=== PATIENT | female | born 1955 | race Two or more races ===

== ENCOUNTER → 2016-09-08 | Emergency (ER) | payer OTHER ==
[2016-09-08 22:47] VITALS: BP 139/89; PULSE 88; TEMP 98; BMI 24.7
--- NOTE | 2016-09-08 23:30 | PDOC ---
History of Present Illness - General History Source: Patient Exam Limitations: No Limitations - History of Present Illness Initial Comments: 09/08/16 23:39 The patient is a 60 year old female with significant past medical history of CVA , hypertension, and diabetes who presents to the ED after an acute episode of dizziness. Patient describes her dizziness as the room spinning with associated nausea and nonbloody vomiting around 9pm. Her symptoms resolved at time of arrival. She also has complaints of headache everyday for the past week, mostly in the morning. Patient denies diaphoresis, vision changes, slurred speech, bladder/bowel incontinence, focal weakness/paresthesias, SOB, chest pain, or palpitations. She denies h/o of vertigo. The patient denies fever, chills, cough, abdominal pain, and diarrhea. Allergies: NKDA Social History: No alcohol, tobacco, or drug use reported. Past Surgical History: None reported PCP: Dr. Darion Morales <Velma Monreal - Last Filed: 09/09/16 01:28> - General History Source: Patient, Family <Panchito Moreno - Last Filed: 09/09/16 01:58> - General Chief Complaint: Nausea/Vomiting Stated Complaint: BLOOD PRESSURE PROBLEM Time Seen by Provider: 09/08/16 23:20 Past History <Velma Monreal - Last Filed: 09/09/16 01:28> - Past Medical History CVA: Yes Diabetes: Yes HTN: Yes Psychiatric Problems: Yes (Depression) - Immunization History Immunization Up to Date: No - Psycho/Social/Smoking Cessation Hx Anxiety: No Suicidal Ideation: No Smoking History: Unknown if ever smoked Have you smoked in the past 12 months: No Hx Alcohol Use: No Drug/Substance Use Hx: No Substance Use Type: None Hx Substance Use Treatment: No <Panchito Moreno - Last Filed: 09/09/16 01:58> - Past Medical History Allergies/Adverse Reactions: Allergies Allergy/AdvReac Type Severity Reaction Status Date / Time No Known Allergies Allergy Verified 09/08/16 22:44 Home Medications: Ambulatory Orders Aspirin Coated [Ecotrin -] 81 mg PO DAILY #30 tablet.ec 10/27/14 Risperidone [Risperdal] 1 mg PO TID 12/18/15 Sertraline HCl [Zoloft] 100 mg PO DAILY 12/18/15 Clonazepam [Klonopin -] 0.5 mg PO Q12H PRN #0 tablet MDD 2 12/21/15 Insulin (LOG) Aspart [NovoLOG -] 15 units SQ TIDAC vial 12/21/15 Acetaminophen [Tylenol .Regular Strength -] 650 mg PO Q4H PRN #0 tablet Insulin Aspart [Novolog] 15 unit SQ AC #1 box 06/13/16 Insulin Detemir [Levemir Flextouch] 18 unit SQ HS #1 box 06/13/16 Miscellaneous Medical Supply [Outpatient Order] 1 unit SCJ QID #120 syringe Review of Systems - Review of Systems Able to Perform ROS?: Yes Comments:: 09/08/16 23:40 +dizziness, nausea, vomiting, headache Absent: fever, chills, cough, diaphoresis, vision changes, slurred speech, bladder/bowel incontinence, focal weakness/paresthesias, SOB, chest pain, palpitations, abdominal pain, and diarrhea <Velma Monreal - Last Filed: 09/09/16 01:28> *Physical Exam - Vital Signs Last Vital Signs Temp Pulse Resp BP Pulse Ox 98 F 88 18 139/89 99 09/08/16 22:45 09/08/16 22:45 09/08/16 22:45 09/08/16 22:45 09/08/16 22:45 <Velma Monreal - Last Filed: 09/09/16 01:28> - Vital Signs Last Vital Signs Temp Pulse Resp BP Pulse Ox 98 F 88 18 139/89 99 09/08/16 22:45 09/08/16 22:45 09/08/16 22:45 09/08/16 22:45 09/08/16 22:45 - Physical Exam General Appearance: Yes: Nourished, Appropriately Dressed. No: Apparent Distress HEENT: positive: EOMI, MANDI, Normal ENT Inspection Neck: positive: Supple. negative: Tender, Carotid bruit Respiratory/Chest: positive: Lungs Clear, Normal Breath Sounds. negative: Chest Tender, Respiratory Distress Cardiovascular: positive: Regular Rhythm, Regular Rate Gastrointestinal/Abdominal: positive: Normal Bowel Sounds, Soft Musculoskeletal: positive: Normal Inspection. negative: CVA Tenderness Extremity: positive: Normal Capillary Refill, Normal Range of Motion Neurologic: positive: furnace brazer II-XII NML intact, Fully Oriented, Alert, Normal Mood/ Affect, Normal Response, Motor Strength 5/5 <Panchito Moreno - Last Filed: 09/09/16 01:58> ED Treatment Course - RADIOLOGY Radiograph Interpretation: 09/09/16 01:28 EXAM: CT brain without contrast Reviewed by Imaging weight and balance control agent: FINDINGS: Normal brain. No hemorrhage. No visible infarct. No hydrocephalus shift or herniation. <Velma Monreal - Last Filed: 09/09/16 01:28> Medical Decision Making - Medical Decision Making 09/09/16 01:57 LIEKLY DEHYDRATION / VERTIGO NEURO INTACT CT OK ASYMPTOMATIC <Panchito Moreno - Last Filed: 09/09/16 01:58> *DC/Admit/Observation/Transfer - Attestations Scribe Attestion: 09/08/16 23:40 Documentation prepared by Velma Monreal, acting as medical secretary for Panchito Moreno MD <Velma Monreal - Last Filed: 09/09/16 01:28> <Panchito Moreno - Last Filed: 09/09/16 01:58> Diagnosis at time of Disposition: Vertigo - Discharge Dispostion Disposition: HOME Condition at time of disposition: Improved - Referrals Referrals: Darion Morales [Primary Care Provider] - Call tomorrow - Patient Instructions Additional Instructions: PLENTY OF FLUIDS (WATER) REST SEE YOUR DOCTOR TOMORROW DISCUSSED RETURN IF RECURRENCE OR NEW SYMPTOMS
== END | disposition home or self-care (01) ==
LOC: JER 22:37
DX: R12 Heartburn (principal); I10 Essential (primary) hypertension; E11.9 Type 2 diabetes mellitus without complications; Z79.4 Long term (current) use of insulin; F32.9 Major depressive disorder, single episode, unspecified; Z86.73 Personal history of transient ischemic attack (TIA), and cerebral infarction without residual deficits
CPT/HCPCS: 70450-TC; 99281-25

== ENCOUNTER → 2017-01-10 | Emergency (ER) | payer OTHER ==
[~2017-01-10] MED LIST: SODIUM CHLORIDE 1,000 ML IV STA
[2017-01-10 15:18] VITALS: PULSE 102; TEMP 97.9; BMI 23.9
--- NOTE | 2017-01-10 15:47 | PDOC ---
History of Present Illness - History of Present Illness Initial Comments: 01/10/17 16:02 Ms. Patel is a 61 year old female, with a significant past medical history of DMII, who presents to the emergency department on advice of PCP after experiencing blood sugars in the 500's for the past week. She further reports that she has also had 4 months of urgenc, requency and burning with urination. The patient denies chest pain, shortness of breath, headache and dizziness. Endorses some nausea for the past few days but denies fever, chills, vomit, diarrhea and constipation. Denies hematuria. Allergies: NKDA Past surgical history: tobal ligation, hysterectomy for fibroids, lipomas Social history: Denies smoking and EtOH PMD - Darion Morales 01/10/17 16:10 <Taz Howell - Last Filed: 01/10/17 17:55> <Rodriguez Mcmahon - Last Filed: 01/10/17 18:34> - General Chief Complaint: Blood Sugar Problem Stated Complaint: DEHYDRATED Time Seen by Provider: 01/10/17 15:32 Past History - Past Medical History CVA: Yes Diabetes: Yes HTN: Yes Psychiatric Problems: Yes (Depression) - Immunization History Immunization Up to Date: No - Psycho/Social/Smoking Cessation Hx Anxiety: No Suicidal Ideation: No Smoking History: Never smoked Have you smoked in the past 12 months: No Information on smoking cessation initiated: No Hx Alcohol Use: No Drug/Substance Use Hx: No Substance Use Type: None Hx Substance Use Treatment: No <Taz Howell - Last Filed: 01/10/17 17:55> <Rodriguez Mcmahon - Last Filed: 01/10/17 18:34> - Past Medical History Allergies/Adverse Reactions: Allergies Allergy/AdvReac Type Severity Reaction Status Date / Time No Known Allergies Allergy Verified 01/10/17 15:18 Home Medications: Ambulatory Orders Insulin (LOG) Aspart [NovoLOG -] 15 units SQ TIDAC vial 12/21/15 Insulin Aspart [Novolog] 15 unit SQ AC #1 box 06/13/16 Insulin Detemir [Levemir Flextouch] 18 unit SQ HS #1 box 06/13/16 Review of Systems - Review of Systems Comments:: 01/10/17 16:02 GENERAL/CONSTITUTIONAL: No fever or chills. No weakness. HEAD, EYES, EARS, NOSE AND THROAT: No change in vision. No ear pain or discharge. No sore throat. CARDIOVASCULAR: No chest pain or shortness of breath RESPIRATORY: No cough, wheezing, or hemoptysis. GASTROINTESTINAL: +Some nausea, no vomiting, diarrhea or constipation. GENITOURINARY: +Endorses dysuria and frequency MUSCULOSKELETAL: No joint or muscle swelling or pain. No neck or back pain. SKIN: No rash NEUROLOGIC: No headache, vertigo, loss of consciousness, or change in strength/ sensation. ENDOCRINE: No increased thirst. No abnormal weight change HEMATOLOGIC/LYMPHATIC: No anemia, easy bleeding, or history of blood clots. ALLERGIC/IMMUNOLOGIC: No hives or skin allergy. 01/10/17 16:17 <Taz Howell - Last Filed: 01/10/17 17:55> *Physical Exam - Vital Signs Last Vital Signs Temp Pulse Resp BP Pulse Ox 97.9 F 102 H 18 114/80 98 01/10/17 15:15 01/10/17 15:15 01/10/17 15:15 01/10/17 15:15 01/10/17 15:15 - Physical Exam Comments: 01/10/17 16:02 GENERAL: Awake, alert, and fully oriented, in no acute distress HEAD: No signs of trauma, normocephalic, atraumatic EYES: PERRLA, EOMI, sclera anicteric, conjunctiva clear ENT: Auricles normal inspection, hearing grossly normal, nares patent, oropharynx clear without exudates. Moist mucosa NECK: Normal ROM, supple, no lymphadenopathy, JVD, or masses LUNGS: No distress, speaks full sentences, clear to auscultation bilaterally HEART: Regular rate and rhythm, normal S1 and S2, no murmurs, rubs or gallops, peripheral pulses normal and equal bilaterally. ABDOMEN: Soft, nontender, normoactive bowel sounds. No guarding, no rebound. No masses EXTREMITIES: Skin of legs appears taught, Normal range of motion, no edema. No clubbing or cyanosis. NEUROLOGICAL: Cranial nerves II through XII grossly intact. Normal speech, normal gait, no focal sensorimotor deficits SKIN: Warm, Dry, no rashes or lesions noted. 01/10/17 16:17 01/10/17 17:55 <Taz Howell - Last Filed: 01/10/17 17:55> - Vital Signs Last Vital Signs Temp Pulse Resp BP Pulse Ox 97.9 F 102 H 18 114/80 98 01/10/17 15:15 01/10/17 15:15 01/10/17 15:15 01/10/17 15:15 01/10/17 15:15 <Rodriguez Mcmahon - Last Filed: 01/10/17 18:34> ED Treatment Course - LABORATORY CBC & Chemistry Diagram: 01/10/17 16:05 01/10/17 16:05 <Taz Howell - Last Filed: 01/10/17 17:55> - LABORATORY CBC & Chemistry Diagram: 01/10/17 16:05 01/10/17 16:05 - ADDITIONAL ORDERS Additional order review: Laboratory Results 01/10/17 01/10/17 01/10/17 16:20 16:15 16:05 INR PTT (Actin FS) VBG pH 7.32 POC VBG pCO2 58.7 H POC VBG pO2 21.2 L D Mixed VBG HCO3 29.2 H Sodium 141 Potassium 4.5 D Chloride 106 Carbon Dioxide 28 Anion Gap 7 L BUN 18 Creatinine 1.0 Creat Clearance w eGFR 56.00 Random Glucose 111 H D Calcium 10.2 H Total Bilirubin 0.3 D AST 19 ALT 27 D Alkaline Phosphatase 97 D Creatine Kinase CK-MB (CK-2) Troponin I Total Protein 8.4 H D Albumin 3.7 D Urine Color Straw Urine Appearance Clear Urine pH 5.0 Urine Protein Negative Urine Glucose (UA) 3+ H Urine Ketones Negative Urine Blood Negative Urine Nitrite Negative Urine Bilirubin Negative Urine Urobilinogen Negative Ur Leukocyte Esterase Negative Acetone, Qual 01/10/17 01/10/17 01/10/17 16:03 16:03 16:03 INR 0.95 PTT (Actin FS) 29.1 VBG pH POC VBG pCO2 POC VBG pO2 Mixed VBG HCO3 Sodium Potassium Chloride Carbon Dioxide Anion Gap BUN Creatinine Creat Clearance w eGFR Random Glucose Calcium Total Bilirubin AST ALT Alkaline Phosphatase Creatine Kinase 171 D CK-MB (CK-2) < 1.000 Troponin I < 0.02 Total Protein Albumin Urine Color Urine Appearance Urine pH Urine Protein Urine Glucose (UA) Urine Ketones Urine Blood Urine Nitrite Urine Bilirubin Urine Urobilinogen Ur Leukocyte Esterase Acetone, Qual Negative L 01/10/17 16:05 RBC 4.28 MCV 89.5 MCHC 33.0 RDW 14.2 MPV 10.3 - Medications Given in the ED: ED Medications Discontinued Medications Generic Name Dose Route Start Last Admin Trade Name Jessy PRN Reason Stop Dose Admin Sodium Chloride 1,000 mls @ 1,000 mls/hr 01/10/17 15:50 01/10/17 16:24 Normal Saline - IV 01/10/17 16:49 1,000 mls/hr .Q1H STA Administration <Rodriguez Mcmahon - Last Filed: 01/10/17 18:34> Medical Decision Making - Medical Decision Making 01/10/17 16:19 Patient presents on advice of PCP after week long of 500's sugars and 4 months of frequency, urgency, and dysuria. R/O DKA; look for source of increased blood sugars. Patient blood sugar 111. 01/10/17 17:55 All lab values returned unconcerning. Discharging with follow-up with PCP as needed. Patient in no acute distress. 01/10/17 17:56 <Taz Howell - Last Filed: 01/10/17 17:55> *DC/Admit/Observation/Transfer - Attestations Physician Attestion: 01/10/17 17:58 I, Dr. Taz Howell, attest that this document has been prepared under my direction and personally reviewed by me in its entirety. I further attest, that it accurately reflects all work, treatment, procedures and medical decision -making performed by me. <Taz Howell - Last Filed: 01/10/17 17:55> - Discharge Dispostion Admit: No <Rodriguez Mcmahon - Last Filed: 01/10/17 18:34> Diagnosis at time of Disposition: Hyperglycemia - Discharge Dispostion Disposition: HOME Condition at time of disposition: Improved - Referrals Referrals: Darion Morales [Primary Care Provider] - - Patient Instructions Printed Discharge Instructions: DI for Hyperglycemia -- Adult Additional Instructions: Vuelva al departamento de emergencia inmediatamente con CUALQUIER nuevo, persistente o empeorando los sntomas. Contine monitoreando blair nivel de azcar en la lito y tome blair insulina segn lo prescrito. Debe llamar y seguir con blair mdico maana para jyoti evaluacin ms detallada de rain sntomas. Los resultados fueron discutidos con usted. Por favor, asegrese de que blair mdico revise los resultados de blair evaluacin de emergencia. Return to the emergency department immediately with ANY new, persistent or worsening symptoms. Continue monitoring your blood sugar and take your insulin as prescribed. You MUST call and follow up with your doctor tomorrow for further evaluation of your symptoms. Results were discussed with you. Please make sure your doctor reviews the results of your emergency evaluation. Print Language: ROMANSH
--- NOTE | 2017-01-10 16:16 | PDOC ---
Attending Attestation - Resident Resident Name: Taz Howell - ED Attending Attestation I have performed the following: I have examined & evaluated the patient, The case was reviewed & discussed with the resident, I agree w/resident's findings & plan, Exceptions are as noted - HPI HPI: 01/10/17 18:19 61y hx of insulin dependent diabetes sent to the ED by PMD for hypergylcemia. Pt endorses having bGMs in the 3-500s at home,she states she has pati urinating frequently and drinking milk and water. Pt denies any recent illnesses, fever/ chills, cp, abd pain, diarrhea. No recent change in meds. pts exam unremrakble pts labs reviewed no signs of DKA PMD - Darion Moarles 01/10/17 18:38 will dc the pt with pmd fu return precautions were discussed I discussed the physical exam findings, ancillary test results and final diagnoses with the patient. I answered all of the patient's questions. The patient was satisfied with the care received and felt comfortable with the discharge plan and treatment plan. The patient will call their primary care physician within 24 hours to arrange follow-up and will return to the Emergency Department with any new, persistent or worsening symptoms. - Physicial Exam PE: 01/10/17 18:38 see above - Medical Decision Making 01/10/17 18:40 see above
[2017-01-10 16:26] LABS: MCH 29.6 pg (25.7-33.7); MEAN CELL VOLUME 89.5 fl (80-96); MEAN PLT VOLUME 10.3 fl (7.5-11.1); PLATELET COUNT 192 K/MM3 (134-434); RDW 14.2 % (11.6-15.6); WHITE BLOOD COUNT 5.6 K/mm3 (4.0-10.0)
[2017-01-10 16:32] LABS: VENOUS PH 7.32 (7.32-7.42)
[2017-01-10 16:33] LABS: VENOUS BLOOD GAS HCO3 29.2 meq/L (19-25)
[2017-01-10 16:33] LABS: URINE APPEARANCE CLEAR; URINE BILIRUBIN NEGATIVE (NEGATIVE); URINE BLOOD NEGATIVE (NEGATIVE); URINE COLOR STRAW; URINE GLUCOSE (UA) 3+ (NEGATIVE); URINE KETONE NEGATIVE (NEGATIVE); URINE LEUK ESTERASE NEGATIVE (NEGATIVE); URINE NITRITE NEGATIVE (NEGATIVE); URINE PROTEIN NEGATIVE (NEGATIVE); URINE UROBILINOGEN NEGATIVE mg/dL (0.2-1.0)
[2017-01-10 16:41] LABS: INR 0.95 (0.82-1.09); PROTHROMBIN TIME (PATIENT) 10.4 SEC (9.98-11.88)
[2017-01-10 16:44] LABS: ACTIVATED PTT 29.1 SECONDS (26.9-34.4)
[2017-01-10 16:54] LABS: ALBUMIN 3.7 g/dl (3.4-5.0); ANION GAP 7 (8-16); BILIRUBIN,TOTAL 0.3 mg/dL (0.2-1.0); CALCIUM 10.2 mg/dL (8.5-10.1); CO2 28 mmol/L (21-32); GLUCOSE,RANDOM 111 mg/dL (74-106); SGOT/AST 19 U/L (15-37); SGPT/ALT 27 U/L (12-78); TOT PROT 8.4 g/dl (6.4-8.2)
[2017-01-10 16:55] LABS: ALK PHOS 97 U/L (45-117)
[2017-01-10 16:57] LABS: TROPONIN I < 0.02 ng/ml (0.00-0.05)
[2017-01-10 18:42] VITALS: BP 138/67
== END | disposition home or self-care (01) ==
LOC: JER 15:12
PROC: 3E0337Z Introduction of Electrolytic and Water Balance Substance into Peripheral Vein, Percutaneous Approach (ICD-10-PCS; principal; 2017-01-10)
DX: E11.65 Type 2 diabetes mellitus with hyperglycemia (principal); Z79.4 Long term (current) use of insulin; I10 Essential (primary) hypertension; F32.9 Major depressive disorder, single episode, unspecified; Z86.73 Personal history of transient ischemic attack (TIA), and cerebral infarction without residual deficits
CPT/HCPCS: 36415; 80053; 81003; 82009; 82550; 82553; 82803; 84484; 85027; 85610; 85730; 87086; 96360; 99284-25

== ENCOUNTER 2017-06-25 12:14 | Inpatient (IN) | payer OTHER ==
[2017-06-25 12:29] VITALS: BMI 24.7
[2017-06-25 13:08] LABS: BASO % 0.4 % (0-2.0); EOS % 0.2 % (0-4.5); HEMATOCRIT 43.6 % (32.4-45.2); HEMOGLOBIN 14.1 GM/dL (10.7-15.3); LYMPH % 9.3 % (8-40); MCH 28.9 pg (25.7-33.7); MCHC 32.4 g/dl (32.0-36.0); MEAN CELL VOLUME 89.3 fl (80-96); MONO % 5.9 % (3.8-10.2); NEUT % 84.2 % (42.8-82.8); PLATELET COUNT 187 K/MM3 (134-434); RBC 4.88 M/mm3 (3.60-5.2); WHITE BLOOD COUNT 10.3 K/mm3 (4.0-10.0)
--- NOTE | 2017-06-25 13:10 | PDOC ---
History of Present Illness - General Chief Complaint: Blood Sugar Problem Stated Complaint: HYPERGLYCEMIA Time Seen by Provider: 06/25/17 12:24 History Source: Patient, Family - History of Present Illness Initial Comments: 06/25/17 13:06 This is a 61 y/o female with h/o DM2 for around 5 to 6 years, on Insulin for 5 years, CVA, HTN and anxiety/depression presenting for hyperglycemia. Last seen her PCP Dr. Betancourt 2 weeks ago. Complains with polyuria and polydipsia. Checks her blood sugar twice a day. In the morning its often between 60-120 and up to 500 States that she eats a lot of plantain-like foods, wasn't aware they were carb- heavy foods . Past History - Past Medical History Allergies/Adverse Reactions: Allergies Allergy/AdvReac Type Severity Reaction Status Date / Time No Known Allergies Allergy Verified 06/25/17 12:28 Home Medications: Ambulatory Orders Insulin (LOG) Aspart [NovoLOG -] 15 units SQ TIDAC vial 12/21/15 Insulin Aspart [Novolog] 15 unit SQ AC #1 box 06/13/16 Insulin Detemir [Levemir Flextouch] 18 unit SQ HS #1 box 06/13/16 CVA: Yes COPD: No Diabetes: Yes HTN: Yes Psychiatric Problems: Yes (Depression) - Immunization History Immunization Up to Date: No - Suicide/Smoking/Psychosocial Hx Smoking History: Unknown if ever smoked Have you smoked in the past 12 months: No Information on smoking cessation initiated: No Hx Alcohol Use: No Drug/Substance Use Hx: No Substance Use Type: None Hx Substance Use Treatment: No Review of Systems - Review of Systems Able to Perform ROS?: Yes Constitutional: No: Symptoms Reported HEENTM: No: Symptoms Reported Respiratory: No: Symptoms reported Cardiac (ROS): No: Symptoms Reported ABD/GI: No: Symptoms Reported : Yes: Burning, Frequency, Flank Pain. No: Symptoms Reported Musculoskeletal: No: Symptoms Reported Integumentary: No: Symptoms Reported Neurological: No: Symptoms reported Endocrine: Yes: Increased Thirst, Increased Urine. No: Symptoms Reported All Other Systems: Reviewed and Negative *Physical Exam - Vital Signs Last Vital Signs Temp Pulse Resp BP Pulse Ox 98.3 F 103 H 18 129/82 100 06/25/17 12:19 06/25/17 12:19 06/25/17 12:19 06/25/17 12:19 06/25/17 12:19 - Physical Exam General Appearance: Yes: Nourished, Appropriately Dressed. No: Apparent Distress HEENT: positive: EOMI, MANDI, Normal ENT Inspection, Other (dry mucus membranes) Neck: negative: Tender Respiratory/Chest: positive: Lungs Clear, Normal Breath Sounds. negative: Chest Tender, Respiratory Distress Cardiovascular: positive: Regular Rhythm, Regular Rate, S1, S2 Gastrointestinal/Abdominal: positive: Normal Bowel Sounds, Flat, Soft. negative : Tender Extremity: positive: Other (ambutation of distal phalanges of 2-5 toes) Integumentary: positive: Normal Color, Dry ED Treatment Course - LABORATORY CBC & Chemistry Diagram: 06/25/17 12:41 06/25/17 15:30 Medical Decision Making - Medical Decision Making 06/25/17 15:38 61F presents with hyperglycemia (546)and polyuria. Spoke to daughter who states that patient is not compliant with meds when alone. Spoke to Dr. Nath who agreed with the plan to replenish fluids + insulin and repeat cmp Hyperglycemia correction revealed hypernatremia (154) for which patient will be admitted under Dr. Lemons 06/25/17 21:36 *DC/Admit/Observation/Transfer Diagnosis at time of Disposition: Dehydration with hypernatremia - Discharge Dispostion Condition at time of disposition: Stable Admit: Yes - Referrals - Patient Instructions - Post Discharge Activity
[2017-06-25 13:17] LABS: URINE APPEARANCE CLEAR; URINE BILIRUBIN NEGATIVE (NEGATIVE); URINE BLOOD NEGATIVE (NEGATIVE); URINE COLOR LTYELLOW; URINE GLUCOSE (UA) 3+ (NEGATIVE); URINE KETONE TRACE (NEGATIVE); URINE LEUK ESTERASE NEGATIVE (NEGATIVE); URINE NITRITE NEGATIVE (NEGATIVE); URINE UROBILINOGEN NEGATIVE mg/dL (0.2-1.0)
[2017-06-25 13:18] LABS: URINE PROTEIN 1+ (NEGATIVE)
[2017-06-25 13:19] LABS: EPI CELLS RARE /HPF (FEW)
--- NOTE | 2017-06-25 13:26 | PDOC ---
Attending Attestation - Resident Resident Name: CollinsAbdoulaye - ED Attending Attestation I have performed the following: I have examined & evaluated the patient, The case was reviewed & discussed with the resident, I agree w/resident's findings & plan, Exceptions are as noted - HPI HPI: 06/25/17 13:25 61 year old female with past medical history of hypertension, insulin-dependent diabetes, hyperlipidemia presentsto the emergency department for hyperglycemia. The patient reports that for several months she's been having difficulty controlling her sugars and has been enduring significant amount of polyuria and polydipsia. She had recently started to feel some dysuria but denies any abdominal pain or fevers. Her sugars have been close to 500s at home. She reports that she is adherent with her long-acting short acting insulin. Denies any chest pain or short of breath. Came into the ED for further evaluation. - Physicial Exam PE: 06/25/17 13:25 GENERAL: Awake, alert, and fully oriented, in no acute distress. +Dry Mucous Membranes HEAD: No signs of trauma EYES: PERRLA, EOMI, sclera anicteric, conjunctiva clear ENT: Auricles normal inspection, hearing grossly normal, nares patent NECK: Normal ROM, supple LUNGS: Breath sounds equal, clear to auscultation bilaterally. No wheezes, and no crackles HEART: Regular rate and rhythm, normal S1 and S2, no murmurs, rubs or gallops ABDOMEN: Soft, nontender, normoactive bowel sounds. No guarding, no rebound. No masses EXTREMITIES: Normal range of motion, no edema. No clubbing or cyanosis. No cords, erythema, or tenderness NEUROLOGICAL: Cranial nerves II through XII grossly intact. Normal speech, normal gait SKIN: Warm, Dry, normal turgor, no rashes or lesions noted. - Medical Decision Making 06/25/17 13:25 Vital Signs Temp Pulse Resp BP Pulse Ox 98.3 F 103 H 18 129/82 100 06/25/17 12:19 06/25/17 12:19 06/25/17 12:19 06/25/17 12:19 06/25/17 12:19 Patient with uncontrolled diabetes presents with hyperglycemia. Patient is to be dry mucous membranes which is consistent with her hyperglycemia. We'll rule out DKA and check for urinary tract infection. Labs, UA, give IV fluids. We'll likely need IV insulin and reassess. 06/25/17 14:33 CBC, BMP 06/25/17 12:41 06/25/17 12:41 CMP Sodium 145 mmol/L (136-145) 06/25/17 12:41 Potassium 4.2 mmol/L (3.5-5.1) 06/25/17 12:41 Chloride 108 mmol/L (98-107) H 06/25/17 12:41 Carbon Dioxide 25 mmol/L (21-32) 06/25/17 12:41 Anion Gap 12 (8-16) 06/25/17 12:41 BUN 28 mg/dL (7-18) H D 06/25/17 12:41 Creatinine 1.6 mg/dL (0.55-1.02) H D 06/25/17 12:41 Creat Clearance w eGFR 32.55 (>60) 06/25/17 12:41 Random Glucose 545 mg/dL (74-106) H* D 06/25/17 12:41 Calcium 10.7 mg/dL (8.5-10.1) H D 06/25/17 12:41 Magnesium 2.1 mg/dL (1.8-2.4) 06/25/17 12:41 Total Bilirubin 0.2 mg/dL (0.2-1.0) D 06/25/17 12:41 AST 15 U/L (15-37) 06/25/17 12:41 ALT 27 U/L (12-78) 06/25/17 12:41 Alkaline Phosphatase 122 U/L (45-117) H D 06/25/17 12:41 Creatine Kinase 78 IU/L (26-192) 06/25/17 12:41 Troponin I < 0.02 ng/ml (0.00-0.05) 06/25/17 12:41 Total Protein 8.4 g/dl (6.4-8.2) H 06/25/17 12:41 Albumin 3.7 g/dl (3.4-5.0) 06/25/17 12:41 Urine Test Results Urine Color Ltyellow 06/25/17 12:41 Urine Appearance Clear 06/25/17 12:41 Urine pH 5.0 (5.0-8.0) 06/25/17 12:41 Ur Specific Humphreys 1.022 (1.001-1.035) 06/25/17 12:41 Urine Protein 1+ (NEGATIVE) H 06/25/17 12:41 Urine Glucose (UA) 3+ (NEGATIVE) H 06/25/17 12:41 Urine Ketones Trace (NEGATIVE) H 06/25/17 12:41 Urine Blood Negative (NEGATIVE) 06/25/17 12:41 Urine Nitrite Negative (NEGATIVE) 06/25/17 12:41 Urine Bilirubin Negative (NEGATIVE) 06/25/17 12:41 Ur Epithelial Cells Rare /HPF (FEW) 06/25/17 12:41 Patient has hyperglycemia but no increased anion gap. Patient does have a degree of acute kidney insufficiency which is suspect is likely prerenal. We'll give us a dose of IV insulin and some IV fluids and repeat the CMP. Intracranial remains elevated, the patient will need to be admitted to the hospital. If the creatinine and glucose is improved, patient be discharged with outpatient follow-up. This plan was discussed with the patient's check airman Dr. Stern who agrees with the plan. 06/25/17 16:16 CMP Sodium 151 mmol/L (136-145) H 06/25/17 15:30 Potassium 3.8 mmol/L (3.5-5.1) 06/25/17 15:30 Chloride 114 mmol/L (98-107) H 06/25/17 15:30 Carbon Dioxide 27 mmol/L (21-32) 06/25/17 15:30 Anion Gap 10 (8-16) 06/25/17 15:30 BUN 24 mg/dL (7-18) H 06/25/17 15:30 Creatinine 1.2 mg/dL (0.55-1.02) H D 06/25/17 15:30 Creat Clearance w eGFR 45.37 (>60) 06/25/17 15:30 Random Glucose 238 mg/dL (74-106) H D 06/25/17 15:30 Calcium 9.7 mg/dL (8.5-10.1) 06/25/17 15:30 Magnesium 2.1 mg/dL (1.8-2.4) 06/25/17 12:41 Total Bilirubin 0.2 mg/dL (0.2-1.0) 12/31/17 15:30 AST 11 U/L (15-37) L D 06/25/17 15:30 ALT 24 U/L (12-78) 06/25/17 15:30 Alkaline Phosphatase 105 U/L (45-117) 06/25/17 15:30 Creatine Kinase 78 IU/L (26-192) 06/25/17 12:41 Troponin I < 0.02 ng/ml (0.00-0.05) 06/25/17 12:41 Total Protein 7.1 g/dl (6.4-8.2) 06/25/17 15:30 Albumin 3.1 g/dl (3.4-5.0) L 06/25/17 15:30 Repeat Cr is 2.1, though Na is 151. Corrected Na is 154. Will need to admit the patient to the hospital for hyperglycemia, dehydration and hypernatremia. Pt's MD is Dr. Darion Morales Heart Score/ECG Review #1 ECG reviewed & interpreted by me at: 12:35 06/25/17 13:26 NSR 105, no std/arya, Q wave III, normal axis, normal intervals, QTC 399 msec
[2017-06-25 13:33] LABS: ALBUMIN 3.7 g/dl (3.4-5.0); ANION GAP 12 (8-16); BLOOD UREA NITROGEN 28 mg/dL (7-18); CALCIUM 10.7 mg/dL (8.5-10.1); CHLORIDE 108 mmol/L (98-107); CO2 25 mmol/L (21-32); MAGNESIUM 2.1 mg/dL (1.8-2.4); POTASSIUM 4.2 mmol/L (3.5-5.1); SODIUM 145 mmol/L (136-145)
[2017-06-25 13:39] LABS: ALK PHOS 122 U/L (45-117); BILIRUBIN,TOTAL 0.2 mg/dL (0.2-1.0); CREATININE 1.6 mg/dL (0.55-1.02); SGOT/AST 15 U/L (15-37); SGPT/ALT 27 U/L (12-78); TOT PROT 8.4 g/dl (6.4-8.2)
[2017-06-25 13:47] LABS: GLUCOSE,RANDOM 545 mg/dL (74-106)
[2017-06-25] MEDS ORDERED: SODIUM CHLORIDE 1,000 ML IV STA (13:51)
[2017-06-25] MEDS ORDERED: INSULIN REGULAR HUMAN 100 UNITS/ML *VIAL IVPUSH ONE (13:51)
[2017-06-25] MEDS ORDERED: INSULIN REGULAR HUMAN 100 UNITS/ML *VIAL ONE (13:55)
--- NOTE | 2017-06-25 14:49 | EKG ---
Test Reason : Blood Pressure : / mmHG Vent. Rate : 105 BPM Atrial Rate : 105 BPM P-R Int : 162 ms QRS Dur : 080 ms QT Int : 302 ms P-R-T Axes : 057 003 034 degrees QTc Int : 399 ms SINUS TACHYCARDIA POSSIBLE LEFT ATRIAL ENLARGEMENT ABNORMAL ECG WHEN COMPARED WITH ECG OF 08-JUN-2016 16:24, NO SIGNIFICANT CHANGE WAS FOUND BASELINE ARTIFACT Confirmed by ASH CASTANO MD ([id number]) on 06/25/2017 2:48:38 PM Referred By: Confirmed By:ASH CASTANO MD
[2017-06-25 16:08] LABS: ALBUMIN 3.1 g/dl (3.4-5.0); ALK PHOS 105 U/L (45-117); ANION GAP 10 (8-16); BILIRUBIN,TOTAL 0.2 mg/dL (0.2-1.0); BLOOD UREA NITROGEN 24 mg/dL (7-18); CALCIUM 9.7 mg/dL (8.5-10.1); CHLORIDE 114 mmol/L (98-107); CO2 27 mmol/L (21-32); CREATININE 1.2 mg/dL (0.55-1.02); GLUCOSE,RANDOM 238 mg/dL (74-106); POTASSIUM 3.8 mmol/L (3.5-5.1); SGOT/AST 11 U/L (15-37); SGPT/ALT 24 U/L (12-78); SODIUM 151 mmol/L (136-145); TOT PROT 7.1 g/dl (6.4-8.2)
--- NOTE | 2017-06-25 17:34 | HP ---
CHIEF COMPLAINT: polyuria/polydipsia PCP: Dr. Darion Morales HISTORY OF PRESENT ILLNESS: hyperglycemia Patient is a 61 year old female with a significant past medical history of hypertension (on no home meds), insulin-dependent diabetes (non compliance reported), hyperlipidemia and CVA (left sided residual - walks with a cane). She presents to the ED for hyperglycemia of 545. As per ED records, patient reports that she has had difficulty controlling her blood sugars at home and has had significant polyuria and polydipsia. She reports her blood sugars to be in the 500s at home despite injecting herself with Novolog Flex pen 70/20 12 units before meals and Tresiba 20 units in the morning. She states she has been compliant with the home medications but does not count carbs or follow a diabetic diet. [place] pashto speak [place]. In her grindstone language she stated to me that she once once in a diabetic coma in the [place]. She also reports that she had a gangrenous right foot 3rd toe tip and the tip of the toe fell off on its own without surgical interventions. She came into the ED for further evaluation of her hyperglycemia. She states she is compliant with her home medications. ER course was notable for: (1) hyperglycemia 545, given 5 units of short acting insulin in ED > glucose 200s (2) hypernatremia 145, then 151 after 1 liter fluid bolus (3) EKG ST at 105, possible left atrial infarctions, no significant changes compared to EKG of 06/08/16 (4) Acetone negative, anion gap 10 (5) Bun 24/1.6 (6) UA noted Recent Travel: none recently PAST MEDICAL HISTORY: hypertension (on no home meds), insulin-dependent diabetes (non compliance reported) and hyperlipidemia. PAST SURGICAL HISTORY: none Social History: Smoking: denies Alcohol: denies Drugs: denies Family History: Allergies No Known Allergies Allergy (Verified 06/25/17 12:28) HOME MEDICATIONS: Home Medications Medication Instructions Recorded Insulin (LOG) Aspart [NovoLOG -] 15 units SQ TIDAC vial 12/21/15 Insulin Aspart [Novolog] 15 unit SQ AC #1 box 06/13/16 Insulin Detemir [Levemir Flextouch] 18 unit SQ HS #1 box 06/13/16 REVIEW OF SYSTEMS CONSTITUTIONAL: Absent: fever, chills, diaphoresis, generalized weakness, malaise, loss of appetite, weight change HEENT: Absent: rhinorrhea, nasal congestion, throat pain, throat swelling, difficulty swallowing, mouth swelling, ear pain, eye pain, visual changes CARDIOVASCULAR: Absent: chest pain, syncope, palpitations, irregular heart rate, lightheadedness , peripheral edema RESPIRATORY: Absent: cough, shortness of breath, dyspnea with exertion, orthopnea, wheezing, stridor, hemoptysis GASTROINTESTINAL: Absent: abdominal pain, abdominal distension, nausea, vomiting, diarrhea, constipation, melena, hematochezia GENITOURINARY: Absent:flank pain, genital pain MUSCULOSKELETAL: Absent: myalgia, arthralgia, joint swelling, back pain, neck pain SKIN: Absent: rash, itching, pallor HEMATOLOGIC/IMMUNOLOGIC: Absent: easy bleeding, easy bruising, lymphadenopathy, frequent infections ENDOCRINE: Absent: unexplained weight gain, unexplained weight loss, heat intolerance, cold intolerance NEUROLOGIC: Absent: headache, focal weakness or paresthesias, dizziness, unsteady gait, seizure, mental status changes, bladder or bowel incontinence PSYCHIATRIC: Absent: anxiety, depression, suicidal or homicidal ideation, hallucinations. PHYSICAL EXAMINATION Vital Signs - 24 hr 06/25/17 06/25/17 12:19 16:47 Temperature 98.3 F Pulse Rate 103 H Pulse Rate [ 68 Left Apical] Respiratory 18 16 Rate Blood Pressure 129/82 Blood Pressure 137/81 [Left Arm] O2 Sat by Pulse 100 98 Oximetry (%) GENERAL: Awake, alert, and fully oriented, in no acute distress. HEAD: Normal with no signs of trauma. EYES: Pupils equal, round and reactive to light, extraocular movements intact, sclera anicteric, conjunctiva clear. No lid lag. EARS, NOSE, THROAT: Ears normal, nares patent, oropharynx clear without exudates. Moist mucous membranes. NECK: Normal range of motion, supple without lymphadenopathy, JVD, or masses. LUNGS: Breath sounds equal, clear to auscultation bilaterally. No wheezes, and no crackles. No accessory muscle use. HEART: Regular rate and rhythm, normal S1 and S2 without murmur, rub or gallop. ABDOMEN: Soft, nontender, not distended, normoactive bowel sounds, no guarding, no rebound, no masses. No hepatomegaly or splenomegaly. MUSCULOSKELETAL: Normal range of motion at all joints. No bony deformities or tenderness. No CVA tenderness. UPPER EXTREMITIES: 2+ pulses, warm, well-perfused. No cyanosis. No clubbing. No peripheral edema. LOWER EXTREMITIES: 2+ pulses, warm, well-perfused. No calf tenderness. No peripheral edema. NEUROLOGICAL: Cranial nerves II-XII intact. Normal speech. Normal gait. PSYCHIATRIC: Cooperative. Good eye contact. Appropriate mood and affect. SKIN: Warm, dry, normal turgor, no rashes or lesions noted, normal capillary refill. Laboratory Results - last 24 hr 06/25/17 06/25/17 06/25/17 12:41 12:41 12:41 WBC 10.3 H D RBC 4.88 Hgb 14.1 D Hct 43.6 D MCV 89.3 MCH 28.9 MCHC 32.4 RDW 14.0 Plt Count 187 MPV 11.0 D Neutrophils % 84.2 H D Lymphocytes % 9.3 D Monocytes % 5.9 Eosinophils % 0.2 D Basophils % 0.4 Sodium 145 Potassium 4.2 Chloride 108 H Carbon Dioxide 25 Anion Gap 12 BUN 28 H D Creatinine 1.6 H D Creat Clearance w eGFR 32.55 Random Glucose 545 H* D Calcium 10.7 H D Magnesium 2.1 Total Bilirubin 0.2 D AST 15 ALT 27 Alkaline Phosphatase 122 H D Creatine Kinase 78 Troponin I < 0.02 Total Protein 8.4 H Albumin 3.7 Urine Color Ltyellow Urine Appearance Clear Urine pH 5.0 Ur Specific [place] 1.022 Urine Protein 1+ H Urine Glucose (UA) 3+ H Urine Ketones Trace H Urine Blood Negative Urine Nitrite Negative Urine Bilirubin Negative Urine Urobilinogen Negative Urine WBC (Auto) 1 Urine RBC (Auto) 1 Ur Epithelial Cells Rare Acetone, Qual 06/25/17 06/25/17 13:00 15:30 WBC RBC Hgb Hct MCV MCH MCHC RDW Plt Count MPV Neutrophils % Lymphocytes % Monocytes % Eosinophils % Basophils % Sodium 151 H Potassium 3.8 Chloride 114 H Carbon Dioxide 27 Anion Gap 10 BUN 24 H Creatinine 1.2 H D Creat Clearance w eGFR 45.37 Random Glucose 238 H D Calcium 9.7 Magnesium Total Bilirubin 0.2 AST 11 L D ALT 24 Alkaline Phosphatase 105 Creatine Kinase Troponin I Total Protein 7.1 Albumin 3.1 L Urine Color Urine Appearance Urine pH Ur Specific [place] Urine Protein Urine Glucose (UA) Urine Ketones Urine Blood Urine Nitrite Urine Bilirubin Urine Urobilinogen Urine WBC (Auto) Urine RBC (Auto) Ur Epithelial Cells Acetone, Qual Negative L ASSESSMENT/PLAN: Patient is a 61 year old female with a significant past medical history of hypertension (on no home meds), insulin-dependent diabetes (non compliance reported), hyperlipidemia and CVA (left sided residual - walks with a cane). She presents to the ED for hyperglycemia of 545. As per ED records, patient reports that she has had difficulty controlling her blood sugars at home and has had significant polyuria and polydipsia. She reports her blood sugars to be in the 500s at home despite injecting herself with Novolog Flex pen 70/20 12 units before meals and Tresiba 20 units in the morning. She states she has been compliant with the home medications but does not count carbs or follow a diabetic diet. [place] pashto speak only. In her grindstone language she stated to me that she once once in a diabetic coma in the [place]. She also reports that she had a gangrenous right foot 3rd toe tip and the tip of the toe fell off on its own without surgical interventions. She came into the ED for further evaluation of her hyperglycemia. She states she is compliant with her home medications. Endocrine: Hyperglycemia/Diabetes mellitus No anion gap, + acetone BGMs 500 to 230 after insulin given in ED Start on Novolog SS, Levemir at bedtime Uptitrate Document Restorer consulted by ED [id number] in a.m. Renal Acute Kidney Injury Likely Pre renal 1/2 NS @ 50cc/hr Repeat CMP. a.m. Renal ultrasound if bun/creat remain elevated : Polyuria, UA reviewed Protein +1, Ketones Urine culture pendind Urinary Frequency, UC sent Monitor No signs of infection Hyperkalemia Given fluid bolus, NA now 154 corrected 1/2 NS, repeat labs at 9p today Cardiology: Hypertension, controlled Not on home medications As per pt, her MD took her off cardiac meds 2 years ago Monitor BP Hyperlipidemia Lipid panel in a.m Neuro: CVA, left sided weakness Walks with cane Reports she is not on Asa Will start here F.E.N. Fluids: 1/2 ns at 50cc/hr Electrolytes: hyperna: corrected 154 Nutrition: diabetic diet Prophylaxis: DVT: deferred, LOS <48 hours GI: deferreed Disposition . full code, OBS
[2017-06-25] MEDS ORDERED: INSULIN SLIDING SCALE (NOVOLOG) 1 VIAL SQ SCH (17:45)
[2017-06-25] MEDS: SODIUM CHLORIDE 0.45% 1,000 ML IV SCH ×2 (18:30→21:09)
[2017-06-25] MEDS ORDERED: INSULIN DETEMIR 100 UNITS/ML MDV SQ SCH (22:00)
[2017-06-25 22:10] LABS: ALBUMIN 2.8 g/dl (3.4-5.0); ANION GAP 5 (8-16); BILIRUBIN,TOTAL 0.2 mg/dL (0.2-1.0); BLOOD UREA NITROGEN 21 mg/dL (7-18); CALCIUM 8.5 mg/dL (8.5-10.1); CHLORIDE 111 mmol/L (98-107); CO2 29 mmol/L (21-32); CREATININE 1.2 mg/dL (0.55-1.02); SGOT/AST 10 U/L (15-37); SGPT/ALT 20 U/L (12-78); SODIUM 145 mmol/L (136-145); TOT PROT 6.5 g/dl (6.4-8.2)
[2017-06-25 22:11] LABS: ALK PHOS 94 U/L (45-117)
[2017-06-25 22:22] LABS: GLUCOSE,RANDOM 338 mg/dL (74-106)
[2017-06-25] MEDS: HEPARIN NA (PORCINE) 5,000 UNITS/ML 1ML VIAL SQ SCH (22:23)
[2017-06-25] MEDS: INSULIN SLIDING SCALE (NOVOLOG) 1 VIAL SQ SCH (22:24)
[2017-06-26] MEDS: INSULIN SLIDING SCALE (NOVOLOG) 1 VIAL SQ SCH ×4 (06:26→22:23)
[2017-06-26 07:49] LABS: HEMATOCRIT 36.4 % (32.4-45.2); HEMOGLOBIN 11.8 GM/dL (10.7-15.3); MCH 29.1 pg (25.7-33.7); MCHC 32.5 g/dl (32.0-36.0); MEAN CELL VOLUME 89.4 fl (80-96); MEAN PLT VOLUME 10.4 fl (7.5-11.1); PLATELET COUNT 148 K/MM3 (134-434); RBC 4.08 M/mm3 (3.60-5.2); RDW 13.7 % (11.6-15.6); WHITE BLOOD COUNT 7.2 K/mm3 (4.0-10.0)
[2017-06-26 08:06] LABS: CHLORIDE 109 mmol/L (98-107); POTASSIUM 3.4 mmol/L (3.5-5.1); SODIUM 143 mmol/L (136-145)
[2017-06-26 08:18] LABS: ALBUMIN 2.7 g/dl (3.4-5.0); ALK PHOS 83 U/L (45-117); ANION GAP 9 (8-16); BILIRUBIN,TOTAL 0.3 mg/dL (0.2-1.0); BLOOD UREA NITROGEN 16 mg/dL (7-18); CALCIUM 8.7 mg/dL (8.5-10.1); CO2 25 mmol/L (21-32); CREATININE 0.8 mg/dL (0.55-1.02); GLUCOSE,RANDOM 265 mg/dL (74-106); MAGNESIUM 1.6 mg/dL (1.8-2.4); SGOT/AST 13 U/L (15-37); SGPT/ALT 17 U/L (12-78)
[2017-06-26] MEDS: HEPARIN NA (PORCINE) 5,000 UNITS/ML 1ML VIAL SQ SCH ×2 (09:13→22:23)
[2017-06-26] MEDS: ASPIRIN COATED 81 MG TABLET.EC PO SCH (09:13)
[2017-06-26 10:54] LABS: CHOLESTEROL 158 mg/dL (50-200); LDL CHOLESTEROL (ONLY SJRH) 76 mg/dL (5-100); TRIGLYCERIDES 85 mg/dL (35-160)
[2017-06-26 10:55] LABS: HDL CHOLESTEROL 67 mg/dL (40-60)
--- NOTE | 2017-06-26 12:50 | PN ---
Progress Note, Physician - Current Medication List Current Medications: Active Medications Aspirin (Ecotrin -) 81 mg PO DAILY [facility] Last Admin: 06/26/17 09:13 Dose: 81 mg Heparin Sodium (Porcine) (Heparin -) 5,000 unit SQ BID [facility] Last Admin: 06/26/17 09:13 Dose: 5,000 unit Sodium Chloride (1/2 Normal Saline) 1,000 mls @ 50 mls/hr IV ASDIR [facility] Stop: 06/26/17 17:41 Last Admin: 06/25/17 21:09 Dose: 50 mls/hr Insulin Aspart (Novolog Vial Sliding Scale -) 1 vial SQ ACHS [facility] PRN Reason: Protocol Last Admin: 06/26/17 11:53 Dose: 10 units Insulin Detemir (Levemir Vial) 5 units SQ HS [facility] Last Admin: 06/25/17 22:24 Dose: 5 units - Objective Vital Signs: Vital Signs Temperature 98.7 F 06/26/17 10:00 Pulse Rate 89 06/26/17 10:00 Respiratory Rate 18 06/26/17 10:00 Blood Pressure 132/67 06/26/17 10:00 O2 Sat by Pulse Oximetry (%) 98 06/25/17 22:00 Labs: CBC, BMP 06/26/17 06:00 06/26/17 06:00 Problem List - Problems (1) Insulin dependent diabetes mellitus Assessment/Plan: No anion gap, + acetone BGMs 500 to 230 after insulin given in ED Start on Novolog SS, Levemir at bedtime Uptitrate Front Counter Attendant consulted by ED Hmga1c Code(s): E11.9 - TYPE 2 DIABETES MELLITUS WITHOUT COMPLICATIONS; Z79.4 - USP (CURRENT) USE OF INSULIN (2) Dehydration with hypernatremia Assessment/Plan: IVF MONITOR LABS Code(s): E87.0 - HYPEROSMOLALITY AND HYPERNATREMIA (3) Acute renal failure Assessment/Plan: IMPROVED MONITOR Code(s): N17.9 - ACUTE KIDNEY FAILURE, UNSPECIFIED Qualifiers: Acute renal failure type: unspecified Qualified Code(s): N17.9 - Acute kidney failure, unspecified (4) History of CVA (cerebrovascular accident) Assessment/Plan: OLD CAV Code(s): Z86.73 - PRSNL HX OF TIA (TIA), AND CEREB INFRC W/O RESID DEFICITS
--- NOTE | 2017-06-26 15:10 | CONSULT ---
Consult Consult Specialty:: Endocrinology coverage for Dr Nath Reason for Consultation:: HYperglycemia - History of Present Illness Chief Complaint: HIgh blood sugar History of Present Illness: This is a 61 year old F with history of HTN on no home meds, T2 DM on Insulin for about 3 years, hyperlipidemia and CVA (left sided residual - walks with a cane) who presented to the ED for hyperglycemia of 545. Has fluctuating blood sugars at home ranging from 60s to 300s. C/O polyuria and polydipsia and Nocturia up to 10 times per night. She reported her blood sugars to be in the 500s at home despite injecting herself with Novolog Flex pen 70/20 12 units before meals and Tresiba 20 units in the morning. She stated that she has been compliant with the home medications but does not count carbs or follow a diabetic diet. Denies any visual symptoms. No paresthesia of feet. Pt found to have blood sugar of 545, and hypernatremia with sodium of 145, then 151 after 1 liter fluid bolus. Acetone negative, anion gap 10, Bun/Cr 24/ 1.6 Pt currently feels better. Hypernatremia resolved and creatinine has normalized. - History Source History Provided By: Patient, Medical Record - Past Medical History RN UROLOGY: Yes: CVA Cardio/Vascular: Yes: HTN Renal/: Yes: Renal Inusuff Psych: Yes: Depression Endocrine: Yes: Diabetes Mellitus - Past Surgical History Past Surgical History: Yes: None - Alcohol/Substance Use Hx Alcohol Use: No History of Substance Use: reports: None - Smoking History Smoking history: Unknown if ever smoked Have you smoked in the past 12 months: No - Social History ADL: Independent Occupation: retired History of Recent Travel: No Home Medications - Allergies Allergies/Adverse Reactions: Allergies Allergy/AdvReac Type Severity Reaction Status Date / Time No Known Allergies Allergy Verified 06/25/17 12:28 - Home Medications Home Medications: Ambulatory Orders Insulin (LOG) Aspart [NovoLOG -] 15 units SQ TIDAC vial 12/21/15 Insulin Aspart [Novolog] 15 unit SQ AC #1 box 06/13/16 Insulin Detemir [Levemir Flextouch] 18 unit SQ HS #1 box 06/13/16 Family Disease History - Family Disease History Family Disease History: Diabetes: Mother (HTN) Review of Systems - Review of Systems Constitutional: reports: No Symptoms Eyes: reports: No Symptoms HENT: reports: No Symptoms Neck: reports: No Symptoms Cardiovascular: reports: No Symptoms Respiratory: reports: No Symptoms Gastrointestinal: reports: No Symptoms Genitourinary: reports: Other (Polyduria, Nocturia up to 10 times at night) Breasts: reports: No Symptoms Reported Musculoskeletal: reports: No Symptoms Neurological: reports: No Symptoms Endocrine: reports: No Symptoms Physical Exam Vital Signs: Vital Signs Temperature 98.7 F 06/26/17 10:00 Pulse Rate 89 06/26/17 10:00 Respiratory Rate 18 06/26/17 10:00 Blood Pressure 132/67 06/26/17 10:00 O2 Sat by Pulse Oximetry (%) 98 06/26/17 09:00 Constitutional: Yes: No Distress, Calm Eyes: Yes: Conjunctiva Clear, EOM Intact HENT: Yes: Atraumatic, Normocephalic Neck: Yes: Supple, Trachea Midline Cardiovascular: Yes: Regular Rate and Rhythm Respiratory: Yes: Regular, CTA Bilaterally Gastrointestinal: Yes: Normal Bowel Sounds, Soft Musculoskeletal: Yes: WNL Extremities: Yes: Other (amputation fo distal phalynx of Rt 2nd to 4th toes.) Edema: No Integumentary: Yes: WNL Neurological: Yes: Alert, Oriented Labs: CBC, BMP 06/26/17 06:00 06/26/17 06:00 Problem List - Problems (1) Dehydration with hypernatremia Code(s): E87.0 - HYPEROSMOLALITY AND HYPERNATREMIA (2) T2DM (type 2 diabetes mellitus) Code(s): E11.9 - TYPE 2 DIABETES MELLITUS WITHOUT COMPLICATIONS Assessment/Plan AP: T2DM with hyperglycemia HYpernatriemia sec Dehydration Increase Levemir to 10 units BID Novolog SS coverage Nutrition Consult CMP in am. Will f/u
[2017-06-26] MEDS ORDERED: POTASSIUM CHLORIDE TABS 20 MEQ TABLET.ER (FP) PO ONE (15:15)
[2017-06-26] MEDS: INSULIN DETEMIR 100 UNITS/ML MDV SQ SCH (22:24)
[2017-06-27] MEDS: INSULIN SLIDING SCALE (NOVOLOG) 1 VIAL SQ SCH ×4 (06:23→21:37)
[2017-06-27] MEDS: INSULIN DETEMIR 100 UNITS/ML MDV SQ SCH ×2 (06:24→21:33)
[2017-06-27 09:00] LABS: ALBUMIN 2.7 g/dl (3.4-5.0); ANION GAP 7 (8-16); BILIRUBIN,TOTAL 0.3 mg/dL (0.2-1.0); BLOOD UREA NITROGEN 13 mg/dL (7-18); CALCIUM 8.5 mg/dL (8.5-10.1); CHLORIDE 110 mmol/L (98-107); CO2 28 mmol/L (21-32); CREATININE 0.8 mg/dL (0.55-1.02); GLUCOSE,RANDOM 235 mg/dL (74-106); POTASSIUM 3.8 mmol/L (3.5-5.1); SGOT/AST 10 U/L (15-37); SGPT/ALT 20 U/L (12-78); SODIUM 145 mmol/L (136-145); TOT PROT 6.5 g/dl (6.4-8.2)
[2017-06-27 09:01] LABS: ALK PHOS 85 U/L (45-117)
[2017-06-27] MEDS: HEPARIN NA (PORCINE) 5,000 UNITS/ML 1ML VIAL SQ SCH ×2 (09:36→21:33)
[2017-06-27] MEDS: ASPIRIN COATED 81 MG TABLET.EC PO SCH (09:36)
[2017-06-27] MEDS ORDERED: INSULIN (NOVOLOG) ASPART 100 UNITS/ML 10ML VIAL ONE (11:29)
--- NOTE | 2017-06-27 13:22 | PN ---
Progress Note, Physician Chief Complaint: CHART AND NOTES REVIEWED C/O BLADDER/PELVIC PAIN - Current Medication List Current Medications: Active Medications Aspirin (Ecotrin -) 81 mg PO DAILY [facility] Last Admin: 06/27/17 09:36 Dose: 81 mg Heparin Sodium (Porcine) (Heparin -) 5,000 unit SQ BID [facility] Last Admin: 06/27/17 09:36 Dose: 5,000 unit Insulin Aspart (Novolog Vial Sliding Scale -) 1 vial SQ TIDAC [facility] PRN Reason: Protocol Last Admin: 06/27/17 11:37 Dose: 10 units Insulin Aspart (Novolog Vial Sliding Scale -) 1 vial SQ HS [facility] PRN Reason: Protocol Last Admin: 06/26/17 22:23 Dose: 10 unit Insulin Detemir (Levemir Vial) 10 units SQ BID@0700,2200 [facility] Last Admin: 06/27/17 06:24 Dose: 10 units Tolterodine Tartrate (Detrol -) 1 mg PO DAILY [facility] - Objective Vital Signs: Vital Signs Temperature 98.5 F 06/27/17 05:00 Pulse Rate 93 H 06/27/17 10:00 Respiratory Rate 06/27/17 10:00 Blood Pressure 135/76 06/27/17 10:00 O2 Sat by Pulse Oximetry (%) 98 06/26/17 21:00 Constitutional: Yes: Mild Distress Eyes: Yes: WNL HENT: Yes: WNL Neck: Yes: WNL Cardiovascular: Yes: WNL Respiratory: Yes: WNL Gastrointestinal: Yes: WNL Genitourinary: Yes: Other Musculoskeletal: Yes: WNL Extremities: Yes: WNL Edema: No Peripheral Pulses WNL: Yes Integumentary: Yes: WNL Wound/Incision: Yes: Clean/Dry Neurological: Yes: WNL ...Motor Strength: WNL Psychiatric: Yes: WNL Labs: CBC, BMP 06/26/17 06:00 06/27/17 06:30 Problem List - Problems (1) Urinary bladder incontinence Code(s): R32 - UNSPECIFIED URINARY INCONTINENCE (2) Dehydration with hypernatremia Code(s): E87.0 - HYPEROSMOLALITY AND HYPERNATREMIA (3) Acute renal failure Code(s): N17.9 - ACUTE KIDNEY FAILURE, UNSPECIFIED Qualifiers: Acute renal failure type: unspecified Qualified Code(s): N17.9 - Acute kidney failure, unspecified (4) Diabetic ketoacidosis Code(s): E13.10 - OTH DIABETES MELLITUS WITH KETOACIDOSIS WITHOUT COMA Qualifiers: Diabetes mellitus type: type 1 Diabetes mellitus complication detail: without coma Qualified Code(s): E10.10 - Type 1 diabetes mellitus with ketoacidosis without coma (5) HTN (hypertension) Code(s): I10 - ESSENTIAL (PRIMARY) HYPERTENSION (6) History of CVA (cerebrovascular accident) Code(s): Z86.73 - PRSNL HX OF TIA (TIA), AND CEREB INFRC W/O RESID DEFICITS Assessment/Plan BGM CONTROL DIETARY AND ENDOCRINE CONSULT BLADDER AND PELVIC SONO AND LEGAL INVESTIGATOR CONSULT
[2017-06-27] MEDS: TOLTERODINE TARTRATE 2 MG TABLET PO SCH (17:22)
--- NOTE | 2017-06-27 21:11 | CON.OBG ---
Consult Consult Specialty:: PARKING ASSISTANT Referred by:: Meghann Limon Reason for Consultation:: Lower abdominal pain - History of Present Illness Chief Complaint: 61yo P2 with lower abdominal pain episodes with urination x 2 months, also noted occasional light spotting when wipes after urination x 2 months. History of Present Illness: Admitted for poorly controlled IDDM with acute renal insufficiency. She reports episodes of urinary frequency and urgency, with dysuria x 2 months. No gross hematuria but noted some spotting when wipes after urination x 2 months. He urine culture and UA on admission were NOT c/w UTI, and no hematuria noted. Pt denies fever, chills, GI issues - History Source History Provided By: Patient, Medical Record Limitations to Obtaining History: Language Barrier (wrapper leaf inspector in Greenlandic was used) - Past Medical History PUBLIC RELATIONS STUDIES DIRECTOR: Yes: CVA Cardio/Vascular: Yes: HTN Pulmonary: No: Asthma, Bronchitis, Cancer, COPD, O2 Dependent, Pneumonia, Previously Intubated, Pulmonary Embolus, Pulmonary Fibrosis, Sleep Apnea, Other Gastrointestinal: No: Ascites, Cancer, Constipation, Crohn's Disease, Diverticulitis, Diverticulosis, Esophageal Varices, Gastritis, GERD, GI Bleed, Hemorrhoids, Hiatal Hernia, Inflamatory Bowel Disease, Irritable Bowel Disease, Pancreatitis, Peptic Ulcer Disease, Ulcerative Colitis, Other Hepatobiliary: No: Cirrhosis, Cholelithiasis, Cholecystitis, Choledocholithiasis , Hepatitis A, Hepatitis B, Hepatitis C, Other Renal/: Yes: Renal Inusuff ...LMP Comment: >20 yrs ago (hysterectomy) ...Para: 2 ( x 2) Heme/Onc: No: Anemia, B12 Deficiency, Bleeding Disorder, Cancer, Current Chemotherapy, Current Radiation Therapy, Hemochromatosis, Hypercoaguable State, Myeloproliferative Synd, Sickle Cell Disease, Sickle Cell Trait, Thrombocytopenia, Other Infectious Disease: No: AIDS, C-Diff, Herpes Zoster, HIV, MRSA, STD's, Tuberculosis, VREF, Other Psych: Yes: Depression Musculoskeletal: Yes: 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) Rheumatology: No: Fibromyalgia, Gout, Lupus, Rheumatoid Arthritis, Sarcoidosis, Vasculitis, Other ENT: No: Allergic Rhinitis, Sinusitis, Other Endocrine: Yes: Diabetes Mellitus Dermatology: No: Basal Cell, Cellulitis, Eczema, Melanoma, Psoriasis, Squamous Cell, Other - Past Surgical History Past Surgical History: Yes: Hysterectomy (and BSO-- for fibroids), Tubal Ligation Additional Surgical History: Lipoma removed form back - Alcohol/Substance Use Hx Alcohol Use: No History of Substance Use: reports: None - Smoking History Smoking history: Unknown if ever smoked Have you smoked in the past 12 months: No - Social History ADL: Independent Occupation: retired History of Recent Travel: No Home Medications - Allergies Allergies/Adverse Reactions: Allergies Allergy/AdvReac Type Severity Reaction Status Date / Time No Known Allergies Allergy Verified 06/25/17 12:28 - Home Medications Home Medications: Ambulatory Orders Insulin (LOG) Aspart [NovoLOG -] 15 units SQ TIDAC vial 12/21/15 Insulin Aspart [Novolog] 15 unit SQ AC #1 box 06/13/16 Insulin Detemir [Levemir Flextouch] 18 unit SQ HS #1 box 06/13/16 Family Disease History - Family Disease History Family Disease History: Diabetes: Mother (HTN) Review of Systems Findings/Remarks: Well appearing, comfortable, communicates easily, poor historian - Review of Systems Constitutional: reports: No Symptoms Eyes: reports: No Symptoms HENT: reports: No Symptoms Neck: reports: No Symptoms Cardiovascular: reports: No Symptoms Respiratory: reports: No Symptoms, SOB (improved) Gastrointestinal: reports: No Symptoms Genitourinary: reports: Burning, Frequency, Incontinence Breasts: reports: No Symptoms Reported Musculoskeletal: reports: No Symptoms Integumentary: reports: No Symptoms Neurological: reports: No Symptoms Endocrine: reports: No Symptoms Hematology/Lymphatic: reports: No Symptoms Psychiatric: reports: No Symptoms Pain Intensity: 0 Physical Exam-PARKING ASSISTANT Vital Signs: Vital Signs Temperature 98.5 F 06/27/17 14:21 Pulse Rate 113 H 06/27/17 14:21 Respiratory Rate 18 06/27/17 14:21 Blood Pressure 119/72 06/27/17 14:21 O2 Sat by Pulse Oximetry (%) 98 06/27/17 09:00 Constitutional: Yes: Well Nourished, No Distress, Calm Eyes: Yes: WNL, Conjunctiva Clear HENT: Yes: WNL Neck: Yes: WNL, Supple Cardiovascular: Yes: Regular Rate and Rhythm, Tachycardia Respiratory: Yes: WNL, Regular, CTA Bilaterally Gastrointestinal: Yes: WNL, Normal Bowel Sounds, Soft, Other (old midline vertical scar from pubis to umbilicus) ...Rectal Exam: Yes: Deferred Renal/: Yes: Other (mild bladder tend) Pelvis: Yes: Bladder Palpable External Genitalia: Yes: Normal (atrophy, no lesions) Internal Exam Deferred: No Vaginal Exam: Yes: Normal (atrophy, no discharge, no lesions; normal cuff, no bleeding) Cervix: Yes: Other (absent) Uterus: Yes: Other (absent) Adnexa: Normal: Left, Right (h/o bilateral oophorectomy, per pt) Musculoskeletal: Yes: WNL Extremities: Yes: WNL Edema: No Integumentary: Yes: WNL, Incision (old, ehaled) Neurological: Yes: WNL, Alert, Oriented Psychiatric: Yes: WNL, Alert, Oriented Labs: CBC, BMP 06/26/17 06:00 06/27/17 06:30 Assessment/Plan 61yo with lower abdominal pain, urinary frequency, dysuria, incontinence. Patient is s/p LISA/BSO and has an otherwise normal PARKING ASSISTANT exam. The pelvic US did not reveal pathology. UA and urine cx were negative for UTI or heme. I suggest evaluation. The pt was also advised to see me in the office after discharge.
[2017-06-28] MEDS: INSULIN DETEMIR 100 UNITS/ML MDV SQ SCH (06:53)
[2017-06-28] MEDS: INSULIN SLIDING SCALE (NOVOLOG) 1 VIAL SQ SCH ×2 (06:53→12:23)
[2017-06-28] MEDS ORDERED: INSULIN (NOVOLOG) ASPART 100 UNITS/ML 10ML VIAL ONE ×2 (07:03→12:14)
--- NOTE | 2017-06-28 08:15 | CON.GU ---
Consult Consult Specialty:: urology Referred by:: Braxton Reason for Consultation:: dysuria - History of Present Illness Chief Complaint: urinary frequency and dysuria History of Present Illness: Patient is a 61 year old female with history of urinary frequency and urgency with severe dysuria. Patient is a poorly controlled diabetic. Patient states that she does not have recurrent uti's or gross hematuria. Patient has had a LISA/BSO. 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 CRUSHER: Yes: CVA Cardio/Vascular: Yes: HTN Pulmonary: No: Asthma, Bronchitis, Cancer, COPD, O2 Dependent, Pneumonia, Previously Intubated, Pulmonary Embolus, Pulmonary Fibrosis, Sleep Apnea, Other Gastrointestinal: No: Ascites, Cancer, Constipation, Crohn's Disease, Diverticulitis, Diverticulosis, Esophageal Varices, Gastritis, GERD, GI Bleed, Hemorrhoids, Hiatal Hernia, Inflamatory Bowel Disease, Irritable Bowel Disease, Pancreatitis, Peptic Ulcer Disease, Ulcerative Colitis, Other Hepatobiliary: No: Cirrhosis, Cholelithiasis, Cholecystitis, Choledocholithiasis , Hepatitis A, Hepatitis B, Hepatitis C, Other Renal/: Yes: Renal Inusuff ...LMP Comment: >20 yrs ago (hysterectomy) Infectious Disease: No: AIDS, C-Diff, Herpes Zoster, HIV, MRSA, STD's, Tuberculosis, VREF, Other Psych: Yes: Depression Musculoskeletal: Yes: 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) Rheumatology: No: Fibromyalgia, Gout, Lupus, Rheumatoid Arthritis, Sarcoidosis, Vasculitis, Other ENT: No: Allergic Rhinitis, Sinusitis, Other Endocrine: Yes: Diabetes Mellitus Dermatology: No: Basal Cell, Cellulitis, Eczema, Melanoma, Psoriasis, Squamous Cell, Other - Past Surgical History Past Surgical History: Yes: Hysterectomy (and BSO-- for fibroids), Tubal Ligation Additional Surgical History: Lipoma removed form back - Alcohol/Substance Use Hx Alcohol Use: No History of Substance Use: reports: None - Smoking History Smoking history: Unknown if ever smoked Have you smoked in the past 12 months: No - Social History ADL: Independent Occupation: retired History of Recent Travel: No Home Medications - Allergies Allergies/Adverse Reactions: Allergies Allergy/AdvReac Type Severity Reaction Status Date / Time No Known Allergies Allergy Verified 06/25/17 12:28 - Home Medications Home Medications: Ambulatory Orders Insulin (LOG) Aspart [NovoLOG -] 15 units SQ TIDAC vial 12/21/15 Insulin Aspart [Novolog] 15 unit SQ AC #1 box 06/13/16 Insulin Detemir [Levemir Flextouch] 18 unit SQ HS #1 box 06/13/16 Family Disease History - Family Disease History Family Disease History: Diabetes: Mother (HTN) Physical Exam- Vital Signs: Vital Signs Temperature 98.3 F 06/28/17 06:00 Pulse Rate 82 06/28/17 06:00 Respiratory Rate 18 06/28/17 06:00 Blood Pressure 148/88 06/28/17 06:00 O2 Sat by Pulse Oximetry (%) 97 06/27/17 21:00 Constitutional: Yes: Well Nourished, No Distress, Calm Eyes: Yes: WNL, Conjunctiva Clear, EOM Intact HENT: Yes: WNL, Atraumatic, Normocephalic Neck: Yes: WNL, Supple, Trachea Midline Cardiovascular: Yes: Regular Rate and Rhythm Respiratory: Yes: WNL, Regular Gastrointestinal: Yes: WNL, Normal Bowel Sounds, Soft Renal/: Yes: WNL Kidneys: Yes: WNL Pelvis: Yes: Bladder Non Palpable External Genitalia: Yes: WNL Labs: CBC, BMP 06/26/17 06:00 06/27/17 06:30 Imaging - Results Ultrasound: Report Reviewed Assessment/Plan Impression microscopic hematuria neurogenic bladder plan will schedule cystoscopy as outpatient
[2017-06-28] MEDS: ASPIRIN COATED 81 MG TABLET.EC PO SCH (10:13)
[2017-06-28] MEDS: TOLTERODINE TARTRATE 2 MG TABLET PO SCH (10:13)
[2017-06-28] MEDS: HEPARIN NA (PORCINE) 5,000 UNITS/ML 1ML VIAL SQ SCH (10:13)
--- NOTE | 2017-06-28 11:10 | DS ---
Physical Examination Vital Signs: Vital Signs Temperature 98.3 F 06/28/17 06:00 Pulse Rate 82 06/28/17 06:00 Respiratory Rate 18 06/28/17 06:00 Blood Pressure 148/88 06/28/17 06:00 O2 Sat by Pulse Oximetry (%) 97 06/27/17 21:00 Constitutional: Yes: No Distress Eyes: Yes: WNL HENT: Yes: WNL Neck: Yes: WNL Cardiovascular: Yes: WNL Respiratory: Yes: WNL Gastrointestinal: Yes: WNL Musculoskeletal: Yes: WNL Edema: No Peripheral Pulses WNL: Yes Integumentary: Yes: WNL Wound/Incision: Yes: Clean/Dry Neurological: Yes: WNL ...Motor Strength: WNL Psychiatric: Yes: WNL Labs: CBC, BMP 06/26/17 06:00 06/27/17 06:30 Discharge Summary Reason For Visit: HYPEROSMLALITY WITH HYPONATREMIA Current Active Problems Dehydration with hypernatremia (Acute) Urinary bladder incontinence (Acute) Procedures: Principal: [facility] Hospital Course: TREATED IV ABX, AND SAP BASIS CONSULTANT EVALS, IVF, HYPERGLYCEMIA CONTROLLED Condition: Stable - Instructions Diet, Activity, Other Instructions: LOW SODIUM AND ADA Referrals: Darion Morales [Primary Care Provider] - Disposition: VNS/HOME HEALTH CARE - Home Medications Comprehensive Discharge Medication List: Ambulatory Orders Insulin (LOG) Aspart [NovoLOG -] 15 units SQ TIDAC vial 12/21/15 Insulin Aspart [Novolog Flexpen] 15 unit SQ AC #1 box 06/13/16 Insulin Detemir [Levemir Flextouch] 18 unit SQ HS #1 box 06/13/16 Aspirin Coated [Ecotrin -] 81 mg PO DAILY tablet.ec 06/28/17 Tolterodine Tartrate [Detrol -] 1 mg PO DAILY #60 tablet 06/28/17
[2017-06-28 15:46] VITALS: BP 140/79; PULSE 93; TEMP 98.5
== END 2017-06-28 16:37 | disposition home or self-care (01) | DRG 460 ==
LOC: JER 12:14 → JERBED 17:46 → J5S 20:46
PROVIDERS: ADMIT Internal Medicine; ATTEND Family Medicine
DX: N17.9 Acute kidney failure, unspecified (principal); E87.0 Hyperosmolality and hypernatremia; E86.0 Dehydration; E13.10 Other specified diabetes mellitus with ketoacidosis without coma; E11.65 Type 2 diabetes mellitus with hyperglycemia; I10 Essential (primary) hypertension; E78.5 Hyperlipidemia, unspecified; E87.5 Hyperkalemia; R35.0 Frequency of micturition; R63.1 Polydipsia; R35.8 Other polyuria; N31.9 Neuromuscular dysfunction of bladder, unspecified; I69.354 Hemiplegia and hemiparesis following cerebral infarction affecting left non-dominant side; F41.8 Other specified anxiety disorders; R31.9 Hematuria, unspecified; R32 Unspecified urinary incontinence; R00.0 Tachycardia, unspecified; Z91.14 Patient's other noncompliance with medication regimen; Z79.4 Long term (current) use of insulin; Z89.421 Acquired absence of other right toe(s)
CPT/HCPCS: 36415; 76856-TC; 80053; 80061; 81003; 81015; 82009; 82550; 83036; 83721; 83735; 84484; 85025; 85027; 87086; 93005; 93010; 93970-TC; 99284-25; J1644

== ENCOUNTER 2017-07-31 19:27 | Emergency (ER) | payer OTHER ==
[2017-07-31 20:03] VITALS: BP 120/68; PULSE 92; TEMP 99.2; BMI 24.9
[2017-07-31] MEDS ORDERED: SODIUM CHLORIDE 1,000 ML IV STA (20:06)
--- NOTE | 2017-07-31 20:07 | PDOC ---
Rapid Medical Evaluation Time Seen by Provider: 07/31/17 20:02 Medical Evaluation: Allergies Allergy/AdvReac Type Severity Reaction Status Date / Time No Known Allergies Allergy Verified 06/25/17 12:28 07/31/17 20:02 The patient presents with a chief complaint of: Fatigue. Daughters are reporting "High" readings on her BGM's for the past 4 days. Also admits to sore throat. Denies fevers, chills, abdominal pain I have performed a brief in-person evaluation of this patient; Pertinent physical exam findings: ambulatory, in no respiratory distress. CTAB, VSS, Afebrile I have ordered the following: CBC, CMP, Acetone, UA, Lipase, EKG, throat swab The patient will proceed to the ED for further evaluation.
[2017-07-31 20:30] LABS: BASO % 0.8 % (0-2.0); EOS % 0.7 % (0-4.5); HEMATOCRIT 37.2 % (32.4-45.2); HEMOGLOBIN 12.3 GM/dL (10.7-15.3); LYMPH % 26.7 % (8-40); MCH 29.3 pg (25.7-33.7); MEAN PLT VOLUME 11.3 fl (7.5-11.1); MONO % 7.1 % (3.8-10.2); NEUT % 64.7 % (42.8-82.8); PLATELET COUNT 144 K/MM3 (134-434); RBC 4.18 M/mm3 (3.60-5.2); RDW 14.7 % (11.6-15.6); WHITE BLOOD COUNT 5.7 K/mm3 (4.0-10.0)
[2017-07-31 20:34] LABS: URINE APPEARANCE CLEAR; URINE BILIRUBIN NEGATIVE (NEGATIVE); URINE BLOOD NEGATIVE (NEGATIVE); URINE COLOR COLORLESS; URINE GLUCOSE (UA) 3+ (NEGATIVE); URINE KETONE NEGATIVE (NEGATIVE); URINE LEUK ESTERASE NEGATIVE (NEGATIVE); URINE NITRITE NEGATIVE (NEGATIVE); URINE PROTEIN NEGATIVE (NEGATIVE); URINE UROBILINOGEN NEGATIVE mg/dL (0.2-1.0)
[2017-07-31 20:56] LABS: INR 0.88 (0.82-1.09); PROTHROMBIN TIME (PATIENT) 9.9 SEC (9.98-11.88)
[2017-07-31 21:06] LABS: ALBUMIN 3.2 g/dl (3.4-5.0); ALK PHOS 102 U/L (45-117); ANION GAP 6 (8-16); BILIRUBIN,TOTAL 0.4 mg/dL (0.2-1.0); BLOOD UREA NITROGEN 23 mg/dL (7-18); CALCIUM 8.6 mg/dL (8.5-10.1); CHLORIDE 104 mmol/L (98-107); CO2 28 mmol/L (21-32); CREATININE 1.2 mg/dL (0.55-1.02); POTASSIUM 4.5 mmol/L (3.5-5.1); SGOT/AST 16 U/L (15-37); SGPT/ALT 32 U/L (12-78); SODIUM 138 mmol/L (136-145); TOT PROT 7.3 g/dl (6.4-8.2)
[2017-07-31 21:10] LABS: GLUCOSE,RANDOM 488 mg/dL (74-106)
--- NOTE | 2017-07-31 21:10 | PDOC ---
History of Present Illness - General Chief Complaint: Blood Sugar Problem Stated Complaint: FATIGUE Time Seen by Provider: 07/31/17 20:02 - History of Present Illness Initial Comments: 07/31/17 21:18 21-year-old female with history of insulin-dependent diabetes complaining of fatigue, high blood sugar, polydipsia and polyuria for 5 days. Patient is complaining of weakness. Denies fever chills, nausea vomiting diarrhea, abdominal pain. Past History - Past Medical History Allergies/Adverse Reactions: Allergies Allergy/AdvReac Type Severity Reaction Status Date / Time No Known Allergies Allergy Verified 07/31/17 20:03 Home Medications: Ambulatory Orders Insulin (LOG) Aspart [NovoLOG -] 15 units SQ TIDAC vial 12/21/15 Insulin Aspart [Novolog Flexpen] 15 unit SQ AC #1 box 06/13/16 Insulin Detemir [Levemir Flextouch] 18 unit SQ HS #1 box 06/13/16 Aspirin Coated [Ecotrin -] 81 mg PO DAILY tablet.ec 06/28/17 Tolterodine Tartrate [Detrol -] 1 mg PO DAILY #60 tablet 06/28/17 Asthma: No CVA: Yes COPD: No Diabetes: Yes HTN: Yes Psychiatric Problems: Yes (Depression) Thyroid Disease: No - Immunization History Immunization Up to Date: No - Suicide/Smoking/Psychosocial Hx Smoking History: Never smoked Have you smoked in the past 12 months: No Hx Alcohol Use: No Drug/Substance Use Hx: No Substance Use Type: None Hx Substance Use Treatment: No Review of Systems - Review of Systems Able to Perform ROS?: Yes Is the patient limited Korean proficient: No Constitutional: Yes: Weakness, Other (fatigue) HEENTM: No: Symptoms Reported, See HPI, Eye Pain, Blurred Vision, Tearing, Recent change in vision, Double Vision, Cataracts, Ear Pain, Ocular Prothesis, Ear Discharge, Nose Pain, Nose Congestion, Tinnitus, Nose Bleeding, Hearing Loss , Throat Pain, Throat Swelling, Mouth Pain, Dental Problems, Difficulty Swallowing, Mouth Swelling, Other ABD/GI: No: Symptoms Reported, See HPI, Abdominal Distended, Abd. Pain w/ defecation, Blood Streaked Bowels, Constipated, Diarrhea, Difficulty Swallowing , Nausea, Poor Appetite, Poor Fluid Intake, Rectal Bleeding, Vomiting, Indigestion, Abdominal cramping, Tarry Stools, Other : Yes: Frequency *Physical Exam - Vital Signs Last Vital Signs Temp Pulse Resp BP Pulse Ox 99.2 F 92 H 20 120/68 99 07/31/17 19:50 07/31/17 19:50 07/31/17 19:50 07/31/17 19:50 07/31/17 19:50 - Physical Exam General Appearance: Yes: Appropriately Dressed Respiratory/Chest: positive: Lungs Clear, Normal Breath Sounds Cardiovascular: positive: Regular Rhythm, Regular Rate Gastrointestinal/Abdominal: positive: Normal Bowel Sounds, Soft Extremity: positive: Normal Capillary Refill, Normal Inspection, Normal Range of Motion Integumentary: positive: Normal Color, Dry, Warm Neurologic: positive: Fully Oriented, Alert, Normal Mood/Affect ED Treatment Course - LABORATORY CBC & Chemistry Diagram: 07/31/17 20:18 07/31/17 20:18 - ADDITIONAL ORDERS Additional order review: Laboratory Results 07/31/17 07/31/17 07/31/17 20:28 20:18 20:18 PT with INR 9.90 L INR 0.88 Lipase 282 Urine Color Colorless Urine Appearance Clear Urine pH 6.0 Ur Specific [place] 1.021 Urine Protein Negative Urine Glucose (UA) 3+ H Urine Ketones Negative Urine Blood Negative Urine Nitrite Negative Urine Bilirubin Negative Urine Urobilinogen Negative Ur Leukocyte Esterase Negative 07/31/17 20:18 RBC 4.18 MCV 89.0 MCHC 33.0 RDW 14.7 MPV 11.3 H Neutrophils % 64.7 D Lymphocytes % 26.7 D Monocytes % 7.1 Eosinophils % 0.7 D Basophils % 0.8 Medical Decision Making - Medical Decision Making 08/01/17 00:09 repeat BGM 310. patient is eating turkey sandwich., will cover for meal with regular insulin. 08/01/17 00:09 *DC/Admit/Observation/Transfer Diagnosis at time of Disposition: Hyperglycemia - Discharge Dispostion Disposition: HOME - Referrals Referrals: Darion Morales [Primary Care Provider] - - Patient Instructions Printed Discharge Instructions: DI for Hyperglycemia -- Adult Additional Instructions: continue insulin as prescribed by your doctor. follow up with your doctor as soon as possible. check your sugar before meals and after meals. return to the ED if symptoms worsen. - Post Discharge Activity
[2017-07-31 22:13] LABS: VENOUS PC02 55.6 mmHg (38-52); VENOUS PH 7.36 (7.32-7.42)
[2017-07-31] MEDS ORDERED: SODIUM CHLORIDE 500 ML IV STA (22:58)
[2017-08-01] MEDS ORDERED: INSULIN REGULAR HUMAN 100 UNITS/ML *VIAL IVPUSH ONE (00:04)
[2017-08-01] MEDS ORDERED: INSULIN REGULAR HUMAN 100 UNITS/ML *VIAL SQ ONE (01:07)
[2017-08-01] MEDS ORDERED: INSULIN REGULAR HUMAN 100 UNITS/ML *VIAL ONE (01:09)
--- NOTE | 2017-08-02 10:27 | EKG ---
Test Reason : Blood Pressure : / mmHG Vent. Rate : 089 BPM Atrial Rate : 089 BPM P-R Int : 158 ms QRS Dur : 078 ms QT Int : 346 ms P-R-T Axes : 058 027 045 degrees QTc Int : 420 ms NORMAL SINUS RHYTHM POSSIBLE LEFT ATRIAL ENLARGEMENT POSSIBLE ANTERIOR INFARCT , AGE UNDETERMINED ABNORMAL ECG WHEN COMPARED WITH ECG OF 25-JUN-2017 12:31, CRITERIA FOR INFERIOR INFARCT ARE NO LONGER PRESENT T WAVE INVERSION NO LONGER EVIDENT IN LATERAL LEADS Confirmed by MITCHELL FOSTER MD ([id number]) on 08/02/2017 10:26:31 AM Referred By: Confirmed By:MITCHELL FOSTER MD
== END 2017-08-01 03:11 | disposition home or self-care (01) ==
LOC: JER 19:27
PROC: 3E0337Z Introduction of Electrolytic and Water Balance Substance into Peripheral Vein, Percutaneous Approach (ICD-10-PCS; principal; 2017-07-31)
PROC: 3E033VG Introduction of Insulin into Peripheral Vein, Percutaneous Approach (ICD-10-PCS; 2017-07-31)
DX: E11.65 Type 2 diabetes mellitus with hyperglycemia (principal); Z79.4 Long term (current) use of insulin; I10 Essential (primary) hypertension; F32.9 Major depressive disorder, single episode, unspecified; Z86.73 Personal history of transient ischemic attack (TIA), and cerebral infarction without residual deficits
CPT/HCPCS: 36415; 80053; 81003; 82803; 82962; 83605; 83690; 85025; 85610; 93005; 93010; 96361; 96374; 99284-25

== ENCOUNTER 2017-11-01 16:01 | Emergency (ER) | payer OTHER ==
--- NOTE | 2017-11-01 16:18 | PDOC ---
Rapid Medical Evaluation Time Seen by Provider: 11/01/17 16:17 Medical Evaluation: Allergies Allergy/AdvReac Type Severity Reaction Status Date / Time No Known Allergies Allergy Verified 11/01/17 16:17 11/01/17 16:17 I have performed a brief in-person evaluation of this patient. The patient presents with a chief complaint of: Hyperglycemia x 3 days (machine reads "HI"). C/o dizziness w/ weakness and polyuria. H/o IDDM, HTN, HLD and CVA. Pertinent physical exam findings:Stable w/ unremarkable exam I have ordered the following:labs The patient will proceed to the ED for further evaluation. 11/01/17 16:18 Discharge Disposition - Diagnosis Hyperglycemia - Referrals - Patient Instructions - Post Discharge Activity
[2017-11-01 16:22] VITALS: BP 119/74; PULSE 86; TEMP 98.2; BMI 21.6
[2017-11-01 17:18] LABS: BASO % 0.3 % (0-2.0); EOS % 0.5 % (0-4.5); HEMATOCRIT 39.9 % (32.4-45.2); HEMOGLOBIN 12.8 GM/dL (10.7-15.3); LYMPH % 16.5 % (8-40); MCH 30.4 pg (25.7-33.7); MCHC 32.1 g/dl (32.0-36.0); MEAN CELL VOLUME 94.9 fl (80-96); MEAN PLT VOLUME 11.5 fl (7.5-11.1); MONO % 5.1 % (3.8-10.2); NEUT % 77.6 % (42.8-82.8); PLATELET COUNT 154 K/MM3 (134-434); RBC 4.21 M/mm3 (3.60-5.2); RDW 14.8 % (11.6-15.6); WHITE BLOOD COUNT 6.2 K/mm3 (4.0-10.0)
[2017-11-01 17:19] LABS: ALBUMIN 3.4 g/dl (3.4-5.0); ANION GAP 10 (8-16); BILIRUBIN,TOTAL 0.2 mg/dL (0.2-1.0); BLOOD UREA NITROGEN 23 mg/dL (7-18); CALCIUM 9.6 mg/dL (8.5-10.1); CHLORIDE 100 mmol/L (98-107); CO2 27 mmol/L (21-32); CREATININE 1.5 mg/dL (0.55-1.02); POTASSIUM 5.1 mmol/L (3.5-5.1); SGOT/AST 19 U/L (15-37); SGPT/ALT 25 U/L (12-78); SODIUM 137 mmol/L (136-145); TOT PROT 7.9 g/dl (6.4-8.2)
[2017-11-01 17:28] LABS: ALK PHOS 98 U/L (45-117)
--- NOTE | 2017-11-01 17:48 | PDOC ---
History of Present Illness - General Chief Complaint: Blood Sugar Problem Stated Complaint: BLOOD SUGAR PROBLEM Time Seen by Provider: 11/01/17 16:17 - History of Present Illness Initial Comments: Patient is a 61 year old female, with a significant past medical history hypertension (on no home meds), insulin-dependent diabetes (non compliance reported), hyperlipidemia and CVA (left sided residual - walks with a cane), who presents to the emergency department complaining of elevated blood sugars at home and polyuria, polydypsia for last 2 weeks. Pt states that she has noted elevated BGMs 300-400s over the last three days. States she is normally very compliant with insulin and checks her sugars regularly. Pt denies any recent diet changes. Endorses increased urination and PO hydration for last two weeks. She also endorses 2-3 days of intermittent dizziness while ambulating. Denies chest pain, shortness of breath, headache. Denies fever, chills, nausea, vomiting, diarrhea, melena and constipation. Denies dysuria, urgency and hematuria. Allergies: None Past surgical history: none Social History: No smoking, alcohol, drug use PMD: Dr. Morales 11/01/17 17:42 Past History - Past Medical History Allergies/Adverse Reactions: Allergies Allergy/AdvReac Type Severity Reaction Status Date / Time No Known Allergies Allergy Verified 11/01/17 16:17 Home Medications: Ambulatory Orders Aspirin Coated [Ecotrin -] 81 mg PO DAILY tablet.ec 06/28/17 Tolterodine Tartrate [Detrol -] 1 mg PO DAILY #60 tablet 06/28/17 Insulin Aspart [Novolog Flexpen] 20 unit SQ AC 11/01/17 Insulin Detemir [Levemir Flextouch] 30 unit SQ AM 11/01/17 Asthma: No CVA: Yes COPD: No Diabetes: Yes HTN: Yes Psychiatric Problems: Yes (Depression) Thyroid Disease: No - Immunization History Immunization Up to Date: No - Suicide/Smoking/Psychosocial Hx Smoking History: Never smoked Have you smoked in the past 12 months: No Hx Alcohol Use: No Drug/Substance Use Hx: No Substance Use Type: None Hx Substance Use Treatment: No Review of Systems - Review of Systems Comments:: GENERAL/CONSTITUTIONAL: + dizziness. No fever or chills. No weakness. HEAD, EYES, EARS, NOSE AND THROAT: No change in vision. No ear pain or discharge. No sore throat. CARDIOVASCULAR: No chest pain or shortness of breath RESPIRATORY: No cough, wheezing, or hemoptysis. GASTROINTESTINAL: No nausea, vomiting, diarrhea or constipation. GENITOURINARY: Polyuria, No dysuria, or change in urination. MUSCULOSKELETAL: No joint or muscle swelling or pain. No neck or back pain. SKIN: No rash NEUROLOGIC: No headache, vertigo, loss of consciousness, or change in strength/ sensation. ENDOCRINE: +Polydipsia. No abnormal weight change HEMATOLOGIC/LYMPHATIC: No anemia, easy bleeding, or history of blood clots. ALLERGIC/IMMUNOLOGIC: No hives or skin allergy. 11/01/17 17:43 *Physical Exam - Vital Signs Last Vital Signs Temp Pulse Resp BP Pulse Ox 98.2 F 86 19 119/74 100 11/01/17 16:17 11/01/17 16:17 11/01/17 16:17 11/01/17 16:17 11/01/17 16:17 - Physical Exam Comments: GENERAL: Elderly woman, A&Ox3, in no acute distress HEAD: No signs of trauma, normocephalic, atraumatic EYES: PERRLA, EOMI, sclera anicteric, conjunctiva clear ENT: Oropharynx dry. Auricles normal inspection, hearing grossly normal, nares patent, oropharynx clear without exudates. NECK: Normal ROM, supple, no lymphadenopathy, JVD, or masses LUNGS: No distress, speaks full sentences, clear to auscultation bilaterally HEART: Regular rate and rhythm, normal S1 and S2, no murmurs, rubs or gallops, peripheral pulses normal and equal bilaterally. ABDOMEN: Soft, nontender, normoactive bowel sounds. No guarding, no rebound. No masses EXTREMITIES : Normal inspection, Normal range of motion, no edema. No clubbing or cyanosis. NEUROLOGICAL: Cranial nerves II through XII grossly intact. Normal speech, normal gait, no focal sensorimotor deficits SKIN: Warm, Dry, normal turgor, no rashes or lesions noted 11/01/17 17:43 Heart Score/ECG Review - Electrocardiogram EKG: Normal - Age Age: 45-65 - Risk Factors Risk Factors Heart Score: Yes Hx Hypertension - ECG Intrepretation Rhythm: Regular Rhythm - [place]: Normal - P and ID Delta Wave(s) Present: No - QRS Poor R Wave Progression: No - ST and T Early Repolarization: No Non Specific ST-T Wave changes: No Flattened T Waves: No - ECG Impressions Normal ECG: Yes Non-specific ST Elevation: No Ischemic Changes: No ED Treatment Course - LABORATORY CBC & Chemistry Diagram: 11/01/17 16:41 11/01/17 20:34 - ADDITIONAL ORDERS Additional order review: 11/01/17 16:41 RBC 4.21 MCV 94.9 MCHC 32.1 RDW 14.8 MPV 11.5 H Neutrophils % 77.6 Lymphocytes % 16.5 D Monocytes % 5.1 Eosinophils % 0.5 Basophils % 0.3 Medical Decision Making - Medical Decision Making 61 year old female, with a significant past medical history hypertension (on no home meds), insulin-dependent diabetes (non compliance reported), hyperlipidemia and CVA (left sided residual - walks with a cane), who presents to the emergency department complaining of elevated blood sugars at home and polyuria, polydypsia for last 2 weeks. Labs notable for BGM in 900s, Na 150 corrected. Pt received 1L NS bolus on admission, ordered for another 1L after evaluation. UA ordered. Pt refused to stay overnight, states she has workers coming to her house tomorrow and needs to leave. Will likely AMA after receiving IV fluids. 11/01/17 18:21 Pt repeat BGM in 280~ after receiving 2L NS. Na 147 on repeat BMP. Pt with decision to leave AMA, as she has contractors coming to work on her house in AM. Pt counseled on need for frequent BGM checks at home, insulin compliance and diet restrictions. Verbalized understanding of risks of leave AMA. VSS, no pain, BG, Na and Cr improved on repeat BMP. 11/01/17 22:41 *DC/Admit/Observation/Transfer Diagnosis at time of Disposition: Hyperglycemia, Hyperglycemia due to type 2 diabetes mellitus - Discharge Dispostion Disposition: AGAINST MEDICAL ADVICE Condition at time of disposition: Unchanged/Unknown - Referrals Referrals: Jose Nath MD [Staff Physician] - Makeda Stephens MD [Primary Care Provider] - 1 week - Patient Instructions Printed Discharge Instructions: DI for Hyperglycemia -- Adult Additional Instructions: Please call your doctor tomorrow to arrange for follow up. Please make an appointment to see the stretching machine tender frame. Please return to the ED immediately if your symptoms worsen. Please drink plenty of water and check your glucose before meals. - Post Discharge Activity
[2017-11-01 17:52] LABS: GLUCOSE,RANDOM 961 mg/dL (74-106)
[2017-11-01] MEDS ORDERED: SODIUM CHLORIDE 0.9% 1000 ML INFUS.BAG IV ONE (17:52)
[2017-11-01] MEDS ORDERED: SODIUM CHLORIDE 1,000 ML IV STA (18:00)
--- NOTE | 2017-11-01 18:16 | PDOC ---
Attending Attestation - HPI HPI: 11/01/17 18:37 The patient is a 61 year old female with past medical history of hypertension, IDDM, hyperlipidemia, and CVA who presents to the ED with elevated blood sugar levels for the past two weeks. She reports her sugars have been running in the 300-400s. The patient reports associated increased urination as well. She denies any changes in her medications and no recent infections. Denies any other cough, SOB, chest pain, nausea, vomiting, diarrhea, or other urinary symptoms. - Physicial Exam PE: 11/01/17 18:37 GENERAL: Awake, alert, and fully oriented, in no acute distress HEAD: No signs of trauma EYES: PERRLA, EOMI, sclera anicteric, conjunctiva clear ENT: Auricles normal inspection, hearing grossly normal, nares patent, oropharynx clear without exudates. Dry mucous membranes, dry tongue. NECK: Normal ROM, supple, no lymphadenopathy, JVD, or masses LUNGS: Breath sounds equal, clear to auscultation bilaterally. No wheezes, and no crackles HEART: Regular rate and rhythm, normal S1 and S2, no murmurs, rubs or gallops ABDOMEN: Soft, nontender, normoactive bowel sounds. No guarding, no rebound. No masses EXTREMITIES: Normal range of motion, no edema. No clubbing or cyanosis. No cords, erythema, or tenderness NEUROLOGICAL: Cranial nerves II through XII grossly intact. Normal speech, normal gait SKIN: Warm, Dry, normal turgor, no rashes or lesions noted. - Medical Decision Making 11/01/17 18:37 Documentation prepared by Adriana Beckman, acting as emergency medical service manager for Dafne Moeller DO. <Adriana Beckman - Last Filed: 11/01/17 18:37> - Resident Resident Name: Cody Escobar - ED Attending Attestation I have performed the following: I have examined & evaluated the patient, The case was reviewed & discussed with the resident, I agree w/resident's findings & plan, Exceptions are as noted - Medical Decision Making 11/01/17 18:16 I, Dr. Dafne Moeller DO, attest that this document has been prepared under my direction and personally reviewed by me in its entirety. I further attest, that it accurately reflects all work, treatment, procedures and medical decision -making performed by me. 11/01/17 22:27 61yo female with elevated bg at home -states she checks her glucose daily and it was low a few days ago and then running >400 today -c/0 urinating freq, but denies dysuria -no f/c -no cp/sob/abd pain/n/v/d no recent infections -will check labs, vbg, acetone will give ivf hydration 11/01/17 22:31 glucose >900 pt gave herself novolog 11/01/17 22:31 repeat glucose improved on finger stick will send BMP 11/01/17 22:32 pt states she needs to go home she has a workman coming to replace windows tomorrow given 2L IVF hydration in the ED denies all complaints at this time states she wants to sign out AMA 11/01/17 22:33 Note: The patient insists on leaving the emergency dept and is signing out against medical advice. The patient understands the risks and complications that may result from the refusal of medical care and admission which includes and permanent disability. The patient has the mental capacity of understanding the risks of refusing care and is capable of making an informed decision. The patient was instructed to return to the emergency department should she change her mind regarding medical care or should her condition worsen. The patient signed the Against Medical Advice form. <Dafne Moeller - Last Filed: 11/01/17 22:35> Discharge Disposition - Discharge Dispostion Last Admission D/C Date: 06/28/17 Decision to Admit order: No <Dafne Moeller - Last Filed: 11/01/17 22:35> - Diagnosis Hyperglycemia - Discharge Dispostion Disposition: AGAINST MEDICAL ADVICE Condition at time of disposition: Unchanged/Unknown - Referrals Referrals: Makeda Stephens MD [Primary Care Provider] - 1 week Jose Nath MD [Staff Physician] - - Patient Instructions Printed Discharge Instructions: DI for Hyperglycemia -- Adult Additional Instructions: Please call your doctor tomorrow to arrange for follow up. Please make an appointment to see the acetylene burner. Please return to the ED immediately if your symptoms worsen. Please drink plenty of water and check your glucose before meals. - Post Discharge Activity
[2017-11-01 18:36] LABS: VENOUS PC02 55.5 mmHg (38-52); VENOUS PH 7.33 (7.32-7.42); VENOUS PO2 35.4 mmHg (28-48)
[2017-11-01 19:11] LABS: URINE APPEARANCE CLEAR; URINE BILIRUBIN NEGATIVE (<2.0 mg/dL); URINE COLOR COLORLESS; URINE GLUCOSE (UA) 3+ (NEGATIVE); URINE KETONE NEGATIVE (NEGATIVE); URINE LEUK ESTERASE NEGATIVE (NEGATIVE); URINE NITRITE NEGATIVE (NEGATIVE); URINE PROTEIN NEGATIVE (NEGATIVE); URINE UROBILINOGEN NEGATIVE mg/dL (0.2-1.0)
[2017-11-01 21:26] LABS: ANION GAP 9 (8-16); BLOOD UREA NITROGEN 20 mg/dL (7-18); CALCIUM 8.8 mg/dL (8.5-10.1); CHLORIDE 113 mmol/L (98-107); CO2 25 mmol/L (21-32); CREATININE 1.1 mg/dL (0.55-1.02); GLUCOSE,RANDOM 283 mg/dL (74-106); SODIUM 147 mmol/L (136-145)
[2017-11-01 21:54] LABS: POTASSIUM 4.1 mmol/L (3.5-5.1)
--- NOTE | 2017-11-02 11:45 | EKG ---
Test Reason : Blood Pressure : / mmHG Vent. Rate : 091 BPM Atrial Rate : 091 BPM P-R Int : 160 ms QRS Dur : 084 ms QT Int : 348 ms P-R-T Axes : 061 023 050 degrees QTc Int : 428 ms NORMAL SINUS RHYTHM POSSIBLE ANTERIOR INFARCT (CITED ON OR BEFORE 31-JUL-2017) ABNORMAL ECG WHEN COMPARED WITH ECG OF 31-JUL-2017 21:39, NO SIGNIFICANT CHANGE WAS FOUND Confirmed by EMANUEL PIERSON, PATRICIO ([id number]) on 11/02/2017 11:44:34 AM Referred By: Confirmed By:PATRICIO CATSELLANOS MD
== END 2017-11-01 22:56 | disposition left against medical advice (07) ==
LOC: JER 16:01
PROC: 3E0337Z Introduction of Electrolytic and Water Balance Substance into Peripheral Vein, Percutaneous Approach (ICD-10-PCS; principal; 2017-11-01)
DX: E11.65 Type 2 diabetes mellitus with hyperglycemia (principal); Z79.4 Long term (current) use of insulin; I10 Essential (primary) hypertension; E78.00 Pure hypercholesterolemia, unspecified; I69.854 Hemiplegia and hemiparesis following other cerebrovascular disease affecting left non-dominant side
CPT/HCPCS: 36415; 80048; 80053; 81003; 82009; 82550; 82803; 82962; 84484; 85025; 93005; 93010; 99284-25; J7030

== ENCOUNTER 2017-11-28 14:32 | Observation (INO) | payer OTHER ==
[2017-11-28 14:51] VITALS: BMI 21.6
--- NOTE | 2017-11-28 14:55 | PDOC ---
Rapid Medical Evaluation Time Seen by Provider: 11/28/17 14:49 Medical Evaluation: Allergies Allergy/AdvReac Type Severity Reaction Status Date / Time No Known Allergies Allergy Verified 11/28/17 14:49 11/28/17 14:49 I have performed a brief in-person evaluation of this patient. The patient presents with a chief complaint of: High Blood Sugar, Dizzy and feeling bad, uses sliding scale Pertinent physical exam findings:mildy weak, dizzy, I have ordered the following: CBC, CMP, UA, Acetone, Lipase, IV, Fingerstick The patient will proceed to the ED for further evaluation. 11/28/17 14:54 Discharge Disposition - Referrals Referrals: Darion Morales [Primary Care Provider] - - Patient Instructions - Post Discharge Activity
[2017-11-28] MEDS ORDERED: SODIUM CHLORIDE 1,000 ML IV STA ×2 (15:37→17:26)
[2017-11-28] MEDS ORDERED: FAMOTIDINE 20 MG/50 ML IVPB 20 MG/50 ML MG IVPB ONE ×2 (15:37→17:00)
--- NOTE | 2017-11-28 15:39 | PDOC ---
History of Present Illness - General Chief Complaint: Blood Sugar Problem Stated Complaint: Blood Sugar Problem Time Seen by Provider: 11/28/17 14:49 - History of Present Illness Initial Comments: 11/28/17 17:32 The patient is a 62 year old female with a history of HTN, DM who presents for evaluation of chest pain and elevated blood sugars. The patient notes a several day history of intermittent burning epigastric abdominal pain with associated chest pain, lightheadedness, increased thirst and urination. She noted her blood sugar to be "above range" today at home prompting her presentation to the ED for further evaluation. She otherwise denies fevers, chills, SOB, nausea, vomiting, or changes with bowel movements. Past History - Past Medical History Allergies/Adverse Reactions: Allergies Allergy/AdvReac Type Severity Reaction Status Date / Time No Known Allergies Allergy Verified 11/28/17 14:49 Home Medications: Ambulatory Orders Aspirin Coated [Ecotrin -] 81 mg PO DAILY tablet.ec 06/28/17 Tolterodine Tartrate [Detrol -] 1 mg PO DAILY #60 tablet 06/28/17 Insulin Aspart [Novolog Flexpen] 20 unit SQ AC 11/01/17 Insulin Detemir [Levemir Flextouch] 30 unit SQ AM 11/01/17 Asthma: No CVA: Yes COPD: No Diabetes: Yes HTN: Yes Psychiatric Problems: Yes (Depression) Thyroid Disease: No - Immunization History Immunization Up to Date: No - Suicide/Smoking/Psychosocial Hx Smoking History: Never smoked Have you smoked in the past 12 months: No Hx Alcohol Use: No Drug/Substance Use Hx: No Substance Use Type: None Hx Substance Use Treatment: No Review of Systems - Review of Systems Comments:: 11/28/17 17:35 Constitutional: No fevers, chills, fatigue, malaise HEENT: No Rhinorrhea, nasal congestion, visual changes Cardiovascular: Chest pain, lightheadedness. No syncope, palpitations, Respiratory: No Cough, SOB, Hemoptysis, Gastrointestinal: Abdominal pain. No Nausea, Vomiting, Constipation, Diarrhea, Melena Genitourinary: Increased Frequency. No Dysuria, Urgency, Hesitancy, Hematuria, Flank pain Musculoskeletal: No Myalgia, arthralgia Skin: No rashes, itching, bruising, pallor Neurologic: No Headache, Dizziness, Numbness, Weakness, or Tingling Psychiatric: No Hallucinations. No SI or HI *Physical Exam - Vital Signs Last Vital Signs Temp Pulse Resp BP Pulse Ox 98.0 F 103 H 18 127/78 98 11/28/17 14:49 11/28/17 14:49 11/28/17 14:49 11/28/17 14:49 11/28/17 14:49 - Physical Exam Comments: 11/28/17 17:36 General Appearance: Nourished. No Apparent Distress HEENT: EOMI, MANDI. No Pharyngeal Erythema, Tonsillar Exudate, Tonsillar Erythema Neck: No Cervical Lymphadenopathy Respiratory/Chest: Lungs Clear, Normal Breath Sounds. No Crackles, Rales, Rhonchi, Wheezing Cardiovascular: Regular Rhythm, Regular Rate. No Murmur, Gallops, Rubs Gastrointestinal/Abdominal: Normal Bowel Sounds, Soft. Mild epigastric tenderness to deep palpation. No Guarding, Rebound, Musculoskeletal: No CVA Tenderness Extremity: Normal Capillary Refill Integumentary: Normal Color, Dry, Warm Neurologic: Fully Oriented, Alert, Normal Mood/Affect, Normal Response, ED Treatment Course - LABORATORY CBC & Chemistry Diagram: 11/28/17 15:30 11/28/17 16:29 Medical Decision Making - Medical Decision Making 11/28/17 17:37 The patient is a 62 year old female with a history of HTN, DM who presents for evaluation of chest pain and elevated blood sugars. Differential includes but is not limited to: ACS, DKA, HHS, Infectious, Metabolic Derangement. Given the patient's history and physical exam, we will obtain a cbc, cmp, ua, acetone, ekg , chest plain film, troponin to evaluate further for possible etiologies. Given the patient's risk factors and presenting chest pain in the setting of hyperglycemia, she will likely require observation admission for further monitoring. *DC/Admit/Observation/Transfer Diagnosis at time of Disposition: Hyperglycemia Chest pain Qualifiers: Chest pain type: unspecified Qualified Code(s): R07.9 - Chest pain, unspecified - Discharge Dispostion Condition at time of disposition: Stable Decision to Admit order: Yes - Referrals Referrals: Darion Morales [Primary Care Provider] - - Patient Instructions - Post Discharge Activity
[2017-11-28 15:50] LABS: BASO % 0.8 % (0-2.0); EOS % 0.5 % (0-4.5); HEMATOCRIT 37.2 % (32.4-45.2); HEMOGLOBIN 12.3 GM/dL (10.7-15.3); LYMPH % 14.5 % (8-40); MCH 30.3 pg (25.7-33.7); MCHC 33.1 g/dl (32.0-36.0); MEAN CELL VOLUME 91.6 fl (80-96); MEAN PLT VOLUME 10.3 fl (7.5-11.1); MONO % 7.2 % (3.8-10.2); PLATELET COUNT 208 K/MM3 (134-434); RBC 4.07 M/mm3 (3.60-5.2); RDW 14.6 % (11.6-15.6); WHITE BLOOD COUNT 6.9 K/mm3 (4.0-10.0)
[2017-11-28 17:12] LABS: ALBUMIN 3.5 g/dl (3.4-5.0); ALK PHOS 89 U/L (45-117); ANION GAP 6 (8-16); BILIRUBIN,TOTAL 0.2 mg/dL (0.2-1.0); BLOOD UREA NITROGEN 21 mg/dL (7-18); CALCIUM 9.6 mg/dL (8.5-10.1); CHLORIDE 110 mmol/L (98-107); CO2 27 mmol/L (21-32); CREATININE 0.9 mg/dL (0.55-1.02); GLUCOSE,RANDOM 234 mg/dL (74-106); SGPT/ALT 25 U/L (12-78); SODIUM 143 mmol/L (136-145)
[2017-11-28 17:14] LABS: POTASSIUM 4.4 mmol/L (3.5-5.1); SGOT/AST 21 U/L (15-37)
--- NOTE | 2017-11-28 17:35 | PDOC ---
Attending Attestation - Resident Resident Name: Leighton Tan - ED Attending Attestation I have performed the following: I have examined & evaluated the patient, The case was reviewed & discussed with the resident, I agree w/resident's findings & plan, Exceptions are as noted - Physicial Exam PE: 11/28/17 17:33 awake alert lungs clear bilaterally heart rrr nomrg. abd soft nt n. ext wwp no edema no calf tenderness. skin warm and dry. - Medical Decision Making 11/28/17 17:34 62 yo F wit h/o DM here with c/o polyuria polydypsia, fatigue and also c/o sob and chest pain. plan r/o dka, hoonk, hyperglycemia, renal failure, anemia, cardiac cause such as ACS. ekg. will likley require admission observation r/o acs, and control sugars. pt pcp is dr. Sparks. <Gracia Hadley - Last Filed: 11/28/17 18:08> - HPI HPI: 11/28/17 17:58 The patient is a 62 year old female, with a significant past medical history of hypertension and diabetes mellitus who presents to the emergency department complaining of 2 days of epigastric abdominal discomfort, lightheadedness, increased urinary frequency and increased thirst. The patient states she checked her blood glucose today and noted her sugar was high which prompted her to come to the ED for evaluation. The patient states she has been complaint with her insulin medication. The patient also endorses chest pain and shortness of breath. The patient denies headache and dizziness. Denies fever, chills, nausea, vomit, diarrhea and constipation. Denies dysuria, urgency and hematuria. Allergies: NKA Documentation prepared by Desean Kiran, acting as medical screener for Gracia Hadley MD. <Desean Kiran - Last Filed: 11/28/17 18:17> Heart Score/ECG Review #1 ECG reviewed & interpreted by me at: 17:35 General ECG Interpretation: Sinus Rhythm, Normal Rate (79), Normal Intervals, No acute ischemic changes <Gracia Hadley - Last Filed: 11/28/17 18:08>
[2017-11-28 21:02] LABS: URINE APPEARANCE CLEAR; URINE BILIRUBIN NEGATIVE (<2.0 mg/dL); URINE BLOOD NEGATIVE (NEGATIVE); URINE COLOR STRAW; URINE GLUCOSE (UA) 3+ (NEGATIVE); URINE KETONE NEGATIVE (NEGATIVE); URINE LEUK ESTERASE NEGATIVE (NEGATIVE); URINE NITRITE NEGATIVE (NEGATIVE); URINE PROTEIN NEGATIVE (NEGATIVE); URINE UROBILINOGEN NEGATIVE mg/dL (0.2-1.0)
[2017-11-28] MEDS ORDERED: INSULIN (NOVOLOG) ASPART 100 UNITS/ML 10ML VIAL SQ ONE (21:22)
--- NOTE | 2017-11-28 21:23 | HP ---
CHIEF COMPLAINT: dizziness, SOB PCP: Andrew HISTORY OF PRESENT ILLNESS: This is a 62 year old female with a past medical history of DM, CVA who presented to the ED with dizziness and shortness of breath today. Pt reports sensation of being unable to catch her breath. She denies any chest pain. She describes the dizziness as a loss of balance and denies room spinning sensation. Sugar reading was "hi" today on her glucometer. 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 PAST SURGICAL HISTORY: hysterectomy Social History: Smoking: pt denies Alcohol: pt denies Drugs: pt denies Family History: mother age 85, DM, HTN father age 77, renal ca 13 siblings, one with DM, others alive and Allergies No Known Allergies Allergy (Verified 11/28/17 14:49) HOME MEDICATIONS: 3 Medication Instructions Recorded Aspirin Coated [Ecotrin -] 81 mg PO DAILY tablet.ec 06/28/17 Insulin Aspart [Novolog Flexpen] 10 unit SQ AC 11/01/17 Insulin Detemir [Levemir Flextouch] 14 unit SQ AM 11/01/17 REVIEW OF SYSTEMS CONSTITUTIONAL: Absent: fever, chills, diaphoresis, generalized weakness, malaise, loss of appetite, weight change HEENT: Absent: rhinorrhea, nasal congestion, throat pain, throat swelling, difficulty swallowing, mouth swelling, ear pain, eye pain, visual changes CARDIOVASCULAR: Absent: chest pain, syncope, palpitations, irregular heart rate, lightheadedness , peripheral edema RESPIRATORY: Present: shortness of breath Absent: cough, dyspnea with exertion, orthopnea, wheezing, stridor, hemoptysis GASTROINTESTINAL: Absent: abdominal pain, abdominal distension, nausea, vomiting, diarrhea, constipation, melena, hematochezia GENITOURINARY: Absent: dysuria, frequency, urgency, hesitancy, hematuria, flank pain, genital pain MUSCULOSKELETAL: Absent: myalgia, arthralgia, joint swelling, back pain, neck pain SKIN: Absent: rash, itching, pallor HEMATOLOGIC/IMMUNOLOGIC: Absent: easy bleeding, easy bruising, lymphadenopathy, frequent infections ENDOCRINE: Absent: unexplained weight gain, unexplained weight loss, heat intolerance, cold intolerance NEUROLOGIC: Present: dizziness Absent: headache, focal weakness or paresthesias, unsteady gait, seizure, mental status changes, bladder or bowel incontinence PSYCHIATRIC: Absent: anxiety, depression, suicidal or homicidal ideation, hallucinations. PHYSICAL EXAMINATION Vital Signs - 24 hr 3 11/28/17 11/28/17 14:49 20:50 Temperature 98.0 F Pulse Rate 103 H Pulse Rate [ 87 Apical] Respiratory 18 18 Rate Blood Pressure 127/78 Blood Pressure 143/77 [Right Arm] O2 Sat by Pulse 98 98 Oximetry (%) GENERAL: Awake, alert, and fully oriented, in no acute distress. HEAD: Normal with no signs of trauma. EYES: Pupils equal, round and reactive to light, extraocular movements intact, sclera anicteric, conjunctiva clear. No lid lag. EARS, NOSE, THROAT: Ears normal, nares patent, oropharynx clear without exudates. Moist mucous membranes. NECK: Normal range of motion, supple without lymphadenopathy, JVD, or masses. LUNGS: Breath sounds equal, clear to auscultation bilaterally. No wheezes, and no crackles. No accessory muscle use. HEART: Regular rate and rhythm, normal S1 and S2 without murmur, rub or gallop. ABDOMEN: Soft, nontender, not distended, normoactive bowel sounds, no guarding, no rebound, no masses. No hepatomegaly or splenomegaly. MUSCULOSKELETAL: Normal range of motion at all joints. No bony deformities or tenderness. No CVA tenderness. UPPER EXTREMITIES: 2+ pulses, warm, well-perfused. No cyanosis. No clubbing. No peripheral edema. LOWER EXTREMITIES: 2+ pulses, warm, well-perfused. No calf tenderness. Tr peripheral edema right lower leg. R 2-5 distal toe autoamputation NEUROLOGICAL: Cranial nerves II-XII intact. Normal speech. Normal gait. PSYCHIATRIC: Cooperative. Good eye contact. Appropriate mood and affect. SKIN: Warm, dry, normal turgor, no rashes or lesions noted, normal capillary refill. Laboratory Results - last 24 hr 3 11/28/17 11/28/17 11/28/17 15:30 15:30 15:30 WBC 6.9 RBC 4.07 Hgb 12.3 Hct 37.2 MCV 91.6 MCH 30.3 MCHC 33.1 RDW 14.6 Plt Count 208 D MPV 10.3 D Absolute Neuts (auto) 5.3 Neutrophils % 77.0 Lymphocytes % 14.5 Monocytes % 7.2 Eosinophils % 0.5 Basophils % 0.8 Nucleated RBC % 0 Sodium Cancelled Potassium Cancelled Chloride Cancelled Carbon Dioxide Cancelled Anion Gap Cancelled BUN Cancelled Creatinine Cancelled Creat Clearance w eGFR Cancelled Random Glucose Cancelled Calcium Cancelled Total Bilirubin Cancelled AST Cancelled ALT Cancelled Alkaline Phosphatase Cancelled Creatine Kinase Troponin I Total Protein Cancelled Albumin Cancelled Lipase Cancelled Urine Color Urine Appearance Urine pH Ur Specific [place] Urine Protein Urine Glucose (UA) Urine Ketones Urine Blood Urine Nitrite Urine Bilirubin Urine Urobilinogen Ur Leukocyte Esterase Acetone, Qual Negative L 3 11/28/17 11/28/17 11/28/17 16:29 17:25 17:25 WBC RBC Hgb Hct MCV MCH MCHC RDW Plt Count MPV Absolute Neuts (auto) Neutrophils % Lymphocytes % Monocytes % Eosinophils % Basophils % Nucleated RBC % Sodium 143 Potassium 4.4 Chloride 110 H Carbon Dioxide 27 Anion Gap 6 L BUN 21 H Creatinine 0.9 Creat Clearance w eGFR > 60 Random Glucose 234 H Calcium 9.6 Total Bilirubin 0.2 AST 21 ALT 25 Alkaline Phosphatase 89 Creatine Kinase 91 Troponin I < 0.02 Total Protein 8.0 Albumin 3.5 Lipase 156 Urine Color Urine Appearance Urine pH Ur Specific [place] Urine Protein Urine Glucose (UA) Urine Ketones Urine Blood Urine Nitrite Urine Bilirubin Urine Urobilinogen Ur Leukocyte Esterase Acetone, Qual 3 Urine Color Straw 11/28/17 20:50 Urine Appearance Clear 11/28/17 20:50 Urine pH 5.0 (5.0-8.0) 11/28/17 20:50 Ur Specific [place] 1.015 (1.001-1.035) 11/28/17 20:50 Urine Protein Negative (NEGATIVE) 11/28/17 20:50 Urine Glucose (UA) 3+ (NEGATIVE) H 11/28/17 20:50 Urine Ketones Negative (NEGATIVE) 11/28/17 20:50 Urine Blood Negative (NEGATIVE) 11/28/17 20:50 Urine Nitrite Negative (NEGATIVE) 11/28/17 20:50 Urine Bilirubin Negative (<2.0 mg/dL) 11/28/17 20:50 Ur Leukocyte Esterase Negative (NEGATIVE) 11/28/17 20:50 ECG Normal sinus rhythm vent rate 79, QTC 392 possible L atrial enlargement No acute St/T wave changes ASSESSMENT/PLAN: 62yF with PMH DM, CVA 2013, depression, 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 dizziness/lightheadedness - CT head ordered - likely due to fluctuations in BP - trend troponin to r/o cardiac event - admit to tele shortness of breath - resolved, oxygen sat WNL DM - BGM elevated now, will give 16u now, repeat BGM in 2 h - Cont home levemir, AC novolog - BGM AC/HS with novolog SS - master control technician consult DVT PPX - Defer heparin, low risk, expected LOS <48h, encourage ambulation FEN - tolerating po - BMP @ 12am and in am - diabetic diet as tolerated Dispo: Pt currently requires further observation for management of her emergent condition. Visit type - Emergency Visit Emergency Visit: Yes ED Registration Date: 11/28/17 Care time: The patient presented to the Emergency Department on the above date and was hospitalized for further evaluation of their emergent condition. - New Patient This patient is new to me today: Yes Date on this admission: 11/28/17 - Critical Care Critical Care patient: No Hospitalist Screening - Colonoscopy Questionnaire Colonoscopy Questionnaire: Colonoscopy Questionnaire - Patient: 50 - 75 years old and never had a screening colonoscopy: Yes History of colon or rectal polyps, or CA: No History of IBD, Crohn's disease or UC: No History of abdominal radiation therapy as a child: No - Relative: 1 with colon or rectal CA, or polyps at age 60 or younger: No Colon or rectal CA diagnosed at age 45 or younger: No Multiple relatives with colon or rectal CA: No - Outcome: Screening Result: Positive Screen
[2017-11-28] MEDS ORDERED: INSULIN SLIDING SCALE (NOVOLOG) 1 VIAL SQ SCH (22:00)
[2017-11-29 00:54] LABS: ANION GAP 5 (8-16); BLOOD UREA NITROGEN 16 mg/dL (7-18); CALCIUM 8.9 mg/dL (8.5-10.1); CHLORIDE 112 mmol/L (98-107); CO2 28 mmol/L (21-32); CREATININE 0.8 mg/dL (0.55-1.02); GLUCOSE,RANDOM 80 mg/dL (74-106); SODIUM 145 mmol/L (136-145)
[2017-11-29 01:00] LABS: POTASSIUM 4.8 mmol/L (3.5-5.1)
[2017-11-29 06:20] VITALS: TEMP 98.2
[2017-11-29] MEDS: INSULIN SLIDING SCALE (NOVOLOG) 1 VIAL SQ SCH ×2 (06:39→11:46)
[2017-11-29 06:48] LABS: ANION GAP 5 (8-16); BLOOD UREA NITROGEN 15 mg/dL (7-18); CALCIUM 8.4 mg/dL (8.5-10.1); CHLORIDE 110 mmol/L (98-107); CO2 24 mmol/L (21-32); GLUCOSE,RANDOM 265 mg/dL (74-106); MAGNESIUM 1.8 mg/dL (1.8-2.4); POTASSIUM 3.9 mmol/L (3.5-5.1); SODIUM 139 mmol/L (136-145)
[2017-11-29 06:50] LABS: BASO % 0.8 % (0-2.0); HEMATOCRIT 30.8 % (32.4-45.2); HEMOGLOBIN 10.2 GM/dL (10.7-15.3); LYMPH % 32.8 % (8-40); MCH 30.5 pg (25.7-33.7); MCHC 33.2 g/dl (32.0-36.0); MEAN CELL VOLUME 92.1 fl (80-96); MEAN PLT VOLUME 10.1 fl (7.5-11.1); MONO % 7.9 % (3.8-10.2); NEUT % 57.5 % (42.8-82.8); PLATELET COUNT 150 K/MM3 (134-434); RBC 3.35 M/mm3 (3.60-5.2); RDW 14.9 % (11.6-15.6); WHITE BLOOD COUNT 5.6 K/mm3 (4.0-10.0)
[2017-11-29 06:56] LABS: CREATININE 0.8 mg/dL (0.55-1.02); PHOSPHOROUS 2.6 mg/dL (2.5-4.9)
--- NOTE | 2017-11-29 10:31 | DS ---
Physical Examination Vital Signs: Vital Signs Temperature 98.2 F 11/29/17 06:00 Pulse Rate 82 11/29/17 06:00 Respiratory Rate 20 11/29/17 06:00 Blood Pressure 138/84 11/29/17 06:00 O2 Sat by Pulse Oximetry (%) 98 11/29/17 06:00 Findings/Remarks: AWAKE ALERT NAD DENIES HEADACHES OR DIZZINESS Constitutional: Yes: No Distress Eyes: Yes: WNL HENT: Yes: WNL Neck: Yes: WNL Cardiovascular: Yes: WNL Respiratory: Yes: WNL Gastrointestinal: Yes: WNL ...Rectal Exam: Yes: WNL Musculoskeletal: Yes: WNL Extremities: Yes: WNL Edema: No Peripheral Pulses WNL: Yes Integumentary: Yes: WNL Wound/Incision: Yes: Clean/Dry Neurological: Yes: WNL ...Motor Strength: WNL Psychiatric: Yes: WNL Labs: CBC, BMP 11/29/17 06:00 11/29/17 06:00 Discharge Summary Reason For Visit: HYPERGLYCEMIA,CHEST PAIN Current Active Problems Chest pain (Acute) Hyperglycemia (Acute) Procedures: Principal: CT HEAD NO ACUTE CHANGES Hospital Course: ADMITTED FOR DIZZINESS AND HYPERGLYCEMIA, FEELS GOOD TODAY, HEAD CT NO ACUTE CHANGES. NEEDS TO F/U WITH ENDOCRINE TODAY OR TOMORROW OUTPATIENT Condition: Stable - Instructions Diet, Activity, Other Instructions: SEE YOUR PMD TODAY OR TOMORROW ADA/LOW NA+ Referrals: Darion Morales [Primary Care Provider] - Disposition: VNS/HOME HEALTH CARE - Home Medications Comprehensive Discharge Medication List: Ambulatory Orders Aspirin Coated [Ecotrin -] 81 mg PO DAILY tablet.ec 06/28/17 Insulin Aspart [Novolog Flexpen] 10 unit SQ AC 11/01/17 Insulin Detemir [Levemir Flextouch] 14 unit SQ AM 11/01/17
[2017-11-29 10:33] VITALS: BP 141/91; PULSE 90
--- NOTE | 2017-11-29 11:45 | EKG ---
Test Reason : Blood Pressure : / mmHG Vent. Rate : 079 BPM Atrial Rate : 079 BPM P-R Int : 172 ms QRS Dur : 086 ms QT Int : 342 ms P-R-T Axes : 060 025 054 degrees QTc Int : 392 ms NORMAL SINUS RHYTHM POSSIBLE LEFT ATRIAL ENLARGEMENT NONSPECIFIC T WAVE ABNORMALITY ABNORMAL ECG WHEN COMPARED WITH ECG OF 01-NOV-2017 18:36, NO SIGNIFICANT CHANGE WAS FOUND Confirmed by KRISTIN PIERSON, MITCHELL ([id number]) on 11/29/2017 11:44:52 AM Referred By: Confirmed By:MITCHELL FOSTER MD
--- NOTE | 2017-11-30 00:39 | CONSULT ---
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 Cardio/Vascular: Yes: HTN Renal/: Yes: Renal Inusuff Psych: Yes: Depression Musculoskeletal: Yes: 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) Endocrine: Yes: Diabetes Mellitus - Past Surgical History Past Surgical History: Yes: Hysterectomy (and BSO-- for fibroids), Tubal Ligation - Alcohol/Substance Use Hx Alcohol Use: No History of Substance Use: reports: None - Smoking History Smoking history: Never smoked Have you smoked in the past 12 months: No - Social History ADL: Independent Occupation: retired History of Recent Travel: No Home Medications - Allergies Allergies/Adverse Reactions: Allergies Allergy/AdvReac Type Severity Reaction Status Date / Time No Known Allergies Allergy Verified 11/28/17 14:49 - Home Medications Home Medications: Ambulatory Orders Aspirin Coated [Ecotrin -] 81 mg PO DAILY tablet.ec 06/28/17 Insulin Aspart [Novolog Flexpen] 10 unit SQ AC 11/01/17 Insulin Detemir [Levemir Flextouch] 14 unit SQ AM 11/01/17 Family Disease History - Family Disease History Family Disease History: Diabetes: Mother (HTN) Review of Systems - Review of Systems Constitutional: reports: Weakness Eyes: reports: Blurred Vision HENT: reports: No Symptoms Neck: reports: No Symptoms Cardiovascular: reports: No Symptoms Respiratory: reports: No Symptoms Gastrointestinal: reports: Bloating Genitourinary: reports: Frequency Breasts: reports: No Symptoms Reported Musculoskeletal: reports: Muscle Weakness Neurological: reports: Weakness Endocrine: reports: Increased Hunger, Increased Thirst Physical Exam Vital Signs: Vital Signs Temperature 98.2 F 11/29/17 10:00 Pulse Rate 90 11/29/17 10:00 Respiratory Rate 16 11/29/17 10:00 Blood Pressure 141/91 11/29/17 10:00 O2 Sat by Pulse Oximetry (%) 98 11/29/17 06:00 Constitutional: Yes: Calm Eyes: Yes: EOM Intact HENT: Yes: Normocephalic Neck: Yes: Trachea Midline Cardiovascular: Yes: Regular Rate and Rhythm Respiratory: Yes: CTA Bilaterally Gastrointestinal: Yes: Normal Bowel Sounds ...Rectal Exam: Yes: Deferred Renal/: Yes: WNL Musculoskeletal: Yes: WNL Labs: CBC, BMP 11/29/17 06:00 11/29/17 06:00 Problem List - Problems (1) Type 2 diabetes mellitus with hyperosmolarity without nonketotic hyperglycemic-hyperosmolar coma ([facility]) Code(s): E11.00 - TYPE 2 DIAB W HYPROSM W/O NONKET HYPRGLY-HYPROS COMA ([facility]) (2) Diabetes mellitus with hyperosmolarity, with long-term current use of insulin Code(s): E11.00 - TYPE 2 DIAB W HYPROSM W/O NONKET HYPRGLY-HYPROS COMA ([facility]); Z79.4 - MOLD SPRAYER (CURRENT) USE OF INSULIN (3) Chest pain Code(s): R07.9 - CHEST PAIN, UNSPECIFIED Qualifiers: Chest pain type: unspecified Qualified Code(s): R07.9 - Chest pain, unspecified (4) Depression Code(s): F32.9 - MAJOR DEPRESSIVE DISORDER, SINGLE EPISODE, UNSPECIFIED (5) HTN (hypertension) Code(s): I10 - ESSENTIAL (PRIMARY) HYPERTENSION Assessment/Plan dm hyperglycemia,non compliance therapy and diet htn hyperlipidemia depression Abnormal Lab Results 11/29/17 11/29/17 11/29/17 00:00 06:00 06:00 RBC 3.35 L Hgb 10.2 L D Hct 30.8 L D Chloride 112 H 110 H Anion Gap 5 L 5 L Random Glucose 265 H Hemoglobin A1c % Calcium 8.4 L 11/29/17 06:00 RBC Hgb Hct Chloride Anion Gap Random Glucose Hemoglobin A1c % 14.7 H Calcium plan: given advice to follow up in as outpatient sliding scale novolog given rx levemir 30 units bid to see equipment planner and repeat bmp in 1 weak as op
== END 2017-11-29 14:32 | disposition home health service (06) ==
LOC: JER 14:32 → JERBED 18:34 → J4W 21:09
PROVIDERS: ADMIT Family Medicine; ATTEND Family Medicine
PROC: 3E033GC Introduction of Other Therapeutic Substance into Peripheral Vein, Percutaneous Approach (ICD-10-PCS; principal; 2017-11-28)
PROC: 3E0337Z Introduction of Electrolytic and Water Balance Substance into Peripheral Vein, Percutaneous Approach (ICD-10-PCS; 2017-11-28)
PROC: 3E013VG Introduction of Insulin into Subcutaneous Tissue, Percutaneous Approach (ICD-10-PCS; 2017-11-28)
DX: R07.9 Chest pain, unspecified (principal); E11.65 Type 2 diabetes mellitus with hyperglycemia; R42 Dizziness and giddiness; R06.02 Shortness of breath; I10 Essential (primary) hypertension; F32.9 Major depressive disorder, single episode, unspecified; Z86.73 Personal history of transient ischemic attack (TIA), and cerebral infarction without residual deficits; Z79.4 Long term (current) use of insulin; Z89.421 Acquired absence of other right toe(s); Z79.82 Long term (current) use of aspirin; Z90.710 Acquired absence of both cervix and uterus
CPT/HCPCS: 36415; 70450-TC; 71045-TC-FY; 80048; 80053; 81003; 82009; 82550; 82962; 83036; 83690; 83735; 84100; 84484; 85025; 93005; 93010; 96361; 96365; 96372; 99283-25; G0378; J7030

== ENCOUNTER 2017-12-30 22:55 | Inpatient (IN) | payer OTHER ==
--- NOTE | 2017-12-30 23:32 | PDOC ---
History of Present Illness - General History Source: Patient Exam Limitations: No Limitations - History of Present Illness Initial Comments: 12/31/17 03:29 The patient is a 62 year old female with a significant past medical history of HTN, CVA, depression, and diabetes who presents to the emergency department for evaluation of high blood sugar. The patient reports high blood glucose level yesterday and today. Pt reports a 3 day history of stomach discomfort and no appetite. She states she has been drinking some juice. The patient reports associated symptoms of chills, dysuria, nausea, and constipation. Of note, the patient notes she lost 75lbs (175lbs to 125lbs) over the last 3 months. The patient denies sick contact, chest pain, shortness of breath, cardiac history, vomiting, fever, and diarrhea. Allergies: NKDA Social History: No reported alcohol, cigarette, and drug use. Surgical History: Uterine fibroid removal PCP: Dr. Morales <Franco Garcia - Last Filed: 12/31/17 03:29> <Almaz Davis - Last Filed: 01/01/18 04:28> - General Chief Complaint: Blood Sugar Problem Stated Complaint: DIABETES Time Seen by Provider: 12/30/17 23:32 Past History <Franco Garcia - Last Filed: 12/31/17 03:29> - Past Medical History Asthma: No CVA: Yes COPD: No Diabetes: Yes HTN: Yes Psychiatric Problems: Yes (Depression) Thyroid Disease: No - Immunization History Immunization Up to Date: No - Suicide/Smoking/Psychosocial Hx Smoking History: Never smoked Have you smoked in the past 12 months: No Information on smoking cessation initiated: No Hx Alcohol Use: No Drug/Substance Use Hx: No Substance Use Type: None Hx Substance Use Treatment: No <Almaz Davis - Last Filed: 01/01/18 04:28> - Past Medical History Allergies/Adverse Reactions: Allergies Allergy/AdvReac Type Severity Reaction Status Date / Time No Known Allergies Allergy Verified 12/30/17 23:23 Home Medications: Ambulatory Orders Aspirin Coated [Ecotrin -] 81 mg PO DAILY tablet.ec 06/28/17 Insulin Aspart [Novolog Flexpen] 10 unit SQ AC 11/01/17 Insulin Detemir [Levemir Flextouch] 14 unit SQ AM 11/01/17 Review of Systems - Review of Systems Able to Perform ROS?: Yes Comments:: GENERAL/CONSTITUTIONAL: (+)Chills. No fever or chills. No weakness. HEAD, EYES, EARS, NOSE AND THROAT: No change in vision. No ear pain or discharge. No sore throat. CARDIOVASCULAR: No chest pain or shortness of breath. RESPIRATORY: No cough, wheezing, or hemoptysis. GASTROINTESTINAL: (+)nausea. (+)constipation. No vomiting or diarrhea. GENITOURINARY: (+)dysuria. No frequency, or change in urination. MUSCULOSKELETAL: (+)epigastric discomfort. No joint or muscle swelling or pain. No neck or back pain. SKIN: No rash NEUROLOGIC: No headache, vertigo, loss of consciousness, or change in strength/ sensation. ENDOCRINE: No increased thirst. No abnormal weight change. HEMATOLOGIC/LYMPHATIC: No anemia, easy bleeding, or history of blood clots. ALLERGIC/IMMUNOLOGIC: No hives or skin allergy. Is the patient limited Greek proficient: No <Franco Garcia - Last Filed: 12/31/17 03:29> *Physical Exam - Vital Signs Last Vital Signs Temp Pulse Resp BP Pulse Ox 97.6 F 89 20 149/83 96 12/30/17 23:00 12/30/17 23:00 12/30/17 23:00 12/30/17 23:00 12/30/17 23:00 - Physical Exam Comments: GENERAL: Awake, alert, and fully oriented, in no acute distress HEAD: No signs of trauma EYES: PERRLA, EOMI, sclera anicteric, conjunctiva clear ENT: Auricles normal inspection, hearing grossly normal, nares patent, oropharynx clear without exudates. Moist mucosa NECK: Normal ROM, supple. LUNGS: Breath sounds equal, clear to auscultation bilaterally. No wheezes, and no crackles HEART: Regular rate and rhythm, normal S1 and S2, no murmurs, rubs or gallops ABDOMEN: (+)Tenderness of lower abdomen. (+)Decreased bowel sounds (+)Rebound tenderness in LLQ (+)Guarding. EXTREMITIES: Normal range of motion, no edema. No clubbing or cyanosis. No cords, erythema, or tenderness NEUROLOGICAL: Cranial nerves II through XII grossly intact. SKIN: Warm, Dry, normal turgor, no rashes or lesions noted. <Franco Garcia - Last Filed: 12/31/17 03:29> - Vital Signs Last Vital Signs Temp Pulse Resp BP Pulse Ox 97.6 F 89 20 149/83 96 12/30/17 23:00 12/30/17 23:00 12/30/17 23:00 12/30/17 23:00 12/30/17 23:00 <Almaz Davis - Last Filed: 01/01/18 04:28> ED Treatment Course - LABORATORY CBC & Chemistry Diagram: 12/31/17 01:15 12/31/17 01:15 - ADDITIONAL ORDERS Additional order review: Laboratory Results 12/31/17 12/30/17 01:15 23:50 Sodium 146 H Potassium 4.9 Chloride 111 H Carbon Dioxide 27 Anion Gap 8 BUN 24 H Creatinine 1.3 H Creat Clearance w eGFR 41.24 Random Glucose 761 H* Calcium 9.7 Total Bilirubin 0.4 AST 16 ALT 28 Alkaline Phosphatase 86 Total Protein 7.8 Albumin 3.4 Urine Color Colorless Urine Appearance Clear Urine pH 6.0 Ur Specific [place] 1.023 Urine Protein Negative Urine Glucose (UA) 3+ H Urine Ketones Trace H Urine Blood Negative Urine Nitrite Negative Urine Bilirubin Negative Urine Urobilinogen Negative Ur Leukocyte Esterase Negative Acetone, Qual Positive moderate 2+ H 12/31/17 01:15 RBC 3.94 MCV 93.5 MCHC 32.8 RDW 14.6 MPV 10.5 Neutrophils % 72.4 D Lymphocytes % 18.3 D Monocytes % 8.2 Eosinophils % 0.5 Basophils % 0.6 - Medications Given in the ED: ED Medications Discontinued Medications Generic Name Dose Route Start Last Admin Trade Name Jessy PRN Reason Stop Dose Admin Sodium Chloride 500 ml 12/30/17 23:33 12/30/17 23:45 Normal Saline - IV 12/30/17 23:34 500 ml ONCE ONE Administration <Franco Garcia - Last Filed: 12/31/17 03:29> - LABORATORY CBC & Chemistry Diagram: 12/31/17 07:45 12/31/17 14:00 <Almaz Davis - Last Filed: 01/01/18 04:28> Medical Decision Making - Medical Decision Making 01/01/18 04:26 Pt comes with complaint that her sugars are out of control. Pt doesnt seem to be in distress and she is not febrile or overweight, or have any other complaints. To our surprise her blood sugar returned at 760, after she received a L of NSS. SHe also has 2+ acetone. She will be started on an insulin drip and admitted to the ICU for further workup and treatment. <Almaz Davis - Last Filed: 01/01/18 04:28> *DC/Admit/Observation/Transfer - Attestations Scribe Attestion: Documentation prepared by Franco Garcia, acting as biomedical equipment support specialist for Almaz Davis MD. <Franco Garcia - Last Filed: 12/31/17 03:29> - Discharge Dispostion Decision to Admit order: Yes <Almaz Davis - Last Filed: 01/01/18 04:28> Diagnosis at time of Disposition: DKA (diabetic ketoacidoses) - Discharge Dispostion Condition at time of disposition: Guarded
[2017-12-30] MEDS ORDERED: SODIUM CHLORIDE 0.9% 500 ML INFUS.BAG IV ONE (23:33)
[2017-12-31 00:28] LABS: URINE APPEARANCE CLEAR; URINE BILIRUBIN NEGATIVE (<2.0 mg/dL); URINE COLOR COLORLESS; URINE GLUCOSE (UA) 3+ (NEGATIVE); URINE KETONE TRACE (NEGATIVE); URINE LEUK ESTERASE NEGATIVE (NEGATIVE); URINE NITRITE NEGATIVE (NEGATIVE); URINE PROTEIN NEGATIVE (NEGATIVE); URINE UROBILINOGEN NEGATIVE mg/dL (0.2-1.0)
[2017-12-31 01:35] LABS: BASO % 0.6 % (0-2.0); EOS % 0.5 % (0-4.5); HEMATOCRIT 36.8 % (32.4-45.2); HEMOGLOBIN 12.1 GM/dL (10.7-15.3); LYMPH % 18.3 % (8-40); MCH 30.7 pg (25.7-33.7); MCHC 32.8 g/dl (32.0-36.0); MEAN CELL VOLUME 93.5 fl (80-96); MEAN PLT VOLUME 10.5 fl (7.5-11.1); MONO % 8.2 % (3.8-10.2); NEUT % 72.4 % (42.8-82.8); PLATELET COUNT 198 K/MM3 (134-434); RBC 3.94 M/mm3 (3.60-5.2); RDW 14.6 % (11.6-15.6); WHITE BLOOD COUNT 4.8 K/mm3 (4.0-10.0)
[2017-12-31 02:02] LABS: ACETONE SERUM POSITIVE MODERATE 2+ (NEGATIVE)
[2017-12-31 02:07] LABS: ALBUMIN 3.4 g/dl (3.4-5.0); ANION GAP 8 (8-16); BLOOD UREA NITROGEN 24 mg/dL (7-18); CALCIUM 9.7 mg/dL (8.5-10.1); CHLORIDE 111 mmol/L (98-107); CO2 27 mmol/L (21-32); POTASSIUM 4.9 mmol/L (3.5-5.1); SGOT/AST 16 U/L (15-37); SGPT/ALT 28 U/L (12-78); SODIUM 146 mmol/L (136-145)
[2017-12-31 02:10] LABS: ALK PHOS 86 U/L (45-117); BILIRUBIN,TOTAL 0.4 mg/dL (0.2-1.0); CREATININE 1.3 mg/dL (0.55-1.02); TOT PROT 7.8 g/dl (6.4-8.2)
[2017-12-31 02:13] LABS: GLUCOSE,RANDOM 761 mg/dL (74-106)
[2017-12-31] MEDS ORDERED: INSULIN REGULAR 100 UNITS in SODIUM CHLORIDE 99 ML IVPB SCH ×2 (02:15→06:14)
[2017-12-31] MEDS ORDERED: INSULIN REGULAR HUMAN 100 UNITS/ML *VIAL ONE (02:19)
[2017-12-31 04:05] LABS: ARTERIAL BLD GAS O2 SATURATION 97.9 % (90-98.9); ARTERIAL BLOOD GAS BASE EXCESS 2.7 meq/l (-2-2); ARTERIAL BLOOD GAS PO2 94.9 mmHg (80-100); ARTERIAL BLOOD GAS pH 7.43 (7.35-7.45)
[2017-12-31 04:06] LABS: ALLENS TEST POSITIVE
--- NOTE | 2017-12-31 05:43 | HP ---
CHIEF COMPLAINT: Elevated BS, Dysuira PCP: Dr. Darion Morales HISTORY OF PRESENT ILLNESS: 62 y/o woman PMH poorly controlled DM. Who presents to the ED with elevated BS and dysuria. 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 Patient reports increased thirst and urination x several days. She reports seeing her PCP recently with no change to her medication regimen. Patient denies fever, chills , cough, SOB, CP, palpitations, AP, N/V/D, constipation. ER course was notable for: (1) Glucose 761 (2) Na 146 (3) Serum Ketones- positive +2 Recent Travel: None PAST MEDICAL HISTORY: See HPI PAST SURGICAL HISTORY: See HPI Social History: Smoking: Never Alcohol: None Drugs: None Family History: Mother: Diabetes, from Diabetes complications Allergies No Known Allergies Allergy (Verified 12/30/17 23:23) HOME MEDICATIONS: Home Medications Medication Instructions Recorded Aspirin Coated [Ecotrin -] 81 mg PO DAILY tablet.ec 06/28/17 Insulin Aspart [Novolog Flexpen] 10 unit SQ AC 11/01/17 Insulin Detemir [Levemir Flextouch] 14 unit SQ AM 11/01/17 REVIEW OF SYSTEMS CONSTITUTIONAL: Absent: fever, chills, diaphoresis, generalized weakness, malaise, loss of appetite, weight change HEENT: Absent: rhinorrhea, nasal congestion, throat pain, throat swelling, difficulty swallowing, mouth swelling, ear pain, eye pain, visual changes CARDIOVASCULAR: Absent: chest pain, syncope, palpitations, irregular heart rate, lightheadedness , peripheral edema RESPIRATORY: Absent: cough, shortness of breath, dyspnea with exertion, orthopnea, wheezing, stridor, hemoptysis GASTROINTESTINAL: Absent: abdominal pain, abdominal distension, nausea, vomiting, diarrhea, constipation, melena, hematochezia GENITOURINARY: dysuria, frequency Absent: urgency, hesitancy, hematuria, flank pain, genital pain MUSCULOSKELETAL: right foot pain Absent: myalgia, arthralgia, joint swelling, back pain, neck pain SKIN: Absent: rash, itching, pallor HEMATOLOGIC/IMMUNOLOGIC: Absent: easy bleeding, easy bruising, lymphadenopathy, frequent infections ENDOCRINE: Absent: unexplained weight gain, unexplained weight loss, heat intolerance, cold intolerance NEUROLOGIC: Absent: headache, focal weakness or paresthesias, dizziness, unsteady gait, seizure, mental status changes, bladder or bowel incontinence PSYCHIATRIC: Absent: anxiety, depression, suicidal or homicidal ideation, hallucinations. PHYSICAL EXAMINATION Vital Signs - 24 hr 12/30/17 12/31/17 23:00 05:30 Temperature 97.6 F 98.3 F Pulse Rate 89 Pulse Rate [ 98 H Left Radial] Respiratory 20 18 Rate Blood Pressure 149/83 Blood Pressure 134/85 [Right Arm] O2 Sat by Pulse 96 99 Oximetry (%) GENERAL: Awake, alert, and fully oriented, in no acute distress. HEAD: Normal with no signs of trauma. EYES: Pupils equal, round and reactive to light, extraocular movements intact, sclera anicteric, conjunctiva clear. No lid lag. EARS, NOSE, THROAT: Ears normal, nares patent, oropharynx clear without exudates. Dry mucous membranes. NECK: Normal range of motion, supple without lymphadenopathy, JVD, or masses. LUNGS: Breath sounds equal, clear to auscultation bilaterally. No wheezes, and no crackles. No accessory muscle use. HEART: Regular rate and rhythm, normal S1 and S2 without murmur, rub or gallop. ABDOMEN: lower abdominal tenderness. soft, not distended, normoactive bowel sounds, no guarding, no rebound, no masses. No hepatomegaly or splenomegaly. MUSCULOSKELETAL: Normal range of motion at all joints. Nobony deformities or tenderness. No CVA tenderness. UPPER EXTREMITIES: 2+ pulses, warm, well-perfused. No cyanosis. No clubbing. No peripheral edema. LOWER EXTREMITIES: Right foot cool to touch, partial amputation of R-toes #2,3. 2+ pulses, warm to left foot well-perfused. No calf tenderness. No peripheral edema. NEUROLOGICAL: Cranial nerves II-XII intact. Normal speech. Gait not observed. PSYCHIATRIC: Cooperative. Good eye contact. Appropriate mood and affect. SKIN: Warm, dry, normal turgor, no rashes or lesions noted, normal capillary refill. Laboratory Results - last 24 hr 12/30/17 12/31/17 12/31/17 23:50 01:15 01:15 WBC 4.8 RBC 3.94 Hgb 12.1 Hct 36.8 D MCV 93.5 MCH 30.7 MCHC 32.8 RDW 14.6 Plt Count 198 D MPV 10.5 Absolute Neuts (auto) 3.5 Neutrophils % 72.4 D Lymphocytes % 18.3 D Monocytes % 8.2 Eosinophils % 0.5 Basophils % 0.6 Nucleated RBC % 0 Puncture Site ABG pH ABG pCO2 at Pt Temp ABG pO2 at Pt Temp ABG HCO3 ABG O2 Sat (Measured) ABG O2 Content ABG Base Excess Jd Test Oxygen Flow Rate Sodium 146 H Potassium 4.9 Chloride 111 H Carbon Dioxide 27 Anion Gap 8 BUN 24 H Creatinine 1.3 H Creat Clearance w eGFR 41.24 Random Glucose 761 H* Calcium 9.7 Total Bilirubin 0.4 AST 16 ALT 28 Alkaline Phosphatase 86 Total Protein 7.8 Albumin 3.4 Urine Color Colorless Urine Appearance Clear Urine pH 6.0 Ur Specific [place] 1.023 Urine Protein Negative Urine Glucose (UA) 3+ H Urine Ketones Trace H Urine Blood Negative Urine Nitrite Negative Urine Bilirubin Negative Urine Urobilinogen Negative Ur Leukocyte Esterase Negative Acetone, Qual Positive moderate 2+ H 12/31/17 02:47 WBC RBC Hgb Hct MCV MCH MCHC RDW Plt Count MPV Absolute Neuts (auto) Neutrophils % Lymphocytes % Monocytes % Eosinophils % Basophils % Nucleated RBC % Puncture Site Right radial ABG pH 7.43 ABG pCO2 at Pt Temp 41.0 ABG pO2 at Pt Temp 94.9 ABG HCO3 26.8 H ABG O2 Sat (Measured) 97.9 ABG O2 Content 17.8 ABG Base Excess 2.7 H Jd Test Positive Oxygen Flow Rate Room air Sodium Potassium Chloride Carbon Dioxide Anion Gap BUN Creatinine Creat Clearance w eGFR Random Glucose Calcium Total Bilirubin AST ALT Alkaline Phosphatase Total Protein Albumin Urine Color Urine Appearance Urine pH Ur Specific [place] Urine Protein Urine Glucose (UA) Urine Ketones Urine Blood Urine Nitrite Urine Bilirubin Urine Urobilinogen Ur Leukocyte Esterase Acetone, Qual ASSESSMENT/PLAN: 62 y/o woman PMH of: poorly controlled DM. Admitted to ICU for Hyperosmolar Hyperglycemic Nonketotic Syndrome, ALEX, for further evaluation of their emergent condition. Problem List - Problem (1) Type 2 diabetes mellitus with hyperosmolarity without nonketotic hyperglycemic-hyperosmolar coma ([facility]) Assessment/Plan: - Likely secondary to poorly controlled DM - Admit to ICU - Cardiac monitoring - Insulin Drip started in ED will continue until glucose < 200, then change to D51/2NS - BMP Q4H - Appreciate Anaesthetic Technician consult - Appreciate Endocrinology consult - HgbA1c in am - RD consult - Neuro checks Code(s): E11.00 - TYPE 2 DIAB W HYPROSM W/O NONKET HYPRGLY-HYPROS COMA ([facility]) (2) Acute renal failure Assessment/Plan: - Likely acute on chronic - Cr 1.3 at baseline - NS bolus given in ED - Repeat BMP in am - Consider Nephrology consult if condition worsens Code(s): N17.9 - ACUTE KIDNEY FAILURE, UNSPECIFIED (3) Right foot pain Assessment/Plan: - Likely secondary to microvascular disease - Appreciate Vascular consult - Neurovascular checks Code(s): M79.671 - PAIN IN RIGHT FOOT (4) DVT prophylaxis Assessment/Plan: - OOB - SCDs - Heparin SQ Code(s): FQH3817 - Visit type - Emergency Visit Emergency Visit: Yes ED Registration Date: 12/30/17 Care time: The patient presented to the Emergency Department on the above date and was hospitalized for further evaluation of their emergent condition. - New Patient This patient is new to me today: Yes Date on this admission: 12/31/17 - Critical Care Critical Care patient: Yes Total Critical Care Time (in minutes): 40 Critical Care Statement: The care of this patient involved high complexity decision making to prevent further life threatening deterioration of the patient 's condition and/or to evaluate & treat vital organ system(s) failure or risk of failure. Hospitalist Screening - Colonoscopy Questionnaire Colonoscopy Questionnaire: Colonoscopy Questionnaire - Patient: 50 - 75 years old and never had a screening colonoscopy: Unknown History of colon or rectal polyps, or CA: Unknown History of IBD, Crohn's disease or UC: Unknown History of abdominal radiation therapy as a child: Unknown - Relative: 1 with colon or rectal CA, or polyps at age 60 or younger: Unknown Colon or rectal CA diagnosed at age 45 or younger: Unknown Multiple relatives with colon or rectal CA: Unknown - Outcome: Screening Result: Negative Screen
--- NOTE | 2017-12-31 06:14 | CONSULT ---
Consultation: REQUESTING PROVIDER: CONSULT REQUEST: We have been asked to medically evaluate this patient for ( specify). HISTORY OF PRESENT ILLNESS: Briefly, this is a 62 yo F with PMH of IDDM2 (multiple prior admissions for DKA ) and HTN, who presents due to 4 days of elevated sugars at home, abd pain and nausea. She complains of associated polyuria and polydipsia, found to have gluc 700 and acetone 2+ but no gap. She also complains of pain and numbness in her R toes/distal foot x 4 days. Her R toes appear partially amputated, however she states it happened over time and she never had surgery. Her sugars have been creeping up to 300-400 from baseline of 110 despite her usual Insulin regimen. She denies changes in diet or recent illness. She last checked in with PCP 2 w ago. Denies f/c, vomiting, diarrhea, CP, cough, SOB, palpitations. She reports occasional blood tinged stools. REVIEW OF SYSTEMS: CONSTITUTIONAL: Absent: fever, chills HEENT: Absent: rhinorrhea, nasal congestion, throat pain CARDIOVASCULAR: Absent: chest pain, syncope, palpitations, peripheral edema RESPIRATORY: Absent: cough, shortness of breath, hemoptysis GASTROINTESTINAL: Absent: abdominal distension, vomiting, diarrhea, constipation, melena, hematochezia GENITOURINARY: Absent: dysuria, flank pain MUSCULOSKELETAL: Absent: back pain, neck pain SKIN: Absent: rash, itching, pallor HEMATOLOGIC/IMMUNOLOGIC: Absent: frequent infections ENDOCRINE: Absent: heat intolerance, cold intolerance NEUROLOGIC: Absent: headache, focal weakness or paresthesias PSYCHIATRIC: Absent: anxiety, depression PHYSICAL EXAMINATION Vital Signs - 24 hr 12/30/17 12/31/17 23:00 05:30 Temperature 97.6 F 98.3 F Pulse Rate 89 Pulse Rate [ 98 H Left Radial] Respiratory 20 18 Rate Blood Pressure 149/83 Blood Pressure 134/85 [Right Arm] O2 Sat by Pulse 96 99 Oximetry (%) GENERAL: Awake, alert, and fully oriented, in no mild distress. HEAD: Normal with no signs of trauma. EYES: Pupils equal, round and reactive to light, extraocular movements intact, sclera anicteric, conjunctiva clear. No lid lag. EARS, Moist mucous membranes. NECK: supple LUNGS: Breath sounds equal, clear to auscultation bilaterally. HEART: Regular rate and rhythm, normal S1 and S2 ABDOMEN: Soft,moderately tender in pelvic region, not distended, normoactive bowel sounds, no guarding, no rebound, no masses. MUSCULOSKELETAL: No CVA tenderness. UPPER EXTREMITIES: 2+ pulses, warm, well-perfused. No peripheral edema. LOWER EXTREMITIES: L foot warm 2+ pulse, and well perfused. R foot 2+ DP but cool, toes deformed and missing nail beds, skin exhibits slight dark discoloration, distal foot is moderately painful. No peripheral edema. NEUROLOGICAL: Cranial nerves II-XII grossly intact. Normal speech. PSYCHIATRIC: Cooperative. Good eye contact. Appropriate mood and affect. SKIN: Warm, dry Laboratory Results - last 24 hr 12/30/17 12/31/17 12/31/17 23:50 01:15 01:15 WBC 4.8 RBC 3.94 Hgb 12.1 Hct 36.8 D MCV 93.5 MCH 30.7 MCHC 32.8 RDW 14.6 Plt Count 198 D MPV 10.5 Absolute Neuts (auto) 3.5 Neutrophils % 72.4 D Lymphocytes % 18.3 D Monocytes % 8.2 Eosinophils % 0.5 Basophils % 0.6 Nucleated RBC % 0 Puncture Site ABG pH ABG pCO2 at Pt Temp ABG pO2 at Pt Temp ABG HCO3 ABG O2 Sat (Measured) ABG O2 Content ABG Base Excess Jd Test Oxygen Flow Rate Sodium 146 H Potassium 4.9 Chloride 111 H Carbon Dioxide 27 Anion Gap 8 BUN 24 H Creatinine 1.3 H Creat Clearance w eGFR 41.24 POC Glucometer Random Glucose 761 H* Calcium 9.7 Total Bilirubin 0.4 AST 16 ALT 28 Alkaline Phosphatase 86 Total Protein 7.8 Albumin 3.4 Urine Color Colorless Urine Appearance Clear Urine pH 6.0 Ur Specific [place] 1.023 Urine Protein Negative Urine Glucose (UA) 3+ H Urine Ketones Trace H Urine Blood Negative Urine Nitrite Negative Urine Bilirubin Negative Urine Urobilinogen Negative Ur Leukocyte Esterase Negative Acetone, Qual Positive moderate 2+ H 12/31/17 12/31/17 02:47 05:25 WBC RBC Hgb Hct MCV MCH MCHC RDW Plt Count MPV Absolute Neuts (auto) Neutrophils % Lymphocytes % Monocytes % Eosinophils % Basophils % Nucleated RBC % Puncture Site Right radial ABG pH 7.43 ABG pCO2 at Pt Temp 41.0 ABG pO2 at Pt Temp 94.9 ABG HCO3 26.8 H ABG O2 Sat (Measured) 97.9 ABG O2 Content 17.8 ABG Base Excess 2.7 H Jd Test Positive Oxygen Flow Rate Room air Sodium Potassium Chloride Carbon Dioxide Anion Gap BUN Creatinine Creat Clearance w eGFR POC Glucometer [id number] Random Glucose Calcium Total Bilirubin AST ALT Alkaline Phosphatase Total Protein Albumin Urine Color Urine Appearance Urine pH Ur Specific [place] Urine Protein Urine Glucose (UA) Urine Ketones Urine Blood Urine Nitrite Urine Bilirubin Urine Urobilinogen Ur Leukocyte Esterase Acetone, Qual Active Medications Generic Name Dose Route Start Last Admin Trade Name Freq PRN Reason Stop Dose Admin Aspirin 81 mg 12/31/17 10:00 Asa - PO DAILY JULIANA Chlorhexidine Gluconate 1 applic 12/31/17 22:00 Hibiclens For Decolonization - TP HS JULIANA Heparin Sodium (Porcine) 5,000 unit 12/31/17 06:00 Heparin - SQ TID JULIANA Insulin Human Regular 100 100 mls @ 10 mls/hr 12/31/17 02:15 12/31/17 02:15 units/ Sodium Chloride IVPB 10 units/hr TITR JULIANA 10 mls/hr Administration Protocol 10 UNITS/HR Mupirocin 1 applic 12/31/17 10:00 Bactroban Ointment (For Decolonization) - NS 01/05/18 09:59 BID [facility] ASSESSMENT/PLAN: Briefly, this is a 62 yo F with PMH of IDDM2 (multiple prior admissions for DKA ) and HTN, who presents due to 4 days of elevated sugars at home, abd pain and nausea. She complains of associated polyuria and polydipsia, found to have gluc 700 and acetone 2+ but no gap. A/P HHS more likely than DKA ALEX pre renal Ischemic r foot HTN-not on meds -admission glucose 761; insulin gtt w/o bolus started in ED. s/p 1 L NS -gap 9wnl, k 4.9 , bicarb 27 stable -By the time patient brought to ICU, fingerstick 199; start d5ns and start Levemir 14 u bridging with insulin gtt at a lower rate, add 1 K rider; f/u labs. Consider changing to d51/2 ns for better renal outcomes. -creat 1.3 from baseline 0.8-pre renal; expect improvement with IVF -Vascular surgery consult for R foot ischemia. this is likely microvascular disease aggravated by hyperglycemia and volume contraction since 2+ DP is present. Expect some improvement with antiplatelet and IV hydration. Vascular consult. Consider hep gtt although patient history is consistent with possible bleeding hemorrhoids. -SCD's, early ambulation -NPO. consider feeling once off the insulin gtt Dispo: We will continue to follow the patient. Thank you for this consultative opportunity. Problem List - Problems (1) Right foot pain Code(s): M79.671 - PAIN IN RIGHT FOOT (2) DVT prophylaxis Code(s): DEH5378 - (3) Dehydration with hypernatremia Code(s): E87.0 - HYPEROSMOLALITY AND HYPERNATREMIA (4) Diabetes mellitus with hyperosmolarity, with long-term current use of insulin Code(s): E11.00 - TYPE 2 DIAB W HYPROSM W/O NONKET HYPRGLY-HYPROS COMA ([facility]); Z79.4 - [facility] (CURRENT) USE OF INSULIN (5) HTN (hypertension) Code(s): I10 - ESSENTIAL (PRIMARY) HYPERTENSION (6) Hyperglycemia due to type 2 diabetes mellitus Code(s): E11.65 - TYPE 2 DIABETES MELLITUS WITH HYPERGLYCEMIA (7) Hypernatremia Code(s): E87.0 - HYPEROSMOLALITY AND HYPERNATREMIA (8) T2DM (type 2 diabetes mellitus) Code(s): E11.9 - TYPE 2 DIABETES MELLITUS WITHOUT COMPLICATIONS (9) Ischemic foot Code(s): I99.8 - OTHER DISORDER OF CIRCULATORY SYSTEM Visit type - Emergency Visit Emergency Visit: No - New Patient This patient is new to me today: Yes Date on this admission: 12/31/17 - Critical Care Critical Care patient: Yes Total Critical Care Time (in minutes): 45 Critical Care Statement: The care of this patient involved high complexity decision making to prevent further life threatening deterioration of the patient 's condition and/or to evaluate & treat vital organ system(s) failure or risk of failure.
[2017-12-31] MEDS ORDERED: SODIUM CHLORIDE 1,000 ML IV SCH (06:45)
[2017-12-31] MEDS ORDERED: DEXTROSE 5%-NORMAL SALINE 1,000 ML IV SCH (06:45)
[2017-12-31] MEDS ORDERED: KCL 10 MEQ IVPB 10 MEQ/100 ML INFUS.BAG IVPB SCH (06:45)
[2017-12-31] MEDS: HEPARIN NA (PORCINE) 5,000 UNITS/ML 1ML VIAL SQ SCH ×3 (06:51→22:03)
[2017-12-31 06:59] VITALS: BMI 33.5
[2017-12-31] MEDS ORDERED: INSULIN (LEVEMIR) 100 UNITS/ML UNITS SQ SCH (07:00)
[2017-12-31 08:32] LABS: BASO % 0.4 % (0-2.0); EOS % 0.6 % (0-4.5); HEMOGLOBIN 12.7 GM/dL (10.7-15.3); LYMPH % 18.4 % (8-40); MCH 30.4 pg (25.7-33.7); MCHC 33.4 g/dl (32.0-36.0); MEAN CELL VOLUME 90.9 fl (80-96); MEAN PLT VOLUME 10.1 fl (7.5-11.1); MONO % 9.4 % (3.8-10.2); NEUT % 71.2 % (42.8-82.8); PLATELET COUNT 224 K/MM3 (134-434); RBC 4.18 M/mm3 (3.60-5.2); RDW 14.4 % (11.6-15.6); WHITE BLOOD COUNT 7.4 K/mm3 (4.0-10.0)
[2017-12-31 08:37] LABS: CHLORIDE 119 mmol/L (98-107); POTASSIUM 3.7 mmol/L (3.5-5.1); SODIUM 157 mmol/L (136-145)
[2017-12-31 08:45] LABS: ANION GAP 5 (8-16); BLOOD UREA NITROGEN 21 mg/dL (7-18); CALCIUM 10.6 mg/dL (8.5-10.1); CO2 33 mmol/L (21-32); CREATININE 1.1 mg/dL (0.55-1.02); GLUCOSE,RANDOM 136 mg/dL (74-106); MAGNESIUM 2.5 mg/dL (1.8-2.4); PHOSPHOROUS 1.5 mg/dL (2.5-4.9)
[2017-12-31] MEDS ORDERED: SODIUM CHLORIDE 0.45% 1,000 ML IV SCH ×2 (09:45→17:45)
[2017-12-31] MEDS ORDERED: MUPIROCIN 2% TOPICAL OINTMENT FOR DECOLONIZATION NS SCH (10:00)
[2017-12-31] MEDS ORDERED: ASPIRIN 81 MG CHEWABLE TABLETS PO SCH (10:00)
--- NOTE | 2017-12-31 10:08 | PN ---
Teaching Attending Note Name of Resident: Josh Woodall ATTENDING PHYSICIAN STATEMENT I saw and evaluated the patient. I reviewed the resident's note and discussed the case with the resident. I agree with the resident's findings and plan as documented. SUBJECTIVE: Patient seen and examined in the ICU. Awake and alert. Remains on IV Insulin @ 1 unit / hour. No CP or SOB. Some discomfort in her right toes/foot. AG remains closed. Intake & Output 12/28/17 12/29/17 12/30/17 12/31/17 23:59 23:59 23:59 23:59 Weight 150 lb 200 lb 11.2 oz Last Vital Signs Temp Pulse Resp BP Pulse Ox 97.8 F 82 16 155/94 99 12/31/17 09:00 12/31/17 09:00 12/31/17 09:00 12/31/17 09:00 12/31/17 09:00 Active Medications Aspirin (Asa -) 81 mg PO DAILY [facility] Last Admin: 12/31/17 09:49 Dose: 81 mg Chlorhexidine Gluconate (Hibiclens For Decolonization -) 1 applic TP HS [facility] Heparin Sodium (Porcine) (Heparin -) 5,000 unit SQ TID [facility] Last Admin: 12/31/17 06:51 Dose: 5,000 unit Insulin Human Regular 100 (units/ Sodium Chloride) 100 mls @ 4 mls/hr IVPB TITR [facility]; Protocol Last Admin: 12/31/17 06:51 Dose: 4 units/hr, 4 mls/hr Sodium Chloride (1/2 Normal Saline) 1,000 mls @ 100 mls/hr IV ASDIR [facility] Last Admin: 12/31/17 09:50 Dose: 100 mls/hr Insulin Detemir (Levemir Vial) 14 units SQ AM [facility] Last Admin: 12/31/17 06:52 Dose: 14 units Mupirocin (Bactroban Ointment (For Decolonization) -) 1 applic NS BID [facility] Stop: 01/05/18 09:59 Last Admin: 12/31/17 09:50 Dose: 1 applic GENERAL: Awake, alert, and fully oriented, NAD HEAD: Normal with no signs of trauma. EYES: Pupils equal, round and reactive to light, extraocular movements intact, sclera anicteric, conjunctiva clear. No lid lag. EARS, Moist mucous membranes. NECK: supple LUNGS: Breath sounds equal, clear to auscultation bilaterally. HEART: Regular rate and rhythm, normal S1 and S2 ABDOMEN: Soft, NT, ND, (+) BS, no guarding, no rebound, no masses. MUSCULOSKELETAL: No CVA tenderness. UPPER EXTREMITIES: 2+ pulses, warm, well-perfused. No peripheral edema. LOWER EXTREMITIES: L foot warm 2+ pulse, and well perfused. R foot 2+ DP but cool, toes deformed and missing nail beds, skin exhibits slight dark discoloration. NEUROLOGICAL: Non-focal. PSYCHIATRIC: Cooperative. Good eye contact. Appropriate mood and affect. SKIN: Warm, dry Laboratory Results - last 24 hr 12/30/17 12/31/17 12/31/17 23:50 01:15 01:15 WBC 4.8 RBC 3.94 Hgb 12.1 Hct 36.8 D MCV 93.5 MCH 30.7 MCHC 32.8 RDW 14.6 Plt Count 198 D MPV 10.5 Absolute Neuts (auto) 3.5 Neutrophils % 72.4 D Lymphocytes % 18.3 D Monocytes % 8.2 Eosinophils % 0.5 Basophils % 0.6 Nucleated RBC % 0 Puncture Site ABG pH ABG pCO2 at Pt Temp ABG pO2 at Pt Temp ABG HCO3 ABG O2 Sat (Measured) ABG O2 Content ABG Base Excess Jd Test Oxygen Flow Rate Sodium 146 H Potassium 4.9 Chloride 111 H Carbon Dioxide 27 Anion Gap 8 BUN 24 H Creatinine 1.3 H Creat Clearance w eGFR 41.24 POC Glucometer Random Glucose 761 H* Hemoglobin A1c % Calcium 9.7 Phosphorus Magnesium Total Bilirubin 0.4 AST 16 ALT 28 Alkaline Phosphatase 86 Total Protein 7.8 Albumin 3.4 Urine Color Colorless Urine Appearance Clear Urine pH 6.0 Ur Specific [place] 1.023 Urine Protein Negative Urine Glucose (UA) 3+ H Urine Ketones Trace H Urine Blood Negative Urine Nitrite Negative Urine Bilirubin Negative Urine Urobilinogen Negative Ur Leukocyte Esterase Negative Acetone, Qual Positive moderate 2+ H 12/31/17 12/31/17 12/31/17 02:47 05:25 07:45 WBC 7.4 RBC 4.18 Hgb 12.7 Hct 38.0 MCV 90.9 MCH 30.4 MCHC 33.4 RDW 14.4 Plt Count 224 MPV 10.1 Absolute Neuts (auto) 5.3 Neutrophils % 71.2 Lymphocytes % 18.4 Monocytes % 9.4 Eosinophils % 0.6 Basophils % 0.4 Nucleated RBC % 0 Puncture Site Right radial ABG pH 7.43 ABG pCO2 at Pt Temp 41.0 ABG pO2 at Pt Temp 94.9 ABG HCO3 26.8 H ABG O2 Sat (Measured) 97.9 ABG O2 Content 17.8 ABG Base Excess 2.7 H Jd Test Positive Oxygen Flow Rate Room air Sodium Potassium Chloride Carbon Dioxide Anion Gap BUN Creatinine Creat Clearance w eGFR POC Glucometer [phone] Random Glucose Hemoglobin A1c % Calcium Phosphorus Magnesium Total Bilirubin AST ALT Alkaline Phosphatase Total Protein Albumin Urine Color Urine Appearance Urine pH Ur Specific [place] Urine Protein Urine Glucose (UA) Urine Ketones Urine Blood Urine Nitrite Urine Bilirubin Urine Urobilinogen Ur Leukocyte Esterase Acetone, Qual 12/31/17 12/31/17 07:45 07:45 WBC RBC Hgb Hct MCV MCH MCHC RDW Plt Count MPV Absolute Neuts (auto) Neutrophils % Lymphocytes % Monocytes % Eosinophils % Basophils % Nucleated RBC % Puncture Site ABG pH ABG pCO2 at Pt Temp ABG pO2 at Pt Temp ABG HCO3 ABG O2 Sat (Measured) ABG O2 Content ABG Base Excess Jd Test Oxygen Flow Rate Sodium 157 H Potassium 3.7 Chloride 119 H Carbon Dioxide 33 H Anion Gap 5 L BUN 21 H Creatinine 1.1 H Creat Clearance w eGFR 50.01 POC Glucometer Random Glucose 136 H Hemoglobin A1c % 13.4 H Calcium 10.6 H Phosphorus 1.5 L Magnesium 2.5 H Total Bilirubin AST ALT Alkaline Phosphatase Total Protein Albumin Urine Color Urine Appearance Urine pH Ur Specific [place] Urine Protein Urine Glucose (UA) Urine Ketones Urine Blood Urine Nitrite Urine Bilirubin Urine Urobilinogen Ur Leukocyte Esterase Acetone, Qual Problem List - Problems (1) Right foot pain Code(s): M79.671 - PAIN IN RIGHT FOOT (2) DVT prophylaxis Code(s): PQV9055 - (3) Dehydration with hypernatremia Code(s): E87.0 - HYPEROSMOLALITY AND HYPERNATREMIA (4) Diabetes mellitus with hyperosmolarity, with long-term current use of insulin Code(s): E11.00 - TYPE 2 DIAB W HYPROSM W/O NONKET HYPRGLY-HYPROS COMA ([facility]); Z79.4 - [employer] (CURRENT) USE OF INSULIN (5) HTN (hypertension) Code(s): I10 - ESSENTIAL (PRIMARY) HYPERTENSION (6) Hyperglycemia due to type 2 diabetes mellitus Code(s): E11.65 - TYPE 2 DIABETES MELLITUS WITH HYPERGLYCEMIA (7) Hypernatremia Code(s): E87.0 - HYPEROSMOLALITY AND HYPERNATREMIA (8) T2DM (type 2 diabetes mellitus) Code(s): E11.9 - TYPE 2 DIABETES MELLITUS WITHOUT COMPLICATIONS (9) Ischemic foot Code(s): I99.8 - OTHER DISORDER OF CIRCULATORY SYSTEM PLAN: D/C IV Insulin drip SQ Insulin coverage Noted vascular consult was called to evaluate right foot O2 as needed VTE prophylaxis Follow BGM PO as tolerated Floor Dr Mccabe Critical care time spent in reviewing chart, evaluating patient and formulating plan - 36 minutes.
--- NOTE | 2017-12-31 10:09 | EKG ---
Test Reason : Blood Pressure : / mmHG Vent. Rate : 102 BPM Atrial Rate : 102 BPM P-R Int : 152 ms QRS Dur : 078 ms QT Int : 286 ms P-R-T Axes : 061 014 056 degrees QTc Int : 372 ms SINUS TACHYCARDIA POSSIBLE LEFT ATRIAL ENLARGEMENT POSSIBLE ANTERIOR INFARCT , AGE UNDETERMINED ABNORMAL ECG WHEN COMPARED WITH ECG OF 28-NOV-2017 17:21, NONSPECIFIC T WAVE ABNORMALITY NOW EVIDENT IN INFERIOR LEADS Confirmed by EMANUEL PIERSON, PATRICIO ([id number]) on 12/31/2017 10:09:34 AM Referred By: Confirmed By:PATRICIO CASTELLANOS MD
--- NOTE | 2017-12-31 10:45 | PN ---
Progress Note (short form) - Note Progress Note: Vascular Surgery Pt seen and examined Came in for hyperglycemia. Complaining of right foot pain for over a year. On exam Pt has bl DP pulses palpable. Pain likely neuropathic pain from diabetes. [facility] medical management and neurology eval for neuropathic pain. Miguel Tellez DO
[2017-12-31] MEDS ORDERED: ACETAMINOPHEN 325 MG TABLET (FP) PO PRN ×2 (11:13→17:06)
--- NOTE | 2017-12-31 11:22 | PN ---
Progress Note, Physician Chief Complaint: Hyperglycemia History of Present Illness: NAD In bed C/o abdominal and BL foot pain Seen by Vascular surgery- pulses +3, tenderness on palpation of BL foot, likely 2/2 to Diabetic Neuropathy Doesn't know her medications, [place] [facility] closed today Spoke to daughter about the patient - Current Medication List Current Medications: Active Medications Acetaminophen (Tylenol -) 650 mg PO Q4H PRN PRN Reason: PAIN OR FEVER Aspirin (Asa -) 81 mg PO DAILY [facility] Last Admin: 12/31/17 09:49 Dose: 81 mg Chlorhexidine Gluconate (Hibiclens For Decolonization -) 1 applic TP [facility] Gabapentin (Neurontin -) 200 mg PO TID [facility] Heparin Sodium (Porcine) (Heparin -) 5,000 unit SQ TID [facility] Last Admin: 12/31/17 06:51 Dose: 5,000 unit Insulin Human Regular 100 (units/ Sodium Chloride) 100 mls @ 4 mls/hr IVPB TITR [facility]; Protocol Last Admin: 12/31/17 06:51 Dose: 4 units/hr, 4 mls/hr Sodium Chloride (1/2 Normal Saline) 1,000 mls @ 100 mls/hr IV ASDIR [facility] Last Admin: 12/31/17 09:50 Dose: 100 mls/hr Insulin Detemir (Levemir Vial) 14 units SQ AM [facility] Last Admin: 12/31/17 06:52 Dose: 14 units Mupirocin (Bactroban Ointment (For Decolonization) -) 1 applic NS BID [facility] Stop: 01/05/18 09:59 Last Admin: 12/31/17 09:50 Dose: 1 applic Rosuvastatin Calcium (Crestor -) 40 mg PO [facility] - Objective Vital Signs: Vital Signs Temperature 97.8 F 12/31/17 09:00 Pulse Rate 82 12/31/17 09:00 Respiratory Rate 16 12/31/17 09:00 Blood Pressure 155/94 12/31/17 09:00 O2 Sat by Pulse Oximetry (%) 99 12/31/17 09:00 Constitutional: Yes: Well Nourished, No Distress, Calm Cardiovascular: Yes: Regular Rate and Rhythm Respiratory: Yes: Regular Gastrointestinal: Yes: Normal Bowel Sounds, Soft Musculoskeletal: Yes: Muscle Pain (BL feet) Extremities: Yes: WNL Edema: No Peripheral Pulses WNL: Yes Peripheral Pulses: Left Doralis Pedis: 3+, Right Dorsalis Pedis: 3+ Neurological: Yes: Alert, Oriented Psychiatric: Yes: Alert, Oriented Labs: CBC, BMP 12/31/17 07:45 12/31/17 07:45 Problem List - Problems (1) Diabetic neuropathy Assessment/Plan: -Start Gabapentin 200 mg po TID -Acetaminophen 650 mg po Q6 H PRN -Neurology consult -EMG outpatient? -B12 levels ordered Code(s): E11.40 - TYPE 2 DIABETES MELLITUS WITH DIABETIC NEUROPATHY, UNSP (2) Hyperglycemia due to type 2 diabetes mellitus Assessment/Plan: -Was on Insulin drip-discontinued -A1c 13.4 -BGM-ACHS -Diabetic low sodium diet -RD consult -On Levemir 50 units at home as per daughter, titrate levemir according to BGM, on 14 units at this time, drip discontinue short while ago -Endocrinology consult -Aspirin 81mg -Lipid profile ordered Code(s): E11.65 - TYPE 2 DIABETES MELLITUS WITH HYPERGLYCEMIA (3) CKD (chronic kidney disease) Assessment/Plan: -Nephrology consult -IVF -JOSSIE or an ARB as per nephrology Code(s): N18.9 - CHRONIC KIDNEY DISEASE, UNSPECIFIED (4) Hypernatremia Assessment/Plan: -likely 2/2 to hyperglycemia and free water loss -continue hypotonic fluid -labs in AM Code(s): E87.0 - HYPEROSMOLALITY AND HYPERNATREMIA Assessment/Plan see problem list DVT prophylaxis
--- NOTE | 2017-12-31 12:50 | CONSULT ---
Consult - text type - Consultation Consultation Note: Neurology CHIEF COMPLAINT: Elevated BS, Dysuira PCP: Dr. Darion Morales HISTORY OF PRESENT ILLNESS: 62 y/o woman PMH poorly controlled DM who presented to the ED with elevated BS and dysuria. Patient reported increased thirst and urination x several days. She reported seeing her PCP recently with no change to her medication regimen. Patient denied fever, chills, cough, SOB, CP, palpitations, AP, N/V/D, constipation. Her Glucose was 761 with Serum Ketones positive +2. She is ICU under critical care for DKA. I was consulted for evaluation diabetic neuropathy. She reports ongoing cold sensation in her distal lower extremities. Has been started on chilo 200 tid but will increase dose given her history of poorly controlled blood sugar. May not see relief right away and can take days to weeks to see benefit but will try. Explained this to patient and she endorsed understanding. Recent Travel: None PAST MEDICAL HISTORY: See HPI PAST SURGICAL HISTORY: See HPI Social History: Smoking: Never Alcohol: None Drugs: None Family History: Mother: Diabetes, from Diabetes complications Allergies No Known Allergies Allergy (Verified 12/30/17 23:23) HOME MEDICATIONS: Home Medications Medication Instructions Recorded Aspirin Coated [Ecotrin -] 81 mg PO DAILY tablet.ec 06/28/17 Insulin Aspart [Novolog Flexpen] 10 unit SQ AC 11/01/17 Insulin Detemir [Levemir Flextouch] 14 unit SQ AM 11/01/17 REVIEW OF SYSTEMS CONSTITUTIONAL: Absent: fever, chills, diaphoresis, generalized weakness, malaise, loss of appetite, weight change HEENT: Absent: rhinorrhea, nasal congestion, throat pain, throat swelling, difficulty swallowing, mouth swelling, ear pain, eye pain, visual changes CARDIOVASCULAR: Absent: chest pain, syncope, palpitations, irregular heart rate, lightheadedness , peripheral edema RESPIRATORY: Absent: cough, shortness of breath, dyspnea with exertion, orthopnea, wheezing, stridor, hemoptysis GASTROINTESTINAL: Absent: abdominal pain, abdominal distension, nausea, vomiting, diarrhea, constipation, melena, hematochezia GENITOURINARY: dysuria, frequency Absent: urgency, hesitancy, hematuria, flank pain, genital pain MUSCULOSKELETAL: right foot pain Absent: myalgia, arthralgia, joint swelling, back pain, neck pain SKIN: Absent: rash, itching, pallor HEMATOLOGIC/IMMUNOLOGIC: Absent: easy bleeding, easy bruising, lymphadenopathy, frequent infections ENDOCRINE: Absent: unexplained weight gain, unexplained weight loss, heat intolerance, cold intolerance NEUROLOGIC: Absent: headache, focal weakness or paresthesias, dizziness, unsteady gait, seizure, mental status changes, bladder or bowel incontinence PSYCHIATRIC: Absent: anxiety, depression, suicidal or homicidal ideation, hallucinations. PHYSICAL EXAMINATION Vital Signs - 24 hr 12/30/17 12/31/17 23:00 05:30 Temperature 97.6 F 98.3 F Pulse Rate 89 Pulse Rate [ 98 H Left Radial] Respiratory 20 18 Rate Blood Pressure 149/83 Blood Pressure 134/85 [Right Arm] O2 Sat by Pulse 96 99 Oximetry (%) GENERAL: Awake, alert, and fully oriented, in no acute distress. HEAD: Normal with no signs of trauma. EYES: Pupils equal, round and reactive to light, extraocular movements intact, sclera anicteric, conjunctiva clear. No lid lag. EARS, NOSE, THROAT: Ears normal, nares patent, oropharynx clear without exudates. Dry mucous membranes. NECK: Normal range of motion, supple without lymphadenopathy, JVD, or masses. LUNGS: Breath sounds equal, clear to auscultation bilaterally. No wheezes, and no crackles. No accessory muscle use. HEART: Regular rate and rhythm, normal S1 and S2 without murmur, rub or gallop. ABDOMEN: lower abdominal tenderness. soft, not distended, normoactive bowel sounds, no guarding, no rebound, no masses. No hepatomegaly or splenomegaly. MUSCULOSKELETAL: Normal range of motion at all joints. [place] deformities or tenderness. No CVA tenderness. UPPER EXTREMITIES: 2+ pulses, warm, well-perfused. No cyanosis. No clubbing. No peripheral edema. LOWER EXTREMITIES: Right foot cool to touch, partial amputation of R-toes #2,3. 2+ pulses, warm to left foot well-perfused. No calf tenderness. No peripheral edema. NEUROLOGICAL: Cranial nerves II-XII intact. Normal speech. Decreased PP in distal lower extremities. Gait deferred. PSYCHIATRIC: Cooperative. Good eye contact. Appropriate mood and affect. SKIN: Warm, dry, normal turgor, no rashes or lesions noted, normal capillary refill. Laboratory Results - last 24 hr 12/30/17 12/31/1718 23:50 01:15 01:15 WBC 4.8 RBC 3.94 Hgb 12.1 Hct 36.8 D MCV 93.5 MCH 30.7 MCHC 32.8 RDW 14.6 Plt Count 198 D MPV 10.5 Absolute Neuts (auto) 3.5 Neutrophils % 72.4 D Lymphocytes % 18.3 D Monocytes % 8.2 Eosinophils % 0.5 Basophils % 0.6 Nucleated RBC % 0 Puncture Site ABG pH ABG pCO2 at Pt Temp ABG pO2 at Pt Temp ABG HCO3 ABG O2 Sat (Measured) ABG O2 Content ABG Base Excess Jd Test Oxygen Flow Rate Sodium 146 H Potassium 4.9 Chloride 111 H Carbon Dioxide 27 Anion Gap 8 BUN 24 H Creatinine 1.3 H Creat Clearance w eGFR 41.24 Random Glucose 761 H* Calcium 9.7 Total Bilirubin 0.4 AST 16 ALT 28 Alkaline Phosphatase 86 Total Protein 7.8 Albumin 3.4 Urine Color Colorless Urine Appearance Clear Urine pH 6.0 Ur Specific [place] 1.023 Urine Protein Negative Urine Glucose (UA) 3+ H Urine Ketones Trace H Urine Blood Negative Urine Nitrite Negative Urine Bilirubin Negative Urine Urobilinogen Negative Ur Leukocyte Esterase Negative Acetone, Qual Positive moderate 2+ H 12/31/17 02:47 WBC RBC Hgb Hct MCV MCH MCHC RDW Plt Count MPV Absolute Neuts (auto) Neutrophils % Lymphocytes % Monocytes % Eosinophils % Basophils % Nucleated RBC % Puncture Site Right radial ABG pH 7.43 ABG pCO2 at Pt Temp 41.0 ABG pO2 at Pt Temp 94.9 ABG HCO3 26.8 H ABG O2 Sat (Measured) 97.9 ABG O2 Content 17.8 ABG Base Excess 2.7 H Jd Test Positive Oxygen Flow Rate Room air Sodium Potassium Chloride Carbon Dioxide Anion Gap BUN Creatinine Creat Clearance w eGFR Random Glucose Calcium Total Bilirubin AST ALT Alkaline Phosphatase Total Protein Albumin Urine Color Urine Appearance Urine pH Ur Specific [place] Urine Protein Urine Glucose (UA) Urine Ketones Urine Blood Urine Nitrite Urine Bilirubin Urine Urobilinogen Ur Leukocyte Esterase Acetone, Qual ASSESSMENT/PLAN: 62 y/o woman PMH poorly controlled DM who presented to the ED with elevated BS and dysuria. Patient reported increased thirst and urination x several days. She reported seeing her PCP recently with no change to her medication regimen. Patient denied fever, chills, cough, SOB, CP, palpitations, AP, N/V/D, constipation. Her Glucose was 761 with Serum Ketones positive +2. She is ICU under critical care for DKA. I was consulted for evaluation diabetic neuropathy. She reports ongoing cold sensation in her distal lower extremities. Has been started on chilo 200 tid but will increase dose given her history of poorly controlled blood sugar. May not see relief right away and can take days to weeks to see benefit but will try. Explained this to patient and she endorsed understanding. Tight glycemic control needed, both inpatient and outpatient. Is on insulin and advised her to maintain euglycemic state. EMG can be done as outpatient though will initiate treatment. Endo follow up. Maintain hydration. Caution with ambulation. Monitor BP, maintain normotensive range.
[2017-12-31 13:24] LABS: CHOLESTEROL 235 mg/dL (50-200); HDL CHOLESTEROL 84 mg/dL (40-60); TRIGLYCERIDES 74 mg/dL (35-160)
[2017-12-31] MEDS ORDERED: GABAPENTIN 100 MG CAPSULE (FP) PO SCH (14:00)
[2017-12-31 15:12] LABS: ANION GAP 9 (8-16); BLOOD UREA NITROGEN 20 mg/dL (7-18); CALCIUM 9.4 mg/dL (8.5-10.1); CHLORIDE 112 mmol/L (98-107); CO2 27 mmol/L (21-32); CREATININE 1.2 mg/dL (0.55-1.02); POTASSIUM 4.4 mmol/L (3.5-5.1); SODIUM 148 mmol/L (136-145)
[2017-12-31 15:37] LABS: GLUCOSE,RANDOM 376 mg/dL (74-106)
--- NOTE | 2017-12-31 16:05 | PN ---
Physical Exam: SUBJECTIVE: Patient seen and examined OBJECTIVE: Vital Signs Period Temp Pulse Resp BP Sys/Haskins Pulse Ox Last 24 Hr 97.6 F-98.8 F 82-98 16-88 126-155/66-94 96-99 GENERAL: aaox3. c/o toe pain, extremities feel cool. HEAD: Normal with no signs of trauma. EYES: PERRL, extraocular movements intact, sclera anicteric, conjunctiva clear. No ptosis. ENT: Ears normal, nares patent, oropharynx clear without exudates, moist mucous membranes. NECK: Trachea midline, full range of motion, supple. LUNGS: Breath sounds equal, clear to auscultation bilaterally, no wheezes, no crackles, no accessory muscle use. HEART: RRR, -m/r/g, +s1,s2. ABDOMEN: BS +, no organomegaly, some abdominal discomfort. EXTREMITIES: 2+ dorsalis pedis b/l. Toes cool to touch b/l. NEUROLOGICAL: Cranial nerves II through XII grossly intact. Decreased sensation lower extremities PSYCH: Normal mood, normal affect. SKIN: Warm, dry, Laboratory Results - last 24 hr 12/30/17 12/31/17 12/31/17 23:50 01:15 01:15 WBC 4.8 RBC 3.94 Hgb 12.1 Hct 36.8 D MCV 93.5 MCH 30.7 MCHC 32.8 RDW 14.6 Plt Count 198 D MPV 10.5 Absolute Neuts (auto) 3.5 Neutrophils % 72.4 D Lymphocytes % 18.3 D Monocytes % 8.2 Eosinophils % 0.5 Basophils % 0.6 Nucleated RBC % 0 Puncture Site ABG pH ABG pCO2 at Pt Temp ABG pO2 at Pt Temp ABG HCO3 ABG O2 Sat (Measured) ABG O2 Content ABG Base Excess Jd Test Oxygen Flow Rate Sodium 146 H Potassium 4.9 Chloride 111 H Carbon Dioxide 27 Anion Gap 8 BUN 24 H Creatinine 1.3 H Creat Clearance w eGFR 41.24 POC Glucometer Random Glucose 761 H* Hemoglobin A1c % Lactic Acid Calcium 9.7 Phosphorus Magnesium Total Bilirubin 0.4 AST 16 ALT 28 Alkaline Phosphatase 86 Total Protein 7.8 Albumin 3.4 Triglycerides Cholesterol Total LDL Cholesterol HDL Cholesterol Vitamin B12 TSH Free T4 Urine Color Colorless Urine Appearance Clear Urine pH 6.0 Ur Specific [place] 1.023 Urine Protein Negative Urine Glucose (UA) 3+ H Urine Ketones Trace H Urine Blood Negative Urine Nitrite Negative Urine Bilirubin Negative Urine Urobilinogen Negative Ur Leukocyte Esterase Negative Acetone, Qual Positive moderate 2+ H 12/31/17 12/31/17 12/31/17 02:47 05:25 06:37 WBC RBC Hgb Hct MCV MCH MCHC RDW Plt Count MPV Absolute Neuts (auto) Neutrophils % Lymphocytes % Monocytes % Eosinophils % Basophils % Nucleated RBC % Puncture Site Right radial ABG pH 7.43 ABG pCO2 at Pt Temp 41.0 ABG pO2 at Pt Temp 94.9 ABG HCO3 26.8 H ABG O2 Sat (Measured) 97.9 ABG O2 Content 17.8 ABG Base Excess 2.7 H Jd Test Positive Oxygen Flow Rate Room air Sodium Potassium Chloride Carbon Dioxide Anion Gap BUN Creatinine Creat Clearance w eGFR POC Glucometer 299.54802 192.77421 Random Glucose Hemoglobin A1c % Lactic Acid Calcium Phosphorus Magnesium Total Bilirubin AST ALT Alkaline Phosphatase Total Protein Albumin Triglycerides Cholesterol Total LDL Cholesterol HDL Cholesterol Vitamin B12 TSH Free T4 Urine Color Urine Appearance Urine pH Ur Specific [place] Urine Protein Urine Glucose (UA) Urine Ketones Urine Blood Urine Nitrite Urine Bilirubin Urine Urobilinogen Ur Leukocyte Esterase Acetone, Qual 12/31/17 12/31/17 12/31/17 07:24 07:45 07:45 WBC 7.4 RBC 4.18 Hgb 12.7 Hct 38.0 MCV 90.9 MCH 30.4 MCHC 33.4 RDW 14.4 Plt Count 224 MPV 10.1 Absolute Neuts (auto) 5.3 Neutrophils % 71.2 Lymphocytes % 18.4 Monocytes % 9.4 Eosinophils % 0.6 Basophils % 0.4 Nucleated RBC % 0 Puncture Site ABG pH ABG pCO2 at Pt Temp ABG pO2 at Pt Temp ABG HCO3 ABG O2 Sat (Measured) ABG O2 Content ABG Base Excess Jd Test Oxygen Flow Rate Sodium 157 H Potassium 3.7 Chloride 119 H Carbon Dioxide 33 H Anion Gap 5 L BUN 21 H Creatinine 1.1 H Creat Clearance w eGFR 50.01 POC Glucometer 152.02375 Random Glucose 136 H Hemoglobin A1c % Lactic Acid Calcium 10.6 H Phosphorus 1.5 L Magnesium 2.5 H Total Bilirubin AST ALT Alkaline Phosphatase Total Protein Albumin Triglycerides 74 Cholesterol 235 H Total LDL Cholesterol 130 H HDL Cholesterol 84 H Vitamin B12 1648 H TSH 0.81 Free T4 1.01 Urine Color Urine Appearance Urine pH Ur Specific [place] Urine Protein Urine Glucose (UA) Urine Ketones Urine Blood Urine Nitrite Urine Bilirubin Urine Urobilinogen Ur Leukocyte Esterase Acetone, Qual 12/31/17 12/31/17 12/31/17 07:45 07:45 14:00 WBC RBC Hgb Hct MCV MCH MCHC RDW Plt Count MPV Absolute Neuts (auto) Neutrophils % Lymphocytes % Monocytes % Eosinophils % Basophils % Nucleated RBC % Puncture Site ABG pH ABG pCO2 at Pt Temp ABG pO2 at Pt Temp ABG HCO3 ABG O2 Sat (Measured) ABG O2 Content ABG Base Excess Jd Test Oxygen Flow Rate Sodium Potassium Chloride Carbon Dioxide Anion Gap BUN Creatinine Creat Clearance w eGFR POC Glucometer Random Glucose Hemoglobin A1c % 13.4 H Lactic Acid 1.4 Calcium Phosphorus Magnesium Total Bilirubin AST ALT Alkaline Phosphatase Total Protein Albumin Triglycerides Cancelled Cholesterol Cancelled Total LDL Cholesterol Cancelled HDL Cholesterol Cancelled Vitamin B12 Cancelled TSH Cancelled Free T4 Cancelled Urine Color Urine Appearance Urine pH Ur Specific [place] Urine Protein Urine Glucose (UA) Urine Ketones Urine Blood Urine Nitrite Urine Bilirubin Urine Urobilinogen Ur Leukocyte Esterase Acetone, Qual Active Medications Generic Name Dose Route Start Last Admin Trade Name Freq PRN Reason Stop Dose Admin Acetaminophen 650 mg 12/31/17 11:13 Tylenol - PO Q4H PRN PAIN OR FEVER Aspirin 81 mg 12/31/17 10:00 12/31/17 09:49 Asa - PO 81 mg DAILY JULIANA Administration Chlorhexidine Gluconate 1 applic 12/31/17 22:00 Hibiclens For Decolonization - TP HS JULIANA Gabapentin 400 mg 12/31/17 14:00 Neurontin - PO TID JULIANA Heparin Sodium (Porcine) 5,000 unit 12/31/17 06:00 12/31/17 06:51 Heparin - SQ 5,000 unit TID JULIANA Administration Insulin Aspart 1 vial 12/31/17 16:30 Novolog Vial Sliding Scale - SQ ACHS [facility] Protocol Insulin Detemir 14 units 12/31/17 07:00 12/31/17 06:52 Levemir Vial SQ 14 units AM JULIANA Administration Mupirocin 1 applic 12/31/17 10:00 12/31/17 09:50 Bactroban Ointment (For Decolonization) - NS 01/05/18 09:59 1 applic BID JULIANA Administration Rosuvastatin Calcium 40 mg 12/31/17 22:00 Crestor - PO HS [facility] ASSESSMENT/PLAN: 62y/o F PMH of DM2, poorly controlled. Pt presented to [facility] ED with elevated BS and dysuria. In ED, pt was found to have a bgm in the 700's and ketones +2. Pt endorses polydipsia and polyuria for the last several days. Endo: Hyperglycemia 2/2 uncontrolled DM2- anion gap 9 today, cl 112, na 148, co2 27, glucose 376 -insulin drip d/c'ed -A1C- 13.4 -Receiving Long acting insulin at home-50 units -Insulin aspart sliding scale -Insulin Detemir 14 U SQ -initially receiving NS which was switched to 1/2 d5w. No longer receiving fluids. Endocrinology consult pending transfer to telemetry Diabetic Neuropathy Dr. Tellez, Vascular Surgeon, seen pt today. -Dorsalis pedis pulses 2+ b/l. Continue Gabapentin 400 mg po tid Crestor 40 mg po Neurology on board. FEN No fluids Monitor Electrolytes Low sodium diabetic diet DVT ppx: Heparin 5,000 U SQ Dispo Transfer to telem. Visit type - Emergency Visit Emergency Visit: Yes ED Registration Date: 12/31/17 Care time: The patient presented to the Emergency Department on the above date and was hospitalized for further evaluation of their emergent condition. - New Patient This patient is new to me today: Yes Date on this admission: 12/31/17 - Critical Care Critical Care patient: Yes Total Critical Care Time (in minutes): 35 Critical Care Statement: The care of this patient involved high complexity decision making to prevent further life threatening deterioration of the patient 's condition and/or to evaluate & treat vital organ system(s) failure or risk of failure.
[2017-12-31] MEDS ORDERED: INSULIN SLIDING SCALE (NOVOLOG) 1 VIAL SQ SCH ×2 (16:30→22:00)
[2017-12-31] MEDS: GABAPENTIN 400 MG CAPSULE (FP) PO SCH ×2 (16:54→22:03)
--- NOTE | 2017-12-31 17:27 | CON.NEP ---
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 Cardio/Vascular: Yes: HTN Renal/: Yes: Renal Inusuff Psych: Yes: Depression Musculoskeletal: Yes: 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) Endocrine: Yes: Diabetes Mellitus - Past Surgical History Past Surgical History: Yes: Hysterectomy (and BSO-- for fibroids), Tubal Ligation - Alcohol/Substance Use Hx Alcohol Use: No History of Substance Use: reports: None - Smoking History Smoking history: Never smoked Have you smoked in the past 12 months: No - Social History ADL: Independent Occupation: retired History of Recent Travel: No Home Medications - Allergies Allergies/Adverse Reactions: Allergies Allergy/AdvReac Type Severity Reaction Status Date / Time No Known Allergies Allergy Verified 12/30/17 23:23 - Home Medications Home Medications: Ambulatory Orders Aspirin Coated [Ecotrin -] 81 mg PO DAILY tablet.ec 06/28/17 Insulin Aspart [Novolog Flexpen] 10 unit SQ AC 11/01/17 Insulin Detemir [Levemir Flextouch] 14 unit SQ AM 11/01/17 Family Disease History - Family Disease History Family Disease History: Diabetes: Mother (HTN) Nephrology Consult - Height Height: 5 ft 4.8 in - Weight Weight: 200 lb 11.2 oz - BMI Body Mass Index (BMI): 33.5 - Lab Results CBC,BMP: CBC, BMP 12/31/17 07:45 12/31/17 14:00 Anion Gap: Anion Gap Anion Gap 9 (8-16) 12/31/17 14:00 - Physical Examination Vital Signs: Vital Signs Temperature 97.8 F 12/31/17 13:00 Pulse Rate 78 12/31/17 17:00 Respiratory Rate 16 12/31/17 17:00 Blood Pressure 154/90 12/31/17 17:00 O2 Sat by Pulse Oximetry (%) 99 12/31/17 09:00 Constitutional: Yes: Well Nourished, No Distress, Calm Eyes: Yes: WNL, Conjunctiva Clear, EOM Intact HENT: Yes: WNL, Atraumatic, Normocephalic Neck: Yes: WNL, Supple, Trachea Midline Cardiovascular: Yes: WNL, Regular Rate and Rhythm Respiratory: Yes: WNL, Regular, CTA Bilaterally Gastrointestinal: Yes: WNL, Normal Bowel Sounds Renal/: Yes: Polyuria Musculoskeletal: Yes: WNL Extremities: Yes: Amputation Edema: Yes Edema: LLE: 1+, RLE: 1+ Peripheral Pulses WNL: Yes Integumentary: Yes: WNL Assessment/Plan desire/dehydration/prerenal uncontrolled dm hypernatremia- corrected serum sodium 155 with last glucose 400+ +ketonemia but anion gap is 9 plan- continue ivf hypotonic solutions strict i and o follow bmp for na, anion gap
[2017-12-31] MEDS ORDERED: ROSUVASTATIN CA 40 MG TABLET PO SCH ×2 (22:00)
[2017-12-31] MEDS ORDERED: CHLORHEXIDINE GLUCONATE 4% CLEANSER FOR DECOLONIZATION TP SCH (22:00)
--- NOTE | 2017-12-31 23:06 | CONSULT ---
Consult Consult Specialty:: endocrine Referred by:: cecilio desir np Reason for Consultation:: diabetes mellitus - History of Present Illness Chief Complaint: high sugars History of Present Illness: 62 y/o woman PMH poorly controlled DM. Who presents to the ED with elevated BS and dysuria. 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 Patient reports increased thirst and urination x several days. She reports seeing her PCP recently with no change to her medication regimen. 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) Endocrine: Yes: Diabetes Mellitus - Past Surgical History Past Surgical History: Yes: Hysterectomy (and BSO-- for fibroids), Tubal Ligation - Alcohol/Substance Use Hx Alcohol Use: No History of Substance Use: reports: None - Smoking History Smoking history: Never smoked Have you smoked in the past 12 months: No - Social History ADL: Independent Occupation: retired History of Recent Travel: No Home Medications - Allergies Allergies/Adverse Reactions: Allergies Allergy/AdvReac Type Severity Reaction Status Date / Time No Known Allergies Allergy Verified 12/30/17 23:23 - Home Medications Home Medications: Ambulatory Orders Aspirin Coated [Ecotrin -] 81 mg PO DAILY tablet.ec 06/28/17 Insulin Aspart [Novolog Flexpen] 10 unit SQ AC 11/01/17 Insulin Detemir [Levemir Flextouch] 14 unit SQ AM 11/01/17 Family Disease History - Family Disease History Family Disease History: Diabetes: Mother (HTN) Review of Systems - Review of Systems Constitutional: reports: Lethargy, Weakness Eyes: reports: Blurred Vision HENT: reports: No Symptoms Neck: reports: No Symptoms Cardiovascular: reports: Shortness of Breath Respiratory: reports: Exercise Intolerance, SOB on Exertion Gastrointestinal: reports: Bloating, Nausea Genitourinary: reports: Frequency Breasts: reports: No Symptoms Reported Musculoskeletal: reports: Muscle Cramps, Muscle Weakness Integumentary: reports: No Symptoms Neurological: reports: Unsteady Gait, Weakness Endocrine: reports: Increased Hunger Physical Exam Vital Signs: Vital Signs Temperature 97.8 F 12/31/17 13:00 Pulse Rate 84 12/31/17 21:00 Respiratory Rate 18 12/31/17 21:00 Blood Pressure 146/87 12/31/17 21:00 O2 Sat by Pulse Oximetry (%) 99 12/31/17 19:48 Constitutional: Yes: Anxious Eyes: Yes: EOM Intact HENT: Yes: Normocephalic Neck: Yes: Trachea Midline Cardiovascular: Yes: Regular Rate and Rhythm Respiratory: Yes: CTA Bilaterally Gastrointestinal: Yes: Normal Bowel Sounds ...Rectal Exam: Yes: Deferred Renal/: Yes: WNL Musculoskeletal: Yes: WNL Extremities: Yes: WNL Neurological: Yes: Alert, Oriented Labs: CBC, BMP 12/31/17 07:45 12/31/17 14:00 Problem List - Problems (1) Type 2 diabetes mellitus with hyperglycemia Code(s): E11.65 - TYPE 2 DIABETES MELLITUS WITH HYPERGLYCEMIA (2) CKD (chronic kidney disease) Code(s): N18.9 - CHRONIC KIDNEY DISEASE, UNSPECIFIED (3) DVT prophylaxis Code(s): OKQ9793 - (4) Diabetic ketoacidosis Code(s): E13.10 - OTH DIABETES MELLITUS WITH KETOACIDOSIS WITHOUT COMA (5) Diabetic neuropathy Code(s): E11.40 - TYPE 2 DIABETES MELLITUS WITH DIABETIC NEUROPATHY, UNSP (6) Ischemic foot Code(s): I99.8 - OTHER DISORDER OF CIRCULATORY SYSTEM (7) Right foot pain Code(s): M79.671 - PAIN IN RIGHT FOOT (8) Acute renal failure Code(s): N17.9 - ACUTE KIDNEY FAILURE, UNSPECIFIED Assessment/Plan Current Active Problems CKD (chronic kidney disease) (Acute) DVT prophylaxis (Acute) Diabetic ketoacidosis (Acute) Diabetic neuropathy (Acute) Ischemic foot (Acute) Right foot pain (Acute) Abnormal Lab Results 12/30/17 12/31/17 12/31/17 23:50 01:15 02:47 ABG HCO3 26.8 H ABG Base Excess 2.7 H Sodium 146 H Chloride 111 H Carbon Dioxide Anion Gap BUN 24 H Creatinine 1.3 H Random Glucose 761 H* Hemoglobin A1c % Calcium Phosphorus Magnesium Cholesterol Total LDL Cholesterol HDL Cholesterol Vitamin B12 Urine Glucose (UA) 3+ H Urine Ketones Trace H Acetone, Qual Positive moderate 2+ H 12/31/17 12/31/17 12/31/17 07:45 07:45 14:00 ABG HCO3 ABG Base Excess Sodium 157 H 148 H Chloride 119 H 112 H Carbon Dioxide 33 H Anion Gap 5 L BUN 21 H 20 H Creatinine 1.1 H 1.2 H Random Glucose 136 H 376 H* Hemoglobin A1c % 13.4 H Calcium 10.6 H Phosphorus 1.5 L Magnesium 2.5 H Cholesterol 235 H Total LDL Cholesterol 130 H HDL Cholesterol 84 H Vitamin B12 1648 H Urine Glucose (UA) Urine Ketones Acetone, Qual Laboratory Tests 12/31/17 12/31/17 12/31/17 07:45 07:45 14:00 Creat Clearance w eGFR 45.23 Random Glucose 136 H Hemoglobin A1c % 13.4 H plan:bgm q id novolog insulin levemir 20 units am levemir 10 units hs diet nutrition consult
[2018-01-01] MEDS: ROSUVASTATIN CA 20 MG TABLET (FP) PO SCH ×2 (05:48→22:00)
[2018-01-01] MEDS: HEPARIN NA (PORCINE) 5,000 UNITS/ML 1ML VIAL SQ SCH ×3 (05:49→22:00)
[2018-01-01] MEDS: GABAPENTIN 400 MG CAPSULE (FP) PO SCH ×3 (05:50→22:00)
[2018-01-01 06:04] LABS: BASO % 0.6 % (0-2.0); HEMOGLOBIN 10.8 GM/dL (10.7-15.3); LYMPH % 31.3 % (8-40); MCH 30.6 pg (25.7-33.7); MCHC 32.9 g/dl (32.0-36.0); MEAN PLT VOLUME 10.3 fl (7.5-11.1); MONO % 6.7 % (3.8-10.2); NEUT % 59.4 % (42.8-82.8); PLATELET COUNT 157 K/MM3 (134-434); RBC 3.55 M/mm3 (3.60-5.2); RDW 14.7 % (11.6-15.6); WHITE BLOOD COUNT 5.5 K/mm3 (4.0-10.0)
[2018-01-01] MEDS: INSULIN SLIDING SCALE (NOVOLOG) 1 VIAL SQ SCH ×4 (06:15→22:02)
[2018-01-01] MEDS: INSULIN (LEVEMIR) 100 UNITS/ML UNITS SQ SCH (06:16)
[2018-01-01 06:25] LABS: ALBUMIN 2.7 g/dl (3.4-5.0); ANION GAP 7 (8-16); BILIRUBIN,TOTAL 0.3 mg/dL (0.2-1.0); BLOOD UREA NITROGEN 17 mg/dL (7-18); CALCIUM 8.5 mg/dL (8.5-10.1); CHLORIDE 113 mmol/L (98-107); CO2 27 mmol/L (21-32); POTASSIUM 3.8 mmol/L (3.5-5.1); SGOT/AST 17 U/L (15-37); SGPT/ALT 21 U/L (12-78); SODIUM 147 mmol/L (136-145); TOT PROT 6.4 g/dl (6.4-8.2)
[2018-01-01 06:26] LABS: ALK PHOS 65 U/L (45-117)
[2018-01-01 06:34] LABS: GLUCOSE,RANDOM 347 mg/dL (74-106)
[2018-01-01] MEDS ORDERED: INSULIN (LEVEMIR) 100 UNITS/ML UNITS SQ SCH ×2 (07:00→22:00)
[2018-01-01] MEDS ORDERED: SODIUM CHLORIDE 0.45% 1,000 ML IV SCH (07:25)
[2018-01-01] MEDS ORDERED: ACETAMINOPHEN 325 MG TABLET (FP) PO PRN (07:25)
--- NOTE | 2018-01-01 08:03 | PN ---
Progress Note, Physician - Current Medication List Current Medications: Active Medications Acetaminophen (Tylenol -) 650 mg PO Q4H PRN PRN Reason: FEVER Aspirin (Asa -) 81 mg PO DAILY [facility] Gabapentin (Neurontin -) 400 mg PO TID [facility] Heparin Sodium (Porcine) (Heparin -) 5,000 unit SQ TID JULIANA Sodium Chloride (1/2 Normal Saline) 1,000 mls @ 100 mls/hr IV ASDIR JULIANA Insulin Aspart (Novolog Vial Sliding Scale -) 1 vial SQ ACHS [facility]; Protocol Last Admin: 01/01/18 06:15 Dose: 10 units Insulin Detemir (Levemir Vial) 25 units SQ AM JULIANA Last Admin: 01/01/18 06:16 Dose: 25 units Insulin Detemir (Levemir Vial) 10 units SQ HS JULIANA Rosuvastatin Calcium (Crestor -) 40 mg PO HS [facility] Last Admin: 01/01/18 05:48 Dose: Not Given - Objective Vital Signs: Vital Signs Temperature 98.4 F 01/01/18 00:00 Pulse Rate 82 01/01/18 07:00 Respiratory Rate 16 01/01/18 07:00 Blood Pressure 144/92 01/01/18 07:00 O2 Sat by Pulse Oximetry (%) 99 12/31/17 19:48 Cardiovascular: Yes: Regular Rate and Rhythm Respiratory: Yes: Regular, CTA Bilaterally Gastrointestinal: Yes: Normal Bowel Sounds, Soft. No: Tenderness Neurological: Yes: Alert, Oriented Labs: CBC, BMP 01/01/18 05:30 01/01/18 05:30 Assessment/Plan - Problems (1) Diabetic neuropathy Assessment/Plan: -Start Gabapentin 200 mg po TID -Acetaminophen 650 mg po Q6 H PRN -Neurology consult -EMG outpatient? -B12 levels ordered Code(s): E11.40 - TYPE 2 DIABETES MELLITUS WITH DIABETIC NEUROPATHY, UNSP (2) Hyperglycemia due to type 2 diabetes mellitus Assessment/Plan: -Was on Insulin drip-discontinued -A1c 13.4 -BGM-ACHS -Diabetic low sodium diet -RD consult -On Levemir 50 units at home as per daughter, titrate levemir according per endo -Endocrinology consult noted -Aspirin 81mg -Lipid profile ordered Code(s): E11.65 - TYPE 2 DIABETES MELLITUS WITH HYPERGLYCEMIA (3) CKD (chronic kidney disease) Assessment/Plan: -Improved -Nephrology consult -IVF -JOSSIE or an ARB as per nephrology Code(s): N18.9 - CHRONIC KIDNEY DISEASE, UNSPECIFIED (4) Hypernatremia Assessment/Plan: -likely 2/2 to hyperglycemia and free water loss -continue hypotonic fluid -labs in AM Code(s): E87.0 - HYPEROSMOLALITY AND HYPERNATREMIA
--- NOTE | 2018-01-01 08:56 | PN ---
Progress Note (short form) - Note Progress Note: Neurology HISTORY OF PRESENT ILLNESS: 62 y/o woman PMH poorly controlled DM who presented to the ED with elevated BS and dysuria. Patient reported increased thirst and urination x several days. She reported seeing her PCP recently with no change to her medication regimen. Patient denied fever, chills, cough, SOB, CP, palpitations, AP, N/V/D, constipation. Her Glucose was 761 with Serum Ketones positive +2. She is ICU under critical care for DKA. I was consulted for evaluation diabetic neuropathy. She reports ongoing cold sensation in her distal lower extremities. Has been started on chilo 200 tid but which I increased to 400mg three times a day dose given her history of poorly controlled blood sugar. Reports no significant improvement thus far. May not see relief right away and can take days to weeks to see benefit but will try. Explained this to patient and she endorsed understanding. Active Medications Acetaminophen (Tylenol -) 650 mg PO Q4H PRN PRN Reason: FEVER Aspirin (Asa -) 81 mg PO DAILY JULIANA Gabapentin (Neurontin -) 400 mg PO TID JULIANA Heparin Sodium (Porcine) (Heparin -) 5,000 unit SQ TID [facility] Insulin Aspart (Novolog Vial Sliding Scale -) 1 vial SQ ACHS [facility]; Protocol Last Admin: 01/01/18 06:15 Dose: 10 units Insulin Detemir (Levemir Vial) 25 units SQ AM JULIANA Last Admin: 01/01/18 06:16 Dose: 25 units Insulin Detemir (Levemir Vial) 10 units SQ HS JULIANA Rosuvastatin Calcium (Crestor -) 40 mg PO HS [facility] Last Admin: 01/01/18 05:48 Dose: Not Given PHYSICAL EXAMINATION Vital Signs Period Temp Pulse Resp BP Sys/Haskins Pulse Ox Last 24 Hr 97.8 F-98.4 F 78-94 16-18 125-155/66-94 99-99 GENERAL: Awake, alert, and fully oriented, in no acute distress. HEAD: Normal with no signs of trauma. EYES: Pupils equal, round and reactive to light, extraocular movements intact, sclera anicteric, conjunctiva clear. No lid lag. EARS, NOSE, THROAT: Ears normal, nares patent, oropharynx clear without exudates. Dry mucous membranes. NECK: Normal range of motion, supple without lymphadenopathy, JVD, or masses. LUNGS: Breath sounds equal, clear to auscultation bilaterally. No wheezes, and no crackles. No accessory muscle use. HEART: Regular rate and rhythm, normal S1 and S2 without murmur, rub or gallop. ABDOMEN: lower abdominal tenderness. soft, not distended, normoactive bowel sounds, no guarding, no rebound, no masses. No hepatomegaly or splenomegaly. MUSCULOSKELETAL: Normal range of motion at all joints. Nobony deformities or tenderness. No CVA tenderness. UPPER EXTREMITIES: 2+ pulses, warm, well-perfused. No cyanosis. No clubbing. No peripheral edema. LOWER EXTREMITIES: Right foot cool to touch, partial amputation of R-toes #2, 3. 2+ pulses, warm to left foot well-perfused. No calf tenderness. No peripheral edema. NEUROLOGICAL: Cranial nerves II-XII intact. Normal speech. Decreased PP in distal lower extremities. Gait deferred. PSYCHIATRIC: Cooperative. Good eye contact. Appropriate mood and affect. SKIN: Warm, dry, normal turgor, no rashes or lesions noted, normal capillary refill. CBCD WBC 5.5 K/mm3 (4.0-10.0) 01/01/18 05:30 RBC 3.55 M/mm3 (3.60-5.2) L 01/01/18 05:30 Hgb 10.8 GM/dL (10.7-15.3) 01/01/18 05:30 Hct 33.0 % (32.4-45.2) 01/01/18 05:30 MCV 93.0 fl (80-96) 01/01/18 05:30 MCHC 32.9 g/dl (32.0-36.0) 01/01/18 05:30 RDW 14.7 % (11.6-15.6) 01/01/18 05:30 Plt Count 157 K/MM3 (134-434) D 01/01/18 05:30 MPV 10.3 fl (7.5-11.1) 01/01/18 05:30 CMP Sodium 147 mmol/L (136-145) H 01/01/18 05:30 Potassium 3.8 mmol/L (3.5-5.1) 01/01/18 05:30 Chloride 113 mmol/L (98-107) H 01/01/18 05:30 Carbon Dioxide 27 mmol/L (21-32) 01/01/18 05:30 Anion Gap 7 (8-16) L 01/01/18 05:30 BUN 17 mg/dL (7-18) 01/01/18 05:30 Creatinine 1.0 mg/dL (0.55-1.02) 01/01/18 05:30 Creat Clearance w eGFR 55.82 (>60) 01/01/18 05:30 Calcium 8.5 mg/dL (8.5-10.1) 01/01/18 05:30 Total Bilirubin 0.3 mg/dL (0.2-1.0) 01/01/18 05:30 AST 17 U/L (15-37) 01/01/18 05:30 ALT 21 U/L (12-78) 01/01/18 05:30 Alkaline Phosphatase 65 U/L (45-117) D 01/01/18 05:30 Total Protein 6.4 g/dl (6.4-8.2) 01/01/18 05:30 Albumin 2.7 g/dl (3.4-5.0) L 01/01/18 05:30 ASSESSMENT/PLAN: 62 y/o woman PMH poorly controlled DM who presented to the ED with elevated BS and dysuria. Patient reported increased thirst and urination x several days. She reported seeing her PCP recently with no change to her medication regimen. Patient denied fever, chills, cough, SOB, CP, palpitations, AP, N/V/D, constipation. Her Glucose was 761 with Serum Ketones positive +2. She is ICU under critical care for DKA. I was consulted for evaluation diabetic neuropathy. She reports ongoing cold sensation in her distal lower extremities. Has been started on chilo 200 tid which I increased to 400mg three times a day. May not see relief right away and can take days to weeks to see benefit but will try. Explained this to patient and she endorsed understanding. Tight glycemic control needed, both inpatient and outpatient. Is on insulin and advised her to maintain euglycemic state. EMG can be done as outpatient though will initiate treatment. Endo follow up. Maintain hydration. Caution with ambulation. Monitor BP, maintain normotensive range.
[2018-01-01] MEDS: ASPIRIN 81 MG CHEWABLE TABLETS PO SCH (09:59)
[2018-01-01] MEDS ORDERED: ASPIRIN 81 MG CHEWABLE TABLETS PO SCH (10:00)
--- NOTE | 2018-01-01 11:02 | PN ---
Teaching Attending Note Name of Resident: Josh Woodall ATTENDING PHYSICIAN STATEMENT I saw and evaluated the patient. I reviewed the resident's note and discussed the case with the resident. I agree with the resident's findings and plan as documented. SUBJECTIVE: Patient seen and examined in the ICU. Awake and alert. Remains off IV Insulin. No CP or SOB. Less discomfort in her right toes/foot. Intake & Output 12/29/17 12/30/17 12/31/17 01/01/18 23:59 23:59 23:59 23:59 Intake Total 2380 820 Output Total 1 Balance 2380 819 Weight 150 lb 200 lb 11.2 oz Last Vital Signs Temp Pulse Resp BP Pulse Ox 99.7 F H 133 H 16 116/71 99 01/01/18 10:07 01/01/18 10:01/01/18 10:01/01/18 10:01/01/18 09:00 Active Medications Acetaminophen (Tylenol -) 650 mg PO Q4H PRN PRN Reason: FEVER Aspirin (Asa -) 81 mg PO DAILY [facility] Last Admin: 01/01/18 09:59 Dose: 81 mg Gabapentin (Neurontin -) 400 mg PO TID [facility] Heparin Sodium (Porcine) (Heparin -) 5,000 unit SQ TID [facility] Insulin Aspart (Novolog Vial Sliding Scale -) 1 vial SQ [facility]; Protocol Last Admin: 01/01/18 06:15 Dose: 10 units Insulin Detemir (Levemir Vial) 25 units SQ AM [facility] Last Admin: 01/01/18 06:16 Dose: 25 units Insulin Detemir (Levemir Vial) 10 units SQ HS [facility] Rosuvastatin Calcium (Crestor -) 40 mg PO [facility] Last Admin: 01/01/18 05:48 Dose: Not Given GENERAL: Awake, alert, and fully oriented, NAD HEAD: Normal with no signs of trauma. EYES: Pupils equal, round and reactive to light, extraocular movements intact, sclera anicteric, conjunctiva clear. No lid lag. EARS, Moist mucous membranes. NECK: supple LUNGS: Breath sounds equal, clear to auscultation bilaterally. HEART: Regular rate and rhythm, normal S1 and S2 ABDOMEN: Soft, NT, ND, (+) BS, no guarding, no rebound, no masses. MUSCULOSKELETAL: No CVA tenderness. UPPER EXTREMITIES: 2+ pulses, warm, well-perfused. No peripheral edema. LOWER EXTREMITIES: L foot warm 2+ pulse, and well perfused. R foot 2+ DP but cool, toes deformed and missing nail beds, skin exhibits slight dark discoloration. NEUROLOGICAL: Non-focal. PSYCHIATRIC: Cooperative. Good eye contact. Appropriate mood and affect. SKIN: Warm, dry Laboratory Results - last 24 hr 12/31/17 12/31/17 12/31/17 03:22 06:37 07:24 WBC RBC Hgb Hct MCV MCH MCHC RDW Plt Count MPV Absolute Neuts (auto) Neutrophils % Lymphocytes % Monocytes % Eosinophils % Basophils % Nucleated RBC % Sodium Potassium Chloride Carbon Dioxide Anion Gap BUN Creatinine Creat Clearance w eGFR POC Glucometer > 400 192.49331 [phone] Random Glucose Lactic Acid Calcium Phosphorus Magnesium Total Bilirubin AST ALT Alkaline Phosphatase Total Protein Albumin Triglycerides Cholesterol Total LDL Cholesterol HDL Cholesterol Vitamin B12 TSH Free T4 12/31/17 12/31/17 12/31/17 07:45 07:45 12:43 WBC RBC Hgb Hct MCV MCH MCHC RDW Plt Count MPV Absolute Neuts (auto) Neutrophils % Lymphocytes % Monocytes % Eosinophils % Basophils % Nucleated RBC % Sodium 157 H Potassium 3.7 Chloride 119 H Carbon Dioxide 33 H Anion Gap 5 L BUN 21 H Creatinine 1.1 H Creat Clearance w eGFR 50.01 POC Glucometer [phone] Random Glucose 136 H Lactic Acid Calcium 10.6 H Phosphorus 1.5 L Magnesium 2.5 H Total Bilirubin AST ALT Alkaline Phosphatase Total Protein Albumin Triglycerides 74 Cancelled Cholesterol 235 H Cancelled Total LDL Cholesterol 130 H Cancelled HDL Cholesterol 84 H Cancelled Vitamin B12 1648 H Cancelled TSH 0.81 Cancelled Free T4 1.01 Cancelled 12/31/17 12/31/17 12/31/17 14:00 14:00 16:47 WBC RBC Hgb Hct MCV MCH MCHC RDW Plt Count MPV Absolute Neuts (auto) Neutrophils % Lymphocytes % Monocytes % Eosinophils % Basophils % Nucleated RBC % Sodium 148 H Potassium 4.4 Chloride 112 H Carbon Dioxide 27 Anion Gap 9 BUN 20 H Creatinine 1.2 H Creat Clearance w eGFR 45.23 POC Glucometer > 400 Random Glucose 376 H* Lactic Acid 1.4 Calcium 9.4 Phosphorus Magnesium Total Bilirubin AST ALT Alkaline Phosphatase Total Protein Albumin Triglycerides Cholesterol Total LDL Cholesterol HDL Cholesterol Vitamin B12 TSH Free T4 12/31/17 01/01/18 01/01/18 21:47 05:30 05:30 WBC 5.5 RBC 3.55 L Hgb 10.8 Hct 33.0 MCV 93.0 MCH 30.6 MCHC 32.9 RDW 14.7 Plt Count 157 D MPV 10.3 Absolute Neuts (auto) 3.3 Neutrophils % 59.4 Lymphocytes % 31.3 D Monocytes % 6.7 Eosinophils % 2.0 D Basophils % 0.6 Nucleated RBC % 0 Sodium 147 H Potassium 3.8 Chloride 113 H Carbon Dioxide 27 Anion Gap 7 L BUN 17 Creatinine 1.0 Creat Clearance w eGFR 55.82 POC Glucometer > 400 Random Glucose 347 H* Lactic Acid Calcium 8.5 Phosphorus Magnesium Total Bilirubin 0.3 AST 17 ALT 21 Alkaline Phosphatase 65 D Total Protein 6.4 Albumin 2.7 L Triglycerides Cholesterol Total LDL Cholesterol HDL Cholesterol Vitamin B12 TSH Free T4 Problem List - Problems (1) Right foot pain Code(s): M79.671 - PAIN IN RIGHT FOOT (2) DVT prophylaxis Code(s): BLR9435 - (3) Dehydration with hypernatremia Code(s): E87.0 - HYPEROSMOLALITY AND HYPERNATREMIA (4) Diabetes mellitus with hyperosmolarity, with long-term current use of insulin Code(s): E11.00 - TYPE 2 DIAB W HYPROSM W/O NONKET HYPRGLY-HYPROS COMA ([facility]); Z79.4 - [employer]PER[employer] HELPER (CURRENT) USE OF 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
--- NOTE | 2018-01-01 12:06 | PN ---
Physical Exam: SUBJECTIVE: Patient seen and examined today in icu. insulin drip stopped. Pt still c/o some pain in her feet b/l. Denies cp, sob, cosby, nausea, or vomiting. Pt being transferred to med-surg floor today. OBJECTIVE: Vital Signs Period Temp Pulse Resp BP Sys/Haskins Pulse Ox Last 24 Hr 97.8 F-99.7 F 78-133 16-18 116-155/71-92 99-99 GENERAL: aaox3, NAD HEAD: Normal with no signs of trauma. EYES: PERRL, extraocular movements intact, sclera anicteric, conjunctiva clear. No ptosis. ENT: Ears normal, nares patent, oropharynx clear without exudates, moist mucous membranes. NECK: Trachea midline, full range of motion, supple. LUNGS: CTA b/l, HEART: RRR, -m/r/g, S1,S2+ ABDOMEN: NT, ND, no organomegaly, bs + EXTREMITIES: 2+ pulses, warm, well-perfused, no edema. NEUROLOGICAL: Cranial nerves II through XII grossly intact. Normal speech, gait not observed. PSYCH: Normal mood, normal affect. SKIN: both feet cool to touch. Auto-amputation of several toes. Laboratory Results - last 24 hr 12/31/17 12/31/17 12/31/17 03:22 07:45 07:45 WBC RBC Hgb Hct MCV MCH MCHC RDW Plt Count MPV Absolute Neuts (auto) Neutrophils % Lymphocytes % Monocytes % Eosinophils % Basophils % Nucleated RBC % Sodium 157 H Potassium 3.7 Chloride 119 H Carbon Dioxide 33 H Anion Gap 5 L BUN 21 H Creatinine 1.1 H Creat Clearance w eGFR 50.01 POC Glucometer > 400 Random Glucose 136 H Lactic Acid Calcium 10.6 H Phosphorus 1.5 L Magnesium 2.5 H Total Bilirubin AST ALT Alkaline Phosphatase Total Protein Albumin Triglycerides 74 Cancelled Cholesterol 235 H Cancelled Total LDL Cholesterol 130 H Cancelled HDL Cholesterol 84 H Cancelled Vitamin B12 1648 H Cancelled TSH 0.81 Cancelled Free T4 1.01 Cancelled 12/31/17 12/31/17 12/31/17 12:43 14:00 14:00 WBC RBC Hgb Hct MCV MCH MCHC RDW Plt Count MPV Absolute Neuts (auto) Neutrophils % Lymphocytes % Monocytes % Eosinophils % Basophils % Nucleated RBC % Sodium 148 H Potassium 4.4 Chloride 112 H Carbon Dioxide 27 Anion Gap 9 BUN 20 H Creatinine 1.2 H Creat Clearance w eGFR 45.23 POC Glucometer [phone] Random Glucose 376 H* Lactic Acid 1.4 Calcium 9.4 Phosphorus Magnesium Total Bilirubin AST ALT Alkaline Phosphatase Total Protein Albumin Triglycerides Cholesterol Total LDL Cholesterol HDL Cholesterol Vitamin B12 TSH Free T4 12/31/17 12/31/17 01/01/18 16:47 21:47 05:30 WBC 5.5 RBC 3.55 L Hgb 10.8 Hct 33.0 MCV 93.0 MCH 30.6 MCHC 32.9 RDW 14.7 Plt Count 157 D MPV 10.3 Absolute Neuts (auto) 3.3 Neutrophils % 59.4 Lymphocytes % 31.3 D Monocytes % 6.7 Eosinophils % 2.0 D Basophils % 0.6 Nucleated RBC % 0 Sodium Potassium Chloride Carbon Dioxide Anion Gap BUN Creatinine Creat Clearance w eGFR POC Glucometer > 400 > 400 Random Glucose Lactic Acid Calcium Phosphorus Magnesium Total Bilirubin AST ALT Alkaline Phosphatase Total Protein Albumin Triglycerides Cholesterol Total LDL Cholesterol HDL Cholesterol Vitamin B12 TSH Free T4 01/01/18 05:30 WBC RBC Hgb Hct MCV MCH MCHC RDW Plt Count MPV Absolute Neuts (auto) Neutrophils % Lymphocytes % Monocytes % Eosinophils % Basophils % Nucleated RBC % Sodium 147 H Potassium 3.8 Chloride 113 H Carbon Dioxide 27 Anion Gap 7 L BUN 17 Creatinine 1.0 Creat Clearance w eGFR 55.82 POC Glucometer Random Glucose 347 H* Lactic Acid Calcium 8.5 Phosphorus Magnesium Total Bilirubin 0.3 AST 17 ALT 21 Alkaline Phosphatase 65 D Total Protein 6.4 Albumin 2.7 L Triglycerides Cholesterol Total LDL Cholesterol HDL Cholesterol Vitamin B12 TSH Free T4 Active Medications Generic Name Dose Route Start Last Admin Trade Name Freq PRN Reason Stop Dose Admin Acetaminophen 650 mg 01/01/18 07:25 Tylenol - PO Q4H PRN FEVER Aspirin 81 mg 01/01/18 10:00 01/01/18 09:59 Asa - PO 81 mg DAILY [facility] Administration Gabapentin 400 mg 01/01/18 14:00 Neurontin - PO TID [facility] Heparin Sodium (Porcine) 5,000 unit 01/01/18 14:00 Heparin - SQ TID [facility] Insulin Aspart 1 vial 12/31/17 23:12 01/01/18 06:15 Novolog Vial Sliding Scale - SQ 10 units ACHS [facility] Administration Protocol Insulin Detemir 25 units 01/01/18 07:00 01/01/18 06:16 Levemir Vial SQ 25 units AM [facility] Administration Insulin Detemir 10 units 01/01/18 22:00 Levemir Vial SQ HS [facility] Rosuvastatin Calcium 40 mg 12/31/17 22:15 01/01/18 05:48 Crestor - PO Not Given HS [facility] ASSESSMENT/PLAN: 62y/o F PMH of DM2, poorly controlled. Pt presented to [facility] ED with elevated BS and dysuria. In ED, pt was found to have a bgm in the 700's and ketones +2. Pt endorses polydipsia and polyuria for the last several days. Endo: Hyperglycemia 2/2 uncontrolled DM2- -insulin drip d/c'ed -A1C- 13.4 -Receiving Long acting insulin at home-50 units -Insulin aspart sliding scale -Insulin Detemir 25 U SQ AM [facility] - Insulin Detemir 10 Units SQ HS -No longer receiving fluids. Drinking water Endocrinology on board (Dr Nath) Nephrology on board (Dr Bah) Diabetic Neuropathy Gabapentin 200 mg po tid increased to 400 mg po tid as per neurology Crestor 40 mg po ASA 81 mg po daily Neurology on board. Renal: Nephrology (Dr Bah seen pt yesterday) desire/prerenal uncontrolled DM hypernatremia- corrected serum sodium 155 with last glucose 400+ follow bmp for na, anion gap Hypotonic fluids ordered but now d/c'ed as pt is drinking water. FEN No fluids Monitor Electrolytes Low sodium diabetic diet DVT ppx: Heparin 5,000 U SQ Dispo Transfer to med-surg Visit type - Emergency Visit Emergency Visit: Yes ED Registration Date: 12/31/17 Care time: The patient presented to the Emergency Department on the above date and was hospitalized for further evaluation of their emergent condition. - New Patient This patient is new to me today: No - Critical Care Critical Care patient: Yes Total Critical Care Time (in minutes): 35 Critical Care Statement: The care of this patient involved high complexity decision making to prevent further life threatening deterioration of the patient 's condition and/or to evaluate & treat vital organ system(s) failure or risk of failure.
--- NOTE | 2018-01-01 15:26 | PN ---
Progress Note, Physician History of Present Illness: Pt seen and examined at bedside. She is awake and alert. She denies shortness of breath. - Current Medication List Current Medications: Active Medications Acetaminophen (Tylenol -) 650 mg PO Q4H PRN PRN Reason: FEVER Aspirin (Asa -) 81 mg PO DAILY [facility] Last Admin: 01/01/18 09:59 Dose: 81 mg Gabapentin (Neurontin -) 400 mg PO TID [facility] Heparin Sodium (Porcine) (Heparin -) 5,000 unit SQ TID [facility] Insulin Aspart (Novolog Vial Sliding Scale -) 1 vial SQ ACHS [facility]; Protocol Last Admin: 01/01/18 12:40 Dose: 12 units Insulin Detemir (Levemir Vial) 25 units SQ AM [facility] Last Admin: 01/01/18 06:16 Dose: 25 units Insulin Detemir (Levemir Vial) 10 units SQ HS [facility] Rosuvastatin Calcium (Crestor -) 40 mg PO HS [facility] Last Admin: 01/01/18 05:48 Dose: Not Given - Objective Vital Signs: Vital Signs Temperature 98 F 01/01/18 14:00 Pulse Rate 80 01/01/18 14:00 Respiratory Rate 16 01/01/18 14:00 Blood Pressure 158/85 01/01/18 12:00 O2 Sat by Pulse Oximetry (%) 99 01/01/18 09:00 Constitutional: Yes: Calm Eyes: Yes: Conjunctiva Clear HENT: Yes: Atraumatic Neck: Yes: Supple Cardiovascular: Yes: S1, S2 Respiratory: Yes: CTA Bilaterally Gastrointestinal: Yes: Soft Genitourinary: Yes: WNL Musculoskeletal: Yes: WNL Edema: Yes Edema: LLE: Trace, RLE: Trace Neurological: Yes: Oriented Psychiatric: Yes: Oriented Labs: CBC, BMP 01/01/18 05:30 01/01/18 05:30 Problem List - Problems (1) Type 2 diabetes mellitus with hyperglycemia Code(s): E11.65 - TYPE 2 DIABETES MELLITUS WITH HYPERGLYCEMIA (2) Hypernatremia Code(s): E87.0 - HYPEROSMOLALITY AND HYPERNATREMIA Assessment/Plan Current Medications Generic Name Dose Route Start Last Admin Trade Name Freq PRN Reason Stop Dose Admin Acetaminophen 650 mg 01/01/18 07:25 Tylenol - PO Q4H PRN FEVER Aspirin 81 mg 01/01/18 10:00 01/01/18 09:59 Asa - PO 81 mg DAILY [facility] Administration Gabapentin 400 mg 01/01/18 14:00 Neurontin - PO TID [facility] Heparin Sodium (Porcine) 5,000 unit 01/01/18 14:00 Heparin - SQ TID [facility] Insulin Aspart 1 vial 12/31/17 23:12 01/01/18 12:40 Novolog Vial Sliding Scale - SQ 12 units ACHS [facility] Administration Protocol Insulin Detemir 25 units 01/01/18 07:00 01/01/18 06:16 Levemir Vial SQ 25 units AM [facility] Administration Insulin Detemir 10 units 01/01/18 22:00 Levemir Vial SQ HS [facility] Rosuvastatin Calcium 40 mg 12/31/17 22:15 01/01/18 05:48 Crestor - PO Not Given HS [facility] Laboratory Tests 12/31/17 12/31/17 12/31/17 01:15 07:45 14:00 Sodium Creatinine 1.3 H 1.1 H 1.2 H Calcium 10.6 H 01/01/18 05:30 Sodium 147 H Creatinine 1.0 Calcium Impression 1. hypernatremia 2. azotemia 3. DM poorly controlled 4. HTN 5. hypercalcemia 6. hx of CVA 7. dehydration Plan - encourage free water intake - hypotonic fluids - monitor blood sugar - hyperglycemia causing dehydration and hypernatremia - will follow
[2018-01-02] MEDS ORDERED: INSULIN (NOVOLOG) ASPART 100 UNITS/ML 10ML VIAL ONE (05:34)
[2018-01-02] MEDS: GABAPENTIN 400 MG CAPSULE (FP) PO SCH ×2 (06:20→13:40)
[2018-01-02] MEDS: HEPARIN NA (PORCINE) 5,000 UNITS/ML 1ML VIAL SQ SCH ×2 (06:20→13:40)
[2018-01-02] MEDS: INSULIN (LEVEMIR) 100 UNITS/ML UNITS SQ SCH (06:21)
[2018-01-02] MEDS: INSULIN SLIDING SCALE (NOVOLOG) 1 VIAL SQ SCH ×3 (06:21→17:17)
[2018-01-02 07:23] LABS: EOS % 2.3 % (0-4.5); HEMOGLOBIN 11.4 GM/dL (10.7-15.3); LYMPH % 35.2 % (8-40); MCH 30.7 pg (25.7-33.7); MCHC 33.6 g/dl (32.0-36.0); MEAN CELL VOLUME 91.6 fl (80-96); MEAN PLT VOLUME 10.3 fl (7.5-11.1); MONO % 9.6 % (3.8-10.2); NEUT % 51.9 % (42.8-82.8); PLATELET COUNT 147 K/MM3 (134-434); RBC 3.71 M/mm3 (3.60-5.2); RDW 14.2 % (11.6-15.6); WHITE BLOOD COUNT 3.9 K/mm3 (4.0-10.0)
[2018-01-02 08:24] LABS: ALBUMIN 2.7 g/dl (3.4-5.0); ANION GAP 9 (8-16); BLOOD UREA NITROGEN 14 mg/dL (7-18); CALCIUM 8.5 mg/dL (8.5-10.1); CHLORIDE 113 mmol/L (98-107); CO2 26 mmol/L (21-32); CREATININE 0.7 mg/dL (0.55-1.02); GLUCOSE,RANDOM 127 mg/dL (74-106); MAGNESIUM 1.8 mg/dL (1.8-2.4); PHOSPHOROUS 3.1 mg/dL (2.5-4.9); POTASSIUM 3.8 mmol/L (3.5-5.1); SGOT/AST 20 U/L (15-37); SGPT/ALT 22 U/L (12-78); SODIUM 148 mmol/L (136-145)
[2018-01-02 08:25] LABS: ALK PHOS 61 U/L (45-117); BILIRUBIN,TOTAL 0.3 mg/dL (0.2-1.0); TOT PROT 6.3 g/dl (6.4-8.2)
[2018-01-02] MEDS: ASPIRIN 81 MG CHEWABLE TABLETS PO SCH (09:51)
[2018-01-02 10:30] VITALS: BP 142/98; PULSE 84; TEMP 98.1
--- NOTE | 2018-01-02 11:10 | PN ---
Progress Note, Physician Chief Complaint: improving glycemia,mostly limited diet History of Present Illness: diabetes mellitus hyperglycemia,diet non compliant - Current Medication List Current Medications: Active Medications Acetaminophen (Tylenol -) 650 mg PO Q4H PRN PRN Reason: FEVER Aspirin (Asa -) 81 mg PO DAILY [facility] Last Admin: 01/02/18 09:51 Dose: 81 mg Gabapentin (Neurontin -) 400 mg PO TID [facility] Last Admin: 01/02/18 06:20 Dose: 400 mg Heparin Sodium (Porcine) (Heparin -) 5,000 unit SQ TID [facility] Last Admin: 01/02/18 06:20 Dose: 5,000 unit Insulin Aspart (Novolog Vial Sliding Scale -) 1 vial SQ [facility]; Protocol Last Admin: 01/02/18 06:21 Dose: Not Given Insulin Detemir (Levemir Vial) 25 units SQ AM [facility] Last Admin: 01/02/18 06:21 Dose: 25 units Insulin Detemir (Levemir Vial) 10 units SQ HS [facility] Last Admin: 01/01/18 22:01 Dose: 10 units Rosuvastatin Calcium (Crestor -) 40 mg PO [facility] Last Admin: 01/01/18 22:00 Dose: 40 mg - Objective Vital Signs: Vital Signs Temperature 98.1 F 01/02/18 10:00 Pulse Rate 84 01/02/18 10:00 Respiratory Rate 20 01/02/18 10:00 Blood Pressure 142/98 01/02/18 10:00 O2 Sat by Pulse Oximetry (%) 99 01/01/18 21:00 Constitutional: Yes: Well Nourished Eyes: Yes: EOM Intact HENT: Yes: Normocephalic Neck: Yes: Trachea Midline Cardiovascular: Yes: Regular Rate and Rhythm Respiratory: Yes: CTA Bilaterally Gastrointestinal: Yes: Normal Bowel Sounds ...Rectal Exam: Yes: Deferred Genitourinary: Yes: WNL Musculoskeletal: Yes: WNL Extremities: Yes: WNL Psychiatric: Yes: Alert, Oriented Labs: CBC, BMP 01/02/18 06:30 01/02/18 06:30 Problem List - Problems (1) Type 2 diabetes mellitus with hyperglycemia Code(s): E11.65 - TYPE 2 DIABETES MELLITUS WITH HYPERGLYCEMIA (2) CKD (chronic kidney disease) Code(s): N18.9 - CHRONIC KIDNEY DISEASE, UNSPECIFIED (3) DVT prophylaxis Code(s): DTH6220 - (4) Diabetic ketoacidosis Code(s): E13.10 - OTH DIABETES MELLITUS WITH KETOACIDOSIS WITHOUT COMA (5) Diabetic neuropathy Code(s): E11.40 - TYPE 2 DIABETES MELLITUS WITH DIABETIC NEUROPATHY, UNSP (6) Ischemic foot Code(s): I99.8 - OTHER DISORDER OF CIRCULATORY SYSTEM (7) Right foot pain Code(s): M79.671 - PAIN IN RIGHT FOOT (8) Acute renal failure Code(s): N17.9 - ACUTE KIDNEY FAILURE, UNSPECIFIED Assessment/Plan Current Active Problems CKD (chronic kidney disease) (Acute) DVT prophylaxis (Acute) Diabetic ketoacidosis (Acute) Diabetic neuropathy (Acute) Ischemic foot (Acute) Right foot pain (Acute) Type 2 diabetes mellitus with hyperglycemia (Acute) Abnormal Lab Results 01/02/18 01/02/18 06:30 06:30 WBC 3.9 L Sodium 148 H Chloride 113 H Random Glucose 127 H Total Protein 6.3 L Albumin 2.7 L Laboratory Results - last 24 hr 01/01/18 01/01/18 01/01/18 12:35 12:39 16:24 WBC RBC Hgb Hct MCV MCH MCHC RDW Plt Count MPV Absolute Neuts (auto) Neutrophils % Lymphocytes % Monocytes % Eosinophils % Basophils % Nucleated RBC % Sodium Potassium Chloride Carbon Dioxide Anion Gap BUN Creatinine Creat Clearance w eGFR POC Glucometer < 50 > [phone] Random Glucose Calcium Phosphorus Magnesium Total Bilirubin AST ALT Alkaline Phosphatase Total Protein Albumin 01/01/18 01/02/18 01/02/18 21:59 06:19 06:30 WBC 3.9 L RBC 3.71 Hgb 11.4 Hct 34.0 MCV 91.6 MCH 30.7 MCHC 33.6 RDW 14.2 Plt Count 147 MPV 10.3 Absolute Neuts (auto) 2.0 Neutrophils % 51.9 Lymphocytes % 35.2 Monocytes % 9.6 Eosinophils % 2.3 Basophils % 1.0 Nucleated RBC % 0 Sodium Potassium Chloride Carbon Dioxide Anion Gap BUN Creatinine Creat Clearance w eGFR POC Glucometer 290 128 Random Glucose Calcium Phosphorus Magnesium Total Bilirubin AST ALT Alkaline Phosphatase Total Protein Albumin 01/02/18 06:30 WBC RBC Hgb Hct MCV MCH MCHC RDW Plt Count MPV Absolute Neuts (auto) Neutrophils % Lymphocytes % Monocytes % Eosinophils % Basophils % Nucleated RBC % Sodium 148 H Potassium 3.8 Chloride 113 H Carbon Dioxide 26 Anion Gap 9 BUN 14 Creatinine 0.7 Creat Clearance w eGFR > 60 POC Glucometer Random Glucose 127 H Calcium 8.5 Phosphorus 3.1 Magnesium 1.8 Total Bilirubin 0.3 AST 20 ALT 22 Alkaline Phosphatase 61 Total Protein 6.3 L Albumin 2.7 L plan: continue bgm scale Current Medications Generic Name Dose Route Start Last Admin Trade Name Saltyq PRN Reason Stop Dose Admin Acetaminophen 650 mg 01/01/18 07:25 Tylenol - PO Q4H PRN FEVER Aspirin 81 mg 01/01/18 10:00 01/02/18 09:51 Asa - PO 81 mg DAILY [facility] Administration Gabapentin 400 mg 01/01/18 14:00 01/02/18 06:20 Neurontin - PO 400 mg TID [facility] Administration Heparin Sodium (Porcine) 5,000 unit 01/01/18 14:00 01/02/18 06:20 Heparin - SQ 5,000 unit TID [facility] Administration Insulin Aspart 1 vial 12/31/17 23:12 01/02/18 06:21 Novolog Vial Sliding Scale - SQ Not Given [facility] Protocol Insulin Detemir 25 units 01/01/18 07:00 01/02/18 06:21 Levemir Vial SQ 25 units AM [facility] Administration Insulin Detemir 10 units 01/01/18 22:00 01/01/18 22:01 Levemir Vial SQ 10 units HS [facility] Administration Rosuvastatin Calcium 40 mg 12/31/17 22:15 01/01/18 22:00 Crestor - PO 40 mg HS [facility] Administration
--- NOTE | 2018-01-02 12:05 | PN ---
Progress Note, Physician Chief Complaint: patient is on med surg floor from icu admitted for hypergylcemia s/p insulin drip and hypernatremia - Current Medication List Current Medications: Active Medications Acetaminophen (Tylenol -) 650 mg PO Q4H PRN PRN Reason: FEVER Aspirin (Asa -) 81 mg PO DAILY [facility] Last Admin: 01/02/18 09:51 Dose: 81 mg Gabapentin (Neurontin -) 400 mg PO TID [facility] Last Admin: 01/02/18 06:20 Dose: 400 mg Heparin Sodium (Porcine) (Heparin -) 5,000 unit SQ TID [facility] Last Admin: 01/02/18 06:20 Dose: 5,000 unit Insulin Aspart (Novolog Vial Sliding Scale -) 1 vial SQ ACHS [facility]; Protocol Last Admin: 01/02/18 11:43 Dose: 10 units Insulin Detemir (Levemir Vial) 25 units SQ AM [facility] Last Admin: 01/02/18 06:21 Dose: 25 units Insulin Detemir (Levemir Vial) 10 units SQ HS [facility] Last Admin: 01/01/18 22:01 Dose: 10 units Rosuvastatin Calcium (Crestor -) 40 mg PO HS [facility] Last Admin: 01/01/18 22:00 Dose: 40 mg - Objective Vital Signs: Vital Signs Temperature 98.1 F 01/02/18 10:00 Pulse Rate 84 01/02/18 10:00 Respiratory Rate 20 01/02/18 10:00 Blood Pressure 142/98 01/02/18 10:00 O2 Sat by Pulse Oximetry (%) 99 01/01/18 21:00 Constitutional: Yes: Calm Neck: Yes: Trachea Midline Cardiovascular: Yes: Regular Rate and Rhythm, S1, S2 Respiratory: Yes: CTA Bilaterally Gastrointestinal: Yes: Normal Bowel Sounds, Soft Edema: Yes Neurological: Yes: Alert, Oriented Labs: CBC, BMP 01/02/18 06:30 01/02/18 06:30 Problem List - Problems (1) Diabetic neuropathy Assessment/Plan: on neurontin 400mg tid neurology on board Code(s): E11.40 - TYPE 2 DIABETES MELLITUS WITH DIABETIC NEUROPATHY, UNSP (2) Type 2 diabetes mellitus with hyperglycemia Assessment/Plan: endocrine on board on insulin bgm noted better control Code(s): E11.65 - TYPE 2 DIABETES MELLITUS WITH HYPERGLYCEMIA (3) Dehydration with hypernatremia Assessment/Plan: improving with free water intake Code(s): E87.0 - HYPEROSMOLALITY AND HYPERNATREMIA (4) Hyperlipidemia Assessment/Plan: on statin Code(s): E78.5 - HYPERLIPIDEMIA, UNSPECIFIED
--- NOTE | 2018-01-02 12:08 | PN ---
Progress Note (short form) - Note Progress Note: Appears stable. No CP or SOB. No acute events overnight. Seen by Endocrine. Intake & Output 12/30/17 12/31/17 01/01/18 01/02/18 23:59 23:59 23:59 23:59 Intake Total 2380 1520 Output Total 1 Balance 2380 1519 Weight 150 lb 200 lb 11.2 oz 200 lb Last Vital Signs Temp Pulse Resp BP Pulse Ox 98.1 F 84 20 142/98 99 01/02/18 10:00 01/02/18 10:00 01/02/18 10:00 01/02/18 10:00 01/01/18 21:00 Active Medications Acetaminophen (Tylenol -) 650 mg PO Q4H PRN PRN Reason: FEVER Aspirin (Asa -) 81 mg PO DAILY [facility] Last Admin: 01/02/18 09:51 Dose: 81 mg Gabapentin (Neurontin -) 400 mg PO TID [facility] Last Admin: 01/02/18 06:20 Dose: 400 mg Heparin Sodium (Porcine) (Heparin -) 5,000 unit SQ TID [facility] Last Admin: 01/02/18 06:20 Dose: 5,000 unit Insulin Aspart (Novolog Vial Sliding Scale -) 1 vial SQ [facility]; Protocol Last Admin: 01/02/18 11:43 Dose: 10 units Insulin Detemir (Levemir Vial) 25 units SQ AM [facility] Last Admin: 01/02/18 06:21 Dose: 25 units Insulin Detemir (Levemir Vial) 10 units SQ HS [facility] Last Admin: 01/01/18 22:01 Dose: 10 units Rosuvastatin Calcium (Crestor -) 40 mg PO HS [facility] Last Admin: 01/01/18 22:00 Dose: 40 mg GENERAL: Awake, alert, and fully oriented, NAD HEAD: Normal with no signs of trauma. EYES: Pupils equal, round and reactive to light, extraocular movements intact, sclera anicteric, conjunctiva clear. No lid lag. EARS, Moist mucous membranes. NECK: supple LUNGS: Breath sounds equal, clear to auscultation bilaterally. HEART: Regular rate and rhythm, normal S1 and S2 ABDOMEN: Soft, NT, ND, (+) BS, no guarding, no rebound, no masses. MUSCULOSKELETAL: No CVA tenderness. UPPER EXTREMITIES: 2+ pulses, warm, well-perfused. No peripheral edema. LOWER EXTREMITIES: L foot warm 2+ pulse, and well perfused. R foot: cool, toes deformed and missing nail beds. NEUROLOGICAL: Non-focal. PSYCHIATRIC: Cooperative. Good eye contact. Appropriate mood and affect. SKIN: Warm, dry Laboratory Results - last 24 hr 01/01/18 01/01/18 01/01/18 12:35 12:39 16:24 WBC RBC Hgb Hct MCV MCH MCHC RDW Plt Count MPV Absolute Neuts (auto) Neutrophils % Lymphocytes % Monocytes % Eosinophils % Basophils % Nucleated RBC % Sodium Potassium Chloride Carbon Dioxide Anion Gap BUN Creatinine Creat Clearance w eGFR POC Glucometer < 50 > [phone] Random Glucose Calcium Phosphorus Magnesium Total Bilirubin AST ALT Alkaline Phosphatase Total Protein Albumin 01/01/18 01/02/18 01/02/18 21:59 06:19 06:30 WBC 3.9 L RBC 3.71 Hgb 11.4 Hct 34.0 MCV 91.6 MCH 30.7 MCHC 33.6 RDW 14.2 Plt Count 147 MPV 10.3 Absolute Neuts (auto) 2.0 Neutrophils % 51.9 Lymphocytes % 35.2 Monocytes % 9.6 Eosinophils % 2.3 Basophils % 1.0 Nucleated RBC % 0 Sodium Potassium Chloride Carbon Dioxide Anion Gap BUN Creatinine Creat Clearance w eGFR POC Glucometer 290 128 Random Glucose Calcium Phosphorus Magnesium Total Bilirubin AST ALT Alkaline Phosphatase Total Protein Albumin 01/02/18 01/02/18 06:30 11:37 WBC RBC Hgb Hct MCV MCH MCHC RDW Plt Count MPV Absolute Neuts (auto) Neutrophils % Lymphocytes % Monocytes % Eosinophils % Basophils % Nucleated RBC % Sodium 148 H Potassium 3.8 Chloride 113 H Carbon Dioxide 26 Anion Gap 9 BUN 14 Creatinine 0.7 Creat Clearance w eGFR > 60 POC Glucometer 363 Random Glucose 127 H Calcium 8.5 Phosphorus 3.1 Magnesium 1.8 Total Bilirubin 0.3 AST 20 ALT 22 Alkaline Phosphatase 61 Total Protein 6.3 L Albumin 2.7 L - Problems (1) Right foot pain Code(s): M79.671 - PAIN IN RIGHT FOOT (2) DVT prophylaxis Code(s): KLY8237 - (3) Dehydration with hypernatremia Code(s): E87.0 - HYPEROSMOLALITY AND HYPERNATREMIA (4) Diabetes mellitus with hyperosmolarity, with long-term current use of insulin Code(s): E11.00 - TYPE 2 DIAB W HYPROSM W/O NONKET HYPRGLY-HYPROS COMA ([facility]); 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
--- NOTE | 2018-01-02 12:50 | DS ---
Physical Examination Vital Signs: Vital Signs Temperature 98.1 F 01/02/18 10:00 Pulse Rate 84 01/02/18 10:00 Respiratory Rate 20 01/02/18 10:00 Blood Pressure 142/98 01/02/18 10:00 O2 Sat by Pulse Oximetry (%) 99 01/01/18 21:00 Constitutional: Yes: Calm, Thin Cardiovascular: Yes: Regular Rate and Rhythm, S1, S2 Respiratory: Yes: CTA Bilaterally Gastrointestinal: Yes: Normal Bowel Sounds, Soft Neurological: Yes: Alert, Oriented Labs: CBC, BMP 01/02/18 06:30 01/02/18 06:30 Discharge Summary Reason For Visit: DIABETIC KETOACIDOSIS Current Active Problems CKD (chronic kidney disease) (Acute) DVT prophylaxis (Acute) Diabetic ketoacidosis (Acute) Diabetic neuropathy (Acute) Ischemic foot (Acute) Right foot pain (Acute) Type 2 diabetes mellitus with hyperglycemia (Acute) Hospital Course: CHIEF COMPLAINT: Elevated BS, Dysuira PCP: Dr. Darion Morales HISTORY OF PRESENT ILLNESS: 62 y/o woman PMH poorly controlled DM. Who presents to the ED with elevated BS and dysuria. Patient is Hungarian speaking, general dentist/owner used. Patient reports increased thirst and urination x several days. She reports seeing her PCP recently with no change to her medication regimen. Patient denies fever, chills , cough, SOB, CP, palpitations, AP, N/V/D, constipation. ER course was notable for: (1) Glucose 761 (2) Na 146 (3) Serum Ketones- positive +2 hospital: patient was in ICU in insulin drip and then bgm improved and then transferred to the floor now bgm better controlled hypernatremia is improving diabetic neuropathy on neurontin HLD on statin now patient lonnie discharge home she is ambulating in her room Condition: Guarded - Instructions Disposition: VNS/HOME HEALTH CARE - Home Medications Comprehensive Discharge Medication List: Ambulatory Orders Aspirin Coated [Ecotrin -] 81 mg PO DAILY tablet.ec 06/28/17 Insulin Aspart [Novolog Flexpen] 10 unit SQ AC 11/01/17 Insulin Detemir [Levemir Flextouch] 14 unit SQ AM 11/01/17
--- NOTE | 2018-01-02 13:57 | PN ---
Progress Note, Physician History of Present Illness: Pt seen and examined at bedside. She is awake and alert. She is eager to go home. - Current Medication List Current Medications: Active Medications Acetaminophen (Tylenol -) 650 mg PO Q4H PRN PRN Reason: FEVER Aspirin (Asa -) 81 mg PO DAILY [facility] Last Admin: 01/02/18 09:51 Dose: 81 mg Gabapentin (Neurontin -) 400 mg PO TID [facility] Last Admin: 01/02/18 13:40 Dose: 400 mg Heparin Sodium (Porcine) (Heparin -) 5,000 unit SQ TID [facility] Last Admin: 01/02/18 13:40 Dose: 5,000 unit Insulin Aspart (Novolog Vial Sliding Scale -) 1 vial SQ [facility]S [facility]; Protocol Last Admin: 01/02/18 11:43 Dose: 10 units Insulin Detemir (Levemir Vial) 25 units SQ AM [facility] Last Admin: 01/02/18 06:21 Dose: 25 units Insulin Detemir (Levemir Vial) 10 units SQ HS [facility] Last Admin: 01/01/18 22:01 Dose: 10 units Rosuvastatin Calcium (Crestor -) 40 mg PO HS [facility] Last Admin: 01/01/18 22:00 Dose: 40 mg - Objective Vital Signs: Vital Signs Temperature 98.1 F 01/02/18 10:00 Pulse Rate 84 01/02/18 10:00 Respiratory Rate 20 01/02/18 10:00 Blood Pressure 142/98 01/02/18 10:00 O2 Sat by Pulse Oximetry (%) 99 01/01/18 21:00 Constitutional: Yes: Calm Eyes: Yes: Conjunctiva Clear HENT: Yes: Atraumatic Neck: Yes: Supple Cardiovascular: Yes: S1, S2 Respiratory: Yes: CTA Bilaterally Gastrointestinal: Yes: Soft Genitourinary: Yes: WNL Musculoskeletal: Yes: WNL Edema: No Neurological: Yes: Oriented Psychiatric: Yes: Oriented Labs: CBC, BMP 01/02/18 06:30 01/02/18 06:30 Problem List - Problems (1) Type 2 diabetes mellitus with hyperglycemia Code(s): E11.65 - TYPE 2 DIABETES MELLITUS WITH HYPERGLYCEMIA (2) Hypernatremia Code(s): E87.0 - HYPEROSMOLALITY AND HYPERNATREMIA Assessment/Plan Current Medications Generic Name Dose Route Start Last Admin Trade Name Freq PRN Reason Stop Dose Admin Acetaminophen 650 mg 01/01/18 07:25 Tylenol - PO Q4H PRN FEVER Aspirin 81 mg 01/01/18 10:00 01/02/18 09:51 Asa - PO 81 mg DAILY JULIANA Administration Gabapentin 400 mg 01/01/18 14:00 01/02/18 13:40 Neurontin - PO 400 mg TID JULIANA Administration Heparin Sodium (Porcine) 5,000 unit 01/01/18 14:00 01/02/18 13:40 Heparin - SQ 5,000 unit TID [facility] Administration Insulin Aspart 1 vial 12/31/17 23:12 01/02/18 11:43 Novolog Vial Sliding Scale - SQ 10 units ACHS JULIANA Administration Protocol Insulin Detemir 25 units 01/01/18 07:00 01/02/18 06:21 Levemir Vial SQ 25 units AM [facility] Administration Insulin Detemir 10 units 01/01/18 22:00 01/01/18 22:01 Levemir Vial SQ 10 units HS [facility] Administration Rosuvastatin Calcium 40 mg 12/31/17 22:15 01/01/18 22:00 Crestor - PO 40 mg HS [facility] Administration Impression 1. hypernatremia 2. azotemia 3. DM poorly controlled 4. HTN 5. hypercalcemia 6. hx of CVA 7. dehydration Plan - renal function stable - will need close outpt follow up - discussed with medical team - monitor blood sugar - hyperglycemia causing dehydration and hypernatremia - will follow
== END 2018-01-02 17:21 | disposition home health service (06) | DRG 460 ==
LOC: JER 22:55 → JERBED 12-31 04:54 → JICU 12-31 06:27 → J6S 01-01 17:13
PROVIDERS: ADMIT Internal Medicine; ATTEND Family Medicine
DX: N17.9 Acute kidney failure, unspecified (principal); E11.10 Type 2 diabetes mellitus with ketoacidosis without coma; M79.671 Pain in right foot; I10 Essential (primary) hypertension; F32.9 Major depressive disorder, single episode, unspecified; E11.65 Type 2 diabetes mellitus with hyperglycemia; E87.0 Hyperosmolality and hypernatremia; I99.8 Other disorder of circulatory system; E11.40 Type 2 diabetes mellitus with diabetic neuropathy, unspecified; I12.9 Hypertensive chronic kidney disease with stage 1 through stage 4 chronic kidney disease, or unspecified chronic kidney disease; E11.22 Type 2 diabetes mellitus with diabetic chronic kidney disease; N18.9 Chronic kidney disease, unspecified; E86.0 Dehydration; Z79.4 Long term (current) use of insulin; Z86.73 Personal history of transient ischemic attack (TIA), and cerebral infarction without residual deficits; Z89.422 Acquired absence of other left toe(s)
CPT/HCPCS: 36415; 36600; 71045-TC-FY; 80048; 80053; 80061; 81003; 82009; 82607; 82803; 82962; 83036; 83605; 83721; 83735; 84100; 84439; 84443; 85025; 93005; 93010; 99283-25; J1644

== ENCOUNTER 2018-03-08 13:34 | Emergency (ER) | payer OTHER ==
[2018-03-08 13:51] VITALS: BP 118/85; PULSE 94; TEMP 98.9; BMI 30.2
--- NOTE | 2018-03-08 14:23 | PDOC ---
History of Present Illness - General Chief Complaint: Abscess Boil Stated Complaint: ABSCESS BOIL Time Seen by Provider: 03/08/18 14:07 History Source: Patient Exam Limitations: No Limitations - History of Present Illness Initial Comments: CHIEF COMPLAINT: 62 y/o female with PMH IDDM, HLD c/o abscess to b/l underarms x 1 week. HISTORY OF PRESENT ILLNESS: The patient denies streaking or warmth to affected areas. She states she felt warm yesterday but did not take a temperature. Vital signs on arrival are within normal limits. REVIEW OF SYSTEMS: GENERAL/CONSTITUTIONAL: ?fever yesterday. MUSCULOSKELETAL: No joint or muscle swelling or pain. No neck or back pain. SKIN: +abscess to b/l axilla NEUROLOGIC: No headache, vertigo, loss of consciousness, or loss of sensation. PHYSICAL EXAM: GENERAL: The patient is awake, alert, and fully oriented, in no acute distress. She is well appearing and ambulatory. EXTREMITIES: Normal range of motion, no edema. NEUROLOGICAL: Normal speech, normal gait. CN II-XII grossly intact. SKIN: 4 hard, non fluctuant abscess to right axilla, two of them are 0.5cm in diameter and the other 2 are smaller. There is one 0.5cm in diameter, hard, non -fluctuant abscess to left axilla that has a central opening with slight purulent discharge. There is also a smaller one that is hard in the left axilla. There is no streaking Past History - Past Medical History Allergies/Adverse Reactions: Allergies Allergy/AdvReac Type Severity Reaction Status Date / Time No Known Allergies Allergy Verified 03/08/18 13:47 Home Medications: Ambulatory Orders Aspirin [ASA -] 81 mg PO DAILY tab.chew 01/02/18 Gabapentin [Neurontin -] 400 mg PO TID #30 capsule MDD 3 01/02/18 Insulin (Levemir) [Levemir Vial] 25 units SQ AM #100 units 01/02/18 Rosuvastatin [Crestor -] 40 mg PO HS #30 tablet MDD 1 01/02/18 Cephalexin Monohydrate [Keflex -] 500 mg PO Q8H #21 capsule 03/08/18 Sulfamethoxazole/Trimethoprim [Bactrim Ds -] 1 tab PO BID #14 tablet 03/08/18 Asthma: No CVA: Yes COPD: No Diabetes: Yes HTN: Yes Psychiatric Problems: Yes (Depression) Thyroid Disease: No - Surgical History Neurologic Surgery: No - Immunization History Immunization Up to Date: No - Suicide/Smoking/Psychosocial Hx Smoking History: Never smoked Have you smoked in the past 12 months: No Hx Alcohol Use: No Drug/Substance Use Hx: No Substance Use Type: None Hx Substance Use Treatment: No *Physical Exam - Vital Signs Last Vital Signs Temp Pulse Resp BP Pulse Ox 98.9 F 94 H 18 118/85 99 03/08/18 13:48 03/08/18 13:48 03/08/18 13:48 03/08/18 13:48 03/08/18 13:48 Medical Decision Making - Medical Decision Making A/P: 62 y/o female, IDDM, with multiple, b/l hard, non-fluctuant abscesses to b /l axillae. Nothing to I&D. The one boil that is draining was sent for culture. Will discharge with rx for bactrim and keflex. INstructed her to apply warm compresses, follow up with PMD within 1 week and return to the ER with any worsening or concerning symptoms. The patient verbalizes understanding of all instructions, has no further questions and is awaiting discharge. *DC/Admit/Observation/Transfer Diagnosis at time of Disposition: Abscesses of both axillae - Discharge Dispostion Disposition: HOME Condition at time of disposition: Good - Prescriptions Prescriptions: Cephalexin Monohydrate [Keflex -] 500 mg PO Q8H #21 capsule Sulfamethoxazole/Trimethoprim [Bactrim Ds -] 1 tab PO BID #14 tablet - Referrals Referrals: Gonsalo Gr MD [Staff Physician] - - Patient Instructions Printed Discharge Instructions: DI for Skin Abscess Additional Instructions: Discharge Instructions: -You have an infection in both underarms -2 prescriptions for antibiotics has been sent to your pharmacy; please start taking today -Apply warm/hot compresses to both underarms every hour until improved -Follow up with your doctor or with Dr. Gr within 1 week -Return to the ER with any worsening or concerning symptoms Instrucciones de descarga: -Tienes jyoti infeccin en ambas axilas -2 recetas para antibiticos feliz sido enviadas a blair farmacia; por favor comienza a ramsey hoy -Aplicar compresas calientes / calientes a ambas axilas cada hora hasta que mejoren -Siga con blair mdico o con el Dr. Gr dentro de 1 semana -Volver a la danielle de urgencias con cualquier empeoramiento o sntomas Print Language: SERBIAN - Post Discharge Activity
== END 2018-03-08 14:45 | disposition home or self-care (01) ==
LOC: JERFT 13:34
DX: L02.412 Cutaneous abscess of left axilla (principal); L02.411 Cutaneous abscess of right axilla; I10 Essential (primary) hypertension; E78.00 Pure hypercholesterolemia, unspecified; E11.9 Type 2 diabetes mellitus without complications; Z79.4 Long term (current) use of insulin; F32.9 Major depressive disorder, single episode, unspecified; Z86.73 Personal history of transient ischemic attack (TIA), and cerebral infarction without residual deficits
CPT/HCPCS: 87070; 87186; 87205; 99281-25

== ENCOUNTER 2018-05-19 13:09 | Inpatient (IN) | payer OTHER ==
--- NOTE | 2018-05-19 13:48 | PDOC ---
History of Present Illness - General Chief Complaint: Weakness Stated Complaint: WEAKNESS Time Seen by Provider: 05/19/18 13:47 - History of Present Illness Initial Comments: Anastasia Patel is a 62yo woman with a PMH of HTN and poorly controlled DM, multiple prior admissions for hyperglycemia and DKA, who presents reporting high blood glucose readings and urinary frequency for several days. She is unable to state how high her sugars have been at home, just that they have been "very high." She additionally complains of lower abdominal pain. She denies any fevers, chills, hematuria, change in bowel habits, nausea, or vomiting. She is unable to report whether she has been taking her medications as prescribed at home. Past History - Past Medical History Allergies/Adverse Reactions: Allergies Allergy/AdvReac Type Severity Reaction Status Date / Time No Known Allergies Allergy Verified 05/19/18 13:34 Home Medications: Ambulatory Orders Aspirin [ASA -] 81 mg PO DAILY tab.chew 01/02/18 Gabapentin [Neurontin -] 400 mg PO TID #30 capsule MDD 3 01/02/18 Insulin (Levemir) [Levemir Vial] 25 units SQ AM #100 units 01/02/18 Rosuvastatin [Crestor -] 40 mg PO HS #30 tablet MDD 1 01/02/18 Cephalexin Monohydrate [Keflex -] 500 mg PO Q8H #21 capsule 03/08/18 Sulfamethoxazole/Trimethoprim [Bactrim Ds -] 1 tab PO BID #14 tablet 03/08/18 Asthma: No CVA: Yes COPD: No Diabetes: Yes HTN: Yes Psychiatric Problems: Yes (Depression) Thyroid Disease: No - Surgical History Neurologic Surgery: No - Immunization History Immunization Up to Date: No - Suicide/Smoking/Psychosocial Hx Smoking History: Never smoked Have you smoked in the past 12 months: No Information on smoking cessation initiated: No Hx Alcohol Use: No Drug/Substance Use Hx: No Substance Use Type: None Hx Substance Use Treatment: No Review of Systems - Review of Systems Comments:: General: No fevers, no chills, no weight or appetite change, no malaise HEENT: No changes in vision, no changes in hearing, no congestion, no sore throat CV: No chest pain, no palpitations, no LE edema Pulm: No SOB, no cough, no wheezing GI: No nausea or vomiting, no change in bowel habits, no melena. +low abdominal pain : +Frequency and nocturia. No urgency, no dysuria Musc: No back pain, no joint swelling, no recent injury Skin: No rash, no lesions, no erythema Endo: +High blood glucose at home. No heat/cold intolerance Heme: No unusual bruising or bleeding, no swollen glands Neuro: No syncope, no numbness/tingling, no focal weakness Vasc: No claudication Psych: No recent change in mood, no SI or HI *Physical Exam - Vital Signs Last Vital Signs Temp Pulse Resp BP Pulse Ox 98.5 F 91 H 16 133/83 100 05/19/18 13:09 05/19/18 13:09 05/19/18 13:09 05/19/18 13:09 05/19/18 13:09 - Physical Exam Comments: General: Comfortable, no acute distress HEENT: PERRL, EOMI, MMM, voice normal, normal neck ROM, no LAD Cards: RRR, no murmur appreciated Pulm: Comfortable on room air, clear to auscultation bilaterally Abd: Soft, nondistended. TTP in lower abdomen, equal tenderness b/l : No CVA tenderness Ext: Atraumatic. No LE edema. ROM intact. Strength 5/5 and equal bilaterally Vasc: Extremities WWP. Neuro: A&Ox3, CN grossly intact, normal speech, motor/sensory grossly intact and symmetric Psych: Mood appropriate to situation ED Treatment Course - LABORATORY CBC & Chemistry Diagram: 05/19/18 14:50 05/19/18 14:50 Medical Decision Making - Medical Decision Making 05/19/18 14:53 Anastasia Patel is a 62yo woman with a PMH of HTN and DM with multiple prior admissions for DKA and hyperglycemia who presents reporting high blood glucose readings, urinary frequency, and lower abdominal pain at home for several days. - Concern for DKA, potentially UTI as a cause of uncontrolled glucose. May also be noncompliance as pt's diabetes appears poorly controlled. - CBC, CMP, VBG, serum b-hydroxybuterate and acetone, UA, UCx ordered to evaluate - If hyperglycemic or in DKA, will need IVF and probably potassium 05/19/18 15:45 - Labs reviewed. Notable for glucose of 489. Potassium 4.8. BUN 22, Cr 1.1. Anion gap slightly low at 7. - No sign of DKA - 2L NS bolus ordered for rehydration - CT abd/pelvis w/ contrast ordered. When examined by Dr Brush, c/o more LLQ pain. CT to r/o diverticulitis, colitis, cystitis. - Given report of urinary frequency, more likely UTI or cystitis, probably the cause of the elevated glucose recently 05/19/18 16:26 - UA negative - CT pending. If no acute pathology, will most likely discharge home with PMD or endocrinology 05/19/18 18:31 - CT completed. Reviewed. Bladder noted to be enlarged, though radiology read pending. - Plan to have pt void and obtain post-void residual 05/19/18 20:05 - Post-void residual 14.4cc on bedside US - CT read reviewed. No acute pathology noted - IVF still running. Once completed, will check BGM. Likely to d/c home if decreased. 05/19/18 21:34 - BGM reading "high" - over 500 - 8u SQ novolog ordered - Repeat BMP ordered for re-evaluation 05/19/18 22:26 - BMP hemolized. However, spoke to lab - glucose was 628 - BMG ordered; still over range (over 500) - Microblog sent to hospitalist team for admission for persistent hyperglycemia Seen and discussed with Dr Moeller and Dr Brush. Shweta Pink PGY1 *DC/Admit/Observation/Transfer Diagnosis at time of Disposition: Hyperglycemia - Discharge Dispostion Decision to Admit order: Yes - Referrals Referrals: Darion Morales [Primary Care Provider] - - Patient Instructions Printed Discharge Instructions: DI for Hyperglycemia -- Adult Additional Instructions: Discharge Instructions: - You were seen in the ED for high blood sugar and abdominal pain. - You had blood tests, a CT scan, and a urine test. There was no sign of infection that could be causing your abdominal pain or high blood sugar. - Please continue to use your medications at home as prescribed. Check your blood sugars regularly. - Call your regular doctor and your x ray developer on Monday to make follow up appointments. - Seek immediate medical care if you have worsening of your abdominal pain, cannot control your blood sugar, or have a medical emergency such as chest pain or shortness of breath. Instrucciones de descarga: - Usted fue visto en el servicio de urgencias por niveles altos de azcar en lito y dolor abdominal - Le hicieron anlisis de lito, jyoti tomografa computarizada y un anlisis de orina. No haba signos de infeccin que pudieran estar causando dolor abdominal o un alto nivel de azcar en la lito. - Por favor contine usando rain medicamentos en casa segn lo prescrito. Revise rain niveles de azcar en la lito con regularidad. - Llame a blair mdico de cabecera y blair endocrinlogo el lunes para hacer citas de seguimiento. - Busque atencin mdica inmediata si empeora blair dolor abdominal, no puede controlar el azcar en la lito o tiene jyoti emergencia mdica mauricio dolor en el pecho o dificultad para respirar. Print Language: PASHTO - Post Discharge Activity
[2018-05-19 14:53] LABS: VENOUS PC02 48.2 mmHg (38-52); VENOUS PH 7.4 (7.32-7.42)
[2018-05-19 15:13] LABS: BASO % 0.3 % (0-2.0); EOS % 0.2 % (0-4.5); HEMATOCRIT 38.3 % (32.4-45.2); LYMPH % 21.1 % (8-40); MCH 30.5 pg (25.7-33.7); MCHC 34.1 g/dl (32.0-36.0); MEAN CELL VOLUME 89.5 fl (80-96); MEAN PLT VOLUME 10.8 fl (7.5-11.1); MONO % 4.9 % (3.8-10.2); NEUT % 73.5 % (42.8-82.8); PLATELET COUNT 196 K/MM3 (134-434); RBC 4.27 M/mm3 (3.60-5.2); RDW 15.4 % (11.6-15.6); WHITE BLOOD COUNT 6.2 K/mm3 (4.0-10.0)
[2018-05-19 15:27] LABS: ALBUMIN 3.4 g/dl (3.4-5.0); ALK PHOS 84 U/L (45-117); ANION GAP 7 MMOL/L (8-16); BILIRUBIN,TOTAL 0.3 mg/dL (0.2-1); BLOOD UREA NITROGEN 22 mg/dL (7-18); CALCIUM 9.6 mg/dL (8.5-10.1); CHLORIDE 102 mmol/L (98-107); CO2 29 mmol/L (21-32); CREATININE 1.1 mg/dL (0.55-1.3); POTASSIUM 4.8 mmol/L (3.5-5.1); SGOT/AST 22 U/L (15-37); SGPT/ALT 27 U/L (13-61); SODIUM 138 mmol/L (136-145); TOT PROT 7.7 g/dl (6.4-8.2)
[2018-05-19 15:41] LABS: GLUCOSE,RANDOM 489 mg/dL (74-106)
[2018-05-19] MEDS ORDERED: SODIUM CHLORIDE 0.9% 500 ML INFUS.BAG IV ONE (15:41)
[2018-05-19 15:43] LABS: URINE APPEARANCE CLEAR; URINE BILIRUBIN NEGATIVE (<2.0 mg/dL); URINE COLOR STRAW; URINE GLUCOSE (UA) 3+ (NEGATIVE); URINE KETONE TRACE (NEGATIVE); URINE LEUK ESTERASE NEGATIVE (NEGATIVE); URINE NITRITE NEGATIVE (NEGATIVE); URINE PROTEIN NEGATIVE (NEGATIVE); URINE UROBILINOGEN NEGATIVE mg/dL (0.2-1.0)
--- NOTE | 2018-05-19 15:48 | PDOC ---
Attending Attestation - Resident Resident Name: Shweta Pink - ED Attending Attestation I have performed the following: I have examined & evaluated the patient, The case was reviewed & discussed with the resident, I agree w/resident's findings & plan, Exceptions are as noted - Medical Decision Making 05/19/18 15:46 A portion of this note was documented by scribe services under my direction. I have reviewed the details of the note, within reason, and agree with the documentation with the following case summary and management plan written by me. Patient treated in the ED. Nursing notes are reviewed and incorporated into the medical decision-making. Vital signs reviewed. Peripheral IV access obtained by the nurse, laboratory studies are drawn and sent, reviewed and interpreted by myself. Vital Signs Temp Pulse Resp BP Pulse Ox 98.5 F 91 H 16 133/83 100 05/19/18 13:09 05/19/18 13:09 05/19/18 13:09 05/19/18 13:09 05/19/18 13:09 62 year old female with past medical history of hypertension, diabetes presents with approximately 2 weeks of polyuria. The patient reports that her glucose is typically in the 140s. However, in the last 2 weeks her sugar has been fluctuating to hyperglycemia to normoglycemia. She reports adherence to her insulin. She noted some mild dysuria. However, lately the patient has noted some left lower quadrant pain associated with this. However, denies any nausea, vomiting, diarrhea. The patient went to an urgent care but sent the patient to the ER for further evaluation. CBC, BMP 05/19/18 14:50 05/19/18 14:50 CMP Sodium 138 mmol/L (136-145) 05/19/18 14:50 Potassium 4.8 mmol/L (3.5-5.1) 05/19/18 14:50 Chloride 102 mmol/L (98-107) 05/19/18 14:50 Carbon Dioxide 29 mmol/L (21-32) 05/19/18 14:50 Anion Gap 7 MMOL/L (8-16) L 05/19/18 14:50 BUN 22 mg/dL (7-18) H 05/19/18 14:50 Creatinine 1.1 mg/dL (0.55-1.3) 05/19/18 14:50 Creat Clearance w eGFR 50.01 (>60) 05/19/18 14:50 Random Glucose 489 mg/dL (74-106) H* 05/19/18 14:50 Calcium 9.6 mg/dL (8.5-10.1) 05/19/18 14:50 Total Bilirubin 0.3 mg/dL (0.2-1) 05/19/18 14:50 AST 22 U/L (15-37) 05/19/18 14:50 ALT 27 U/L (13-61) 05/19/18 14:50 Alkaline Phosphatase 84 U/L (45-117) 05/19/18 14:50 Total Protein 7.7 g/dl (6.4-8.2) 05/19/18 14:50 Albumin 3.4 g/dl (3.4-5.0) 05/19/18 14:50 The patient noted be hyperglycemic here 489 but no anion gap. Unlikely to be diabetes ketoacidosis. However, there is some concerns that the patient may have urinary tract infection leading to hyperglycemia. We'll attempt to control sugars by giving IV fluids. The patient does have left for quadrant tenderness so we will obtain a CAT scan rule out diverticulitis, colitis. The patient overall appears nontoxic appearing. She with the patient has a an uncomplicated pathology such as diverticulitis or cystitis, the patient can go home on antibiotics. However, if the patient has a, care process, the patient should be considered for admission to the hospital. <Ezequiel Brush - Last Filed: 05/19/18 15:48> - HPI HPI: 05/19/18 16:45 The patient is a 62-year-old female, with a past medical history of HTN and IDDM , who presents to the ED with 2 weeks of increased urinary frequency. She reports associated mild dysuria and LLQ pain. The patient has also noted that her BS has been fluctuating between high and normal levels; she has been compliant with her insulin medication. Patient went to an urgent care but was sent to the ED for further evaluation. The patient denies chest pain, shortness of breath, dizziness and headache. Denies fever, chills, nausea, vomiting, diarrhea and constipation. Denies urgency and hematuria. - Physicial Exam PE: 05/19/18 15:58 GENERAL: Awake, alert, and fully oriented, in no acute distress HEAD: No signs of trauma EYES: PERRLA, EOMI, sclera anicteric, conjunctiva clear ENT: (+)Dry mucous membranes. Auricles normal inspection, hearing grossly normal , nares patent. NECK: Normal ROM, supple, JVD, or masses LUNGS: Breath sounds equal, clear to auscultation bilaterally. No wheezes, and no crackles HEART: Regular rate and rhythm, normal S1 and S2, no murmurs, rubs or gallops ABDOMEN: (+)LLQ tenderness to palpation. Soft, normoactive bowel sounds. No guarding, no rebound. No masses EXTREMITIES: Normal range of motion, no edema. No clubbing or cyanosis. No cords, erythema, or tenderness NEUROLOGICAL: Cranial nerves II through XII grossly intact. Normal speech. SKIN: Warm, Dry, normal turgor, no rashes or lesions noted. <Lynda Farmer - Last Filed: 05/19/18 16:46> Heart Score/ECG Review #1 ECG reviewed & interpreted by me at: 13:25 05/19/18 15:48 NSR 89, no std/arya, normal axis, normal intervals, Q wave III, QTC 433 msec <Ezequiel Brush - Last Filed: 05/19/18 15:48> Attestations - Attestations 05/19/18 16:45 Documentation prepared by Lynda Farmer, acting as medical physiologist for Ezequiel Brush MD. <Lynda Farmer - Last Filed: 05/19/18 16:46>
[2018-05-19 19:01] LABS: ARTERIAL BLD GAS O2 SATURATION 97.4 % (90-98.9); ARTERIAL BLOOD GAS BASE EXCESS 0.8 meq/l (-2-2); ARTERIAL BLOOD GAS PCO2 41.1 mmHg (35-45); ARTERIAL BLOOD GAS PO2 97.7 mmHg (80-100)
[2018-05-19 19:02] LABS: ALLENS TEST POSITIVE
[2018-05-19] MEDS ORDERED: INSULIN (NOVOLOG) ASPART 100 UNITS/ML 10ML VIAL SQ ONE ×2 (20:36→23:15)
[2018-05-19] MEDS ORDERED: INSULIN (NOVOLOG) ASPART 100 UNITS/ML 10ML VIAL ONE ×2 (21:10→23:23)
[2018-05-19 23:01] LABS: ANION GAP 8 MMOL/L (8-16); BLOOD UREA NITROGEN 20 mg/dL (7-18); CALCIUM 8.5 mg/dL (8.5-10.1); CHLORIDE 107 mmol/L (98-107); CO2 27 mmol/L (21-32); CREATININE 1.2 mg/dL (0.55-1.3); POTASSIUM 4.5 mmol/L (3.5-5.1); SODIUM 142 mmol/L (136-145)
--- NOTE | 2018-05-19 23:01 | HP ---
Admitting History and Physical - Primary Care Physician PCP: Meghann Limon - Admission Chief Complaint: Abdominal Pain, Hyperglycemia History of Present Illness: This is a 62 y/o woman with a past medical history of Uncontrolled DM, Neuropathy, HLD. Who presents to the ED with abdominal pain and elevated blood sugar. Patient is Indonesian speaking [employer] line used # [id number]. Patient reports having lower abdominal pain, dizziness, polyuria, and dysuria at home. She reports checking her blood glucose and the reading said "High". She was seen at urgent care and was sent in for further evaluation. Patient denies fever, chills, cough , LEE, SOB, CP, Palpitations, N/V/D. 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) Endocrine: Yes: Diabetes Mellitus - Past Surgical History Past Surgical History: Yes: Hysterectomy (and BSO-- for fibroids), Tubal Ligation - Smoking History Smoking history: Never smoked Have you smoked in the past 12 months: No - Alcohol/Substance Use Hx Alcohol Use: No History of Substance Use: reports: None - Social History ADL: Independent Occupation: retired History of Recent Travel: No Home Medications - Allergies Allergies/Adverse Reactions: Allergies Allergy/AdvReac Type Severity Reaction Status Date / Time No Known Allergies Allergy Verified 05/19/18 13:34 - Home Medications Home Medications: Ambulatory Orders Aspirin [ASA -] 81 mg PO DAILY tab.chew 01/02/18 Gabapentin [Neurontin -] 400 mg PO TID #30 capsule MDD 3 01/02/18 Insulin (Levemir) [Levemir Vial] 25 units SQ AM #100 units 01/02/18 Rosuvastatin [Crestor -] 40 mg PO HS #30 tablet MDD 1 01/02/18 Cephalexin Monohydrate [Keflex -] 500 mg PO Q8H #21 capsule 03/08/18 Sulfamethoxazole/Trimethoprim [Bactrim Ds -] 1 tab PO BID #14 tablet 03/08/18 Family Disease History - Family Disease History Family Disease History: Diabetes: Mother (HTN) Review of Systems - Review of Systems Constitutional: reports: No Symptoms Eyes: reports: No Symptoms HENT: reports: No Symptoms Neck: reports: No Symptoms Cardiovascular: reports: No Symptoms Respiratory: reports: No Symptoms Gastrointestinal: reports: Abdominal Pain Genitourinary: reports: Dysuria, Frequency Breasts: reports: No Symptoms Reported Musculoskeletal: reports: No Symptoms Integumentary: reports: No Symptoms Neurological: reports: No Symptoms Endocrine: reports: Increased Thirst Hematology/Lymphatic: reports: No Symptoms Psychiatric: reports: No Symptoms Physical Examination Vital Signs: Vital Signs Temperature 98.5 F 05/19/18 13:09 Pulse Rate 91 H 05/19/18 13:09 Respiratory Rate 16 05/19/18 13:09 Blood Pressure 133/83 05/19/18 13:09 O2 Sat by Pulse Oximetry (%) 100 05/19/18 13:09 Constitutional: Yes: Well Nourished, No Distress, Calm Eyes: Yes: WNL, Conjunctiva Clear, EOM Intact, PERRL HENT: Yes: WNL, Atraumatic, Normocephalic Neck: Yes: WNL, Supple, Trachea Midline Cardiovascular: Yes: WNL, Regular Rate and Rhythm, S1, S2 Respiratory: Yes: WNL, Regular, CTA Bilaterally Gastrointestinal: Yes: Normal Bowel Sounds, Soft, Tenderness (suprapubic region) Breast(s): Yes: WNL Musculoskeletal: Yes: WNL Extremities: Yes: Amputation (right digit #2, #3) Edema: No Peripheral Pulses WNL: Yes Neurological: Yes: WNL, Alert, Oriented, Cran Nerves II-XII Intact ...Motor Strength: WNL Psychiatric: Yes: WNL, Alert, Oriented Labs: CBC, BMP 05/19/18 14:50 Laboratory Results - last 24 hr 05/19/18 05/19/18 05/19/18 14:16 14:40 14:50 WBC 6.2 RBC 4.27 Hgb 13.0 Hct 38.3 MCV 89.5 MCH 30.5 MCHC 34.1 RDW 15.4 Plt Count 196 D MPV 10.8 Absolute Neuts (auto) 4.5 Neutrophils % 73.5 D Lymphocytes % 21.1 D Monocytes % 4.9 Eosinophils % 0.2 D Basophils % 0.3 Nucleated RBC % 0 Puncture Site ABG pH ABG pCO2 at Pt Temp ABG pO2 at Pt Temp ABG HCO3 ABG O2 Sat (Measured) ABG O2 Content ABG Base Excess Jd Test VBG pH 7.40 POC VBG pCO2 48.2 POC VBG pO2 45.0 D Mixed VBG HCO3 29.2 H Oxygen Flow Rate Sodium Potassium Chloride Carbon Dioxide Anion Gap BUN Creatinine Creat Clearance w eGFR POC Glucometer Random Glucose Calcium Total Bilirubin AST ALT Alkaline Phosphatase Total Protein Albumin Urine Color Straw Urine Appearance Clear Urine pH 6.0 Ur Specific [place] 1.021 Urine Protein Negative Urine Glucose (UA) 3+ H Urine Ketones Trace H Urine Blood Negative Urine Nitrite Negative Urine Bilirubin Negative Urine Urobilinogen Negative Ur Leukocyte Esterase Negative Acetone, Qual 05/19/18 05/19/18 05/19/18 14:50 14:50 19:00 WBC RBC Hgb Hct MCV MCH MCHC RDW Plt Count MPV Absolute Neuts (auto) Neutrophils % Lymphocytes % Monocytes % Eosinophils % Basophils % Nucleated RBC % Puncture Site Left radial ABG pH 7.40 ABG pCO2 at Pt Temp 41.1 ABG pO2 at Pt Temp 97.7 ABG HCO3 25.1 ABG O2 Sat (Measured) 97.4 ABG O2 Content No Result Required. ABG Base Excess 0.8 Jd Test Positive VBG pH POC VBG pCO2 POC VBG pO2 Mixed VBG HCO3 Oxygen Flow Rate No Result Required. Sodium 138 Potassium 4.8 Chloride 102 Carbon Dioxide 29 Anion Gap 7 L BUN 22 H Creatinine 1.1 Creat Clearance w eGFR 50.01 POC Glucometer Random Glucose 489 H* Calcium 9.6 Total Bilirubin 0.3 AST 22 ALT 27 Alkaline Phosphatase 84 Total Protein 7.7 Albumin 3.4 Urine Color Urine Appearance Urine pH Ur Specific [place] Urine Protein Urine Glucose (UA) Urine Ketones Urine Blood Urine Nitrite Urine Bilirubin Urine Urobilinogen Ur Leukocyte Esterase Acetone, Qual Negative L 05/19/18 05/19/18 05/20/18 21:30 22:29 02:18 WBC RBC Hgb Hct MCV MCH MCHC RDW Plt Count MPV Absolute Neuts (auto) Neutrophils % Lymphocytes % Monocytes % Eosinophils % Basophils % Nucleated RBC % Puncture Site ABG pH ABG pCO2 at Pt Temp ABG pO2 at Pt Temp ABG HCO3 ABG O2 Sat (Measured) ABG O2 Content ABG Base Excess Jd Test VBG pH POC VBG pCO2 POC VBG pO2 Mixed VBG HCO3 Oxygen Flow Rate Sodium Cancelled 142 Potassium Cancelled 4.5 Chloride Cancelled 107 Carbon Dioxide Cancelled 27 Anion Gap Cancelled 8 BUN Cancelled 20 H Creatinine Cancelled 1.2 Creat Clearance w eGFR Cancelled 45.23 POC Glucometer 97.80087 Random Glucose Cancelled 498 H* Calcium Cancelled 8.5 Total Bilirubin AST ALT Alkaline Phosphatase Total Protein Albumin Urine Color Urine Appearance Urine pH Ur Specific [place] Urine Protein Urine Glucose (UA) Urine Ketones Urine Blood Urine Nitrite Urine Bilirubin Urine Urobilinogen Ur Leukocyte Esterase Acetone, Qual 05/20/18 05/20/18 04:56 06:34 WBC RBC Hgb Hct MCV MCH MCHC RDW Plt Count MPV Absolute Neuts (auto) Neutrophils % Lymphocytes % Monocytes % Eosinophils % Basophils % Nucleated RBC % Puncture Site ABG pH ABG pCO2 at Pt Temp ABG pO2 at Pt Temp ABG HCO3 ABG O2 Sat (Measured) ABG O2 Content ABG Base Excess Jd Test VBG pH POC VBG pCO2 POC VBG pO2 Mixed VBG HCO3 Oxygen Flow Rate Sodium Potassium Chloride Carbon Dioxide Anion Gap BUN Creatinine Creat Clearance w eGFR POC Glucometer 64.17776 208.96479 Random Glucose Calcium Total Bilirubin AST ALT Alkaline Phosphatase Total Protein Albumin Urine Color Urine Appearance Urine pH Ur Specific [place] Urine Protein Urine Glucose (UA) Urine Ketones Urine Blood Urine Nitrite Urine Bilirubin Urine Urobilinogen Ur Leukocyte Esterase Acetone, Qual Intake & Output 05/17/18 05/18/18 05/19/18 05/20/18 23:59 23:59 23:59 23:59 Weight 58.967 kg Current Medications Generic Name Dose Route Start Last Admin Trade Name Freq PRN Reason Stop Dose Admin Aspirin 81 mg 05/20/18 10:00 Asa - PO DAILY JULIANA Gabapentin 400 mg 05/20/18 07:30 Neurontin - PO TID JULIANA Heparin Sodium (Porcine) 5,000 unit 05/20/18 10:00 Heparin - SQ BID JULIANA Insulin Aspart 1 vial 05/20/18 07:30 Novolog Vial Sliding Scale - SQ ACHS [facility] Protocol Rosuvastatin Calcium 40 mg 05/20/18 22:00 Crestor - PO HS JULIANA Imaging - Results Chest X-ray: Report Reviewed, Image Reviewed Cat Scan: Image Reviewed Problem List - Problems (1) Hyperglycemia due to type 2 diabetes mellitus Assessment/Plan: not controlled Likely due to non-compliance NS bolus 2L, Novolog given in ED no improvement Serum glucose now 498 AG-8 Serum Ketones- neg Novolog SQ ordered FS Q2h, until FS < 200 Will start on NS@75ml/hr Appreciate Endocrinology consult 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, unsuccessful, will need day team to confirm in am ISS HgbA1C in am Monitor BMP Monitor renal function Code(s): E11.65 - TYPE 2 DIABETES MELLITUS WITH HYPERGLYCEMIA (2) Dysuria Assessment/Plan: Patient reports having dysuria [id number] UA- +3 glucose, trace ketones, neg lue esterase, neg nitrates, no WBCs Urine Culture-pending Will start on Ceftriaxone Monitor vitals Monitor CBC Code(s): R30.0 - DYSURIA (3) CKD (chronic kidney disease) Assessment/Plan: Likely secodnary to Uncontrolled DM Cr 1.1, at baseline Avoid nephrotoxic drugs BMP in am f/u with Nephrology outpatient upon d/c Code(s): N18.9 - CHRONIC KIDNEY DISEASE, UNSPECIFIED (4) Diabetic neuropathy Assessment/Plan: Continue Gabapentin Code(s): E11.40 - TYPE 2 DIABETES MELLITUS WITH DIABETIC NEUROPATHY, UNSP (5) HTN (hypertension) Assessment/Plan: controlled Monitor BP No current med listed Consider JOSSIE/ARB Code(s): I10 - ESSENTIAL (PRIMARY) HYPERTENSION (6) Hyperlipidemia Assessment/Plan: Continue Crestor Monitor LFTs Code(s): E78.5 - HYPERLIPIDEMIA, UNSPECIFIED (7) DVT prophylaxis Assessment/Plan: OOB SCDs Heparin SQ Code(s): IJI5109 - Assessment/Plan This is a 62 y/o woman with a PMHx of Uncontrolled DM, HTN, HLD, CKD. Admitted for Uncontrolled DM, UTI for further evaluation of their emergent condition. Plan: FEN NS@75ml Replete lytes prn Low Na, Diabetic Diet DVT ppx OOB SCDs Heparin SQ Dispo: Requires Inpatient Care Visit type - Emergency Visit Emergency Visit: Yes ED Registration Date: 05/19/18 Care time: The patient presented to the Emergency Department on the above date and was hospitalized for further evaluation of their emergent condition. - New Patient This patient is new to me today: Yes Date on this admission: 05/19/18 - Critical Care Critical Care patient: No
[2018-05-19 23:03] LABS: GLUCOSE,RANDOM 498 mg/dL (74-106)
[2018-05-19] MEDS ORDERED: SODIUM CHLORIDE 1,000 ML IV SCH (23:15)
[2018-05-20] MEDS ORDERED: GABAPENTIN 100 MG CAPSULE (FP) ONE (07:41)
[2018-05-20] MEDS: GABAPENTIN 400 MG CAPSULE (FP) PO SCH ×3 (07:42→21:41)
[2018-05-20 07:44] LABS: BASO % 0.4 % (0-2.0); EOS % 1.5 % (0-4.5); HEMATOCRIT 31.7 % (32.4-45.2); HEMOGLOBIN 10.9 GM/dL (10.7-15.3); MCH 31.1 pg (25.7-33.7); MCHC 34.3 g/dl (32.0-36.0); MEAN CELL VOLUME 90.9 fl (80-96); MEAN PLT VOLUME 10.6 fl (7.5-11.1); MONO % 9.7 % (3.8-10.2); NEUT % 59.4 % (42.8-82.8); PLATELET COUNT 167 K/MM3 (134-434); RBC 3.49 M/mm3 (3.60-5.2); RDW 15.3 % (11.6-15.6)
[2018-05-20] MEDS ORDERED: INSULIN (NOVOLOG) ASPART 100 UNITS/ML 10ML VIAL ONE ×2 (07:44→12:05)
[2018-05-20] MEDS: INSULIN SLIDING SCALE (NOVOLOG) 1 VIAL SQ SCH ×4 (07:45→21:40)
[2018-05-20 07:49] LABS: ANION GAP 5 MMOL/L (8-16); BLOOD UREA NITROGEN 17 mg/dL (7-18); CALCIUM 8.3 mg/dL (8.5-10.1); CHLORIDE 113 mmol/L (98-107); CO2 28 mmol/L (21-32); CREATININE 0.8 mg/dL (0.55-1.3); GLUCOSE,RANDOM 186 mg/dL (74-106); MAGNESIUM 2.1 mg/dL (1.8-2.4); PHOSPHOROUS 2.9 mg/dL (2.5-4.9); SODIUM 146 mmol/L (136-145)
[2018-05-20] MEDS ORDERED: CEFTRIAXONE 1 GM in DEXTROSE 5%-WATER - 50 ML IVPB ONE (08:30)
[2018-05-20] MEDS ORDERED: ASPIRIN 81 MG CHEWABLE TABLETS ONE (10:09)
[2018-05-20] MEDS: ASPIRIN 81 MG CHEWABLE TABLETS PO SCH (10:10)
[2018-05-20] MEDS: HEPARIN NA (PORCINE) 5,000 UNITS/ML 1ML VIAL SQ SCH ×2 (10:10→21:41)
[2018-05-20] MEDS ORDERED: HEPARIN NA (PORCINE) 5,000 UNITS/ML 1ML VIAL ONE (10:10)
[2018-05-20] MEDS ORDERED: CEFTRIAXONE 1 GM/50 ML BAG ONE (10:10)
[2018-05-20] MEDS ORDERED: BISACODYL 10 MG SUPP.RECT PR ONE (12:32)
--- NOTE | 2018-05-20 12:32 | PN ---
Progress Note, Physician - Current Medication List Current Medications: Active Medications Aspirin (Asa -) 81 mg PO DAILY [facility] Last Admin: 05/20/18 10:10 Dose: 81 mg Gabapentin (Neurontin -) 400 mg PO TID [facility] Last Admin: 05/20/18 07:42 Dose: 400 mg Heparin Sodium (Porcine) (Heparin -) 5,000 unit SQ BID [facility] Last Admin: 05/20/18 10:10 Dose: 5,000 unit Ceftriaxone Sodium 1 gm/ (Dextrose) 50 mls @ 100 mls/hr IVPB DAILY [facility]; Protocol Insulin Aspart (Novolog Vial Sliding Scale -) 1 vial SQ ACHS [facility]; Protocol Last Admin: 05/20/18 12:03 Dose: 6 unit Rosuvastatin Calcium (Crestor -) 40 mg PO HS [facility] - Objective Vital Signs: Vital Signs Temperature 98.2 F 05/20/18 12:02 Pulse Rate 79 05/20/18 12:02 Respiratory Rate 18 05/20/18 12:02 Blood Pressure 136/86 05/20/18 12:02 O2 Sat by Pulse Oximetry (%) 98 05/20/18 12:02 Labs: CBC, BMP 05/20/18 06:17 05/20/18 06:17 Problem List - Problems (1) Abdominal pain Assessment/Plan: Proabaly due to fecal retention Patient reports having dysuria [id number] UA- +3 glucose, trace ketones, neg lue esterase, neg nitrates, no WBCs Urine Culture-pending Will start on Ceftriaxone Monitor vitals Monitor CBC Code(s): R10.9 - UNSPECIFIED ABDOMINAL PAIN (2) HTN (hypertension) Assessment/Plan: controlled Monitor BP No current med listed Consider JOSSIE/ARB Code(s): I10 - ESSENTIAL (PRIMARY) HYPERTENSION (3) Hyperglycemia due to type 2 diabetes mellitus Assessment/Plan: - not controlled Likely due to non-compliance NS bolus 2L, Novolog given in ED no improvement Serum glucose now 498 AG-8 Serum Ketones- neg Novolog SQ ordered FS Q2h, until FS < 200 Will start on NS@75ml/hr Endocrinology consult 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
[2018-05-20] MEDS ORDERED: BISACODYL 10 MG SUPP.RECT RC ONE ×2 (13:51→13:59)
[2018-05-20] MEDS: POLYETHYLENE GLYCOL 3350 119 GM BTL PO SCH ×2 (14:01→21:41)
[2018-05-20 15:33] VITALS: BMI 25.4
[2018-05-20] MEDS ORDERED: ROSUVASTATIN CA 10 MG TABLET (FP) ONE (21:33)
[2018-05-20] MEDS: ROSUVASTATIN CA 20 MG TABLET (FP) PO SCH (22:40)
[2018-05-21] MEDS: GABAPENTIN 400 MG CAPSULE (FP) PO SCH ×3 (06:03→21:02)
[2018-05-21] MEDS: INSULIN SLIDING SCALE (NOVOLOG) 1 VIAL SQ SCH ×4 (06:03→21:03)
[2018-05-21] MEDS ORDERED: cefTRIAXone SODIUM 1 GM VIAL ONE (09:47)
[2018-05-21] MEDS ORDERED: DEXTROSE 5%-WATER - 50 ML IVPB ONE (09:48)
[2018-05-21] MEDS: HEPARIN NA (PORCINE) 5,000 UNITS/ML 1ML VIAL SQ SCH ×2 (09:51→21:02)
[2018-05-21] MEDS: POLYETHYLENE GLYCOL 3350 119 GM BTL PO SCH ×2 (09:52→21:05)
[2018-05-21] MEDS: CEFTRIAXONE 1 GM in DEXTROSE 5%-WATER - 50 ML IVPB SCH (09:52)
[2018-05-21] MEDS: ASPIRIN 81 MG CHEWABLE TABLETS PO SCH (09:52)
--- NOTE | 2018-05-21 10:21 | PN ---
Progress Note, Physician Chief Complaint: Abdominal pain Uncontrolled Diabetes mellitus Gastroperesis UTI History of Present Illness: NAD CT abdomen shows Fatty liver and fecal retention-likely the cause of abdominal pain elevated blood sugars 2/2 to dietary non compliance and acute infection UC pending, started on Ceftriaxone 1 gm daily Hx of MRSA in 03/13 - Current Medication List Current Medications: Active Medications Aspirin (Asa -) 81 mg PO DAILY [facility] Last Admin: 05/21/18 09:52 Dose: 81 mg Gabapentin (Neurontin -) 400 mg PO TID [facility] Last Admin: 05/21/18 06:03 Dose: 400 mg Heparin Sodium (Porcine) (Heparin -) 5,000 unit SQ BID [facility] Last Admin: 05/21/18 09:51 Dose: 5,000 unit Ceftriaxone Sodium 1 gm/ (Dextrose) 50 mls @ 100 mls/hr IVPB DAILY [facility]; Protocol Last Admin: 05/21/18 09:52 Dose: 100 mls/hr Insulin Aspart (Novolog Vial Sliding Scale -) 1 vial SQ ACHS [facility]; Protocol Last Admin: 05/21/18 06:03 Dose: 6 unit Polyethylene Glycol (Miralax (For Daily Use) -) 17 gm PO BID [facility] Last Admin: 05/21/18 09:52 Dose: 17 g Rosuvastatin Calcium (Crestor -) 40 mg PO HS [facility] Last Admin: 05/20/18 22:40 Dose: 40 mg Senna/Docusate Sodium (Pericolace -) 2 tablet PO HS [facility] Stop: 05/22/18 10:14 - Objective Vital Signs: Vital Signs Temperature 98.8 F 05/21/18 10:00 Pulse Rate 90 05/21/18 10:00 Respiratory Rate 20 05/21/18 10:00 Blood Pressure 127/69 05/21/18 10:00 O2 Sat by Pulse Oximetry (%) 96 05/20/18 21:00 Constitutional: Yes: Well Nourished, No Distress, Calm Cardiovascular: Yes: Regular Rate and Rhythm Respiratory: Yes: Regular Gastrointestinal: Yes: Normal Bowel Sounds, Soft Genitourinary: Yes: WNL Musculoskeletal: Yes: WNL Extremities: Yes: WNL Edema: No Peripheral Pulses WNL: Yes Neurological: Yes: Alert, Oriented Psychiatric: Yes: Alert, Oriented Labs: CBC, BMP 05/20/18 06:17 05/20/18 21:47 Problem List - Problems (1) UTI (urinary tract infection) Assessment/Plan: -UC: Microbiology 05/19/18 14:06 Urine - Urine Clean Catch Urine Culture - Preliminary Lactose Fermenting Neg Bacilli -Ceftriaxone 1 gm IVPB daily -Afebrile, no leukocytosis -asymptomatic Code(s): N39.0 - URINARY TRACT INFECTION, SITE NOT SPECIFIED (2) Gastroparesis Assessment/Plan: -2/2 uncontrolled blood sugars -Diabetic, low Na, low fat diet -Endocrinology consult -RD consult Code(s): K31.84 - GASTROPARESIS (3) Fecal retention Assessment/Plan: -Started on Miralax daily -Added Senna 2 tabs HS -GI consult -Last colonoscopy? Code(s): K59.00 - CONSTIPATION, UNSPECIFIED (4) Abdominal pain Assessment/Plan: -CT abd reviewed -pain resolved at this time -Pt states that she had colonoscopy couple of years ago, but daughter states that she doesn't think that pt has had any colonoscopy. Code(s): R10.9 - UNSPECIFIED ABDOMINAL PAIN (5) CKD (chronic kidney disease) Assessment/Plan: -Cr at baseline 0.9-1.1 -Monitor trend Code(s): N18.9 - CHRONIC KIDNEY DISEASE, UNSPECIFIED (6) Hyperlipidemia Assessment/Plan: -On Rosuvastatin 40 mg po HS -Low cholesterol diet -RD consult Code(s): E78.5 - HYPERLIPIDEMIA, UNSPECIFIED (7) T2DM (type 2 diabetes mellitus) Assessment/Plan: -Uncontrolled, spoke to daughter who states, pt is complete non compliant with diet and at times forgets to take her insulin. -A1c at 14.1 -Levemir 25 units daily at home -Increase Levemir to 30 U BID -Endocrinology consult -RD consult -Diabetic, Low Na, Low cholesterol diet -BGM ACHS -Novolog sliding scale Code(s): E11.9 - TYPE 2 DIABETES MELLITUS WITHOUT COMPLICATIONS Assessment/Plan see problem list Physical therapy DVT prophylaxis
[2018-05-21] MEDS ORDERED: INSULIN (NOVOLOG) ASPART 100 UNITS/ML 10ML VIAL ONE ×2 (10:54→18:19)
[2018-05-21] MEDS: INSULIN (LEVEMIR) 100 UNITS/ML UNITS SQ SCH ×2 (10:59→18:15)
[2018-05-21] MEDS ORDERED: ROSUVASTATIN CA 10 MG TABLET (FP) ONE (20:31)
[2018-05-21] MEDS: ROSUVASTATIN CA 20 MG TABLET (FP) PO SCH (21:02)
[2018-05-21] MEDS ORDERED: SENNOSIDES/DOCUSATE COMBO (SENNA PLUS) TABLET (UD) PO SCH (22:00)
--- NOTE | 2018-05-22 01:21 | CONSULT ---
Consult Consult Specialty:: endocrine Referred by:: dr.annabi crespo Reason for Consultation:: diabetes mellitus/uncontrolled - History of Present Illness Chief Complaint: high sugars History of Present Illness: 62 y/o woman with a past medical history of Uncontrolled DM, Neuropathy, HLD. Who presents to the ED with abdominal pain and elevated blood sugar. Patient reports having lower abdominal pain, dizziness, polyuria, and dysuria at home. She reports checking her blood glucose and the reading said "High". She admits not sticking with diet and insulin regimen as outlined for injections of insulin and frequent checking blood sugars. 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) Endocrine: Yes: Diabetes Mellitus - Past Surgical History Past Surgical History: Yes: Hysterectomy (and BSO-- for fibroids), Tubal Ligation - Alcohol/Substance Use Hx Alcohol Use: No History of Substance Use: reports: None - Smoking History Smoking history: Never smoked Have you smoked in the past 12 months: No - Social History ADL: Independent Occupation: retired History of Recent Travel: No Home Medications - Allergies Allergies/Adverse Reactions: Allergies Allergy/AdvReac Type Severity Reaction Status Date / Time No Known Allergies Allergy Verified 05/19/18 13:34 - Home Medications Home Medications: Ambulatory Orders Aspirin [ASA -] 81 mg PO DAILY tab.chew 01/02/18 Gabapentin [Neurontin -] 400 mg PO TID #30 capsule MDD 3 01/02/18 Insulin (Levemir) [Levemir Vial] 25 units SQ AM #100 units 01/02/18 Rosuvastatin [Crestor -] 40 mg PO HS #30 tablet MDD 1 01/02/18 Cephalexin Monohydrate [Keflex -] 500 mg PO Q8H #21 capsule 03/08/18 Sulfamethoxazole/Trimethoprim [Bactrim Ds -] 1 tab PO BID #14 tablet 03/08/18 Family Disease History - Family Disease History Family Disease History: Diabetes: Mother (HTN) Review of Systems - Review of Systems Constitutional: reports: Weakness Eyes: reports: Blurred Vision HENT: reports: No Symptoms Neck: reports: No Symptoms Cardiovascular: reports: Shortness of Breath Respiratory: reports: Exercise Intolerance, SOB on Exertion Gastrointestinal: reports: Bloating, Constipation, Nausea Genitourinary: reports: Urgency Breasts: reports: No Symptoms Reported Musculoskeletal: reports: Joint Swelling, Muscle Pain, Muscle Cramps Neurological: reports: Numbness, Weakness Endocrine: reports: Unexplained Weight Loss Physical Exam Vital Signs: Vital Signs Temperature 98.6 F 05/21/18 22:00 Pulse Rate 92 H 05/21/18 22:00 Respiratory Rate 20 05/21/18 22:00 Blood Pressure 148/85 05/21/18 22:00 O2 Sat by Pulse Oximetry (%) 96 05/20/18 21:00 Constitutional: Yes: Anxious Eyes: Yes: EOM Intact HENT: Yes: Normocephalic Neck: Yes: Trachea Midline Cardiovascular: Yes: Regular Rate and Rhythm Respiratory: Yes: CTA Bilaterally Gastrointestinal: Yes: Normal Bowel Sounds ...Rectal Exam: Yes: Deferred Renal/: Yes: WNL Musculoskeletal: Yes: WNL Edema: No Neurological: Yes: Alert, Oriented Labs: CBC, BMP 05/20/18 06:17 05/20/18 21:47 Problem List - Problems (1) Abdominal pain Code(s): R10.9 - UNSPECIFIED ABDOMINAL PAIN (2) Dysuria Code(s): R30.0 - DYSURIA (3) Fecal retention Code(s): K59.00 - CONSTIPATION, UNSPECIFIED (4) Gastroparesis Code(s): K31.84 - GASTROPARESIS (5) Hyperglycemia Code(s): R73.9 - HYPERGLYCEMIA, UNSPECIFIED (6) UTI (urinary tract infection) Code(s): N39.0 - URINARY TRACT INFECTION, SITE NOT SPECIFIED Assessment/Plan Current Active Problems Abdominal pain (Acute) Dysuria (Acute) Fecal retention (Acute) Gastroparesis (Acute) Hyperglycemia (Acute) UTI (urinary tract infection) (Acute) diabetes mellitus hyperglycemia Laboratory Results - last 24 hr 05/19/18 05/19/18 05/21/18 20:28 22:23 06:02 POC Glucometer > 400 > 400 277 05/21/18 05/21/18 05/21/18 10:58 16:14 20:42 POC Glucometer 359 270 90 Laboratory Tests 05/19/18 05/20/18 05/20/18 22:29 06:17 21:47 Sodium 142 Potassium 4.5 Chloride 107 Carbon Dioxide 27 Anion Gap 8 Creatinine 1.2 Creat Clearance w eGFR 45.23 POC Glucometer Random Glucose 498 H* 375 H* Hemoglobin A1c % 14.1 H 05/20/18 05/21/18 05/21/18 23:29 06:02 10:58 Sodium Potassium Chloride Carbon Dioxide Anion Gap Creatinine Creat Clearance w eGFR POC Glucometer 328 277 359 Random Glucose Hemoglobin A1c % plan: bgm qid novolog insulin sliding scale levemir 30 iu bid doses diet and nutrition counselling family support
[2018-05-22] MEDS: GABAPENTIN 400 MG CAPSULE (FP) PO SCH ×3 (05:40→21:05)
[2018-05-22] MEDS: INSULIN SLIDING SCALE (NOVOLOG) 1 VIAL SQ SCH ×4 (06:11→22:00)
[2018-05-22] MEDS: INSULIN (LEVEMIR) 100 UNITS/ML UNITS SQ SCH ×2 (06:41→17:03)
[2018-05-22] MEDS ORDERED: cefTRIAXone SODIUM 1 GM VIAL ONE (09:55)
[2018-05-22] MEDS ORDERED: DEXTROSE 5%-WATER - 50 ML IVPB ONE (09:56)
[2018-05-22] MEDS: CEFTRIAXONE 1 GM in DEXTROSE 5%-WATER - 50 ML IVPB SCH (10:38)
[2018-05-22] MEDS: ASPIRIN 81 MG CHEWABLE TABLETS PO SCH (10:38)
[2018-05-22] MEDS: HEPARIN NA (PORCINE) 5,000 UNITS/ML 1ML VIAL SQ SCH ×2 (10:38→21:06)
--- NOTE | 2018-05-22 10:41 | PN ---
Progress Note, Physician Chief Complaint: Abdominal pain Uncontrolled Diabetes mellitus Gastroperesis UTI History of Present Illness: NAD CT abdomen shows Fatty liver and fecal retention-likely the cause of abdominal pain elevated blood sugars 2/2 to dietary non compliance and acute infection UC pending, started on Ceftriaxone 1 gm daily Hx of MRSA in 03/13 - Current Medication List Current Medications: Active Medications Aspirin (Asa -) 81 mg PO DAILY [facility] Last Admin: 05/21/18 09:52 Dose: 81 mg Gabapentin (Neurontin -) 400 mg PO TID [facility] Last Admin: 05/22/18 05:40 Dose: 400 mg Heparin Sodium (Porcine) (Heparin -) 5,000 unit SQ BID [facility] Last Admin: 05/21/18 21:02 Dose: 5,000 unit Ceftriaxone Sodium 1 gm/ (Dextrose) 50 mls @ 100 mls/hr IVPB DAILY [facility]; Protocol Last Admin: 05/21/18 09:52 Dose: 100 mls/hr Insulin Aspart (Novolog Vial Sliding Scale -) 1 vial SQ ACHS [facility]; Protocol Last Admin: 05/22/18 06:11 Dose: Not Given Insulin Detemir (Levemir Vial) 30 units SQ BIDI [facility] Last Admin: 05/22/18 06:41 Dose: 30 units Polyethylene Glycol (Miralax (For Daily Use) -) 17 gm PO BID [facility] Last Admin: 05/21/18 21:05 Dose: 17 g Rosuvastatin Calcium (Crestor -) 40 mg PO HS [facility] Last Admin: 05/21/18 21:02 Dose: 40 mg - Objective Vital Signs: Vital Signs Temperature 98.4 F 05/22/18 06:00 Pulse Rate 87 05/22/18 06:00 Respiratory Rate 20 05/22/18 06:00 Blood Pressure 115/79 05/22/18 06:00 O2 Sat by Pulse Oximetry (%) 96 05/20/18 21:00 Constitutional: Yes: Well Nourished, No Distress, Calm Cardiovascular: Yes: Regular Rate and Rhythm Respiratory: Yes: Regular Gastrointestinal: Yes: Normal Bowel Sounds, Soft Musculoskeletal: Yes: WNL Extremities: Yes: WNL, Amputation (Right 2nd-4th toes) Edema: No Peripheral Pulses WNL: No Peripheral Pulses: Left Doralis Pedis: 2+, Right Dorsalis Pedis: 1+ Neurological: Yes: Alert, Oriented Psychiatric: Yes: Alert, Oriented Labs: CBC, BMP 05/20/18 06:17 05/20/18 21:47 Problem List - Problems (1) UTI (urinary tract infection) Assessment/Plan: -UC: Microbiology 05/19/18 14:06 Urine - Urine Clean Catch Urine Culture - Preliminary Lactose Fermenting Neg Bacilli -Ceftriaxone 1 gm IVPB daily -Afebrile, no leukocytosis -asymptomatic Code(s): N39.0 - URINARY TRACT INFECTION, SITE NOT SPECIFIED (2) Gastroparesis Assessment/Plan: -2/2 uncontrolled blood sugars -Diabetic, low Na, low fat diet -Endocrinology consult -RD consult Code(s): K31.84 - GASTROPARESIS (3) Fecal retention Assessment/Plan: -Started on Miralax daily -Added Senna 2 tabs HS -GI consult -Last colonoscopy? Code(s): K59.00 - CONSTIPATION, UNSPECIFIED (4) Abdominal pain Assessment/Plan: -CT abd reviewed -pain resolved at this time -Pt states that she had colonoscopy couple of years ago, but daughter states that she doesn't think that pt has had any colonoscopy. Code(s): R10.9 - UNSPECIFIED ABDOMINAL PAIN (5) CKD (chronic kidney disease) Assessment/Plan: -Cr at baseline 0.9-1.1 -Monitor trend Code(s): N18.9 - CHRONIC KIDNEY DISEASE, UNSPECIFIED (6) Hyperlipidemia Assessment/Plan: -On Rosuvastatin 40 mg po HS -Low cholesterol diet -RD consult Code(s): E78.5 - HYPERLIPIDEMIA, UNSPECIFIED (7) T2DM (type 2 diabetes mellitus) Assessment/Plan: -Uncontrolled, spoke to daughter who states, pt is complete non compliant with diet and at times forgets to take her insulin. -A1c at 14.1 -Increase Levemir to 30 U BID -Endocrinology consult -RD consult -Diabetic, Low Na, Low cholesterol diet -BGM ACHS -Novolog sliding scale Code(s): E11.9 - TYPE 2 DIABETES MELLITUS WITHOUT COMPLICATIONS Assessment/Plan see problem list Physical therapy DVT prophylaxis
[2018-05-22] MEDS ORDERED: INSULIN (NOVOLOG) ASPART 100 UNITS/ML 10ML VIAL ONE ×2 (11:23→15:44)
[2018-05-22] MEDS: POLYETHYLENE GLYCOL 3350 119 GM BTL PO SCH ×2 (11:31→21:06)
[2018-05-22] MEDS ORDERED: ERTAPENEM SODIUM 1 GM/50 ML PRE-DOCKED IVPB SCH (11:45)
[2018-05-22] MEDS ORDERED: ERTAPENEM SODIUM 1 GM in SODIUM CHLORIDE 100 ML IVPB SCH (12:45)
[2018-05-22] MEDS ORDERED: ERTAPENEM SODIUM 1 GM in SODIUM CHLORIDE 50 ML IVPB SCH (12:46)
[2018-05-22] MEDS: ERTAPENEM SODIUM 1 GM in SODIUM CHLORIDE 50 ML IVPB SCH (16:09)
--- NOTE | 2018-05-22 16:28 | CON.GI ---
Consult Consult Specialty:: Gastroenterology Referred by:: Dany Razo NP Reason for Consultation:: abdominal pain , constipation and gastroparesis - History of Present Illness Chief Complaint: Using [employer] quality nurse the patient denies abdominal pain , N/V and constipation History of Present Illness: 62F is admitted for poorly controlled diabetes. The history is obtained using [employer] quality nurse #[id number]. She denies N/V and abdominal pain. She had not moved her bowels for the past 2 days but had two BMs today. NO bleeding. She last had a colonoscopy remotely and cannot recall the results. She reports that her weight has fallen form 168 to 128 lbs. No FH of colon cancer. She denies liver disease. 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) Endocrine: Yes: Diabetes Mellitus - Past Surgical History Past Surgical History: Yes: Colonoscopy, , Hysterectomy, Tubal Ligation - Alcohol/Substance Use Hx Alcohol Use: No History of Substance Use: reports: None - Smoking History Smoking history: Never smoked Have you smoked in the past 12 months: No - Social History Usual Living Arrangement: Alone ADL: Independent Occupation: retired Place of : Other ([place]) History of Recent Travel: No Home Medications - Allergies Allergies/Adverse Reactions: Allergies Allergy/AdvReac Type Severity Reaction Status Date / Time No Known Allergies Allergy Verified 05/19/18 13:34 - Home Medications Home Medications: Ambulatory Orders Aspirin [ASA -] 81 mg PO DAILY tab.chew 01/02/18 Gabapentin [Neurontin -] 400 mg PO TID #30 capsule MDD 3 01/02/18 Insulin (Levemir) [Levemir Vial] 25 units SQ AM #100 units 01/02/18 Rosuvastatin [Crestor -] 40 mg PO HS #30 tablet MDD 1 01/02/18 Cephalexin Monohydrate [Keflex -] 500 mg PO Q8H #21 capsule 03/08/18 Sulfamethoxazole/Trimethoprim [Bactrim Ds -] 1 tab PO BID #14 tablet 03/08/18 Family Disease History - Family Disease History Family Disease History: Diabetes: Mother (HTN) Review of Systems - Review of Systems Constitutional: reports: Unintentional Wgt. Loss Gastrointestinal: reports: Constipation Physical Exam-GI Vital Signs: Vital Signs Temperature 98.4 F 05/22/18 14:00 Pulse Rate 88 05/22/18 14:00 Respiratory Rate 18 05/22/18 14:00 Blood Pressure 147/87 05/22/18 14:00 O2 Sat by Pulse Oximetry (%) 97 05/22/18 09:00 CBC,CMP WBC 4.0 K/mm3 (4.0-10.0) 05/20/18 06:17 RBC 3.49 M/mm3 (3.60-5.2) L 05/20/18 06:17 Hgb 10.9 GM/dL (10.7-15.3) 05/20/18 06:17 Hct 31.7 % (32.4-45.2) L D 05/20/18 06:17 MCV 90.9 fl (80-96) 05/20/18 06:17 MCH 31.1 pg (25.7-33.7) 05/20/18 06:17 MCHC 34.3 g/dl (32.0-36.0) 05/20/18 06:17 RDW 15.3 % (11.6-15.6) 05/20/18 06:17 Plt Count 167 K/MM3 (134-434) 05/20/18 06:17 MPV 10.6 fl (7.5-11.1) 05/20/18 06:17 Absolute Neuts (auto) 2.4 K/mm3 (1.5-8.0) 05/20/18 06:17 Neutrophils % 59.4 % (42.8-82.8) 05/20/18 06:17 Lymphocytes % 29.0 % (8-40) D 05/20/18 06:17 Monocytes % 9.7 % (3.8-10.2) D 05/20/18 06:17 Eosinophils % 1.5 % (0-4.5) D 05/20/18 06:17 Basophils % 0.4 % (0-2.0) 05/20/18 06:17 Nucleated RBC % 0 % (0-0) 05/20/18 06:17 Sodium 146 mmol/L (136-145) H 05/20/18 06:17 Potassium 4.0 mmol/L (3.5-5.1) 05/20/18 06:17 Chloride 113 mmol/L (98-107) H 05/20/18 06:17 Carbon Dioxide 28 mmol/L (21-32) 05/20/18 06:17 Anion Gap 5 MMOL/L (8-16) L 05/20/18 06:17 BUN 17 mg/dL (7-18) 05/20/18 06:17 Creatinine 0.8 mg/dL (0.55-1.3) 05/20/18 06:17 Creat Clearance w eGFR > 60 (>60) 05/20/18 06:17 POC Glucometer 235 UNITS (80-120) 05/22/18 11:30 Random Glucose 375 mg/dL (74-106) H* 05/20/18 21:47 Hemoglobin A1c % 14.1 % (4.2-6.3) H 05/20/18 06:17 Calcium 8.3 mg/dL (8.5-10.1) L 05/20/18 06:17 Phosphorus 2.9 mg/dL (2.5-4.9) 05/20/18 06:17 Magnesium 2.1 mg/dL (1.8-2.4) 05/20/18 06:17 Total Bilirubin 0.3 mg/dL (0.2-1) 05/19/18 14:50 AST 22 U/L (15-37) 05/19/18 14:50 ALT 27 U/L (13-61) 05/19/18 14:50 Alkaline Phosphatase 84 U/L (45-117) 05/19/18 14:50 Total Protein 7.7 g/dl (6.4-8.2) 05/19/18 14:50 Albumin 3.4 g/dl (3.4-5.0) 05/19/18 14:50 Current Medications Generic Name Dose Route Start Last Admin Trade Name Freq PRN Reason Stop Dose Admin Aspirin 81 mg 05/20/18 10:00 05/22/18 10:38 Asa - PO 81 mg DAILY JULIANA Administration Gabapentin 400 mg 05/20/18 07:30 05/22/18 15:02 Neurontin - PO 400 mg TID JULIANA Administration Heparin Sodium (Porcine) 5,000 unit 05/20/18 10:00 05/22/18 10:38 Heparin - SQ 5,000 unit BID JULIANA Administration Ertapenem 1 gm/ Sodium 50 mls @ 200 mls/hr 05/22/18 13:00 05/22/18 16:09 Chloride IVPB 200 mls/hr DAILY JULIANA Administration Insulin Aspart 1 vial 05/22/18 07:00 05/22/18 11:30 Novolog Vial Sliding Scale - SQ 6 units ACHS JULIANA Administration Protocol Insulin Detemir 30 units 05/21/18 10:15 05/22/18 06:41 Levemir Vial SQ 30 units BIDI JULIANA Administration Polyethylene Glycol 17 gm 05/20/18 12:45 05/22/18 11:31 Miralax (For Daily Use) - PO 17 g BID JULIANA Administration Rosuvastatin Calcium 40 mg 05/20/18 22:00 05/21/18 21:02 Crestor - PO 40 mg HS JULIANA Administration Constitutional: Yes: No Distress Eyes: Yes: Conjunctiva Clear HENT: Yes: Atraumatic Neck: Yes: Trachea Midline Cardiovascular: Yes: Regular Rate and Rhythm Respiratory: Yes: CTA Bilaterally Gastrointestinal Inspection: Yes: Scars (healed vertical suprapubic incision) ...Auscultate: Yes: Normoactive Bowel Sounds ...Palpate: Yes: Soft, Other (nontender) ...Rectal Exam: Yes: Guaiac Negative (brown g neg stool) Edema: No Neurological: Yes: Alert Labs: CBC, BMP 05/20/18 06:17 05/20/18 21:47 Laboratory Tests 10/25/14 11/01/15 05/04/17 19:44 08:30 11:40 Hgb 13.2 10.1 L D 12.2 06/26/17 05/19/18 05/20/18 06:00 14:50 06:17 Hgb 11.8 D 13.0 10.9 Imaging - Results Cat Scan: Report Reviewed (Raquel Dailey Name: ANASTASIA ORTIZ DEPARTMENT OF RADIOLOGY Phys: Shweta Pink RESIDENT : 1955 Age: 62 Sex: F [facility] Acct: [id number] Loc: [address] Exam Date: 05/19/18 Status: [place] [address] Unit Number: [id number] EXAM#: TYPE/EXAM : RESULT: [id number] CT/ABDOMEN PELVIS CT WITH CONTR HISTORY PROVIDED: Rule out colitis/diverticulitis. Sequential axial images were obtained from the domes of the diaphragms through the symphysis pubis following the administration of intravenous contrast material. The lung bases are clear. Platelike atelectasis is seen bilaterally. The liver is enlarged measuring 18.9 cm in craniocaudad dimension. It is hypodense in texture consistent with diffuse fatty infiltration. No mass lesions are identified within the liver. The spleen, pancreas, adrenal glands and kidneys demonstrate no significant abnormalities. There is a 2.7 cm right renal cyst. There is no evidence of intra-abdominal or retroperitoneal lymphadenopathy or fluid collections. There is no evidence of pneumoperitoneum, bowel obstruction or intra-abdominal abscess. There is no CT evidence of acute appendicitis, colitis or diverticulitis. Examination of the pelvis demonstrates no evidence of pelvic masses, fluid collections or lymphadenopathy. There is a moderate amount of retained fecal material throughout the colon. The patient is S/P hysterectomy. There is no evidence of acute bony pathology. IMPRESSION : 1. Mild hepatomegaly with diffuse fatty infiltration of the liver. 2. Fecal retention with no evidence of colitis, diverticulitis or acute pathology within the abdomen or pelvis. Please see above discussion. Reported By: Dru Voss MD 05/20/18 1001 Technologist: Cindy Perkins Transcribed Date/Time: 05/20/18 1001 Shorthand Teacher: Dru Voss Printed Date/Time: By: Signed by: Dru Voss Signed on: Apr-2018 10:02) Problem List - Problems (1) Anemia Assessment/Plan: Given her anemia I suggested that Anastasia undergo colon cancer screening via colonoscopy. I discussed colonoscopy via the [employer] quality nurse and informed the patient of the potential for such complications as perforation and hemorrhage. She is in a position to make an informed consent but wants to first discuss it with her daughter. I gave her my business card. Code(s): D64.9 - ANEMIA, UNSPECIFIED (2) Abdominal pain Assessment/Plan: The patient denies any pain since she moves her bowels suggesting that the cause was impacted feces. I will start Miralax. 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
[2018-05-22] MEDS ORDERED: ROSUVASTATIN CA 10 MG TABLET (FP) ONE (20:39)
[2018-05-22] MEDS: ROSUVASTATIN CA 20 MG TABLET (FP) PO SCH (21:06)
[2018-05-23] MEDS: GABAPENTIN 400 MG CAPSULE (FP) PO SCH ×3 (05:48→22:53)
[2018-05-23] MEDS: INSULIN SLIDING SCALE (NOVOLOG) 1 VIAL SQ SCH ×4 (06:26→22:58)
[2018-05-23] MEDS: INSULIN (LEVEMIR) 100 UNITS/ML UNITS SQ SCH ×2 (06:27→16:26)
--- NOTE | 2018-05-23 09:13 | PN ---
Progress Note, Physician - Current Medication List Current Medications: Active Medications Aspirin (Asa -) 81 mg PO DAILY [facility] Last Admin: 05/22/18 10:38 Dose: 81 mg Gabapentin (Neurontin -) 400 mg PO TID [facility] Last Admin: 05/23/18 05:48 Dose: 400 mg Heparin Sodium (Porcine) (Heparin -) 5,000 unit SQ BID [facility] Last Admin: 05/22/18 21:06 Dose: 5,000 unit Ertapenem 1 gm/ Sodium (Chloride) 50 mls @ 200 mls/hr IVPB DAILY [facility] Last Admin: 05/22/18 16:09 Dose: 200 mls/hr Insulin Aspart (Novolog Vial Sliding Scale -) 1 vial SQ ACHS [facility]; Protocol Last Admin: 05/23/18 06:26 Dose: Not Given Insulin Detemir (Levemir Vial) 30 units SQ BIDI [facility] Last Admin: 05/23/18 06:27 Dose: Not Given Polyethylene Glycol (Miralax (For Daily Use) -) 17 gm PO BID [facility] Last Admin: 05/22/18 21:06 Dose: 17 g Rosuvastatin Calcium (Crestor -) 40 mg PO HS [facility] Last Admin: 05/22/18 21:06 Dose: 40 mg - Objective Vital Signs: Vital Signs Temperature 98.7 F 05/23/18 05:40 Pulse Rate 87 05/23/18 05:40 Respiratory Rate 18 05/23/18 05:40 Blood Pressure 123/84 05/23/18 05:40 O2 Sat by Pulse Oximetry (%) 98 05/22/18 20:07 Cardiovascular: Yes: Regular Rate and Rhythm Respiratory: Yes: Regular, CTA Bilaterally Gastrointestinal: Yes: Normal Bowel Sounds, Soft. No: Tenderness Labs: CBC, BMP 05/20/18 06:17 05/20/18 21:47 Problem List - Problems (1) Abdominal pain Code(s): R10.9 - UNSPECIFIED ABDOMINAL PAIN (2) HTN (hypertension) Code(s): I10 - ESSENTIAL (PRIMARY) HYPERTENSION (3) Hyperglycemia due to type 2 diabetes mellitus Code(s): E11.65 - TYPE 2 DIABETES MELLITUS WITH HYPERGLYCEMIA (4) CKD (chronic kidney disease) Code(s): N18.9 - CHRONIC KIDNEY DISEASE, UNSPECIFIED Assessment/Plan - Problems (1) UTI (urinary tract infection) Assessment/Plan: -UC: Microbiology 05/19/18 14:06 Urine - Urine Clean Catch Urine Culture - Preliminary Lactose Fermenting Neg Bacilli -Ceftriaxone 1 gm IVPB daily -Afebrile, no leukocytosis -asymptomatic Code(s): N39.0 - URINARY TRACT INFECTION, SITE NOT SPECIFIED (2) Gastroparesis Assessment/Plan: -2/2 uncontrolled blood sugars -Diabetic, low Na, low fat diet -Endocrinology consult -RD consult Code(s): K31.84 - GASTROPARESIS (3) Fecal retention Assessment/Plan: -Started on Miralax daily -Added Senna 2 tabs HS -GI consult -For colonoscopy Code(s): K59.00 - CONSTIPATION, UNSPECIFIED (4) Abdominal pain Assessment/Plan: -CT abd reviewed -pain resolved at this time -Pt states that she had colonoscopy couple of years ago, but daughter states that she doesn't think that pt has had any colonoscopy. Code(s): R10.9 - UNSPECIFIED ABDOMINAL PAIN (5) CKD (chronic kidney disease) Assessment/Plan: -Cr at baseline 0.9-1.1 -Monitor trend Code(s): N18.9 - CHRONIC KIDNEY DISEASE, UNSPECIFIED (6) Hyperlipidemia Assessment/Plan: -On Rosuvastatin 40 mg po HS -Low cholesterol diet -RD consult Code(s): E78.5 - HYPERLIPIDEMIA, UNSPECIFIED (7) T2DM (type 2 diabetes mellitus) Assessment/Plan: -Uncontrolled, spoke to daughter who states, pt is complete non compliant with diet and at times forgets to take her insulin. -A1c at 14.1 -Increase Levemir to 30 U BID -Endocrinology consult -RD consult -Diabetic, Low Na, Low cholesterol diet -BGM ACHS -Novolog sliding scale Code(s): E11.9 - TYPE 2 DIABETES MELLITUS WITHOUT COMPLICATIONS
[2018-05-23] MEDS: ASPIRIN 81 MG CHEWABLE TABLETS PO SCH (10:19)
[2018-05-23] MEDS: HEPARIN NA (PORCINE) 5,000 UNITS/ML 1ML VIAL SQ SCH ×2 (10:19→22:53)
[2018-05-23] MEDS: ERTAPENEM SODIUM 1 GM in SODIUM CHLORIDE 50 ML IVPB SCH (10:19)
[2018-05-23] MEDS: POLYETHYLENE GLYCOL 3350 119 GM BTL PO SCH ×2 (10:20→22:54)
--- NOTE | 2018-05-23 10:21 | CON.ID ---
Consult Consult Specialty:: infectious disease Referred by:: dr dyson Reason for Consultation:: UTI - History of Present Illness Chief Complaint: 62 yo female admitted with high sugars, urinary frequency and dysuria History of Present Illness: Admitted from ER on 05/19, c/o high sugars, urinary frequency and dysuria no fevers, no chills +abdominal pain- +constipation known poorly controlled DM ct scan abd/pelvis fecal retention now 3 bms, abdominal pain resolved dysuria is improved originally started on ceftriaxone, switched to ertapenem yesterday for ecoli esbl in urine - History Source History Provided By: Patient Limitations to Obtaining History: Language Barrier (spoke via interpretor) - 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 Cardio/Vascular: Yes: HTN, Hyperlipdemia Renal/: Yes: Renal Inusuff ...: No Psych: Yes: Depression Musculoskeletal: Yes: 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) Endocrine: Yes: Diabetes Mellitus - Past Surgical History Past Surgical History: Yes: , Hysterectomy, Tubal Ligation - Alcohol/Substance Use Hx Alcohol Use: No History of Substance Use: reports: None - Smoking History Smoking history: Never smoked Have you smoked in the past 12 months: No - Social History Usual Living Arrangement: Alone ADL: Independent Occupation: retired History of Recent Travel: No Home Medications - Allergies Allergies/Adverse Reactions: Allergies Allergy/AdvReac Type Severity Reaction Status Date / Time No Known Allergies Allergy Verified 05/19/18 13:34 - Home Medications Home Medications: Ambulatory Orders Aspirin [ASA -] 81 mg PO DAILY tab.chew 01/02/18 Gabapentin [Neurontin -] 400 mg PO TID #30 capsule MDD 3 01/02/18 Insulin (Levemir) [Levemir Vial] 25 units SQ AM #100 units 01/02/18 Rosuvastatin [Crestor -] 40 mg PO HS #30 tablet MDD 1 01/02/18 Family Disease History - Family Disease History Family Disease History: Diabetes: Mother (HTN) Review of Systems - Review of Systems Constitutional: reports: No Symptoms. denies: Chills, Fever Eyes: reports: No Symptoms HENT: reports: No Symptoms Neck: reports: No Symptoms Cardiovascular: reports: No Symptoms. denies: Chest Pain Respiratory: reports: No Symptoms. denies: Cough Gastrointestinal: reports: No Symptoms Genitourinary: reports: No Symptoms Physical Exam Vital Signs: Vital Signs Temperature 98.7 F 05/23/18 05:40 Pulse Rate 87 05/23/18 05:40 Respiratory Rate 18 05/23/18 05:40 Blood Pressure 123/84 05/23/18 05:40 O2 Sat by Pulse Oximetry (%) 98 05/22/18 20:07 Constitutional: Yes: Well Nourished, No Distress Eyes: Yes: Conjunctiva Clear HENT: Yes: Atraumatic, Normocephalic Neck: Yes: Supple Cardiovascular: Yes: Regular Rate and Rhythm Respiratory: Yes: Regular, CTA Bilaterally Gastrointestinal: Yes: Normal Bowel Sounds, Soft. No: Tenderness, Rebound Renal/: Yes: Bladder Distention. 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
[2018-05-23] MEDS ORDERED: INSULIN (NOVOLOG) ASPART 100 UNITS/ML 10ML VIAL ONE (11:22)
--- NOTE | 2018-05-23 12:33 | PN ---
GI Progress Note Subjective: GI NOte: Denies pain, Eating well. I discussed EGD and colonoscopy in detail with Anastasia and both of her daughters yesterday and will prep for EGD and colonoscopy on 05/25. o - Objective Vital Signs: Vital Signs Temperature 98.7 F 05/23/18 05:40 Pulse Rate 87 05/23/18 05:40 Respiratory Rate 18 05/23/18 05:40 Blood Pressure 123/84 05/23/18 05:40 O2 Sat by Pulse Oximetry (%) 98 05/22/18 20:07 Constitutional: Calm ...Auscultate: Yes: Normoactive Bowel Sounds ...Palpate: Yes: Soft, Other (nontender) Labs: CBC, BMP 05/20/18 06:17 05/20/18 21:47 Assessment/Plan Will prep for EGD and colonoscopy on 05/25 Problem List - Problems (1) Anemia Code(s): D64.9 - ANEMIA, UNSPECIFIED (2) Abdominal pain Code(s): R10.9 - UNSPECIFIED ABDOMINAL PAIN (3) Fecal retention Code(s): K59.00 - CONSTIPATION, UNSPECIFIED (4) Gastroparesis Code(s): K31.84 - GASTROPARESIS (5) CKD (chronic kidney disease) Code(s): N18.9 - CHRONIC KIDNEY DISEASE, UNSPECIFIED (6) Diabetes mellitus with hyperosmolarity, with long-term current use of insulin Code(s): E11.00 - TYPE 2 DIAB W HYPROSM W/O NONKET HYPRGLY-HYPROS COMA ([facility]); Z79.4 - SENIOR CARE (CURRENT) USE OF INSULIN (7) HTN (hypertension) Code(s): I10 - ESSENTIAL (PRIMARY) HYPERTENSION (8) History of CVA (cerebrovascular accident) Code(s): Z86.73 - PRSNL HX OF TIA (TIA), AND CEREB INFRC W/O RESID DEFICITS
[2018-05-23] MEDS ORDERED: PT OWN MED DRAWER 7, Y5N ONE (16:11)
--- NOTE | 2018-05-23 17:12 | PN ---
Progress Note (short form) - Note Progress Note: GI NOte: I was informed by the nurse that Anastasia has met criteria for discharge. She has been free of bleeding and pain so I have no objections to discharge. The patient has my business card and I had discussed this possibility with his daughters yesterday so that they can arrange to do the EGD and colonoscopy as an outpatient. Problem List - Problems (1) Anemia Code(s): D64.9 - ANEMIA, UNSPECIFIED (2) Abdominal pain Code(s): R10.9 - UNSPECIFIED ABDOMINAL PAIN (3) Fecal retention Code(s): K59.00 - CONSTIPATION, UNSPECIFIED (4) Gastroparesis Code(s): K31.84 - GASTROPARESIS (5) CKD (chronic kidney disease) Code(s): N18.9 - CHRONIC KIDNEY DISEASE, UNSPECIFIED (6) Diabetes mellitus with hyperosmolarity, with long-term current use of insulin Code(s): E11.00 - TYPE 2 DIAB W HYPROSM W/O NONKET HYPRGLY-HYPROS COMA ([facility]); Z79.4 - SENIOR CARE (CURRENT) USE OF INSULIN (7) HTN (hypertension) Code(s): I10 - ESSENTIAL (PRIMARY) HYPERTENSION (8) History of CVA (cerebrovascular accident) Code(s): Z86.73 - PRSNL HX OF TIA (TIA), AND CEREB INFRC W/O RESID DEFICITS
[2018-05-23 19:42] LABS: HEMATOCRIT 33.8 % (32.4-45.2); HEMOGLOBIN 11.7 GM/dL (10.7-15.3); LYMPH % 30.8 % (8-40); MCH 31.3 pg (25.7-33.7); MCHC 34.6 g/dl (32.0-36.0); MEAN CELL VOLUME 90.6 fl (80-96); MEAN PLT VOLUME 10.8 fl (7.5-11.1); MONO % 9.1 % (3.8-10.2); NEUT % 57.1 % (42.8-82.8); RBC 3.73 M/mm3 (3.60-5.2); RDW 15.7 % (11.6-15.6); WHITE BLOOD COUNT 4.2 K/mm3 (4.0-10.0)
--- NOTE | 2018-05-23 19:54 | DS ---
Physical Examination Vital Signs: Vital Signs Temperature 98.1 F 05/23/18 18:00 Pulse Rate 99 H 05/23/18 18:00 Respiratory Rate 20 05/23/18 18:00 Blood Pressure 133/84 05/23/18 18:00 O2 Sat by Pulse Oximetry (%) 98 05/23/18 09:00 Labs: CBC, BMP 05/23/18 19:05 05/20/18 21:47 Discharge Summary Reason For Visit: HYPERGLYCEMIA Current Active Problems Abdominal pain (Acute) Anemia (Acute) Cystitis (Acute) Dysuria (Acute) Fecal retention (Acute) Gastroparesis (Acute) Hyperglycemia (Acute) Poorly controlled diabetes mellitus (Acute) UTI (urinary tract infection) (Acute) - Instructions Diet, Activity, Other Instructions: Discharge Instructions: - You were seen in the ED for high blood sugar and abdominal pain. - You had blood tests, a CT scan, and a urine test. There was no sign of infection that could be causing your abdominal pain or high blood sugar. - Please continue to use your medications at home as prescribed. Check your blood sugars regularly. 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 - Seek immediate medical care if you have worsening of your abdominal pain, cannot control your blood sugar, or have a medical emergency such as chest pain or shortness of breath. Instrucciones de descarga: - Usted fue visto en el servicio de urgencias por niveles altos de azcar en lito y dolor abdominal - Le hicieron anlisis de lito, jyoti tomografa computarizada y un anlisis de orina. No haba signos de infeccin que pudieran estar causando dolor abdominal o un alto nivel de azcar en la lito. - Por favor contine usando rain medicamentos en casa segn lo prescrito. Revise rian niveles de azcar en la lito con regularidad. - Llame a blair mdico de cabecera y blair endocrinlogo el para hacer citas de seguimiento. - Busque atencin mdica inmediata si empeora blair dolor abdominal, no puede controlar el azcar en la lito o tiene jyoti emergencia mdica mauricio dolor en el pecho o dificultad para respirar. Referrals: Darion Morales [Primary Care Provider] - - Home Medications Comprehensive Discharge Medication List: Ambulatory Orders Aspirin [ASA -] 81 mg PO DAILY tab.chew 01/02/18 Gabapentin [Neurontin -] 400 mg PO TID #30 capsule MDD 3 01/02/18 Rosuvastatin [Crestor -] 40 mg PO HS #30 tablet MDD 1 01/02/18 Insulin (Levemir) [Levemir Vial] 30 units SQ BIDI units 05/23/18 Nitrofurantoin Monohyd/M-Cryst [Macrobid -] 100 mg PO BID #14 capsule 05/23/18 Polyethylene Glycol 3350 [Miralax 119 gm Btl -] 17 gm PO BID bottle 05/23/18
[2018-05-23 20:43] LABS: PLATELET COUNT 173 K/MM3 (134-434); PLATELET ESTIMATE SLT DECREASE
[2018-05-23] MEDS: ROSUVASTATIN CA 20 MG TABLET (FP) PO SCH (22:53)
[2018-05-24] MEDS: GABAPENTIN 400 MG CAPSULE (FP) PO SCH ×2 (06:20→14:15)
[2018-05-24] MEDS: INSULIN SLIDING SCALE (NOVOLOG) 1 VIAL SQ SCH ×3 (06:33→17:33)
[2018-05-24] MEDS: INSULIN (LEVEMIR) 100 UNITS/ML UNITS SQ SCH (06:33)
[2018-05-24] MEDS ORDERED: PEG3350/SOD SULF,BICARB,CL/KCL 4,000 ML SOLN.RECON PO ONE (08:00)
[2018-05-24] MEDS ORDERED: PT OWN MED DRAWER 7, Y5N ONE (11:06)
[2018-05-24] MEDS: ASPIRIN 81 MG CHEWABLE TABLETS PO SCH (11:32)
[2018-05-24] MEDS: HEPARIN NA (PORCINE) 5,000 UNITS/ML 1ML VIAL SQ SCH (11:32)
[2018-05-24] MEDS: ERTAPENEM SODIUM 1 GM in SODIUM CHLORIDE 50 ML IVPB SCH (11:39)
[2018-05-24] MEDS: POLYETHYLENE GLYCOL 3350 119 GM BTL PO SCH (11:40)
[2018-05-24 13:45] VITALS: BP 145/82; PULSE 85; TEMP 98
--- NOTE | 2018-05-24 14:04 | PN ---
Progress Note, Physician Chief Complaint: patient seen and examined going home today - Current Medication List Current Medications: Active Medications Aspirin (Asa -) 81 mg PO DAILY [facility] Last Admin: 05/24/18 11:32 Dose: 81 mg Bisacodyl (Dulcolax -) 20 mg PO ONCE ONE Stop: 05/24/18 19:01 Gabapentin (Neurontin -) 400 mg PO TID [facility] Last Admin: 05/24/18 06:20 Dose: 400 mg Heparin Sodium (Porcine) (Heparin -) 5,000 unit SQ BID [facility] Stop: 05/24/18 15:00 Last Admin: 05/24/18 11:32 Dose: 5,000 unit Ertapenem 1 gm/ Sodium (Chloride) 50 mls @ 200 mls/hr IVPB DAILY [facility] Last Admin: 05/24/18 11:39 Dose: 200 mls/hr Insulin Aspart (Novolog Vial Sliding Scale -) 1 vial SQ ACHS [facility]; Protocol Last Admin: 05/24/18 12:37 Dose: 5 units Insulin Detemir (Levemir Vial) 30 units SQ BIDI [facility] Last Admin: 05/24/18 06:33 Dose: 30 units Polyethylene Glycol (Miralax (For Daily Use) -) 17 gm PO BID [facility] Last Admin: 05/24/18 11:40 Dose: Not Given Rosuvastatin Calcium (Crestor -) 40 mg PO HS [facility] Last Admin: 05/23/18 22:53 Dose: 40 mg - Objective Vital Signs: Vital Signs Temperature 98 F 05/24/18 13:45 Pulse Rate 85 05/24/18 13:45 Respiratory Rate 17 05/24/18 13:45 Blood Pressure 145/82 05/24/18 13:45 O2 Sat by Pulse Oximetry (%) 99 05/24/18 09:00 Constitutional: Yes: Calm Cardiovascular: Yes: Regular Rate and Rhythm, S1, S2 Respiratory: Yes: CTA Bilaterally Gastrointestinal: Yes: Normal Bowel Sounds, Soft Edema: No Neurological: Yes: Alert, Oriented Labs: CBC, BMP 05/23/18 19:05 05/20/18 21:47 Problem List - Problems (1) Dysuria Assessment/Plan: on ertrapenem for Ecoli ESBL in urine contact isolation will change to oral abx got three days of iv abx Code(s): R30.0 - DYSURIA (2) Fecal retention Assessment/Plan: laxatives and get colonoscopy as outpatient Code(s): K59.00 - CONSTIPATION, UNSPECIFIED (3) Abdominal pain Assessment/Plan: to get colonscopy as outpatient Code(s): R10.9 - UNSPECIFIED ABDOMINAL PAIN (4) Poorly controlled diabetes mellitus Assessment/Plan: uncontrolled DM inc levemir dose Code(s): E11.65 - TYPE 2 DIABETES MELLITUS WITH HYPERGLYCEMIA
[2018-05-24] MEDS ORDERED: BISACODYL 5 MG TABLET.DR (FP) PO ONE (19:00)
[2018-05-24] MEDS ORDERED: INSULIN (LEVEMIR) 100 UNITS/ML UNITS SQ SCH (22:00)
--- NOTE | 2018-08-10 15:04 | EKG ---
Test Reason : Blood Pressure : / mmHG Vent. Rate : 089 BPM Atrial Rate : 089 BPM P-R Int : 154 ms QRS Dur : 078 ms QT Int : 356 ms P-R-T Axes : 065 020 051 degrees QTc Int : 433 ms NORMAL SINUS RHYTHM POSSIBLE ANTERIOR INFARCT (CITED ON OR BEFORE 31-DEC-2017) ABNORMAL ECG Confirmed by YUSEF MCCARTHY MD ([id number]) on 08/10/2018 3:03:41 PM Referred By: Confirmed By:YUSEF MCCARTHY MD
== END 2018-05-24 17:45 | disposition home or self-care (01) | DRG 420 ==
LOC: JER 13:09 → JERBED 22:47 → J6S 05-20 14:48 → J5S 05-23 20:50
PROVIDERS: ADMIT Internal Medicine; ATTEND Family Medicine
DX: E11.00 Type 2 diabetes mellitus with hyperosmolarity without nonketotic hyperglycemic-hyperosmolar coma (NKHHC) (principal); E11.65 Type 2 diabetes mellitus with hyperglycemia; E11.40 Type 2 diabetes mellitus with diabetic neuropathy, unspecified; F32.9 Major depressive disorder, single episode, unspecified; R30.0 Dysuria; I12.9 Hypertensive chronic kidney disease with stage 1 through stage 4 chronic kidney disease, or unspecified chronic kidney disease; E11.22 Type 2 diabetes mellitus with diabetic chronic kidney disease; N18.9 Chronic kidney disease, unspecified; K76.0 Fatty (change of) liver, not elsewhere classified; K59.00 Constipation, unspecified; N39.0 Urinary tract infection, site not specified; E11.43 Type 2 diabetes mellitus with diabetic autonomic (poly)neuropathy; K31.84 Gastroparesis; B96.20 Unspecified Escherichia coli [E. coli] as the cause of diseases classified elsewhere; Z89.429 Acquired absence of other toe(s), unspecified side; Z86.73 Personal history of transient ischemic attack (TIA), and cerebral infarction without residual deficits; Z91.14 Patient's other noncompliance with medication regimen
CPT/HCPCS: 36415; 36600; 71045-TC-FY; 74177-TC; 80048; 80053; 81003; 82009; 82010; 82803; 82947; 82962; 83036; 83735; 84100; 85025; 87086; 87186; 93005; 93010; 97116-GP; 97161-GP; 99284-25; J1644; J7030

== ENCOUNTER 2018-06-16 21:57 | Inpatient (IN) | payer OTHER ==
[2018-06-16] MEDS ORDERED: SODIUM CHLORIDE 0.9% 500 ML INFUS.BAG IV ONE (23:11)
[2018-06-16 23:34] LABS: BASO % 0.9 % (0-2.0); EOS % 0.8 % (0-4.5); HEMATOCRIT 41.3 % (32.4-45.2); HEMOGLOBIN 14.2 GM/dL (10.7-15.3); MCH 31.2 pg (25.7-33.7); MCHC 34.3 g/dl (32.0-36.0); MEAN CELL VOLUME 91.1 fl (80-96); MEAN PLT VOLUME 11.6 fl (7.5-11.1); MONO % 7.7 % (3.8-10.2); NEUT % 65.6 % (42.8-82.8); PLATELET COUNT 173 K/MM3 (134-434); RBC 4.53 M/mm3 (3.60-5.2); RDW 14.9 % (11.6-15.6); WHITE BLOOD COUNT 5.5 K/mm3 (4.0-10.0)
[2018-06-16 23:42] LABS: URINE APPEARANCE CLEAR; URINE BILIRUBIN NEGATIVE (<2.0 mg/dL); URINE COLOR STRAW; URINE GLUCOSE (UA) 3+ (NEGATIVE); URINE KETONE 1+ (NEGATIVE); URINE LEUK ESTERASE NEGATIVE (NEGATIVE); URINE NITRITE NEGATIVE (NEGATIVE); URINE PROTEIN NEGATIVE (NEGATIVE); URINE UROBILINOGEN NEGATIVE mg/dL (0.2-1.0)
--- NOTE | 2018-06-16 23:44 | PDOC ---
Attending Attestation - HPI HPI: 06/16/18 23:49 The patient is a 62 year old female, with a significant past medical history of HTN, CVA, depression, and diabetes (hyperglycemia and DKA), who presents to the emergency department with, 3 days of dizziness. She notes similar episodes in the past with associated shortness of breath and abdominal discomfort when sitting or lying down. She endorses that urinates approximately 2 gallons of urine per night with associated dysuria and urinary frequency. She notes she was recently treated for a UTI a week ago (compliant with medication). Patient notes she has lost approximately 40lbs over the past month due to decreased PO intake. Last BM was 3 days ago. She denies recent fevers, chills, headache or dizziness. She denies recent nausea, vomit, or diarrhea. She denies recent hematuria. She denies recent chest pain. Allergies: NKDA Past surgical history: Uterine fibroid removal. Social history: Nonsmoker. Denies EtOH use and recreational drug use. Primary Care Physician: Dr. Morales - Physicial Exam PE: 06/16/18 23:49 GENERAL: Awake, alert, and fully oriented, in no acute distress HEAD: No signs of trauma EYES: PERRLA, EOMI, sclera anicteric, conjunctiva clear ENT: Auricles normal inspection, hearing grossly normal, nares patent, oropharynx clear without exudates. Moist mucosa NECK: Normal ROM, supple, no lymphadenopathy, JVD, or masses LUNGS: Breath sounds equal, clear to auscultation bilaterally. No wheezes, and no crackles HEART: Regular rate and rhythm, normal S1 and S2, no murmurs, rubs or gallops ABDOMEN: Soft, nontender, normoactive bowel sounds. No guarding, no rebound. No masses EXTREMITIES: Normal range of motion, no edema. No clubbing or cyanosis. No cords, erythema, or tenderness NEUROLOGICAL: Cranial nerves II through XII grossly intact. Normal speech, normal gait SKIN: Warm, Dry, normal turgor, no rashes or lesions noted. <Natalia Cui - Last Filed: 06/16/18 23:49> - Resident Resident Name: Ruy Shore - ED Attending Attestation I have performed the following: I have examined & evaluated the patient, The case was reviewed & discussed with the resident, I agree w/resident's findings & plan - Medical Decision Making 06/16/18 23:44 CXR is clear 06/17/18 04:01 Pt's blood sugas is 400+ and she will be started on an insulin drip and she will be admitted to the ICU, likely. Regardless she will be admitted <Almaz Davis - Last Filed: 06/17/18 04:03> Heart Score/ECG Review - ECG Intrepretation Rhythm: Regular Rhythm - [place]: Normal - P and MI Delta Wave(s) Present: No WPW: No - QRS Poor R Wave Progression: No Q Wave Present: No - ST and T Early Repolarization: No Non Specific ST-T Wave changes: No Flattened T Waves: No Prolonged Q-T Interval: No - ECG Impressions Normal ECG: Yes Non-specific ST Elevation: No Ischemic Changes: No Bradycardia: No <Almaz Davis - Last Filed: 06/17/18 04:03> Attestations - Attestations 06/16/18 23:50 Documentation prepared by Natalia Cui, acting as director medical writing for Almaz Davis MD. <Natalia Cui - Last Filed: 06/16/18 23:49>
[2018-06-16] MEDS ORDERED: INSULIN REGULAR HUMAN 100 UNITS/ML *VIAL SQ ONE (23:49)
[2018-06-17] MEDS ORDERED: INSULIN REGULAR HUMAN 100 UNITS/ML *VIAL ONE ×2 (00:04→01:23)
[2018-06-17 00:07] LABS: ALBUMIN 3.6 g/dl (3.4-5.0); ALK PHOS 83 U/L (45-117); ANION GAP 14 MMOL/L (8-16); BILIRUBIN,TOTAL 0.4 mg/dL (0.2-1); BLOOD UREA NITROGEN 20 mg/dL (7-18); CHLORIDE 101 mmol/L (98-107); CO2 25 mmol/L (21-32); CREATININE 1.2 mg/dL (0.55-1.3); POTASSIUM 5.1 mmol/L (3.5-5.1); SGOT/AST 20 U/L (15-37); SGPT/ALT 24 U/L (13-61); SODIUM 140 mmol/L (136-145)
[2018-06-17 00:09] LABS: GLUCOSE,RANDOM 494 mg/dL (74-106)
--- NOTE | 2018-06-17 00:25 | PDOC ---
History of Present Illness - General Chief Complaint: Lightheaded Stated Complaint: DIZZINESS, URINARY PROBLEM Time Seen by Provider: 06/16/18 22:32 History Source: Patient, Old Records Exam Limitations: No Limitations - History of Present Illness Initial Comments: HPI: 62 y/o female presenting to [facility] ER complaining of three days of dizziness and increased urination. Pt states she is peeing 2 gallons every night with a burning sensation and potassium smell. Denies hematuria. States she has been drinking more frequently as well. Dizziness has resulted in disequilibrium. Pt is a known diabetic managed with Levemir and Novolog sliding scale. States her home BGLs have ranged in low to mid 100s over the past several days. Denies missing medication doses. A1C was 14.1 on 05/20/2018 per [facility]. Pt was admitted to this facility on 05/19/2018 for similar presentation. Urine culture grew e. Coli Pt is Sudanese speaking only. Sudanese speaking member of staff provided interpretation. PCP: Dr. Morales Medical Hx: - Diabetes - Neuropathy - HCL Past History - Past Medical History Allergies/Adverse Reactions: Allergies Allergy/AdvReac Type Severity Reaction Status Date / Time No Known Allergies Allergy Verified 06/16/18 22:08 Home Medications: Ambulatory Orders Aspirin [ASA -] 81 mg PO DAILY tab.chew 01/02/18 Gabapentin [Neurontin -] 400 mg PO TID #30 capsule MDD 3 01/02/18 Rosuvastatin [Crestor -] 40 mg PO HS #30 tablet MDD 1 01/02/18 Polyethylene Glycol 3350 [Miralax 119 gm Btl -] 17 gm PO BID bottle 05/23/18 Insulin (Levemir) [Levemir Vial] 35 units SQ BIDI #100 units MDD 2 05/24/18 Insulin (Novolog) [Novolog] 0 units SQ AC 06/16/18 Asthma: No CVA: Yes COPD: No Diabetes: Yes (neuropathy) HTN: Yes Psychiatric Problems: Yes (Depression) Thyroid Disease: No - Surgical History Neurologic Surgery: No - Immunization History Immunization Up to Date: No - Suicide/Smoking/Psychosocial Hx Smoking History: Never smoked Have you smoked in the past 12 months: No Information on smoking cessation initiated: No Hx Alcohol Use: No Drug/Substance Use Hx: No Substance Use Type: None Hx Substance Use Treatment: No Review of Systems - Review of Systems Able to Perform ROS?: Yes Comments:: In addition to that documented in the HPI above, the additional ROS was obtained : Constitutional: Denies fevers or chills Eyes: Denies vision changes ENMT: Denies sore throat CV: Denies chest pain Resp: Endorses chronic and unchanged SOB GI: Denies vomiting or diarrhea : Endorses painful urination MSK: Denies recent trauma Skin: Denies new rashes Neuro: Denies new numbness or tingling or weakness Endocrine: Endorses polyuria Heme: Denies bleeding or bruising *Physical Exam - Vital Signs Last Vital Signs Temp Pulse Resp BP Pulse Ox 98.1 F 105 H 16 104/65 100 06/16/18 22:06 06/16/18 22:06 06/16/18 22:06 06/16/18 22:06 06/16/18 23:28 - Physical Exam Comments: Constitutional: Well-developed, well-nourished female in no acute distress or obvious discomfort. Found semi-fowlers on hospital bed. Alert and oriented x4. Answered all questions appropriately and completely. Speech was non-labored, non -pressured. Head: Normocephalic. No obvious external signs of trauma. Eyes: Pupils 4mm and PERRL bilaterally. Sclerae white. Conjunctiva moist and not injected. EARS: Hearing grossly intact. NOSE: No nasal discharge. THROAT: Oral cavity and pharynx normal. No inflammation, swelling, exudate, or lesions. Neck: Supple, trachea is midline. Cardiovascular: Regular rate and regular rhythm. No murmur, rubs, clicks, or gallops. Peripheral pulses: Radial pulses full. Respiratory: Breathing unlabored. Equal chest rise and fall. Clear to auscultation bilaterally. No stridor, no wheezing, no rhonchi. Gastrointestinal: abdomen is soft, non-tender, non-distended. Neuro: Alert and oriented. Moving all four extremities spontaneously. Cranial nerves intact. Intact sensation to all four extremities. Skin: Warm, dry, and intact. : No R or L CVA tenderness. Psych: Affect: appropriate. Mood: normal. Moderate Sedation - Procedure Monitoring Vital Signs: Procedure Monitoring Vital Signs Temperature 98.1 F 06/16/18 22:06 Pulse Rate 105 H 06/16/18 22:06 Respiratory Rate 16 06/16/18 22:06 Blood Pressure 104/65 06/16/18 22:06 O2 Sat by Pulse Oximetry (%) 100 06/16/18 23:28 ED Treatment Course - LABORATORY CBC & Chemistry Diagram: 06/16/18 23:20 06/17/18 02:35 - ADDITIONAL ORDERS Additional order review: Laboratory Results 06/16/18 06/16/18 06/16/18 23:33 23:20 23:20 Sodium 140 Potassium 5.1 Chloride 101 Carbon Dioxide 25 Anion Gap 14 BUN 20 H Creatinine 1.2 Creat Clearance w eGFR 45.23 Random Glucose 494 H* Calcium 10.0 Total Bilirubin 0.4 AST 20 ALT 24 Alkaline Phosphatase 83 Total Protein 8.0 Albumin 3.6 Urine Color Straw Urine Appearance Clear Urine pH 5.0 Ur Specific [place] 1.020 Urine Protein Negative Urine Glucose (UA) 3+ H Urine Ketones 1+ H Urine Blood Negative Urine Nitrite Negative Urine Bilirubin Negative Urine Urobilinogen Negative Ur Leukocyte Esterase Negative Acetone, Qual Positive small 1+ H 06/16/18 23:20 RBC 4.53 MCV 91.1 MCHC 34.3 RDW 14.9 MPV 11.6 H Neutrophils % 65.6 Lymphocytes % 25.0 Monocytes % 7.7 Eosinophils % 0.8 Basophils % 0.9 - RADIOLOGY Radiology Studies Ordered: Category Date Time Status CXRPORT [CHEST X-RAY PORTABLE*] [RAD] Stat Radiology 06/16/18 23:05 Taken - Medications Given in the ED: ED Medications Discontinued Medications Generic Name Dose Route Start Last Admin Trade Name Freq PRN Reason Stop Dose Admin Insulin Human Regular 10 units 06/16/18 23:49 06/17/18 00:10 Novolin R Vial *For Ivpush Or Iv Drip Only* SQ 06/16/18 23:50 10 units ONCE ONE Administration Sodium Chloride 1,000 ml 06/16/18 23:11 06/17/18 00:10 Normal Saline - IV 06/16/18 23:12 1,000 ml ONCE ONE Administration Medical Decision Making - Medical Decision Making *Reviewed vital signs, nursing notes, and prior visit documentation (if available). 62 y/o female presenting for dizziness, polyuria, dysuria, and polydipsia x3 days. Dizziness resolved with IVFB administration. H/o poorly controlled insulin dependent diabetes. POC BGL above measurable range. Afebrile. Vitals remarkable for borderline tachycardia without hypotension. Physical exam as described above. Suspect hyperglycemic episode with overlying or causative UTI. 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 UA unremarkable for pyuria, nitrites, or leukocyte esterase. Results possibly obscured by recent antibiotic usage. At the same time, pt did just complete a course of antibiotics to which the organism grown on culture was sensitive. Suspect the urinary symptoms are likely related to hyperglycemia. CMP revealed elevated glucose with anion gap of 16. 1+ serum acetone. Pt is not in DKA. Not hypokalemic. Administered 10 units regular insulin SQ, but anticipate this will not likely be successful in lowering BGL given home insulin regimen. Started insulin drip. 01:18 Microblog sent to [facility] for admission for symptomatic hyperglycemia in poorly controlled diabetic. 02:11 Telephone consultation with SHAHAB Diallo. Verbally appraised of the pts HPI, ED course, and current plan of management. Pt will require ICU bed while on insulin drip. 02:21 Telephone conversation with ICU resident. Will confirm requirement for ICU admission while on insulin drip. Requested repeat BMP. 03:22 Telephone conversation with ICU resident regarding repeat BMP. Anion gap has downtrended to 9 with repeat BGL below 400. Will d/c insulin drip. Pt now stable for med/surg floor. *DC/Admit/Observation/Transfer Diagnosis at time of Disposition: Type 2 diabetes mellitus with hyperglycemia Qualifiers: Diabetes mellitus tanning solution maker insulin use: with tanning solution maker use Qualified Code(s): E11.65 - Type 2 diabetes mellitus with hyperglycemia - Discharge Dispostion Condition at time of disposition: Stable Decision to Admit order: Yes - Referrals - Patient Instructions - Post Discharge Activity
[2018-06-17] MEDS ORDERED: SODIUM CHLORIDE 0.9% 500 ML INFUS.BAG IV ONE (00:54)
[2018-06-17] MEDS ORDERED: INSULIN REGULAR 100 UNITS in SODIUM CHLORIDE 99 ML IVPB SCH (01:00)
--- NOTE | 2018-06-17 02:22 | HP ---
Admitting History and Physical - Primary Care Physician PCP: Darion Morales - Admission Chief Complaint: Dizziness, Polyuria, Dysuria History of Present Illness: This is a 62 y/o woman with a past medical history of poorly controlled DM, Diabetic Neuropathy, HTN, CVA. Who presents to the ED with dizziness, polyuria and burning upon urination. Patient is Emir[place] speaking [employer] used # [id number]. Patient reports having dizziness, frequency and dysuria x 3 days. Patient states" I checked my glucose with my home machine and it was 160 in the morning, and 115 in the afternoon. Patient reports having decreased appetite and only eating one meal daily. Patient reports taking her medications as prescribed. Patient denies fever, chills, cough, LEE, blurred vision, SOB, CP, palpitations, AP, N/V/D, constipation. 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) Endocrine: Yes: Diabetes Mellitus - Past Surgical History Past Surgical History: Yes: , Hysterectomy, Tubal Ligation - Smoking History Smoking history: Never smoked Have you smoked in the past 12 months: No - Alcohol/Substance Use Hx Alcohol Use: No History of Substance Use: reports: None - Social History Usual Living Arrangement: Yes: Alone ADL: Independent Occupation: retired History of Recent Travel: No Home Medications - Allergies Allergies/Adverse Reactions: Allergies Allergy/AdvReac Type Severity Reaction Status Date / Time No Known Allergies Allergy Verified 06/16/18 22:08 - Home Medications Home Medications: Ambulatory Orders Aspirin [ASA -] 81 mg PO DAILY tab.chew 01/02/18 Gabapentin [Neurontin -] 400 mg PO TID #30 capsule MDD 3 01/02/18 Rosuvastatin [Crestor -] 40 mg PO HS #30 tablet MDD 1 01/02/18 Polyethylene Glycol 3350 [Miralax 119 gm Btl -] 17 gm PO BID bottle 05/23/18 Insulin (Levemir) [Levemir Vial] 35 units SQ BIDI #100 units MDD 2 05/24/18 Insulin (Novolog) [Novolog] 0 units SQ AC 06/16/18 Family Disease History - Family Disease History Family Disease History: Diabetes: Mother (HTN) Review of Systems - Review of Systems Constitutional: reports: Loss of Appetite Eyes: reports: No Symptoms HENT: reports: No Symptoms Neck: reports: No Symptoms Cardiovascular: reports: No Symptoms Respiratory: reports: No Symptoms Gastrointestinal: reports: No Symptoms Genitourinary: reports: Burning, Dysuria, Frequency Breasts: reports: No Symptoms Reported Musculoskeletal: reports: No Symptoms Integumentary: reports: No Symptoms Neurological: reports: Dizziness Endocrine: reports: Increased Thirst Hematology/Lymphatic: reports: No Symptoms Psychiatric: reports: No Symptoms Physical Examination Vital Signs: Vital Signs Temperature 98.1 F 06/16/18 22:06 Pulse Rate 105 H 06/16/18 22:06 Respiratory Rate 16 06/16/18 22:06 Blood Pressure 104/65 06/16/18 22:06 O2 Sat by Pulse Oximetry (%) 100 06/16/18 23:28 Constitutional: Yes: No Distress, Calm Eyes: Yes: WNL, Conjunctiva Clear, EOM Intact, PERRL HENT: Yes: WNL, Atraumatic, Normocephalic Neck: Yes: WNL, Supple, Trachea Midline Cardiovascular: Yes: WNL, Regular Rate and Rhythm, S1, S2 Respiratory: Yes: WNL, Regular, CTA Bilaterally Gastrointestinal: Yes: WNL, Soft, Hypoactive Bowel Sounds ...Rectal Exam: Yes: Deferred Renal/: Yes: WNL Breast(s): Yes: WNL Musculoskeletal: Yes: WNL Extremities: Yes: WNL Edema: No Peripheral Pulses WNL: Yes Neurological: Yes: WNL, Alert, Oriented, Cran Nerves II-XII Intact Psychiatric: Yes: WNL, Alert, Oriented Labs: CBC, BMP 06/16/18 23:20 06/16/18 23:20 Laboratory Results - last 24 hr 06/16/18 06/16/18 06/16/18 23:20 23:20 23:20 WBC 5.5 RBC 4.53 Hgb 14.2 Hct 41.3 D MCV 91.1 MCH 31.2 MCHC 34.3 RDW 14.9 Plt Count 173 MPV 11.6 H Absolute Neuts (auto) 3.6 Neutrophils % 65.6 Lymphocytes % 25.0 Monocytes % 7.7 Eosinophils % 0.8 Basophils % 0.9 Nucleated RBC % 0 Sodium 140 Potassium 5.1 Chloride 101 Carbon Dioxide 25 Anion Gap 14 BUN 20 H Creatinine 1.2 Creat Clearance w eGFR 45.23 POC Glucometer Random Glucose 494 H* Calcium 10.0 Total Bilirubin 0.4 AST 20 ALT 24 Alkaline Phosphatase 83 Total Protein 8.0 Albumin 3.6 Urine Color Urine Appearance Urine pH Ur Specific [place] Urine Protein Urine Glucose (UA) Urine Ketones Urine Blood Urine Nitrite Urine Bilirubin Urine Urobilinogen Ur Leukocyte Esterase Acetone, Qual Positive small 1+ H 06/16/18 06/17/18 06/17/18 23:33 01:51 02:35 WBC RBC Hgb Hct MCV MCH MCHC RDW Plt Count MPV Absolute Neuts (auto) Neutrophils % Lymphocytes % Monocytes % Eosinophils % Basophils % Nucleated RBC % Sodium 144 Potassium 4.0 Chloride 110 H Carbon Dioxide 25 Anion Gap 9 BUN 17 Creatinine 1.2 Creat Clearance w eGFR 45.23 POC Glucometer > 400 Random Glucose 346 H* Calcium 8.4 L Total Bilirubin AST ALT Alkaline Phosphatase Total Protein Albumin Urine Color Straw Urine Appearance Clear Urine pH 5.0 Ur Specific [place] 1.020 Urine Protein Negative Urine Glucose (UA) 3+ H Urine Ketones 1+ H Urine Blood Negative Urine Nitrite Negative Urine Bilirubin Negative Urine Urobilinogen Negative Ur Leukocyte Esterase Negative Acetone, Qual 06/17/18 03:50 WBC RBC Hgb Hct MCV MCH MCHC RDW Plt Count MPV Absolute Neuts (auto) Neutrophils % Lymphocytes % Monocytes % Eosinophils % Basophils % Nucleated RBC % Sodium Potassium Chloride Carbon Dioxide Anion Gap BUN Creatinine Creat Clearance w eGFR POC Glucometer > 400 Random Glucose Calcium Total Bilirubin AST ALT Alkaline Phosphatase Total Protein Albumin Urine Color Urine Appearance Urine pH Ur Specific [place] Urine Protein Urine Glucose (UA) Urine Ketones Urine Blood Urine Nitrite Urine Bilirubin Urine Urobilinogen Ur Leukocyte Esterase Acetone, Qual Intake & Output 06/14/18 06/15/18 06/16/18 06/17/18 23:59 23:59 23:59 23:59 Weight 56.699 kg Current Medications Generic Name Dose Route Start Last Admin Trade Name Freq PRN Reason Stop Dose Admin Chlorhexidine Gluconate 1 applic 06/17/18 22:00 Hibiclens For Decolonization - TP HS JULIANA Gabapentin 400 mg 06/17/18 06:00 Neurontin - PO TID JULIANA Heparin Sodium (Porcine) 5,000 unit 06/17/18 10:00 Heparin - SQ BID JULIANA Insulin Human Regular 100 100 mls @ 5.66 mls/hr 06/17/18 01:00 06/17/18 01:38 units/ Sodium Chloride IVPB 0.1 units/kg/hr TITR JULIANA 5.66 mls/hr Administration Protocol 0.1 UNITS/KG/HR Potassium Chloride/Sodium Chloride 20 meq in 1,000 mls @ 50 mls/hr 06/17/18 04 :36 06/17/18 04:57 1/2ns+20meq Kcl IV 50 mls/hr ASDIR JULIANA Administration Mupirocin 1 applic 06/17/18 10:00 Bactroban Ointment (For Decolonization) - NS 06/22/18 09:59 BID JULIANA Potassium Chloride 40 meq 06/17/18 04:45 06/17/18 04:57 K-Dur - PO 06/17/18 06:46 40 meq Q2H JULIANA Administration Rosuvastatin Calcium 40 mg 06/17/18 22:00 Crestor - PO HS JULIANA Imaging - Results Chest X-ray: Image Reviewed (no acute pathology) EKG: Image Reviewed Problem List - Problems (1) Secondary DM with DKA, uncontrolled Assessment/Plan: Likely secondary to non-compliance NS Bolus 2L, Novolog given in ED with no improvement Serial BMPs FS Q1H, until FS < 200 Serum Glucose 494~396 Serum Acetone + AG 19~9 FS > 400 Continue Insulin Drip Protocol titrate till FS < 200, then d/c Start IVF- 0.45%WU80XPV@50ml/hr Appreciate Endocrinology consult HgbA1c done on 05/20/18- 14.1 Neuro checks Monitor vitals While patient is on Insulin Drip she will require ICU Admission When patient is off Insulin Drip may be downgraded to M/S floor Code(s): E13.10 - OTH DIABETES MELLITUS WITH KETOACIDOSIS WITHOUT COMA (2) Type 2 diabetes mellitus with hyperglycemia Assessment/Plan: See above Code(s): E11.65 - TYPE 2 DIABETES MELLITUS WITH HYPERGLYCEMIA Qualifiers: Diabetes mellitus penitentiary insulin use: with superintendent marine oil terminal use Qualified Code( s): E11.65 - Type 2 diabetes mellitus with hyperglycemia; Z79.4 - 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 (3) Diabetic neuropathy Assessment/Plan: Stable Continue Gabapentin Code(s): E11.40 - TYPE 2 DIABETES MELLITUS WITH DIABETIC NEUROPATHY, UNSP (4) HTN (hypertension) Assessment/Plan: Stable Monitor BP No current meds Monitor renal function Code(s): I10 - ESSENTIAL (PRIMARY) HYPERTENSION (5) Hyperlipidemia Assessment/Plan: Continue Crestor Monitor LFTs Code(s): E78.5 - HYPERLIPIDEMIA, UNSPECIFIED (6) History of CVA (cerebrovascular accident) Assessment/Plan: Continue home meds Fall Precautions Code(s): Z86.73 - PRSNL HX OF TIA (TIA), AND CEREB INFRC W/O RESID DEFICITS Assessment/Plan This is a 62 y/o woman admitted for Diabetic Ketoacidosis for further evaluation of their emergent condition. Plan: FEN 0.45%NS+20 KCL@50mlhr K repleted, continue to monitor Diabetic, Low Na Diet DVT ppx OOB SCDs Heparin SQ Dispo: Requires Inpatient Care Visit type - Emergency Visit Emergency Visit: Yes ED Registration Date: 06/16/18 Care time: The patient presented to the Emergency Department on the above date and was hospitalized for further evaluation of their emergent condition. - New Patient This patient is new to me today: Yes Date on this admission: 06/17/18 - Critical Care Critical Care patient: Yes Total Critical Care Time (in minutes): 35 Critical Care Statement: The care of this patient involved high complexity decision making to prevent further life threatening deterioration of the patient 's condition and/or to evaluate & treat vital organ system(s) failure or risk of failure.
[2018-06-17 03:18] LABS: ANION GAP 9 MMOL/L (8-16); BLOOD UREA NITROGEN 17 mg/dL (7-18); CALCIUM 8.4 mg/dL (8.5-10.1); CHLORIDE 110 mmol/L (98-107); CO2 25 mmol/L (21-32); CREATININE 1.2 mg/dL (0.55-1.3); SODIUM 144 mmol/L (136-145)
[2018-06-17 03:19] LABS: GLUCOSE,RANDOM 346 mg/dL (74-106)
[2018-06-17] MEDS ORDERED: HEMOQUE TEST 1 EACH EACH ONE ×2 (03:45→04:42)
[2018-06-17] MEDS ORDERED: POTASSIUM CHLORIDE ORAL LIQUID 20 MEQ/15 ML PO ONE (04:12)
[2018-06-17] MEDS ORDERED: SODIUM CHLORIDE 0.45%/POT 20 MEQ/1,000 ML INFUS.BAG IV SCH (04:15)
[2018-06-17] MEDS ORDERED: INSULIN (LEVEMIR) 100 UNITS/ML UNITS SQ ONE ×2 (04:33→04:39)
[2018-06-17] MEDS ORDERED: POTASSIUM CHLORIDE TABS 20 MEQ TABLET.ER (FP) PO ONE ×2 (04:40→06:31)
[2018-06-17] MEDS: SODIUM CHLORIDE 0.45%/POT 20 MEQ/1,000 ML INFUS.BAG IV SCH ×2 (04:57→22:48)
[2018-06-17] MEDS: POTASSIUM CHLORIDE TABS 20 MEQ TABLET.ER (FP) PO SCH ×2 (04:57→06:57)
[2018-06-17 06:14] LABS: BASO % 0.6 % (0-2.0); EOS % 1.2 % (0-4.5); HEMATOCRIT 35.7 % (32.4-45.2); HEMOGLOBIN 11.5 GM/dL (10.7-15.3); LYMPH % 30.1 % (8-40); MCH 29.5 pg (25.7-33.7); MCHC 32.3 g/dl (32.0-36.0); MEAN CELL VOLUME 91.2 fl (80-96); MEAN PLT VOLUME 10.7 fl (7.5-11.1); MONO % 8.6 % (3.8-10.2); NEUT % 59.5 % (42.8-82.8); PLATELET COUNT 136 K/MM3 (134-434); RBC 3.92 M/mm3 (3.60-5.2); WHITE BLOOD COUNT 5.3 K/mm3 (4.0-10.0)
[2018-06-17 06:38] LABS: ANION GAP 5 MMOL/L (8-16); BLOOD UREA NITROGEN 19 mg/dL (7-18); CALCIUM 8.2 mg/dL (8.5-10.1); CHLORIDE 112 mmol/L (98-107); CO2 28 mmol/L (21-32); CREATININE 1.2 mg/dL (0.55-1.3); GLUCOSE,RANDOM 194 mg/dL (74-106); POTASSIUM 3.7 mmol/L (3.5-5.1); SODIUM 144 mmol/L (136-145)
[2018-06-17] MEDS: GABAPENTIN 400 MG CAPSULE (FP) PO SCH ×4 (06:57→22:19)
[2018-06-17] MEDS ORDERED: MUPIROCIN 2% TOPICAL OINTMENT FOR DECOLONIZATION NS SCH (10:00)
[2018-06-17] MEDS ORDERED: ASPIRIN 81 MG CHEWABLE TABLETS ONE ×2 (10:19→10:22)
[2018-06-17] MEDS ORDERED: HEPARIN NA (PORCINE) 5,000 UNITS/ML 1ML VIAL ONE (10:20)
[2018-06-17] MEDS: ASPIRIN 81 MG CHEWABLE TABLETS PO SCH (10:28)
[2018-06-17] MEDS: HEPARIN NA (PORCINE) 5,000 UNITS/ML 1ML VIAL SQ SCH ×2 (10:29→22:19)
[2018-06-17 12:50] LABS: ANION GAP 5 MMOL/L (8-16); BLOOD UREA NITROGEN 15 mg/dL (7-18); CALCIUM 8.5 mg/dL (8.5-10.1); CHLORIDE 110 mmol/L (98-107); CO2 26 mmol/L (21-32); POTASSIUM 4.8 mmol/L (3.5-5.1); SODIUM 142 mmol/L (136-145)
[2018-06-17 14:47] LABS: GLUCOSE,RANDOM 303 mg/dL (74-106)
[2018-06-17] MEDS: INSULIN SLIDING SCALE (NOVOLOG) 1 VIAL SQ SCH ×2 (16:46→22:20)
[2018-06-17] MEDS ORDERED: INSULIN (NOVOLOG) ASPART 100 UNITS/ML 10ML VIAL ONE (16:58)
[2018-06-17] MEDS ORDERED: ONDANSETRON 4 MG/2 ML VIAL ONE (16:58)
[2018-06-17 17:33] LABS: ANION GAP 5 MMOL/L (8-16); BLOOD UREA NITROGEN 16 mg/dL (7-18); CALCIUM 8.7 mg/dL (8.5-10.1); CHLORIDE 106 mmol/L (98-107); CO2 29 mmol/L (21-32); CREATININE 1.1 mg/dL (0.55-1.3); POTASSIUM 4.8 mmol/L (3.5-5.1); SODIUM 139 mmol/L (136-145)
[2018-06-17 17:35] LABS: GLUCOSE,RANDOM 378 mg/dL (74-106)
--- NOTE | 2018-06-17 18:06 | PN ---
Progress Note, Physician Chief Complaint: Past events and notes reviewed awake and alert NAD denies chest pain, sob complain of constipation, no BM x 5 days wbc nl, anion gap~5 History of Present Illness: Patient presented to ED with dizziness, dysyuria glucose level in CMP >400 urine culture pending wbc nl - Current Medication List Current Medications: Active Medications Aspirin (Asa -) 81 mg PO DAILY [facility] Last Admin: 06/17/18 10:28 Dose: 81 mg Chlorhexidine Gluconate (Hibiclens For Decolonization -) 1 applic TP HS [facility] Gabapentin (Neurontin -) 400 mg PO TID [facility] Last Admin: 06/17/18 15:40 Dose: 400 mg Heparin Sodium (Porcine) (Heparin -) 5,000 unit SQ BID [facility] Last Admin: 06/17/18 10:29 Dose: 5,000 unit Potassium Chloride/Sodium Chloride (1/2ns+20meq Kcl) 20 meq in 1,000 mls @ 50 mls/hr IV ASDIR [facility] Last Admin: 06/17/18 04:57 Dose: 50 mls/hr Insulin Aspart (Novolog Vial Sliding Scale -) 1 vial SQ [facility]; Protocol Last Admin: 06/17/18 16:46 Dose: 10 units Mupirocin (Bactroban Ointment (For Decolonization) -) 1 applic NS BID [facility] Stop: 06/22/18 09:59 Last Admin: 06/17/18 10:28 Dose: 1 applic Rosuvastatin Calcium (Crestor -) 40 mg PO [facility] - Objective Vital Signs: Vital Signs Temperature 97.8 F 06/17/18 11:07 Pulse Rate 82 06/17/18 11:07 Respiratory Rate 18 06/17/18 11:07 Blood Pressure 113/73 06/17/18 11:07 O2 Sat by Pulse Oximetry (%) 99 06/17/18 11:07 Constitutional: Yes: Well Nourished, No Distress, Calm Eyes: Yes: Conjunctiva Clear Neck: Yes: Supple Cardiovascular: Yes: Regular Rate and Rhythm Respiratory: Yes: Regular, CTA Bilaterally Gastrointestinal: Yes: Soft, Hypoactive Bowel Sounds Genitourinary: Yes: Other (dysuria) Musculoskeletal: Yes: WNL Extremities: Yes: WNL Edema: No Neurological: Yes: Alert, Oriented Psychiatric: Yes: Alert, Oriented Labs: CBC, BMP 06/17/18 05:08 06/17/18 15:06 Problem List - Problems (1) Type 2 diabetes mellitus with hyperglycemia Code(s): E11.65 - TYPE 2 DIABETES MELLITUS WITH HYPERGLYCEMIA Qualifiers: Diabetes mellitus termite technician insulin use: with termite technician use Qualified Code( s): E11.65 - Type 2 diabetes mellitus with hyperglycemia; Z79.4 - skilled nursing ( current) use of insulin (2) Abdominal pain Code(s): R10.9 - UNSPECIFIED ABDOMINAL PAIN (3) Diabetic neuropathy Code(s): E11.40 - TYPE 2 DIABETES MELLITUS WITH DIABETIC NEUROPATHY, UNSP (4) HTN (hypertension) Code(s): I10 - ESSENTIAL (PRIMARY) HYPERTENSION (5) Hyperlipidemia Code(s): E78.5 - HYPERLIPIDEMIA, UNSPECIFIED Assessment/Plan -cont IVF -montior electrolytes -BGM, ISS, HgA1c -insulin drip was d/c, will start back on home dose of levemir -endo consult -cont gabapentin TID -cont crestor -dvt ppx -abdominal xray, stool softeners
[2018-06-17] MEDS ORDERED: CHLORHEXIDINE GLUCONATE 4% CLEANSER FOR DECOLONIZATION TP SCH (22:00)
[2018-06-17] MEDS ORDERED: ROSUVASTATIN CA 10 MG TABLET (FP) ONE (22:13)
[2018-06-17] MEDS: DOCUSATE SODIUM 100 MG CAPSULE (FP) PO SCH (22:19)
[2018-06-17] MEDS: ROSUVASTATIN CA 20 MG TABLET (FP) PO SCH (22:19)
[2018-06-17] MEDS: SENNOSIDES 8.6MG TABLET (FP) PO SCH (22:19)
[2018-06-18 00:11] VITALS: BMI 24.5
[2018-06-18] MEDS: SODIUM CHLORIDE 0.45%/POT 20 MEQ/1,000 ML INFUS.BAG IV SCH (05:52)
[2018-06-18] MEDS: GABAPENTIN 400 MG CAPSULE (FP) PO SCH ×3 (05:53→21:37)
[2018-06-18] MEDS: INSULIN SLIDING SCALE (NOVOLOG) 1 VIAL SQ SCH ×4 (06:04→21:38)
--- NOTE | 2018-06-18 07:18 | EKG ---
Test Reason : Blood Pressure : / mmHG Vent. Rate : 087 BPM Atrial Rate : 087 BPM P-R Int : 150 ms QRS Dur : 082 ms QT Int : 352 ms P-R-T Axes : 065 014 042 degrees QTc Int : 423 ms NORMAL SINUS RHYTHM POSSIBLE ANTERIOR INFARCT (CITED ON OR BEFORE 31-DEC-2017) ABNORMAL ECG WHEN COMPARED WITH ECG OF 19-MAY-2018 13:21, NO SIGNIFICANT CHANGE WAS FOUND Confirmed by CHARLOTTE PIERSON, ANA ([id number]) on 06/18/2018 7:18:33 AM Referred By: Confirmed By:ANA PORTER MD
[2018-06-18 08:26] LABS: HEMATOCRIT 37.9 % (32.4-45.2); HEMOGLOBIN 12.1 GM/dL (10.7-15.3); MCH 29.5 pg (25.7-33.7); MCHC 31.9 g/dl (32.0-36.0); MEAN CELL VOLUME 92.6 fl (80-96); MEAN PLT VOLUME 10.6 fl (7.5-11.1); PLATELET COUNT 129 K/MM3 (134-434); RDW 14.9 % (11.6-15.6); WHITE BLOOD COUNT 4.4 K/mm3 (4.0-10.0)
[2018-06-18] MEDS: ASPIRIN 81 MG CHEWABLE TABLETS PO SCH (09:04)
[2018-06-18] MEDS: HEPARIN NA (PORCINE) 5,000 UNITS/ML 1ML VIAL SQ SCH ×2 (09:04→21:37)
[2018-06-18 09:23] LABS: ALK PHOS 63 U/L (45-117); ANION GAP 6 MMOL/L (8-16); BILIRUBIN,TOTAL 0.4 mg/dL (0.2-1); BLOOD UREA NITROGEN 16 mg/dL (7-18); CALCIUM 8.6 mg/dL (8.5-10.1); CHLORIDE 110 mmol/L (98-107); CO2 25 mmol/L (21-32); CREATININE 0.9 mg/dL (0.55-1.3); GLUCOSE,RANDOM 225 mg/dL (74-106); POTASSIUM 4.5 mmol/L (3.5-5.1); SGOT/AST 16 U/L (15-37); SGPT/ALT 19 U/L (13-61); SODIUM 141 mmol/L (136-145); TOT PROT 6.5 g/dl (6.4-8.2)
--- NOTE | 2018-06-18 10:33 | PN ---
Progress Note, Physician Chief Complaint: Hyperglycemia History of Present Illness: Pt extremely non compliant outpatient with diet and medication regimen. Known to our service from previous admissions due to same reasons. Last admission approx 1 month ago. Even her daughter was educated extensive in the past by me. - Current Medication List Current Medications: Active Medications Aspirin (Asa -) 81 mg PO DAILY [facility] Last Admin: 06/18/18 09:04 Dose: 81 mg Docusate Sodium (Colace -) 300 mg PO HS [facility] Last Admin: 06/17/18 22:19 Dose: 300 mg Gabapentin (Neurontin -) 400 mg PO TID [facility] Last Admin: 06/18/18 05:53 Dose: 400 mg Heparin Sodium (Porcine) (Heparin -) 5,000 unit SQ BID [facility] Last Admin: 06/18/18 09:04 Dose: 5,000 unit Potassium Chloride/Sodium Chloride (1/2ns+20meq Kcl) 20 meq in 1,000 mls @ 50 mls/hr IV ASDIR [facility] Last Admin: 06/18/18 05:52 Dose: Not Given Insulin Aspart (Novolog Vial Sliding Scale -) 1 vial SQ ACHS [facility]; Protocol Last Admin: 06/18/18 06:04 Dose: Not Given Insulin Detemir (Levemir Vial) 35 units SQ BID JULIANA Rosuvastatin Calcium (Crestor -) 40 mg PO HS [facility] Last Admin: 06/17/18 22:19 Dose: 40 mg Senna (Senna -) 2 tab PO HS [facility] Last Admin: 06/17/18 22:19 Dose: 2 tab - Objective Vital Signs: Vital Signs Temperature 98.4 F 06/18/18 08:00 Pulse Rate 83 06/18/18 08:00 Respiratory Rate 16 06/18/18 08:00 Blood Pressure 130/80 06/18/18 08:00 O2 Sat by Pulse Oximetry (%) 98 06/18/18 03:00 Constitutional: Yes: Well Nourished, No Distress, Calm Cardiovascular: Yes: Regular Rate and Rhythm Respiratory: Yes: Regular Gastrointestinal: Yes: Normal Bowel Sounds, Soft Musculoskeletal: Yes: WNL Extremities: Yes: WNL Edema: No Peripheral Pulses WNL: Yes Neurological: Yes: Alert, Oriented Psychiatric: Yes: Alert, Oriented Labs: CBC, BMP 06/18/18 07:28 06/18/18 07:28 Problem List - Problems (1) Non compliance with medical treatment Assessment/Plan: -compliance and outpatient follow up encouraged Code(s): Z91.19 - PATIENT'S NONCOMPLIANCE W OTH MEDICAL TREATMENT AND REGIMEN (2) Secondary DM with DKA, uncontrolled Assessment/Plan: -better compliance with oral hypoglycemics perhaps? -BGM AC HS -Novolog sliding scale + Levemir 35 units bid -Diabetic/low sodium diet -Endocrinology consult -A1c at 14.1 -otherwise labs unremarkable Code(s): E13.10 - OTH DIABETES MELLITUS WITH KETOACIDOSIS WITHOUT COMA Assessment/Plan see problem list self ambulatory
--- NOTE | 2018-06-18 11:22 | CONSULT ---
Consult Consult Specialty:: Endocrinology Referred by:: Dr Limon Reason for Consultation:: Hyperglycemia - History of Present Illness Chief Complaint: Hyperglycemia History of Present Illness: This is a 62 y/o woman with history of DM, Diabetic Neuropathy, HTN, CVA. Who presents to the ED with dizziness, polyuria and burning upon urination. Patient reported having dizziness, frequency and dysuria x 3 days. Blood has been fluctuating from 40s to 300 at home. No polyuria or polydipsia. Has nocturia about 4 times per day. No visual symptoms. Saw Ophthalmology about 8 months ago. Denies any paresthesia of feet.Pt found to have blood sugar of 494 on admission and admitted for management. 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) Endocrine: Yes: Diabetes Mellitus - Past Surgical History Past Surgical History: Yes: , Hysterectomy, Tubal Ligation - Alcohol/Substance Use Hx Alcohol Use: No History of Substance Use: reports: None - Smoking History Smoking history: Never smoked Have you smoked in the past 12 months: No - Social History Usual Living Arrangement: Alone ADL: Independent Occupation: retired History of Recent Travel: No Home Medications - Allergies Allergies/Adverse Reactions: Allergies Allergy/AdvReac Type Severity Reaction Status Date / Time No Known Allergies Allergy Verified 06/16/18 22:08 - Home Medications Home Medications: Ambulatory Orders Aspirin [ASA -] 81 mg PO DAILY tab.chew 01/02/18 Gabapentin [Neurontin -] 400 mg PO TID #30 capsule MDD 3 01/02/18 Rosuvastatin [Crestor -] 40 mg PO HS #30 tablet MDD 1 01/02/18 Polyethylene Glycol 3350 [Miralax 119 gm Btl -] 17 gm PO BID bottle 05/23/18 Insulin (Levemir) [Levemir Vial] 35 units SQ BIDI #100 units MDD 2 05/24/18 Insulin (Novolog) [Novolog] 0 units SQ AC 06/16/18 Family Disease History - Family Disease History Family Disease History: Diabetes: Mother (HTN) Review of Systems - Review of Systems Constitutional: reports: No Symptoms Eyes: reports: No Symptoms HENT: reports: No Symptoms Neck: reports: No Symptoms Cardiovascular: reports: No Symptoms Respiratory: reports: No Symptoms Gastrointestinal: reports: No Symptoms Genitourinary: reports: Other (Nocturia) Musculoskeletal: reports: No Symptoms Neurological: reports: No Symptoms Endocrine: reports: No Symptoms Physical Exam Vital Signs: Vital Signs Temperature 98.4 F 06/18/18 08:00 Pulse Rate 83 06/18/18 08:00 Respiratory Rate 16 06/18/18 08:00 Blood Pressure 130/80 06/18/18 08:00 O2 Sat by Pulse Oximetry (%) 98 06/18/18 09:00 Constitutional: Yes: No Distress HENT: Yes: Atraumatic, Normocephalic Neck: Yes: Trachea Midline Cardiovascular: Yes: Regular Rate and Rhythm Respiratory: Yes: Regular, CTA Bilaterally Gastrointestinal: Yes: Normal Bowel Sounds, Soft Musculoskeletal: Yes: WNL Extremities: Yes: WNL Edema: No Neurological: Yes: WNL, Alert, Oriented Labs: CBC, BMP 06/18/18 07:28 06/18/18 07:28 Assessment/Plan T2DM uncontrolled with hyperglycemia: A1c 14.1 Admission A Gap 14 and CO2 25 with Acetone + Treated with IV insulin in ICU with improvement in blood sugar BGM QACHS Levemir 25 in AM and 15 in PM Novolog SS coverage Unclear if pt was actually taking 35 BID and with change in diet in the hospital will likely need less Insulin Will adjust dose as necessay Discussed with daughter over the phone
[2018-06-18] MEDS ORDERED: INSULIN (NOVOLOG) ASPART 100 UNITS/ML 10ML VIAL ONE ×2 (11:47→16:21)
[2018-06-18] MEDS ORDERED: INSULIN (LEVEMIR) 100 UNITS/ML UNITS SQ ONE (14:59)
[2018-06-18] MEDS ORDERED: ROSUVASTATIN CA 10 MG TABLET (FP) ONE (21:18)
[2018-06-18] MEDS: ROSUVASTATIN CA 20 MG TABLET (FP) PO SCH (21:37)
[2018-06-18] MEDS: DOCUSATE SODIUM 100 MG CAPSULE (FP) PO SCH (21:37)
[2018-06-18] MEDS: SENNOSIDES 8.6MG TABLET (FP) PO SCH (21:37)
[2018-06-18] MEDS ORDERED: INSULIN (LEVEMIR) 100 UNITS/ML UNITS SQ SCH ×2 (22:00)
[2018-06-19] MEDS: SODIUM CHLORIDE 0.45%/POT 20 MEQ/1,000 ML INFUS.BAG IV SCH ×2 (04:40→15:05)
[2018-06-19] MEDS: GABAPENTIN 400 MG CAPSULE (FP) PO SCH ×3 (05:53→21:31)
[2018-06-19] MEDS: INSULIN SLIDING SCALE (NOVOLOG) 1 VIAL SQ SCH ×4 (06:08→21:32)
[2018-06-19] MEDS ORDERED: INSULIN (LEVEMIR) 100 UNITS/ML UNITS SQ SCH (07:00)
[2018-06-19] MEDS: HEPARIN NA (PORCINE) 5,000 UNITS/ML 1ML VIAL SQ SCH ×2 (09:19→21:32)
[2018-06-19] MEDS: ASPIRIN 81 MG CHEWABLE TABLETS PO SCH (09:19)
[2018-06-19] MEDS ORDERED: INSULIN (NOVOLOG) ASPART 100 UNITS/ML 10ML VIAL ONE (12:04)
--- NOTE | 2018-06-19 13:25 | PN ---
Progress Note, Physician Chief Complaint: AWAKE ALERT EVENTS AND NOTES REVIEWED - Current Medication List Current Medications: Active Medications Aspirin (Asa -) 81 mg PO DAILY [facility] Last Admin: 06/19/18 09:19 Dose: 81 mg Docusate Sodium (Colace -) 300 mg PO HS [facility] Last Admin: 06/18/18 21:37 Dose: 300 mg Gabapentin (Neurontin -) 400 mg PO TID [facility] Last Admin: 06/19/18 05:53 Dose: 400 mg Heparin Sodium (Porcine) (Heparin -) 5,000 unit SQ BID [facility] Last Admin: 06/19/18 09:19 Dose: 5,000 unit Potassium Chloride/Sodium Chloride (1/2ns+20meq Kcl) 20 meq in 1,000 mls @ 50 mls/hr IV ASDIR [facility] Last Admin: 06/19/18 04:40 Dose: Not Given Insulin Aspart (Novolog Vial Sliding Scale -) 1 vial SQ TIDAC [facility]; Protocol Last Admin: 06/19/18 12:06 Dose: 10 units Insulin Aspart (Novolog Vial Sliding Scale -) 1 vial SQ [facility]; Protocol Last Admin: 06/18/18 21:38 Dose: 4 units Insulin Detemir (Levemir Vial) 25 units SQ AM [facility] Last Admin: 06/19/18 06:07 Dose: Not Given Insulin Detemir (Levemir Vial) 15 units SQ HS [facility] Last Admin: 06/18/18 21:38 Dose: 15 units Rosuvastatin Calcium (Crestor -) 40 mg PO HS [facility] Last Admin: 06/18/18 21:37 Dose: 40 mg Senna (Senna -) 2 tab PO HS [facility] Last Admin: 06/18/18 21:37 Dose: 2 tab - Objective Vital Signs: Vital Signs Temperature 98.3 F 06/19/18 06:00 Pulse Rate 87 06/19/18 06:00 Respiratory Rate 18 06/19/18 06:00 Blood Pressure 141/86 06/19/18 06:00 O2 Sat by Pulse Oximetry (%) 98 06/19/18 05:00 Constitutional: Yes: Mild Distress Eyes: Yes: WNL HENT: Yes: WNL Neck: Yes: WNL Cardiovascular: Yes: WNL Respiratory: Yes: WNL Gastrointestinal: Yes: WNL Genitourinary: Yes: WNL Musculoskeletal: Yes: WNL Extremities: Yes: WNL Peripheral Pulses WNL: Yes Integumentary: Yes: WNL Neurological: Yes: WNL ...Motor Strength: WNL Psychiatric: Yes: Other Labs: CBC, BMP 06/18/18 07:28 06/18/18 12:20 Problem List - Problems (1) Non compliance with medical treatment Code(s): Z91.19 - PATIENT'S NONCOMPLIANCE W OTH MEDICAL TREATMENT AND REGIMEN (2) Secondary DM with DKA, uncontrolled Code(s): E13.10 - OTH DIABETES MELLITUS WITH KETOACIDOSIS WITHOUT COMA (3) Type 2 diabetes mellitus with hyperglycemia Code(s): E11.65 - TYPE 2 DIABETES MELLITUS WITH HYPERGLYCEMIA Qualifiers: Diabetes 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
--- NOTE | 2018-06-19 15:43 | PN ---
Progress Note (short form) - Note Progress Note: Denies any complaints No abd pain, Vital Signs Period Temp Pulse Resp BP Sys/Haskins Pulse Ox Last 24 Hr 97.9 F-98.6 F 80-96 18-19 115-141/73-86 98-98 PE: Aox3 N margoth: supple, No JVD HEENT: EOMI Lungs: CTA CVS: S1S2 Abd: Benign Ext: No edema Neuro: No focal deficit CMP Sodium 141 mmol/L (136-145) 06/18/18 07:28 Potassium 4.5 mmol/L (3.5-5.1) 06/18/18 07:28 Chloride 110 mmol/L (98-107) H 06/18/18 07:28 Carbon Dioxide 25 mmol/L (21-32) 06/18/18 07:28 Anion Gap 6 MMOL/L (8-16) L 06/18/18 07:28 BUN 16 mg/dL (7-18) 06/18/18 07:28 Creatinine 0.9 mg/dL (0.55-1.3) 06/18/18 07:28 Creat Clearance w eGFR > 60 (>60) 06/18/18 07:28 POC Glucometer 359 UNITS (80-120) 06/19/18 12:01 Random Glucose 408 mg/dL (74-106) H* 06/18/18 12:20 Hemoglobin A1c % 14.1 % (4.2-6.3) H 06/18/18 07:28 Calcium 8.6 mg/dL (8.5-10.1) 06/18/18 07:28 Total Bilirubin 0.4 mg/dL (0.2-1) 06/18/18 07:28 AST 16 U/L (15-37) 06/18/18 07:28 ALT 19 U/L (13-61) 06/18/18 07:28 Alkaline Phosphatase 63 U/L (45-117) 06/18/18 07:28 Total Protein 6.5 g/dl (6.4-8.2) 06/18/18 07:28 Albumin 3.0 g/dl (3.4-5.0) L 06/18/18 07:28 Current Medications Generic Name Dose Route Start Last Admin Trade Name Freq PRN Reason Stop Dose Admin Aspirin 81 mg 06/17/18 10:00 06/19/18 09:19 Asa - PO 81 mg DAILY JULIANA Administration Docusate Sodium 300 mg 06/17/18 22:00 06/18/18 21:37 Colace - PO 300 mg HS JULIANA Administration Gabapentin 400 mg 06/17/18 06:00 06/19/18 13:51 Neurontin - PO 400 mg TID JULIANA Administration Heparin Sodium (Porcine) 5,000 unit 06/17/18 10:00 06/19/18 09:19 Heparin - SQ 5,000 unit BID JULIANA Administration Potassium Chloride/Sodium Chloride 20 meq in 1,000 mls @ 50 mls/hr 06/17/18 04 :36 06/19/18 15:05 1/2ns+20meq Kcl IV 50 mls/hr ASDIR JULIANA Administration Insulin Aspart 1 vial 06/18/18 16:30 06/19/18 12:06 Novolog Vial Sliding Scale - SQ 10 units TIDAC JULIANA Administration Protocol Insulin Aspart 1 vial 06/18/18 22:00 06/18/18 21:38 Novolog Vial Sliding Scale - SQ 4 units HS JULIANA Administration Protocol Insulin Detemir 25 units 06/19/18 07:00 06/19/18 06:07 Levemir Vial SQ Not Given AM JULIANA Insulin Detemir 15 units 06/18/18 22:00 06/18/18 21:38 Levemir Vial SQ 15 units HS JULIANA Administration Rosuvastatin Calcium 40 mg 06/17/18 22:00 06/18/18 21:37 Crestor - PO 40 mg HS JULIANA Administration Senna 2 tab 06/17/18 22:00 06/18/18 21:37 Senna - PO 2 tab HS JULIANA Administration AP: T2DM uncontrolled with hyperglycemia: A1c 14.1 Discussed with patient and daughter at bedside. Pt has been noncompliant with diet. Takes Lantus 30 units BID at home with 10 to 18 units premeal Insulin with meals. Was on oral meds in the past including Metformin exercise discussed. No juice sodas or other sugary drinks. Admission A Gap 14 and CO2 25 with Acetone + Treated with IV insulin in ICU with improvement in blood sugar BGM QACHS Levemir 18 units BID Increase Novolog SS coverage, to be given just before food Add Metformin 500mg BID with food Will F/U
[2018-06-19] MEDS: metFORMIN HCL 500 MG TABLET (FP) PO SCH (16:57)
[2018-06-19] MEDS ORDERED: ROSUVASTATIN CA 10 MG TABLET (FP) ONE (21:14)
[2018-06-19] MEDS: ROSUVASTATIN CA 20 MG TABLET (FP) PO SCH (21:30)
[2018-06-19] MEDS: INSULIN (LEVEMIR) 100 UNITS/ML UNITS SQ SCH (21:31)
[2018-06-19] MEDS: SENNOSIDES 8.6MG TABLET (FP) PO SCH (21:31)
[2018-06-19] MEDS: DOCUSATE SODIUM 100 MG CAPSULE (FP) PO SCH (21:31)
[2018-06-20] MEDS: SODIUM CHLORIDE 0.45%/POT 20 MEQ/1,000 ML INFUS.BAG IV SCH (06:35)
[2018-06-20] MEDS: INSULIN (LEVEMIR) 100 UNITS/ML UNITS SQ SCH (06:38)
[2018-06-20] MEDS: metFORMIN HCL 500 MG TABLET (FP) PO SCH (06:38)
[2018-06-20] MEDS: GABAPENTIN 400 MG CAPSULE (FP) PO SCH ×2 (06:38→14:08)
[2018-06-20] MEDS: INSULIN SLIDING SCALE (NOVOLOG) 1 VIAL SQ SCH ×2 (06:39→11:52)
[2018-06-20] MEDS ORDERED: INSULIN (LEVEMIR) 100 UNITS/ML UNITS SQ SCH (07:00)
[2018-06-20] MEDS: ASPIRIN 81 MG CHEWABLE TABLETS PO SCH (10:44)
[2018-06-20] MEDS: HEPARIN NA (PORCINE) 5,000 UNITS/ML 1ML VIAL SQ SCH (10:44)
[2018-06-20] MEDS ORDERED: INSULIN (NOVOLOG) ASPART 100 UNITS/ML 10ML VIAL ONE (11:47)
--- NOTE | 2018-06-20 13:13 | PN ---
Progress Note (short form) - Note Progress Note: Denies any complaints No abd pain, Fluctuating blood sugar, Eager to go home Vital Signs Period Temp Pulse Resp BP Sys/Haskins Pulse Ox Last 24 Hr 98 F-98.3 F 86-90 20-20 127-135/77-79 98 PE: Aox3 N margoth: supple, No JVD HEENT: EOMI Lungs: CTA CVS: S1S2 Abd: Benign Ext: No edema Neuro: No focal deficit CMP Sodium 141 mmol/L (136-145) 06/18/18 07:28 Potassium 4.5 mmol/L (3.5-5.1) 06/18/18 07:28 Chloride 110 mmol/L (98-107) H 06/18/18 07:28 Carbon Dioxide 25 mmol/L (21-32) 06/18/18 07:28 Anion Gap 6 MMOL/L (8-16) L 06/18/18 07:28 BUN 16 mg/dL (7-18) 06/18/18 07:28 Creatinine 0.9 mg/dL (0.55-1.3) 06/18/18 07:28 Creat Clearance w eGFR > 60 (>60) 06/18/18 07:28 POC Glucometer 311 UNITS (80-120) 06/20/18 11:42 Random Glucose 408 mg/dL (74-106) H* 06/18/18 12:20 Hemoglobin A1c % 14.1 % (4.2-6.3) H 06/18/18 07:28 Calcium 8.6 mg/dL (8.5-10.1) 06/18/18 07:28 Total Bilirubin 0.4 mg/dL (0.2-1) 06/18/18 07:28 AST 16 U/L (15-37) 06/18/18 07:28 ALT 19 U/L (13-61) 06/18/18 07:28 Alkaline Phosphatase 63 U/L (45-117) 06/18/18 07:28 Total Protein 6.5 g/dl (6.4-8.2) 06/18/18 07:28 Albumin 3.0 g/dl (3.4-5.0) L 06/18/18 07:28 Current Medications Generic Name Dose Route Start Last Admin Trade Name Freq PRN Reason Stop Dose Admin Aspirin 81 mg 06/17/18 10:00 06/20/18 10:44 Asa - PO 81 mg DAILY JULIANA Administration Docusate Sodium 300 mg 06/17/18 22:00 06/19/18 21:31 Colace - PO 300 mg HS JULIANA Administration Gabapentin 400 mg 06/17/18 06:00 06/20/18 06:38 Neurontin - PO 400 mg TID JULIANA Administration Heparin Sodium (Porcine) 5,000 unit 06/17/18 10:00 06/20/18 10:44 Heparin - SQ 5,000 unit BID JULIANA Administration Potassium Chloride/Sodium Chloride 20 meq in 1,000 mls @ 50 mls/hr 06/17/18 04 :36 06/20/18 06:35 1/2ns+20meq Kcl IV Not Given ASDIR JULIANA Insulin Aspart 1 vial 06/18/18 22:00 06/19/18 21:32 Novolog Vial Sliding Scale - SQ 8 units HS JULIANA Administration Protocol Insulin Aspart 1 vial 06/19/18 16:30 06/20/18 11:52 Novolog Vial Sliding Scale - SQ 10 units TIDAC JULIANA Administration Protocol Insulin Detemir 18 units 06/19/18 22:00 06/20/18 06:38 Levemir Vial SQ 18 units 0700,2200 JULIANA Administration Metformin HCl 500 mg 06/19/18 16:30 06/20/18 06:38 Glucophage - PO 500 mg BID@0700,1630 JULIANA Administration Rosuvastatin Calcium 40 mg 06/17/18 22:00 06/19/18 21:30 Crestor - PO 40 mg HS JULIANA Administration Senna 2 tab 06/17/18 22:00 06/19/18 21:31 Senna - PO 2 tab HS JULIANA Administration AP: T2DM uncontrolled with hyperglycemia: A1c 14.1 Discussed with patient and daughter. Pt has been noncompliant with diet. Takes Lantus 30 units BID at home with 10 to 18 units premeal Insulin with meals. Was on oral meds in the past including Metformin exercise discussed. No juice sodas or other sugary drinks. Admission A Gap 14 and CO2 25 with Acetone + Treated with IV insulin in ICU with improvement in blood sugar BGM QACHS Levemir 18 units BID Increase Novolog SS coverage, to be given just before food Metformin 500mg BID with food, increase to 1000mg BID as if tolerated Will F/U
[2018-06-20 14:28] VITALS: BP 128/74; PULSE 96; TEMP 98.4
--- NOTE | 2018-06-20 15:08 | PN ---
Progress Note, Physician Chief Complaint: Hyperglycemia History of Present Illness: Pt extremely non compliant outpatient with diet and medication regimen. Known to our service from previous admissions due to same reasons. Last admission approx 1 month ago. Even her daughter was educated extensive in the past by me. Seen by Endocrinology, started on Metformin 500 mg po bid - Current Medication List Current Medications: Active Medications Aspirin (Asa -) 81 mg PO DAILY [facility] Last Admin: 06/20/18 10:44 Dose: 81 mg Docusate Sodium (Colace -) 300 mg PO HS [facility] Last Admin: 06/19/18 21:31 Dose: 300 mg Gabapentin (Neurontin -) 400 mg PO TID [facility] Last Admin: 06/20/18 14:08 Dose: 400 mg Heparin Sodium (Porcine) (Heparin -) 5,000 unit SQ BID [facility] Last Admin: 06/20/18 10:44 Dose: 5,000 unit Potassium Chloride/Sodium Chloride (1/2ns+20meq Kcl) 20 meq in 1,000 mls @ 50 mls/hr IV ASDIR [facility] Last Admin: 06/20/18 06:35 Dose: Not Given Insulin Aspart (Novolog Vial Sliding Scale -) 1 vial SQ HS [facility]; Protocol Last Admin: 06/19/18 21:32 Dose: 8 units Insulin Aspart (Novolog Vial Sliding Scale -) 1 vial SQ TIDAC [facility]; Protocol Last Admin: 06/20/18 11:52 Dose: 10 units Insulin Detemir (Levemir Vial) 18 units SQ 0700,2200 [facility] Last Admin: 06/20/18 06:38 Dose: 18 units Metformin HCl (Glucophage -) 500 mg PO BID@0700,1630 [facility] Last Admin: 06/20/18 06:38 Dose: 500 mg Rosuvastatin Calcium (Crestor -) 40 mg PO HS [facility] Last Admin: 06/19/18 21:30 Dose: 40 mg Senna (Senna -) 2 tab PO HS [facility] Last Admin: 06/19/18 21:31 Dose: 2 tab - Objective Vital Signs: Vital Signs Temperature 98.4 F 06/20/18 14:00 Pulse Rate 96 H 06/20/18 14:00 Respiratory Rate 20 06/20/18 14:00 Blood Pressure 128/74 06/20/18 14:00 O2 Sat by Pulse Oximetry (%) 98 06/19/18 21:00 Constitutional: Yes: Well Nourished, No Distress, Calm Cardiovascular: Yes: Regular Rate and Rhythm Respiratory: Yes: Regular Gastrointestinal: Yes: Normal Bowel Sounds, Soft Musculoskeletal: Yes: WNL Extremities: Yes: WNL Edema: No Peripheral Pulses WNL: Yes Neurological: Yes: Alert, Oriented Psychiatric: Yes: Alert, Oriented Labs: CBC, BMP 06/18/18 07:28 06/18/18 12:20 Problem List - Problems (1) Non compliance with medical treatment Assessment/Plan: -compliance and outpatient follow up encouraged Code(s): Z91.19 - PATIENT'S NONCOMPLIANCE W OTH MEDICAL TREATMENT AND REGIMEN (2) Secondary DM with DKA, uncontrolled Assessment/Plan: -better compliance with oral hypoglycemics perhaps? -BGM AC HS -Novolog sliding scale + Levemir 18 units bid -Diabetic/low sodium diet -Endocrinology consult -A1c at 14.1 -Started on metformin 500 mg po BID, increase to 1000 mg po bid -F/U with endocrinology outpatient -otherwise labs unremarkable Code(s): E13.10 - OTH DIABETES MELLITUS WITH KETOACIDOSIS WITHOUT COMA Assessment/Plan see problem list self ambulatory
[2018-06-20] MEDS ORDERED: INSULIN SLIDING SCALE (NOVOLOG) 1 VIAL SQ SCH (17:33)
== END 2018-06-20 18:08 | disposition home health service (06) | DRG 420 ==
LOC: JER 21:57 → JERBED 06-17 01:21 → OBSVTOIN 06-17 06:40 → J6S 06-17 20:50
PROVIDERS: ADMIT Internal Medicine; ATTEND Family Medicine
DX: E11.10 Type 2 diabetes mellitus with ketoacidosis without coma (principal); E11.65 Type 2 diabetes mellitus with hyperglycemia; E11.40 Type 2 diabetes mellitus with diabetic neuropathy, unspecified; I10 Essential (primary) hypertension; E78.5 Hyperlipidemia, unspecified; Z91.19 Patient's noncompliance with other medical treatment and regimen; Z79.4 Long term (current) use of insulin; F32.9 Major depressive disorder, single episode, unspecified; Z86.73 Personal history of transient ischemic attack (TIA), and cerebral infarction without residual deficits
CPT/HCPCS: 36415; 71045-TC-FY; 74019-TC-FY; 80048; 80053; 81003; 82009; 82947; 82962; 83036; 85025; 85027; 87086; 93005; 93010; 99284-25; G0378; J1644; J3480

== ENCOUNTER 2018-07-08 13:55 | Inpatient (IN) | payer OTHER ==
--- NOTE | 2018-07-08 14:39 | PDOC ---
Attending Attestation - HPI HPI: 07/08/18 15:42 The patient is a 62 year old female, with a significant past medical history of HTN, CVA, depression, diabetes (hyperglycemia and DKA), depression, and schizophrenia, who presents to the emergency department with, 1 day of lethargy , dizziness, and elevated blood glucose levels after not taking her medications. Patient endorses 1 week of urinary frequency. Patient was recently admitted 06/17 for similar symptoms. She denies recent fevers, chills, headache or dizziness. She denies recent nausea, vomit, diarrhea or constipation. She denies recent dysuria or hematuria. She denies recent chest pain or shortness of breath. Allergies: NKDA Past surgical history: Uterine fibroid removal. Social history: Nonsmoker. Denies EtOH use and recreational drug use. Primary Care Physician: Dr. Morales - Medical Decision Making 07/08/18 15:54 Call placed to patient's psychiatrist Dr. Lázaro Velasquez ( ), awaiting call back. <Natalia Cui - Last Filed: 07/08/18 15:54> - Resident Resident Name: Kwame Gee - ED Attending Attestation I have performed the following: I have examined & evaluated the patient, The case was reviewed & discussed with the resident, I agree w/resident's findings & plan, Exceptions are as noted - Physicial Exam PE: GENERAL: Awake, alert, in no acute distress. Oriented to person and place. Minimally verbal. HEAD: No signs of trauma EYES: PERRLA, EOMI, sclera anicteric, conjunctiva clear ENT: Auricles normal inspection, hearing grossly normal, nares patent, oropharynx clear without exudates. Dry mucosa NECK: Normal ROM, supple, no lymphadenopathy, JVD, or masses LUNGS: Breath sounds equal, clear to auscultation bilaterally. No wheezes, and no crackles HEART: Regular rate and rhythm, normal S1 and S2, no murmurs, rubs or gallops ABDOMEN: Soft, nontender, normoactive bowel sounds. No guarding, no rebound. No masses EXTREMITIES: R foot with partial amputations of toes 3-5. Remainder of extremities with normal range of motion, no edema. No clubbing or cyanosis. No cords, erythema, or tenderness. NEUROLOGICAL: Cranial nerves II through XII grossly intact. Paucity of speech. Motor and sensation intact SKIN: Warm, Dry, normal turgor, no rashes or lesions noted. - Medical Decision Making Pt presents with AMS. As per family she is typically very talkative, but has been speaking much less than usual, appears to be lethargic at times. Noted to have hyperglycemia at home on glucometer. Inciting event may be an infectious process- will check labs, UA, and CXR. No signs of skin infection. DDx includes DKA, HHS, CVA, pna, UTI. Will obtain labs (including serum osm and acetone), urine, CXR, CTH. Admit. <Lilly Nathan - Last Filed: 07/08/18 16:18> Attestations - Attestations 07/08/18 15:42 Documentation prepared by Natalia Cui, acting as medical lab assistant for Lilly Nathan MD. <Natalia Cui - Last Filed: 07/08/18 15:54>
--- NOTE | 2018-07-08 14:56 | PDOC ---
History of Present Illness - General Chief Complaint: Blood Sugar Problem Stated Complaint: SUGAR PROBLEM Time Seen by Provider: 07/08/18 14:13 History Source: Patient, Family, Pastry Assistant Used Exam Limitations: Clinical Condition, Language Barrier - History of Present Illness Initial Comments: 07/08/18 14:53 Pt. is a 62 y.o. Azeri-speaking F w/ PMHx. of NIDDM, schizophrenia, depression , HLD, and CVA (2/2 hyperglycemic coma), presents to the ED with generalized weakness and "blood sugars above 600." Pt. presents as very lethargic and weak so history was obtained from daughter and health care proxy Artie ([phone]). Pt. was recently admitted for similar symptoms. Pt. states she was told she had a UTI recently and is on Abx? Pt. endorses chills/shakes a couple days ago. Pt. endorses burning sensation on urination and increased frequency of urination. Pt. has been having difficulty swallowing for a few months now and had had decreased appetite with 30-40 pound weight loss over the last few months. Pt. has never had a colonoscopy or endoscopy?( Per chart review Pt. stated she had one in the remote past, during last hospital admission) Pt. states that she takes her medication most of the time but per family this is not completely accurate. Pt. ambulates with a cane but has been unable to move around much over the last few days. Pt. lives with the other daughter (not Artie) and has VNS for 5 hours, 3 days a week. [facility] is closed and Pt. nor family remembers Schizophrenia medication or depression medication. Pt.'s Psychiatrist is Dr. Velasquez. 07/08/18 15:[address] Velasquez to find out medication history of psych meds. 07/08/18 17:38 Pt. receiving 2nd L of NS. 07/08/18 17:50 Microblog sent to [facility] Admitting. Awaiting VBG results. Suspicious for HHS. . 07/08/18 18:53 Timing/Duration: 1 week Modifying Factors: improves with: rest Associated Symptoms: reports: loss of appetite, weakness. denies: chest pain, cough, fever/chills, headaches, nausea/vomiting Aspirin Received prior to arrival: Yes: 81 mg x 1 Past History - Travel Traveled outside of the country in the last 30 days: No Close contact w/someone who was outside of country & ill: No - Past Medical History Allergies/Adverse Reactions: Allergies Allergy/AdvReac Type Severity Reaction Status Date / Time No Known Allergies Allergy Verified 07/08/18 14:08 Home Medications: Ambulatory Orders Gabapentin [Neurontin -] 400 mg PO TID #30 capsule MDD 3 01/02/18 Rosuvastatin [Crestor -] 40 mg PO HS #30 tablet MDD 1 01/02/18 Polyethylene Glycol 3350 [Miralax 119 gm Btl -] 17 gm PO BID bottle 05/23/18 Insulin (Novolog) [Novolog -] 0 units SQ AC 06/16/18 Aspirin [ASA -] 81 mg PO DAILY tab.chew 06/20/18 Docusate Sodium [Colace -] 300 mg PO HS #90 capsule 06/20/18 Insulin (Levemir) [Levemir Vial] 18 units SQ 0700,2200 units 06/20/18 Metformin HCl [Glucophage] 1,000 mg PO BID #60 tablet 06/20/18 Sennosides [Senna -] 2 tab PO HS #60 tablet 06/20/18 Asthma: No CVA: Yes COPD: No Diabetes: Yes (neuropathy) Disorders: Yes (recurrent UTIs) HTN: Yes Hypercholesterolemia: Yes Psychiatric Problems: Yes (Depression) Thyroid Disease: No - Surgical History Cardiac Surgery: No Gastric Stapling: No GI Surgery: No Lung Surgery: No Neurologic Surgery: No - Immunization History Immunization Up to Date: No - Suicide/Smoking/Psychosocial Hx Smoking History: Never smoked Have you smoked in the past 12 months: No Information on smoking cessation initiated: No Hx Alcohol Use: No Drug/Substance Use Hx: No Substance Use Type: None Hx Substance Use Treatment: No Review of Systems - Review of Systems Able to Perform ROS?: Yes Is the patient limited Uzbek proficient: Yes Constitutional: Yes: Symptoms Reported, Chills, Fever, Loss of Appetite, Weakness, Unintentional Wgt. Loss, Unexplained wgt Loss HEENTM: Yes: Difficulty Swallowing. No: Recent change in vision, Nose Congestion, Hearing Loss Respiratory: No: Symptoms reported Cardiac (ROS): No: Symptoms Reported ABD/GI: Yes: Symptoms Reported, Difficulty Swallowing, Poor Appetite, Poor Fluid Intake. No: Nausea, Rectal Bleeding, Vomiting, Indigestion : Yes: Symptoms Reported, See HPI, Burning, Dysuria, Frequency, Urgency. No: Flank Pain, Hematuria Musculoskeletal: Yes: Symptoms Reported, Muscle Weakness Integumentary: No: Symptoms Reported Neurological: Yes: Weakness Psychiatric: Yes: Depression Endocrine: Yes: Symptoms Reported, Increased Thirst, Unexplained Weight Loss, Change in Weight Hematologic/Lymphatic: No: Symptoms Reported *Physical Exam - Vital Signs Last Vital Signs Temp Pulse Resp BP Pulse Ox 98.5 F 111 H 20 101/62 96 07/08/18 14:09 07/08/18 14:09 07/08/18 14:09 07/08/18 14:09 07/08/18 14:09 - Physical Exam General Appearance: Yes: Appropriately Dressed, Apparent Distress, Moderate Distress, Thin HEENT: positive: EOMI, MANDI, Symmetrical, Pharynx Normal, Muffled/Hoarse voice, Hearing Grossly Normal. negative: Pharyngeal Erythema, Tonsillar Exudate, Tonsillar Erythema Neck: positive: Trachea midline, Normal Thyroid, Supple. negative: Carotid bruit Respiratory/Chest: positive: Lungs Clear, Normal Breath Sounds. negative: Respiratory Distress, Accessory Muscle Use, Labored Respiration, Rapid RR, Crackles, Rales, Wheezing Cardiovascular: positive: Regular Rhythm, Regular Rate, S1, S2, Murmur. negative: Edema, JVD Vascular Pulses: Dorsalis-Pedis (R): 1+ (2+ radial), Doralis-Pedis (L): 1+ (2+ radial) Gastrointestinal/Abdominal: positive: Flat, Soft, Increased Bowel Sounds, Tenderness. negative: Protuberent, Distended, Guarding (suprapubic and RLQ), Rebound Rectal Exam: positive: deferred Musculoskeletal: positive: Normal Inspection. negative: CVA Tenderness, Vertebral Tenderness Extremity: positive: Normal Capillary Refill, Tender, Coldness. negative: Normal Inspection, Swelling, Calf Tenderness, Erythema, Inflammation (Right self amputated toes TTP) Integumentary: positive: Normal Color, Dry, Cold. negative: Cyanotic, Erythema , Petechiae, Rash, Swelling, Ecchymosis Neurologic: positive: Fully Oriented, Alert, Normal Response, Respond to painful stimul, Responsive. negative: Facial Droop Moderate Sedation - Procedure Monitoring Vital Signs: Procedure Monitoring Vital Signs Temperature 98.5 F 07/08/18 14:09 Pulse Rate 111 H 07/08/18 14:09 Respiratory Rate 20 07/08/18 14:09 Blood Pressure 101/62 07/08/18 14:09 O2 Sat by Pulse Oximetry (%) 96 07/08/18 14:09 ED Treatment Course - LABORATORY CBC & Chemistry Diagram: 07/08/18 16:00 07/08/18 16:00 *DC/Admit/Observation/Transfer Diagnosis at time of Disposition: Dehydration, T2DM (type 2 diabetes mellitus), Hyperglycemia due to type 2 diabetes mellitus, Right foot pain, Diabetes mellitus with hyperosmolarity, with long-term current use of insulin, Non compliance with medical treatment, Poorly controlled diabetes mellitus - Discharge Dispostion Decision to Admit order: Yes - Referrals Referrals: Darion Morales [Primary Care Provider] - - Patient Instructions - Post Discharge Activity
[2018-07-08] MEDS ORDERED: SODIUM CHLORIDE 1,000 ML IV SCH (15:30)
[2018-07-08 16:18] LABS: BASO % 0.4 % (0-2.0); EOS % 0.4 % (0-4.5); HEMATOCRIT 38.7 % (32.4-45.2); HEMOGLOBIN 13.1 GM/dL (10.7-15.3); LYMPH % 14.4 % (8-40); MCH 30.9 pg (25.7-33.7); MCHC 33.7 g/dl (32.0-36.0); MEAN CELL VOLUME 91.7 fl (80-96); MEAN PLT VOLUME 11.1 fl (7.5-11.1); NEUT % 75.8 % (42.8-82.8); PLATELET COUNT 178 K/MM3 (134-434); RBC 4.23 M/mm3 (3.60-5.2); RDW 15.2 % (11.6-15.6); WHITE BLOOD COUNT 5.8 K/mm3 (4.0-10.0)
[2018-07-08 16:46] LABS: ALBUMIN 3.6 g/dl (3.4-5.0); ALK PHOS 77 U/L (45-117); ANION GAP 9 MMOL/L (8-16); BILIRUBIN,TOTAL 0.4 mg/dL (0.2-1); BLOOD UREA NITROGEN 29 mg/dL (7-18); CALCIUM 10.4 mg/dL (8.5-10.1); CHLORIDE 100 mmol/L (98-107); CO2 29 mmol/L (21-32); CREATININE 1.7 mg/dL (0.55-1.3); MAGNESIUM 2.7 mg/dL (1.8-2.4); POTASSIUM 5.6 mmol/L (3.5-5.1); SGOT/AST 25 U/L (15-37); SGPT/ALT 21 U/L (13-61); SODIUM 138 mmol/L (136-145); TOT PROT 8.1 g/dl (6.4-8.2)
[2018-07-08 16:52] LABS: GLUCOSE,RANDOM 607 mg/dL (74-106)
[2018-07-08] MEDS ORDERED: ALBUTEROL SO4 0.083% IH SOL 2.5 MG/3 ML VIAL.NEB. NEB ONE ×2 (16:55→17:46)
[2018-07-08] MEDS ORDERED: INSULIN (NOVOLOG MIX 70/30) 100 UNITS/ML MDV SQ ONE (16:56)
[2018-07-08 17:06] LABS: OSMOLALITY,SERUM 340 mosm/kg (278-305)
[2018-07-08 17:12] LABS: ACETONE SERUM POSITIVE SMALL 1+ (NEGATIVE)
[2018-07-08] MEDS ORDERED: INSULIN (NOVOLOG) ASPART 100 UNITS/ML 10ML VIAL ONE ×2 (17:45→23:25)
[2018-07-08 17:59] LABS: VENOUS PC02 44.7 mmHg (38-52); VENOUS PH 7.41 (7.32-7.42); VENOUS PO2 45.5 mmHg (28-48)
--- NOTE | 2018-07-08 19:14 | HP ---
CHIEF COMPLAINT: polydypsia, polyuria, weakness, fatigue, non compliant with diabetic medications PCP: Dr. Darion Morales HISTORY OF PRESENT ILLNESS: Patient is a 62 year old female with a significant past medical history of hypertension, insulin-dependent diabetes (non compliance reported), hyperlipidemia and CVA (left sided residual - walks with a cane). She presents to the ED for hyperglycemia of 600. As per ED signout, patient with history of non compliance with her diabetic medications. Her family is at the bedside and reports that patient is not consistently taking her insulin, often skips doses. They report that she has had difficulty controlling her blood sugars at home and has had significant polyuria and polydipsia. Patient reports her blood sugars to be in the 500s at home despite injecting herself with Novolog before meals and Tresiba. Family reports a weight loss of over 10 lbs in 1 month. They report that her back bones are more prominent and that she as problem swallowing. Patient and family were to get an EGD and colonscopy evaluation outpatient, but had difficulty making the appointment. She is from the [place], portug[place] speaking [place]. In her chickaloon language she tells me that she is profoundly fatigued, very weak. She came into the ED for further evaluation of her hyperglycemia. Family state patient is non compliant with her diabetic medications. She was also recently diagnosed with a UTI, but never completed the antibiotics. ER course was notable for: (1) hyperglycemia 600, given insulin 70/30, repeat bgm 300s. will start on sliding scale. and levemir. (2) given fluid bolus (3) Acetone-trace, anion gap 9, (4) Bun 29/1.7 (6) UA noted PAST MEDICAL HISTORY: hypertension, insulin-dependent diabetes (non compliance reported), hyperlipidemia and CVA PAST SURGICAL HISTORY: Social History: Smoking: denies Alcohol:denies Drugs: denies Family History: Allergies No Known Allergies Allergy (Verified 07/08/18 14:08) HOME MEDICATIONS: Home Medications Medication Instructions Recorded Gabapentin [Neurontin -] 400 mg PO TID #30 capsule MDD 3 01/02/18 Rosuvastatin [Crestor -] 40 mg PO HS #30 tablet MDD 1 01/02/18 Polyethylene Glycol 3350 [Miralax 17 gm PO BID bottle 05/23/18 119 gm Btl -] Insulin (Novolog) [Novolog -] 0 units SQ AC 06/16/18 Aspirin [ASA -] 81 mg PO DAILY tab.chew 06/20/18 Docusate Sodium [Colace -] 300 mg PO HS #90 capsule 06/20/18 Insulin (Levemir) [Levemir Vial] 18 units SQ 0700,2200 units 06/20/18 Metformin HCl [Glucophage] 1,000 mg PO BID #60 tablet 06/20/18 Sennosides [Senna -] 2 tab PO HS #60 tablet 06/20/18 PHYSICAL EXAMINATION Vital Signs - 24 hr 07/08/18 14:09 Temperature 98.5 F Pulse Rate 111 H Respiratory 20 Rate Blood Pressure 101/62 O2 Sat by Pulse 96 Oximetry (%) GENERAL: Awake, fatigued, ill appearing HEAD: Normal with no signs of trauma. EYES: Pupils equal, round and reactive to light, extraocular movements intact, sclera anicteric, conjunctiva clear. No lid lag. EARS, NOSE, THROAT: Ears normal, nares patent, oropharynx clear without exudates. Moist mucous membranes. NECK: Normal range of motion, supple without lymphadenopathy, JVD, or masses. LUNGS: Breath sounds equal, clear to auscultation bilaterally. No wheezes HEART: Regular rate and rhythm ABDOMEN: Soft, nontender, not distended, normoactive bowel sounds, no guarding, no rebound, no masses. No hepatomegaly or splenomegaly. MUSCULOSKELETAL: Normal range of motion at all joints. No bony deformities or tenderness. No CVA tenderness. UPPER EXTREMITIES: 2+ pulses, warm, well-perfused. No cyanosis. No clubbing. No peripheral edema. LOWER EXTREMITIES: right foot with hard calus on plantar aspect of foot, pt had surgical removal of her right foot 2nd, 3rd and 4th toe. NEUROLOGICAL: depressed affect, withdrawn PSYCHIATRIC: Cooperative. poor eye contact. depressed SKIN: reports large lipoma, or mass on her right side of her chest Laboratory Results - last 24 hr 07/08/18 07/08/18 07/08/18 16:00 16:00 16:00 WBC 5.8 RBC 4.23 Hgb 13.1 Hct 38.7 MCV 91.7 MCH 30.9 MCHC 33.7 RDW 15.2 Plt Count 178 D MPV 11.1 Absolute Neuts (auto) 4.4 Neutrophils % 75.8 D Lymphocytes % 14.4 D Monocytes % 9.0 Eosinophils % 0.4 Basophils % 0.4 Nucleated RBC % 0 VBG pH POC VBG pCO2 POC VBG pO2 Mixed VBG HCO3 Sodium 138 Potassium 5.6 H Chloride 100 Carbon Dioxide 29 Anion Gap 9 BUN 29 H Creatinine 1.7 H Creat Clearance w eGFR 30.26 POC Glucometer Random Glucose 607 H* Serum Osmolality 340 H Lactic Acid 1.6 Calcium 10.4 H Magnesium 2.7 H Total Bilirubin 0.4 AST 25 ALT 21 Alkaline Phosphatase 77 Total Protein 8.1 Albumin 3.6 Acetone, Qual Positive small 1+ H 07/08/18 07/08/18 17:42 18:45 WBC RBC Hgb Hct MCV MCH MCHC RDW Plt Count MPV Absolute Neuts (auto) Neutrophils % Lymphocytes % Monocytes % Eosinophils % Basophils % Nucleated RBC % VBG pH 7.41 POC VBG pCO2 44.7 POC VBG pO2 45.5 Mixed VBG HCO3 27.7 H Sodium Potassium Chloride Carbon Dioxide Anion Gap BUN Creatinine Creat Clearance w eGFR POC Glucometer [phone] Random Glucose Serum Osmolality Lactic Acid Calcium Magnesium Total Bilirubin AST ALT Alkaline Phosphatase Total Protein Albumin Acetone, Qual ASSESSMENT/PLAN: Patient is a 62 year old female with a significant past medical history of hypertension, insulin-dependent diabetes (non compliance reported), hyperlipidemia and CVA (left sided residual - walks with a cane). She presents to the ED for hyperglycemia of 600. She came into the ED for further evaluation of her hyperglycemia. Family state patient is non compliant with her diabetic medications. She was also recently diagnosed with a UTI, but never completed the antibiotics. Endocrine: Hyperglycemia/Diabetes mellitus No anion gap, + acetone BGMs 600 > 354 after insulin given in ED Start on Novolog SS, Levemir at bedtime Uptitrate insulin as needed consider endocrinology consult Hmga1c in a.m. Weakness/Poor performance status Patient and family report 10lb weight loss, weakness and increased depression Patient family to verify home medications, as they report patient is on now on psyche meds. Renal Acute Kidney Injury Likely Pre renal 1/2 NS @ 50cc/hr Repeat CMP. a.m. Renal ultrasound if bun/creat remain elevated : Polyuria, UA reviewed Protein +1, Ketones Urine culture pending Urinary Frequency, UC sent Monitor No signs of infection Hyperkalemia @ 5.6 Given fluid bolus, asymptomatic repeat cmp in a.m. Cardiology: Hypertension, controlled restart bp meds Monitor BP Hyperlipidemia Lipid panel in a.m Neuro: CVA, left sided weakness Walks with cane, but much weaker on asa 81mg F.E.N. Fluids: ns at 50cc/hr Electrolytes: hyperna, monitor Nutrition: diabetic diet Prophylaxis: DVT: deferred, LOS <48 hours GI: deferred Disposition . full code, Please reconcile [facility] meds. Visit type - Emergency Visit Emergency Visit: Yes Care time: The patient presented to the Emergency Department on the above date and was hospitalized for further evaluation of their emergent condition. - New Patient This patient is new to me today: Yes Date on this admission: 07/08/18 - Critical Care Critical Care patient: No
[2018-07-08] MEDS: SODIUM CHLORIDE 1,000 ML IV SCH (19:54)
[2018-07-08 20:46] LABS: URINE APPEARANCE CLEAR; URINE BILIRUBIN NEGATIVE (<2.0 mg/dL); URINE COLOR STRAW; URINE GLUCOSE (UA) 3+ (NEGATIVE); URINE KETONE 1+ (NEGATIVE); URINE LEUK ESTERASE NEGATIVE (NEGATIVE); URINE NITRITE NEGATIVE (NEGATIVE); URINE PROTEIN NEGATIVE (NEGATIVE); URINE UROBILINOGEN NEGATIVE mg/dL (0.2-1.0)
[2018-07-08] MEDS ORDERED: DOCUSATE SODIUM 100 MG CAPSULE (FP) PO ONE (23:24)
[2018-07-08] MEDS ORDERED: GABAPENTIN 100 MG CAPSULE (FP) ONE (23:25)
[2018-07-08] MEDS ORDERED: HEPARIN NA (PORCINE) 5,000 UNITS/ML 1ML VIAL ONE (23:25)
[2018-07-08] MEDS: DOCUSATE SODIUM 100 MG CAPSULE (FP) PO SCH (23:26)
[2018-07-08] MEDS: HEPARIN NA (PORCINE) 5,000 UNITS/ML 1ML VIAL SQ SCH (23:26)
[2018-07-08] MEDS: GABAPENTIN 400 MG CAPSULE (FP) PO SCH (23:34)
[2018-07-08] MEDS: INSULIN SLIDING SCALE (NOVOLOG) 1 VIAL SQ SCH (23:34)
[2018-07-08] MEDS: INSULIN (LEVEMIR) 100 UNITS/ML UNITS SQ SCH (23:35)
[2018-07-09] MEDS: ROSUVASTATIN CA 20 MG TABLET (FP) PO SCH ×2 (01:52→22:30)
[2018-07-09 03:54] LABS: URINE APPEARANCE CLEAR; URINE BILIRUBIN NEGATIVE (<2.0 mg/dL); URINE COLOR STRAW; URINE GLUCOSE (UA) 3+ (NEGATIVE); URINE KETONE 1+ (NEGATIVE); URINE LEUK ESTERASE NEGATIVE (NEGATIVE); URINE NITRITE NEGATIVE (NEGATIVE); URINE PROTEIN NEGATIVE (NEGATIVE); URINE UROBILINOGEN NEGATIVE mg/dL (0.2-1.0)
[2018-07-09 06:00] LABS: HEMATOCRIT 33.4 % (32.4-45.2); HEMOGLOBIN 10.7 GM/dL (10.7-15.3); MCH 29.4 pg (25.7-33.7); MCHC 31.9 g/dl (32.0-36.0); MEAN PLT VOLUME 10.8 fl (7.5-11.1); PLATELET COUNT 124 K/MM3 (134-434); RBC 3.63 M/mm3 (3.60-5.2); WHITE BLOOD COUNT 5.7 K/mm3 (4.0-10.0)
[2018-07-09] MEDS ORDERED: GABAPENTIN 100 MG CAPSULE (FP) ONE ×2 (06:05→14:32)
[2018-07-09] MEDS: GABAPENTIN 400 MG CAPSULE (FP) PO SCH ×3 (06:17→22:10)
[2018-07-09 06:28] LABS: CHOLESTEROL 156 mg/dL (50-200); HDL CHOLESTEROL 62 mg/dL (40-60); TRIGLYCERIDES 91 mg/dL (0-150)
[2018-07-09 06:35] LABS: ALBUMIN 2.7 g/dl (3.4-5.0); ALK PHOS 54 U/L (45-117); ANION GAP 7 MMOL/L (8-16); BILIRUBIN,TOTAL 0.3 mg/dL (0.2-1); BLOOD UREA NITROGEN 17 mg/dL (7-18); CALCIUM 8.4 mg/dL (8.5-10.1); CHLORIDE 112 mmol/L (98-107); CO2 29 mmol/L (21-32); CREATININE 1.1 mg/dL (0.55-1.3); GLUCOSE,RANDOM 210 mg/dL (74-106); PHOSPHOROUS 2.1 mg/dL (2.5-4.9); POTASSIUM 3.9 mmol/L (3.5-5.1); SGOT/AST 11 U/L (15-37); SGPT/ALT 16 U/L (13-61); SODIUM 147 mmol/L (136-145)
[2018-07-09] MEDS: INSULIN SLIDING SCALE (NOVOLOG) 1 VIAL SQ SCH ×3 (06:50→17:49)
--- NOTE | 2018-07-09 09:51 | EKG ---
Test Reason : Blood Pressure : / mmHG Vent. Rate : 087 BPM Atrial Rate : 087 BPM P-R Int : 156 ms QRS Dur : 078 ms QT Int : 352 ms P-R-T Axes : 060 002 036 degrees QTc Int : 423 ms NORMAL SINUS RHYTHM CANNOT RULE OUT ANTERIOR INFARCT (CITED ON OR BEFORE 31-DEC-2017) ABNORMAL ECG WHEN COMPARED WITH ECG OF 16-JUN-2018 23:50, T WAVE VARIATION Confirmed by MARITZA PIERSON, LAN ([id number]) on 07/09/2018 9:50:31 AM Referred By: Confirmed By:LAN SALAS MD
[2018-07-09] MEDS: HEPARIN NA (PORCINE) 5,000 UNITS/ML 1ML VIAL SQ SCH ×2 (10:11→22:10)
[2018-07-09] MEDS: ASPIRIN 81 MG CHEWABLE TABLETS PO SCH (10:11)
[2018-07-09] MEDS ORDERED: ASPIRIN 81 MG CHEWABLE TABLETS ONE (10:16)
[2018-07-09] MEDS ORDERED: HEPARIN NA (PORCINE) 5,000 UNITS/ML 1ML VIAL ONE (10:16)
--- NOTE | 2018-07-09 13:21 | PN ---
Progress Note, Physician Chief Complaint: Type 2 Diabetes Mellitus History of Present Illness: Previous notes and events reviewed awake and alert NAD c/o constipation denies dizziness, CP, or SOB - Current Medication List Current Medications: Active Medications Aspirin (Asa -) 81 mg PO DAILY [facility] Last Admin: 07/09/18 10:11 Dose: 81 mg Docusate Sodium (Colace -) 300 mg PO HS [facility] Last Admin: 07/08/18 23:26 Dose: 300 mg Gabapentin (Neurontin -) 400 mg PO TID [facility] Last Admin: 07/09/18 06:17 Dose: 400 mg Heparin Sodium (Porcine) (Heparin -) 5,000 unit SQ BID [facility] Last Admin: 07/09/18 10:11 Dose: 5,000 unit Sodium Chloride (Normal Saline -) 1,000 mls @ 100 mls/hr IV ASDIR [facility] Last Admin: 07/08/18 19:54 Dose: 100 mls/hr Insulin Aspart (Novolog Vial Sliding Scale -) 1 vial SQ [facility]; Protocol Last Admin: 07/09/18 06:50 Dose: 4 unit Insulin Detemir (Levemir Vial) 10 units SQ [facility] Last Admin: 07/08/18 23:35 Dose: 10 unit Rosuvastatin Calcium (Crestor -) 40 mg PO HS [facility] Last Admin: 07/09/18 01:52 Dose: 40 mg - Objective Vital Signs: Vital Signs Temperature 98.8 F 07/09/18 06:23 Pulse Rate 80 07/09/18 06:23 Respiratory Rate 18 07/09/18 06:23 Blood Pressure 120/68 07/09/18 06:23 O2 Sat by Pulse Oximetry (%) 100 07/09/18 06:23 Constitutional: Yes: Well Nourished, No Distress, Calm Eyes: Yes: Conjunctiva Clear Neck: Yes: Supple Cardiovascular: Yes: Regular Rate and Rhythm Respiratory: Yes: Regular, CTA Bilaterally Gastrointestinal: Yes: Normal Bowel Sounds, Soft Musculoskeletal: Yes: WNL Extremities: Yes: WNL Edema: Yes Edema: LLE: 1+, RLE: 1+ Integumentary: Yes: WNL Neurological: Yes: Alert Psychiatric: Yes: Alert, Oriented Labs: CBC, BMP 07/09/18 05:44 07/09/18 05:44 - ....Imaging EKG: Report Reviewed <Johanne Hoffmann - Last Filed: 07/09/18 13:16> - Objective Vital Signs: Vital Signs Temperature 98 F 07/12/18 08:33 Pulse Rate 103 H 07/12/18 08:33 Respiratory Rate 18 07/12/18 08:33 Blood Pressure 158/89 07/12/18 08:33 O2 Sat by Pulse Oximetry (%) 100 07/11/18 21:00 Labs: CBC, BMP 07/11/18 06:30 07/11/18 06:30 <Meghann Limon - Last Filed: 07/13/18 21:23> Problem List - Problems (1) Dehydration Code(s): E86.0 - DEHYDRATION (2) Diabetes mellitus with hyperosmolarity, with long-term current use of insulin Code(s): E11.00 - TYPE 2 DIAB W HYPROSM W/O NONKET HYPRGLY-HYPROS COMA ([facility]); Z79.4 - WATCH DIAL PRINTER (CURRENT) USE OF INSULIN (3) Non compliance with medical treatment Code(s): Z91.19 - PATIENT'S NONCOMPLIANCE W OTH MEDICAL TREATMENT AND REGIMEN (4) HTN (hypertension) Code(s): I10 - ESSENTIAL (PRIMARY) HYPERTENSION (5) History of CVA (cerebrovascular accident) Code(s): Z86.73 - PRSNL HX OF TIA (TIA), AND CEREB INFRC W/O RESID DEFICITS (6) Hyperlipidemia Code(s): E78.5 - HYPERLIPIDEMIA, UNSPECIFIED <Johanne Hoffmann - Last Filed: 07/09/18 13:16> Assessment/Plan -HgA1c 15.7-nephrology consult made -BGM q4h, ISS, levemir -BUN/Cr initially elev, repeat show wnl, will continue to monitor -cont rosuvastatin -cont ASA -diabetic diet -pending urine culture and blood culture results -colace and senna ordred for constipation -dvt ppx -fall precaution -PT <Johanne Hoffmann - Last Filed: 07/09/18 13:16> I HAVE EXAMINED THE PATIENT AND I AGREE WITH THE ABOVE NOTE <Meghann Limon - Last Filed: 07/13/18 21:23>
[2018-07-09] MEDS ORDERED: INSULIN (NOVOLOG) ASPART 100 UNITS/ML 10ML VIAL ONE ×3 (14:31→17:44)
[2018-07-09] MEDS ORDERED: Insulin (LOG) Aspart 100 UNITS/ML VIAL SQ ONE (18:23)
[2018-07-09] MEDS: SODIUM CHLORIDE 1,000 ML IV SCH (21:15)
[2018-07-09] MEDS: DOCUSATE SODIUM 100 MG CAPSULE (FP) PO SCH (22:00)
[2018-07-09] MEDS: SENNOSIDES 8.6MG TABLET (FP) PO SCH (22:10)
[2018-07-09] MEDS: INSULIN (LEVEMIR) 100 UNITS/ML UNITS SQ SCH (22:10)
[2018-07-10] MEDS ORDERED: DOCUSATE SODIUM 100 MG CAPSULE (FP) PO ONE (00:54)
[2018-07-10] MEDS ORDERED: GABAPENTIN 100 MG CAPSULE (FP) ONE ×2 (00:54→07:33)
[2018-07-10] MEDS ORDERED: HEPARIN NA (PORCINE) 5,000 UNITS/ML 1ML VIAL ONE (00:54)
[2018-07-10] MEDS ORDERED: INSULIN (LEVEMIR) 100 UNITS/ML UNITS SQ ONE (00:56)
[2018-07-10] MEDS ORDERED: INSULIN REGULAR HUMAN 100 UNITS/ML *VIAL ONE (01:21)
[2018-07-10] MEDS: INSULIN SLIDING SCALE (NOVOLOG) 1 VIAL SQ SCH ×5 (01:50→22:22)
[2018-07-10] MEDS: GABAPENTIN 400 MG CAPSULE (FP) PO SCH ×3 (06:05→22:23)
[2018-07-10 06:58] LABS: HEMATOCRIT 32.8 % (32.4-45.2); HEMOGLOBIN 10.5 GM/dL (10.7-15.3); MCH 29.6 pg (25.7-33.7); MCHC 31.9 g/dl (32.0-36.0); MEAN CELL VOLUME 92.9 fl (80-96); MEAN PLT VOLUME 10.9 fl (7.5-11.1); PLATELET COUNT 103 K/MM3 (134-434); RBC 3.53 M/mm3 (3.60-5.2); RDW 14.9 % (11.6-15.6); WHITE BLOOD COUNT 4.5 K/mm3 (4.0-10.0)
[2018-07-10] MEDS ORDERED: glipiZIDE 5 MG TABLET (FP) ONE (07:27)
[2018-07-10] MEDS ORDERED: BACLOFEN 10 MG TABLET (FP) ONE (07:28)
[2018-07-10 07:36] LABS: ALBUMIN 2.4 g/dl (3.4-5.0); ALK PHOS 53 U/L (45-117); ANION GAP 7 MMOL/L (8-16); BILIRUBIN,TOTAL 0.3 mg/dL (0.2-1); BLOOD UREA NITROGEN 18 mg/dL (7-18); CALCIUM 8.7 mg/dL (8.5-10.1); CHLORIDE 112 mmol/L (98-107); CO2 26 mmol/L (21-32); CREATININE 0.8 mg/dL (0.55-1.3); GLUCOSE,RANDOM 173 mg/dL (74-106); POTASSIUM 3.6 mmol/L (3.5-5.1); SGOT/AST 16 U/L (15-37); SGPT/ALT 15 U/L (13-61); SODIUM 145 mmol/L (136-145); TOT PROT 5.7 g/dl (6.4-8.2)
[2018-07-10] MEDS: HEPARIN NA (PORCINE) 5,000 UNITS/ML 1ML VIAL SQ SCH ×2 (10:00→22:23)
[2018-07-10] MEDS: ASPIRIN 81 MG CHEWABLE TABLETS PO SCH (10:00)
[2018-07-10] MEDS ORDERED: INSULIN (LEVEMIR) 100 UNITS/ML UNITS SQ SCH ×2 (10:52→10:57)
--- NOTE | 2018-07-10 10:58 | PN ---
Progress Note, Physician Chief Complaint: awake alert sitting in bed no distress drinking coffee admitted for uncontrolled Dm endocrine consult ordered - Current Medication List Current Medications: Active Medications Aspirin (Asa -) 81 mg PO DAILY [facility] Last Admin: 07/10/18 10:00 Dose: 81 mg Docusate Sodium (Colace -) 300 mg PO HS [facility] Last Admin: 07/09/18 22:00 Dose: 300 mg Gabapentin (Neurontin -) 400 mg PO TID [facility] Last Admin: 07/10/18 06:05 Dose: 400 mg Heparin Sodium (Porcine) (Heparin -) 5,000 unit SQ BID [facility] Last Admin: 07/10/18 10:00 Dose: 5,000 unit Sodium Chloride (Normal Saline -) 1,000 mls @ 100 mls/hr IV ASDIR [facility] Last Admin: 07/09/18 21:15 Dose: 100 mls/hr Insulin Aspart (Novolog Vial Sliding Scale -) 1 vial SQ [facility]; Protocol Last Admin: 07/10/18 07:17 Dose: 2 unit Insulin Detemir (Levemir Vial) 15 units SQ [facility] Rosuvastatin Calcium (Crestor -) 40 mg PO HS [facility] Last Admin: 07/09/18 22:30 Dose: 40 mg Senna (Senna -) 2 tab PO [facility] Last Admin: 07/09/18 22:10 Dose: 2 tab - Objective Vital Signs: Vital Signs Temperature 98 F 07/10/18 07:45 Pulse Rate 88 07/10/18 07:45 Respiratory Rate 18 07/10/18 07:45 Blood Pressure 144/83 07/10/18 07:45 O2 Sat by Pulse Oximetry (%) 100 07/10/18 07:45 Constitutional: Yes: Calm Cardiovascular: Yes: Regular Rate and Rhythm, S1, S2 Respiratory: Yes: CTA Bilaterally Gastrointestinal: Yes: Normal Bowel Sounds, Soft Edema: Yes Neurological: Yes: Alert, Oriented Labs: CBC, BMP 07/10/18 05:15 07/10/18 05:15 Problem List - Problems (1) Poorly controlled diabetes mellitus Assessment/Plan: levemir 18 units bid metformin 1000mg bid hgba1c noted 15.7 endocrine consult sliding scale Code(s): E11.65 - TYPE 2 DIABETES MELLITUS WITH HYPERGLYCEMIA (2) Acute renal failure Assessment/Plan: ivf- bun/cr much improved0 will stop ivf hyperkalemia resolved Code(s): N17.9 - ACUTE KIDNEY FAILURE, UNSPECIFIED (3) Constipation Assessment/Plan: miralax and senna.colace Code(s): K59.00 - CONSTIPATION, UNSPECIFIED (4) Leg edema Assessment/Plan: doppler of legs elevate the legs dvt ppx heparin subq Code(s): R60.0 - LOCALIZED EDEMA
[2018-07-10 16:54] VITALS: BMI 25.9
[2018-07-10] MEDS ORDERED: FLU VACCINE QUAD 60 MCG/0.5 ML (MDV 18-19) IM ONE (16:54)
[2018-07-10] MEDS: metFORMIN HCL 500 MG TABLET (FP) PO SCH (17:34)
[2018-07-10] MEDS ORDERED: ROSUVASTATIN CA 10 MG TABLET (FP) ONE (20:44)
[2018-07-10] MEDS: INSULIN (LEVEMIR) 100 UNITS/ML UNITS SQ SCH (22:22)
[2018-07-10] MEDS: ROSUVASTATIN CA 20 MG TABLET (FP) PO SCH (22:23)
[2018-07-10] MEDS: SENNOSIDES 8.6MG TABLET (FP) PO SCH (22:23)
[2018-07-10] MEDS: DOCUSATE SODIUM 100 MG CAPSULE (FP) PO SCH (22:23)
[2018-07-11] MEDS ORDERED: MELATONIN 5 MG TABLETS PO ONE (01:11)
[2018-07-11] MEDS: SODIUM CHLORIDE 1,000 ML IV SCH ×2 (06:58→22:19)
[2018-07-11] MEDS: INSULIN SLIDING SCALE (NOVOLOG) 1 VIAL SQ SCH ×4 (06:58→22:23)
[2018-07-11] MEDS: INSULIN (LEVEMIR) 100 UNITS/ML UNITS SQ SCH (06:59)
[2018-07-11] MEDS: metFORMIN HCL 500 MG TABLET (FP) PO SCH ×2 (06:59→17:04)
[2018-07-11] MEDS: GABAPENTIN 400 MG CAPSULE (FP) PO SCH ×3 (06:59→22:21)
[2018-07-11 08:06] LABS: BASO % 0.8 % (0-2.0); EOS % 2.1 % (0-4.5); HEMATOCRIT 31.2 % (32.4-45.2); HEMOGLOBIN 10.5 GM/dL (10.7-15.3); MCH 31.3 pg (25.7-33.7); MCHC 33.7 g/dl (32.0-36.0); MEAN PLT VOLUME 11.3 fl (7.5-11.1); MONO % 9.6 % (3.8-10.2); NEUT % 59.5 % (42.8-82.8); PLATELET COUNT 102 K/MM3 (134-434); RBC 3.36 M/mm3 (3.60-5.2); WHITE BLOOD COUNT 3.7 K/mm3 (4.0-10.0)
[2018-07-11 08:14] LABS: ALBUMIN 2.6 g/dl (3.4-5.0); ALK PHOS 50 U/L (45-117); ANION GAP 8 MMOL/L (8-16); BILIRUBIN,TOTAL 0.4 mg/dL (0.2-1); BLOOD UREA NITROGEN 15 mg/dL (7-18); CALCIUM 8.4 mg/dL (8.5-10.1); CHLORIDE 113 mmol/L (98-107); CO2 24 mmol/L (21-32); CREATININE 0.7 mg/dL (0.55-1.3); GLUCOSE,RANDOM 108 mg/dL (74-106); POTASSIUM 3.8 mmol/L (3.5-5.1); SGOT/AST 18 U/L (15-37); SGPT/ALT 18 U/L (13-61); SODIUM 145 mmol/L (136-145); TOT PROT 5.8 g/dl (6.4-8.2)
[2018-07-11] MEDS ORDERED: MAGNESIUM HYDROX 2400MG/30ML ORAL SUSPENSION 30 ML CUP PO PRN (09:38)
[2018-07-11] MEDS ORDERED: POLYETHYLENE GLYCOL 3350 119 GM BTL PO SCH (10:00)
[2018-07-11] MEDS ORDERED: PT OWN MED DRAWER 7, Y5N ONE ×2 (10:42→22:14)
[2018-07-11] MEDS: ASPIRIN 81 MG CHEWABLE TABLETS PO SCH (10:52)
[2018-07-11] MEDS: HEPARIN NA (PORCINE) 5,000 UNITS/ML 1ML VIAL SQ SCH ×2 (10:53→22:21)
--- NOTE | 2018-07-11 14:52 | PN ---
Progress Note, Physician Chief Complaint: Uncontrolled diabetes History of Present Illness: NAD multiple hospital visits due to non compliance of medications Have spoken to patient's daughter multiple times in the past - Current Medication List Current Medications: Active Medications Aspirin (Asa -) 81 mg PO DAILY [facility] Last Admin: 07/11/18 10:52 Dose: 81 mg Docusate Sodium (Colace -) 300 mg PO HS [facility] Last Admin: 07/10/18 22:23 Dose: 300 mg Gabapentin (Neurontin -) 400 mg PO TID [facility] Last Admin: 07/11/18 14:30 Dose: 400 mg Heparin Sodium (Porcine) (Heparin -) 5,000 unit SQ BID [facility] Last Admin: 07/11/18 10:53 Dose: 5,000 unit Sodium Chloride (Normal Saline -) 1,000 mls @ 100 mls/hr IV ASDIR [facility] Last Admin: 07/11/18 06:58 Dose: 100 mls/hr Insulin Aspart (Novolog Vial Sliding Scale -) 1 vial SQ [facility]; Protocol Last Admin: 07/11/18 11:32 Dose: 4 unit Insulin Detemir (Levemir Vial) 18 units SQ BID@0700,2200 [facility] Last Admin: 07/11/18 06:59 Dose: 18 units Magnesium Hydroxide (Milk Of Magnesia -) 30 ml PO Q8H PRN PRN Reason: INDIGESTION Metformin HCl (Glucophage -) 1,000 mg PO BID@0700,1630 [facility] Last Admin: 07/11/18 06:59 Dose: 1,000 mg Mirtazapine (Remeron -) 7.5 mg PO [facility] Polyethylene Glycol (Miralax (For Daily Use) -) 17 gm PO DAILY [facility] Last Admin: 07/11/18 10:53 Dose: 17 gm Rosuvastatin Calcium (Crestor -) 40 mg PO [facility] Last Admin: 07/10/18 22:23 Dose: 40 mg Senna (Senna -) 2 tab PO [facility] Last Admin: 07/10/18 22:23 Dose: 2 tab - Objective Vital Signs: Vital Signs Temperature 97.7 F 07/11/18 14:45 Pulse Rate 85 07/11/18 14:45 Respiratory Rate 18 07/11/18 14:45 Blood Pressure 145/81 07/11/18 14:45 O2 Sat by Pulse Oximetry (%) 100 07/10/18 23:57 Constitutional: Yes: Well Nourished, No Distress, Calm Cardiovascular: Yes: Regular Rate and Rhythm Respiratory: Yes: Regular Gastrointestinal: Yes: Normal Bowel Sounds, Soft Musculoskeletal: Yes: WNL Extremities: Yes: WNL Edema: No Peripheral Pulses WNL: Yes Neurological: Yes: Alert, Oriented Psychiatric: Yes: Alert, Oriented Labs: CBC, BMP 07/11/18 06:30 07/11/18 06:30 Problem List - Problems (1) Constipation Assessment/Plan: -Miralax po daily Code(s): K59.00 - CONSTIPATION, UNSPECIFIED (2) Non compliance with medical treatment Assessment/Plan: -multiple visits, every month for non compliance of her diabetic regimen Code(s): Z91.19 - PATIENT'S NONCOMPLIANCE W OTH MEDICAL TREATMENT AND REGIMEN (3) T2DM (type 2 diabetes mellitus) Assessment/Plan: -BGM AC HS -A1c at 15.7 -Endocrinology consult -Levemir+ novolog -Diabetic diet Code(s): E11.9 - TYPE 2 DIABETES MELLITUS WITHOUT COMPLICATIONS (4) Anemia Assessment/Plan: -Check iron profile and stool OB -Likely 2/2 to chronic disease -monitor trend -normal transfusion parameters Code(s): D64.9 - ANEMIA, UNSPECIFIED Assessment/Plan see problem list
[2018-07-11] MEDS ORDERED: diphenhydrAMINE HCL 25 MG CAPSULE (FP) PO PRN (17:43)
[2018-07-11] MEDS ORDERED: INSULIN (LEVEMIR) 100 UNITS/ML UNITS SQ SCH ×2 (22:00→23:45)
[2018-07-11] MEDS ORDERED: MIRTAZAPINE 15 MG TABLET (FP) PO SCH (22:00)
[2018-07-11] MEDS ORDERED: ROSUVASTATIN CA 10 MG TABLET (FP) ONE (22:14)
[2018-07-11] MEDS: ROSUVASTATIN CA 20 MG TABLET (FP) PO SCH (22:20)
[2018-07-11] MEDS: DOCUSATE SODIUM 100 MG CAPSULE (FP) PO SCH (22:20)
[2018-07-11] MEDS: SENNOSIDES 8.6MG TABLET (FP) PO SCH (22:22)
[2018-07-11] MEDS: POLYETHYLENE GLYCOL 3350 119 GM BTL PO SCH (22:24)
[2018-07-11] MEDS ORDERED: INSULIN (LEVEMIR) 100 UNITS/ML UNITS SQ ONE (22:34)
--- NOTE | 2018-07-11 23:42 | CONSULT ---
Consult Consult Specialty:: endocrine Referred by:: cecilio desir np Reason for Consultation:: dm2 noncompliant - History of Present Illness Chief Complaint: high sugars History of Present Illness: 62 year old female with a significant past medical history of hypertension, insulin-dependent diabetes (non compliance reported), hyperlipidemia . She presents to the ED for hyperglycemia of 600. As per Her family is at the bedside and reports that patient is not consistently taking her insulin, often skips doses. They report that she has had difficulty controlling her blood sugars has had polyuria and polydipsia. Patient reports her blood sugars to be in the 500s at home despite injections of insulin. she has constipation and difficulty sleeping. 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) Endocrine: Yes: Diabetes Mellitus - Past Surgical History Past Surgical History: Yes: , Hysterectomy, Tubal Ligation - Alcohol/Substance Use Hx Alcohol Use: No History of Substance Use: reports: None - Smoking History Smoking history: Never smoked Have you smoked in the past 12 months: No - Social History Usual Living Arrangement: Alone ADL: Independent Occupation: retired History of Recent Travel: No Home Medications - Allergies Allergies/Adverse Reactions: Allergies Allergy/AdvReac Type Severity Reaction Status Date / Time No Known Allergies Allergy Verified 07/08/18 14:08 - Home Medications Home Medications: Ambulatory Orders Gabapentin [Neurontin -] 400 mg PO TID #30 capsule MDD 3 01/02/18 Rosuvastatin [Crestor -] 40 mg PO HS #30 tablet MDD 1 01/02/18 Polyethylene Glycol 3350 [Miralax 119 gm Btl -] 17 gm PO BID bottle 05/23/18 Insulin (Novolog) [Novolog -] 0 units SQ [facility] 06/16/18 Aspirin [ASA -] 81 mg PO DAILY tab.chew 06/20/18 Docusate Sodium [Colace -] 300 mg PO HS #90 capsule 06/20/18 Insulin (Levemir) [Levemir Vial] 18 units SQ 0700,2200 units 06/20/18 Metformin HCl [Glucophage] 1,000 mg PO BID #60 tablet 06/20/18 Sennosides [Senna -] 2 tab PO HS #60 tablet 06/20/18 Family Disease History - Family Disease History Family Disease History: Diabetes: Mother (HTN) Review of Systems - Review of Systems Constitutional: reports: Lethargy, Weakness Eyes: reports: Blurred Vision HENT: reports: No Symptoms Neck: reports: No Symptoms Cardiovascular: reports: Shortness of Breath Respiratory: reports: Exercise Intolerance, SOB on Exertion Gastrointestinal: reports: Bloating, Constipation, Nausea Genitourinary: reports: Frequency Breasts: reports: No Symptoms Reported Musculoskeletal: reports: Extremity Pain, Joint Swelling, Muscle Cramps, Muscle Weakness Neurological: reports: Numbness, Weakness Endocrine: reports: Unexplained Weight Loss Physical Exam Vital Signs: Vital Signs Temperature 98.2 F 07/11/18 22:00 Pulse Rate 91 H 07/11/18 22:00 Respiratory Rate 20 07/11/18 22:00 Blood Pressure 142/81 07/11/18 22:00 O2 Sat by Pulse Oximetry (%) 100 07/10/18 23:57 Constitutional: Yes: Anxious Eyes: Yes: EOM Intact HENT: Yes: Normocephalic Neck: Yes: Trachea Midline Cardiovascular: Yes: Regular Rate and Rhythm Respiratory: Yes: CTA Bilaterally Gastrointestinal: Yes: Normal Bowel Sounds, Abdomen, Obese ...Rectal Exam: Yes: Deferred Renal/: Yes: WNL Musculoskeletal: Yes: WNL Edema: No Neurological: Yes: Alert, Oriented Labs: CBC, BMP 07/11/18 06:30 07/11/18 06:30 Problem List - Problems (1) Constipation Code(s): K59.00 - CONSTIPATION, UNSPECIFIED (2) Dehydration Code(s): E86.0 - DEHYDRATION (3) Diabetes mellitus with hyperosmolarity, with long-term current use of insulin Code(s): E11.00 - TYPE 2 DIAB W HYPROSM W/O NONKET HYPRGLY-HYPROS COMA ([facility]); Z79.4 - INTERMEDIATE (CURRENT) USE OF INSULIN (4) Leg edema Code(s): R60.0 - LOCALIZED EDEMA (5) Non compliance with medical treatment Code(s): Z91.19 - PATIENT'S NONCOMPLIANCE W OTH MEDICAL TREATMENT AND REGIMEN (6) Poorly controlled diabetes mellitus Code(s): E11.65 - TYPE 2 DIABETES MELLITUS WITH HYPERGLYCEMIA (7) Right foot pain Code(s): M79.671 - PAIN IN RIGHT FOOT (8) T2DM (type 2 diabetes mellitus) Code(s): E11.9 - TYPE 2 DIABETES MELLITUS WITHOUT COMPLICATIONS Assessment/Plan Current Active Problems Constipation (Acute) Dehydration (Acute) Diabetes mellitus with hyperosmolarity, with long-term current use of insulin ( Acute) Leg edema (Acute) Non compliance with medical treatment (Acute) Poorly controlled diabetes mellitus (Acute) Right foot pain (Acute) T2DM (type 2 diabetes mellitus) (Acute) Type 2 diabetes mellitus with hyperglycemia (Acute) Abnormal Lab Results 07/11/18 07/11/18 06:30 06:30 WBC 3.7 L RBC 3.36 L Hgb 10.5 L Hct 31.2 L Plt Count 102 L MPV 11.3 H Chloride 113 H Random Glucose 108 H Calcium 8.4 L Total Protein 5.8 L Albumin 2.6 L Laboratory Results - last 24 hr 07/11/18 07/11/18 06:30 06:30 WBC 3.7 L RBC 3.36 L Hgb 10.5 L Hct 31.2 L MCV 93.0 MCH 31.3 MCHC 33.7 RDW 15.0 Plt Count 102 L MPV 11.3 H Absolute Neuts (auto) 2.2 Neutrophils % 59.5 D Lymphocytes % 28.0 D Monocytes % 9.6 Eosinophils % 2.1 D Basophils % 0.8 Nucleated RBC % 0 Sodium 145 Potassium 3.8 Chloride 113 H Carbon Dioxide 24 Anion Gap 8 BUN 15 Creatinine 0.7 Creat Clearance w eGFR > 60 Random Glucose 108 H Calcium 8.4 L Ferritin 39.2 Total Bilirubin 0.4 AST 18 ALT 18 Alkaline Phosphatase 50 Total Protein 5.8 L Albumin 2.6 L plan: diet consult nutrtition family support gi consult levemir 25 units am levemir 20 units hs bgm qid novolog insulin
[2018-07-12] MEDS: INSULIN SLIDING SCALE (NOVOLOG) 1 VIAL SQ SCH ×2 (06:58→11:49)
[2018-07-12] MEDS: GABAPENTIN 400 MG CAPSULE (FP) PO SCH ×2 (06:59→14:12)
[2018-07-12] MEDS ORDERED: INSULIN (LEVEMIR) 100 UNITS/ML UNITS SQ SCH ×2 (07:00)
[2018-07-12] MEDS: metFORMIN HCL 500 MG TABLET (FP) PO SCH (07:00)
[2018-07-12 08:33] VITALS: BP 158/89; PULSE 103; TEMP 98
--- NOTE | 2018-07-12 09:35 | CON.PSY ---
Psychiatry Consult Chief Complaint: Spoke to staff , Patient he is non compliant with DM Management and gets Hospitalized frequently. Patient has no documented Mental illness. On [id number] 7.5mg po hs.. - Previous Psychiatric Treatment Outpatient: None Inpatient: None - Previous Substance Abuse Treatment Outpatient: None Inpatient: None - Current Medications Current Medications: Active Medications Aspirin (Asa -) 81 mg PO DAILY [facility] Last Admin: 07/11/18 10:52 Dose: 81 mg Diphenhydramine HCl (Benadryl -) 25 mg PO HS PRN PRN Reason: INSOMNIA Last Admin: 07/11/18 22:35 Dose: 25 mg Docusate Sodium (Colace -) 300 mg PO HS [facility] Last Admin: 07/11/18 22:20 Dose: 300 mg Gabapentin (Neurontin -) 400 mg PO TID [facility] Last Admin: 07/12/18 06:59 Dose: 400 mg Heparin Sodium (Porcine) (Heparin -) 5,000 unit SQ BID [facility] Last Admin: 07/11/18 22:21 Dose: 5,000 unit Sodium Chloride (Normal Saline -) 1,000 mls @ 100 mls/hr IV ASDIR [facility] Last Admin: 07/11/18 22:19 Dose: 100 mls/hr Insulin Aspart (Novolog Vial Sliding Scale -) 1 vial SQ ACHS [facility]; Protocol Last Admin: 07/12/18 06:58 Dose: Not Given Insulin Detemir (Levemir Vial) 25 units SQ AM [facility] Last Admin: 07/12/18 06:59 Dose: Not Given Insulin Detemir (Levemir Vial) 20 units SQ HS [facility] Magnesium Hydroxide (Milk Of Magnesia -) 30 ml PO Q8H PRN PRN Reason: INDIGESTION Metformin HCl (Glucophage -) 1,000 mg PO BID@0700,1630 [facility] Last Admin: 07/12/18 07:00 Dose: Not Given Mirtazapine (Remeron -) 7.5 mg PO HS [facility] Last Admin: 07/11/18 22:22 Dose: 7.5 mg Polyethylene Glycol (Miralax (For Daily Use) -) 17 gm PO BID [facility] Last Admin: 07/11/18 22:24 Dose: 17 gm Rosuvastatin Calcium (Crestor -) 40 mg PO HS [facility] Last Admin: 07/11/18 22:20 Dose: 40 mg Senna (Senna -) 2 tab PO HS [facility] Last Admin: 07/11/18 22:22 Dose: 2 tab - Allergies Allergies: Allergies Allergy/AdvReac Type Severity Reaction Status Date / Time No Known Allergies Allergy Verified 07/08/18 14:08 - Current Living Status Usual Living Arrangement: Alone - Current Mental Status Evaluation Appearance: Well Groomed Attitude: Cooperative - Affect Affect: Full Range Appropriateness: Appropriate to Content - Mood Mood: Euthymic - Speech/Language Expressive: Coherent - Psychomotor Activity Psychomotor Activity: Normal - Thought Process Thought Process: Intact - Thought Content Hallucinations: Absent Delusions: Absent - Self Perception Self Perception: No Impairment - Cognition Attention: Alert Orientation: Time Memory, Immediate Recall: Intact Memory, Short Term: 3/3 Memory, Remote with Promptin/3 - Concentration Serial Sevens Intact: No Simple Calculations Intact: Yes - Abstraction Proverb Interpretation: Intact Judgement: Minimally Impaired - Insight Insight: Intact - Impulse Control Impulse Control: Minimally Impaired - Suicidal Ideation Suicidal Ideation: No - Homicidal Ideation Homicidal Ideation: No Assessment/Plan 1) No acute Mental illness. 2) patient has the mental capacity at this time.
[2018-07-12] MEDS: ASPIRIN 81 MG CHEWABLE TABLETS PO SCH (10:27)
[2018-07-12] MEDS: HEPARIN NA (PORCINE) 5,000 UNITS/ML 1ML VIAL SQ SCH (10:27)
[2018-07-12] MEDS: POLYETHYLENE GLYCOL 3350 119 GM BTL PO SCH (10:29)
[2018-07-12] MEDS: SODIUM CHLORIDE 1,000 ML IV SCH (10:34)
--- NOTE | 2018-07-12 11:05 | PN ---
Progress Note, Physician Chief Complaint: Uncontrolled diabetes History of Present Illness: NAD multiple hospital visits due to non compliance of medications Have spoken to patient's daughter multiple times in the past Lacks insight to her medical Seen by Psych and endocrinology - Current Medication List Current Medications: Active Medications Aspirin (Asa -) 81 mg PO DAILY [facility] Last Admin: 07/12/18 10:27 Dose: 81 mg Diphenhydramine HCl (Benadryl -) 25 mg PO HS PRN PRN Reason: INSOMNIA Last Admin: 07/11/18 22:35 Dose: 25 mg Docusate Sodium (Colace -) 300 mg PO HS [facility] Last Admin: 07/11/18 22:20 Dose: 300 mg Gabapentin (Neurontin -) 400 mg PO TID [facility] Last Admin: 07/12/18 06:59 Dose: 400 mg Heparin Sodium (Porcine) (Heparin -) 5,000 unit SQ BID [facility] Last Admin: 07/12/18 10:27 Dose: 5,000 unit Sodium Chloride (Normal Saline -) 1,000 mls @ 100 mls/hr IV ASDIR [facility] Last Admin: 07/12/18 10:34 Dose: 100 mls/hr Insulin Aspart (Novolog Vial Sliding Scale -) 1 vial SQ [facility]; Protocol Last Admin: 07/12/18 06:58 Dose: Not Given Insulin Detemir (Levemir Vial) 25 units SQ AM [facility] Last Admin: 07/12/18 06:59 Dose: Not Given Insulin Detemir (Levemir Vial) 20 units SQ HS [facility] Magnesium Hydroxide (Milk Of Magnesia -) 30 ml PO Q8H PRN PRN Reason: INDIGESTION Metformin HCl (Glucophage -) 1,000 mg PO BID@0700,1630 [facility] Last Admin: 07/12/18 07:00 Dose: Not Given Mirtazapine (Remeron -) 7.5 mg PO [facility] Last Admin: 07/11/18 22:22 Dose: 7.5 mg Polyethylene Glycol (Miralax (For Daily Use) -) 17 gm PO BID [facility] Last Admin: 07/12/18 10:29 Dose: 17 gm Rosuvastatin Calcium (Crestor -) 40 mg PO [facility] Last Admin: 07/11/18 22:20 Dose: 40 mg Senna (Senna -) 2 tab PO [facility] Last Admin: 01/16/19 22:22 Dose: 2 tab - Objective Vital Signs: Vital Signs Temperature 98 F 07/12/18 08:33 Pulse Rate 103 H 07/12/18 08:33 Respiratory Rate 18 07/12/18 08:33 Blood Pressure 158/89 07/12/18 08:33 O2 Sat by Pulse Oximetry (%) 100 07/11/18 21:00 Constitutional: Yes: Well Nourished, No Distress, Calm Cardiovascular: Yes: Regular Rate and Rhythm Respiratory: Yes: Regular Gastrointestinal: Yes: Normal Bowel Sounds, Soft Musculoskeletal: Yes: WNL Extremities: Yes: WNL Edema: No Peripheral Pulses WNL: Yes Neurological: Yes: Alert, Oriented Psychiatric: Yes: Alert, Oriented Labs: CBC, BMP 07/11/18 06:30 07/11/18 06:30 Problem List - Problems (1) Constipation Assessment/Plan: -Miralax po BID Code(s): K59.00 - CONSTIPATION, UNSPECIFIED (2) Non compliance with medical treatment Assessment/Plan: -multiple visits, every month for non compliance of her diabetic regimen -Spoke to daughter Venancio in detail about medication adherence Code(s): Z91.19 - PATIENT'S NONCOMPLIANCE W OTH MEDICAL TREATMENT AND REGIMEN (3) T2DM (type 2 diabetes mellitus) Assessment/Plan: -BGM AC HS -A1c at 15.7 -Endocrinology consult -Levemir+ novolog -Diabetic diet -Already on metformin 1000 mg po BID -Start Januvia 100 mg po daily Code(s): E11.9 - TYPE 2 DIABETES MELLITUS WITHOUT COMPLICATIONS (4) Anemia Assessment/Plan: -Check iron profile and stool OB -Likely 2/2 to chronic disease -monitor trend -normal transfusion parameters Code(s): D64.9 - ANEMIA, UNSPECIFIED Assessment/Plan see problem list pt self ambulatory
--- NOTE | 2018-07-12 11:28 | DS ---
Physical Examination Vital Signs: Vital Signs Temperature 98 F 07/12/18 08:33 Pulse Rate 103 H 07/12/18 08:33 Respiratory Rate 18 07/12/18 08:33 Blood Pressure 158/89 07/12/18 08:33 O2 Sat by Pulse Oximetry (%) 100 07/11/18 21:00 Findings/Remarks: Patient is a 62 year old female with a significant past medical history of hypertension, insulin-dependent diabetes (non compliance reported), hyperlipidemia and CVA (left sided residual - walks with a cane). She presents to the ED for hyperglycemia of 600. As per ED signout, patient with history of non compliance with her diabetic medications. Her family is at the bedside and reports that patient is not consistently taking her insulin, often skips doses. They report that she has had difficulty controlling her blood sugars at home and has had significant polyuria and polydipsia. Patient reports her blood sugars to be in the 500s at home despite injecting herself with Novolog before meals and Tresiba. Family reports a weight loss of over 10 lbs in 1 month. They report that her back bones are more prominent and that she as problem swallowing. Patient and family were to get an EGD and colonscopy evaluation outpatient, but had difficulty making the appointment. She is from [place], [place] speaking [place]. In her [place] language she tells me that she is profoundly fatigued, very weak. She came into the ED for further evaluation of her hyperglycemia. Family state patient is non compliant with her diabetic medications. She was also recently diagnosed with a UTI, but never completed the antibiotics. Constitutional: Yes: Well Nourished, No Distress, Calm Cardiovascular: Yes: Regular Rate and Rhythm Respiratory: Yes: Regular Gastrointestinal: Yes: Normal Bowel Sounds, Soft Musculoskeletal: Yes: WNL Extremities: Yes: WNL Edema: No Peripheral Pulses WNL: Yes Neurological: Yes: Alert, Oriented Psychiatric: Yes: Alert, Oriented Labs: CBC, BMP 07/11/18 06:30 07/11/18 06:30 Discharge Summary Reason For Visit: TYPE 2 DIABETES MELLITUS WITH HYPERGLYCEMIA Current Active Problems Constipation (Acute) Dehydration (Acute) Diabetes mellitus with hyperosmolarity, with long-term current use of insulin ( Acute) Leg edema (Acute) Non compliance with medical treatment (Acute) Poorly controlled diabetes mellitus (Acute) Right foot pain (Acute) T2DM (type 2 diabetes mellitus) (Acute) Type 2 diabetes mellitus with hyperglycemia (Acute) Hospital Course: Laboratory Last Values WBC 3.7 K/mm3 (4.0-10.0) L 07/11/18 06:30 RBC 3.36 M/mm3 (3.60-5.2) L 07/11/18 06:30 Hgb 10.5 GM/dL (10.7-15.3) L 07/11/18 06:30 Hct 31.2 % (32.4-45.2) L 07/11/18 06:30 MCV 93.0 fl (80-96) 07/11/18 06:30 MCH 31.3 pg (25.7-33.7) 07/11/18 06:30 MCHC 33.7 g/dl (32.0-36.0) 07/11/18 06:30 RDW 15.0 % (11.6-15.6) 07/11/18 06:30 Plt Count 102 K/MM3 (134-434) L 07/11/18 06:30 MPV 11.3 fl (7.5-11.1) H 07/11/18 06:30 Absolute Neuts (auto) 2.2 K/mm3 (1.5-8.0) 07/11/18 06:30 Neutrophils % 59.5 % (42.8-82.8) D 07/11/18 06:30 Lymphocytes % 28.0 % (8-40) D 07/11/18 06:30 Monocytes % 9.6 % (3.8-10.2) 07/11/18 06:30 Eosinophils % 2.1 % (0-4.5) D 07/11/18 06:30 Basophils % 0.8 % (0-2.0) 07/11/18 06:30 Nucleated RBC % 0 % (0-0) 07/11/18 06:30 VBG pH 7.41 (7.32-7.42) 07/08/18 17:42 POC VBG pCO2 44.7 mmHg (38-52) 07/08/18 17:42 POC VBG pO2 45.5 mmHg (28-48) 07/08/18 17:42 Mixed VBG HCO3 27.7 meq/L (19-25) H 07/08/18 17:42 Sodium 145 mmol/L (136-145) 07/11/18 06:30 Potassium 3.8 mmol/L (3.5-5.1) 07/11/18 06:30 Chloride 113 mmol/L (98-107) H 07/11/18 06:30 Carbon Dioxide 24 mmol/L (21-32) 07/11/18 06:30 Anion Gap 8 MMOL/L (8-16) 07/11/18 06:30 BUN 15 mg/dL (7-18) 07/11/18 06:30 Creatinine 0.7 mg/dL (0.55-1.3) 07/11/18 06:30 Creat Clearance w eGFR > 60 (>60) 07/11/18 06:30 POC Glucometer [id number] UNITS (80-120) 07/10/18 01:14 Random Glucose 108 mg/dL (74-106) H 07/11/18 06:30 Hemoglobin A1c % 15.7 % (4.2-6.3) H 07/09/18 05:44 Serum Osmolality 340 mosm/kg (278-305) H 07/08/18 16:00 Lactic Acid 1.6 mmol/L (0.4-2.0) 07/08/18 16:00 Calcium 8.4 mg/dL (8.5-10.1) L 07/11/18 06:30 Phosphorus 2.1 mg/dL (2.5-4.9) L 07/09/18 05:44 Magnesium 2.0 mg/dL (1.8-2.4) 07/09/18 05:44 Ferritin 39.2 ng/ml (8-388) 07/11/18 06:30 Total Bilirubin 0.4 mg/dL (0.2-1) 07/11/18 06:30 AST 18 U/L (15-37) 07/11/18 06:30 ALT 18 U/L (13-61) 07/11/18 06:30 Alkaline Phosphatase 50 U/L (45-117) 07/11/18 06:30 Total Protein 5.8 g/dl (6.4-8.2) L 07/11/18 06:30 Albumin 2.6 g/dl (3.4-5.0) L 07/11/18 06:30 Triglycerides 91 mg/dL (0-150) 07/09/18 05:44 Cholesterol 156 mg/dL (50-200) 07/09/18 05:44 Total LDL Cholesterol 77 mg/dL (5-100) 07/09/18 05:44 HDL Cholesterol 62 mg/dL (40-60) H 07/09/18 05:44 Urine Color Straw 07/09/18 03:40 Urine Appearance Clear 07/09/18 03:40 Urine pH 6.0 (5.0-8.0) 07/09/18 03:40 Ur Specific Mccammon 1.022 (1.010-1.035) 07/09/18 03:40 Urine Protein Negative (NEGATIVE) 07/09/18 03:40 Urine Glucose (UA) 3+ (NEGATIVE) H 07/09/18 03:40 Urine Ketones 1+ (NEGATIVE) H 07/09/18 03:40 Urine Blood Negative (NEGATIVE) 07/09/18 03:40 Urine Nitrite Negative (NEGATIVE) 07/09/18 03:40 Urine Bilirubin Negative (<2.0 mg/dL) 07/09/18 03:40 Urine Urobilinogen Negative mg/dL (0.2-1.0) 07/09/18 03:40 Ur Leukocyte Esterase Negative (NEGATIVE) 07/09/18 03:40 U Random Total Protein 9.8 mg/dl (0-11.9) 07/08/18 20:29 Ur Random Sodium 83 MMOL/L (40-220) 07/08/18 20:29 Urine Creatinine 26.0 mg/dL (30-50) L 07/08/18 20:29 Acetone, Qual Positive small 1+ (NEGATIVE) H 07/08/18 16:00 Microbiology 07/08/18 16:00 Blood - Peripheral Venous Blood Culture - Preliminary NO GROWTH OBTAINED AFTER 72 HOURS, INCUBATION TO CONTINUE FOR 2 DAYS. 07/08/18 16:00 Blood - Peripheral Venous Blood Culture - Preliminary NO GROWTH OBTAINED AFTER 72 HOURS, INCUBATION TO CONTINUE FOR 2 DAYS. 07/08/18 19:25 Urine - Urine Clean Catch Urine Culture - Final NO GROWTH OBTAINED 07/08/18 20:29 Urine - Urine Clean Catch Urine Culture - Final Current Medications Aspirin (Asa -) 81 mg PO DAILY [facility] Last Admin: 07/12/18 10:27 Dose: 81 mg Diphenhydramine HCl (Benadryl -) 25 mg PO HS PRN PRN Reason: INSOMNIA Last Admin: 07/11/18 22:35 Dose: 25 mg Docusate Sodium (Colace -) 300 mg PO HS [facility] Last Admin: 07/11/18 22:20 Dose: 300 mg Gabapentin (Neurontin -) 400 mg PO TID [facility] Last Admin: 07/12/18 06:59 Dose: 400 mg Heparin Sodium (Porcine) (Heparin -) 5,000 unit SQ BID [facility] Last Admin: 07/12/18 10:27 Dose: 5,000 unit Sodium Chloride (Normal Saline -) 1,000 mls @ 100 mls/hr IV ASDIR [facility] Last Admin: 07/12/18 10:34 Dose: 100 mls/hr Insulin Aspart (Novolog Vial Sliding Scale -) 1 vial SQ ACHS [facility]; Protocol Last Admin: 07/12/18 06:58 Dose: Not Given Insulin Detemir (Levemir Vial) 25 units SQ AM [facility] Last Admin: 07/12/18 06:59 Dose: Not Given Insulin Detemir (Levemir Vial) 20 units SQ [facility] Magnesium Hydroxide (Milk Of Magnesia -) 30 ml PO Q8H PRN PRN Reason: INDIGESTION Metformin HCl (Glucophage -) 1,000 mg PO BID@0700,1630 [facility] Last Admin: 07/12/18 07:00 Dose: Not Given Mirtazapine (Remeron -) 7.5 mg PO HS [facility] Last Admin: 07/11/18 22:22 Dose: 7.5 mg Polyethylene Glycol (Miralax (For Daily Use) -) 17 gm PO BID [facility] Last Admin: 07/12/18 10:29 Dose: 17 gm Rosuvastatin Calcium (Crestor -) 40 mg PO HS [facility] Last Admin: 07/11/18 22:20 Dose: 40 mg Senna (Senna -) 2 tab PO [facility] Last Admin: 07/11/18 22:22 Dose: 2 tab Condition: Stable - Instructions Diet, Activity, Other Instructions: Take following medications: Aspirin (Asa -) 81 mg PO DAILY Docusate Sodium (Colace -) 300 mg at bedtime Gabapentin (Neurontin -) 400 mg PO 3 x day Insulin Aspart (Novolog Vial Sliding Scale -) 1 vial SQ as per sliding scale before meals Insulin Detemir (Levemir Vial) 30 units SQ AM Metformin HCl (Glucophage -) 1,000 mg 2 x day Mirtazapine (Remeron -) 7.5 mg at bedtime Polyethylene Glycol (Miralax (For Daily Use) -) 17 gm 2 x day Rosuvastatin Calcium (Crestor -) 40 mg at bedtime Senna (Senna -) 2 tab at bedtime Januvia 100 mg 1 tab daily in AM Referrals: Darion Morales [Primary Care Provider] - Disposition: VNS/HOME HEALTH CARE - Home Medications Comprehensive Discharge Medication List: Ambulatory Orders Gabapentin [Neurontin -] 400 mg PO TID #30 capsule MDD 3 01/02/18 Rosuvastatin [Crestor -] 40 mg PO HS #30 tablet MDD 1 01/02/18 Polyethylene Glycol 3350 [Miralax 119 gm Btl -] 17 gm PO BID bottle 05/23/18 Insulin (Novolog) [Novolog -] 0 units SQ AC 06/16/18 Aspirin [ASA -] 81 mg PO DAILY tab.chew 06/20/18 Docusate Sodium [Colace -] 300 mg PO HS #90 capsule 06/20/18 Metformin HCl [Glucophage] 1,000 mg PO BID #60 tablet 06/20/18 Sennosides [Senna -] 2 tab PO HS #60 tablet 06/20/18 Insulin (Levemir) [Levemir Vial] 30 units SQ DAILY #1 vial 07/12/18 Mirtazapine [Remeron -] 7.5 mg PO HS #30 tablet 07/12/18 Polyethylene Glycol 3350 [Miralax 119 gm Btl -] 17 gm PO BID #2 bottle 07/12/18
[2018-07-13 04:17] LABS: SERUM IRON SATURATION 22 % (15-55); TOTAL IRON BINDING CAPACITY 224 ug/dL (250-450); UIBC 175 ug/dL (118-369)
== END 2018-07-12 15:59 | disposition home health service (06) | DRG 420 ==
LOC: JER 13:55 → JERBED 18:45 → J8W 07-10 16:31
PROVIDERS: ADMIT Family Medicine; ATTEND Family Medicine
DX: E11.00 Type 2 diabetes mellitus with hyperosmolarity without nonketotic hyperglycemic-hyperosmolar coma (NKHHC) (principal); I10 Essential (primary) hypertension; F32.9 Major depressive disorder, single episode, unspecified; F20.9 Schizophrenia, unspecified; E11.40 Type 2 diabetes mellitus with diabetic neuropathy, unspecified; E78.00 Pure hypercholesterolemia, unspecified; E86.0 Dehydration; N17.9 Acute kidney failure, unspecified; E87.5 Hyperkalemia; R35.0 Frequency of micturition; K59.00 Constipation, unspecified; D64.9 Anemia, unspecified; M79.671 Pain in right foot; R60.0 Localized edema; I69.354 Hemiplegia and hemiparesis following cerebral infarction affecting left non-dominant side; Z86.73 Personal history of transient ischemic attack (TIA), and cerebral infarction without residual deficits; Z91.14 Patient's other noncompliance with medication regimen; Z79.4 Long term (current) use of insulin; Z89.422 Acquired absence of other left toe(s); H53.8 Other visual disturbances
CPT/HCPCS: 36415; 70450-TC; 71045-TC-FY; 80053; 80061; 81003; 82009; 82570; 82728; 82803; 82962; 83036; 83540; 83550; 83605; 83721; 83735; 83930; 84100; 84156; 84300; 85025; 85027; 87040; 87086; 90688; 93005; 93010; 93970-TC; 97116-GP; 97161-GP; 99285-25; G0008; J1644; J7030

== ENCOUNTER 2018-07-24 12:34 | Observation (INO) | payer OTHER ==
--- NOTE | 2018-07-24 13:46 | PDOC ---
History of Present Illness - General History Source: Patient Exam Limitations: No Limitations - History of Present Illness Initial Comments: 07/24/18 14:19 62 yo F with a hx of HTN, IDDM (significant hx of medication non compliance), HLD, CVA (left sided residual weakness uses cane for ambulation) presents to the emergency department with hyperglycemia from her PMD's office (Dr. Morales) with a reported BG of 600. Per EMS, they gave 10 units of insulin and repeat FSBG was 593. Per the daughter, she has been having polyuria and polydipsia " for a long time" with dysuria for the past 1 week with hematuria. Per the patient, she misses using her insulin and forgets to take it. Per the patient, she endorses the following symptoms: dizziness, tremors, and rapid breathing. Denies the following: fevers, chills, recent sick contacts, N/V/D, chest pain, and SOB. PMD: Darion Morales Allergies: NKDA Social: Denies tobacco, alcohol, and substance abuse. <Brigido Kerr - Last Filed: 07/24/18 14:19> <Kristin Smith - Last Filed: 07/27/18 07:21> - General Chief Complaint: Blood Sugar Problem Stated Complaint: HIGH BLOOD SUGAR Past History - Past Medical History Asthma: No CVA: Yes COPD: No Diabetes: Yes GI Disorders: Yes (CONSTIPATION) Disorders: Yes (recurrent UTIs) HTN: Yes Hypercholesterolemia: Yes Psychiatric Problems: Yes (Depression) Thyroid Disease: No - Surgical History Cardiac Surgery: No Gastric Stapling: No GI Surgery: No Lung Surgery: No Neurologic Surgery: No - Immunization History Immunization Up to Date: No - Suicide/Smoking/Psychosocial Hx Smoking History: Never smoked Have you smoked in the past 12 months: No Information on smoking cessation initiated: No Hx Alcohol Use: No Drug/Substance Use Hx: No Substance Use Type: None Hx Substance Use Treatment: No <Brigido Kerr - Last Filed: 07/24/18 14:19> <Kristin Smith - Last Filed: 07/27/18 07:21> - Past Medical History Allergies/Adverse Reactions: Allergies Allergy/AdvReac Type Severity Reaction Status Date / Time No Known Allergies Allergy Verified 07/24/18 12:57 Home Medications: Ambulatory Orders Gabapentin [Neurontin -] 400 mg PO TID #30 capsule MDD 3 01/02/18 Rosuvastatin [Crestor -] 40 mg PO HS #30 tablet MDD 1 01/02/18 Polyethylene Glycol 3350 [Miralax 119 gm Btl -] 17 gm PO BID bottle 05/23/18 Insulin (Novolog) [Novolog -] 0 units SQ AC 06/16/18 Aspirin [ASA -] 81 mg PO DAILY tab.chew 06/20/18 Docusate Sodium [Colace -] 300 mg PO HS #90 capsule 06/20/18 Metformin HCl [Glucophage] 1,000 mg PO BID #60 tablet 06/20/18 Sennosides [Senna -] 2 tab PO HS #60 tablet 06/20/18 Insulin (Levemir) [Levemir Vial] 30 units SQ DAILY #1 vial 07/12/18 Mirtazapine [Remeron -] 7.5 mg PO HS #30 tablet 07/12/18 Polyethylene Glycol 3350 [Miralax 119 gm Btl -] 17 gm PO BID #2 bottle 07/12/18 Sitagliptin Phosphate [Januvia] 100 mg PO DAILY #30 tablet 07/12/18 Review of Systems - Review of Systems Able to Perform ROS?: Yes Is the patient limited Monegasque proficient: No Constitutional: Yes: Weakness. No: Chills, Diaphoresis, Fever HEENTM: No: Eye Pain, Recent change in vision, Ear Pain, Nose Pain, Throat Pain , Mouth Pain Respiratory: No: Cough, Shortness of Breath, SOB with Exertion Cardiac (ROS): No: Chest Pain, Lightheadedness, Palpitations, Syncope, Chest Tightness ABD/GI: No: Constipated, Diarrhea, Nausea, Rectal Bleeding, Vomiting, Tarry Stools : Yes: Dysuria, Frequency, Hematuria. No: Urgency Musculoskeletal: No: Back Pain, Joint Pain, Neck Pain Integumentary: No: Bruising, Flushing, Lesions, Lumps Neurological: Yes: Tremors, Dizziness. No: Headache, Numbness, Tingling, Ataxia Psychiatric: No: Change in Appetite Endocrine: No: Unexplained Weight Loss Hematologic/Lymphatic: No: Anemia <Brigido Kerr - Last Filed: 07/24/18 14:19> *Physical Exam - Vital Signs Last Vital Signs Temp Pulse Resp BP Pulse Ox 98.3 F 112 H 17 126/66 100 07/24/18 12:50 07/24/18 12:50 07/24/18 12:50 07/24/18 12:50 07/24/18 12:50 - Physical Exam General Appearance: Yes: Nourished, Appropriately Dressed, Apparent Distress. No: Intoxicated HEENT: positive: EOMI, MANDI, Normal Voice, Pharynx Normal, Hearing Grossly Normal. negative: Pale Conjunctivae, Scleral Icterus (R), Scleral Icterus (L), Muffled/Hoarse voice, Pharyngeal Erythema, Tonsillar Exudate, Tonsillar Erythema , Nasal Congestion, Rhinorrhea, Sinus Tenderness, Excessive drooling Neck: positive: Trachea midline, Supple. negative: Tender, Lymphadenopathy (R) , Lymphadenopathy (L), Tender lateral, Tender midline Respiratory/Chest: positive: Lungs Clear, Normal Breath Sounds. negative: Chest Tender, Respiratory Distress, Accessory Muscle Use, Crackles, Rales, Rhonchi, Stridor, Wheezing Cardiovascular: positive: Regular Rhythm, S1, S2, Tachycardia. negative: Systolic Murmur Gastrointestinal/Abdominal: positive: Normal Bowel Sounds, Tender (epigastric), Flat, Soft. negative: Distended, Guarding, Rebound, Tenderness Lymphatic: negative: Adenopathy Musculoskeletal: positive: Normal Inspection. negative: CVA Tenderness, Vertebral Tenderness Extremity: positive: Normal Capillary Refill, Normal Inspection, Normal Range of Motion. negative: Tender Integumentary: positive: Normal Color, Dry, Warm. negative: Diaphoresis, Moist , Hives, Petechiae, Rash Neurologic: positive: cloud systems architect II-XII NML intact, Fully Oriented, Alert, Normal Mood/ Affect, Normal Response, Motor Strength 5/5. negative: EOM Palsy, Facial Droop , Sensory Deficit <Brigido Kerr - Last Filed: 07/24/18 14:19> - Vital Signs Last Vital Signs Temp Pulse Resp BP Pulse Ox 98.3 F 112 H 17 126/66 100 07/24/18 12:50 07/24/18 12:50 07/24/18 12:50 07/24/18 12:50 07/24/18 12:50 <Kristin Smith - Last Filed: 07/27/18 07:21> Moderate Sedation - Procedure Monitoring Vital Signs: Procedure Monitoring Vital Signs Temperature 98.3 F 07/24/18 12:50 Pulse Rate 112 H 07/24/18 12:50 Respiratory Rate 17 07/24/18 12:50 Blood Pressure 126/66 07/24/18 12:50 O2 Sat by Pulse Oximetry (%) 100 07/24/18 12:50 <Brigido Kerr - Last Filed: 07/24/18 14:19> - Procedure Monitoring Vital Signs: Procedure Monitoring Vital Signs Temperature 98.3 F 07/24/18 12:50 Pulse Rate 112 H 07/24/18 12:50 Respiratory Rate 17 07/24/18 12:50 Blood Pressure 126/66 07/24/18 12:50 O2 Sat by Pulse Oximetry (%) 100 07/24/18 12:50 <Kristin Smith - Last Filed: 07/27/18 07:21> ED Treatment Course - LABORATORY CBC & Chemistry Diagram: 07/26/18 11:00 07/26/18 11:00 - ADDITIONAL ORDERS Additional order review: Laboratory Results 07/24/18 07/24/18 07/24/18 14:33 14:20 14:20 VBG pH 7.26 L D POC VBG pCO2 45.7 POC VBG pO2 42.1 Mixed VBG HCO3 19.6 Sodium 136 Potassium 5.0 Chloride 102 Carbon Dioxide 21 Anion Gap 13 BUN 37 H Creatinine 1.7 H Creat Clearance w eGFR 30.26 Random Glucose 392 H* Lactic Acid 2.4 H* Calcium 10.4 H Phosphorus 2.5 Magnesium 2.6 H Total Bilirubin 0.4 AST 10 L ALT 22 Alkaline Phosphatase 82 Total Protein 8.4 H Albumin 3.7 Lipase 173 TSH 0.93 Acetone, Qual Positive moderate 2+ H 07/24/18 14:20 RBC 4.10 MCV 93.0 MCHC 33.8 RDW 15.2 MPV 10.8 Neutrophils % 85.1 H D Lymphocytes % 10.6 D Monocytes % 4.0 Eosinophils % 0.0 D Basophils % 0.3 - Medications Given in the ED: ED Medications Discontinued Medications Generic Name Dose Route Start Last Admin Trade Name Freq PRN Reason Stop Dose Admin Sodium Chloride 1,000 mls @ 1,000 mls/hr 07/24/18 13:54 07/24/18 13:55 Normal Saline - IV 07/24/18 14:53 1,000 mls/hr ASDIR STA Administration Sodium Chloride 1,000 mls @ 1,000 mls/hr 07/24/18 16:27 07/24/18 17:01 Normal Saline - IV 07/24/18 17:26 1,000 mls/hr ASDIR STA Administration Insulin Human Regular 5 units 07/24/18 15:44 07/24/18 16:15 Novolin R Vial *For Ivpush Or Iv Drip Only* IVPUSH 07/24/18 15:45 5 units ONCE ONE Administration <Kristin Smith - Last Filed: 07/27/18 07:21> Medical Decision Making - Medical Decision Making 62 yo F with a hx of HTN, IDDM (significant hx of medication non compliance), HLD, CVA (left sided residual weakness uses cane for ambulation) presents to the emergency department with hyperglycemia from her PMD's office (Dr. Morales) with a reported BG of 600. Initial vitals: Initial Vital Signs Temp Pulse Resp BP Pulse Ox 98.3 F 112 H 17 126/66 100 07/24/18 12:50 07/24/18 12:50 07/24/18 12:50 07/24/18 12:50 07/24/18 12:50 Work up: ddx: <Brigido Kerr - Last Filed: 07/24/18 14:19> *DC/Admit/Observation/Transfer <Brigido Kerr - Last Filed: 07/24/18 14:19> - Discharge Dispostion Decision to Admit order: Yes Decision to Admit order Date/Time: Decision to Admit Order Category Date Time Status Decision to Admit to Hospital Routine Admission 07/24/18 17:58 Ordered <Kristin Smith - Last Filed: 07/27/18 07:21> Diagnosis at time of Disposition: DKA (diabetic ketoacidoses), Hyperglycemia, Diabetes mellitus - Discharge Dispostion Condition at time of disposition: Guarded
[2018-07-24] MEDS ORDERED: SODIUM CHLORIDE 1,000 ML IV STA ×2 (13:54→16:27)
[2018-07-24] MEDS ORDERED: INSULIN REGULAR HUMAN 100 UNITS/ML *VIAL IVPUSH ONE ×2 (14:32→15:44)
[2018-07-24 14:52] LABS: BASO % 0.3 % (0-2.0); HEMATOCRIT 38.1 % (32.4-45.2); HEMOGLOBIN 12.9 GM/dL (10.7-15.3); LYMPH % 10.6 % (8-40); MCH 31.4 pg (25.7-33.7); MCHC 33.8 g/dl (32.0-36.0); MEAN PLT VOLUME 10.8 fl (7.5-11.1); NEUT % 85.1 % (42.8-82.8); PLATELET COUNT 200 K/MM3 (134-434); RDW 15.2 % (11.6-15.6); WHITE BLOOD COUNT 8.3 K/mm3 (4.0-10.0)
[2018-07-24 15:04] LABS: VENOUS PC02 45.7 mmHg (38-52); VENOUS PH 7.26 (7.32-7.42); VENOUS PO2 42.1 mmHg (28-48)
--- NOTE | 2018-07-24 15:28 | PDOC ---
Attending Attestation - HPI HPI: 07/24/18 15:29 62 year old female with PMH of CVA (L sided residual weakness, walks with a cane ), IDDM(not compliant with medication), HTN, HLD, and recurrent UTIs with daughter at bedside who presents to the emergency department for hyperglycemia. Patient was given 10 units of insulin by facility. EMS reports BGL of 593 on field. Patient reports concurrent dysuria with hematuria x 1 week. As per daughter at bedside, patient had a banana shake this morning. Daughter reports patient has a poor diet and is non compliant with medications. Denies cp, sob, f /c, n/v or recent sick contacts. - Physicial Exam PE: NAD, well appearing, dry mucus membranes,, nl conjunctiva, anicteric; neck supple. lungs clear, mild tachycardia, no murmurs., abdomen soft nontender. WILKINS x4, no focal neuro deficits. No peripheral edema. normal color for ethnicity, WWP - Medical Decision Making Documentation prepared by Franco Garcia, acting as medical assistant cardiology for Kristin Smith MD. <Franco Garcia - Last Filed: 07/24/18 15:29> - Resident Resident Name: Brigido Kerr - ED Attending Attestation I have performed the following: I have examined & evaluated the patient, The case was reviewed & discussed with the resident, I agree w/resident's findings & plan - Medical Decision Making I, Kristin Smith MD, attest that this document has been prepared under my direction and personally reviewed by me in its entirety. I further attest, that it accurately reflects all work, treatment, procedures and medical decision -making performed by me. See HPI for details DDx. dehydration, DKA, UTI, anemia, metabolic/electrolyte derangements, HHS. hyperglycemia. Med noncompliance. Vital signs reviewed, wnl. Prior notes reviewed, including admissions, discharges and consultations. laboratory results and imaging reviewed, basic labs and lytes wnl, notable for mild acidosis, pH 7.26, but with dehydration vs mild DKA 2/2 polyuria. Cr elevated mildly elevated 1.7, most elevated at this level likely from dehydration and urine loss/hyperglycemia. UA_pending, to check for infection ED course: IVF and insulin for hyperglycemia, mild DKA without AG acidosis. + acetones moderately, acidosis noted. admit for hyperglycemia, mild DKA, dehydration and continued management of poorly controlled DM. 07/24/18 17:20 07/24/18 19:45 <Kristin Smith - Last Filed: 07/24/18 19:45>
[2018-07-24 15:37] LABS: ALBUMIN 3.7 g/dl (3.4-5.0); ALK PHOS 82 U/L (45-117); ANION GAP 13 MMOL/L (8-16); BILIRUBIN,TOTAL 0.4 mg/dL (0.2-1); BLOOD UREA NITROGEN 37 mg/dL (7-18); CALCIUM 10.4 mg/dL (8.5-10.1); CHLORIDE 102 mmol/L (98-107); CO2 21 mmol/L (21-32); CREATININE 1.7 mg/dL (0.55-1.3); LIPASE 173 U/L (73-393); MAGNESIUM 2.6 mg/dL (1.8-2.4); PHOSPHOROUS 2.5 mg/dL (2.5-4.9); SGOT/AST 10 U/L (15-37); SGPT/ALT 22 U/L (13-61); SODIUM 136 mmol/L (136-145); TOT PROT 8.4 g/dl (6.4-8.2)
[2018-07-24 15:40] LABS: GLUCOSE,RANDOM 392 mg/dL (74-106)
[2018-07-24 17:16] LABS: ACETONE SERUM POSITIVE MODERATE 2+ (NEGATIVE)
--- NOTE | 2018-07-24 18:14 | HP ---
Admitting History and Physical - Admission Chief Complaint: hyperglycemia History of Present Illness: This is a 62 year old female with PMH of CVA (L sided residual weakness, walks with a cane), IDDM (not compliant with medication), HTN, HLD, and recurrent UTIs presents to the emergency department for hyperglycemia. Information gathered from chart. Earlier in facility pt given 10 units of insulin by facility. EMS reports BGL of 593 on field. Patient reports concurrent polyuria stating today. pt states her DM is emotional. denies nausea, vomiting, chills. 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) Endocrine: Yes: Diabetes Mellitus - Past Surgical History Past Surgical History: Yes: , Hysterectomy, Tubal Ligation - Smoking History Smoking history: Never smoked Have you smoked in the past 12 months: No - Alcohol/Substance Use Hx Alcohol Use: No History of Substance Use: reports: None - Social History ADL: Independent Occupation: retired History of Recent Travel: No Home Medications - Allergies Allergies/Adverse Reactions: Allergies Allergy/AdvReac Type Severity Reaction Status Date / Time No Known Allergies Allergy Verified 07/24/18 12:57 - Home Medications Home Medications: Ambulatory Orders Gabapentin [Neurontin -] 400 mg PO TID #30 capsule MDD 3 01/02/18 Rosuvastatin [Crestor -] 40 mg PO HS #30 tablet MDD 1 01/02/18 Polyethylene Glycol 3350 [Miralax 119 gm Btl -] 17 gm PO BID bottle 05/23/18 Insulin (Novolog) [Novolog -] 0 units SQ AC 06/16/18 Aspirin [ASA -] 81 mg PO DAILY tab.chew 06/20/18 Docusate Sodium [Colace -] 300 mg PO HS #90 capsule 06/20/18 Metformin HCl [Glucophage] 1,000 mg PO BID #60 tablet 06/20/18 Sennosides [Senna -] 2 tab PO HS #60 tablet 06/20/18 Insulin (Levemir) [Levemir Vial] 30 units SQ DAILY #1 vial 07/12/18 Mirtazapine [Remeron -] 7.5 mg PO HS #30 tablet 07/12/18 Polyethylene Glycol 3350 [Miralax 119 gm Btl -] 17 gm PO BID #2 bottle 07/12/18 Sitagliptin Phosphate [Januvia] 100 mg PO DAILY #30 tablet 07/12/18 Family Disease History - Family Disease History Family Disease History: Diabetes: Mother (HTN) Review of Systems - Review of Systems Constitutional: reports: No Symptoms Eyes: reports: No Symptoms HENT: reports: No Symptoms Neck: reports: No Symptoms Cardiovascular: reports: No Symptoms Respiratory: reports: No Symptoms Gastrointestinal: reports: No Symptoms Musculoskeletal: reports: No Symptoms Integumentary: reports: No Symptoms Neurological: reports: No Symptoms Endocrine: reports: Other (polyuria) Hematology/Lymphatic: reports: No Symptoms Psychiatric: reports: No Symptoms Physical Examination Vital Signs: Vital Signs Temperature 98.3 F 07/24/18 12:50 Pulse Rate 112 H 07/24/18 12:50 Respiratory Rate 17 07/24/18 12:50 Blood Pressure 126/66 07/24/18 12:50 O2 Sat by Pulse Oximetry (%) 100 07/24/18 12:50 Constitutional: Yes: No Distress Eyes: Yes: Conjunctiva Clear HENT: Yes: Atraumatic Neck: Yes: Supple Cardiovascular: Yes: Regular Rate and Rhythm Respiratory: Yes: Regular, CTA Bilaterally Gastrointestinal: Yes: Normal Bowel Sounds, Soft Renal/: Yes: WNL Musculoskeletal: Yes: WNL Edema: No Integumentary: Yes: WNL Psychiatric: Yes: Alert, Oriented Labs: CBC, BMP 07/24/18 14:20 07/24/18 14:20 Problem List - Problems (1) Diabetes mellitus Code(s): E11.9 - TYPE 2 DIABETES MELLITUS WITHOUT COMPLICATIONS (2) Hyperglycemia Code(s): R73.9 - HYPERGLYCEMIA, UNSPECIFIED (3) Acute renal failure Code(s): N17.9 - ACUTE KIDNEY FAILURE, UNSPECIFIED (4) Dehydration with hypernatremia Code(s): E87.0 - HYPEROSMOLALITY AND HYPERNATREMIA Assessment/Plan Assessment: 62 year old female with pmhx of CVA (L sided residual weakness, walks with a cane), IDDM (not compliant with medication), HTN, HLD, and recurrent UTIs presents to the emergency department for hyperglycemia. Plan: 1. Hyperglycemia likely HHNK - Acetone postive, however gap negative - Aggressive hydration in ED - Start fluids NC 100cc.hr - Levemir 30 units Hs - ISS, BGM q2h 2. Lactic acidosis - Check LA now , s/p 2L in ED 3. DVT ppx - Heparin sq 4. hx CVA - ASA Dispo: - [facility] closed call in AM for verification of home meds Visit type - Emergency Visit Emergency Visit: Yes ED Registration Date: 07/24/18 Care time: The patient presented to the Emergency Department on the above date and was hospitalized for further evaluation of their emergent condition. - New Patient This patient is new to me today: Yes Date on this admission: 07/24/18 - Critical Care Critical Care patient: No
[2018-07-24] MEDS: SODIUM CHLORIDE 1,000 ML IV SCH (18:38)
[2018-07-24] MEDS ORDERED: INSULIN (NOVOLOG) ASPART 100 UNITS/ML 10ML VIAL ONE (21:33)
[2018-07-24] MEDS ORDERED: INSULIN (LEVEMIR) 100 UNITS/ML UNITS SQ ONE (21:33)
[2018-07-24] MEDS: INSULIN (LEVEMIR) 100 UNITS/ML UNITS SQ SCH (22:12)
[2018-07-24] MEDS: INSULIN (NOVOLOG) ASPART 100 UNITS/ML 10ML VIAL SQ SCH (22:13)
[2018-07-25] MEDS: SODIUM CHLORIDE 1,000 ML IV SCH (05:51)
[2018-07-25] MEDS: HEPARIN NA (PORCINE) 5,000 UNITS/ML 1ML VIAL SQ SCH ×2 (05:54→14:02)
[2018-07-25 07:16] LABS: BASO % 0.3 % (0-2.0); EOS % 0.9 % (0-4.5); HEMATOCRIT 29.7 % (32.4-45.2); HEMOGLOBIN 9.9 GM/dL (10.7-15.3); LYMPH % 16.3 % (8-40); MCH 30.7 pg (25.7-33.7); MCHC 33.5 g/dl (32.0-36.0); MEAN CELL VOLUME 91.8 fl (80-96); MEAN PLT VOLUME 10.6 fl (7.5-11.1); MONO % 6.1 % (3.8-10.2); NEUT % 76.4 % (42.8-82.8); PLATELET COUNT 144 K/MM3 (134-434); RBC 3.23 M/mm3 (3.60-5.2); RDW 15.2 % (11.6-15.6); WHITE BLOOD COUNT 5.1 K/mm3 (4.0-10.0)
[2018-07-25] MEDS: INSULIN (NOVOLOG) ASPART 100 UNITS/ML 10ML VIAL SQ SCH ×4 (07:30→22:43)
[2018-07-25 07:57] LABS: ALBUMIN 2.8 g/dl (3.4-5.0); ALK PHOS 56 U/L (45-117); ANION GAP 9 MMOL/L (8-16); BILIRUBIN,TOTAL 0.5 mg/dL (0.2-1); BLOOD UREA NITROGEN 19 mg/dL (7-18); CALCIUM 8.7 mg/dL (8.5-10.1); CHLORIDE 111 mmol/L (98-107); CO2 24 mmol/L (21-32); CREATININE 0.9 mg/dL (0.55-1.3); GLUCOSE,RANDOM 91 mg/dL (74-106); POTASSIUM 3.3 mmol/L (3.5-5.1); SGOT/AST 8 U/L (15-37); SGPT/ALT 16 U/L (13-61); SODIUM 144 mmol/L (136-145); TOT PROT 6.1 g/dl (6.4-8.2)
[2018-07-25] MEDS: ASPIRIN 81 MG CHEWABLE TABLETS PO SCH (10:37)
--- NOTE | 2018-07-25 15:22 | PN ---
Progress Note, Physician Chief Complaint: Hyperglycemia Hematuria History of Present Illness: NAD Non compliant outpatient, several readmissions for same complaint On IVF c/o hematuria upon admission- no urine collected so far drop in H/H-2/2 to bleeding vs dilutional? - Current Medication List Current Medications: Active Medications Aspirin (Asa -) 81 mg PO DAILY [facility] Last Admin: 07/25/18 10:37 Dose: 81 mg Docusate Sodium (Colace -) 300 mg PO HS JULIANA Gabapentin (Neurontin -) 400 mg PO TID [facility] Potassium Chloride/Sodium Chloride (Ns+20 Meq Kcl -) 20 meq in 1,000 mls @ 75 mls/hr IV ASDIR JULIANA Insulin Aspart (Novolog Vial) 1 units SQ ACHS [facility]; Protocol Last Admin: 07/25/18 12:21 Dose: 8 unit Insulin Detemir (Levemir Vial) 30 units SQ HS [facility]ULIANA Last Admin: 07/24/18 22:12 Dose: 30 unit Mirtazapine (Remeron -) 7.5 mg PO HS [facility] Polyethylene Glycol (Miralax (For Daily Use) -) 17 gm PO BID [facility] Rosuvastatin Calcium (Crestor -) 40 mg PO HS [facility]UL[facility] Senna (Senna -) 2 tab PO HS [facility] Sitagliptin Phosphate (Januvia -) 100 mg PO DAILY [facility] - Objective Vital Signs: Vital Signs Temperature 98.4 F 07/25/18 14:53 Pulse Rate 84 07/25/18 14:53 Respiratory Rate 18 07/25/18 14:53 Blood Pressure 123/72 07/25/18 14:53 O2 Sat by Pulse Oximetry (%) 100 07/25/18 10:00 Constitutional: Yes: Well Nourished, No Distress, Calm Cardiovascular: Yes: Regular Rate and Rhythm Respiratory: Yes: Regular Gastrointestinal: Yes: Normal Bowel Sounds, Soft Musculoskeletal: Yes: WNL Extremities: Yes: WNL Edema: No Peripheral Pulses WNL: Yes Neurological: Yes: Alert, Oriented Psychiatric: Yes: Alert, Oriented Labs: CBC, BMP 07/25/18 06:00 07/25/18 06:00 Problem List - Problems (1) Hematuria Assessment/Plan: -check UA+ UC Code(s): R31.9 - HEMATURIA, UNSPECIFIED (2) Diabetes mellitus Assessment/Plan: -BGM AC HS -Diabetic diet -Insulin Novolog+ levemir -Endocrinology consult Code(s): E11.9 - TYPE 2 DIABETES MELLITUS WITHOUT COMPLICATIONS (3) Diabetic ketoacidosis Assessment/Plan: -BGM AC HS -Diabetic diet -Insulin Novolog+ levemir -Endocrinology consult Code(s): E13.10 - OTH DIABETES MELLITUS WITH KETOACIDOSIS WITHOUT COMA (4) Anemia Assessment/Plan: -blood loss vs dilutional -monitor trend -recent workup for anemia negative -normal transfusion parameters Code(s): D64.9 - ANEMIA, UNSPECIFIED Assessment/Plan see problem list
[2018-07-25] MEDS: GABAPENTIN 400 MG CAPSULE (FP) PO SCH ×2 (15:34→22:34)
[2018-07-25] MEDS: sitaGLIPtin PHOSPHATE 50 MG TABLET PO SCH (15:34)
[2018-07-25] MEDS: SODIUM CHLORIDE 0.9%/KCL 20 MEQ/1,000 ML INFUS.BAG IV SCH (15:35)
[2018-07-25 17:32] LABS: URINE APPEARANCE CLEAR; URINE BILIRUBIN NEGATIVE (<2.0 mg/dL); URINE COLOR STRAW; URINE GLUCOSE (UA) 3+ (NEGATIVE); URINE KETONE NEGATIVE (NEGATIVE); URINE LEUK ESTERASE TRACE (NEGATIVE); URINE NITRITE NEGATIVE (NEGATIVE); URINE PROTEIN NEGATIVE (NEGATIVE); URINE UROBILINOGEN NEGATIVE mg/dL (0.2-1.0)
[2018-07-25 17:39] LABS: EPI CELLS RARE /HPF (FEW); URINE MUCUS RARE
[2018-07-25] MEDS ORDERED: POTASSIUM CHLORIDE ORAL LIQUID 20 MEQ/15 ML PO ONE (18:03)
[2018-07-25] MEDS ORDERED: PT OWN MED DRAWER 7, Y5N ONE (21:32)
[2018-07-25] MEDS ORDERED: ROSUVASTATIN CA 40 MG TABLET PO SCH (22:00)
[2018-07-25] MEDS ORDERED: ROSUVASTATIN CA 10 MG TABLET (FP) ONE (22:27)
[2018-07-25] MEDS: SENNOSIDES 8.6MG TABLET (FP) PO SCH (22:34)
[2018-07-25] MEDS: ROSUVASTATIN CA 20 MG TABLET (FP) PO SCH (22:34)
[2018-07-25] MEDS: MIRTAZAPINE 15 MG TABLET (FP) PO SCH (22:35)
[2018-07-25] MEDS: POLYETHYLENE GLYCOL 3350 119 GM BTL PO SCH (22:35)
[2018-07-25] MEDS: DOCUSATE SODIUM 100 MG CAPSULE (FP) PO SCH (22:35)
[2018-07-25] MEDS: INSULIN (LEVEMIR) 100 UNITS/ML UNITS SQ SCH (22:41)
--- NOTE | 2018-07-25 23:20 | CONSULT ---
Consult Consult Specialty:: endocrine Referred by:: cecilio desir np Reason for Consultation:: dm2 uncontrolled/non compliance - History of Present Illness Chief Complaint: high sugars History of Present Illness: 62 year old female with PMH of dm 2, non compliant with plan of care,CVA (L sided residual weakness, walks with a cane), (not compliant with medication), HTN, HLD, and recurrent UTIs presents to the emergency department for hyperglycemia. . Earlier in facility pt given 10 units of insulin by facility. EMS reports BGL of 593 on field. she has hadpolyuria and poly dipsia.she feels anxious and agitated easily.unable to handle the stress of this illness. 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) Endocrine: Yes: Diabetes Mellitus - Past Surgical History Past Surgical History: Yes: , Hysterectomy, Tubal Ligation - Alcohol/Substance Use Hx Alcohol Use: No History of Substance Use: reports: None - Smoking History Smoking history: Never smoked Have you smoked in the past 12 months: No - Social History Usual Living Arrangement: Alone ADL: Independent Occupation: retired History of Recent Travel: No Home Medications - Allergies Allergies/Adverse Reactions: Allergies Allergy/AdvReac Type Severity Reaction Status Date / Time No Known Allergies Allergy Verified 07/24/18 12:57 - Home Medications Home Medications: Ambulatory Orders Gabapentin [Neurontin -] 400 mg PO TID #30 capsule MDD 3 01/02/18 Rosuvastatin [Crestor -] 40 mg PO HS #30 tablet MDD 1 01/02/18 Polyethylene Glycol 3350 [Miralax 119 gm Btl -] 17 gm PO BID bottle 05/23/18 Insulin (Novolog) [Novolog -] 0 units SQ AC 06/16/18 Aspirin [ASA -] 81 mg PO DAILY tab.chew 06/20/18 Docusate Sodium [Colace -] 300 mg PO HS #90 capsule 06/20/18 Metformin HCl [Glucophage] 1,000 mg PO BID #60 tablet 06/20/18 Sennosides [Senna -] 2 tab PO HS #60 tablet 06/20/18 Insulin (Levemir) [Levemir Vial] 30 units SQ DAILY #1 vial 07/12/18 Mirtazapine [Remeron -] 7.5 mg PO HS #30 tablet 07/12/18 Polyethylene Glycol 3350 [Miralax 119 gm Btl -] 17 gm PO BID #2 bottle 07/12/18 Sitagliptin Phosphate [Januvia] 100 mg PO DAILY #30 tablet 07/12/18 Family Disease History - Family Disease History Family Disease History: Diabetes: Mother (HTN) Review of Systems - Review of Systems Constitutional: reports: Lethargy, Unintentional Wgt. Loss, Weakness Eyes: reports: Blurred Vision HENT: reports: No Symptoms Neck: reports: No Symptoms Cardiovascular: reports: Shortness of Breath Respiratory: reports: Exercise Intolerance Gastrointestinal: reports: Bloating Genitourinary: reports: No Symptoms Breasts: reports: No Symptoms Reported Musculoskeletal: reports: Extremity Pain, Muscle Pain, Muscle Cramps, Muscle Weakness Integumentary: reports: No Symptoms, Erythema, Lesions, Pruritis, Rash Neurological: reports: Weakness Endocrine: reports: Intolerance to Cold Physical Exam Vital Signs: Vital Signs Temperature 98.6 F 07/25/18 17:16 Pulse Rate 69 07/25/18 17:16 Respiratory Rate 20 07/25/18 17:16 Blood Pressure 122/66 07/25/18 17:16 O2 Sat by Pulse Oximetry (%) 100 07/25/18 10:00 Constitutional: Yes: Anxious Eyes: Yes: EOM Intact HENT: Yes: Normocephalic Neck: Yes: Trachea Midline Cardiovascular: Yes: Regular Rate and Rhythm Respiratory: Yes: CTA Bilaterally Gastrointestinal: Yes: Normal Bowel Sounds ...Rectal Exam: Yes: Deferred Renal/: Yes: WNL Musculoskeletal: Yes: WNL, Muscle Weakness Extremities: Yes: WNL Wound/Incision: Yes: Clean/Dry Neurological: Yes: Alert, Oriented Psychiatric: Yes: Alert, Oriented Labs: CBC, BMP 07/25/18 06:00 07/25/18 06:00 Problem List - Problems (1) Diabetes mellitus Code(s): E11.9 - TYPE 2 DIABETES MELLITUS WITHOUT COMPLICATIONS (2) Hematuria Code(s): R31.9 - HEMATURIA, UNSPECIFIED (3) Hyperglycemia Code(s): R73.9 - HYPERGLYCEMIA, UNSPECIFIED (4) Abdominal pain Code(s): R10.9 - UNSPECIFIED ABDOMINAL PAIN (5) Abscesses of both axillae Code(s): L02.411 - CUTANEOUS ABSCESS OF RIGHT AXILLA; L02.412 - CUTANEOUS ABSCESS OF LEFT AXILLA Assessment/Plan Current Active Problems Diabetes mellitus (Acute) Hematuria (Acute) Hyperglycemia (Acute) hyperlipidemia hypercalcemia dehydration Abnormal Lab Results 07/25/18 07/25/18 07/25/18 06:00 06:00 14:20 RBC 3.23 L Hgb 9.9 L Hct 29.7 L D Potassium 3.3 L Chloride 111 H BUN 19 H AST 8 L Total Protein 6.1 L Albumin 2.8 L Urine Glucose (UA) 3+ H Laboratory Results - last 24 hr 07/24/18 07/25/18 07/25/18 21:25 05:37 06:00 WBC 5.1 RBC 3.23 L Hgb 9.9 L Hct 29.7 L D MCV 91.8 MCH 30.7 MCHC 33.5 RDW 15.2 Plt Count 144 D MPV 10.6 Absolute Neuts (auto) 3.9 Neutrophils % 76.4 Lymphocytes % 16.3 D Monocytes % 6.1 Eosinophils % 0.9 D Basophils % 0.3 Nucleated RBC % 0 Sodium Potassium Chloride Carbon Dioxide Anion Gap BUN Creatinine Creat Clearance w eGFR POC Glucometer > 400 52 Random Glucose Calcium Magnesium Total Bilirubin AST ALT Alkaline Phosphatase Total Protein Albumin Urine Color Urine Appearance Urine pH Ur Specific [place] Urine Protein Urine Glucose (UA) Urine Ketones Urine Blood Urine Nitrite Urine Bilirubin Urine Urobilinogen Ur Leukocyte Esterase Urine WBC (Auto) Urine RBC (Auto) Ur Epithelial Cells Urine Mucus 07/25/18 07/25/18 07/25/18 06:00 12:16 14:20 WBC RBC Hgb Hct MCV MCH MCHC RDW Plt Count MPV Absolute Neuts (auto) Neutrophils % Lymphocytes % Monocytes % Eosinophils % Basophils % Nucleated RBC % Sodium 144 Potassium 3.3 L Chloride 111 H Carbon Dioxide 24 Anion Gap 9 BUN 19 H Creatinine 0.9 Creat Clearance w eGFR > 60 POC Glucometer 316 Random Glucose 91 Calcium 8.7 Magnesium 2.0 Total Bilirubin 0.5 AST 8 L ALT 16 Alkaline Phosphatase 56 Total Protein 6.1 L Albumin 2.8 L Urine Color Straw Urine Appearance Clear Urine pH 6.0 Ur Specific [place] 1.017 Urine Protein Negative Urine Glucose (UA) 3+ H Urine Ketones Negative Urine Blood Negative Urine Nitrite Negative Urine Bilirubin Negative Urine Urobilinogen Negative Ur Leukocyte Esterase Trace Urine WBC (Auto) 5 Urine RBC (Auto) <1 Ur Epithelial Cells Rare Urine Mucus Rare 07/25/18 16:52 WBC RBC Hgb Hct MCV MCH MCHC RDW Plt Count MPV Absolute Neuts (auto) Neutrophils % Lymphocytes % Monocytes % Eosinophils % Basophils % Nucleated RBC % Sodium Potassium Chloride Carbon Dioxide Anion Gap BUN Creatinine Creat Clearance w eGFR POC Glucometer 308 Random Glucose Calcium Magnesium Total Bilirubin AST ALT Alkaline Phosphatase Total Protein Albumin Urine Color Urine Appearance Urine pH Ur Specific [place] Urine Protein Urine Glucose (UA) Urine Ketones Urine Blood Urine Nitrite Urine Bilirubin Urine Urobilinogen Ur Leukocyte Esterase Urine WBC (Auto) Urine RBC (Auto) Ur Epithelial Cells Urine Mucus plan: bgm qid novolog insulin levemir 30 units am levemir 10 units hs psychiatry consult
[2018-07-26] MEDS ORDERED: POTASSIUM CHLORIDE ORAL LIQUID 20 MEQ/15 ML PO ONE
[2018-07-26] MEDS: INSULIN (NOVOLOG) ASPART 100 UNITS/ML 10ML VIAL SQ SCH ×4 (06:16→22:20)
[2018-07-26] MEDS: GABAPENTIN 400 MG CAPSULE (FP) PO SCH ×3 (06:34→22:19)
[2018-07-26] MEDS: sitaGLIPtin PHOSPHATE 50 MG TABLET PO SCH (06:35)
[2018-07-26] MEDS ORDERED: INSULIN (LEVEMIR) 100 UNITS/ML UNITS SQ SCH ×3 (07:00→22:00)
[2018-07-26] MEDS ORDERED: PT OWN MED DRAWER 7, Y5N ONE (10:14)
[2018-07-26] MEDS: ASPIRIN 81 MG CHEWABLE TABLETS PO SCH (10:23)
[2018-07-26] MEDS: POLYETHYLENE GLYCOL 3350 119 GM BTL PO SCH ×2 (10:24→22:19)
[2018-07-26] MEDS ORDERED: INSULIN (LEVEMIR) 100 UNITS/ML UNITS SQ ONE ×2 (10:43→11:38)
--- NOTE | 2018-07-26 10:53 | PN ---
Progress Note, Physician Chief Complaint: Hyperglycemia Hematuria History of Present Illness: NAD Non compliant outpatient, several readmissions for same complaint On IVF c/o hematuria upon admission- no urine collected so far drop in H/H-2/2 to bleeding vs dilutional? repeat labs pending - Current Medication List Current Medications: Active Medications Aspirin (Asa -) 81 mg PO DAILY [facility] Last Admin: 07/26/18 10:23 Dose: 81 mg Docusate Sodium (Colace -) 300 mg PO [facility] Last Admin: 07/25/18 22:35 Dose: 300 mg Gabapentin (Neurontin -) 400 mg PO TID [facility] Last Admin: 07/26/18 06:34 Dose: 400 mg Potassium Chloride/Sodium Chloride (Ns+20 Meq Kcl -) 20 meq in 1,000 mls @ 75 mls/hr IV ASDIR [facility] Last Admin: 07/25/18 15:35 Dose: 75 mls/hr Insulin Aspart (Novolog Vial) 1 units SQ [facility]; Protocol Last Admin: 07/26/18 06:16 Dose: Not Given Mirtazapine (Remeron -) 7.5 mg PO [facility] Last Admin: 07/25/18 22:35 Dose: 7.5 mg Polyethylene Glycol (Miralax (For Daily Use) -) 17 gm PO BID [facility] Last Admin: 07/26/18 10:24 Dose: 17 gm Rosuvastatin Calcium (Crestor -) 40 mg PO [facility] Last Admin: 07/25/18 22:34 Dose: 40 mg Senna (Senna -) 2 tab PO [facility] Last Admin: 07/25/18 22:34 Dose: 2 tab Sitagliptin Phosphate (Januvia -) 100 mg PO DAILY@0700 [facility] Last Admin: 07/26/18 06:35 Dose: Not Given - Objective Vital Signs: Vital Signs Temperature 98.6 F 07/25/18 17:16 Pulse Rate 69 07/25/18 17:16 Respiratory Rate 20 07/25/18 17:16 Blood Pressure 122/66 07/25/18 17:16 O2 Sat by Pulse Oximetry (%) 100 07/25/18 22:00 Constitutional: Yes: Well Nourished, No Distress, Calm Cardiovascular: Yes: Regular Rate and Rhythm Respiratory: Yes: Regular Gastrointestinal: Yes: Normal Bowel Sounds, Soft Musculoskeletal: Yes: WNL Extremities: Yes: WNL Edema: No Peripheral Pulses WNL: Yes Neurological: Yes: Alert, Oriented Psychiatric: Yes: Alert, Oriented Labs: CBC, BMP 07/25/18 06:00 07/25/18 06:00 Problem List - Problems (1) Hematuria Assessment/Plan: -check UA-negative for any blood -UC-pending Code(s): R31.9 - HEMATURIA, UNSPECIFIED (2) Diabetes mellitus Assessment/Plan: -BGM AC HS -Diabetic diet -Insulin Novolog+ levemir -Endocrinology consult Code(s): E11.9 - TYPE 2 DIABETES MELLITUS WITHOUT COMPLICATIONS (3) Diabetic ketoacidosis Assessment/Plan: -BGM AC HS -Diabetic diet -Insulin Novolog+ levemir -Endocrinology consult Code(s): E13.10 - OTH DIABETES MELLITUS WITH KETOACIDOSIS WITHOUT COMA (4) Anemia Assessment/Plan: -blood loss vs dilutional -monitor trend -recent workup for anemia negative -normal transfusion parameters -repeat labs pending Code(s): D64.9 - ANEMIA, UNSPECIFIED (5) Hypokalemia Assessment/Plan: -dilutional vs DKA -KCL 40 meq once -Change IVF to NS+KCl 20 meq @ 75 CC/hr -repeat labs pending Code(s): E87.6 - HYPOKALEMIA (6) Non compliance with medical treatment Assessment/Plan: -4 th admission in past 2 months for hyperglycemia due to non compliance of medication regimen -Pt and daughter has been educated during each admission -Has been seen by Psychiatry in the past, will have psychotherapist see the pt again Code(s): Z91.19 - PATIENT'S NONCOMPLIANCE W OTH MEDICAL TREATMENT AND REGIMEN (7) Hidradenitis suppurativa Assessment/Plan: BL axillary and right groin Code(s): L73.2 - HIDRADENITIS SUPPURATIVA Assessment/Plan see problem list Pt self ambulatory
[2018-07-26 10:55] VITALS: BMI 23.2
--- NOTE | 2018-07-26 11:37 | CON.PSY ---
Psychiatry Consult Chief Complaint: 62v year old female with DM which has been uncontrollable due to Patients non com-pliance. Patient apparantly has history of DEpression. Onj no psych meds. Patient is irritable and angry. Symptoms: reports: Inability to Control Temper - Previous Psychiatric Treatment Outpatient: More than 6 mos ago Inpatient: None - Previous Substance Abuse Treatment Outpatient: None Inpatient: None - Reason for Previous Treatment Reason for Previous Treatment: Major Depression - Current Medications Current Medications: Active Medications Aspirin (Asa -) 81 mg PO DAILY [facility] Last Admin: 07/26/18 10:23 Dose: 81 mg Docusate Sodium (Colace -) 300 mg PO [facility] Last Admin: 07/25/18 22:35 Dose: 300 mg Gabapentin (Neurontin -) 400 mg PO TID [facility] Last Admin: 07/26/18 06:34 Dose: 400 mg Potassium Chloride/Sodium Chloride (Ns+20 Meq Kcl -) 20 meq in 1,000 mls @ 75 mls/hr IV ASDIR [facility] Last Admin: 07/25/18 15:35 Dose: 75 mls/hr Insulin Aspart (Novolog Vial) 1 units SQ [facility]; Protocol Last Admin: 07/26/18 06:16 Dose: Not Given Insulin Detemir (Levemir Vial) 10 units SQ HS [facility] Insulin Detemir (Levemir Vial) 28 units SQ AM [facility] Mirtazapine (Remeron -) 7.5 mg PO [facility] Last Admin: 07/25/18 22:35 Dose: 7.5 mg Polyethylene Glycol (Miralax (For Daily Use) -) 17 gm PO BID [facility] Last Admin: 07/26/18 10:24 Dose: 17 gm Rosuvastatin Calcium (Crestor -) 40 mg PO [facility] Last Admin: 07/25/18 22:34 Dose: 40 mg Senna (Senna -) 2 tab PO [facility] Last Admin: 07/25/18 22:34 Dose: 2 tab Sitagliptin Phosphate (Januvia -) 100 mg PO DAILY@0700 [facility] Last Admin: 07/26/18 06:35 Dose: Not Given - Allergies Allergies: Allergies Allergy/AdvReac Type Severity Reaction Status Date / Time No Known Allergies Allergy Verified 07/24/18 12:57 - Current Living Status Usual Living Arrangement: With Significant Other - Current Mental Status Evaluation Appearance: Well Groomed Attitude: Uncooperative - Affect Affect: Constrictive Appropriateness: Appropriate to Content - Mood Mood: Irritable - Speech/Language Expressive: Coherent - Psychomotor Activity Psychomotor Activity: Normal - Thought Process Thought Process: Intact - Thought Content Hallucinations: Absent Delusions: Absent - Self Perception Self Perception: No Impairment - Cognition Attention: Alert Orientation: Time Memory, Immediate Recall: Intact Memory, Short Term: 2/3 Memory, Remote with Promptin/3 - Concentration Serial Sevens Intact: No Simple Calculations Intact: Yes - Abstraction Proverb Interpretation: Intact Judgement: Minimally Impaired - Insight Insight: Impaired - Impulse Control Impulse Control: Minimally Impaired - Suicidal Ideation Suicidal Ideation: No - Homicidal Ideation Homicidal Ideation: No Assessment/Plan 1) start Lexapro 10mg po od.
[2018-07-26 11:50] LABS: BASO % 0.4 % (0-2.0); EOS % 1.2 % (0-4.5); HEMOGLOBIN 10.2 GM/dL (10.7-15.3); LYMPH % 25.1 % (8-40); MCH 30.8 pg (25.7-33.7); MCHC 32.8 g/dl (32.0-36.0); MEAN CELL VOLUME 93.9 fl (80-96); MEAN PLT VOLUME 10.7 fl (7.5-11.1); MONO % 7.5 % (3.8-10.2); NEUT % 65.8 % (42.8-82.8); PLATELET COUNT 133 K/MM3 (134-434); RDW 15.4 % (11.6-15.6); WHITE BLOOD COUNT 4.5 K/mm3 (4.0-10.0)
[2018-07-26 12:12] LABS: ALBUMIN 2.6 g/dl (3.4-5.0); ALK PHOS 60 U/L (45-117); ANION GAP 7 MMOL/L (8-16); BILIRUBIN,TOTAL 0.6 mg/dL (0.2-1); BLOOD UREA NITROGEN 16 mg/dL (7-18); CALCIUM 8.8 mg/dL (8.5-10.1); CHLORIDE 116 mmol/L (98-107); CO2 25 mmol/L (21-32); CREATININE 0.8 mg/dL (0.55-1.3); GLUCOSE,RANDOM 236 mg/dL (74-106); POTASSIUM 5.1 mmol/L (3.5-5.1); SGOT/AST 23 U/L (15-37); SGPT/ALT 18 U/L (13-61); SODIUM 148 mmol/L (136-145); TOT PROT 6.2 g/dl (6.4-8.2)
[2018-07-26] MEDS ORDERED: POTASSIUM CHLORIDE TABS 20 MEQ TABLET.ER (FP) PO ONE (15:18)
[2018-07-26] MEDS: SODIUM CHLORIDE 0.9%/KCL 20 MEQ/1,000 ML INFUS.BAG IV SCH (18:54)
[2018-07-26] MEDS ORDERED: ROSUVASTATIN CA 10 MG TABLET (FP) ONE (20:38)
[2018-07-26] MEDS: DOCUSATE SODIUM 100 MG CAPSULE (FP) PO SCH (22:19)
[2018-07-26] MEDS: SENNOSIDES 8.6MG TABLET (FP) PO SCH (22:19)
[2018-07-26] MEDS: ROSUVASTATIN CA 20 MG TABLET (FP) PO SCH (22:21)
[2018-07-26] MEDS: MIRTAZAPINE 15 MG TABLET (FP) PO SCH (22:22)
[2018-07-27] MEDS: INSULIN (NOVOLOG) ASPART 100 UNITS/ML 10ML VIAL SQ SCH ×3 (06:36→16:22)
[2018-07-27] MEDS: sitaGLIPtin PHOSPHATE 50 MG TABLET PO SCH (06:37)
[2018-07-27] MEDS: GABAPENTIN 400 MG CAPSULE (FP) PO SCH ×2 (06:37→13:23)
[2018-07-27] MEDS: SODIUM CHLORIDE 0.9%/KCL 20 MEQ/1,000 ML INFUS.BAG IV SCH ×2 (08:33→19:54)
[2018-07-27] MEDS: POLYETHYLENE GLYCOL 3350 119 GM BTL PO SCH (09:31)
[2018-07-27] MEDS: ASPIRIN 81 MG CHEWABLE TABLETS PO SCH (09:31)
[2018-07-27] MEDS ORDERED: ESCITALOPRAM OXALATE 10 MG TABLET (FP) PO SCH (10:00)
--- NOTE | 2018-07-27 11:15 | DS ---
Physical Examination Vital Signs: Vital Signs Temperature 98.1 F 07/27/18 06:42 Pulse Rate 88 07/27/18 06:42 Respiratory Rate 20 07/27/18 06:42 Blood Pressure 123/61 07/27/18 06:42 O2 Sat by Pulse Oximetry (%) 100 07/25/18 22:00 Findings/Remarks: This is a 62 year old female with PMH of CVA (L sided residual weakness, walks with a cane), IDDM (not compliant with medication), HTN, HLD, and recurrent UTIs presents to the emergency department for hyperglycemia. Information gathered from chart. Earlier in facility pt given 10 units of insulin by facility. EMS reports BGL of 593 on field. Patient reports concurrent polyuria stating today. pt states her DM is emotional. denies nausea, vomiting, chills. Constitutional: Yes: Well Nourished, No Distress, Calm Cardiovascular: Yes: Regular Rate and Rhythm Respiratory: Yes: Regular Gastrointestinal: Yes: Normal Bowel Sounds, Soft Musculoskeletal: Yes: WNL Extremities: Yes: WNL Edema: No Peripheral Pulses WNL: Yes Neurological: Yes: Alert, Oriented Psychiatric: Yes: Alert, Oriented Labs: CBC, BMP 07/26/18 11:00 07/26/18 11:00 Discharge Summary Reason For Visit: INSULIN DEPENDENT DIABETES MELLITUS/HYPERGLYCEMIA Current Active Problems Diabetes mellitus (Acute) Diabetic ketoacidosis (Acute) Hematuria (Acute) Hidradenitis suppurativa (Acute) Hyperglycemia (Acute) Hypokalemia (Acute) Hospital Course: Laboratory Last Values WBC 4.5 K/mm3 (4.0-10.0) 07/26/18 11:00 RBC 3.30 M/mm3 (3.60-5.2) L 07/26/18 11:00 Hgb 10.2 GM/dL (10.7-15.3) L 07/26/18 11:00 Hct 31.0 % (32.4-45.2) L 07/26/18 11:00 MCV 93.9 fl (80-96) 07/26/18 11:00 MCH 30.8 pg (25.7-33.7) 07/26/18 11:00 MCHC 32.8 g/dl (32.0-36.0) 07/26/18 11:00 RDW 15.4 % (11.6-15.6) 07/26/18 11:00 Plt Count 133 K/MM3 (134-434) L 07/26/18 11:00 MPV 10.7 fl (7.5-11.1) 07/26/18 11:00 Absolute Neuts (auto) 3.0 K/mm3 (1.5-8.0) 07/26/18 11:00 Neutrophils % 65.8 % (42.8-82.8) 07/26/18 11:00 Lymphocytes % 25.1 % (8-40) D 07/26/18 11:00 Monocytes % 7.5 % (3.8-10.2) 07/26/18 11:00 Eosinophils % 1.2 % (0-4.5) 07/26/18 11:00 Basophils % 0.4 % (0-2.0) 07/26/18 11:00 Nucleated RBC % 0 % (0-0) 07/26/18 11:00 VBG pH 7.26 (7.32-7.42) L D 07/24/18 14:20 POC VBG pCO2 45.7 mmHg (38-52) 07/24/18 14:20 POC VBG pO2 42.1 mmHg (28-48) 07/24/18 14:20 Mixed VBG HCO3 19.6 meq/L (19-25) 07/24/18 14:20 Sodium 148 mmol/L (136-145) H 07/26/18 11:00 Potassium 5.1 mmol/L (3.5-5.1) 07/26/18 11:00 Chloride 116 mmol/L (98-107) H 07/26/18 11:00 Carbon Dioxide 25 mmol/L (21-32) 07/26/18 11:00 Anion Gap 7 MMOL/L (8-16) L 07/26/18 11:00 BUN 16 mg/dL (7-18) 07/26/18 11:00 Creatinine 0.8 mg/dL (0.55-1.3) 07/26/18 11:00 Creat Clearance w eGFR > 60 (>60) 07/26/18 11:00 POC Glucometer 81 UNITS (80-120) 07/27/18 06:06 Random Glucose 236 mg/dL (74-106) H 07/26/18 11:00 Lactic Acid 0.8 mmol/L (0.4-2.0) 07/24/18 19:18 Calcium 8.8 mg/dL (8.5-10.1) 07/26/18 11:00 Phosphorus 2.5 mg/dL (2.5-4.9) 07/24/18 14:20 Magnesium 2.0 mg/dL (1.8-2.4) 07/25/18 06:00 Total Bilirubin 0.6 mg/dL (0.2-1) 07/26/18 11:00 AST 23 U/L (15-37) 07/26/18 11:00 ALT 18 U/L (13-61) 07/26/18 11:00 Alkaline Phosphatase 60 U/L (45-117) 07/26/18 11:00 Troponin I < 0.02 ng/ml (0.00-0.05) 07/24/18 14:20 Total Protein 6.2 g/dl (6.4-8.2) L 07/26/18 11:00 Albumin 2.6 g/dl (3.4-5.0) L 07/26/18 11:00 Lipase 173 U/L (73-393) 07/24/18 14:20 TSH 0.93 uIU/ml (0.358-3.74) 07/24/18 14:20 Urine Color Straw 07/25/18 14:20 Urine Appearance Clear 07/25/18 14:20 Urine pH 6.0 (5.0-8.0) 07/25/18 14:20 Ur Specific [place] 1.017 (1.010-1.035) 07/25/18 14:20 Urine Protein Negative (NEGATIVE) 07/25/18 14:20 Urine Glucose (UA) 3+ (NEGATIVE) H 07/25/18 14:20 Urine Ketones Negative (NEGATIVE) 07/25/18 14:20 Urine Blood Negative (NEGATIVE) 07/25/18 14:20 Urine Nitrite Negative (NEGATIVE) 07/25/18 14:20 Urine Bilirubin Negative (<2.0 mg/dL) 07/25/18 14:20 Urine Urobilinogen Negative mg/dL (0.2-1.0) 07/25/18 14:20 Ur Leukocyte Esterase Trace (NEGATIVE) 07/25/18 14:20 Urine WBC (Auto) 5 /hpf (3-5) 07/25/18 14:20 Urine RBC (Auto) <1 /hpf (0-3) 07/25/18 14:20 Ur Epithelial Cells Rare /HPF (FEW) 07/25/18 14:20 Urine Mucus Rare 07/25/18 14:20 Stool Occult Blood Negative (NEGATIVE) 07/26/18 23:11 Acetone, Qual Positive moderate 2+ (NEGATIVE) H 07/24/18 14:20 Microbiology 07/25/18 16:04 Axilla/Armpit - Left Gram Stain - Final 07/25/18 16:04 Axilla/Armpit - Left Wound Culture - Preliminary Presumptive Mrsa (Pbp2a Pos) 07/25/18 14:20 Urine - Urine Clean Catch Urine Culture - Preliminary Beta Hemolytic Strep Condition: Stable - Instructions Referrals: Darion Morales [Primary Care Provider] - Jose Nath MD [Staff Physician] - Disposition: VNS/HOME HEALTH CARE - Home Medications Comprehensive Discharge Medication List: Ambulatory Orders Gabapentin [Neurontin -] 400 mg PO TID #30 capsule MDD 3 01/02/18 Rosuvastatin [Crestor -] 40 mg PO HS #30 tablet MDD 1 01/02/18 Polyethylene Glycol 3350 [Miralax 119 gm Btl -] 17 gm PO BID bottle 05/23/18 Insulin (Novolog) [Novolog -] 0 units SQ AC 06/16/18 Aspirin [ASA -] 81 mg PO DAILY tab.chew 06/20/18 Docusate Sodium [Colace -] 300 mg PO HS #90 capsule 06/20/18 Metformin HCl [Glucophage] 1,000 mg PO BID #60 tablet 06/20/18 Sennosides [Senna -] 2 tab PO HS #60 tablet 06/20/18 Insulin (Levemir) [Levemir Vial] 30 units SQ DAILY #1 vial 07/12/18 Mirtazapine [Remeron -] 7.5 mg PO HS #30 tablet 07/12/18 Polyethylene Glycol 3350 [Miralax 119 gm Btl -] 17 gm PO BID #2 bottle 07/12/18 Sitagliptin Phosphate [Januvia] 100 mg PO DAILY #30 tablet 07/12/18
[2018-07-27 15:22] VITALS: BP 121/54; PULSE 103; TEMP 98.5
== END 2018-07-27 20:27 | disposition home health service (06) ==
LOC: JER 12:34 → JERBED 17:58 → J8W 23:06
PROVIDERS: ADMIT Family Medicine; ATTEND Family Medicine
PROC: 3E033VG Introduction of Insulin into Peripheral Vein, Percutaneous Approach (ICD-10-PCS; principal; 2018-07-24)
PROC: 3E0337Z Introduction of Electrolytic and Water Balance Substance into Peripheral Vein, Percutaneous Approach (ICD-10-PCS; 2018-07-24)
PROC: 3E013VG Introduction of Insulin into Subcutaneous Tissue, Percutaneous Approach (ICD-10-PCS; 2018-07-24)
PROC: 3E013GC Introduction of Other Therapeutic Substance into Subcutaneous Tissue, Percutaneous Approach (ICD-10-PCS; 2018-07-24)
DX: E11.10 Type 2 diabetes mellitus with ketoacidosis without coma (principal); E11.65 Type 2 diabetes mellitus with hyperglycemia; Z79.4 Long term (current) use of insulin; Z79.84 Long term (current) use of oral hypoglycemic drugs; N17.9 Acute kidney failure, unspecified; E87.0 Hyperosmolality and hypernatremia; R31.9 Hematuria, unspecified; D64.9 Anemia, unspecified; L02.411 Cutaneous abscess of right axilla; L02.412 Cutaneous abscess of left axilla; E87.6 Hypokalemia; L73.2 Hidradenitis suppurativa; I10 Essential (primary) hypertension; E78.5 Hyperlipidemia, unspecified; I69.354 Hemiplegia and hemiparesis following cerebral infarction affecting left non-dominant side; Z79.82 Long term (current) use of aspirin; Z91.14 Patient's other noncompliance with medication regimen; Z87.440 Personal history of urinary (tract) infections; Z89.022 Acquired absence of left finger(s); R26.2 Difficulty in walking, not elsewhere classified; Z99.89 Dependence on other enabling machines and devices
CPT/HCPCS: 36415; 80053; 81003; 81015; 82009; 82272; 82803; 82962; 83605; 83690; 83735; 84100; 84443; 84484; 85025; 87070; 87086; 87186; 87205; 96361; 96372; 96374; 99284-25; G0378; J1644; J7030

== ENCOUNTER 2018-08-19 21:37 | Inpatient (IN) | payer OTHER ==
[2018-08-19 22:05] VITALS: BMI 21.9
--- NOTE | 2018-08-19 22:24 | PDOC ---
History of Present Illness - General Chief Complaint: Weakness Stated Complaint: DIZZINESS Time Seen by Provider: 08/19/18 22:24 History Source: Patient, Family Exam Limitations: Language Barrier - History of Present Illness Initial Comments: 08/19/18 22:30 62 year old female with PMH HTN, IDDM, DKA, CKD, UTI, diabetic neuropathy, anemia, hypokalcemia, hypernatremia, CVA with residual left sided weakness presented to ED for generalized weakness x1 week. Daughter stated pt has had increased urinary frequency, increased thirst, urinary incontinence x1 month. She stated that pt has had intermittent palpitations, like her heart is beating hard, over the last week. Pt stated she has had intermittent chest pain and shortness of breath when she feels the palpitations, but has not had chest pain today or yesterday. Pt admitted to suprapubic pain x1 week. Pt denied fever, nausea, vomiting, diarrhea. Daughter stated pt has lost 30-40 pounds over the last 3 months. Daughter stated pt saw PCP Dr. Morales x2 weeks ago, was told everything was normal. Allergies: NKDA Past History - Past Medical History Allergies/Adverse Reactions: Allergies Allergy/AdvReac Type Severity Reaction Status Date / Time No Known Allergies Allergy Verified 07/24/18 12:57 Home Medications: Ambulatory Orders RX: Gabapentin [Neurontin -] 400 mg PO TID #30 capsule MDD 3 01/02/18 RX: Rosuvastatin [Crestor -] 40 mg PO HS #30 tablet MDD 1 01/02/18 RX: Polyethylene Glycol 3350 [Miralax 119 gm Btl -] 17 gm PO BID bottle RX: Aspirin [ASA -] 81 mg PO DAILY tab.chew 06/20/18 RX: Docusate Sodium [Colace -] 300 mg PO HS #90 capsule 06/20/18 RX: Metformin HCl [Glucophage] 1,000 mg PO BID #60 tablet 06/20/18 RX: Sennosides [Senna -] 2 tab PO HS #60 tablet 06/20/18 RX: Mirtazapine [Remeron -] 7.5 mg PO HS #30 tablet 07/12/18 RX: Polyethylene Glycol 3350 [Miralax 119 gm Btl -] 17 gm PO BID #2 bottle 07/12 RX: Sitagliptin Phosphate [Januvia] 100 mg PO DAILY #30 tablet 07/12/18 RX: Clindamycin [Cleocin -] 300 mg PO TID #21 capsule 07/27/18 RX: Insulin (Levemir) [Levemir Vial] 10 units SQ HS units 07/27/18 RX: Insulin (Levemir) [Levemir Vial] 28 units SQ AM units 07/27/18 RX: Insulin (Novolog) [Novolog -] 0 units SQ AC #1 ea 07/27/18 Asthma: No CVA: Yes COPD: No Diabetes: Yes GI Disorders: Yes (CONSTIPATION) Disorders: Yes (recurrent UTIs) HTN: Yes Hypercholesterolemia: Yes Psychiatric Problems: Yes (Depression) Thyroid Disease: No - Surgical History Cardiac Surgery: No Gastric Stapling: No GI Surgery: No Lung Surgery: No Neurologic Surgery: No - Immunization History Immunization Up to Date: No - Suicide/Smoking/Psychosocial Hx Smoking History: Never smoked Have you smoked in the past 12 months: No Information on smoking cessation initiated: No Hx Alcohol Use: No Drug/Substance Use Hx: No Substance Use Type: None Hx Substance Use Treatment: No Review of Systems - Review of Systems Able to Perform ROS?: Yes Comments:: 08/19/18 22:42 General: admitted to generalized weaknes, weight loss. denied fever, chills, night sweats. HEENT: denied sore throat, rhinorrhea, ear pain. Heart: admitted to palpitations. denied chest pain, syncope, diaphoresis. Respiratory: admitted to shortness of breath. denied cough, sputum production, hemoptysis. Abdomen: admitted to abdominal pain. denied nausea, vomiting, diarrhea, constipation, blood in stool. : admitted to increased urinary frequency, urinary incontinence. denied dysuria, hematuria, flank pain. Back: denied back pain. Musculoskeletal: denied joint pain, muscle pain, joint swelling. Neurological: denied headache, dizziness, numbness, tingling, weakness. Skin: denied rash, laceration, abrasion. *Physical Exam - Vital Signs Last Vital Signs Temp Pulse Resp BP Pulse Ox 98.5 F 100 H 20 126/78 97 08/19/18 22:00 08/19/18 22:00 08/19/18 22:00 08/19/18 22:00 08/19/18 22:00 - Physical Exam Comments: 08/19/18 22:44 Constitutional: Well-nourished, Well-developed, appearing stated age. HEENT: head is normocephalic, atraumatic. EOMI. PERRLA. Neck: supple. Full ROM. Heart: regular rhythm. no murmurs, rubs or gallops. Lungs: clear to auscultation bilaterally. no crackles, rhonchi or wheezing. no stridor. Abdomen: soft, flat. tenderness to palpation of suprapubic area. normal bowel sounds. no rebound, guarding, masses. Extremities: Peripheral pulses intact. No lower extremity edema. Neurological: CN 2-12 grossly intact. Moves all four extremities. Psych: awake, alert, oriented x3. Follows commands. Answers questions appropriately. Moderate Sedation - Procedure Monitoring Vital Signs: Procedure Monitoring Vital Signs Temperature 98.5 F 08/19/18 22:00 Pulse Rate 100 H 08/19/18 22:00 Respiratory Rate 20 08/19/18 22:00 Blood Pressure 126/78 08/19/18 22:00 O2 Sat by Pulse Oximetry (%) 97 08/19/18 22:00 ED Treatment Course - LABORATORY CBC & Chemistry Diagram: 08/19/18 23:04 08/20/18 03:02 Medical Decision Making - Medical Decision Making 08/19/18 22:46 62 year old female with above PMH presented to ED for generalized weakness x1 week associated with increased urinary frequency, increased thirst, suprapubic pain. Initial Vital Signs Temp Pulse Resp BP Pulse Ox 98.5 F 100 H 20 126/78 97 08/19/18 22:00 08/19/18 22:00 08/19/18 22:00 08/19/18 22:00 08/19/18 22:00 Afebrile. Mild tachycardia. No tachypnea. No hypotension. No hypoxia on room air. EKG performed at 2343: rate 95, regular rhythm, normal axis, normal intervals, no acute ST changes. Labs ordered: CBC, CMP, troponin, BNP, TSH, acetone, VBG, mag, phos, UA/UC Imaging ordered: CXR Medications ordered: normal saline bolus 1000 cc 08/19/18 23:13 VBG: pH 7.25, CO2 37.5, HCO 15.7. - Metabolic acidosis 08/19/18 23:55 CBC WBC 7.2 K/mm3 (4.0-10.0) 08/19/18 23:04 RBC 3.82 M/mm3 (3.60-5.2) 08/19/18 23:04 Hgb 12.3 GM/dL (10.7-15.3) 08/19/18 23:04 Hct 38.0 % (32.4-45.2) D 08/19/18 23:04 MCV 99.5 fl (80-96) H 08/19/18 23:04 MCH 32.2 pg (25.7-33.7) 08/19/18 23:04 MCHC 32.4 g/dl (32.0-36.0) 08/19/18 23:04 RDW 18.3 % (11.6-15.6) H 08/19/18 23:04 Plt Count 126 K/MM3 (134-434) L 08/19/18 23:04 MPV 11.6 fl (7.5-11.1) H 08/19/18 23:04 Absolute Neuts (auto) 5.2 K/mm3 (1.5-8.0) 08/19/18 23:04 Neutrophils % 72.0 % (42.8-82.8) 08/19/18 23:04 Lymphocytes % 18.8 % (8-40) D 08/19/18 23:04 Monocytes % 8.2 % (3.8-10.2) 08/19/18 23:04 Eosinophils % 0.4 % (0-4.5) 08/19/18 23:04 Basophils % 0.6 % (0-2.0) 08/19/18 23:04 Nucleated RBC % 0 % (0-0) 08/19/18 23:04 Platelet Estimate Slt decrease 08/19/18 23:04 Platelet Comment No clumping noted 08/19/18 23:04 No leukocytosis. No anemia. 08/20/18 00:02 Lab reported jungle tops hemolyzed, pending repeat chem/trop/BNP/tsh 08/20/18 00:18 Acetone 3+ CXR my interpretation: sharp costophrenic angles. no infiltrate. no cardiomegaly. no pulmonary vascular congestion. - Pending official read 08/20/18 00:43 CMP Sodium 141 mmol/L (136-145) 08/19/18 23:40 Potassium 5.7 mmol/L (3.5-5.1) H 08/19/18 23:40 Chloride 106 mmol/L (98-107) 08/19/18 23:40 Carbon Dioxide 17 mmol/L (21-32) L 08/19/18 23:40 Anion Gap 18 MMOL/L (8-16) H 08/19/18 23:40 BUN 28 mg/dL (7-18) H 08/19/18 23:40 Creatinine 1.5 mg/dL (0.55-1.3) H 08/19/18 23:40 Creat Clearance w eGFR 34.96 (>60) 08/19/18 23:40 Random Glucose 493 mg/dL (74-106) H* 08/19/18 23:40 Calcium 9.9 mg/dL (8.5-10.1) 08/19/18 23:40 Phosphorus 4.4 mg/dL (2.5-4.9) 08/19/18 23:40 Magnesium 2.5 mg/dL (1.8-2.4) H 08/19/18 23:40 Total Bilirubin 0.4 mg/dL (0.2-1) 08/19/18 23:40 AST 16 U/L (15-37) 08/19/18 23:40 ALT 23 U/L (13-61) 08/19/18 23:40 Alkaline Phosphatase 78 U/L (45-117) 08/19/18 23:40 Troponin I < 0.02 ng/ml (0.00-0.05) 08/19/18 23:40 B-Natriuretic Peptide 20.3 pg/ml (5-125) 08/19/18 23:40 Total Protein 7.8 g/dl (6.4-8.2) 08/19/18 23:40 Albumin 3.4 g/dl (3.4-5.0) 08/19/18 23:40 TSH 0.69 uIU/ml (0.358-3.74) 08/19/18 23:40 Hyperkalemia Anion gap 18 Cr 1.5 - ALEX Glucose 493 No transaminitis Normal troponin Normal BNP Normal TSH 08/20/18 00:45 Urine Test Results Urine Color Straw 08/20/18 00:15 Urine Appearance Clear 08/20/18 00:15 Urine pH 5.0 (5.0-8.0) 08/20/18 00:15 Ur Specific [place] 1.017 (1.010-1.035) 08/20/18 00:15 Urine Protein Negative (NEGATIVE) 08/20/18 00:15 Urine Glucose (UA) 3+ (NEGATIVE) H 08/20/18 00:15 Urine Ketones 2+ (NEGATIVE) H 08/20/18 00:15 Urine Blood Negative (NEGATIVE) 08/20/18 00:15 Urine Nitrite Negative (NEGATIVE) 08/20/18 00:15 Urine Bilirubin Negative (<2.0 mg/dL) 08/20/18 00:15 Ur Leukocyte Esterase Negative (NEGATIVE) 08/20/18 00:15 Ketones in urine Glucose in urine No evidence of UTI Pt to be admitted for DKA. Pt has been admitted for similar scenario 2 times in the last 8 weeks secondary to medication noncompliance. No infectious source of cause of DKA found. Likely secondary to medication noncompliance. Medications ordered: 5 units regular insulin 08/20/18 01:39 I discussed the case with Dr. Carrasco about the case, pt will be admitted to Dr. Block's service. Pending admission. 08/20/18 01:55 Dr. Block advised 3 additional units or regular insulin. Above ordered. 08/20/18 04:31 Gap = 17 POC glucose = [address] Block advised ICU admission. I spoke with Dr. Sims about the case. Pending admission to ICU. *DC/Admit/Observation/Transfer Diagnosis at time of Disposition: DKA (diabetic ketoacidoses), ALEX (acute kidney injury) - Discharge Dispostion Condition at time of disposition: Stable Decision to Admit order: Yes - Referrals - Patient Instructions - Post Discharge Activity
[2018-08-19] MEDS ORDERED: SODIUM CHLORIDE 1,000 ML IV STA (22:27)
[2018-08-19 23:10] LABS: VENOUS PC02 37.5 mmHg (38-52); VENOUS PH 7.25 (7.32-7.42); VENOUS PO2 45.4 mmHg (28-48)
[2018-08-19 23:11] LABS: BASO % 0.6 % (0-2.0); EOS % 0.4 % (0-4.5); HEMOGLOBIN 12.3 GM/dL (10.7-15.3); LYMPH % 18.8 % (8-40); MCH 32.2 pg (25.7-33.7); MCHC 32.4 g/dl (32.0-36.0); MEAN CELL VOLUME 99.5 fl (80-96); MEAN PLT VOLUME 11.6 fl (7.5-11.1); MONO % 8.2 % (3.8-10.2); PLATELET COUNT 126 K/MM3 (134-434); RBC 3.82 M/mm3 (3.60-5.2); RDW 18.3 % (11.6-15.6); WHITE BLOOD COUNT 7.2 K/mm3 (4.0-10.0)
--- NOTE | 2018-08-19 23:42 | PDOC ---
Attending Attestation - HPI HPI: 08/20/18 00:01 The patient is a 62 year old female, with a significant past medical history of HTN, IDDM, DKA, CKD, UTI, diabetic neuropathy, anemia, hypokalcemia, hypernatremia, who presents to the emergency department today, accompanied by daughter, complaining of 1 week of generalized weakness, intermittent chest pain , palpitations, and SOB. She notes that she has not had any chest pain today or yesterday. As per daughter, the patient has been experiencing palpitations, increased urinary frequency, increased thirst, 1 month of urinary incontinence. The patient denies headache and dizziness. Denies fever, chills, nausea, vomit, diarrhea and constipation. Allergies: NKA Social history: None reported PCP: Dr. Morales <Karishma Begum - Last Filed: 08/20/18 00:01> - Resident Resident Name: Cee Dominguez - ED Attending Attestation I have performed the following: I have examined & evaluated the patient, The case was reviewed & discussed with the resident, I agree w/resident's findings & plan, Exceptions are as noted - HPI HPI: 08/19/18 23:34 62 yo female p/w complaint of increased urination and increased thirst. She is IDDM - Physicial Exam PE: 08/19/18 23:42 thin petite 62 female in no acute distress head ncat eyes marino lungs cta b/l cvs [id number] abd no rebound,no guarding ext no edema skin warm and dry neuro alert and conversant,moving all extremities - Medical Decision Making 08/20/18 00:27 acetone +3 positive , pt has DKA and will be admitted. she has been admitted 2 times this year for the same condition pt receiving IVF and insulin 08/20/18 01:55 <Marla Bhat - Last Filed: 08/20/18 01:56> Attestations - Attestations 08/20/18 00:01 Documentation prepared by Karishma Begum, acting as medical lab tech instructor for Marla Bhat MD. <Karishma eBgum - Last Filed: 08/20/18 00:01>
[2018-08-19 23:43] LABS: PLATELET ESTIMATE SLT DECREASE
[2018-08-20 00:11] LABS: ACETONE SERUM POSITIVE LARGE 3+ (NEGATIVE)
[2018-08-20 00:34] LABS: URINE APPEARANCE CLEAR; URINE BILIRUBIN NEGATIVE (<2.0 mg/dL); URINE COLOR STRAW; URINE GLUCOSE (UA) 3+ (NEGATIVE); URINE KETONE 2+ (NEGATIVE); URINE LEUK ESTERASE NEGATIVE (NEGATIVE); URINE NITRITE NEGATIVE (NEGATIVE); URINE PROTEIN NEGATIVE (NEGATIVE); URINE UROBILINOGEN NEGATIVE mg/dL (0.2-1.0)
[2018-08-20 00:39] LABS: ALBUMIN 3.4 g/dl (3.4-5.0); ALK PHOS 78 U/L (45-117); ANION GAP 18 MMOL/L (8-16); BILIRUBIN,TOTAL 0.4 mg/dL (0.2-1); BLOOD UREA NITROGEN 28 mg/dL (7-18); CALCIUM 9.9 mg/dL (8.5-10.1); CHLORIDE 106 mmol/L (98-107); CO2 17 mmol/L (21-32); CREATININE 1.5 mg/dL (0.55-1.3); MAGNESIUM 2.5 mg/dL (1.8-2.4); PHOSPHOROUS 4.4 mg/dL (2.5-4.9); POTASSIUM 5.7 mmol/L (3.5-5.1); SGOT/AST 16 U/L (15-37); SGPT/ALT 23 U/L (13-61); SODIUM 141 mmol/L (136-145); TOT PROT 7.8 g/dl (6.4-8.2)
[2018-08-20 00:42] LABS: GLUCOSE,RANDOM 493 mg/dL (74-106)
[2018-08-20] MEDS ORDERED: INSULIN REGULAR HUMAN 100 UNITS/ML *VIAL IVPUSH ONE ×3 (01:38→01:55)
[2018-08-20] MEDS ORDERED: INSULIN (NOVOLOG) ASPART 100 UNITS/ML 10ML VIAL ONE ×3 (01:41→22:24)
[2018-08-20] MEDS ORDERED: INSULIN REGULAR HUMAN 100 UNITS/ML *VIAL ONE (02:01)
--- NOTE | 2018-08-20 03:03 | PN ---
Teaching Attending Note Name of Resident: Chacha Headley ATTENDING PHYSICIAN STATEMENT I saw and evaluated the patient. I reviewed the resident's note and discussed the case with the resident. I agree with the resident's findings and plan as documented. SUBJECTIVE: Seen and examined; please see resident note for further historical information. Well-known to team from multiple admissions for hyperglycemia. Presents from home with DKA. Has history of noncompliance. She endorses some dizziness and palpitations but no brianne syncope or chest pain. Her DKA did not resolve in the ER so she will be brought to the ICU for further treatment and monitoring. She is concerned about weight loss. Noted that she gave conflicting histories to both the ICU residnet and the floor resident, though for myself she states she takes her insulin. Will be on an insulin drip, DKA expected to resolve soon so can likely be degraded to floor team if she is stable in AM 10 sys ROS done and negative aside from HPI PMH, PSH, Family Hx, Social Hx reviewed Medication list reviewed; pending reconciliation OBJECTIVE: VS, labs, imaging reviewed NAD, AAO, resting comfortably in bed NC AT EOMI PERRLA RRR s1/2 no mgr NT ND +BS Lungs CTAB, w/ sym exp Normal mood, appropriate affect EKG reviewed 2013 stress test reviewed ASSESSMENT AND PLAN: Patient presents with hyperglycemia and elevated anion gap found to be in DKA with intermittent dizziness/palpitations at home 1) DKA, resolving -Insulin drip, DKA protocol. Likely to floor this AM -Diabetic counseling, consider OP nutrition referral. 2) Dizziness and palpitations -No syncope or brianne LOC; hasn't had an echo here since 2016 so will check one and monitor for any arrhythmias on tele. No association with head movement, etc. so likely can hold off on carotid dopplers. -Could be precipitated by the hyperglycemia/DKA 3) Noncompliance -Noted in history; liklely precipitating factor. HPI noted. Needs counseling prior to DC 4) HTN -continue home meds; no issues 5) HLD -Continue home meds; no issues 6) CKD -Cr noted; continue to monitor UOP and lytes 7) Hx recurring UTIs -UA negative; asx 8) CVA (with left residual left weakness) -No changes from baseline; continue home medications.
--- NOTE | 2018-08-20 03:14 | HP ---
CHIEF COMPLAINT:dizziness, urinary frequency PCP: HISTORY OF PRESENT ILLNESS: Patient is a 62 year old female with past medical history of HTN, HLD, IDDM, CKD , Hx of DKA and recurrent UTI, CVA (with left residual left weakness), presented with generalized weakness and dizziness that started about a month ago. This was accompanied by increased urinary frequency and bladder incontinence for 2 weeks. Patient also reported intermittent episodes of palpitations, lasting about 10-15 minutes per episode daily that started about the same time. She denies any fever, chills, headache, nausea, vomiting, chest pain, SOB, abdominal pain, diarrhea, constipation. Patient reported blood sugar at home is at 100-150s, to which she check regularly with her daughter. When asked how much insulin she take, patient reported 10-12 units of Novolog every meals, but is unsure how much Levemir she takes. Of note, last stress test done (2013) revealed mild apical anterior ischemia with normal wall motion and EF 69%. Echo in 2016 showed normal LV/RV size and function, with trace MR and trace TR. ER course was notable for: (1)K 5.7, AG 18, Glu 493, Acetones 3+, BUN/Cr 28/1.5 (2)IV NS x2L, IV insulin 8 units given (3) Recent Travel:denies PAST MEDICAL HISTORY: HTN HLD IDDM CKD Hx of DKA and recurrent UTI CVA (with left residual left weakness) PAST SURGICAL HISTORY: Social History: Smoking:denies Alcohol:denies Drugs: denies Family History: Allergies No Known Allergies Allergy (Verified 07/24/18 12:57) HOME MEDICATIONS: Home Medications Medication Instructions Recorded Gabapentin [Neurontin -] 400 mg PO TID #30 capsule MDD 3 01/02/18 Rosuvastatin [Crestor -] 40 mg PO HS #30 tablet MDD 1 01/02/18 Polyethylene Glycol 3350 [Miralax 17 gm PO BID bottle 05/23/18 119 gm Btl -] Aspirin [ASA -] 81 mg PO DAILY tab.chew 06/20/18 Docusate Sodium [Colace -] 300 mg PO HS #90 capsule 06/20/18 Metformin HCl [Glucophage] 1,000 mg PO BID #60 tablet 06/20/18 Sennosides [Senna -] 2 tab PO HS #60 tablet 06/20/18 Mirtazapine [Remeron -] 7.5 mg PO HS #30 tablet 07/12/18 Polyethylene Glycol 3350 [Miralax 17 gm PO BID #2 bottle 07/12/18 119 gm Btl -] Sitagliptin Phosphate [Januvia] 100 mg PO DAILY #30 tablet 07/12/18 Clindamycin [Cleocin -] 300 mg PO TID #21 capsule 07/27/18 Insulin (Levemir) [Levemir Vial] 10 units SQ HS units 07/27/18 Insulin (Levemir) [Levemir Vial] 28 units SQ AM units 07/27/18 Insulin (Novolog) [Novolog -] 0 units SQ AC #1 ea 07/27/18 REVIEW OF SYSTEMS CONSTITUTIONAL: Absent: fever, chills, diaphoresis, generalized weakness, malaise, loss of appetite, weight change HEENT: Absent: rhinorrhea, nasal congestion, throat pain, throat swelling, difficulty swallowing, mouth swelling, ear pain, eye pain, visual changes CARDIOVASCULAR: Absent: chest pain, syncope, palpitations, irregular heart rate, lightheadedness , peripheral edema RESPIRATORY: Absent: cough, shortness of breath, dyspnea with exertion, orthopnea, wheezing, stridor, hemoptysis GASTROINTESTINAL: Absent: abdominal pain, abdominal distension, nausea, vomiting, diarrhea, constipation, melena, hematochezia GENITOURINARY: Absent: dysuria, frequency, urgency, hesitancy, hematuria, flank pain, genital pain MUSCULOSKELETAL: Absent: myalgia, arthralgia, joint swelling, back pain, neck pain SKIN: Absent: rash, itching, pallor HEMATOLOGIC/IMMUNOLOGIC: Absent: easy bleeding, easy bruising, lymphadenopathy, frequent infections ENDOCRINE: Absent: unexplained weight gain, unexplained weight loss, heat intolerance, cold intolerance NEUROLOGIC: Absent: headache, focal weakness or paresthesias, dizziness, unsteady gait, seizure, mental status changes, bladder or bowel incontinence PSYCHIATRIC: Absent: anxiety, depression, suicidal or homicidal ideation, hallucinations. PHYSICAL EXAMINATION Vital Signs - 24 hr 08/19/18 08/19/18 22:00 23:15 Temperature 98.5 F 99.5 F Pulse Rate 100 H Respiratory 20 Rate Blood Pressure 126/78 O2 Sat by Pulse 97 Oximetry (%) GENERAL: Awake, alert, and fully oriented, in no acute distress. HEAD: Normal with no signs of trauma. EYES: PERRLA, eOMI, sclera anicteric, conjunctiva clear. EARS, NOSE, THROAT: Ears normal,oropharynx clear without exudates. Dry mucous membranes. NECK: Normal range of motion, supple without lymphadenopathy, JVD, or masses. LUNGS: Breath sounds equal, clear to auscultation bilaterally. HEART: Regular rate and rhythm, normal S1 and S2 without murmur, rub or gallop. ABDOMEN: Soft, nontender, not distended, normoactive bowel sounds. MUSCULOSKELETAL: Normal range of motion at all joints. No CVA tenderness. UPPER EXTREMITIES: 2+ pulses, warm, well-perfused. No peripheral edema. LOWER EXTREMITIES: 2+ pulses, warm, well-perfused. No peripheral edema. RLE: 3rd toe amputated NEUROLOGICAL: Cranial nerves II-XII intact. Normal speech. Gait not observed. PSYCHIATRIC: Cooperative. Good eye contact. Appropriate mood and affect. SKIN: Warm, dry, normal turgor, no rashes or lesions. Laboratory Results - last 24 hr 08/19/18 08/19/18 08/19/18 23:04 23:04 23:04 WBC 7.2 RBC 3.82 Hgb 12.3 Hct 38.0 D MCV 99.5 H MCH 32.2 MCHC 32.4 RDW 18.3 H Plt Count 126 L MPV 11.6 H Absolute Neuts (auto) 5.2 Neutrophils % 72.0 Lymphocytes % 18.8 D Monocytes % 8.2 Eosinophils % 0.4 Basophils % 0.6 Nucleated RBC % 0 Platelet Estimate Slt decrease Platelet Comment No clumping noted VBG pH 7.25 L POC VBG pCO2 37.5 L POC VBG pO2 45.4 Mixed VBG HCO3 15.7 L Sodium Cancelled Potassium Cancelled Chloride Cancelled Carbon Dioxide Cancelled Anion Gap Cancelled BUN Cancelled Creatinine Cancelled Creat Clearance w eGFR Cancelled POC Glucometer Random Glucose Cancelled Calcium Cancelled Phosphorus Cancelled Magnesium Cancelled Total Bilirubin Cancelled AST Cancelled ALT Cancelled Alkaline Phosphatase Cancelled Troponin I Cancelled B-Natriuretic Peptide Cancelled Total Protein Cancelled Albumin Cancelled TSH Cancelled Urine Color Urine Appearance Urine pH Ur Specific [place] Urine Protein Urine Glucose (UA) Urine Ketones Urine Blood Urine Nitrite Urine Bilirubin Urine Urobilinogen Ur Leukocyte Esterase Acetone, Qual 08/19/18 08/19/18 08/19/18 23:04 23:40 23:40 WBC RBC Hgb Hct MCV MCH MCHC RDW Plt Count MPV Absolute Neuts (auto) Neutrophils % Lymphocytes % Monocytes % Eosinophils % Basophils % Nucleated RBC % Platelet Estimate Platelet Comment VBG pH POC VBG pCO2 POC VBG pO2 Mixed VBG HCO3 Sodium 141 Potassium 5.7 H Chloride 106 Carbon Dioxide 17 L Anion Gap 18 H BUN 28 H Creatinine 1.5 H Creat Clearance w eGFR 34.96 POC Glucometer Random Glucose 493 H* Calcium 9.9 Phosphorus 4.4 Magnesium 2.5 H Total Bilirubin 0.4 AST 16 ALT 23 Alkaline Phosphatase 78 Troponin I < 0.02 B-Natriuretic Peptide 20.3 Total Protein 7.8 Albumin 3.4 TSH 0.69 Urine Color Urine Appearance Urine pH Ur Specific [place] Urine Protein Urine Glucose (UA) Urine Ketones Urine Blood Urine Nitrite Urine Bilirubin Urine Urobilinogen Ur Leukocyte Esterase Acetone, Qual Cancelled Positive large 3+ H 08/20/18 08/20/18 00:15 01:39 WBC RBC Hgb Hct MCV MCH MCHC RDW Plt Count MPV Absolute Neuts (auto) Neutrophils % Lymphocytes % Monocytes % Eosinophils % Basophils % Nucleated RBC % Platelet Estimate Platelet Comment VBG pH POC VBG pCO2 POC VBG pO2 Mixed VBG HCO3 Sodium Potassium Chloride Carbon Dioxide Anion Gap BUN Creatinine Creat Clearance w eGFR POC Glucometer 449 Random Glucose Calcium Phosphorus Magnesium Total Bilirubin AST ALT Alkaline Phosphatase Troponin I B-Natriuretic Peptide Total Protein Albumin TSH Urine Color Straw Urine Appearance Clear Urine pH 5.0 Ur Specific [place] 1.017 Urine Protein Negative Urine Glucose (UA) 3+ H Urine Ketones 2+ H Urine Blood Negative Urine Nitrite Negative Urine Bilirubin Negative Urine Urobilinogen Negative Ur Leukocyte Esterase Negative Acetone, Qual ASSESSMENT/PLAN: Patient is a 62 year old female with past medical history of HTN, HLD, IDDM, CKD , Hx of DKA and recurrent UTI, CVA (with left residual left weakness), presented with generalized weakness and dizziness that started about a month ago. This was accompanied by increased urinary frequency and bladder incontinence for 2 weeks. #DKA -likely 2/2 medication noncompliance, no clear source of infection -Glucose 493 with 3+ acetone and elevated anion gap (18). -IV NS x1L given at the ED, 8 units of IV insulin given -Repeat bmp AG 17, glu 296 -Will admit to ICU -Start Insulin ggt -IV 1/2NS + 20meq KCl -BMP q3h -BGM q1h -Will shift to D5-1/2 NS when glu <200 -Keep K >4.0 -Continue insulin ggt until anion gap closed. -Once closed, will give SQ insulin, and d/c ggt 2 hours after gap closed. #Palpitations -may be 2/2 DKA, Dehydration. -Last echo 2015 was unremarkable. Will repeat echo. #Hypertension -controlled -continue home medications #Hyperlipidemia -Continue home medication #CKD -BUN/Cr 28/1.5 -will continue to monitor #FEN -IV 1/2NS + 20meq KCl -Hypokalemia, repleted -BMP routine monitoring -NPO #Prophylaxis -Heparin 5000units sq tid #Disposition -full code -ICU for closer monitoring Visit type - Emergency Visit Emergency Visit: Yes ED Registration Date: 08/20/18 Care time: The patient presented to the Emergency Department on the above date and was hospitalized for further evaluation of their emergent condition. - New Patient This patient is new to me today: Yes Date on this admission: 08/20/18 - Critical Care Critical Care patient: Yes Total Critical Care Time (in minutes): 35 Critical Care Statement: The care of this patient involved high complexity decision making to prevent further life threatening deterioration of the patient 's condition and/or to evaluate & treat vital organ system(s) failure or risk of failure.
[2018-08-20 03:36] LABS: ANION GAP 17 MMOL/L (8-16); BLOOD UREA NITROGEN 27 mg/dL (7-18); CALCIUM 9.6 mg/dL (8.5-10.1); CHLORIDE 111 mmol/L (98-107); CO2 17 mmol/L (21-32); CREATININE 1.4 mg/dL (0.55-1.3); GLUCOSE,RANDOM 296 mg/dL (74-106); POTASSIUM 3.9 mmol/L (3.5-5.1); SODIUM 145 mmol/L (136-145)
[2018-08-20] MEDS ORDERED: SODIUM CHLORIDE 0.45%/POT 20 MEQ/1,000 ML INFUS.BAG IV SCH ×2 (04:15→04:46)
[2018-08-20] MEDS ORDERED: SODIUM CHLORIDE 0.45% 1,000 ML IV SCH (04:15)
--- NOTE | 2018-08-20 04:38 | CONSULT ---
Consult Consult Specialty:: ICU Reason for Consultation:: DKA - History of Present Illness Chief Complaint: dizziness and nausea. History of Present Illness: 62 yo somali speaking F with significant PMHx of HTN, HLD, IDDM, CKD, Hx of DKA and recurrent UTI, CVA (with left residual left weakness), presented with 1 month history of progressive generalized weakness and dizziness. She endorses increased urinary frequency and bladder incontinence approx. 2 weeks with dysuria. She states she has also had associated palpitations that are brief in duration 5-10 sec. Patient reported blood sugar at home is at 100-150s, to which she check regularly with her daughter. She states that she takes 10 units of Levemir in morning and sliding scale before meals. She mentions that she has lost approx. 60 lbs in last month, however this is not reflected on weights in EMR. She denies any fever, chills, headache, vomiting, chest pain, SOB, abdominal pain, diarrhea, constipation. ER course was notable for: (1)K 5.7, AG 18, Glu 493, Acetones 3+, Bicarb 17 and pH 7.25 (DKA) (2)IV NS x2L, IV insulin 8 units given sugars came down to 250 but AG remained 17 (3)UA did not show UTI picture. 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) Endocrine: Yes: Diabetes Mellitus - Past Surgical History Past Surgical History: Yes: , Hysterectomy, Tubal Ligation - Alcohol/Substance Use Hx Alcohol Use: No History of Substance Use: reports: None - Smoking History Smoking history: Never smoked Have you smoked in the past 12 months: No - Social History Usual Living Arrangement: With Child ADL: Family Assistance Occupation: retired Place of : Other History of Recent Travel: No Home Medications - Allergies Allergies/Adverse Reactions: Allergies Allergy/AdvReac Type Severity Reaction Status Date / Time No Known Allergies Allergy Verified 07/24/18 12:57 - Home Medications Home Medications: Ambulatory Orders Gabapentin [Neurontin -] 400 mg PO TID #30 capsule MDD 3 07/10/18 Rosuvastatin [Crestor -] 40 mg PO HS #30 tablet MDD 1 01/02/18 Polyethylene Glycol 3350 [Miralax 119 gm Btl -] 17 gm PO BID bottle 05/23/18 Aspirin [ASA -] 81 mg PO DAILY tab.chew 06/20/18 Docusate Sodium [Colace -] 300 mg PO HS #90 capsule 06/20/18 Metformin HCl [Glucophage] 1,000 mg PO BID #60 tablet 06/20/18 Sennosides [Senna -] 2 tab PO HS #60 tablet 06/20/18 Mirtazapine [Remeron -] 7.5 mg PO HS #30 tablet 07/12/18 Polyethylene Glycol 3350 [Miralax 119 gm Btl -] 17 gm PO BID #2 bottle 07/12/18 Sitagliptin Phosphate [Januvia] 100 mg PO DAILY #30 tablet 07/12/18 Clindamycin [Cleocin -] 300 mg PO TID #21 capsule 07/27/18 Insulin (Levemir) [Levemir Vial] 10 units SQ HS units 07/27/18 Insulin (Levemir) [Levemir Vial] 28 units SQ AM units 07/27/18 Insulin (Novolog) [Novolog -] 0 units SQ AC #1 ea 07/27/18 Family Disease History - Family Disease History Family Disease History: Diabetes: Mother (HTN) Review of Systems - Review of Systems Constitutional: reports: Lethargy, Weakness Eyes: reports: No Symptoms HENT: reports: No Symptoms Neck: reports: No Symptoms Cardiovascular: reports: Palpitations Respiratory: reports: No Symptoms Gastrointestinal: reports: Nausea Genitourinary: reports: Dysuria, Frequency Musculoskeletal: reports: No Symptoms Neurological: reports: Dizziness Endocrine: reports: Increased Thirst Physical Exam Vital Signs: Vital Signs Temperature 99.5 F 08/19/18 23:15 Pulse Rate 100 H 08/19/18 22:00 Respiratory Rate 20 08/19/18 22:00 Blood Pressure 126/78 08/19/18 22:00 O2 Sat by Pulse Oximetry (%) 97 08/19/18 22:00 Constitutional: Yes: No Distress, Calm Eyes: Yes: Conjunctiva Clear, EOM Intact HENT: Yes: Atraumatic, Normocephalic Neck: Yes: Supple, Trachea Midline Cardiovascular: Yes: Tachycardia, S1, S2. No: JVD, Gallop, Murmur Respiratory: Yes: Regular, CTA Bilaterally Gastrointestinal: Yes: Normal Bowel Sounds, Soft. No: Distention Breast(s): No: Dimpling, Discharge from Nipple, Nipple Inversion Extremities: Yes: Amputation (partial autoamputation of 3-5 toes on right foot.) Edema: No Peripheral Pulses WNL: Yes Neurological: Yes: Alert, Unsteady Gait, Weakness Psychiatric: Yes: Alert Labs: CBC, BMP 08/19/18 23:04 08/20/18 03:02 Imaging - Results Chest X-ray: Image Reviewed (no acute pulmonary pathology.) Assessment/Plan A: 62 yo somali speaking F with significant PMHx of HTN, HLD, IDDM, CKD, Hx of DKA and recurrent UTI, CVA (with left residual left weakness), presented with 1 month history of progressive generalized weakness and dizziness admitted to ICU for further management of DKA. Plan: NEURO: * H/O CVA with some residual left sided weakness. * Awake and alert * Will continue to monitor for change in mental status. * Continue Mirtazapine HS CV: * h/o HTN and HLD * Echo done in 2016 - showed normal LV size and function( repeat ordered) * BP WNL will continue to monitor. * IVF - maintain MAP >65 * continue statin and ASA PULM: * No active issues * supplemental O2 PRN * maintain SpO2 >90% ENDO: * Currently in DKA secondary to non compliance ( no clear source of infection) * hold all oral hyperglycemic meds * Start Insulin ggt * IV 1/2NS + 20meq KCl @150ml/hr * BMP q3h * BGM q1h * Will shift to D5-1/2 NS when glu <200 * Keep K >4.0 * Continue insulin ggt until anion gap closed. * Once closed, will give SQ insulin, and d/c ggt 2 hours after gap closed. GI: * NPO for now * Zofran PRN nausea. RENAL: * ALEX on CKD 2/2 volume depletion. * baseline Cr. 0.9 now 1.5 * IVF with 1/2NS * follow K+ * Will repeat BMP Q3H FEN: * 1/2 NS with 20 meq of potassium @ 150ml/hr * BMP Q3H to monitor e-lytes * NPO for now until AG closes. DISPO: Continue to monitor in ICU FULL CODE>
[2018-08-20] MEDS ORDERED: INSULIN REGULAR 100 UNITS in SODIUM CHLORIDE 99 ML IVPB SCH (04:45)
[2018-08-20] MEDS ORDERED: HEPARIN NA (PORCINE) 5,000 UNITS/ML 1ML VIAL ONE (05:45)
[2018-08-20] MEDS: HEPARIN NA (PORCINE) 5,000 UNITS/ML 1ML VIAL SQ SCH ×3 (05:46→22:26)
[2018-08-20 06:33] LABS: BASO % 0.6 % (0-2.0); EOS % 0.6 % (0-4.5); HEMATOCRIT 28.8 % (32.4-45.2); HEMOGLOBIN 9.5 GM/dL (10.7-15.3); MCH 31.6 pg (25.7-33.7); MEAN CELL VOLUME 95.9 fl (80-96); MEAN PLT VOLUME 11.6 fl (7.5-11.1); MONO % 9.6 % (3.8-10.2); NEUT % 69.2 % (42.8-82.8); PLATELET COUNT 129 K/MM3 (134-434); RDW 17.6 % (11.6-15.6); WHITE BLOOD COUNT 5.4 K/mm3 (4.0-10.0)
[2018-08-20 07:36] LABS: ALBUMIN 2.6 g/dl (3.4-5.0); ALK PHOS 56 U/L (45-117); ANION GAP 14 MMOL/L (8-16); BILIRUBIN,TOTAL 0.3 mg/dL (0.2-1); BLOOD UREA NITROGEN 22 mg/dL (7-18); CALCIUM 7.8 mg/dL (8.5-10.1); CHLORIDE 117 mmol/L (98-107); CO2 17 mmol/L (21-32); GLUCOSE,RANDOM 186 mg/dL (74-106); MAGNESIUM 1.7 mg/dL (1.8-2.4); PHOSPHOROUS 1.7 mg/dL (2.5-4.9); POTASSIUM 3.4 mmol/L (3.5-5.1); SGOT/AST 8 U/L (15-37); SGPT/ALT 16 U/L (13-61); SODIUM 148 mmol/L (136-145); TOT PROT 5.8 g/dl (6.4-8.2)
[2018-08-20] MEDS ORDERED: KCL 10 MEQ IVPB 10 MEQ/100 ML INFUS.BAG IVPB ONE (08:26)
[2018-08-20] MEDS ORDERED: KCL 10 MEQ IVPB 10 MEQ/100 ML INFUS.BAG IVPB SCH (08:50)
[2018-08-20 09:22] LABS: ANION GAP 10 MMOL/L (8-16); BLOOD UREA NITROGEN 23 mg/dL (7-18); CALCIUM 9.3 mg/dL (8.5-10.1); CHLORIDE 114 mmol/L (98-107); CO2 24 mmol/L (21-32); CREATININE 1.3 mg/dL (0.55-1.3); GLUCOSE,RANDOM 113 mg/dL (74-106); POTASSIUM 3.8 mmol/L (3.5-5.1); SODIUM 148 mmol/L (136-145)
--- NOTE | 2018-08-20 09:42 | EKG ---
Test Reason : Blood Pressure : / mmHG Vent. Rate : 095 BPM Atrial Rate : 095 BPM P-R Int : 146 ms QRS Dur : 086 ms QT Int : 348 ms P-R-T Axes : 059 002 052 degrees QTc Int : 437 ms NORMAL SINUS RHYTHM NORMAL ECG WHEN COMPARED WITH ECG OF 08-JUL-2018 19:34, T WAVE VARIATION Confirmed by LAN SALAS MD ([id number]) on 08/20/2018 9:41:48 AM Referred By: Confirmed By:LAN SALAS MD
[2018-08-20 11:48] LABS: ALBUMIN 3.3 g/dl (3.4-5.0); ALK PHOS 63 U/L (45-117); ANION GAP 11 MMOL/L (8-16); BILIRUBIN,TOTAL 0.4 mg/dL (0.2-1); BLOOD UREA NITROGEN 21 mg/dL (7-18); CALCIUM 9.4 mg/dL (8.5-10.1); CHLORIDE 111 mmol/L (98-107); CO2 23 mmol/L (21-32); CREATININE 1.2 mg/dL (0.55-1.3); GLUCOSE,RANDOM 142 mg/dL (74-106); POTASSIUM 4.9 mmol/L (3.5-5.1); SGOT/AST 13 U/L (15-37); SGPT/ALT 18 U/L (13-61); SODIUM 146 mmol/L (136-145); TOT PROT 7.1 g/dl (6.4-8.2)
[2018-08-20 13:14] LABS: ANION GAP 12 MMOL/L (8-16); BLOOD UREA NITROGEN 19 mg/dL (7-18); CALCIUM 8.6 mg/dL (8.5-10.1); CHLORIDE 112 mmol/L (98-107); CO2 20 mmol/L (21-32); CREATININE 1.1 mg/dL (0.55-1.3); GLUCOSE,RANDOM 170 mg/dL (74-106); POTASSIUM 4.9 mmol/L (3.5-5.1); SODIUM 144 mmol/L (136-145)
[2018-08-20] MEDS ORDERED: MAGNESIUM SULF 50% (8.12 MEQ/2 ML-1 GM VIAL) IVPB ONE (15:00)
--- NOTE | 2018-08-20 15:04 | PN ---
Progress Note, Physician Chief Complaint: patient awake alert bgm 138 insulin drip stopped potassium 4.9 change ivf diet ordered - Current Medication List Current Medications: Active Medications Chlorhexidine Gluconate (Hibiclens For Decolonization -) 1 applic TP HS [facility] Heparin Sodium (Porcine) (Heparin -) 5,000 unit SQ TID [facility] Last Admin: 08/20/18 14:40 Dose: 5,000 unit Potassium Chloride/Sodium Chloride (1/2ns+20meq Kcl) 20 meq in 1,000 mls @ 150 mls/hr IV ASDIR [facility] Last Admin: 08/20/18 05:43 Dose: 150 mls/hr Insulin Aspart (Novolog Vial Sliding Scale -) 1 vial SQ ACHS [facility]; Protocol Magnesium Sulfate (Magnesium Sulfate) 1 gm IVPB ONCE ONE Stop: 08/20/18 15:01 Mupirocin (Bactroban Ointment (For Decolonization) -) 1 applic NS BID [facility] Stop: 08/25/18 09:59 - Objective Vital Signs: Vital Signs Temperature 98.7 F 08/20/18 09:25 Pulse Rate 98 H 08/20/18 09:25 Respiratory Rate 20 08/20/18 09:25 Blood Pressure 122/71 08/20/18 09:25 O2 Sat by Pulse Oximetry (%) 97 08/19/18 22:00 Constitutional: Yes: Calm Cardiovascular: Yes: Regular Rate and Rhythm, S1, S2 Respiratory: Yes: CTA Bilaterally Gastrointestinal: Yes: Normal Bowel Sounds, Soft, Other (lower quadrant tenderness) Labs: CBC, BMP 08/20/18 05:20 08/20/18 12:43 Problem List - Problems (1) ALEX (acute kidney injury) Assessment/Plan: labs much improved ivf Code(s): N17.9 - ACUTE KIDNEY FAILURE, UNSPECIFIED (2) Diabetic ketoacidosis Assessment/Plan: off insulin drip bgm better sliding scale levemir hba1c 15.2 endocrine januvia om hold for now electrolytes repleted Code(s): E13.10 - OTH DIABETES MELLITUS WITH KETOACIDOSIS WITHOUT COMA (3) Anemia Assessment/Plan: from 13 to 9 i thin previous one when she was dehydrated will monitor iron panel Code(s): D64.9 - ANEMIA, UNSPECIFIED
[2018-08-20] MEDS ORDERED: MAGNESIUM 1GM/D5W - 1 GM/100 ML IVPB IVPB ONE (15:33)
[2018-08-20] MEDS: SODIUM CHLORIDE 0.45% 1,000 ML IV SCH (15:42)
--- NOTE | 2018-08-20 15:42 | ECHO ---
Name: BAKARI ORTIZ Exam:Adult Echocardiogram Study Date: 08/20/2018 11:35 AM Age: 62 yrs Reason For Study: Palpitations Height: 62 in Weight: 120 lb BSA: 1.5 m2 MMode/2D Measurements & Calculations IVSd: 1.4 cm Ao root diam: 2.9 cm LVIDd: 2.9 cm LA dimension: 2.2 cm LVIDs: 2.1 cm LVPWd: 0.84 cm EDV(Teich): 32.2 ml LAV (MOD-bp): 40.5 ml ESV(Teich): 14.6 ml Doppler Measurements & Calculations MV E max rafal: 69.8 cm/sec TR max rafal: 261.7 cm/sec MV A max rafal: 76.6 cm/sec TR max P.5 mmHg MV E/A: 0.91 MV dec time: 0.13 sec Med Peak E' Rafal: 5.1 cm/sec PI Vmax: 143.9 cm/sec Med E/e': 13.7 Lat Peak E' Rafal: 8.3 cm/sec Lat E/e': 8.4 Procedure A complete two-dimensional transthoracic echocardiogram was performed (2D, M-mode, Doppler and color flow Doppler). Left Ventricle The left ventricle is normal in size. There is moderate concentric left ventricular hypertrophy. Left ventricular systolic function is normal. Ejection Fraction = 55-60%. Grade I diastolic dysfunction, ( abnormal relaxation pattern). Ratio E/E'= 14. No regional wall motion abnormalities noted. Right Ventricle The right ventricle is normal size. The right ventricular systolic function is normal. Atria The left atrial size is normal. LA volume index is 26 ml/m2. Right atrial size is normal. Mitral Valve The mitral valve is normal in structure and function. There is no mitral regurgitation noted. Tricuspid Valve The tricuspid valve is normal in structure and function. There is mild tricuspid regurgitation. Pulmo nary artery systolic pressure is at least 35 mmHg assuming RA pressure of 3 mmHg. Aortic Valve The aortic valve is normal in structure and function. No aortic regurgitation is present. Pulmonic Valve The pulmonic valve is not well visualized. Mild pulmonic valvular regurgitation. Great Vessels The aortic root is normal size. Pericardium/Pleura There is no pericardial effusion. Interpretation Summary The left ventricle is normal in size. There is moderate concentric left ventricular hypertrophy. Left ventricular systolic function is normal. No regional wall motion abnormalities noted. Ejection Fraction = 55-60%. Grade I diastolic dysfunction, (abnormal relaxation pattern). Ratio E/E'= 14 The right ventricular systolic function is normal. The left atrial size is normal. Right atrial size is normal. There is mild tricuspid regurgitation. Pulmonary artery systolic pressure is at least 35 mmHg assuming RA pressure of 3 mmHg Mild pulmonic valvular regurgitation. There is no pericardial effusion. Previous study is not available for comparison Raj Walden MD 08/20/2018 03:41 PM
[2018-08-20] MEDS: INSULIN SLIDING SCALE (NOVOLOG) 1 VIAL SQ SCH ×2 (18:16→22:27)
[2018-08-20 19:22] LABS: ANION GAP 18 MMOL/L (8-16); BLOOD UREA NITROGEN 21 mg/dL (7-18); CALCIUM 8.7 mg/dL (8.5-10.1); CHLORIDE 107 mmol/L (98-107); CO2 16 mmol/L (21-32); CREATININE 1.4 mg/dL (0.55-1.3); POTASSIUM 5.1 mmol/L (3.5-5.1); SODIUM 141 mmol/L (136-145)
[2018-08-20 19:23] LABS: GLUCOSE,RANDOM 341 mg/dL (74-106)
[2018-08-20] MEDS ORDERED: CHLORHEXIDINE GLUCONATE 4% CLEANSER FOR DECOLONIZATION TP SCH (22:00)
[2018-08-20] MEDS ORDERED: INSULIN (LEVEMIR) 100 UNITS/ML UNITS SQ SCH (22:00)
[2018-08-20] MEDS ORDERED: INSULIN (LEVEMIR) 100 UNITS/ML UNITS SQ ONE (22:24)
[2018-08-20 22:46] LABS: ANION GAP 12 MMOL/L (8-16); BLOOD UREA NITROGEN 25 mg/dL (7-18); CALCIUM 8.5 mg/dL (8.5-10.1); CHLORIDE 104 mmol/L (98-107); CO2 22 mmol/L (21-32); CREATININE 1.4 mg/dL (0.55-1.3); POTASSIUM 4.5 mmol/L (3.5-5.1); SODIUM 138 mmol/L (136-145)
[2018-08-20 22:52] LABS: GLUCOSE,RANDOM 368 mg/dL (74-106)
[2018-08-21] MEDS: HEPARIN NA (PORCINE) 5,000 UNITS/ML 1ML VIAL SQ SCH ×3 (06:58→22:37)
[2018-08-21] MEDS: INSULIN SLIDING SCALE (NOVOLOG) 1 VIAL SQ SCH ×4 (06:58→22:32)
[2018-08-21] MEDS ORDERED: INSULIN (NOVOLOG MIX 70/30) 100 UNITS/ML MDV SQ ONE (07:00)
[2018-08-21 07:24] LABS: BASO % 0.7 % (0-2.0); EOS % 1.5 % (0-4.5); HEMATOCRIT 31.4 % (32.4-45.2); HEMOGLOBIN 10.5 GM/dL (10.7-15.3); LYMPH % 31.7 % (8-40); MCH 32.1 pg (25.7-33.7); MCHC 33.5 g/dl (32.0-36.0); MEAN CELL VOLUME 95.9 fl (80-96); MEAN PLT VOLUME 11.3 fl (7.5-11.1); MONO % 9.3 % (3.8-10.2); NEUT % 56.8 % (42.8-82.8); PLATELET COUNT 124 K/MM3 (134-434); RBC 3.28 M/mm3 (3.60-5.2); RDW 17.6 % (11.6-15.6); WHITE BLOOD COUNT 4.4 K/mm3 (4.0-10.0)
[2018-08-21 07:58] LABS: ALBUMIN 2.7 g/dl (3.4-5.0); ALK PHOS 60 U/L (45-117); ANION GAP 8 MMOL/L (8-16); BILIRUBIN,TOTAL 0.4 mg/dL (0.2-1); BLOOD UREA NITROGEN 20 mg/dL (7-18); CALCIUM 8.3 mg/dL (8.5-10.1); CHLORIDE 110 mmol/L (98-107); CO2 23 mmol/L (21-32); CREATININE 1.2 mg/dL (0.55-1.3); GLUCOSE,RANDOM 280 mg/dL (74-106); POTASSIUM 4.2 mmol/L (3.5-5.1); SGOT/AST 16 U/L (15-37); SGPT/ALT 17 U/L (13-61); SODIUM 141 mmol/L (136-145); TOT PROT 6.2 g/dl (6.4-8.2)
[2018-08-21 08:03] LABS: CHOLESTEROL 152 mg/dL (50-200); HDL CHOLESTEROL 69 mg/dL (40-60); TRIGLYCERIDES 139 mg/dL (0-150)
[2018-08-21] MEDS ORDERED: INSULIN (LEVEMIR) 100 UNITS/ML UNITS SQ SCH (11:22)
[2018-08-21] MEDS ORDERED: INSULIN (NOVOLOG) ASPART 100 UNITS/ML 10ML VIAL ONE ×2 (11:43→21:02)
[2018-08-21] MEDS ORDERED: INSULIN (LEVEMIR) 100 UNITS/ML UNITS SQ ONE (12:00)
--- NOTE | 2018-08-21 12:05 | PN ---
Progress Note, Physician Chief Complaint: awake alert bgm noted 300is today - Current Medication List Current Medications: Active Medications Chlorhexidine Gluconate (Hibiclens For Decolonization -) 1 applic TP HS [facility]UL[facility]NA Heparin Sodium (Porcine) (Heparin -) 5,000 unit SQ TID [facility] Last Admin: 08/21/18 06:58 Dose: 5,000 unit Sodium Chloride (1/2 Normal Saline) 1,000 mls @ 83 mls/hr IV ASDIR [facility] Last Admin: 08/20/18 15:42 Dose: 83 mls/hr Insulin Aspart (Novolog Vial Sliding Scale -) 1 vial SQ ACHS [facility]; Protocol Last Admin: 08/21/18 11:50 Dose: 6 units Insulin Detemir (Levemir Vial) 10 units SQ AM [facility] Insulin Detemir (Levemir Vial) 15 units SQ HS [facility] Insulin Detemir (Levemir Vial) 10 units SQ ONCE ONE Stop: 08/21/18 12:01 Mupirocin (Bactroban Ointment (For Decolonization) -) 1 applic NS BID [facility] Stop: 08/25/18 09:59 - Objective Vital Signs: Vital Signs Temperature 98.2 F 08/21/18 07:30 Pulse Rate 86 08/21/18 07:30 Respiratory Rate 20 08/21/18 07:30 Blood Pressure 122/77 08/21/18 07:30 O2 Sat by Pulse Oximetry (%) 97 08/19/18 22:00 Constitutional: Yes: Calm Cardiovascular: Yes: Regular Rate and Rhythm, S1, S2 Respiratory: Yes: CTA Bilaterally Gastrointestinal: Yes: Normal Bowel Sounds, Soft Edema: No Neurological: Yes: Alert, Oriented Labs: CBC, BMP 08/21/18 05:30 08/21/18 06:30 Problem List - Problems (1) ALEX (acute kidney injury) Assessment/Plan: labs much improved ivf Code(s): N17.9 - ACUTE KIDNEY FAILURE, UNSPECIFIED (2) Diabetic ketoacidosis Assessment/Plan: resolved sliding scale levemir bid hba1c 15.2 endocrine consult pending januvia 50mg electrolytes repleted Code(s): E13.10 - OTH DIABETES MELLITUS WITH KETOACIDOSIS WITHOUT COMA (3) Anemia Assessment/Plan: will monitor iron panel Code(s): D64.9 - ANEMIA, UNSPECIFIED Assessment/Plan monitor bgm awaitng endocrine consult PT
[2018-08-21] MEDS: SODIUM CHLORIDE 0.45% 1,000 ML IV SCH (17:34)
[2018-08-21] MEDS: MUPIROCIN 2% TOPICAL OINTMENT FOR DECOLONIZATION NS SCH ×2 (18:52→19:22)
[2018-08-22] MEDS ORDERED: INSULIN (NOVOLOG) ASPART 100 UNITS/ML 10ML VIAL SQ ONE (00:09)
--- NOTE | 2018-08-22 00:35 | CONSULT ---
Consult Consult Specialty:: endocrine Referred by:: roxana grigsby md. Reason for Consultation:: iddm - History of Present Illness Chief Complaint: high sugars frequent urination History of Present Illness: 62 year old female, with a significant past medical history of IDDM,DKA,HTN, CKD , UTI, diabetic neuropathy, anemia, hypokalcemia, hypernatremia, who present complaining of 1 week of generalized weakness, intermittent chest pain, palpitations, and SOB. She has many nonspecific complaint generalized weakness, increased urinary frequency, increased thirst, she is non compliant with insulin dosing and diet plan. 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) Endocrine: Yes: Diabetes Mellitus - Past Surgical History Past Surgical History: Yes: , Hysterectomy, Tubal Ligation - Alcohol/Substance Use Hx Alcohol Use: No History of Substance Use: reports: None - Smoking History Smoking history: Never smoked Have you smoked in the past 12 months: No - Social History Usual Living Arrangement: With Child ADL: Family Assistance Occupation: retired History of Recent Travel: No Home Medications - Allergies Allergies/Adverse Reactions: Allergies Allergy/AdvReac Type Severity Reaction Status Date / Time No Known Allergies Allergy Verified 07/24/18 12:57 - Home Medications Home Medications: Ambulatory Orders Gabapentin [Neurontin -] 400 mg PO TID #30 capsule MDD 3 01/02/18 Rosuvastatin [Crestor -] 40 mg PO HS #30 tablet MDD 1 01/02/18 Polyethylene Glycol 3350 [Miralax 119 gm Btl -] 17 gm PO BID bottle 05/23/18 Aspirin [ASA -] 81 mg PO DAILY tab.chew 06/20/18 Docusate Sodium [Colace -] 300 mg PO HS #90 capsule 06/20/18 Metformin HCl [Glucophage] 1,000 mg PO BID #60 tablet 06/20/18 Sennosides [Senna -] 2 tab PO HS #60 tablet 06/20/18 Mirtazapine [Remeron -] 7.5 mg PO HS #30 tablet 07/12/18 Polyethylene Glycol 3350 [Miralax 119 gm Btl -] 17 gm PO BID #2 bottle 07/12/18 Sitagliptin Phosphate [Januvia] 100 mg PO DAILY #30 tablet 07/12/18 Clindamycin [Cleocin -] 300 mg PO TID #21 capsule 07/27/18 Insulin (Levemir) [Levemir Vial] 10 units SQ HS units 07/27/18 Insulin (Levemir) [Levemir Vial] 28 units SQ AM units 07/27/18 Insulin (Novolog) [Novolog -] 0 units SQ AC #1 ea 07/27/18 Family Disease History - Family Disease History Family Disease History: Diabetes: Mother (HTN) Review of Systems - Review of Systems Constitutional: reports: Lethargy, Weakness Eyes: reports: Blurred Vision HENT: reports: No Symptoms Neck: reports: No Symptoms Cardiovascular: reports: No Symptoms Respiratory: reports: No Symptoms Gastrointestinal: reports: Nausea Genitourinary: reports: Frequency, Incontinence Breasts: reports: No Symptoms Reported Musculoskeletal: reports: No Symptoms Integumentary: reports: No Symptoms Neurological: reports: Weakness Endocrine: reports: Unexplained Weight Loss Physical Exam Vital Signs: Vital Signs Temperature 98.2 F 08/21/18 22:00 Pulse Rate 97 H 08/21/18 22:00 Respiratory Rate 20 08/21/18 22:00 Blood Pressure 116/60 08/21/18 22:00 O2 Sat by Pulse Oximetry (%) 97 08/21/18 09:00 Constitutional: Yes: Calm Eyes: Yes: EOM Intact HENT: Yes: Normocephalic Neck: Yes: Trachea Midline Cardiovascular: Yes: Regular Rate and Rhythm Respiratory: Yes: CTA Bilaterally Gastrointestinal: Yes: Normal Bowel Sounds Renal/: Yes: Incontinence, Polyuria Extremities: Yes: WNL Neurological: Yes: Alert, Oriented Labs: CBC, BMP 08/21/18 05:30 08/21/18 06:30 Problem List - Problems (1) ALEX (acute kidney injury) Code(s): N17.9 - ACUTE KIDNEY FAILURE, UNSPECIFIED (2) Diabetic ketoacidosis Code(s): E13.10 - OTH DIABETES MELLITUS WITH KETOACIDOSIS WITHOUT COMA (3) Abdominal pain Code(s): R10.9 - UNSPECIFIED ABDOMINAL PAIN (4) Abscesses of both axillae Code(s): L02.411 - CUTANEOUS ABSCESS OF RIGHT AXILLA; L02.412 - CUTANEOUS ABSCESS OF LEFT AXILLA (5) Acute renal failure Code(s): N17.9 - ACUTE KIDNEY FAILURE, UNSPECIFIED (6) Anemia Code(s): D64.9 - ANEMIA, UNSPECIFIED (7) CKD (chronic kidney disease) Code(s): N18.9 - CHRONIC KIDNEY DISEASE, UNSPECIFIED Assessment/Plan Current Active Problems ALEX (acute kidney injury) (Acute) Diabetic ketoacidosis (Acute) uncontrolled iddm poor compliance family support polyuria polydipsia Abnormal Lab Results 08/21/18 08/21/18 08/21/18 05:30 06:30 06:30 RBC 3.28 L Hgb 10.5 L Hct 31.4 L RDW 17.6 H Plt Count 124 L MPV 11.3 H Chloride 110 H BUN 20 H Random Glucose 280 H Calcium 8.3 L Total Protein 6.2 L Albumin 2.7 L HDL Cholesterol 69 H Laboratory Results - last 24 hr 08/21/18 08/21/18 08/21/18 05:30 06:30 06:30 WBC 4.4 RBC 3.28 L Hgb 10.5 L Hct 31.4 L MCV 95.9 MCH 32.1 MCHC 33.5 RDW 17.6 H Plt Count 124 L MPV 11.3 H Absolute Neuts (auto) 2.5 Neutrophils % 56.8 Lymphocytes % 31.7 D Monocytes % 9.3 Eosinophils % 1.5 D Basophils % 0.7 Nucleated RBC % 0 Sodium 141 Potassium 4.2 Chloride 110 H Carbon Dioxide 23 Anion Gap 8 BUN 20 H Creatinine 1.2 Creat Clearance w eGFR 45.23 POC Glucometer Random Glucose 280 H Calcium 8.3 L Magnesium 2.0 Ferritin Total Bilirubin 0.4 AST 16 ALT 17 Alkaline Phosphatase 60 Total Protein 6.2 L Albumin 2.7 L Triglycerides 139 Cholesterol 152 Total LDL Cholesterol 63 HDL Cholesterol 69 H 08/21/18 08/21/18 08/21/18 06:30 06:53 11:38 WBC RBC Hgb Hct MCV MCH MCHC RDW Plt Count MPV Absolute Neuts (auto) Neutrophils % Lymphocytes % Monocytes % Eosinophils % Basophils % Nucleated RBC % Sodium Potassium Chloride Carbon Dioxide Anion Gap BUN Creatinine Creat Clearance w eGFR POC Glucometer 266 328 Random Glucose Calcium Magnesium Ferritin 31.9 Total Bilirubin AST ALT Alkaline Phosphatase Total Protein Albumin Triglycerides Cholesterol Total LDL Cholesterol HDL Cholesterol 08/21/18 08/21/18 08/21/18 17:22 22:29 23:52 WBC RBC Hgb Hct MCV MCH MCHC RDW Plt Count MPV Absolute Neuts (auto) Neutrophils % Lymphocytes % Monocytes % Eosinophils % Basophils % Nucleated RBC % Sodium Potassium Chloride Carbon Dioxide Anion Gap BUN Creatinine Creat Clearance w eGFR POC Glucometer 342 431 432 Random Glucose Calcium Magnesium Ferritin Total Bilirubin AST ALT Alkaline Phosphatase Total Protein Albumin Triglycerides Cholesterol Total LDL Cholesterol HDL Cholesterol plan; bgm qid novolog insulin levemir 20 units am levemir 10 hs nutrition consult
[2018-08-22 04:14] LABS: SERUM IRON SATURATION 84 % (15-55); TOTAL IRON BINDING CAPACITY 223 ug/dL (250-450); UIBC 36 ug/dL (118-369)
[2018-08-22] MEDS ORDERED: PT OWN MED DRAWER 7, Y5N ONE (05:11)
[2018-08-22] MEDS: HEPARIN NA (PORCINE) 5,000 UNITS/ML 1ML VIAL SQ SCH ×2 (06:35→13:57)
[2018-08-22] MEDS: INSULIN SLIDING SCALE (NOVOLOG) 1 VIAL SQ SCH ×2 (06:40→12:26)
[2018-08-22] MEDS ORDERED: sitaGLIPtin PHOSPHATE 50 MG TABLET PO SCH (07:00)
[2018-08-22] MEDS ORDERED: INSULIN (LEVEMIR) 100 UNITS/ML UNITS SQ SCH ×2 (07:00)
[2018-08-22 08:08] LABS: ALBUMIN 2.5 g/dl (3.4-5.0); ALK PHOS 56 U/L (45-117); ANION GAP 6 MMOL/L (8-16); BILIRUBIN,TOTAL 0.3 mg/dL (0.2-1); BLOOD UREA NITROGEN 16 mg/dL (7-18); CALCIUM 8.6 mg/dL (8.5-10.1); CHLORIDE 112 mmol/L (98-107); CO2 25 mmol/L (21-32); CREATININE 0.8 mg/dL (0.55-1.3); GLUCOSE,RANDOM 140 mg/dL (74-106); SGOT/AST 18 U/L (15-37); SGPT/ALT 16 U/L (13-61); SODIUM 143 mmol/L (136-145); TOT PROT 5.7 g/dl (6.4-8.2)
--- NOTE | 2018-08-22 11:11 | PN ---
Progress Note, Physician Chief Complaint: Hyperglycemia Dehydration 2/2 to hyperglycemia History of Present Illness: NAD Seen by Endocrinology Extremely non compliant outpatient 5th admission from past 6 months for same diagnosis - Current Medication List Current Medications: Active Medications Heparin Sodium (Porcine) (Heparin -) 5,000 unit SQ TID [facility] Last Admin: 08/22/18 06:35 Dose: 5,000 unit Sodium Chloride (1/2 Normal Saline) 1,000 mls @ 83 mls/hr IV ASDIR [facility] Last Admin: 08/21/18 17:34 Dose: 83 mls/hr Insulin Aspart (Novolog Vial Sliding Scale -) 1 vial SQ ACHS [facility]; Protocol Last Admin: 08/22/18 06:40 Dose: Not Given Insulin Detemir (Levemir Vial) 15 units SQ HS [facility] Last Admin: 08/21/18 22:31 Dose: 15 unit Insulin Detemir (Levemir Vial) 20 units SQ AM [facility] Last Admin: 08/22/18 06:34 Dose: 20 unit Sitagliptin Phosphate (Januvia -) 50 mg PO DAILY@0700 [facility] Last Admin: 08/22/18 06:33 Dose: 50 mg - Objective Vital Signs: Vital Signs Temperature 97.9 F 08/22/18 06:00 Pulse Rate 101 H 08/22/18 06:00 Respiratory Rate 20 08/22/18 06:00 Blood Pressure 119/67 08/22/18 06:00 O2 Sat by Pulse Oximetry (%) 97 08/21/18 21:00 Constitutional: Yes: No Distress, Anxious, Thin Cardiovascular: Yes: Regular Rate and Rhythm Respiratory: Yes: Regular Gastrointestinal: Yes: Normal Bowel Sounds, Soft Musculoskeletal: Yes: WNL Extremities: Yes: WNL Edema: No Peripheral Pulses WNL: Yes Neurological: Yes: Alert, Oriented Psychiatric: Yes: Alert, Oriented Labs: CBC, BMP 08/21/18 05:30 08/22/18 06:50 Problem List - Problems (1) ALEX (acute kidney injury) Assessment/Plan: -resolved with IVF -Encouraged PO hydration Code(s): N17.9 - ACUTE KIDNEY FAILURE, UNSPECIFIED (2) Diabetic ketoacidosis Assessment/Plan: -Seen by Construction Superintendent -[place] -Novolog sliding scale -Levemir 20 U in AM and 15 U HS upon discharge due to dietary non compliance Code(s): E13.10 - OTH DIABETES MELLITUS WITH KETOACIDOSIS WITHOUT COMA (3) Anemia Assessment/Plan: -Anemia of chronic disease -Worked up in the past Code(s): D64.9 - ANEMIA, UNSPECIFIED Assessment/Plan See problem list Self ambulatory
--- NOTE | 2018-08-22 11:16 | DS ---
Physical Examination Vital Signs: Vital Signs Temperature 97.9 F 08/22/18 06:00 Pulse Rate 101 H 08/22/18 06:00 Respiratory Rate 20 08/22/18 06:00 Blood Pressure 119/67 08/22/18 06:00 O2 Sat by Pulse Oximetry (%) 97 08/21/18 21:00 Findings/Remarks: Patient is a 62 year old female with past medical history of HTN, HLD, IDDM, CKD , Hx of DKA and recurrent UTI, CVA (with left residual left weakness), presented with generalized weakness and dizziness that started about a month ago. This was accompanied by increased urinary frequency and bladder incontinence for 2 weeks. Patient also reported intermittent episodes of palpitations, lasting about 10-15 minutes per episode daily that started about the same time. She denies any fever, chills, headache, nausea, vomiting, chest pain, SOB, abdominal pain, diarrhea, constipation. Patient reported blood sugar at home is at 100-150s, to which she check regularly with her daughter. When asked how much insulin she take, patient reported 10-12 units of Novolog every meals, but is unsure how much Levemir she takes. Of note, last stress test done (2013) revealed mild apical anterior ischemia with normal wall motion and EF 69%. Echo in 2016 showed normal LV/RV size and function, with trace MR and trace TR. Constitutional: Yes: No Distress, Calm, Thin Cardiovascular: Yes: Regular Rate and Rhythm Respiratory: Yes: Regular Gastrointestinal: Yes: Normal Bowel Sounds, Soft Musculoskeletal: Yes: WNL Extremities: Yes: WNL Edema: No Peripheral Pulses WNL: Yes Neurological: Yes: Alert, Oriented Psychiatric: Yes: Alert, Oriented Labs: CBC, BMP 08/21/18 05:30 08/22/18 06:50 Discharge Summary Reason For Visit: ACUTE KIDNEY INJURY Current Active Problems ALEX (acute kidney injury) (Acute) Diabetic ketoacidosis (Acute) Hospital Course: Laboratory Last Values WBC 4.4 K/mm3 (4.0-10.0) 08/21/18 05:30 RBC 3.28 M/mm3 (3.60-5.2) L 08/21/18 05:30 Hgb 10.5 GM/dL (10.7-15.3) L 08/21/18 05:30 Hct 31.4 % (32.4-45.2) L 08/21/18 05:30 MCV 95.9 fl (80-96) 08/21/18 05:30 MCH 32.1 pg (25.7-33.7) 08/21/18 05:30 MCHC 33.5 g/dl (32.0-36.0) 08/21/18 05:30 RDW 17.6 % (11.6-15.6) H 08/21/18 05:30 Plt Count 124 K/MM3 (134-434) L 08/21/18 05:30 MPV 11.3 fl (7.5-11.1) H 08/21/18 05:30 Absolute Neuts (auto) 2.5 K/mm3 (1.5-8.0) 08/21/18 05:30 Neutrophils % 56.8 % (42.8-82.8) 08/21/18 05:30 Lymphocytes % 31.7 % (8-40) D 08/21/18 05:30 Monocytes % 9.3 % (3.8-10.2) 08/21/18 05:30 Eosinophils % 1.5 % (0-4.5) D 08/21/18 05:30 Basophils % 0.7 % (0-2.0) 08/21/18 05:30 Nucleated RBC % 0 % (0-0) 08/21/18 05:30 Platelet Estimate Slt decrease 08/19/18 23:04 Platelet Comment No clumping noted 08/19/18 23:04 VBG pH 7.25 (7.32-7.42) L 08/19/18 23:04 POC VBG pCO2 37.5 mmHg (38-52) L 08/19/18 23:04 POC VBG pO2 45.4 mmHg (28-48) 08/19/18 23:04 Mixed VBG HCO3 15.7 meq/L (19-25) L 08/19/18 23:04 Sodium 143 mmol/L (136-145) 08/22/18 06:50 Potassium 4.0 mmol/L (3.5-5.1) 08/22/18 06:50 Chloride 112 mmol/L (98-107) H 08/22/18 06:50 Carbon Dioxide 25 mmol/L (21-32) 08/22/18 06:50 Anion Gap 6 MMOL/L (8-16) L 08/22/18 06:50 BUN 16 mg/dL (7-18) 08/22/18 06:50 Creatinine 0.8 mg/dL (0.55-1.3) 08/22/18 06:50 Creat Clearance w eGFR > 60 (>60) 08/22/18 06:50 POC Glucometer 71 UNITS (80-120) 08/22/18 05:44 Random Glucose 140 mg/dL (74-106) H 08/22/18 06:50 Hemoglobin A1c % 15.2 % (4.2-6.3) H 08/20/18 05:20 Calcium 8.6 mg/dL (8.5-10.1) 08/22/18 06:50 Phosphorus 1.7 mg/dL (2.5-4.9) L 08/20/18 06:00 Magnesium 2.0 mg/dL (1.8-2.4) 08/21/18 06:30 Iron 187 ug/dL (27-139) H 08/21/18 06:30 TIBC 223 ug/dL (250-450) L 08/21/18 06:30 Iron Saturation 84 % (15-55) H 08/21/18 06:30 Ferritin 31.9 ng/ml (8-388) 08/21/18 06:30 Total Bilirubin 0.3 mg/dL (0.2-1) 08/22/18 06:50 AST 18 U/L (15-37) 08/22/18 06:50 ALT 16 U/L (13-61) 08/22/18 06:50 Alkaline Phosphatase 56 U/L (45-117) 08/22/18 06:50 Troponin I < 0.02 ng/ml (0.00-0.05) 08/19/18 23:40 B-Natriuretic Peptide 20.3 pg/ml (5-125) 08/19/18 23:40 Total Protein 5.7 g/dl (6.4-8.2) L 08/22/18 06:50 Albumin 2.5 g/dl (3.4-5.0) L 08/22/18 06:50 Triglycerides 139 mg/dL (0-150) 08/21/18 06:30 Cholesterol 152 mg/dL (50-200) 08/21/18 06:30 Total LDL Cholesterol 63 mg/dL (5-100) 08/21/18 06:30 HDL Cholesterol 69 mg/dL (40-60) H 08/21/18 06:30 TSH 0.69 uIU/ml (0.358-3.74) 08/19/18 23:40 Urine Color Straw 08/20/18 00:15 Urine Appearance Clear 08/20/18 00:15 Urine pH 5.0 (5.0-8.0) 08/20/18 00:15 Ur Specific [place] 1.017 (1.010-1.035) 08/20/18 00:15 Urine Protein Negative (NEGATIVE) 08/20/18 00:15 Urine Glucose (UA) 3+ (NEGATIVE) H 08/20/18 00:15 Urine Ketones 2+ (NEGATIVE) H 08/20/18 00:15 Urine Blood Negative (NEGATIVE) 08/20/18 00:15 Urine Nitrite Negative (NEGATIVE) 08/20/18 00:15 Urine Bilirubin Negative (<2.0 mg/dL) 08/20/18 00:15 Urine Urobilinogen Negative mg/dL (0.2-1.0) 08/20/18 00:15 Ur Leukocyte Esterase Negative (NEGATIVE) 08/20/18 00:15 Acetone, Qual Positive large 3+ (NEGATIVE) H 08/19/18 23:40 Microbiology 08/20/18 00:15 Urine - Urine Clean Catch Urine Culture - Final Contaminated: Please Repeat Vital Signs Temp 97.9 F 08/22/18 06:00 Pulse 101 H 08/22/18 06:00 Resp 20 08/22/18 06:00 BP 119/67 08/22/18 06:00 Pulse Ox 97 08/21/18 21:00 Intake & Output 08/21/18 08/21/18 08/22/18 11:59 23:59 11:59 Intake Total 2332 580 Balance 2332 580 Weight 54.431 kg Intake: IV 1232 280 1/2 Normal Saline 1,000 1232 280 ml @ 83 mls/hr IV [facility] Rx#:[id number] Oral 1100 300 Other: Voiding Method Toilet Toilet Toilet Height 5 ft 2 in Body Mass Index (BMI) 21.9 Weight Measurement Method Standing Scale Condition: Stable - Instructions Referrals: Darion Morales [Primary Care Provider] - Disposition: VNS/HOME HEALTH CARE - Home Medications Comprehensive Discharge Medication List: Ambulatory Orders Gabapentin [Neurontin -] 400 mg PO TID #30 capsule MDD 3 01/02/18 Rosuvastatin [Crestor -] 40 mg PO HS #30 tablet MDD 1 01/02/18 Polyethylene Glycol 3350 [Miralax 119 gm Btl -] 17 gm PO BID bottle 05/23/18 Aspirin [ASA -] 81 mg PO DAILY tab.chew 06/20/18 Docusate Sodium [Colace -] 300 mg PO HS #90 capsule 06/20/18 Metformin HCl [Glucophage] 1,000 mg PO BID #60 tablet 06/20/18 Sennosides [Senna -] 2 tab PO HS #60 tablet 06/20/18 Mirtazapine [Remeron -] 7.5 mg PO HS #30 tablet 07/12/18 Polyethylene Glycol 3350 [Miralax 119 gm Btl -] 17 gm PO BID #2 bottle 07/12/18 Sitagliptin Phosphate [Januvia] 100 mg PO DAILY #30 tablet 07/12/18 Clindamycin [Cleocin -] 300 mg PO TID #21 capsule 07/27/18 Insulin (Novolog) [Novolog -] 0 units SQ AC #1 ea 07/27/18 Insulin (Levemir) [Levemir Vial] 15 units SQ HS units 08/22/18 Insulin (Levemir) [Levemir Vial] 20 units SQ AM units 08/22/18
[2018-08-22 12:18] VITALS: BP 112/64; PULSE 94; TEMP 98
== END 2018-08-22 14:54 | disposition home health service (06) | DRG 469 ==
LOC: JER 21:37 → JERBED 08-20 00:46 → J5S 08-21 08:23
PROVIDERS: ADMIT Internal Medicine; ATTEND Family Medicine
DX: N17.9 Acute kidney failure, unspecified (principal); E11.10 Type 2 diabetes mellitus with ketoacidosis without coma; E87.2 Acidosis; E11.40 Type 2 diabetes mellitus with diabetic neuropathy, unspecified; I69.354 Hemiplegia and hemiparesis following cerebral infarction affecting left non-dominant side; E87.5 Hyperkalemia; E11.65 Type 2 diabetes mellitus with hyperglycemia; D64.9 Anemia, unspecified; E11.22 Type 2 diabetes mellitus with diabetic chronic kidney disease; I12.9 Hypertensive chronic kidney disease with stage 1 through stage 4 chronic kidney disease, or unspecified chronic kidney disease; N18.9 Chronic kidney disease, unspecified; Z79.4 Long term (current) use of insulin; Z91.14 Patient's other noncompliance with medication regimen; Z87.440 Personal history of urinary (tract) infections; R00.2 Palpitations; E86.9 Volume depletion, unspecified; E86.0 Dehydration
CPT/HCPCS: 36415; 71045-TC-FY; 80048; 80053; 80061; 81003; 82009; 82728; 82803; 82962; 83036; 83540; 83550; 83721; 83735; 83880; 84100; 84443; 84484; 85025; 87086; 93005; 93010; 93306-TC; 97116-GP; 97161-GP; 99282-25; J1644; J3480; J7030

== ENCOUNTER 2018-09-06 13:36 | Inpatient (IN) | payer OTHER ==
--- NOTE | 2018-09-06 14:09 | PDOC ---
History of Present Illness - General Chief Complaint: Weakness Stated Complaint: DIZZZNESS/WEAKNESS Time Seen by Provider: 09/06/18 14:07 History Source: Patient, Family (Daughter present at bedside), Labor Relations Representative Used (Pt Divehi speaking only. [employer] telephone spanish medical interpreter provided translation.) Exam Limitations: Clinical Condition, Language Barrier - History of Present Illness Initial Comments: HPI: 62 y/o female presenting to [facility] ER complaining of weakness/dizziness and generalized lower abdominal pain with nausea for the past several days. Pt found somnolent and would not participate in interview. Pts daughter at bedside and reported the pts BGL was 25 at home this morning. She gave the pt juice and drove her to this facility. Pt was not transported by EMS. Pt was discharged from this facility on 22 Aug 2018 following admission for DKA with similar presenting symptoms. Daughter states she has been taking her medication as prescribed. PCP: Dr. Morales [facility] Hx: - HTN - HLD - IDDM - Hx of DKA - CKD - Recurrent UTI - CVA (with left residual left weakness) Past History - Past Medical History Allergies/Adverse Reactions: Allergies Allergy/AdvReac Type Severity Reaction Status Date / Time No Known Allergies Allergy Verified 09/06/18 13:54 Home Medications: Ambulatory Orders Gabapentin [Neurontin -] 400 mg PO TID #30 capsule MDD 3 01/02/18 Rosuvastatin [Crestor -] 40 mg PO HS #30 tablet MDD 1 01/02/18 Polyethylene Glycol 3350 [Miralax 119 gm Btl -] 17 gm PO BID bottle 05/23/18 Aspirin [ASA -] 81 mg PO DAILY tab.chew 06/20/18 Docusate Sodium [Colace -] 300 mg PO HS #90 capsule 06/20/18 Metformin HCl [Glucophage] 1,000 mg PO BID #60 tablet 06/20/18 Sennosides [Senna -] 2 tab PO HS #60 tablet 06/20/18 Mirtazapine [Remeron -] 7.5 mg PO HS #30 tablet 07/12/18 Polyethylene Glycol 3350 [Miralax 119 gm Btl -] 17 gm PO BID #2 bottle 07/12/18 Sitagliptin Phosphate [Januvia] 100 mg PO DAILY #30 tablet 07/12/18 Clindamycin [Cleocin -] 300 mg PO TID #21 capsule 07/27/18 Insulin (Novolog) [Novolog -] 0 units SQ AC #1 ea 07/27/18 Insulin (Levemir) [Levemir Vial] 15 units SQ HS units 08/22/18 Insulin (Levemir) [Levemir Vial] 20 units SQ AM units 08/22/18 Asthma: No CVA: Yes COPD: No Diabetes: Yes (TYPE 2) GI Disorders: Yes (CONSTIPATION) Disorders: Yes (recurrent UTIs) HTN: Yes Hypercholesterolemia: Yes Psychiatric Problems: Yes (Depression) Thyroid Disease: No - Surgical History Cardiac Surgery: No Gastric Stapling: No GI Surgery: No Lung Surgery: No Neurologic Surgery: No - Immunization History TDAP Vaccination: Yes Immunization Up to Date: No - Suicide/Smoking/Psychosocial Hx Smoking History: Never smoked Have you smoked in the past 12 months: No Information on smoking cessation initiated: No Hx Alcohol Use: No Drug/Substance Use Hx: No Substance Use Type: None Hx Substance Use Treatment: No Review of Systems - Review of Systems Able to Perform ROS?: No (Pt condition) *Physical Exam - Vital Signs Last Vital Signs Temp Pulse Resp BP Pulse Ox 98.2 F 113 H 17 115/72 99 09/06/18 13:50 09/06/18 13:50 09/06/18 13:50 09/06/18 13:50 09/06/18 13:50 - Physical Exam Comments: Constitutional: Somnolent elderly female in no obvious discomfort. Found semi- fowlers in hospital bed. Arousable to voice. Would not respond to questions from myself or pts daughter; only groaned. Head: Normocephalic. No obvious external signs of trauma. Neck: Supple, trachea is midline. Cardiovascular / Chest: Regular rate and regular rhythm. No murmur, rubs, clicks, or gallops. Peripheral pulses: radial pulses full. Respiratory: Breathing mildly tachypneic. Equal chest rise and fall. Clear to auscultation bilaterally. No stridor, no wheezing, no rhonchi. Gastrointestinal: abdomen is tender in RLQ and LLQ. Globally, abdomen is soft and nondistended. Neuro: Alert to verbal. Unable to assess orientation. Moving all four extremities spontaneously. Withdraws to pain locally in all four extremities. Skin: Warm, dry, and intact. Moderate Sedation - Procedure Monitoring Vital Signs: Procedure Monitoring Vital Signs Temperature 98.2 F 09/06/18 13:50 Pulse Rate 113 H 09/06/18 13:50 Respiratory Rate 17 09/06/18 13:50 Blood Pressure 115/72 09/06/18 13:50 O2 Sat by Pulse Oximetry (%) 99 09/06/18 13:50 ED Treatment Course - LABORATORY CBC & Chemistry Diagram: 09/06/18 15:21 09/06/18 15:21 - ADDITIONAL ORDERS Additional order review: 09/06/18 09/06/18 09/06/18 15:21 15:21 15:21 PT with INR INR VBG pH 7.21 L POC VBG pCO2 35.0 L POC VBG pO2 43.5 H VBG HCO3 13.5 L VBG O2 Sat (Martha) 69.4 L VBG Base Excess -13.1 L Sodium Potassium Chloride Carbon Dioxide Anion Gap BUN Creatinine Creat Clearance w eGFR POC Glucometer Random Glucose Calcium Phosphorus 4.4 Cancelled Magnesium 2.6 H Total Bilirubin AST ALT Alkaline Phosphatase Creatine Kinase Troponin I Total Protein Albumin Acetone, Qual Positive large 3+ H Cancelled 09/06/18 09/06/18 09/06/18 15:21 15:21 14:45 PT with INR 10.00 INR 0.85 VBG pH POC VBG pCO2 POC VBG pO2 VBG HCO3 VBG O2 Sat (Martha) VBG Base Excess Sodium 139 Potassium 5.8 H Chloride 101 Carbon Dioxide 13 L Anion Gap 25 H BUN 26 H Creatinine 1.6 H Creat Clearance w eGFR 32.45 POC Glucometer > 600 Random Glucose 708 H* Calcium 10.8 H Phosphorus Magnesium Total Bilirubin 0.4 AST 8 L ALT 18 Alkaline Phosphatase 85 Creatine Kinase 41 Troponin I < 0.02 Total Protein 8.2 Albumin 3.4 Acetone, Qual 09/06/18 09/06/18 15:21 14:45 RBC 4.18 MCV 99.3 H MCHC 32.5 RDW 18.4 H MPV 12.4 H Neutrophils % 87.7 H D Lymphocytes % 8.0 D Monocytes % 3.4 L Eosinophils % 0.1 D Basophils % 0.8 POC Glucometer > 600 - RADIOLOGY Radiology Studies Ordered: Category Date Time Status CHEST X-RAY PORTABLE* [RAD] Stat Radiology 09/06/18 14:56 Completed Medical Decision Making - Medical Decision Making *Reviewed vital signs, nursing notes, and prior visit documentation (if available). 62 y/o female insulin dependent diabetic with long history of nonadherence presenting with altered mental status. Daughter reported last BGL was 25 this morning, however her POC BGL was found to be HI. SQ insulin bolus administered. Labs revealed hyperglycemia with anion gap metabolic acidosis and hyperkalemia. No EKG changes. 3+ serum acetone. Insulin drip started. Will admit pt to ICU for DKA. Suspect this is the source of her abdominal pain and nausea. CXR unremarkable for acute cardiopulmonary process. Case discussed with pts outside sales professional, Dr. Nath. Will evaluate the pt during this admission. Consult order placed. 17:22 Telephone consultation with resident Dr. Brock. Verbally appraised of the pts HPI, ED course, and current plan of management. Will evaluate pt and admit to ICU for attending Dr. Mccabe. Consult order placed. 18:04 [facility]. Awaiting call back. ED attending discussed case with inpatient team. *DC/Admit/Observation/Transfer Diagnosis at time of Disposition: DKA (diabetic ketoacidoses) Qualifiers: Diabetes mellitus type: type 2 Diabetes mellitus complication detail: without coma Qualified Code(s): E11.10 - Type 2 diabetes mellitus with ketoacidosis without coma - Discharge Dispostion Condition at time of disposition: Stable Decision to Admit order: Yes - Referrals Referrals: Darion Morales [Primary Care Provider] - - Patient Instructions - Post Discharge Activity
[2018-09-06] MEDS ORDERED: LACTATED RINGERS SOLUTION 1000 ML INFUS.BAG IV ONE ×4 (14:54→17:16)
--- NOTE | 2018-09-06 15:15 | PDOC ---
Attending Attestation - Resident Resident Name: Ruy Shore - ED Attending Attestation I have performed the following: I have examined & evaluated the patient, The case was reviewed & discussed with the resident, I agree w/resident's findings & plan - [facility] HPI: 09/06/18 17:16 62YOF, with a significant past medical history of CVA (L sided residual weakness , walks with a cane), IDDM(not compliant with medication), HTN, HLD, and recurrent UTIs, who presents to the emergency department with, lower abdominal pain, increased thirst and urination, and abnormal blood glucose levels. Indonesian interpretation via [employer]. Daughter at bedside as well. some limitation in history due to poor patient cooperation and response to questions via [employer] Allergies: NKA Past Medical History: CVA (L sided residual weakness, walks with a cane), IDDM( not compliant with medication), HTN, HLD, and recurrent UTIs Social history: Lives with family. No smoking. No alcohol. No illicit drugs. Surgical history: Uterine fibroid removal. PMD: Dr. Darion Morales 09/06/18 17:17 - Physicial Exam PE: 09/06/18 17:17 +Somnolent but, arousable, withdrawal to pain. malaised appearing, PERRL, EOMI, MMM, nl conjunctiva, anicteric; dry mucus membranes, neck supple. lungs clear, mild tachycardia, abdomen soft +increased suprapubic and lower abdominal tenderness with voluntary guarding. No CVA tenderness. WILKINS x4, no focal neuro deficits. No peripheral edema. normal color for ethnicity, WWP. - Critical Care Time Total Critical Care Time: 45 (DKA, metabolic derangements.) Critical Care Statement: The care of this patient involved high complexity decision making to prevent further life threatening deterioration of the patient 's condition and/or to evaluate & treat vital organ system(s) failure or risk of failure. - Medical Decision Making 09/06/18 15:13 I, Kristin Smith MD, attest that this document has been prepared under my direction and personally reviewed by me in its entirety. I further attest, that it accurately reflects all work, treatment, procedures and medical decision -making performed by me. See HPI for details Differential diagnosis includes DKA, hyperglycemia, HHS, infection, UTI, dehydration, electorally/metabolic derangements Vital signs reviewed, tachycardia lfrom dehydration/hyperglycemia. Prior notes reviewed, including admissions, discharges and consultations. laboratory results and imaging reviewed, basic labs and lytes notable for: - hyperglycemia, >600 on BGM. - IVF hydration copiously with LR 4 liters., SQ insulin to start. - eval for DKA vs HHS, now with +ketones, AG acidosis of 7.21, AG 25, hyperglycemia - treating DKA with insulin gtt. potassium 5.8, no repletion or supplementation needed. repeat VS, tachycardia improving, copious hydration and insulin gtt continuing. EKG sinus tachycardia at 108 bpm, no interval abnormalities, narrow QRS, ST and T wave segments and morphology normal. Nonspecific T wave abnormalities - admit to ICU for insulin gtt/hydration, DKA management, higher level of care and close monitoring. s/o to hospitalist service, ICU bed. 09/06/18 18:34 Heart Score/ECG Review #1 ECG reviewed & interpreted by me at: 15:30 General ECG Interpretation: Sinus Rhythm Compared to previous ECG there are: Changes noted 09/06/18 17:21 EKG sinus tachycardia at 108 bpm, no interval abnormalities, narrow QRS, ST and T wave segments and morphology normal. Nonspecific T wave abnormalities in AVL, no contiguous lead changes.
[2018-09-06 15:49] LABS: BASO % 0.8 % (0-2.0); EOS % 0.1 % (0-4.5); HEMATOCRIT 41.5 % (32.4-45.2); HEMOGLOBIN 13.5 GM/dL (10.7-15.3); MCH 32.3 pg (25.7-33.7); MCHC 32.5 g/dl (32.0-36.0); MEAN CELL VOLUME 99.3 fl (80-96); MEAN PLT VOLUME 12.4 fl (7.5-11.1); MONO % 3.4 % (3.8-10.2); NEUT % 87.7 % (42.8-82.8); PLATELET COUNT 156 K/MM3 (134-434); RBC 4.18 M/mm3 (3.60-5.2); RDW 18.4 % (11.6-15.6); WHITE BLOOD COUNT 6.8 K/mm3 (4.0-10.0)
[2018-09-06 15:58] LABS: VENOUS PH 7.21 (7.31-7.41); VENOUS PO2 43.5 mmHg (30-40)
[2018-09-06 16:15] LABS: INR 0.85 (0.83-1.09)
[2018-09-06] MEDS ORDERED: INSULIN (NOVOLOG) ASPART 100 UNITS/ML 10ML VIAL SQ ONE (16:15)
[2018-09-06 16:27] LABS: MAGNESIUM 2.6 mg/dL (1.8-2.4); PHOSPHOROUS 4.4 mg/dL (2.5-4.9)
[2018-09-06 16:51] LABS: GLUCOSE,RANDOM 708 mg/dL (74-106)
[2018-09-06 16:52] LABS: CREATININE 1.6 mg/dL (0.55-1.3)
[2018-09-06 16:53] LABS: CO2 13 mmol/L (21-32)
[2018-09-06 16:54] LABS: ALBUMIN 3.4 g/dl (3.4-5.0)
[2018-09-06 16:57] LABS: ACETONE SERUM POSITIVE LARGE 3+ (NEGATIVE)
[2018-09-06] MEDS ORDERED: INSULIN REGULAR 100 UNITS in SODIUM CHLORIDE 99 ML IVPB SCH ×2 (17:15→18:15)
[2018-09-06] MEDS ORDERED: INSULIN REGULAR HUMAN 100 UNITS/ML *VIAL ONE ×2 (17:38→18:46)
[2018-09-06 17:58] LABS: ALK PHOS 85 U/L (45-117); ANION GAP 25 MMOL/L (8-16); BILIRUBIN,TOTAL 0.4 mg/dL (0.2-1); BLOOD UREA NITROGEN 26 mg/dL (7-18); CALCIUM 10.8 mg/dL (8.5-10.1); CHLORIDE 101 mmol/L (98-107); POTASSIUM 5.8 mmol/L (3.5-5.1); SGOT/AST 8 U/L (15-37); SGPT/ALT 18 U/L (13-61); SODIUM 139 mmol/L (136-145); TOT PROT 8.2 g/dl (6.4-8.2)
--- NOTE | 2018-09-06 17:59 | CONSULT ---
Consult Consult Specialty:: ICU Reason for Consultation:: DKA - History of Present Illness Chief Complaint: Dysuria History of Present Illness: Patient is a 62 year old female with past medical history of HTN, HLD, IDDM, CKD , Hx of DKA and recurrent UTI, CVA, presenting with lower abdominal pain and dysuria for the past 3 days. Pt reports nausea, but no vomiting/fever/ no hematuria. Pt has noticed blood while wiping, no black stools. Pt also reports left sided pressure like reproducible chest pain with no radiation or SOB for the past 3 days. Pt reports using insulin at home and has been admitted in past with DKA. Per ED notes, Pt was brought in by daughter for generalized weakness and abdominal pain, with BGM earlier in day of 25 after which she received orange juice then was brought in. Per ED, she was somnolent and non responsive when they saw her. By the time I saw the patient, she was awake and able to provide history via an director of reimbursement. We were consulted to manage her for DKA. 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) Endocrine: Yes: Diabetes Mellitus - Past Surgical History Past Surgical History: Yes: , Hysterectomy, Tubal Ligation - Alcohol/Substance Use Hx Alcohol Use: No History of Substance Use: reports: None - Smoking History Smoking history: Never smoked Have you smoked in the past 12 months: No - Social History Usual Living Arrangement: With Child ADL: Family Assistance Occupation: retired History of Recent Travel: No Home Medications - Allergies Allergies/Adverse Reactions: Allergies Allergy/AdvReac Type Severity Reaction Status Date / Time No Known Allergies Allergy Verified 09/06/18 13:54 - Home Medications Home Medications: Ambulatory Orders Gabapentin [Neurontin -] 400 mg PO TID #30 capsule MDD 3 01/02/18 Rosuvastatin [Crestor -] 40 mg PO HS #30 tablet MDD 1 01/02/18 Polyethylene Glycol 3350 [Miralax 119 gm Btl -] 17 gm PO BID bottle 05/23/18 Aspirin [ASA -] 81 mg PO DAILY tab.chew 06/20/18 Docusate Sodium [Colace -] 300 mg PO HS #90 capsule 06/20/18 Metformin HCl [Glucophage] 1,000 mg PO BID #60 tablet 06/20/18 Sennosides [Senna -] 2 tab PO HS #60 tablet 06/20/18 Mirtazapine [Remeron -] 7.5 mg PO HS #30 tablet 07/12/18 Polyethylene Glycol 3350 [Miralax 119 gm Btl -] 17 gm PO BID #2 bottle 07/12/18 Sitagliptin Phosphate [Januvia] 100 mg PO DAILY #30 tablet 07/12/18 Clindamycin [Cleocin -] 300 mg PO TID #21 capsule 07/27/18 Insulin (Novolog) [Novolog -] 0 units SQ AC #1 ea 07/27/18 Insulin (Levemir) [Levemir Vial] 15 units SQ HS units 08/22/18 Insulin (Levemir) [Levemir Vial] 20 units SQ AM units 08/22/18 Family Disease History - Family Disease History Family Disease History: Diabetes: Mother (HTN) Review of Systems - Review of Systems Constitutional: denies: Chills, Fever Neck: reports: No Symptoms Cardiovascular: reports: Chest Pain (reproducible pressure) Respiratory: denies: Cough, SOB Gastrointestinal: reports: Abdominal Pain (suprapubi), Nausea Genitourinary: reports: Dysuria. denies: Flank Pain, Hematuria Physical Exam Vital Signs: Vital Signs Temperature 98.2 F 09/06/18 13:50 Pulse Rate 113 H 09/06/18 13:50 Respiratory Rate 17 09/06/18 13:50 Blood Pressure 115/72 09/06/18 13:50 O2 Sat by Pulse Oximetry (%) 99 09/06/18 13:50 Constitutional: Yes: Thin Eyes: Yes: Conjunctiva Clear, EOM Intact HENT: Yes: Atraumatic Neck: Yes: Supple Cardiovascular: Yes: Tachycardia, S1, S2 Respiratory: Yes: CTA Bilaterally Gastrointestinal: Yes: Soft, Tenderness (suprapubic area) Renal/: No: CVA Tenderness - Left, CVA Tenderness - Right Edema: No Neurological: Yes: Alert, Oriented Labs: CBC, BMP 09/06/18 15:21 09/06/18 15:21 Assessment/Plan Laboratory Tests 09/06/18 09/06/18 09/06/18 14:45 15:21 15:21 WBC 6.8 RBC 4.18 Hgb 13.5 Hct 41.5 D MCV 99.3 H MCH 32.3 MCHC 32.5 RDW 18.4 H Plt Count 156 D MPV 12.4 H Absolute Neuts (auto) 6.0 Neutrophils % 87.7 H D Lymphocytes % 8.0 D Monocytes % 3.4 L Eosinophils % 0.1 D Basophils % 0.8 Nucleated RBC % 0 PT with INR 10.00 INR 0.85 Anticoagulation Therapy Puncture Site ABG pH ABG pCO2 at Pt Temp ABG pO2 at Pt Temp ABG HCO3 ABG O2 Sat (Measured) ABG O2 Content ABG Base Excess Jd Test VBG pH POC VBG pCO2 POC VBG pO2 VBG HCO3 VBG O2 Sat (Martha) VBG Base Excess Carboxyhemoglobin Methemoglobin O2 Delivery Device Oxygen Flow Rate Vent Mode Vent Rate Mechanical Rate Pressure Support Vent Sodium Potassium Chloride Carbon Dioxide Anion Gap BUN Creatinine Creat Clearance w eGFR POC Glucometer > 600 Random Glucose Calcium Phosphorus Magnesium Total Bilirubin AST ALT Alkaline Phosphatase Creatine Kinase Troponin I Total Protein Albumin Urine Color Urine Appearance Urine pH Ur Specific [place] Urine Protein Urine Glucose (UA) Urine Ketones Urine Blood Urine Nitrite Urine Bilirubin Urine Urobilinogen Ur Leukocyte Esterase Acetone, Qual 09/06/18 09/06/18 09/06/18 15:21 15:21 15:21 WBC RBC Hgb Hct MCV MCH MCHC RDW Plt Count MPV Absolute Neuts (auto) Neutrophils % Lymphocytes % Monocytes % Eosinophils % Basophils % Nucleated RBC % PT with INR INR Anticoagulation Therapy Puncture Site ABG pH ABG pCO2 at Pt Temp ABG pO2 at Pt Temp ABG HCO3 ABG O2 Sat (Measured) ABG O2 Content ABG Base Excess Jd Test VBG pH 7.21 L POC VBG pCO2 35.0 L POC VBG pO2 43.5 H VBG HCO3 13.5 L VBG O2 Sat (Martha) 69.4 L VBG Base Excess -13.1 L Carboxyhemoglobin Methemoglobin O2 Delivery Device Oxygen Flow Rate Vent Mode Vent Rate Mechanical Rate Pressure Support Vent Sodium 139 Potassium 5.8 H Chloride 101 Carbon Dioxide 13 L Anion Gap 25 H BUN 26 H Creatinine 1.6 H Creat Clearance w eGFR 32.45 POC Glucometer Random Glucose 708 H* Calcium 10.8 H Phosphorus Cancelled Magnesium Total Bilirubin 0.4 AST 8 L ALT 18 Alkaline Phosphatase 85 Creatine Kinase 41 Troponin I < 0.02 Total Protein 8.2 Albumin 3.4 Urine Color Urine Appearance Urine pH Ur Specific [place] Urine Protein Urine Glucose (UA) Urine Ketones Urine Blood Urine Nitrite Urine Bilirubin Urine Urobilinogen Ur Leukocyte Esterase Acetone, Qual Cancelled 09/06/18 09/06/18 09/06/18 15:21 18:18 19:03 WBC RBC Hgb Hct MCV MCH MCHC RDW Plt Count MPV Absolute Neuts (auto) Neutrophils % Lymphocytes % Monocytes % Eosinophils % Basophils % Nucleated RBC % PT with INR INR Anticoagulation Therapy No Result Required. Puncture Site Right radial ABG pH 7.30 L ABG pCO2 at Pt Temp 24.8 L ABG pO2 at Pt Temp 103 ABG HCO3 11.8 L ABG O2 Sat (Measured) 97.3 ABG O2 Content 22.7 H ABG Base Excess -12.8 L Jd Test Positive VBG pH POC VBG pCO2 POC VBG pO2 VBG HCO3 VBG O2 Sat (Martha) VBG Base Excess Carboxyhemoglobin 1.3 Methemoglobin 0.7 O2 Delivery Device Room air Oxygen Flow Rate 21% Vent Mode No Result Required. Vent Rate No Result Required. Mechanical Rate No Result Required. Pressure Support Vent No Result Required. Sodium Potassium Chloride Carbon Dioxide Anion Gap BUN Creatinine Creat Clearance w eGFR POC Glucometer Random Glucose Calcium Phosphorus 4.4 Magnesium 2.6 H Total Bilirubin AST ALT Alkaline Phosphatase Creatine Kinase Troponin I Total Protein Albumin Urine Color Colorless Urine Appearance Clear Urine pH 5.0 Ur Specific [place] 1.017 Urine Protein Negative Urine Glucose (UA) 3+ H Urine Ketones 2+ H Urine Blood Negative Urine Nitrite Negative Urine Bilirubin Negative Urine Urobilinogen Negative Ur Leukocyte Esterase Negative Acetone, Qual Positive large 3+ H 09/06/18 09/06/18 09/06/18 19:05 20:27 21:45 WBC RBC Hgb Hct MCV MCH MCHC RDW Plt Count MPV Absolute Neuts (auto) Neutrophils % Lymphocytes % Monocytes % Eosinophils % Basophils % Nucleated RBC % PT with INR INR Anticoagulation Therapy Puncture Site ABG pH ABG pCO2 at Pt Temp ABG pO2 at Pt Temp ABG HCO3 ABG O2 Sat (Measured) ABG O2 Content ABG Base Excess Jd Test VBG pH POC VBG pCO2 POC VBG pO2 VBG HCO3 VBG O2 Sat (Martha) VBG Base Excess Carboxyhemoglobin Methemoglobin O2 Delivery Device Oxygen Flow Rate Vent Mode Vent Rate Mechanical Rate Pressure Support Vent Sodium Potassium Chloride Carbon Dioxide Anion Gap BUN Creatinine Creat Clearance w eGFR POC Glucometer 443 306 Random Glucose Calcium Phosphorus Magnesium Total Bilirubin AST ALT Alkaline Phosphatase Creatine Kinase Cancelled Troponin I Cancelled Total Protein Albumin Urine Color Urine Appearance Urine pH Ur Specific [place] Urine Protein Urine Glucose (UA) Urine Ketones Urine Blood Urine Nitrite Urine Bilirubin Urine Urobilinogen Ur Leukocyte Esterase Acetone, Qual Ambulatory Orders Gabapentin [Neurontin -] 400 mg PO TID #30 capsule MDD 3 01/02/18 Rosuvastatin [Crestor -] 40 mg PO HS #30 tablet MDD 1 01/02/18 Polyethylene Glycol 3350 [Miralax 119 gm Btl -] 17 gm PO BID bottle 05/23/18 Aspirin [ASA -] 81 mg PO DAILY tab.chew 06/20/18 Docusate Sodium [Colace -] 300 mg PO HS #90 capsule 06/20/18 Metformin HCl [Glucophage] 1,000 mg PO BID #60 tablet 06/20/18 Sennosides [Senna -] 2 tab PO HS #60 tablet 06/20/18 Mirtazapine [Remeron -] 7.5 mg PO HS #30 tablet 07/12/18 Polyethylene Glycol 3350 [Miralax 119 gm Btl -] 17 gm PO BID #2 bottle 07/12/18 Sitagliptin Phosphate [Januvia] 100 mg PO DAILY #30 tablet 07/12/18 Clindamycin [Cleocin -] 300 mg PO TID #21 capsule 07/27/18 Insulin (Novolog) [Novolog -] 0 units SQ AC #1 ea 07/27/18 Insulin (Levemir) [Levemir Vial] 15 units SQ HS units 08/22/18 Insulin (Levemir) [Levemir Vial] 20 units SQ AM units 08/22/18 Assessment/Plan: Patient is a 62 year old female with past medical history of HTN, HLD, IDDM, CKD , Hx of DKA and recurrent UTI, CVA, presenting with lower abdominal pain and dysuria for the past 3 days found to be in DKA #Endocrine DKA Pt reports using insulin at home, compliance unknown, could be triggered by infection (pt with dysuria) UA, Ucx Flu swab Empiric ceftriaxone 1g given iv regular insulin- 0.1mg/kg stat then insulin gtt@0.1mg/kg/hr BMP Q4H 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 Watch for close in gap Add dextrose to saline when serum glucose reaches 200mg/dL Continue insulin drip until gap closes #ID Urine cx-Jun 2018, pansensitive ucx-08/20- contaminant (negative UA) 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 (08/22/18) Consider ID consult Empiric ceftriaxone given (suprapubic pain and tenderness hx) UA negative (recent Antibiotics) Ucx pending #Renal ALEX Likely in setting of dehydration from DKA Pt received 2L LR, Discontinue LR (elevated K) Cont iv insulin in NS Bauer inserted- Monitor Ins and Outs UA- negative for infection at this time, recent admission 08/22 urine culture with contaminant Hyperkalemia K- 5.8 Add iv KCL 20mEq to each 1L NS when K between 3.3-5.3 On insulin drip, monitor closely, BMP Q4H #Neuro Pt is awake, alert #Respiratory Saturating well Metabolic acidosis with anion gap, secondary to DKA VBG done initially ABG stat BMP Q4H cont insulin drip Stop LR #Cards Chest pain- reproducible, no SOB Likely musculoskeletal, Initial trops negative, trend EKG- not concerning for acute event Cardiac monitoring Cont ASA HTN Pt required rehydration on presentation Pt not hypertensive at this time, will continue to monitor Grade I diastolic HF (ECHO-08/20/18) Monitor fluid HLD Resume crestor #GI Reports blood after wiping Fecal occult #FEN Insulin drip in NS for now, add dextrose when glu 200 Monitor electrolytes especially K and replete per protocol May transition to PO if alert and gap closed #DVT Heparin sq on hold per report of rectal bleed #Dispo ICU level care Visit type - Emergency Visit Emergency Visit: Yes ED Registration Date: 09/06/18 Care time: The patient presented to the Emergency Department on the above date and was hospitalized for further evaluation of their emergent condition. - New Patient This patient is new to me today: Yes Date on this admission: 09/06/18 - Critical Care Critical Care patient: Yes Total Critical Care Time (in minutes): 35 Critical Care Statement: The care of this patient involved high complexity decision making to prevent further life threatening deterioration of the patient 's condition and/or to evaluate & treat vital organ system(s) failure or risk of failure.
[2018-09-06] MEDS ORDERED: INSULIN REGULAR HUMAN 100 UNITS/ML *VIAL IVPUSH ONE (18:15)
[2018-09-06 19:14] LABS: URINE APPEARANCE CLEAR; URINE BILIRUBIN NEGATIVE (<2.0 mg/dL); URINE COLOR COLORLESS; URINE GLUCOSE (UA) 3+ (NEGATIVE); URINE KETONE 2+ (NEGATIVE); URINE LEUK ESTERASE NEGATIVE (NEGATIVE); URINE NITRITE NEGATIVE (NEGATIVE); URINE PROTEIN NEGATIVE (NEGATIVE); URINE UROBILINOGEN NEGATIVE mg/dL (0.2-1.0)
[2018-09-06 19:25] LABS: ARTERIAL BLD GAS O2 SATURATION 97.3 % (95-98); ARTERIAL BLOOD GAS BASE EXCESS -12.8 meq/l (-2-2); ARTERIAL BLOOD GAS PCO2 24.8 mmHg (35-45); ARTERIAL BLOOD GAS PO2 103 mmHg (80-105); CARBOXYHEMOGLOBIN 1.3 % (0-2)
[2018-09-06 19:27] LABS: ALLENS TEST POSITIVE
[2018-09-06] MEDS ORDERED: ASPIRIN 81 MG CHEWABLE TABLETS ONE (20:55)
[2018-09-06] MEDS ORDERED: CEFTRIAXONE 1 GM/50 ML BAG ONE (20:55)
[2018-09-06] MEDS: CEFTRIAXONE 1 GM in DEXTROSE 5%-WATER - 50 ML IVPB SCH (20:59)
[2018-09-06] MEDS: ASPIRIN 81 MG CHEWABLE TABLETS PO SCH (20:59)
[2018-09-06] MEDS ORDERED: SENNOSIDES 8.6MG TABLET (FP) PO PRN (22:18)
[2018-09-06] MEDS ORDERED: POLYETHYLENE GLYCOL 3350 119 GM BTL PO PRN (22:18)
[2018-09-06] MEDS ORDERED: ALBUTEROL SO4 0.083% IH SOL 2.5 MG/3 ML VIAL.NEB. NEB PRN (22:24)
[2018-09-06] MEDS ORDERED: METOCLOPRAMIDE HCL INJECTION 10 MG/2 ML VIAL IVPUSH PRN (22:24)
--- NOTE | 2018-09-06 22:26 | HP ---
Admitting History and Physical - Primary Care Physician PCP: Darion Morales - Admission Chief Complaint: malaise, nausea History of Present Illness: 62 y/o woman with a past medical history of poorly controlled DM II, Diabetic Neuropathy, HTN, CVA. Who presents to the ED with dizziness, polyuria, polydipsia, malaise and nausea over the last three days. Patient felt progressively worse and experienced decreased appetite along with her BG being 25mg/dl at home which prompted her visit to the ED. She denies fever, chills, cough, LEE, blurred vision, SOB, CP, palpitations. Of note, pt has had one admission every month over the last four months for DKA or severe hyperglycemia. Patient endorses taking meds as prescribed but offers no explanation for the chronicity of her severe hyperglycemia. In ED: vitals were: T 98.0, HR 94bpm, BP 112/64mmHg, RR 20 Serum Glucose 708mg/dl Serum Acetone +, K 5.8, pH 7.30, Cr 1.6 AG 25 5L IVF bolus given, 10units R-insulin SC and 5units IVP followed by Insulin Drip PT will be admitted to ICU for intensive management. 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) Endocrine: Yes: Diabetes Mellitus - Past Surgical History Past Surgical History: Yes: , Hysterectomy, Tubal Ligation - Smoking History Smoking history: Never smoked Have you smoked in the past 12 months: No - Alcohol/Substance Use Hx Alcohol Use: No History of Substance Use: reports: None - Social History Usual Living Arrangement: Yes: With Child ADL: Family Assistance Occupation: retired History of Recent Travel: No Home Medications - Allergies Allergies/Adverse Reactions: Allergies Allergy/AdvReac Type Severity Reaction Status Date / Time No Known Allergies Allergy Verified 09/06/18 13:54 - Home Medications Home Medications: Ambulatory Orders Gabapentin [Neurontin -] 400 mg PO TID #30 capsule MDD 3 01/02/18 Rosuvastatin [Crestor -] 40 mg PO HS #30 tablet MDD 1 01/02/18 Polyethylene Glycol 3350 [Miralax 119 gm Btl -] 17 gm PO BID bottle 05/23/18 Aspirin [ASA -] 81 mg PO DAILY tab.chew 06/20/18 Docusate Sodium [Colace -] 300 mg PO HS #90 capsule 06/20/18 Metformin HCl [Glucophage] 1,000 mg PO BID #60 tablet 06/20/18 Sennosides [Senna -] 2 tab PO HS #60 tablet 06/20/18 Mirtazapine [Remeron -] 7.5 mg PO HS #30 tablet 07/12/18 Polyethylene Glycol 3350 [Miralax 119 gm Btl -] 17 gm PO BID #2 bottle 07/12/18 Sitagliptin Phosphate [Januvia] 100 mg PO DAILY #30 tablet 07/12/18 Clindamycin [Cleocin -] 300 mg PO TID #21 capsule 07/27/18 Insulin (Novolog) [Novolog -] 0 units SQ AC #1 ea 07/27/18 Insulin (Levemir) [Levemir Vial] 15 units SQ HS units 08/22/18 Insulin (Levemir) [Levemir Vial] 20 units SQ AM units 08/22/18 Family Disease History - Family Disease History Family Disease History: Diabetes: Mother ( (83) DMII), Other: Father ( (74) unknown) Review of Systems - Review of Systems Constitutional: reports: Lethargy, Loss of Appetite, Malaise, Weakness Eyes: reports: No Symptoms HENT: reports: No Symptoms Neck: reports: No Symptoms Cardiovascular: reports: No Symptoms Respiratory: reports: No Symptoms Gastrointestinal: reports: Nausea, Vomiting Genitourinary: reports: Frequency Breasts: reports: No Symptoms Reported Musculoskeletal: reports: Muscle Weakness Integumentary: reports: No Symptoms Neurological: reports: Dizziness, Weakness Endocrine: reports: No Symptoms Hematology/Lymphatic: reports: No Symptoms Psychiatric: reports: No Symptoms Physical Examination Vital Signs: Vital Signs Temperature 98.2 F 09/06/18 13:50 Pulse Rate 102 H 09/06/18 21:19 Respiratory Rate 20 09/06/18 21:19 Blood Pressure 151/86 09/06/18 21:19 O2 Sat by Pulse Oximetry (%) 99 09/06/18 21:19 Constitutional: Yes: Mild Distress, Thin Eyes: Yes: Conjunctiva Clear, PERRL HENT: Yes: Atraumatic, Normocephalic Neck: Yes: Supple Cardiovascular: Yes: Regular Rate and Rhythm Respiratory: Yes: Regular, CTA Bilaterally Gastrointestinal: Yes: Normal Bowel Sounds, Soft ...Rectal Exam: Yes: Deferred Renal/: Yes: Bauer Present Musculoskeletal: Yes: Muscle Weakness Extremities: Yes: WNL Edema: No Peripheral Pulses WNL: Yes Peripheral Pulses: Left Radial: 2+, Right Radial: 2+ Integumentary: Yes: WNL Neurological: Yes: Oriented, Lethargy ...Motor Strength: WNL Psychiatric: Yes: Alert, Oriented Labs: CBC, BMP 09/06/18 15:21 09/06/18 15:21 Imaging - Results Chest X-ray: Report Reviewed (CXR 09/06: no acute disease) Problem List - Problems (1) Prophylactic measure Assessment/Plan: SC heparin TID Bowel regimen: senna and colace OOB to chair as tolerated Fall precautions Code(s): Z29.9 - ENCOUNTER FOR PROPHYLACTIC MEASURES, UNSPECIFIED (2) Diabetic ketoacidosis Assessment/Plan: ADmit to ICU for intensive management Insulin as per protocol NS IVSS trend lactate and AG Code(s): E13.10 - OTH DIABETES MELLITUS WITH KETOACIDOSIS WITHOUT COMA Qualifiers: Diabetes mellitus type: type 2 Diabetes mellitus complication detail: without coma Qualified Code(s): E11.10 - Type 2 diabetes mellitus with ketoacidosis without coma (3) CKD (chronic kidney disease) Assessment/Plan: trend BUN/CR and electrolytes K 5.8 in ED, sodium bicarb and Kayexalate ordered follow up urine culture Code(s): N18.9 - CHRONIC KIDNEY DISEASE, UNSPECIFIED (4) Hyperlipidemia Assessment/Plan: crestor 40mg qhs ASA 81mg Code(s): E78.5 - HYPERLIPIDEMIA, UNSPECIFIED Assessment/Plan Depression: continue remeron Dispo: Full code Visit type - Emergency Visit Emergency Visit: Yes ED Registration Date: 09/06/18 Care time: The patient presented to the Emergency Department on the above date and was hospitalized for further evaluation of their emergent condition. - New Patient This patient is new to me today: Yes Date on this admission: 09/06/18 - Critical Care Critical Care patient: Yes Total Critical Care Time (in minutes): 45 Critical Care Statement: The care of this patient involved high complexity decision making to prevent further life threatening deterioration of the patient 's condition and/or to evaluate & treat vital organ system(s) failure or risk of failure.
[2018-09-06] MEDS ORDERED: SODIUM POLYSTYRENE SULFONATE 15 GM/60 ML BOTTLE PO ONE (22:45)
[2018-09-06] MEDS ORDERED: ONDANSETRON 4 MG/2 ML VIAL IVPB PRN (22:45)
[2018-09-06] MEDS ORDERED: SODIUM BICARBONATE 4.2% 5 MEQ/10 ML DISP.SYRIN IVPUSH ONE (22:45)
[2018-09-06] MEDS ORDERED: SODIUM CHLORIDE 1,000 ML IV SCH (22:45)
[2018-09-06] MEDS ORDERED: DOCUSATE SODIUM 100 MG CAPSULE (FP) PO ONE (22:54)
[2018-09-06] MEDS: DOCUSATE SODIUM 100 MG CAPSULE (FP) PO SCH (22:58)
[2018-09-06 23:36] LABS: ANION GAP 10 MMOL/L (8-16); BLOOD UREA NITROGEN 16 mg/dL (7-18); CHLORIDE 112 mmol/L (98-107); CO2 20 mmol/L (21-32); GLUCOSE,RANDOM 260 mg/dL (74-106); MAGNESIUM 1.8 mg/dL (1.8-2.4); POTASSIUM 4.5 mmol/L (3.5-5.1); SODIUM 143 mmol/L (136-145)
[2018-09-06 23:42] VITALS: BMI 21.7
--- NOTE | 2018-09-07 00:01 | PN ---
Progress Note (short form) - Note Progress Note: Upon arrival in the ICU, patient was awake, alert and asking for food. Vitals 120/55 mmHg, P-110 bpm, RR 16- Spo2 95 % Repeat BMP was pending 12:00 repeat BMP noted. Anion Gap closed. Patient to eat sandwich then give Levemir 10 Units and stop the Insulin drip after an hour.
[2018-09-07] MEDS ORDERED: INSULIN (LEVEMIR) 100 UNITS/ML UNITS SQ ONE (00:12)
[2018-09-07 00:23] LABS: PHOSPHOROUS 0.9 mg/dL (2.5-4.9)
[2018-09-07] MEDS: GABAPENTIN 400 MG CAPSULE (FP) PO SCH ×3 (06:19→23:31)
[2018-09-07 06:20] LABS: BASO % 0.6 % (0-2.0); EOS % 0.5 % (0-4.5); HEMATOCRIT 29.6 % (32.4-45.2); HEMOGLOBIN 9.8 GM/dL (10.7-15.3); LYMPH % 20.2 % (8-40); MCH 31.7 pg (25.7-33.7); MCHC 33.1 g/dl (32.0-36.0); MEAN CELL VOLUME 95.8 fl (80-96); MEAN PLT VOLUME 11.6 fl (7.5-11.1); MONO % 8.4 % (3.8-10.2); NEUT % 70.3 % (42.8-82.8); PLATELET COUNT 124 K/MM3 (134-434); RBC 3.09 M/mm3 (3.60-5.2); RDW 17.4 % (11.6-15.6); WHITE BLOOD COUNT 6.6 K/mm3 (4.0-10.0)
[2018-09-07] MEDS: INSULIN SLIDING SCALE (NOVOLOG) 1 VIAL SQ SCH ×4 (06:20→23:33)
[2018-09-07 06:59] LABS: ALBUMIN 2.3 g/dl (3.4-5.0); ALK PHOS 52 U/L (45-117); ANION GAP 10 MMOL/L (8-16); BILIRUBIN,TOTAL 0.4 mg/dL (0.2-1); BLOOD UREA NITROGEN 12 mg/dL (7-18); CALCIUM 8.5 mg/dL (8.5-10.1); CHLORIDE 112 mmol/L (98-107); CO2 20 mmol/L (21-32); GLUCOSE,RANDOM 245 mg/dL (74-106); MAGNESIUM 1.8 mg/dL (1.8-2.4); PHOSPHOROUS 1.6 mg/dL (2.5-4.9); POTASSIUM 3.8 mmol/L (3.5-5.1); SGOT/AST 8 U/L (15-37); SGPT/ALT 15 U/L (13-61); SODIUM 142 mmol/L (136-145); TOT PROT 5.6 g/dl (6.4-8.2)
--- NOTE | 2018-09-07 08:16 | PN ---
Physical Exam: SUBJECTIVE: Patient seen and examined this AM. She states that she is feeling better today and is no longer having any abdominal pain. OBJECTIVE: Vital Signs Period Temp Pulse Resp BP Sys/Haskins Pulse Ox Last 24 Hr 98.2 F-98.6 F 80-113 17-20 110-151/65-86 99-99 GEN: A&O, no acute distress HEENT: dry mucus membranes NECK: supple HEART: RRR, no murmurs noted LUNGS: CTA b/l ABDOMEN: Soft, nontender to palpation, normoactive bowel sounds EXTREMITIES: Laboratory Results - last 24 hr 09/06/18 09/06/18 09/06/18 14:45 15:21 15:21 WBC 6.8 RBC 4.18 Hgb 13.5 Hct 41.5 D MCV 99.3 H MCH 32.3 MCHC 32.5 RDW 18.4 H Plt Count 156 D MPV 12.4 H Absolute Neuts (auto) 6.0 Neutrophils % 87.7 H D Lymphocytes % 8.0 D Monocytes % 3.4 L Eosinophils % 0.1 D Basophils % 0.8 Nucleated RBC % 0 PT with INR 10.00 INR 0.85 Anticoagulation Therapy Puncture Site ABG pH ABG pCO2 at Pt Temp ABG pO2 at Pt Temp ABG HCO3 ABG O2 Sat (Measured) ABG O2 Content ABG Base Excess Jd Test VBG pH POC VBG pCO2 POC VBG pO2 VBG HCO3 VBG O2 Sat (Martha) VBG Base Excess Carboxyhemoglobin Methemoglobin O2 Delivery Device Oxygen Flow Rate Vent Mode Vent Rate Mechanical Rate Pressure Support Vent Sodium Potassium Chloride Carbon Dioxide Anion Gap BUN Creatinine Creat Clearance w eGFR POC Glucometer > 600 Random Glucose Calcium Phosphorus Magnesium Total Bilirubin AST ALT Alkaline Phosphatase Creatine Kinase Troponin I Total Protein Albumin Urine Color Urine Appearance Urine pH Ur Specific [place] Urine Protein Urine Glucose (UA) Urine Ketones Urine Blood Urine Nitrite Urine Bilirubin Urine Urobilinogen Ur Leukocyte Esterase Acetone, Qual Influenza A (Rapid) Influenza B (Rapid) 09/06/18 09/06/18 09/06/18 15:21 15:21 15:21 WBC RBC Hgb Hct MCV MCH MCHC RDW Plt Count MPV Absolute Neuts (auto) Neutrophils % Lymphocytes % Monocytes % Eosinophils % Basophils % Nucleated RBC % PT with INR INR Anticoagulation Therapy Puncture Site ABG pH ABG pCO2 at Pt Temp ABG pO2 at Pt Temp ABG HCO3 ABG O2 Sat (Measured) ABG O2 Content ABG Base Excess Jd Test VBG pH 7.21 L POC VBG pCO2 35.0 L POC VBG pO2 43.5 H VBG HCO3 13.5 L VBG O2 Sat (Martha) 69.4 L VBG Base Excess -13.1 L Carboxyhemoglobin Methemoglobin O2 Delivery Device Oxygen Flow Rate Vent Mode Vent Rate Mechanical Rate Pressure Support Vent Sodium 139 Potassium 5.8 H Chloride 101 Carbon Dioxide 13 L Anion Gap 25 H BUN 26 H Creatinine 1.6 H Creat Clearance w eGFR 32.45 POC Glucometer Random Glucose 708 H* Calcium 10.8 H Phosphorus Cancelled Magnesium Total Bilirubin 0.4 AST 8 L ALT 18 Alkaline Phosphatase 85 Creatine Kinase 41 Troponin I < 0.02 Total Protein 8.2 Albumin 3.4 Urine Color Urine Appearance Urine pH Ur Specific [place] Urine Protein Urine Glucose (UA) Urine Ketones Urine Blood Urine Nitrite Urine Bilirubin Urine Urobilinogen Ur Leukocyte Esterase Acetone, Qual Cancelled Influenza A (Rapid) Influenza B (Rapid) 09/06/18 09/06/18 09/06/18 15:21 18:18 19:03 WBC RBC Hgb Hct MCV MCH MCHC RDW Plt Count MPV Absolute Neuts (auto) Neutrophils % Lymphocytes % Monocytes % Eosinophils % Basophils % Nucleated RBC % PT with INR INR Anticoagulation Therapy No Result Required. Puncture Site Right radial ABG pH 7.30 L ABG pCO2 at Pt Temp 24.8 L ABG pO2 at Pt Temp 103 ABG HCO3 11.8 L ABG O2 Sat (Measured) 97.3 ABG O2 Content 22.7 H ABG Base Excess -12.8 L Jd Test Positive VBG pH POC VBG pCO2 POC VBG pO2 VBG HCO3 VBG O2 Sat (Martha) VBG Base Excess Carboxyhemoglobin 1.3 Methemoglobin 0.7 O2 Delivery Device Room air Oxygen Flow Rate 21% Vent Mode No Result Required. Vent Rate No Result Required. Mechanical Rate No Result Required. Pressure Support Vent No Result Required. Sodium Potassium Chloride Carbon Dioxide Anion Gap BUN Creatinine Creat Clearance w eGFR POC Glucometer Random Glucose Calcium Phosphorus 4.4 Magnesium 2.6 H Total Bilirubin AST ALT Alkaline Phosphatase Creatine Kinase Troponin I Total Protein Albumin Urine Color Colorless Urine Appearance Clear Urine pH 5.0 Ur Specific [place] 1.017 Urine Protein Negative Urine Glucose (UA) 3+ H Urine Ketones 2+ H Urine Blood Negative Urine Nitrite Negative Urine Bilirubin Negative Urine Urobilinogen Negative Ur Leukocyte Esterase Negative Acetone, Qual Positive large 3+ H Influenza A (Rapid) Influenza B (Rapid) 09/06/18 09/06/18 09/06/18 19:05 20:27 21:45 WBC RBC Hgb Hct MCV MCH MCHC RDW Plt Count MPV Absolute Neuts (auto) Neutrophils % Lymphocytes % Monocytes % Eosinophils % Basophils % Nucleated RBC % PT with INR INR Anticoagulation Therapy Puncture Site ABG pH ABG pCO2 at Pt Temp ABG pO2 at Pt Temp ABG HCO3 ABG O2 Sat (Measured) ABG O2 Content ABG Base Excess Jd Test VBG pH POC VBG pCO2 POC VBG pO2 VBG HCO3 VBG O2 Sat (Martha) VBG Base Excess Carboxyhemoglobin Methemoglobin O2 Delivery Device Oxygen Flow Rate Vent Mode Vent Rate Mechanical Rate Pressure Support Vent Sodium Potassium Chloride Carbon Dioxide Anion Gap BUN Creatinine Creat Clearance w eGFR POC Glucometer 443 306 Random Glucose Calcium Phosphorus Magnesium Total Bilirubin AST ALT Alkaline Phosphatase Creatine Kinase Cancelled Troponin I Cancelled Total Protein Albumin Urine Color Urine Appearance Urine pH Ur Specific [place] Urine Protein Urine Glucose (UA) Urine Ketones Urine Blood Urine Nitrite Urine Bilirubin Urine Urobilinogen Ur Leukocyte Esterase Acetone, Qual Influenza A (Rapid) Influenza B (Rapid) 09/06/18 09/06/18 09/06/18 21:45 21:45 22:40 WBC RBC Hgb Hct MCV MCH MCHC RDW Plt Count MPV Absolute Neuts (auto) Neutrophils % Lymphocytes % Monocytes % Eosinophils % Basophils % Nucleated RBC % PT with INR INR Anticoagulation Therapy Puncture Site ABG pH ABG pCO2 at Pt Temp ABG pO2 at Pt Temp ABG HCO3 ABG O2 Sat (Measured) ABG O2 Content ABG Base Excess Jd Test VBG pH POC VBG pCO2 POC VBG pO2 VBG HCO3 VBG O2 Sat (Martha) VBG Base Excess Carboxyhemoglobin Methemoglobin O2 Delivery Device Oxygen Flow Rate Vent Mode Vent Rate Mechanical Rate Pressure Support Vent Sodium 143 Potassium 4.5 Chloride 112 H Carbon Dioxide 20 L Anion Gap 10 BUN 16 Creatinine 1.0 Creat Clearance w eGFR 55.82 POC Glucometer 225 Random Glucose 260 H Calcium 9.0 Phosphorus 0.9 L* Magnesium 1.8 Total Bilirubin AST ALT Alkaline Phosphatase Creatine Kinase 50 Troponin I 0.02 Total Protein Albumin Urine Color Urine Appearance Urine pH Ur Specific [place] Urine Protein Urine Glucose (UA) Urine Ketones Urine Blood Urine Nitrite Urine Bilirubin Urine Urobilinogen Ur Leukocyte Esterase Acetone, Qual Influenza A (Rapid) Negative Influenza B (Rapid) Negative 09/07/18 09/07/18 09/07/18 00:47 05:16 05:30 WBC 6.6 RBC 3.09 L Hgb 9.8 L Hct 29.6 L D MCV 95.8 MCH 31.7 MCHC 33.1 RDW 17.4 H Plt Count 124 L D MPV 11.6 H Absolute Neuts (auto) 4.6 Neutrophils % 70.3 Lymphocytes % 20.2 D Monocytes % 8.4 D Eosinophils % 0.5 D Basophils % 0.6 Nucleated RBC % 0 PT with INR INR Anticoagulation Therapy Puncture Site ABG pH ABG pCO2 at Pt Temp ABG pO2 at Pt Temp ABG HCO3 ABG O2 Sat (Measured) ABG O2 Content ABG Base Excess Jd Test VBG pH POC VBG pCO2 POC VBG pO2 VBG HCO3 VBG O2 Sat (Martha) VBG Base Excess Carboxyhemoglobin Methemoglobin O2 Delivery Device Oxygen Flow Rate Vent Mode Vent Rate Mechanical Rate Pressure Support Vent Sodium Potassium Chloride Carbon Dioxide Anion Gap BUN Creatinine Creat Clearance w eGFR POC Glucometer 179 243 Random Glucose Calcium Phosphorus Magnesium Total Bilirubin AST ALT Alkaline Phosphatase Creatine Kinase Troponin I Total Protein Albumin Urine Color Urine Appearance Urine pH Ur Specific [place] Urine Protein Urine Glucose (UA) Urine Ketones Urine Blood Urine Nitrite Urine Bilirubin Urine Urobilinogen Ur Leukocyte Esterase Acetone, Qual Influenza A (Rapid) Influenza B (Rapid) 09/07/18 05:30 WBC RBC Hgb Hct MCV MCH MCHC RDW Plt Count MPV Absolute Neuts (auto) Neutrophils % Lymphocytes % Monocytes % Eosinophils % Basophils % Nucleated RBC % PT with INR INR Anticoagulation Therapy Puncture Site ABG pH ABG pCO2 at Pt Temp ABG pO2 at Pt Temp ABG HCO3 ABG O2 Sat (Measured) ABG O2 Content ABG Base Excess Jd Test VBG pH POC VBG pCO2 POC VBG pO2 VBG HCO3 VBG O2 Sat (Martha) VBG Base Excess Carboxyhemoglobin Methemoglobin O2 Delivery Device Oxygen Flow Rate Vent Mode Vent Rate Mechanical Rate Pressure Support Vent Sodium 142 Potassium 3.8 Chloride 112 H Carbon Dioxide 20 L Anion Gap 10 BUN 12 Creatinine 1.0 Creat Clearance w eGFR 55.82 POC Glucometer Random Glucose 245 H Calcium 8.5 Phosphorus 1.6 L Magnesium 1.8 Total Bilirubin 0.4 AST 8 L ALT 15 Alkaline Phosphatase 52 Creatine Kinase Troponin I Total Protein 5.6 L Albumin 2.3 L Urine Color Urine Appearance Urine pH Ur Specific [place] Urine Protein Urine Glucose (UA) Urine Ketones Urine Blood Urine Nitrite Urine Bilirubin Urine Urobilinogen Ur Leukocyte Esterase Acetone, Qual Influenza A (Rapid) Influenza B (Rapid) Active Medications Generic Name Dose Route Start Last Admin Trade Name Freq PRN Reason Stop Dose Admin Albuterol Sulfate 1 amp 09/06/18 22:24 Ventolin 0.083% Nebulizer Soln - NEB Q6H PRN SHORT OF BREATH/WHEEZING Aspirin 81 mg 09/06/18 20:15 09/06/18 20:59 Asa - PO 81 mg DAILY [facility] Administration Chlorhexidine Gluconate 1 applic 09/07/18 22:00 Hibiclens For Decolonization - TP HS [facility] Docusate Sodium 100 mg 09/06/18 22:45 09/06/18 22:58 Colace - PO 100 mg BID [facility] Administration Gabapentin 400 mg 09/07/18 06:00 09/07/18 06:19 Neurontin - PO 400 mg TID [facility] Administration Heparin Sodium (Porcine) 5,000 unit 09/07/18 10:00 Heparin - SQ BID [facility] Ceftriaxone Sodium 1 gm/ 50 mls @ 100 mls/hr 09/06/18 18:30 09/06/18 20:59 Dextrose IVPB 100 mls/hr DAILY [facility] Administration Protocol Insulin Aspart 1 vial 09/07/18 07:00 09/07/18 06:20 Novolog Vial Sliding Scale - SQ 4 units ACHS [facility] Administration Protocol Metoclopramide HCl 10 mg 09/06/18 22:24 Reglan Injection - IVPUSH Q6H PRN NAUSEA AND/OR VOMITING Mirtazapine 7.5 mg 09/07/18 22:00 Remeron - PO HS [facility] Mupirocin 1 applic 09/07/18 10:00 Bactroban Ointment (For Decolonization) - NS 09/12/18 09:59 BID [facility] Ondansetron HCl 4 mg 09/06/18 22:45 Zofran Injection IVPB Q6H PRN NAUSEA Polyethylene Glycol 17 gm 09/06/18 22:18 Miralax (For Daily Use) - PO DAILY PRN CONSTIPATION Potassium Phos/Sodium Phos 1 packet 09/07/18 10:00 Phos-Nak Packet - PO BID [facility] Rosuvastatin Calcium 40 mg 09/07/18 22:00 Crestor - PO HS [facility] Senna 2 tab 09/06/18 22:18 Senna - PO HS PRN CONSTIPATION ASSESSMENT/PLAN: Patient is a 62 year old female with past medical history of HTN, HLD, IDDM, CKD , Hx of DKA and recurrent UTI, CVA, presenting with abdominal pain, nausea, vomiting. Found with ALEX and Hyperglycemia NEURO -No neurological deficits CARDIOVASCULAR -CAD Continue home ASA 81 mg PO Daily -HLD Crestor 40 mg PO HS PULMONARY -No respiratory compromise at this point GI -Tolerating diet well -Can have zofran for nausea RENAL -ALEX BUN/Cr noted on admission, resolved after fluids ENDOCRINE -IDDM with acute hyperglycemia given 10 units SQ insulin in ED and insulin ggt Hyperglycemia improved, restarted home levemir Continue fluid resuscitation PROPHYLAXIS -Heparin 5000 units SQ BID FEN -LR @ 100 cc/hr -monitor and replete -Diabetic Diet DISPOSITION Stable for transfer to Med/Surg Visit type - Emergency Visit Emergency Visit: Yes ED Registration Date: 09/06/18 Care time: The patient presented to the Emergency Department on the above date and was hospitalized for further evaluation of their emergent condition. - New Patient This patient is new to me today: Yes Date on this admission: 09/07/18 - Critical Care Critical Care patient: No
[2018-09-07] MEDS ORDERED: cefTRIAXone SODIUM 1 GM VIAL ONE (09:39)
[2018-09-07] MEDS ORDERED: DEXTROSE 5%-WATER - 50 ML IVPB ONE (09:39)
[2018-09-07] MEDS: ASPIRIN 81 MG CHEWABLE TABLETS PO SCH (09:42)
[2018-09-07] MEDS: DOCUSATE SODIUM 100 MG CAPSULE (FP) PO SCH ×2 (09:42→23:32)
[2018-09-07] MEDS: CEFTRIAXONE 1 GM in DEXTROSE 5%-WATER - 50 ML IVPB SCH (09:43)
[2018-09-07] MEDS ORDERED: HEPARIN NA (PORCINE) 5,000 UNITS/ML 1ML VIAL SQ SCH (10:00)
[2018-09-07] MEDS ORDERED: NAPH,MB-DB/K PH,MBDB POWDER PACKET PO SCH (10:00)
[2018-09-07] MEDS ORDERED: MUPIROCIN 2% TOPICAL OINTMENT FOR DECOLONIZATION NS SCH (10:00)
--- NOTE | 2018-09-07 11:09 | EKG ---
Test Reason : Blood Pressure : / mmHG Vent. Rate : 108 BPM Atrial Rate : 108 BPM P-R Int : 136 ms QRS Dur : 080 ms QT Int : 338 ms P-R-T Axes : 074 033 069 degrees QTc Int : 452 ms SINUS TACHYCARDIA BIATRIAL ENLARGEMENT ABNORMAL ECG WHEN COMPARED WITH ECG OF 19-AUG-2018 23:43, NO SIGNIFICANT CHANGE WAS FOUND Confirmed by YUSEF MCCARTHY MD ([id number]) on 09/07/2018 11:09:42 AM Referred By: Confirmed By:YUSEF MCCARTHY MD
--- NOTE | 2018-09-07 11:31 | PN ---
Progress Note, Physician Chief Complaint: patient came in with nausea and hyperglycemia now bgm is better labs noted- now normal AG complaining of epigastric pain - Current Medication List Current Medications: Active Medications Albuterol Sulfate (Ventolin 0.083% Nebulizer Soln -) 1 amp NEB Q6H PRN PRN Reason: SHORT OF BREATH/WHEEZING Aspirin (Asa -) 81 mg PO DAILY [facility] Last Admin: 09/07/18 09:42 Dose: 81 mg Chlorhexidine Gluconate (Hibiclens For Decolonization -) 1 applic TP HS [facility] Docusate Sodium (Colace -) 100 mg PO BID [facility] Last Admin: 09/07/18 09:42 Dose: 100 mg Gabapentin (Neurontin -) 400 mg PO TID [facility] Last Admin: 09/07/18 06:19 Dose: 400 mg Heparin Sodium (Porcine) (Heparin -) 5,000 unit SQ BID [facility] Last Admin: 09/07/18 09:43 Dose: 5,000 unit Ceftriaxone Sodium 1 gm/ (Dextrose) 50 mls @ 100 mls/hr IVPB DAILY [facility]; Protocol Last Admin: 09/07/18 09:43 Dose: 100 mls/hr Insulin Aspart (Novolog Vial Sliding Scale -) 1 vial SQ ACHS [facility]; Protocol Last Admin: 09/07/18 06:20 Dose: 4 units Metoclopramide HCl (Reglan Injection -) 10 mg IVPUSH Q6H PRN PRN Reason: NAUSEA AND/OR VOMITING Mirtazapine (Remeron -) 7.5 mg PO HS [facility] Mupirocin (Bactroban Ointment (For Decolonization) -) 1 applic NS BID [facility] Stop: 09/12/18 09:59 Ondansetron HCl (Zofran Injection) 4 mg IVPB Q6H PRN PRN Reason: NAUSEA Polyethylene Glycol (Miralax (For Daily Use) -) 17 gm PO DAILY PRN PRN Reason: CONSTIPATION Potassium Phos/Sodium Phos (Phos-Nak Packet -) 1 packet PO BID [facility] Last Admin: 09/07/18 09:42 Dose: 1 packet Rosuvastatin Calcium (Crestor -) 40 mg PO HS [facility] Senna (Senna -) 2 tab PO HS PRN PRN Reason: CONSTIPATION - Objective Vital Signs: Vital Signs Temperature 99.2 F 09/07/18 09:00 Pulse Rate 99 H 09/07/18 09:00 Respiratory Rate 18 09/07/18 09:00 Blood Pressure 119/63 09/07/18 09:00 O2 Sat by Pulse Oximetry (%) 97 09/07/18 09:00 Constitutional: Yes: Calm Cardiovascular: Yes: Regular Rate and Rhythm, S1, S2 Respiratory: Yes: CTA Bilaterally Gastrointestinal: Yes: Normal Bowel Sounds, Soft Labs: CBC, BMP 09/07/18 05:30 09/07/18 05:30 INR, PTT INR 0.85 (0.83-1.09) 09/06/18 15:21 Problem List - Problems (1) Diabetic ketoacidosis Assessment/Plan: improved now eating got levemir today in morning on sliding scale endocrine eval reglan every 6 hrs Code(s): E13.10 - OTH DIABETES MELLITUS WITH KETOACIDOSIS WITHOUT COMA Qualifiers: Diabetes mellitus type: type 2 Diabetes mellitus complication detail: without coma Qualified Code(s): E11.10 - Type 2 diabetes mellitus with ketoacidosis without coma (2) ALEX (acute kidney injury) Assessment/Plan: improved with hydration Code(s): N17.9 - ACUTE KIDNEY FAILURE, UNSPECIFIED (3) Electrolyte abnormality Assessment/Plan: repleted repeat labs Code(s): E87.8 - OTH DISORDERS OF ELECTROLYTE AND FLUID BALANCE, NEC (4) Anemia Assessment/Plan: now h/h on baseline previous one was hemoconcentrated Code(s): D64.9 - ANEMIA, UNSPECIFIED Assessment/Plan transfer to [facility] surg
--- NOTE | 2018-09-07 12:30 | PN ---
Teaching Attending Note Name of Resident: Damon Parrish ATTENDING PHYSICIAN STATEMENT I saw and evaluated the patient. I reviewed the resident's note and discussed the case with the resident. I agree with the resident's findings and plan as documented. SUBJECTIVE: Patient seen and examined in the ICU. Awake and alert. Reports mild, non- specific abdominal discomfort. Currently off IV Insulin drip. No CP or SOB. Intake & Output 09/04/18 09/05/18 09/06/18 09/07/18 23:59 23:59 23:59 23:59 Output Total 600 Balance -600 Weight 122 lb 6.4 oz 122 lb 1 oz Last Vital Signs Temp Pulse Resp BP Pulse Ox 99.2 F 99 H 18 119/63 97 09/07/18 09:00 09/07/18 09:00 09/07/18 09:00 09/07/18 09:00 09/07/18 09:00 Active Medications Albuterol Sulfate (Ventolin 0.083% Nebulizer Soln -) 1 amp NEB Q6H PRN PRN Reason: SHORT OF BREATH/WHEEZING Aspirin (Asa -) 81 mg PO DAILY [facility] Last Admin: 09/07/18 09:42 Dose: 81 mg Chlorhexidine Gluconate (Hibiclens For Decolonization -) 1 applic TP HS JULIANA Docusate Sodium (Colace -) 100 mg PO BID [facility] Last Admin: 09/07/18 09:42 Dose: 100 mg Gabapentin (Neurontin -) 400 mg PO TID [facility] Last Admin: 09/07/18 06:19 Dose: 400 mg Heparin Sodium (Porcine) (Heparin -) 5,000 unit SQ BID [facility] Last Admin: 09/07/18 09:43 Dose: 5,000 unit Ceftriaxone Sodium 1 gm/ (Dextrose) 50 mls @ 100 mls/hr IVPB DAILY [facility]; Protocol Last Admin: 09/07/18 09:43 Dose: 100 mls/hr Insulin Aspart (Novolog Vial Sliding Scale -) 1 vial SQ ACHS [facility]; Protocol Last Admin: 09/07/18 11:27 Dose: 4 units Insulin Detemir (Levemir Vial) 10 units SQ HS JULIANA Insulin Detemir (Levemir Vial) 15 units SQ AM JULIANA Metoclopramide HCl (Reglan Injection -) 10 mg IVPUSH Q6H PRN PRN Reason: NAUSEA AND/OR VOMITING Mirtazapine (Remeron -) 7.5 mg PO HS [facility] Mupirocin (Bactroban Ointment (For Decolonization) -) 1 applic NS BID [facility] Stop: 09/12/18 09:59 Last Admin: 09/07/18 11:33 Dose: 1 applic Ondansetron HCl (Zofran Injection) 4 mg IVPB Q6H PRN PRN Reason: NAUSEA Polyethylene Glycol (Miralax (For Daily Use) -) 17 gm PO DAILY PRN PRN Reason: CONSTIPATION Potassium Phos/Sodium Phos (Phos-Nak Packet -) 1 packet PO BID [facility] Last Admin: 09/07/18 09:42 Dose: 1 packet Rosuvastatin Calcium (Crestor -) 40 mg PO HS [facility] Senna (Senna -) 2 tab PO HS PRN PRN Reason: CONSTIPATION Constitutional: Yes: Thin Eyes: Yes: Conjunctiva Clear, EOM Intact HENT: Yes: Atraumatic Neck: Yes: Supple Cardiovascular: Yes: S1, S2 Respiratory: Yes: CTA Bilaterally Gastrointestinal: Yes: Soft, mild non-specific epigastric tenderness Renal/: No: CVA Tenderness Edema: No Neurological: Yes: Alert, Oriented Labs: Laboratory Results - last 24 hr 09/06/18 09/06/18 09/06/18 14:45 15:21 15:21 WBC 6.8 RBC 4.18 Hgb 13.5 Hct 41.5 D MCV 99.3 H MCH 32.3 MCHC 32.5 RDW 18.4 H Plt Count 156 D MPV 12.4 H Absolute Neuts (auto) 6.0 Neutrophils % 87.7 H D Lymphocytes % 8.0 D Monocytes % 3.4 L Eosinophils % 0.1 D Basophils % 0.8 Nucleated RBC % 0 PT with INR 10.00 INR 0.85 Anticoagulation Therapy Puncture Site ABG pH ABG pCO2 at Pt Temp ABG pO2 at Pt Temp ABG HCO3 ABG O2 Sat (Measured) ABG O2 Content ABG Base Excess Jd Test VBG pH POC VBG pCO2 POC VBG pO2 VBG HCO3 VBG O2 Sat (Martha) VBG Base Excess Carboxyhemoglobin Methemoglobin O2 Delivery Device Oxygen Flow Rate Vent Mode Vent Rate Mechanical Rate Pressure Support Vent Sodium Potassium Chloride Carbon Dioxide Anion Gap BUN Creatinine Creat Clearance w eGFR POC Glucometer > 600 Random Glucose Calcium Phosphorus Magnesium Total Bilirubin AST ALT Alkaline Phosphatase Creatine Kinase Troponin I Total Protein Albumin Urine Color Urine Appearance Urine pH Ur Specific [place] Urine Protein Urine Glucose (UA) Urine Ketones Urine Blood Urine Nitrite Urine Bilirubin Urine Urobilinogen Ur Leukocyte Esterase Acetone, Qual Influenza A (Rapid) Influenza B (Rapid) 09/06/18 09/06/18 09/06/18 15:21 15:21 15:21 WBC RBC Hgb Hct MCV MCH MCHC RDW Plt Count MPV Absolute Neuts (auto) Neutrophils % Lymphocytes % Monocytes % Eosinophils % Basophils % Nucleated RBC % PT with INR INR Anticoagulation Therapy Puncture Site ABG pH ABG pCO2 at Pt Temp ABG pO2 at Pt Temp ABG HCO3 ABG O2 Sat (Measured) ABG O2 Content ABG Base Excess Jd Test VBG pH 7.21 L POC VBG pCO2 35.0 L POC VBG pO2 43.5 H VBG HCO3 13.5 L VBG O2 Sat (Martha) 69.4 L VBG Base Excess -13.1 L Carboxyhemoglobin Methemoglobin O2 Delivery Device Oxygen Flow Rate Vent Mode Vent Rate Mechanical Rate Pressure Support Vent Sodium 139 Potassium 5.8 H Chloride 101 Carbon Dioxide 13 L Anion Gap 25 H BUN 26 H Creatinine 1.6 H Creat Clearance w eGFR 32.45 POC Glucometer Random Glucose 708 H* Calcium 10.8 H Phosphorus Cancelled Magnesium Total Bilirubin 0.4 AST 8 L ALT 18 Alkaline Phosphatase 85 Creatine Kinase 41 Troponin I < 0.02 Total Protein 8.2 Albumin 3.4 Urine Color Urine Appearance Urine pH Ur Specific [place] Urine Protein Urine Glucose (UA) Urine Ketones Urine Blood Urine Nitrite Urine Bilirubin Urine Urobilinogen Ur Leukocyte Esterase Acetone, Qual Cancelled Influenza A (Rapid) Influenza B (Rapid) 09/06/18 09/06/18 09/06/18 15:21 18:18 19:03 WBC RBC Hgb Hct MCV MCH MCHC RDW Plt Count MPV Absolute Neuts (auto) Neutrophils % Lymphocytes % Monocytes % Eosinophils % Basophils % Nucleated RBC % PT with INR INR Anticoagulation Therapy No Result Required. Puncture Site Right radial ABG pH 7.30 L ABG pCO2 at Pt Temp 24.8 L ABG pO2 at Pt Temp 103 ABG HCO3 11.8 L ABG O2 Sat (Measured) 97.3 ABG O2 Content 22.7 H ABG Base Excess -12.8 L Jd Test Positive VBG pH POC VBG pCO2 POC VBG pO2 VBG HCO3 VBG O2 Sat (Martha) VBG Base Excess Carboxyhemoglobin 1.3 Methemoglobin 0.7 O2 Delivery Device Room air Oxygen Flow Rate 21% Vent Mode No Result Required. Vent Rate No Result Required. Mechanical Rate No Result Required. Pressure Support Vent No Result Required. Sodium Potassium Chloride Carbon Dioxide Anion Gap BUN Creatinine Creat Clearance w eGFR POC Glucometer Random Glucose Calcium Phosphorus 4.4 Magnesium 2.6 H Total Bilirubin AST ALT Alkaline Phosphatase Creatine Kinase Troponin I Total Protein Albumin Urine Color Colorless Urine Appearance Clear Urine pH 5.0 Ur Specific [place] 1.017 Urine Protein Negative Urine Glucose (UA) 3+ H Urine Ketones 2+ H Urine Blood Negative Urine Nitrite Negative Urine Bilirubin Negative Urine Urobilinogen Negative Ur Leukocyte Esterase Negative Acetone, Qual Positive large 3+ H Influenza A (Rapid) Influenza B (Rapid) 09/06/18 09/06/18 09/06/18 19:05 20:27 21:45 WBC RBC Hgb Hct MCV MCH MCHC RDW Plt Count MPV Absolute Neuts (auto) Neutrophils % Lymphocytes % Monocytes % Eosinophils % Basophils % Nucleated RBC % PT with INR INR Anticoagulation Therapy Puncture Site ABG pH ABG pCO2 at Pt Temp ABG pO2 at Pt Temp ABG HCO3 ABG O2 Sat (Measured) ABG O2 Content ABG Base Excess Jd Test VBG pH POC VBG pCO2 POC VBG pO2 VBG HCO3 VBG O2 Sat (Martha) VBG Base Excess Carboxyhemoglobin Methemoglobin O2 Delivery Device Oxygen Flow Rate Vent Mode Vent Rate Mechanical Rate Pressure Support Vent Sodium Potassium Chloride Carbon Dioxide Anion Gap BUN Creatinine Creat Clearance w eGFR POC Glucometer 443 306 Random Glucose Calcium Phosphorus Magnesium Total Bilirubin AST ALT Alkaline Phosphatase Creatine Kinase Cancelled Troponin I Cancelled Total Protein Albumin Urine Color Urine Appearance Urine pH Ur Specific [place] Urine Protein Urine Glucose (UA) Urine Ketones Urine Blood Urine Nitrite Urine Bilirubin Urine Urobilinogen Ur Leukocyte Esterase Acetone, Qual Influenza A (Rapid) Influenza B (Rapid) 09/06/18 09/06/18 09/06/18 21:45 21:45 22:40 WBC RBC Hgb Hct MCV MCH MCHC RDW Plt Count MPV Absolute Neuts (auto) Neutrophils % Lymphocytes % Monocytes % Eosinophils % Basophils % Nucleated RBC % PT with INR INR Anticoagulation Therapy Puncture Site ABG pH ABG pCO2 at Pt Temp ABG pO2 at Pt Temp ABG HCO3 ABG O2 Sat (Measured) ABG O2 Content ABG Base Excess Jd Test VBG pH POC VBG pCO2 POC VBG pO2 VBG HCO3 VBG O2 Sat (Martha) VBG Base Excess Carboxyhemoglobin Methemoglobin O2 Delivery Device Oxygen Flow Rate Vent Mode Vent Rate Mechanical Rate Pressure Support Vent Sodium 143 Potassium 4.5 Chloride 112 H Carbon Dioxide 20 L Anion Gap 10 BUN 16 Creatinine 1.0 Creat Clearance w eGFR 55.82 POC Glucometer 225 Random Glucose 260 H Calcium 9.0 Phosphorus 0.9 L* Magnesium 1.8 Total Bilirubin AST ALT Alkaline Phosphatase Creatine Kinase 50 Troponin I 0.02 Total Protein Albumin Urine Color Urine Appearance Urine pH Ur Specific [place] Urine Protein Urine Glucose (UA) Urine Ketones Urine Blood Urine Nitrite Urine Bilirubin Urine Urobilinogen Ur Leukocyte Esterase Acetone, Qual Influenza A (Rapid) Negative Influenza B (Rapid) Negative 09/07/18 09/07/18 09/07/18 00:47 05:16 05:30 WBC 6.6 RBC 3.09 L Hgb 9.8 L Hct 29.6 L D MCV 95.8 MCH 31.7 MCHC 33.1 RDW 17.4 H Plt Count 124 L D MPV 11.6 H Absolute Neuts (auto) 4.6 Neutrophils % 70.3 Lymphocytes % 20.2 D Monocytes % 8.4 D Eosinophils % 0.5 D Basophils % 0.6 Nucleated RBC % 0 PT with INR INR Anticoagulation Therapy Puncture Site ABG pH ABG pCO2 at Pt Temp ABG pO2 at Pt Temp ABG HCO3 ABG O2 Sat (Measured) ABG O2 Content ABG Base Excess Jd Test VBG pH POC VBG pCO2 POC VBG pO2 VBG HCO3 VBG O2 Sat (Martha) VBG Base Excess Carboxyhemoglobin Methemoglobin O2 Delivery Device Oxygen Flow Rate Vent Mode Vent Rate Mechanical Rate Pressure Support Vent Sodium Potassium Chloride Carbon Dioxide Anion Gap BUN Creatinine Creat Clearance w eGFR POC Glucometer 179 243 Random Glucose Calcium Phosphorus Magnesium Total Bilirubin AST ALT Alkaline Phosphatase Creatine Kinase Troponin I Total Protein Albumin Urine Color Urine Appearance Urine pH Ur Specific [place] Urine Protein Urine Glucose (UA) Urine Ketones Urine Blood Urine Nitrite Urine Bilirubin Urine Urobilinogen Ur Leukocyte Esterase Acetone, Qual Influenza A (Rapid) Influenza B (Rapid) 09/07/18 09/07/18 05:30 11:19 WBC RBC Hgb Hct MCV MCH MCHC RDW Plt Count MPV Absolute Neuts (auto) Neutrophils % Lymphocytes % Monocytes % Eosinophils % Basophils % Nucleated RBC % PT with INR INR Anticoagulation Therapy Puncture Site ABG pH ABG pCO2 at Pt Temp ABG pO2 at Pt Temp ABG HCO3 ABG O2 Sat (Measured) ABG O2 Content ABG Base Excess Jd Test VBG pH POC VBG pCO2 POC VBG pO2 VBG HCO3 VBG O2 Sat (Martha) VBG Base Excess Carboxyhemoglobin Methemoglobin O2 Delivery Device Oxygen Flow Rate Vent Mode Vent Rate Mechanical Rate Pressure Support Vent Sodium 142 Potassium 3.8 Chloride 112 H Carbon Dioxide 20 L Anion Gap 10 BUN 12 Creatinine 1.0 Creat Clearance w eGFR 55.82 POC Glucometer 207 Random Glucose 245 H Calcium 8.5 Phosphorus 1.6 L Magnesium 1.8 Total Bilirubin 0.4 AST 8 L ALT 15 Alkaline Phosphatase 52 Creatine Kinase 30 Troponin I < 0.02 Total Protein 5.6 L Albumin 2.3 L Urine Color Urine Appearance Urine pH Ur Specific [place] Urine Protein Urine Glucose (UA) Urine Ketones Urine Blood Urine Nitrite Urine Bilirubin Urine Urobilinogen Ur Leukocyte Esterase Acetone, Qual Influenza A (Rapid) Influenza B (Rapid) Assessment/Plan: Resolved DKA / Hyperglycemia Resolving ALEX DM R/O UTI (?) DM Gastroparesis Resolved Hyperkalemia HTN IVF Insulin coverage Noted empiric ABX O2 as needed Strict I & O PO as tolerated OOB to chair Dr Mccabe
[2018-09-07] MEDS ORDERED: PT OWN MED DRAWER 7, Y5N ONE (14:30)
[2018-09-07] MEDS ORDERED: POTASSIUM CHLORIDE TABS 20 MEQ TABLET.ER (FP) PO ONE (14:35)
--- NOTE | 2018-09-07 15:40 | CONSULT ---
Consult Consult Specialty:: endocrinology Referred by:: hospitalist Reason for Consultation:: DKA,hyperglycemia uncontrolled dm - History of Present Illness Chief Complaint: NAUSEA AND WEAK History of Present Illness: 62 y/o woman with a past medical history of poorly controlled DM II, diabetic polyneuropathy, HTN, CVA. Who presents to the ED with dizziness, polyuria, polydipsia, malaise and nausea . Patient felt progressively worse and experienced decreased appetite along with her BG being 25mg/dl at home which prompted her visit to the ED. In ed bs noted to be elevated and found to have dka. she has had several admissions with similar episodes of labile blood sugars.she denies cp fever,chills,cough. 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) Endocrine: Yes: Diabetes Mellitus - Past Surgical History Past Surgical History: Yes: , Hysterectomy, Tubal Ligation - Alcohol/Substance Use Hx Alcohol Use: No History of Substance Use: reports: None - Smoking History Smoking history: Never smoked Have you smoked in the past 12 months: No - Social History Usual Living Arrangement: With Child ADL: Family Assistance Occupation: retired History of Recent Travel: No Home Medications - Allergies Allergies/Adverse Reactions: Allergies Allergy/AdvReac Type Severity Reaction Status Date / Time No Known Allergies Allergy Verified 09/06/18 13:54 - Home Medications Home Medications: Ambulatory Orders Gabapentin [Neurontin -] 400 mg PO TID #30 capsule MDD 3 01/02/18 Rosuvastatin [Crestor -] 40 mg PO HS #30 tablet MDD 1 01/02/18 Polyethylene Glycol 3350 [Miralax 119 gm Btl -] 17 gm PO BID bottle 05/23/18 Aspirin [ASA -] 81 mg PO DAILY tab.chew 06/20/18 Docusate Sodium [Colace -] 300 mg PO HS #90 capsule 06/20/18 Metformin HCl [Glucophage] 1,000 mg PO BID #60 tablet 06/20/18 Sennosides [Senna -] 2 tab PO HS #60 tablet 06/20/18 Mirtazapine [Remeron -] 7.5 mg PO HS #30 tablet 07/12/18 Polyethylene Glycol 3350 [Miralax 119 gm Btl -] 17 gm PO BID #2 bottle 07/12/18 Sitagliptin Phosphate [Januvia] 100 mg PO DAILY #30 tablet 07/12/18 Clindamycin [Cleocin -] 300 mg PO TID #21 capsule 07/27/18 Insulin (Novolog) [Novolog -] 0 units SQ AC #1 ea 07/27/18 Insulin (Levemir) [Levemir Vial] 15 units SQ HS units 08/22/18 Insulin (Levemir) [Levemir Vial] 20 units SQ AM units 08/22/18 Family Disease History - Family Disease History Family Disease History: Diabetes: Mother (HTN), Other: Father ( [phone]) unknown) Review of Systems - Review of Systems Constitutional: reports: Lethargy, Loss of Appetite, Weakness Eyes: reports: Blurred Vision HENT: reports: No Symptoms Neck: reports: No Symptoms Cardiovascular: reports: Shortness of Breath Respiratory: reports: Exercise Intolerance, SOB on Exertion Gastrointestinal: reports: Bloating Genitourinary: reports: No Symptoms Breasts: reports: No Symptoms Reported Musculoskeletal: reports: Muscle Cramps, Muscle Weakness Integumentary: reports: No Symptoms Neurological: reports: Numbness, Weakness Endocrine: reports: Unexplained Weight Loss Physical Exam Vital Signs: Vital Signs Temperature 98.9 F 09/07/18 14:00 Pulse Rate 97 H 09/07/18 14:00 Respiratory Rate 22 H 09/07/18 14:00 Blood Pressure 112/58 L 09/07/18 14:00 O2 Sat by Pulse Oximetry (%) 97 09/07/18 09:00 Constitutional: Yes: Calm Eyes: Yes: EOM Intact HENT: Yes: Normocephalic Neck: Yes: Trachea Midline Respiratory: Yes: CTA Bilaterally Gastrointestinal: Yes: Normal Bowel Sounds ...Rectal Exam: Yes: Deferred Renal/: Yes: WNL Breast(s): Yes: WNL Musculoskeletal: Yes: WNL Extremities: Yes: WNL Neurological: Yes: Alert, Oriented Labs: CBC, BMP 09/07/18 05:30 09/07/18 05:30 Problem List - Problems (1) Diabetic ketoacidosis Code(s): E13.10 - OTH DIABETES MELLITUS WITH KETOACIDOSIS WITHOUT COMA Qualifiers: Diabetes mellitus type: type 2 Diabetes mellitus complication detail: without coma Qualified Code(s): E11.10 - Type 2 diabetes mellitus with ketoacidosis without coma (2) Electrolyte abnormality Code(s): E87.8 - OTH DISORDERS OF ELECTROLYTE AND FLUID BALANCE, NEC (3) Prophylactic measure Code(s): Z29.9 - ENCOUNTER FOR PROPHYLACTIC MEASURES, UNSPECIFIED (4) ALEX (acute kidney injury) Code(s): N17.9 - ACUTE KIDNEY FAILURE, UNSPECIFIED (5) Abdominal pain Code(s): R10.9 - UNSPECIFIED ABDOMINAL PAIN (6) Abscesses of both axillae Code(s): L02.411 - CUTANEOUS ABSCESS OF RIGHT AXILLA; L02.412 - CUTANEOUS ABSCESS OF LEFT AXILLA (7) Acute renal failure Code(s): N17.9 - ACUTE KIDNEY FAILURE, UNSPECIFIED Assessment/Plan Current Active Problems Diabetic ketoacidosis (Acute) Electrolyte abnormality (Acute) Prophylactic measure (Acute) diabetic neuropathy Abnormal Lab Results 09/06/18 09/06/18 09/06/18 15:21 15:21 15:21 RBC Hgb Hct MCV 99.3 H RDW 18.4 H Plt Count MPV 12.4 H Neutrophils % 87.7 H D Monocytes % 3.4 L ABG pH ABG pCO2 at Pt Temp ABG HCO3 ABG O2 Content ABG Base Excess VBG pH 7.21 L POC VBG pCO2 35.0 L POC VBG pO2 43.5 H VBG HCO3 13.5 L VBG O2 Sat (Martha) 69.4 L VBG Base Excess -13.1 L Potassium 5.8 H Chloride Carbon Dioxide 13 L Anion Gap 25 H BUN 26 H Creatinine 1.6 H Random Glucose 708 H* Calcium 10.8 H Phosphorus Magnesium AST 8 L Total Protein Albumin Urine Glucose (UA) Urine Ketones Acetone, Qual 09/06/18 09/06/18 09/06/18 15:21 18:18 19:03 RBC Hgb Hct MCV RDW Plt Count MPV Neutrophils % Monocytes % ABG pH 7.30 L ABG pCO2 at Pt Temp 24.8 L ABG HCO3 11.8 L ABG O2 Content 22.7 H ABG Base Excess -12.8 L VBG pH POC VBG pCO2 POC VBG pO2 VBG HCO3 VBG O2 Sat (Martha) VBG Base Excess Potassium Chloride Carbon Dioxide Anion Gap BUN Creatinine Random Glucose Calcium Phosphorus Magnesium 2.6 H AST Total Protein Albumin Urine Glucose (UA) 3+ H Urine Ketones 2+ H Acetone, Qual Positive large 3+ H 09/06/18 09/07/18 09/07/18 21:45 05:30 05:30 RBC 3.09 L Hgb 9.8 L Hct 29.6 L D MCV RDW 17.4 H Plt Count 124 L D MPV 11.6 H Neutrophils % Monocytes % ABG pH ABG pCO2 at Pt Temp ABG HCO3 ABG O2 Content ABG Base Excess VBG pH POC VBG pCO2 POC VBG pO2 VBG HCO3 VBG O2 Sat (Martha) VBG Base Excess Potassium Chloride 112 H 112 H Carbon Dioxide 20 L 20 L Anion Gap BUN Creatinine Random Glucose 260 H 245 H Calcium Phosphorus 0.9 L* 1.6 L Magnesium AST 8 L Total Protein 5.6 L Albumin 2.3 L Urine Glucose (UA) Urine Ketones Acetone, Qual Laboratory Tests 07/09/18 09/07/18 09/07/18 05:44 05:30 11:19 Sodium 142 Potassium 3.8 Carbon Dioxide 20 L Anion Gap 10 BUN 12 Creatinine 1.0 Creat Clearance w eGFR 55.82 POC Glucometer 207 Hemoglobin A1c % 15.7 H plan: nutrition consult diet support for family support as well given she lives with daughter psych evaluation depression levemir bid doses bgm qid novolog coverage Current Medications Generic Name Dose Route Start Last Admin Trade Name Freq PRN Reason Stop Dose Admin Albuterol Sulfate 1 amp 09/06/18 22:24 Ventolin 0.083% Nebulizer Soln - NEB Q6H PRN SHORT OF BREATH/WHEEZING Aspirin 81 mg 09/06/18 20:15 09/07/18 09:42 Asa - PO 81 mg DAILY JULIANA Administration Chlorhexidine Gluconate 1 applic 09/07/18 22:00 Hibiclens For Decolonization - TP HS JULIANA Docusate Sodium 100 mg 09/06/18 22:45 09/07/18 09:42 Colace - PO 100 mg BID JULIANA Administration Gabapentin 400 mg 09/07/18 06:00 09/07/18 13:36 Neurontin - PO 400 mg TID JULIANA Administration Heparin Sodium (Porcine) 5,000 unit 09/07/18 10:00 09/07/18 09:43 Heparin - SQ 5,000 unit BID JULIANA Administration Ceftriaxone Sodium 1 gm/ 50 mls @ 100 mls/hr 09/06/18 18:30 09/07/18 09:43 Dextrose IVPB 100 mls/hr DAILY JULIANA Administration Protocol Insulin Aspart 1 vial 09/07/18 07:00 09/07/18 11:27 Novolog Vial Sliding Scale - SQ 4 units ACHS JULIANA Administration Protocol Insulin Detemir 10 units 09/07/18 22:00 Levemir Vial SQ HS JULIANA Insulin Detemir 15 units 09/08/18 07:00 Levemir Vial SQ AM JULIANA Metoclopramide HCl 10 mg 09/07/18 16:30 Reglan - PO ACHS JULIANA Mirtazapine 7.5 mg 09/07/18 22:00 Remeron - PO HS JULIANA Mupirocin 1 applic 09/07/18 10:00 09/07/18 11:33 Bactroban Ointment (For Decolonization) - NS 09/12/18 09:59 1 applic BID JULIANA Administration Ondansetron HCl 4 mg 09/06/18 22:45 Zofran Injection IVPB Q6H PRN NAUSEA Polyethylene Glycol 17 gm 09/06/18 22:18 Miralax (For Daily Use) - PO DAILY PRN CONSTIPATION Potassium Phos/Sodium Phos 1 packet 09/07/18 10:00 09/07/18 09:42 Phos-Nak Packet - PO 1 packet BID JULIANA Administration Rosuvastatin Calcium 40 mg 09/07/18 22:00 Crestor - PO HS JULIANA Senna 2 tab 09/06/18 22:18 Senna - PO HS PRN CONSTIPATION
[2018-09-07] MEDS: METOCLOPRAMIDE HCL 10 MG TABLET (FP) PO SCH ×2 (19:12→23:34)
[2018-09-07] MEDS ORDERED: ALBUTEROL SO4 0.083% IH SOL 2.5 MG/3 ML VIAL.NEB. NEB PRN (21:16)
[2018-09-07] MEDS ORDERED: SENNOSIDES 8.6MG TABLET (FP) PO PRN (21:16)
[2018-09-07] MEDS ORDERED: ONDANSETRON 4 MG/2 ML VIAL IVPB PRN (21:16)
[2018-09-07] MEDS ORDERED: POLYETHYLENE GLYCOL 3350 119 GM BTL PO PRN (21:16)
[2018-09-07] MEDS ORDERED: MIRTAZAPINE 15 MG TABLET (FP) PO SCH (22:00)
[2018-09-07] MEDS ORDERED: CHLORHEXIDINE GLUCONATE 4% CLEANSER FOR DECOLONIZATION TP SCH (22:00)
[2018-09-07] MEDS ORDERED: ROSUVASTATIN CA 20 MG TABLET (FP) PO SCH (22:00)
[2018-09-07] MEDS: HEPARIN NA (PORCINE) 5,000 UNITS/ML 1ML VIAL SQ SCH (23:31)
[2018-09-07] MEDS: ROSUVASTATIN CA 20 MG TABLET (FP) PO SCH (23:31)
[2018-09-07] MEDS: MIRTAZAPINE 15 MG TABLET (FP) PO SCH (23:34)
[2018-09-07] MEDS: NAPH,MB-DB/K PH,MBDB POWDER PACKET PO SCH (23:34)
[2018-09-07] MEDS: INSULIN (NOVOLOG) ASPART 100 UNITS/ML 10ML VIAL SQ ONE (23:34)
[2018-09-07] MEDS: INSULIN (LEVEMIR) 100 UNITS/ML UNITS SQ SCH (23:34)
[2018-09-07] MEDS ORDERED: SODIUM CHLORIDE 1,000 ML IV SCH (23:45)
[2018-09-08] MEDS: INSULIN SLIDING SCALE (NOVOLOG) 1 VIAL SQ SCH ×4 (06:07→21:34)
[2018-09-08] MEDS: GABAPENTIN 400 MG CAPSULE (FP) PO SCH ×3 (06:10→21:32)
[2018-09-08] MEDS: METOCLOPRAMIDE HCL 10 MG TABLET (FP) PO SCH ×4 (06:10→21:33)
[2018-09-08] MEDS: INSULIN (LEVEMIR) 100 UNITS/ML UNITS SQ SCH ×2 (06:13→21:33)
[2018-09-08 06:56] LABS: EOS % 1.8 % (0-4.5); HEMATOCRIT 31.4 % (32.4-45.2); HEMOGLOBIN 10.5 GM/dL (10.7-15.3); LYMPH % 24.8 % (8-40); MCH 31.9 pg (25.7-33.7); MCHC 33.4 g/dl (32.0-36.0); MEAN CELL VOLUME 95.5 fl (80-96); MONO % 8.4 % (3.8-10.2); PLATELET COUNT 134 K/MM3 (134-434); RBC 3.28 M/mm3 (3.60-5.2); RDW 17.7 % (11.6-15.6); WHITE BLOOD COUNT 4.6 K/mm3 (4.0-10.0)
[2018-09-08 07:41] LABS: ALBUMIN 2.4 g/dl (3.4-5.0); ALK PHOS 61 U/L (45-117); ANION GAP 7 MMOL/L (8-16); BILIRUBIN,TOTAL 0.3 mg/dL (0.2-1); BLOOD UREA NITROGEN 16 mg/dL (7-18); CALCIUM 8.5 mg/dL (8.5-10.1); CHLORIDE 115 mmol/L (98-107); CO2 27 mmol/L (21-32); CREATININE 0.9 mg/dL (0.55-1.3); GLUCOSE,RANDOM 100 mg/dL (74-106); MAGNESIUM 1.8 mg/dL (1.8-2.4); PHOSPHOROUS 2.3 mg/dL (2.5-4.9); POTASSIUM 3.3 mmol/L (3.5-5.1); SGOT/AST 14 U/L (15-37); SGPT/ALT 14 U/L (13-61); SODIUM 148 mmol/L (136-145); TOT PROT 6.1 g/dl (6.4-8.2)
[2018-09-08 07:55] LABS: CHOLESTEROL 172 mg/dL (50-200); HDL CHOLESTEROL 72 mg/dL (40-60); TRIGLYCERIDES 96 mg/dL (0-150)
--- NOTE | 2018-09-08 10:07 | PN ---
Progress Note, Physician Chief Complaint: Hyperglycemia Hypokalemia History of Present Illness: NAD non compliant with her medications outpatient Seen by Endocrinology - Current Medication List Current Medications: Active Medications Albuterol Sulfate (Ventolin 0.083% Nebulizer Soln -) 1 amp NEB Q6H PRN PRN Reason: SHORT OF BREATH/WHEEZING Aspirin (Asa -) 81 mg PO DAILY [facility] Docusate Sodium (Colace -) 100 mg PO BID [facility] Last Admin: 09/07/18 23:32 Dose: 100 mg Gabapentin (Neurontin -) 400 mg PO TID [facility] Last Admin: 09/08/18 06:10 Dose: 400 mg Heparin Sodium (Porcine) (Heparin -) 5,000 unit SQ BID [facility] Last Admin: 09/07/18 23:31 Dose: 5,000 unit Insulin Aspart (Novolog Vial Sliding Scale -) 1 vial SQ [facility]; Protocol Last Admin: 09/08/18 06:07 Dose: Not Given Insulin Aspart (Novolog Vial) 15 units SQ ONCE ONE Stop: 09/08/18 23:32 Last Admin: 09/07/18 23:34 Dose: 15 units Insulin Detemir (Levemir Vial) 10 units SQ HS [facility] Last Admin: 09/07/18 23:34 Dose: 10 units Insulin Detemir (Levemir Vial) 15 units SQ AM [facility] Last Admin: 09/08/18 06:13 Dose: 15 units Metoclopramide HCl (Reglan -) 10 mg PO [facility] Last Admin: 09/08/18 06:10 Dose: 10 mg Mirtazapine (Remeron -) 7.5 mg PO [facility] Last Admin: 09/07/18 23:34 Dose: 7.5 mg Ondansetron HCl (Zofran Injection) 4 mg IVPB Q6H PRN PRN Reason: NAUSEA Polyethylene Glycol (Miralax (For Daily Use) -) 17 gm PO DAILY PRN PRN Reason: CONSTIPATION Potassium Chloride (K-Dur -) 40 meq PO DAILY [facility] Potassium Phos/Sodium Phos (Phos-Nak Packet -) 1 packet PO BID [facility] Last Admin: 09/07/18 23:34 Dose: 1 packet Rosuvastatin Calcium (Crestor -) 40 mg PO [facility] Last Admin: 09/07/18 23:31 Dose: 40 mg Senna (Senna -) 2 tab PO HS PRN PRN Reason: CONSTIPATION - Objective Vital Signs: Vital Signs Temperature 98.4 F 09/08/18 05:56 Pulse Rate 80 09/08/18 05:56 Respiratory Rate 18 09/08/18 05:56 Blood Pressure 109/63 09/08/18 05:56 O2 Sat by Pulse Oximetry (%) 97 09/07/18 21:00 Constitutional: Yes: Well Nourished, No Distress, Calm Cardiovascular: Yes: Regular Rate and Rhythm Respiratory: Yes: Regular Gastrointestinal: Yes: Normal Bowel Sounds, Soft Genitourinary: Yes: WNL Musculoskeletal: Yes: WNL Extremities: Yes: WNL Edema: No Peripheral Pulses WNL: Yes Neurological: Yes: Alert, Oriented Psychiatric: Yes: Alert, Oriented Labs: CBC, BMP 09/08/18 05:20 09/08/18 05:20 INR, PTT INR 0.85 (0.83-1.09) 09/06/18 15:21 Problem List - Problems (1) Diabetic ketoacidosis Assessment/Plan: -resolved Code(s): E13.10 - OTH DIABETES MELLITUS WITH KETOACIDOSIS WITHOUT COMA Qualifiers: Diabetes mellitus type: type 2 Diabetes mellitus complication detail: without coma Qualified Code(s): E11.10 - Type 2 diabetes mellitus with ketoacidosis without coma (2) ALEX (acute kidney injury) Assessment/Plan: -resolved with IVF Code(s): N17.9 - ACUTE KIDNEY FAILURE, UNSPECIFIED (3) Abdominal pain Assessment/Plan: -2/2 to gastroparesis Code(s): R10.9 - UNSPECIFIED ABDOMINAL PAIN (4) Anemia Assessment/Plan: -chronic -monitor trend Code(s): D64.9 - ANEMIA, UNSPECIFIED (5) Diabetes mellitus Assessment/Plan: -BGM AC HS -Insulin: Novolog+ Levemir -Diabetic low sodium diet -Endocrinology consult Code(s): E11.9 - TYPE 2 DIABETES MELLITUS WITHOUT COMPLICATIONS (6) Hypokalemia Assessment/Plan: -mild -KCl 40 meq once -repeat labs in AM- if normal, can be discharged Code(s): E87.6 - HYPOKALEMIA Assessment/Plan see problem list self ambulatory
[2018-09-08] MEDS: ASPIRIN 81 MG CHEWABLE TABLETS PO SCH (10:23)
[2018-09-08] MEDS: NAPH,MB-DB/K PH,MBDB POWDER PACKET PO SCH ×2 (10:23→21:32)
[2018-09-08] MEDS: HEPARIN NA (PORCINE) 5,000 UNITS/ML 1ML VIAL SQ SCH ×2 (10:23→21:32)
[2018-09-08] MEDS: DOCUSATE SODIUM 100 MG CAPSULE (FP) PO SCH ×2 (10:23→21:33)
[2018-09-08] MEDS: POTASSIUM CHLORIDE TABS 20 MEQ TABLET.ER (FP) PO SCH (10:27)
[2018-09-08] MEDS: ROSUVASTATIN CA 20 MG TABLET (FP) PO SCH (21:33)
[2018-09-08] MEDS: MIRTAZAPINE 15 MG TABLET (FP) PO SCH (21:34)
[2018-09-09] MEDS: INSULIN (NOVOLOG) ASPART 100 UNITS/ML 10ML VIAL SQ ONE (00:12)
[2018-09-09] MEDS: INSULIN SLIDING SCALE (NOVOLOG) 1 VIAL SQ SCH ×2 (06:29→12:21)
[2018-09-09] MEDS: GABAPENTIN 400 MG CAPSULE (FP) PO SCH ×2 (06:29→13:39)
[2018-09-09] MEDS: METOCLOPRAMIDE HCL 10 MG TABLET (FP) PO SCH ×2 (06:29→12:20)
[2018-09-09] MEDS: INSULIN (LEVEMIR) 100 UNITS/ML UNITS SQ SCH (06:30)
[2018-09-09 07:13] LABS: HEMATOCRIT 27.8 % (32.4-45.2); HEMOGLOBIN 9.4 GM/dL (10.7-15.3); MCH 32.1 pg (25.7-33.7); MCHC 33.9 g/dl (32.0-36.0); MEAN CELL VOLUME 94.7 fl (80-96); MEAN PLT VOLUME 10.4 fl (7.5-11.1); PLATELET COUNT 104 K/MM3 (134-434); RBC 2.93 M/mm3 (3.60-5.2); RDW 17.4 % (11.6-15.6); WHITE BLOOD COUNT 3.9 K/mm3 (4.0-10.0)
[2018-09-09 07:38] LABS: ANION GAP 5 MMOL/L (8-16); BLOOD UREA NITROGEN 15 mg/dL (7-18); CALCIUM 8.5 mg/dL (8.5-10.1); CHLORIDE 114 mmol/L (98-107); CO2 29 mmol/L (21-32); CREATININE 0.5 mg/dL (0.55-1.3); GLUCOSE,RANDOM 70 mg/dL (74-106); POTASSIUM 3.6 mmol/L (3.5-5.1); SODIUM 148 mmol/L (136-145)
[2018-09-09] MEDS: DOCUSATE SODIUM 100 MG CAPSULE (FP) PO SCH (09:50)
[2018-09-09] MEDS: POTASSIUM CHLORIDE TABS 20 MEQ TABLET.ER (FP) PO SCH (09:50)
[2018-09-09] MEDS: HEPARIN NA (PORCINE) 5,000 UNITS/ML 1ML VIAL SQ SCH (09:51)
[2018-09-09] MEDS: NAPH,MB-DB/K PH,MBDB POWDER PACKET PO SCH (09:51)
[2018-09-09] MEDS: ASPIRIN 81 MG CHEWABLE TABLETS PO SCH (09:51)
--- NOTE | 2018-09-09 10:24 | PN ---
Progress Note, Physician Chief Complaint: Hyperglycemia Hypokalemia History of Present Illness: NAD non compliant with her medications outpatient Seen by Endocrinology - Current Medication List Current Medications: Active Medications Albuterol Sulfate (Ventolin 0.083% Nebulizer Soln -) 1 amp NEB Q6H PRN PRN Reason: SHORT OF BREATH/WHEEZING Aspirin (Asa -) 81 mg PO DAILY [facility] Last Admin: 09/09/18 09:51 Dose: 81 mg Docusate Sodium (Colace -) 100 mg PO BID [facility] Last Admin: 09/09/18 09:50 Dose: 100 mg Gabapentin (Neurontin -) 400 mg PO TID [facility] Last Admin: 09/09/18 06:29 Dose: 400 mg Heparin Sodium (Porcine) (Heparin -) 5,000 unit SQ BID [facility] Last Admin: 09/09/18 09:51 Dose: 5,000 unit Insulin Aspart (Novolog Vial Sliding Scale -) 1 vial SQ [facility]; Protocol Last Admin: 09/09/18 06:29 Dose: Not Given Insulin Detemir (Levemir Vial) 10 units SQ HS [facility] Last Admin: 09/08/18 21:33 Dose: 10 units Insulin Detemir (Levemir Vial) 15 units SQ AM [facility] Last Admin: 09/09/18 06:30 Dose: Not Given Metoclopramide HCl (Reglan -) 10 mg PO [facility] Last Admin: 09/09/18 06:29 Dose: 10 mg Mirtazapine (Remeron -) 7.5 mg PO [facility] Last Admin: 09/08/18 21:34 Dose: 7.5 mg Ondansetron HCl (Zofran Injection) 4 mg IVPB Q6H PRN PRN Reason: NAUSEA Polyethylene Glycol (Miralax (For Daily Use) -) 17 gm PO DAILY PRN PRN Reason: CONSTIPATION Potassium Chloride (K-Dur -) 40 meq PO DAILY [facility] Last Admin: 09/09/18 09:50 Dose: 40 meq Potassium Phos/Sodium Phos (Phos-Nak Packet -) 1 packet PO BID [facility] Last Admin: 09/09/18 09:51 Dose: 1 packet Rosuvastatin Calcium (Crestor -) 40 mg PO [facility] Last Admin: 09/08/18 21:33 Dose: 40 mg Senna (Senna -) 2 tab PO HS PRN PRN Reason: CONSTIPATION - Objective Vital Signs: Vital Signs Temperature 98.4 F 09/09/18 06:00 Pulse Rate 87 09/09/18 06:00 Respiratory Rate 18 09/09/18 06:00 Blood Pressure 117/64 09/09/18 06:00 O2 Sat by Pulse Oximetry (%) 97 09/08/18 21:00 Constitutional: Yes: Well Nourished, No Distress, Calm Cardiovascular: Yes: Regular Rate and Rhythm Gastrointestinal: Yes: Normal Bowel Sounds, Soft Genitourinary: Yes: WNL Musculoskeletal: Yes: WNL Extremities: Yes: WNL Edema: No Peripheral Pulses WNL: Yes Neurological: Yes: Alert, Oriented Psychiatric: Yes: Alert, Oriented Labs: CBC, BMP 09/09/18 05:45 09/09/18 05:45 INR, PTT INR 0.85 (0.83-1.09) 09/06/18 15:21 Problem List - Problems (1) Diabetic ketoacidosis Assessment/Plan: -resolved Code(s): E13.10 - OTH DIABETES MELLITUS WITH KETOACIDOSIS WITHOUT COMA Qualifiers: Diabetes mellitus type: type 2 Diabetes mellitus complication detail: without coma Qualified Code(s): E11.10 - Type 2 diabetes mellitus with ketoacidosis without coma (2) ALEX (acute kidney injury) Assessment/Plan: -resolved with IVF Code(s): N17.9 - ACUTE KIDNEY FAILURE, UNSPECIFIED (3) Abdominal pain Assessment/Plan: -2/2 to gastroparesis Code(s): R10.9 - UNSPECIFIED ABDOMINAL PAIN (4) Anemia Assessment/Plan: -chronic -monitor trend -check stool OB Code(s): D64.9 - ANEMIA, UNSPECIFIED (5) Diabetes mellitus Assessment/Plan: -BGM AC HS -Insulin: Novolog+ Levemir -Diabetic low sodium diet -Endocrinology consult Code(s): E11.9 - TYPE 2 DIABETES MELLITUS WITHOUT COMPLICATIONS (6) Hypokalemia Assessment/Plan: -resolved Code(s): E87.6 - HYPOKALEMIA (7) Hypernatremia Assessment/Plan: monitor trend Code(s): E87.0 - HYPEROSMOLALITY AND HYPERNATREMIA Assessment/Plan see problem list
--- NOTE | 2018-09-09 11:41 | DS ---
Physical Examination Vital Signs: Vital Signs Temperature 98.4 F 09/09/18 06:00 Pulse Rate 87 09/09/18 06:00 Respiratory Rate 18 09/09/18 06:00 Blood Pressure 117/64 09/09/18 06:00 O2 Sat by Pulse Oximetry (%) 97 09/08/18 21:00 Findings/Remarks: 62 y/o woman with a past medical history of poorly controlled DM II, Diabetic Neuropathy, HTN, CVA. Who presents to the ED with dizziness, polyuria, polydipsia, malaise and nausea over the last three days. Patient felt progressively worse and experienced decreased appetite along with her BG being 25mg/dl at home which prompted her visit to the ED. She denies fever, chills, cough, LEE, blurred vision, SOB, CP, palpitations. Of note, pt has had one admission every month over the last four months for DKA or severe hyperglycemia. Patient endorses taking meds as prescribed but offers no explanation for the chronicity of her severe hyperglycemia. Constitutional: Yes: Well Nourished, No Distress, Calm Cardiovascular: Yes: Regular Rate and Rhythm Respiratory: Yes: Regular Gastrointestinal: Yes: Normal Bowel Sounds Musculoskeletal: Yes: WNL Extremities: Yes: WNL Edema: No Peripheral Pulses WNL: Yes Neurological: Yes: Alert, Oriented Psychiatric: Yes: Alert, Oriented Labs: CBC, BMP 09/09/18 05:45 09/09/18 05:45 Discharge Summary Reason For Visit: DIABETIC KETOACIDOSIS Current Active Problems Diabetic ketoacidosis (Acute) Electrolyte abnormality (Acute) Prophylactic measure (Acute) Hospital Course: Laboratory Last Values WBC 3.9 K/mm3 (4.0-10.0) L 09/09/18 05:45 RBC 2.93 M/mm3 (3.60-5.2) L 09/09/18 05:45 Hgb 9.4 GM/dL (10.7-15.3) L 09/09/18 05:45 Hct 27.8 % (32.4-45.2) L 09/09/18 05:45 MCV 94.7 fl (80-96) 09/09/18 05:45 MCH 32.1 pg (25.7-33.7) 09/09/18 05:45 MCHC 33.9 g/dl (32.0-36.0) 09/09/18 05:45 RDW 17.4 % (11.6-15.6) H 09/09/18 05:45 Plt Count 104 K/MM3 (134-434) L D 09/09/18 05:45 MPV 10.4 fl (7.5-11.1) 09/09/18 05:45 Absolute Neuts (auto) 3.0 K/mm3 (1.5-8.0) 09/08/18 05:20 Neutrophils % 65.0 % (42.8-82.8) 09/08/18 05:20 Lymphocytes % 24.8 % (8-40) D 09/08/18 05:20 Monocytes % 8.4 % (3.8-10.2) 09/08/18 05:20 Eosinophils % 1.8 % (0-4.5) D 09/08/18 05:20 Basophils % 0.0 % (0-2.0) 09/08/18 05:20 Nucleated RBC % 0 % (0-0) 09/08/18 05:20 PT with INR 10.00 SEC (9.7-13.0) 09/06/18 15:21 INR 0.85 (0.83-1.09) 09/06/18 15:21 Anticoagulation Therapy No Result Required. 09/06/18 19:03 Puncture Site Right radial 09/06/18 19:03 ABG pH 7.30 (7.35-7.45) L 09/06/18 19:03 ABG pCO2 at Pt Temp 24.8 mmHg (35-45) L 09/06/18 19:03 ABG pO2 at Pt Temp 103 mmHg (80-105) 09/06/18 19:03 ABG HCO3 11.8 mmol/L (22-27) L 09/06/18 19:03 ABG O2 Sat (Measured) 97.3 % (95-98) 09/06/18 19:03 ABG O2 Content 22.7 % vol (15-22) H 09/06/18 19:03 ABG Base Excess -12.8 meq/l (-2-2) L 09/06/18 19:03 Jd Test Positive 09/06/18 19:03 VBG pH 7.21 (7.31-7.41) L 09/06/18 15:21 POC VBG pCO2 35.0 mmHg (41-51) L 09/06/18 15:21 POC VBG pO2 43.5 mmHg (30-40) H 09/06/18 15:21 VBG HCO3 13.5 mmol/L (23-29) L 09/06/18 15:21 VBG O2 Sat (Martha) 69.4 % (70-80) L 09/06/18 15:21 VBG Base Excess -13.1 meq/l (-2-2) L 09/06/18 15:21 Carboxyhemoglobin 1.3 % (0-2) 09/06/18 19:03 Methemoglobin 0.7 % (0-2) 09/06/18 19:03 O2 Delivery Device Room air 09/06/18 19:03 Oxygen Flow Rate 21% 09/06/18 19:03 Vent Mode No Result Required. 09/06/18 19:03 Vent Rate No Result Required. 09/06/18 19:03 Mechanical Rate No Result Required. 09/06/18 19:03 Pressure Support Vent No Result Required. 09/06/18 19:03 Sodium 148 mmol/L (136-145) H 09/09/18 05:45 Potassium 3.6 mmol/L (3.5-5.1) 09/09/18 05:45 Chloride 114 mmol/L (98-107) H 09/09/18 05:45 Carbon Dioxide 29 mmol/L (21-32) 09/09/18 05:45 Anion Gap 5 MMOL/L (8-16) L 09/09/18 05:45 BUN 15 mg/dL (7-18) 09/09/18 05:45 Creatinine 0.5 mg/dL (0.55-1.3) L 09/09/18 05:45 Creat Clearance w eGFR 124.22 (>60) 09/09/18 05:45 POC Glucometer 67 UNITS (80-120) 09/09/18 06:28 Random Glucose 70 mg/dL (74-106) L 09/09/18 05:45 Hemoglobin A1c % 15.0 % (4.2-6.3) H 09/08/18 05:20 Calcium 8.5 mg/dL (8.5-10.1) 09/09/18 05:45 Phosphorus 2.3 mg/dL (2.5-4.9) L 09/08/18 05:20 Magnesium 1.8 mg/dL (1.8-2.4) 09/08/18 05:20 Total Bilirubin 0.3 mg/dL (0.2-1) 09/08/18 05:20 AST 14 U/L (15-37) L 09/08/18 05:20 ALT 14 U/L (13-61) 09/08/18 05:20 Alkaline Phosphatase 61 U/L (45-117) 09/08/18 05:20 Creatine Kinase 30 U/L (26-192) 09/07/18 05:30 Troponin I < 0.02 ng/ml (0.00-0.05) 09/07/18 05:30 Total Protein 6.1 g/dl (6.4-8.2) L 09/08/18 05:20 Albumin 2.4 g/dl (3.4-5.0) L 09/08/18 05:20 Triglycerides 96 mg/dL (0-150) 09/08/18 05:20 Cholesterol 172 mg/dL (50-200) 09/08/18 05:20 Total LDL Cholesterol 80 mg/dL (5-100) 09/08/18 05:20 HDL Cholesterol 72 mg/dL (40-60) H 09/08/18 05:20 Urine Color Colorless 09/06/18 18:18 Urine Appearance Clear 09/06/18 18:18 Urine pH 5.0 (5.0-8.0) 09/06/18 18:18 Ur Specific [place] 1.017 (1.010-1.035) 09/06/18 18:18 Urine Protein Negative (NEGATIVE) 09/06/18 18:18 Urine Glucose (UA) 3+ (NEGATIVE) H 09/06/18 18:18 Urine Ketones 2+ (NEGATIVE) H 09/06/18 18:18 Urine Blood Negative (NEGATIVE) 09/06/18 18:18 Urine Nitrite Negative (NEGATIVE) 09/06/18 18:18 Urine Bilirubin Negative (<2.0 mg/dL) 09/06/18 18:18 Urine Urobilinogen Negative mg/dL (0.2-1.0) 09/06/18 18:18 Ur Leukocyte Esterase Negative (NEGATIVE) 09/06/18 18:18 Acetone, Qual Positive large 3+ (NEGATIVE) H 09/06/18 15:21 Influenza A (Rapid) Negative 09/06/18 21:45 Influenza B (Rapid) Negative 09/06/18 21:45 Microbiology 09/06/18 18:17 Urine - Urine Clean Catch Urine Culture - Final Vital Signs Temp 98.4 F 09/09/18 06:00 Pulse 87 09/09/18 06:00 Resp 18 09/09/18 06:00 BP 117/64 09/09/18 06:00 Pulse Ox 97 09/08/18 21:00 Intake & Output 09/08/18 09/08/18 09/09/18 11:59 23:59 11:59 Intake Total 1350 Balance 1350 Weight 55.384 kg 55.111 kg Intake: IV 900 s/l 900 Oral 450 Other: Voiding Method Diaper Toilet Toilet # Unmeasured Voids Void 2 1 Bowel Movement No Weight Measurement Method Chair Scale Chair Scale Condition: Stable - Instructions Disposition: HOME - Home Medications Comprehensive Discharge Medication List: Ambulatory Orders Gabapentin [Neurontin -] 400 mg PO TID #30 capsule MDD 3 01/02/18 Rosuvastatin [Crestor -] 40 mg PO HS #30 tablet MDD 1 01/02/18 Polyethylene Glycol 3350 [Miralax 119 gm Btl -] 17 gm PO BID bottle 05/23/18 Aspirin [ASA -] 81 mg PO DAILY tab.chew 06/20/18 Docusate Sodium [Colace -] 300 mg PO HS #90 capsule 06/20/18 Metformin HCl [Glucophage] 1,000 mg PO BID #60 tablet 06/20/18 Sennosides [Senna -] 2 tab PO HS #60 tablet 06/20/18 Mirtazapine [Remeron -] 7.5 mg PO HS #30 tablet 07/12/18 Polyethylene Glycol 3350 [Miralax 119 gm Btl -] 17 gm PO BID #2 bottle 07/12/18 Sitagliptin Phosphate [Januvia] 100 mg PO DAILY #30 tablet 07/12/18 Insulin (Novolog) [Novolog -] 0 units SQ AC #1 ea 07/27/18 Insulin (Levemir) [Levemir Vial] 15 units SQ HS units 08/22/18 Insulin (Levemir) [Levemir Vial] 20 units SQ AM units 08/22/18 Gabapentin [Neurontin -] 400 mg PO TID capsule 09/08/18 Insulin (Levemir) [Levemir Vial] 15 units SQ AM units 09/08/18 Metoclopramide HCl [Reglan -] 10 mg PO TID PRN #90 tablet 09/08/18 Mirtazapine [Remeron -] 7.5 mg PO HS tablet 09/08/18 Rosuvastatin [Crestor -] 40 mg PO HS tablet 09/08/18 Sennosides [Senna -] 2 tab PO HS PRN tablet 09/08/18
[2018-09-09 14:39] VITALS: BP 131/73; PULSE 93; TEMP 97.3
== END 2018-09-09 16:54 | disposition home or self-care (01) | DRG 420 ==
LOC: SUPCPDRO 13:36 → JER 13:36 → JERBED 18:05 → JICU 23:27 → J7W 09-07 20:37
PROVIDERS: ADMIT Internal Medicine; ATTEND Family Medicine
DX: E11.10 Type 2 diabetes mellitus with ketoacidosis without coma (principal); N17.9 Acute kidney failure, unspecified; E11.21 Type 2 diabetes mellitus with diabetic nephropathy; E87.6 Hypokalemia; D64.9 Anemia, unspecified; E11.43 Type 2 diabetes mellitus with diabetic autonomic (poly)neuropathy; K31.84 Gastroparesis; Z79.4 Long term (current) use of insulin; I10 Essential (primary) hypertension; E78.5 Hyperlipidemia, unspecified; I25.10 Atherosclerotic heart disease of native coronary artery without angina pectoris; I12.9 Hypertensive chronic kidney disease with stage 1 through stage 4 chronic kidney disease, or unspecified chronic kidney disease; N18.9 Chronic kidney disease, unspecified; E86.0 Dehydration; E87.5 Hyperkalemia; E87.2 Acidosis; R07.9 Chest pain, unspecified; I69.354 Hemiplegia and hemiparesis following cerebral infarction affecting left non-dominant side; E87.0 Hyperosmolality and hypernatremia
CPT/HCPCS: 36415; 36600; 71045-TC-FY; 80048; 80053; 80061; 81003; 82009; 82375; 82550; 82803; 82962; 83036; 83050; 83721; 83735; 84100; 84484; 85025; 85027; 85610; 87086; 87804; 93005; 93010; 99285-25; J1644; J7030

== ENCOUNTER 2019-02-27 19:40 | Emergency (ER) | payer OTHER ==
--- NOTE | 2019-02-27 19:58 | PDOC ---
Rapid Medical Evaluation Time Seen by Provider: 02/27/19 19:58 Medical Evaluation: Allergies Allergy/AdvReac Type Severity Reaction Status Date / Time No Known Allergies Allergy Verified 09/06/18 13:54 02/27/19 19:58 I have performed a brief in-person evaluation of this patient. The patient presents with a chief complaint of: elevated sugar Pertinent physical exam findings:stable and in NAD, non-focal I have ordered the following:labs The patient will proceed to the ED for further evaluation.
[2019-02-27 20:02] VITALS: BMI 20.5
--- NOTE | 2019-02-27 22:29 | PDOC ---
Attending Attestation - Resident Resident Name: Dallas Devlin - ED Attending Attestation I have performed the following: I have examined & evaluated the patient, The case was reviewed & discussed with the resident, I agree w/resident's findings & plan - HPI HPI: 02/28/19 01:55 see resident hpi - Physicial Exam PE: 02/28/19 01:55 agree with resident exam - Medical Decision Making 02/28/19 01:55 63 yo female with elevated blood sugars plan for ivf, labs, EKG, chest x ray UA suggests UTI, previous cultures reviewed and were sensitive to Macrobid if BS improved plan for d/c
--- NOTE | 2019-02-27 23:21 | PDOC ---
History of Present Illness - General Chief Complaint: Blood Sugar Problem Stated Complaint: HYPERGLYCEMIA Time Seen by Provider: 02/27/19 19:58 - History of Present Illness Initial Comments: 02/27/19 23:19 Anastasia Patel is a 63F with PMH IDDM and was hospitalized earlier this year for DKA, presenting with hyperglycemia, polyuria, and weight loss. Patient reports that today her blood glucose was 300 and she had a headache, took some insulin and dropped to 150 and headache resolved on its own. Normally ~125, takes insulin daily and checks regularly. Says that for the last few weeks has been urinating a lot, says she got up 5 times last night to urinate last night. Denies hematuria, dysuria. Also reports about 40 pounds of weight loss over an unspecified amount of time, but says she is eating well and has not had any issues with what she is eating. Sees Dr. Morales, last saw him last , he did not address her weight loss. Patient denies abdominal pain, chest pain, SOB, dizziness, weakness, changes to vision. Says she has some RLE swelling at this time. Also complains of a painful lump in her right armpit that Dr. Morales gave her antibiotics for but has not resolved. Past History - Past Medical History Allergies/Adverse Reactions: Allergies Allergy/AdvReac Type Severity Reaction Status Date / Time No Known Allergies Allergy Verified 09/06/18 13:54 Home Medications: Ambulatory Orders Rosuvastatin [Crestor -] 40 mg PO HS #30 tablet MDD 1 01/02/18 Aspirin [ASA -] 81 mg PO DAILY tab.chew 06/20/18 Polyethylene Glycol 3350 [Miralax 119 gm Btl -] 17 gm PO BID #2 bottle 07/12/18 Insulin (Novolog) [Novolog -] 0 units SQ AC #1 ea 07/27/18 Insulin (Levemir) [Levemir Vial] 20 units SQ AM units 08/22/18 Insulin (Levemir) [Levemir Vial] 15 units SQ AM units 09/08/18 Metoclopramide HCl [Reglan -] 10 mg PO TID PRN #90 tablet 09/08/18 Calcium Carbonate [Calcium] 0 mg PO DAILY 02/28/19 Insulin Glargine,Hum.rec.anlog [Toujeo Solostar] 300 unit SQ DAILY 02/28/19 Insulin Lispro [Admelog Solostar] 100 unit SQ DAILY 02/28/19 Losartan/Hydrochlorothiazide [Losartan-Hctz 100-12.5 mg Tab] 1 each PO DAILY 11/11 Mirabegron [Myrbetriq] 25 mg PO DAILY 02/28/19 Multivitamin,Ther and Minerals [Vitamin and Minerals] 1 each PO DAILY 02/28/19 Nitrofurantoin Monohyd/M-Cryst [Macrobid -] 100 mg PO BID 5 Days #10 capsule 11/11 Anemia: No Asthma: No Cancer: No Cardiac Disorders: No CVA: Yes COPD: No CHF: No Dementia: No Diabetes: Yes (TYPE 2) GI Disorders: Yes (CONSTIPATION) Disorders: Yes (recurrent UTIs) HTN: Yes Hypercholesterolemia: Yes Liver Disease: No Psychiatric Problems: Yes (Depression) Seizures: No Thyroid Disease: No - Surgical History Abdominal Surgery: No Appendectomy: No Cardiac Surgery: No Cholecystectomy: No Gastric Stapling: No GI Surgery: No Lung Surgery: No Neurologic Surgery: No Orthopedic Surgery: No - Immunization History TDAP Vaccination: Yes Immunization Up to Date: No - Suicide/Smoking/Psychosocial Hx Smoking History: Never smoked Have you smoked in the past 12 months: No Hx Alcohol Use: No Drug/Substance Use Hx: No Substance Use Type: None Hx Substance Use Treatment: No Review of Systems - Review of Systems Able to Perform 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 No: Burning, Dysuria, Discharge, Flank Pain, Hematuria, Incontinence, Pain, Urgency Musculoskeletal: No: Symptoms Reported Integumentary: Yes: Lumps (R armpit, with pain) Neurological: Yes: Headache (self-resolved frmo earlier today). No: Numbness, Paresthesia Endocrine: Yes: Increased Urine, Unexplained Weight Loss Hematologic/Lymphatic: No: Symptoms Reported All Other Systems: Reviewed and Negative *Physical Exam - Vital Signs Last Vital Signs Temp Pulse Resp BP Pulse Ox 98.2 F 102 H 19 139/80 98 02/27/19 19:57 02/27/19 19:57 02/27/19 19:57 02/27/19 19:57 02/27/19 19:57 - Physical Exam General Appearance: Yes: Nourished, Appropriately Dressed, Thin. No: Apparent Distress HEENT: positive: EOMI, MANDI, Normal Voice, Symmetrical, Hearing Grossly Normal. negative: Pale Conjunctivae, Scleral Icterus (R), Scleral Icterus (L), Pharyngeal Erythema, Tonsillar Exudate, Tonsillar Erythema, Thrush Neck: positive: Trachea midline, Normal Thyroid, Supple. negative: Tender, Rigid, Lymphadenopathy (R), Lymphadenopathy (L) Respiratory/Chest: positive: Lungs Clear, Normal Breath Sounds. negative: Chest Tender, Respiratory Distress, Crackles, Rales, Rhonchi Cardiovascular: positive: Regular Rhythm, Regular Rate. negative: Murmur Gastrointestinal/Abdominal: positive: Normal Bowel Sounds, Flat, Soft. negative : Tender, Organomegaly, Guarding, Rebound, Hernia Musculoskeletal: positive: Normal Inspection. negative: CVA Tenderness Extremity: positive: Normal Capillary Refill, Normal Inspection, Normal Range of Motion. negative: Tender, Pedal Edema, Swelling, Calf Tenderness Integumentary: positive: Normal Color, Dry, Warm Neurologic: positive: Fully Oriented, Alert, Normal Mood/Affect, Normal Response ED Treatment Course - LABORATORY CBC & Chemistry Diagram: 02/27/19 23:46 02/27/19 23:46 Medical Decision Making - Medical Decision Making 02/27/19 23:47 Anastasia Patel is a 63F with PMH IDDM and was hospitalized earlier this year for DKA, presenting with hyperglycemia, polyuria, and weight loss. Presentation is most consistent with diabetes-related polyuria vs. UTI. Given history of DKA as well as concerning finding of 40lb weight loss if true, will evaluate via: CMP CBC troponin coags ECG CXR BC lactate UA/UC Patient is resting comfortably and eating a sandwich, is in no acute distress and has no other complaints other than polyuria and weight loss. Concern lower for DKA at this time. 02/28/19 01:47 Acetone negative. 02/28/19 02:32 Potassium 4.6. Gave 1g ceftriaxone for UTI, may be cause of the polyuria. Needs repeat fignerstick, BG 580s. Will bolus another 1L NS. No acute pathology notable on CXR. 02/28/19 04:55 Repeat BG 380s. Otherwise stable and in no distress. Good to be discharged home. Gave Macrobid 100mg bid for 5 days for UTI. *DC/Admit/Observation/Transfer Diagnosis at time of Disposition: Hyperglycemia UTI (urinary tract infection) Qualifiers: Urinary tract infection type: acute cystitis Hematuria presence: without hematuria Qualified Code(s): N30.00 - Acute cystitis without hematuria - Discharge Dispostion Disposition: HOME Condition at time of disposition: Stable Decision to Admit order: No - Prescriptions Prescriptions: Nitrofurantoin Monohyd/M-Cryst [Macrobid -] 100 mg PO BID 5 Days #10 capsule - Referrals Referrals: Darion Morales [Primary Care Provider] - - Patient Instructions Printed Discharge Instructions: DI for Hyperglycemia -- Adult Additional Instructions: Today you were evaluated for high blood sugar and weight loss. In terms of your blood sugar, it was indeed elevated today to 500. To treat this, we gave you some fluids and brought your sugar down. We do not see any abnormal numbers in your blood labs, but your urine shows that you have a urinary tract infection that could be the cause of your frequent urination. Please take the antibiotic we have prescribed for the next 5 days to clear the infection. Please take your insulin each day as prescribed by Dr. Morales. If your sugar gets elevated again , please try to use insulin to control it. However, if you feel nausea, vomiting , abdominal pain, headache, changes to your vision, begin feeling hot and sweating, or have any other new or concerning symptoms, please return to the closest emergency room. In terms of your weight loss, please follow-up with Dr. Morales and explain to him your concerns. We do not see any abnormalities in your labs that are concerning for this at this time. - Post Discharge Activity
[2019-02-27] MEDS ORDERED: SODIUM CHLORIDE 0.9% 500 ML INFUS.BAG IV ONE (23:53)
[2019-02-28 00:18] LABS: EOS % 1.4 % (0-4.5); HEMATOCRIT 34.6 % (32.4-45.2); HEMOGLOBIN 11.2 GM/dL (10.7-15.3); LYMPH % 24.3 % (8-40); MCH 28.8 pg (25.7-33.7); MCHC 32.4 g/dl (32.0-36.0); MEAN PLT VOLUME 10.2 fl (7.5-11.1); MONO % 7.6 % (3.8-10.2); NEUT % 65.7 % (42.8-82.8); PLATELET COUNT 222 K/MM3 (134-434); RBC 3.88 M/mm3 (3.60-5.2); RDW 17.2 % (11.6-15.6); WHITE BLOOD COUNT 5.9 K/mm3 (4.0-10.0)
[2019-02-28 00:47] LABS: INR 0.92 (0.83-1.09); PROTHROMBIN TIME (PATIENT) 10.9 SEC (9.7-13.0)
[2019-02-28 01:06] LABS: EPI CELLS 0.4 /HPF (0-5/HPF); HYALINE CASTS 0 /lpf (0-8); URINE APPEARANCE CLEAR; URINE BACTERIA 445.1 /hpf (NEGATIVE); URINE BILIRUBIN NEGATIVE (NEGATIVE); URINE COLOR YELLOW; URINE GLUCOSE (UA) 3+ (NEGATIVE); URINE KETONE NEGATIVE (NEGATIVE); URINE LEUK ESTERASE NEGATIVE (NEGATIVE); URINE NITRITE POSITIVE (NEGATIVE); URINE PROTEIN NEGATIVE (NEGATIVE); URINE RBC 0 /hpf (0-4); URINE UROBILINOGEN 0.2 mg/dL (0.2-1.0); URINE WBC 1 /hpf (0-5)
[2019-02-28] MEDS ORDERED: CEFTRIAXONE 1 GM in DEXTROSE 5%-WATER - 100 ML IVPB ONE (01:52)
[2019-02-28 01:53] LABS: VENOUS PC02 54.1 mmHg (38-52); VENOUS PH 7.37 (7.31-7.41)
[2019-02-28 01:55] LABS: ALBUMIN 3.4 g/dl (3.4-5.0); ALK PHOS 95 U/L (45-117); ANION GAP 10 MMOL/L (8-16); BILIRUBIN,TOTAL 0.4 mg/dL (0.2-1); BLOOD UREA NITROGEN 29.7 mg/dL (7-18); CHLORIDE 104 mmol/L (98-107); CO2 31 mmol/L (21-32); CREATININE 1.4 mg/dL (0.55-1.3); POTASSIUM 4.6 mmol/L (3.5-5.1); SGOT/AST 14 U/L (15-37); SGPT/ALT 19 U/L (13-61); SODIUM 145 mmol/L (136-145); TOT PROT 7.6 g/dl (6.4-8.2)
[2019-02-28 01:56] LABS: GLUCOSE,RANDOM 586 mg/dL (74-106)
[2019-02-28 01:57] LABS: ARTERIAL BLD GAS O2 SATURATION 96.2 % (95-98); ARTERIAL BLOOD GAS BASE EXCESS 2.4 meq/l (-2-2); ARTERIAL BLOOD GAS PCO2 45.1 mmHg (35-45); ARTERIAL BLOOD GAS PO2 85.4 mmHg (80-100); CARBOXYHEMOGLOBIN 1.1 % (0-2)
[2019-02-28] MEDS ORDERED: CEFTRIAXONE 1 GM/50 ML BAG ONE (01:59)
[2019-02-28 02:02] LABS: ALLENS TEST POSITIVE
[2019-02-28] MEDS ORDERED: SODIUM CHLORIDE 0.9% 500 ML INFUS.BAG IV ONE (02:30)
[2019-02-28 05:45] VITALS: BP 171/101; PULSE 85; TEMP 98.3
--- NOTE | 2019-02-28 12:25 | EKG ---
Test Reason : Blood Pressure : / mmHG Vent. Rate : 099 BPM Atrial Rate : 099 BPM P-R Int : 150 ms QRS Dur : 084 ms QT Int : 332 ms P-R-T Axes : 066 028 057 degrees QTc Int : 426 ms NORMAL SINUS RHYTHM POSSIBLE LEFT ATRIAL ENLARGEMENT BORDERLINE ECG WHEN COMPARED WITH ECG OF 06-SEP-2018 15:30, NO SIGNIFICANT CHANGE WAS FOUND Confirmed by PATRICIO CASTELLANOS MD ([id number]) on 02/28/2019 12:25:04 PM Referred By: Confirmed By:PATRICIO CASTELLANOS MD
--- NOTE | 2019-03-02 13:17 | PDOC ---
Patient Follow-up (Call Back) - Post ED Follow - Up Condition at time of discharge: Stable Disposition at time of original discharge: HOME - Disposition Additional Instructions/Notes: called back from lab regarding urine culture showing ESBL; cultures sensitive to macrobid On chart review, patient was already discharged on macrobid
== END 2019-02-28 06:05 | disposition home or self-care (01) ==
LOC: JER 19:40
DX: E11.65 Type 2 diabetes mellitus with hyperglycemia (principal); Z79.4 Long term (current) use of insulin; N30.00 Acute cystitis without hematuria; I10 Essential (primary) hypertension; E78.00 Pure hypercholesterolemia, unspecified; Z86.73 Personal history of transient ischemic attack (TIA), and cerebral infarction without residual deficits; Z87.440 Personal history of urinary (tract) infections; R63.4 Abnormal weight loss; Z68.20 Body mass index [BMI] 20.0-20.9, adult
CPT/HCPCS: 36415; 36600; 71045-TC-FY; 80053; 81003; 82009; 82375; 82803; 82962; 83050; 83605; 84484; 85025; 85610; 85730; 87040; 87086; 87186; 93005; 93010; 99284-25

== ENCOUNTER 2019-04-02 15:56 | Inpatient (IN) | payer MEDICARE, OTHER ==
--- NOTE | 2019-04-02 16:12 | PDOC ---
Rapid Medical Evaluation Time Seen by Provider: 04/02/19 16:08 Medical Evaluation: Allergies Allergy/AdvReac Type Severity Reaction Status Date / Time No Known Allergies Allergy Verified 09/06/18 13:54 04/02/19 16:08 63-year-old female with IDDM c/o weakness, dizziness, sugars in 300s today. Reports chills. No abd pain, no nausea/vomiting, no CP or SOB. Alert, oriented, no distress. RRR, S1/S2 Lungs CTAB No abd tenderness I have ordered the following: EKG CXR CBC, CMP, VBG, beta hydroxybutyrate, trop, UA Patient to proceed to main ED for further evaluation. Discharge Disposition - Discharge Dispostion Condition at time of disposition: Stable - Referrals - Patient Instructions - Post Discharge Activity
[2019-04-02 17:06] LABS: BASO % 1.2 % (0-2.0); EOS % 1.1 % (0-4.5); HEMATOCRIT 38.6 % (32.4-45.2); HEMOGLOBIN 12.7 GM/dL (10.7-15.3); LYMPH % 25.7 % (8-40); MCH 29.3 pg (25.7-33.7); MCHC 32.7 g/dl (32.0-36.0); MEAN CELL VOLUME 89.5 fl (80-96); MEAN PLT VOLUME 9.9 fl (7.5-11.1); MONO % 5.9 % (3.8-10.2); NEUT % 66.1 % (42.8-82.8); PLATELET COUNT 201 K/MM3 (134-434); RBC 4.31 M/mm3 (3.60-5.2); RDW 16.2 % (11.6-15.6); WHITE BLOOD COUNT 6.9 K/mm3 (4.0-10.0)
[2019-04-02 17:08] LABS: EPI CELLS 1.4 /HPF (0-5/HPF); HYALINE CASTS 0 /lpf (0-8); PH,URINE 5.5 (5.0-8.0); URINE APPEARANCE CLOUDY; URINE BACTERIA 7294.3 /hpf (NEGATIVE); URINE BILIRUBIN NEGATIVE (NEGATIVE); URINE COLOR YELLOW; URINE GLUCOSE (UA) 3+ (NEGATIVE); URINE KETONE NEGATIVE (NEGATIVE); URINE LEUK ESTERASE 2+ (NEGATIVE); URINE NITRITE POSITIVE (NEGATIVE); URINE PROTEIN NEGATIVE (NEGATIVE); URINE RBC 3 /hpf (0-4); URINE UROBILINOGEN 0.2 mg/dL (0.2-1.0); URINE WBC 199 /hpf (0-5)
[2019-04-02 17:12] LABS: VENOUS PO2 < 49 mmHg (28-48)
--- NOTE | 2019-04-02 17:14 | PDOC ---
History of Present Illness - General Chief Complaint: Blood Sugar Problem Stated Complaint: WEAKNESS Time Seen by Provider: 04/02/19 16:08 - History of Present Illness Initial Comments: 04/02/19 17:13 Ms. Patel is a 63 yo female w/ pmh of DMII, CKD, diabetic neuropathy, anemia, prior CVA w/ residual L sided weakness who presents for evaluation of 2-3 day history of generalized weakness. Patient reports this has coincided w/ her blood glucose readings reporting "High." Patient further reports she has had approximately 1 week of burning and frequent urination. She has had chills over this time period as well. The patient denies chest pain, shortness of breath, headache and dizziness. Denies fever, nausea, vomit, diarrhea and constipation. Past History - Past Medical History Allergies/Adverse Reactions: Allergies Allergy/AdvReac Type Severity Reaction Status Date / Time No Known Allergies Allergy Verified 09/06/18 13:54 Home Medications: Ambulatory Orders Rosuvastatin [Crestor -] 40 mg PO HS #30 tablet MDD 1 01/02/18 Aspirin [ASA -] 81 mg PO DAILY tab.chew 06/20/18 Polyethylene Glycol 3350 [Miralax 119 gm Btl -] 17 gm PO BID #2 bottle 07/12/18 Insulin (Novolog) [Novolog -] 0 units SQ AC #1 ea 07/27/18 Insulin (Levemir) [Levemir Vial] 20 units SQ AM units 08/22/18 Insulin (Levemir) [Levemir Vial] 15 units SQ AM units 09/08/18 Metoclopramide HCl [Reglan -] 10 mg PO TID PRN #90 tablet 09/08/18 Calcium Carbonate [Calcium] 0 mg PO DAILY 02/28/19 Insulin Glargine,Hum.rec.anlog [Toujeo Solostar] 300 unit SQ DAILY 02/28/19 Insulin Lispro [Admelog Solostar] 100 unit SQ DAILY 02/28/19 Losartan/Hydrochlorothiazide [Losartan-Hctz 100-12.5 mg Tab] 1 each PO DAILY 11/11 Mirabegron [Myrbetriq] 25 mg PO DAILY 02/28/19 Multivitamin,Ther and Minerals [Vitamin and Minerals] 1 each PO DAILY 02/28/19 Nitrofurantoin Monohyd/M-Cryst [Macrobid -] 100 mg PO BID 5 Days #10 capsule 11/11 Nitrofurantoin Monohyd/M-Cryst [Macrobid -] 100 mg PO BID #14 capsule 04/02/19 Anemia: No Asthma: No Cancer: No Cardiac Disorders: No CVA: Yes COPD: No CHF: No Dementia: No Diabetes: Yes (TYPE 2) GI Disorders: Yes (CONSTIPATION) Disorders: Yes (recurrent UTIs) HTN: Yes Hypercholesterolemia: Yes Liver Disease: No Psychiatric Problems: Yes (Depression) Seizures: No Thyroid Disease: No - Surgical History Abdominal Surgery: No Appendectomy: No Cardiac Surgery: No Cholecystectomy: No Gastric Stapling: No GI Surgery: No Lung Surgery: No Neurologic Surgery: No Orthopedic Surgery: No - Immunization History TDAP Vaccination: Yes Immunization Up to Date: No - Psycho Social/Smoking Cessation Hx Smoking History: Never smoked Have you smoked in the past 12 months: No Information on smoking cessation initiated: No Hx Alcohol Use: No Drug/Substance Use Hx: No Substance Use Type: None Hx Substance Use Treatment: No Review of Systems - Review of Systems Comments:: 04/02/19 17:13 GENERAL/CONSTITUTIONAL: +Generalized weakness with chills, no fevers. HEAD, EYES, EARS, NOSE AND THROAT: No change in vision. No ear pain or discharge. No sore throat. CARDIOVASCULAR: No chest pain or shortness of breath RESPIRATORY: No cough, wheezing, or hemoptysis. GASTROINTESTINAL: No nausea, vomiting, diarrhea or constipation. GENITOURINARY: +Urinary symptoms as described. MUSCULOSKELETAL: No joint or muscle swelling or pain. No neck or back pain. SKIN: No rash NEUROLOGIC: No headache, vertigo, loss of consciousness, or change in strength/ sensation. ENDOCRINE: No increased thirst. No abnormal weight change HEMATOLOGIC/LYMPHATIC: No anemia, easy bleeding, or history of blood clots. ALLERGIC/IMMUNOLOGIC: No hives or skin allergy. *Physical Exam - Vital Signs Last Vital Signs Temp Pulse Resp BP Pulse Ox 98.6 F 96 H 16 134/80 99 04/02/19 16:09 04/02/19 16:09 04/02/19 16:09 04/02/19 16:09 04/02/19 16:09 - Physical Exam Comments: 04/02/19 17:13 GENERAL: Awake, alert, and fully oriented, in no acute distress HEAD: No signs of trauma, normocephalic, atraumatic EYES: PERRLA, EOMI, sclera anicteric, conjunctiva clear ENT: Auricles normal inspection, hearing grossly normal, nares patent, oropharynx clear without exudates. Moist mucosa NECK: Normal ROM, supple, no lymphadenopathy, JVD, or masses LUNGS: No distress, speaks full sentences, clear to auscultation bilaterally HEART: Regular rate and rhythm, normal S1 and S2, no murmurs, rubs or gallops, peripheral pulses normal and equal bilaterally. ABDOMEN: Soft, nontender, normoactive bowel sounds. No guarding, no rebound. No masses EXTREMITIES: Normal inspection, Normal range of motion, no edema. No clubbing or cyanosis. NEUROLOGICAL: Cranial nerves II through XII grossly intact. Normal speech, normal gait, no focal sensorimotor deficits SKIN: Warm, Dry, normal turgor, no rashes or lesions noted. ED Treatment Course - LABORATORY CBC & Chemistry Diagram: 04/02/19 16:47 04/02/19 16:47 - ADDITIONAL ORDERS Additional order review: Laboratory Results 04/02/19 04/02/19 16:47 16:47 VBG pH 7.40 POC VBG pCO2 52.0 POC VBG pO2 < 49 H VBG HCO3 31.2 H VBG O2 Sat (Martha) 77.3 VBG Base Excess 5.6 H Urine Color Yellow Urine Appearance Cloudy Urine pH 5.5 D Ur Specific [place] 1.022 Urine Protein Negative Urine Glucose (UA) 3+ H Urine Ketones Negative Urine Blood Trace Urine Nitrite Positive H Urine Bilirubin Negative Urine Urobilinogen 0.2 Ur Leukocyte Esterase 2+ H Urine WBC (Auto) 199 Urine RBC (Auto) 3 Urine Casts (Auto) 0 U Epithel Cells (Auto) 1.4 Urine Bacteria (Auto) 7294.3 Medical Decision Making - Medical Decision Making 04/02/19 17:46 Ms. Patel is a 63 yo female w/ pmh as described who presents for evaluation of symptoms of weakness concerning for infection vs. dehydration vs. other acute process. Workup previously done via RME revealed UTI c/w history as below. Patient BGM noted to be within normal limits and unconcerning. Patient given hydration and IV ABX per previous sensitivities. Patient will be discharged with outpatient oral ABX for further workup. 04/02/19 18:55 Patient currently pending hydration and walk test prior to discharge to home. Patient signed out to Dr. Plumemr for further evaluation Discharge - Discharge Information Problems reviewed: Yes Clinical Impression/Diagnosis: UTI (urinary tract infection) Qualifiers: Urinary tract infection type: site unspecified Hematuria presence: without hematuria Qualified Code(s): N39.0 - Urinary tract infection, site not specified Condition: Stable - Additional Discharge Information Prescriptions: Nitrofurantoin Monohyd/M-Cryst [Macrobid -] 100 mg PO BID #14 capsule - Follow up/Referral Referrals: Ivan Hatch MD [Primary Care Provider] - - Patient Discharge Instructions Patient Printed Discharge Instructions: DI for Urinary Tract Infection (UTI) Additional Instructions: You were evaluated today in the ER and found to have a urinary tract infection. We gave you IV antibiotics in the ER and sent a prescription to your pharmacy for further treatment. Please start antibiotics tomorrow. Take all medications as proscribed. Follow-up with primary care provider next week for further evaluation. Return to ER if any fever, chills, altered mental status, or other concerning symptoms. - Post Discharge Activity
[2019-04-02] MEDS ORDERED: SODIUM CHLORIDE 1,000 ML IV STA (17:23)
--- NOTE | 2019-04-02 17:23 | PDOC ---
Attending Attestation - Resident Resident Name: Taz Howell - ED Attending Attestation I have performed the following: I have examined & evaluated the patient, The case was reviewed & discussed with the resident, I agree w/resident's findings & plan, Exceptions are as noted - HPI HPI: 04/02/19 17:21 63 F with h/o DM II, Diabetic Neuropathy, HTN, CVA, presenting to ED with elevated sugars x 2 days as well as burning with urination. Pt states that her sugars are normally around 100 but have been elevated to 200-300 over the past 48 hours. Pt also complains of frequent urination and burning with urination. Denies F/C. Denies abdominal or flank pain. Denies N/V/D. Pt states that she has had UTIs in the past. - Physicial Exam PE: 04/02/19 17:22 "GENERAL: Awake, alert, and fully oriented, in no acute distress. HEAD: No signs of trauma EYES: PERRLA, EOMI, sclera anicteric, conjunctiva clear ENT: Auricles normal inspection, hearing grossly normal, nares patent, oropharynx clear without exudates. Moist mucosa NECK: Nontender, no stepoffs, Normal ROM, supple, no lymphadenopathy, JVD, or masses LUNGS: Breath sounds equal, clear to auscultation bilaterally. No wheezes, and no crackles HEART: Regular rate and rhythm, normal S1 and S2, no murmurs, rubs or gallops ABDOMEN: Soft, nontender, normoactive bowel sounds. No guarding, no rebound. No masses EXTREMITIES: Normal range of motion, no edema. No clubbing or cyanosis. No cords, erythema, or tenderness NEUROLOGICAL: Cranial nerves II through XII intact. 5/5 strength and sensation in all extremities, Normal speech, normal gait, normal cerebellar function SKIN: Warm, Dry, normal turgor, no rashes or lesions noted. - Medical Decision Making 04/02/19 17:22 63 F with elevated sugar and dysuria. Likely UTI. - Labs, UA, UCx - IVF 04/02/19 17:55 Labs notable for UTI, otherwise unremarkable Glucose wnl
[2019-04-02 17:33] LABS: ALBUMIN 3.4 g/dl (3.4-5.0); ALK PHOS 88 U/L (45-117); ANION GAP 6 MMOL/L (8-16); BILIRUBIN,TOTAL 0.2 mg/dL (0.2-1); BLOOD UREA NITROGEN 24.7 mg/dL (7-18); CALCIUM 10.1 mg/dL (8.5-10.1); CHLORIDE 106 mmol/L (98-107); CO2 32 mmol/L (21-32); CREATININE 1.3 mg/dL (0.55-1.3); GLUCOSE,RANDOM 156 mg/dL (74-106); POTASSIUM 4.3 mmol/L (3.5-5.1); SGOT/AST 13 U/L (15-37); SGPT/ALT 19 U/L (13-61); SODIUM 144 mmol/L (136-145)
[2019-04-02] MEDS ORDERED: CEFTRIAXONE 1 GM in DEXTROSE 5%-WATER - 100 ML IVPB ONE (17:38)
[2019-04-02] MEDS ORDERED: CEFTRIAXONE 1 GM/50 ML BAG ONE (17:55)
[2019-04-02] MEDS ORDERED: MEROPENEM 1 GM in DEXTROSE 5%-WATER 100 ML IVPB ONE (19:26)
--- NOTE | 2019-04-02 19:27 | PDOC ---
*Physical Exam - Vital Signs Last Vital Signs Temp Pulse Resp BP Pulse Ox 98.8 F 91 H 16 163/97 98 04/02/19 19:07 04/02/19 19:07 04/02/19 16:09 04/02/19 19:07 04/02/19 19:07 ED Treatment Course - LABORATORY CBC & Chemistry Diagram: 04/02/19 16:47 04/02/19 16:47 - ADDITIONAL ORDERS Additional order review: Laboratory Results 04/02/19 04/02/19 04/02/19 17:15 16:47 16:47 VBG pH 7.40 POC VBG pCO2 52.0 POC VBG pO2 < 49 H VBG HCO3 31.2 H VBG O2 Sat (Martha) 77.3 VBG Base Excess 5.6 H Sodium Potassium Chloride Carbon Dioxide Anion Gap BUN Creatinine Est GFR (CKD-EPI)AfAm Est GFR (CKD-EPI)NonAf POC Glucometer 97 Random Glucose Calcium Total Bilirubin AST ALT Alkaline Phosphatase Total Protein Albumin Beta-Hydroxybutyrate Urine Color Yellow Urine Appearance Cloudy Urine pH 5.5 D Ur Specific [place] 1.022 Urine Protein Negative Urine Glucose (UA) 3+ H Urine Ketones Negative Urine Blood Trace Urine Nitrite Positive H Urine Bilirubin Negative Urine Urobilinogen 0.2 Ur Leukocyte Esterase 2+ H Urine WBC (Auto) 199 Urine RBC (Auto) 3 Urine Casts (Auto) 0 U Epithel Cells (Auto) 1.4 Urine Bacteria (Auto) 7294.3 04/02/19 16:47 VBG pH POC VBG pCO2 POC VBG pO2 VBG HCO3 VBG O2 Sat (Martha) VBG Base Excess Sodium 144 Potassium 4.3 Chloride 106 Carbon Dioxide 32 Anion Gap 6 L BUN 24.7 H Creatinine 1.3 Est GFR (CKD-EPI)AfAm 49.86 Est GFR (CKD-EPI)NonAf 43.02 POC Glucometer Random Glucose 156 H Calcium 10.1 Total Bilirubin 0.2 AST 13 L ALT 19 Alkaline Phosphatase 88 Total Protein 8.0 Albumin 3.4 Beta-Hydroxybutyrate 1.4 Urine Color Urine Appearance Urine pH Ur Specific [place] Urine Protein Urine Glucose (UA) Urine Ketones Urine Blood Urine Nitrite Urine Bilirubin Urine Urobilinogen Ur Leukocyte Esterase Urine WBC (Auto) Urine RBC (Auto) Urine Casts (Auto) U Epithel Cells (Auto) Urine Bacteria (Auto) 04/02/19 04/02/19 17:15 16:47 RBC 4.31 MCV 89.5 MCHC 32.7 RDW 16.2 H MPV 9.9 Neutrophils % 66.1 Lymphocytes % 25.7 Monocytes % 5.9 Eosinophils % 1.1 Basophils % 1.2 POC Glucometer 97 - Medications Given in the ED: ED Medications Discontinued Medications Generic Name Dose Route Start Last Admin Trade Name Jessy PRN Reason Stop Dose Admin Sodium Chloride 1,000 mls @ 1,000 mls/hr 04/02/19 17:23 04/02/19 17:36 Normal Saline - IV 04/02/19 18:22 1,000 mls/hr ASDIR STA Administration Ceftriaxone Sodium 1 gm/ 100 mls @ 200 mls/hr 04/02/19 17:38 04/02/19 18:01 Dextrose IVPB 04/02/19 18:07 200 mls/hr ONCE ONE Administration Medical Decision Making - Medical Decision Making 04/02/19 19:[address] Howell. Patient is 63F with history of DMII, CKD, diabetic neuropathy, anemia, prior CVA w/ residual L sided weakness here today complaining of weakness, dysuria and urinary frequency. Patient was found to have UTI. Has history of ESBL. Attempted to walk patient, but felt weak and dizzy even after hydration. Patient requires IV ABx given ESBL history and is not safe to discharge. Will admit. Discharge - Discharge Information Problems reviewed: Yes Clinical Impression/Diagnosis: UTI (urinary tract infection) Qualifiers: Urinary tract infection type: site unspecified Hematuria presence: without hematuria Qualified Code(s): N39.0 - Urinary tract infection, site not specified Condition: Stable - Admission Yes - Additional Discharge Information Prescriptions: Nitrofurantoin Monohyd/M-Cryst [Macrobid -] 100 mg PO BID #14 capsule - Follow up/Referral - Patient Discharge Instructions Patient Printed Discharge Instructions: DI for Urinary Tract Infection (UTI) Additional Instructions: You were evaluated today in the ER and found to have a urinary tract infection. We gave you IV antibiotics in the ER and sent a prescription to your pharmacy for further treatment. Please start antibiotics tomorrow. Take all medications as proscribed. Follow-up with primary care provider next week for further evaluation. Return to ER if any fever, chills, altered mental status, or other concerning symptoms. - Post Discharge Activity
--- NOTE | 2019-04-02 20:26 | HP ---
Admitting History and Physical - Primary Care Physician PCP: Dr. Limon - Admission Chief Complaint: weakness, frequency, burning when urinating History of Present Illness: 63 year old female with PMH of DMII, CKD, diabetic neuropathy, anemia, prior CVA w/ residual L sided weakness arrived to ED due to increase weakness, and urinary symptoms " I have increase weakness, urinating alot, with burning, I am loosing all of my vitamins and weight". As per patient symptoms have been there for over a month and getting worse. Last visit to [facility] was 02/27 UA suggests UTI, cultures showed E-coli, ESBL (Macrobid was given), however outpatient treatment failed and patient arrived to ED for further evaluation. Patient denies sob/cp, headache, dizziness, N/V, diarrhea, constipation. 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) Endocrine: Yes: Diabetes Mellitus - Past Surgical History Past Surgical History: Yes: , Hysterectomy, Tubal Ligation - Smoking History Smoking history: Never smoked Have you smoked in the past 12 months: No - Alcohol/Substance Use Hx Alcohol Use: No History of Substance Use: reports: None - Social History ADL: Family Assistance Occupation: retired History of Recent Travel: No Home Medications - Allergies Allergies/Adverse Reactions: Allergies Allergy/AdvReac Type Severity Reaction Status Date / Time No Known Allergies Allergy Verified 09/06/18 13:54 - Home Medications Home Medications: Ambulatory Orders Rosuvastatin [Crestor -] 40 mg PO HS #30 tablet MDD 1 01/02/18 Aspirin [ASA -] 81 mg PO DAILY tab.chew 06/20/18 Polyethylene Glycol 3350 [Miralax 119 gm Btl -] 17 gm PO BID #2 bottle 07/12/18 Insulin (Novolog) [Novolog -] 0 units SQ AC #1 ea 07/27/18 Insulin (Levemir) [Levemir Vial] 20 units SQ AM units 08/22/18 Insulin (Levemir) [Levemir Vial] 15 units SQ AM units 09/08/18 Metoclopramide HCl [Reglan -] 10 mg PO TID PRN #90 tablet 09/08/18 Calcium Carbonate [Calcium] 0 mg PO DAILY 02/28/19 Insulin Glargine,Hum.rec.anlog [Toujeo Solostar] 300 unit SQ DAILY 02/28/19 Insulin Lispro [Admelog Solostar] 100 unit SQ DAILY 02/28/19 Losartan/Hydrochlorothiazide [Losartan-Hctz 100-12.5 mg Tab] 1 each PO DAILY 11/11 Mirabegron [Myrbetriq] 25 mg PO DAILY 02/28/19 Multivitamin,Ther and Minerals [Vitamin and Minerals] 1 each PO DAILY 02/28/19 Nitrofurantoin Monohyd/M-Cryst [Macrobid -] 100 mg PO BID 5 Days #10 capsule 11/11 Nitrofurantoin Monohyd/M-Cryst [Macrobid -] 100 mg PO BID #14 capsule 04/02/19 Family Medical History Family History: Denies Review of Systems - Review of Systems Constitutional: reports: Weakness Eyes: reports: No Symptoms HENT: reports: No Symptoms Neck: reports: No Symptoms Respiratory: reports: No Symptoms Gastrointestinal: reports: No Symptoms Genitourinary: reports: Burning, Frequency, Urgency Musculoskeletal: reports: No Symptoms Integumentary: reports: No Symptoms Neurological: reports: No Symptoms Endocrine: reports: No Symptoms Hematology/Lymphatic: reports: No Symptoms Psychiatric: reports: No Symptoms Physical Examination Vital Signs: Vital Signs Temperature 98.8 F 04/02/19 19:07 Pulse Rate 91 H 04/02/19 19:07 Respiratory Rate 16 04/02/19 16:09 Blood Pressure 163/97 04/02/19 19:07 O2 Sat by Pulse Oximetry (%) 98 04/02/19 19:07 Constitutional: Yes: Calm, Mild Distress Eyes: Yes: Conjunctiva Clear, EOM Intact HENT: Yes: Atraumatic, Normocephalic Neck: Yes: Supple, Trachea Midline Cardiovascular: Yes: Regular Rate and Rhythm Respiratory: Yes: Regular, CTA Bilaterally Gastrointestinal: Yes: Normal Bowel Sounds, Soft Renal/: Yes: CVA Tenderness - Left, CVA Tenderness - Right, Polyuria Musculoskeletal: Yes: WNL Edema: No Peripheral Pulses WNL: Yes Neurological: Yes: Alert, Oriented Labs: CBC, BMP 04/02/19 16:47 04/02/19 16:47 Imaging - Results Other: Report Reviewed (bun/cr: 24.7/1.3 UA: +2 leukocyte , + Nitrate) Problem List - Problems (1) Complicated UTI (urinary tract infection) Code(s): N39.0 - URINARY TRACT INFECTION, SITE NOT SPECIFIED (2) ALEX (acute kidney injury) Code(s): N17.9 - ACUTE KIDNEY FAILURE, UNSPECIFIED (3) Constipation Code(s): K59.00 - CONSTIPATION, UNSPECIFIED (4) Diabetes mellitus Code(s): E11.9 - TYPE 2 DIABETES MELLITUS WITHOUT COMPLICATIONS (5) Diabetic neuropathy Code(s): E11.40 - TYPE 2 DIABETES MELLITUS WITH DIABETIC NEUROPATHY, UNSP (6) HTN (hypertension) Code(s): I10 - ESSENTIAL (PRIMARY) HYPERTENSION (7) History of CVA (cerebrovascular accident) Code(s): Z86.73 - PRSNL HX OF TIA (TIA), AND CEREB INFRC W/O RESID DEFICITS Assessment/Plan 63 year old female with PMH of DMII, CKD, diabetic neuropathy, anemia, prior CVA w/ residual L sided weakness arrived to ED due to increase weakness, and urinary symptoms, last month failed outpatient abx therapy with po Macrobid ( ucx: ESBL, E-coli). # Complicated UTI # ALEX - UA positive - in ED given ceftriaxone, then meropenem 1g - Bun: 24.7 - 1 L NS IVF given - follow up UCX - continue with IV fluids - continue with meropenem 1 g q 8 hours - follow up ID - Tylenol q 4 hours prn - follow up bmp, cbc in AM # DM -monitor FBSS TID AC -coverage with novolog sliding scale - Levemir 15 units SQ PM #HLD/HTN -Rosuvastatin 40 mg PO HS -Losartan-Hctz 100-12.5 mg Tab 1 each PO DAILY #Constipation - Polyethylene Glycol 3350 17 gm PO daily Visit type - Emergency Visit Emergency Visit: Yes ED Registration Date: 04/02/19 Care time: The patient presented to the Emergency Department on the above date and was hospitalized for further evaluation of their emergent condition. - New Patient This patient is new to me today: Yes Date on this admission: 04/02/19 - Critical Care Critical Care patient: No
[2019-04-02] MEDS ORDERED: ACETAMINOPHEN 325 MG TABLET (FP) PO PRN (21:00)
[2019-04-02] MEDS: SODIUM CHLORIDE 1,000 ML IV SCH (22:00)
[2019-04-02] MEDS: ROSUVASTATIN CA 40 MG TABLET PO SCH (22:33)
[2019-04-02] MEDS: INSULIN (LEVEMIR) 100 UNITS/ML UNITS SQ SCH (22:33)
[2019-04-02] MEDS: HEPARIN NA (PORCINE) 5,000 UNITS/ML 1ML VIAL SQ SCH (22:33)
[2019-04-03] MEDS ORDERED: MEROPENEM 1 GM VIAL (RESTRICTED TO ID) IVPB ONE (02:13)
[2019-04-03] MEDS: MEROPENEM 1 GM in DEXTROSE 5%-WATER 100 ML IVPB SCH ×2 (02:26→10:00)
[2019-04-03] MEDS: INSULIN SLIDING SCALE (NOVOLOG) 1 VIAL SQ SCH ×3 (06:49→16:57)
[2019-04-03] MEDS ORDERED: INSULIN (NOVOLOG) ASPART 100 UNITS/ML 10ML VIAL SQ SCH (07:00)
[2019-04-03 07:44] LABS: HEMATOCRIT 35.2 % (32.4-45.2); HEMOGLOBIN 11.5 GM/dL (10.7-15.3); MCH 29.6 pg (25.7-33.7); MCHC 32.8 g/dl (32.0-36.0); MEAN CELL VOLUME 90.4 fl (80-96); MEAN PLT VOLUME 10.1 fl (7.5-11.1); PLATELET COUNT 170 K/MM3 (134-434); RBC 3.89 M/mm3 (3.60-5.2); RDW 16.1 % (11.6-15.6); WHITE BLOOD COUNT 5.3 K/mm3 (4.0-10.0)
[2019-04-03 08:01] LABS: BLOOD UREA NITROGEN 23.6 mg/dL (7-18)
[2019-04-03] MEDS: HYDROCHLOROTHIAZIDE 12.5 MG CAPSULE (FP) PO SCH (10:00)
[2019-04-03] MEDS ORDERED: PATIENT'S OWN MEDICATION (NON-FORMULARY) (Losartan/Hydrochlorothiazide [Losartan-Hctz 100- PO SCH (10:00)
[2019-04-03] MEDS: LOSARTAN POTASSIUM 50 MG TABLET (FP) PO SCH (10:00)
[2019-04-03] MEDS: HEPARIN NA (PORCINE) 5,000 UNITS/ML 1ML VIAL SQ SCH ×2 (10:00→22:15)
[2019-04-03] MEDS: POLYETHYLENE GLYCOL 3350 119 GM BTL PO SCH (10:00)
--- NOTE | 2019-04-03 12:55 | EKG ---
Test Reason : Blood Pressure : / mmHG Vent. Rate : 094 BPM Atrial Rate : 094 BPM P-R Int : 148 ms QRS Dur : 080 ms QT Int : 352 ms P-R-T Axes : 065 025 060 degrees QTc Int : 440 ms NORMAL SINUS RHYTHM POSSIBLE LEFT ATRIAL ENLARGEMENT BORDERLINE ECG WHEN COMPARED WITH ECG OF 27-FEB-2019 20:44, NO SIGNIFICANT CHANGE WAS FOUND Confirmed by KRISTIN PIERSON, MITCHELL ([id number]) on 04/03/2019 12:54:41 PM Referred By: Confirmed By:MITCHELL FOSTER MD
--- NOTE | 2019-04-03 13:14 | PN ---
Progress Note, Physician Chief Complaint: UTI ALEX History of Present Illness: Previous notes and events reviewed awake and alert NAD complain of dysuria, denies hematuria complain lower abdominal pain - Current Medication List Current Medications: Active Medications Acetaminophen (Tylenol -) 650 mg PO Q4H PRN PRN Reason: PAIN OR FEVER Heparin Sodium (Porcine) (Heparin -) 5,000 unit SQ BID [facility] Last Admin: 04/03/19 10:00 Dose: 5,000 unit Hydrochlorothiazide (Hctz -) 12.5 mg PO DAILY [facility] Last Admin: 04/03/19 10:00 Dose: 12.5 mg Sodium Chloride (Normal Saline -) 1,000 mls @ 50 mls/hr IV ASDIR [facility] Stop: 04/03/19 21:01 Last Admin: 04/02/19 22:00 Dose: 50 mls/hr Meropenem 1 gm/ Dextrose 100 mls @ 200 mls/hr IVPB Q8H-IV JULIANA Meropenem 1 gm/ Dextrose 100 mls @ 200 mls/hr IVPB Q8H-IV [facility] Stop: 04/03/19 18:29 Last Admin: 04/03/19 10:00 Dose: 200 mls/hr Insulin Aspart (Novolog Vial Sliding Scale -) 1 vial SQ TIDAC [facility]; Protocol Last Admin: 04/03/19 11:30 Dose: 2 units Insulin Detemir (Levemir Vial) 15 units SQ HS [facility] Stop: 04/08/19 23:59 Last Admin: 04/02/19 22:33 Dose: 15 units Losartan Potassium (Cozaar -) 100 mg PO DAILY [facility] Last Admin: 04/03/19 10:00 Dose: 100 mg Polyethylene Glycol (Miralax (For Daily Use) -) 17 gm PO DAILY [facility] Last Admin: 04/03/19 10:00 Dose: 17 gm Rosuvastatin Calcium (Crestor -) 40 mg PO HS [facility] Last Admin: 04/02/19 22:33 Dose: 40 mg - Objective Vital Signs: Vital Signs Temperature 98.3 F 04/03/19 10:39 Pulse Rate 83 04/03/19 10:39 Respiratory Rate 17 04/03/19 05:28 Blood Pressure 155/93 04/03/19 10:39 O2 Sat by Pulse Oximetry (%) 96 04/03/19 10:39 Constitutional: Yes: No Distress, Calm Eyes: Yes: Conjunctiva Clear HENT: Yes: Atraumatic Cardiovascular: Yes: Regular Rate and Rhythm Respiratory: Yes: Regular, CTA Bilaterally Gastrointestinal: Yes: Normal Bowel Sounds, Soft, Tenderness (suprapubic) Musculoskeletal: Yes: Muscle Weakness Extremities: Yes: WNL Edema: No Neurological: Yes: Alert, Oriented Psychiatric: Yes: Alert, Oriented Labs: CBC, BMP 04/03/19 06:00 04/03/19 06:00 Problem List - Problems (1) Complicated UTI (urinary tract infection) Assessment/Plan: -ID on board -no leukocytosis -afebrile -UA 2+ leuks, positive nitrite -UC pending -Meropenem Code(s): N39.0 - URINARY TRACT INFECTION, SITE NOT SPECIFIED (2) ALEX (acute kidney injury) Assessment/Plan: -BUN/Cr 23.6/1.0 -monitor renal function Code(s): N17.9 - ACUTE KIDNEY FAILURE, UNSPECIFIED (3) Diabetes mellitus Assessment/Plan: -BG ACHS -ISS -Endocrinology consult -Dietary consult -Levemir -patient is noncompliant with med regimen and diet Code(s): E11.9 - TYPE 2 DIABETES MELLITUS WITHOUT COMPLICATIONS (4) HTN (hypertension) Assessment/Plan: -HCTZ, Losartan -low Na diet Code(s): I10 - ESSENTIAL (PRIMARY) HYPERTENSION (5) Hyperlipidemia Assessment/Plan: -Rosuvastatin Code(s): E78.5 - HYPERLIPIDEMIA, UNSPECIFIED
--- NOTE | 2019-04-03 15:45 | CONSULT ---
Consult Consult Specialty:: Infectious disease Referred by:: Holden Reason for Consultation:: UTI, hx of ESBL - History of Present Illness Chief Complaint: Generalized weakness, burning on micturition x 5 days History of Present Illness: Pt is a 63 yo F with DM (on insulin), CKD, DM neuropathy, GERD, constipation, anemia, prior CVA, presenting from home for generalized weakness and burning with urination for 5 days. Pt reports lower abdominal pain nausea, no vomiting, and dysuria. Recent ESBL UTI (02/28/19), patient said to have recovered after that treatment with macrobid. No hematuria, no passage of stones, no fever. No recent travels, no sick contacts. 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) Endocrine: Yes: Diabetes Mellitus - Past Surgical History Past Surgical History: Yes: , Hysterectomy, Tubal Ligation - Alcohol/Substance Use Hx Alcohol Use: No History of Substance Use: reports: None - Smoking History Smoking history: Never smoked Have you smoked in the past 12 months: No - Social History Usual Living Arrangement: With Child ADL: Family Assistance Occupation: retired History of Recent Travel: No Home Medications - Allergies Allergies/Adverse Reactions: Allergies Allergy/AdvReac Type Severity Reaction Status Date / Time No Known Allergies Allergy Verified 09/06/18 13:54 - Home Medications Home Medications: Ambulatory Orders Rosuvastatin [Crestor -] 40 mg PO HS #30 tablet MDD 1 01/02/18 Aspirin [ASA -] 81 mg PO DAILY tab.chew 06/20/18 Polyethylene Glycol 3350 [Miralax 119 gm Btl -] 17 gm PO BID #2 bottle 07/12/18 Insulin (Novolog) [Novolog -] 0 units SQ AC #1 ea 07/27/18 Insulin (Levemir) [Levemir Vial] 20 units SQ AM units 08/22/18 Insulin (Levemir) [Levemir Vial] 15 units SQ AM units 09/08/18 Metoclopramide HCl [Reglan -] 10 mg PO TID PRN #90 tablet 09/08/18 Calcium Carbonate [Calcium] 0 mg PO DAILY 02/28/19 Insulin Glargine,Hum.rec.anlog [Toujeo Solostar] 300 unit SQ DAILY 02/28/19 Insulin Lispro [Admelog Solostar] 100 unit SQ DAILY 02/28/19 Losartan/Hydrochlorothiazide [Losartan-Hctz 100-12.5 mg Tab] 1 each PO DAILY 11/11 Mirabegron [Myrbetriq] 25 mg PO DAILY 02/28/19 Multivitamin,Ther and Minerals [Vitamin and Minerals] 1 each PO DAILY 02/28/19 Nitrofurantoin Monohyd/M-Cryst [Macrobid -] 100 mg PO BID 5 Days #10 capsule 11/11 Nitrofurantoin Monohyd/M-Cryst [Macrobid -] 100 mg PO BID #14 capsule 04/02/19 Review of Systems - Review of Systems Constitutional: reports: Weakness. denies: Chills, Fever HENT: denies: Difficult Swallowing Neck: denies: Stiffness Cardiovascular: denies: Chest Pain Respiratory: denies: Cough, SOB, SOB on Exertion, Wheezing Gastrointestinal: reports: Constipation Genitourinary: reports: Burning, Dysuria. denies: Flank Pain Neurological: denies: Change in LOC, Change in Speech, Confusion Physical Exam Vital Signs: Vital Signs Temperature 98.3 F 04/03/19 10:39 Pulse Rate 83 04/03/19 10:39 Respiratory Rate 17 04/03/19 05:28 Blood Pressure 155/93 04/03/19 10:39 O2 Sat by Pulse Oximetry (%) 96 04/03/19 10:39 Constitutional: Yes: No Distress, Calm Eyes: Yes: Conjunctiva Clear, PERRL Neck: Yes: Supple Cardiovascular: Yes: S1, S2 Gastrointestinal: Yes: Normal Bowel Sounds, Tenderness (suprapubic area) Renal/: No: CVA Tenderness - Left, CVA Tenderness - Right Edema: LLE: 1+, RLE: 1+ Neurological: Yes: Alert, Oriented Labs: CBC, BMP 04/03/19 06:00 04/03/19 06:00 Assessment/Plan Ambulatory Orders Rosuvastatin [Crestor -] 40 mg PO HS #30 tablet MDD 1 01/02/18 Aspirin [ASA -] 81 mg PO DAILY tab.chew 06/20/18 Polyethylene Glycol 3350 [Miralax 119 gm Btl -] 17 gm PO BID #2 bottle 07/12/18 Insulin (Novolog) [Novolog -] 0 units SQ AC #1 ea 07/27/18 Insulin (Levemir) [Levemir Vial] 20 units SQ AM units 08/22/18 Insulin (Levemir) [Levemir Vial] 15 units SQ AM units 09/08/18 Metoclopramide HCl [Reglan -] 10 mg PO TID PRN #90 tablet 09/08/18 Calcium Carbonate [Calcium] 0 mg PO DAILY 02/28/19 Insulin Glargine,Hum.rec.anlog [Toujeo Solostar] 300 unit SQ DAILY 02/28/19 Insulin Lispro [Admelog Solostar] 100 unit SQ DAILY 02/28/19 Losartan/Hydrochlorothiazide [Losartan-Hctz 100-12.5 mg Tab] 1 each PO DAILY 11/11 Mirabegron [Myrbetriq] 25 mg PO DAILY 02/28/19 Multivitamin,Ther and Minerals [Vitamin and Minerals] 1 each PO DAILY 02/28/19 Nitrofurantoin Monohyd/M-Cryst [Macrobid -] 100 mg PO BID 5 Days #10 capsule 11/11 Nitrofurantoin Monohyd/M-Cryst [Macrobid -] 100 mg PO BID #14 capsule 04/02/19 Current Medications Acetaminophen (Tylenol -) 650 mg PO Q4H PRN PRN Reason: PAIN OR FEVER Heparin Sodium (Porcine) (Heparin -) 5,000 unit SQ BID [facility] Last Admin: 04/03/19 10:00 Dose: 5,000 unit Hydrochlorothiazide (Hctz -) 12.5 mg PO DAILY [facility] Last Admin: 04/03/19 10:00 Dose: 12.5 mg Sodium Chloride (Normal Saline -) 1,000 mls @ 50 mls/hr IV ASDIR [facility] Stop: 04/03/19 21:01 Last Admin: 04/02/19 22:00 Dose: 50 mls/hr Ertapenem 1 gm/ Sodium (Chloride) 50 mls @ 100 mls/hr IVPB DAILY [facility] Insulin Aspart (Novolog Vial Sliding Scale -) 1 vial SQ TIDAC [facility]; Protocol Last Admin: 04/03/19 11:30 Dose: 2 units Insulin Detemir (Levemir Vial) 15 units SQ [facility] Stop: 04/08/19 23:59 Last Admin: 04/02/19 22:33 Dose: 15 units Losartan Potassium (Cozaar -) 100 mg PO DAILY [facility] Last Admin: 04/03/19 10:00 Dose: 100 mg Polyethylene Glycol (Miralax (For Daily Use) -) 17 gm PO DAILY [facility] Last Admin: 04/03/19 10:00 Dose: 17 gm Rosuvastatin Calcium (Crestor -) 40 mg PO HS [facility] Last Admin: 04/02/19 22:33 Dose: 40 mg Assessment/Plan: Pt is a 63 yo F with DM (on insulin), CKD, DM neuropathy, GERD, constipation, anemia, prior CVA, presenting from home for generalized weakness and burning with urination for 5 days. Complicated UTI with prior ESBL, positive nitrites and LE, symptomatic Considering recurrent UTI will do renal/bladder US Received ceftriaxone, meropenem Will dc meropenem Start ertapenem Pending Ucx D/W Dr Nico Brock [facility] PGY 3 Infectious disease rotation Visit type - Emergency Visit Emergency Visit: Yes ED Registration Date: 04/02/19 Care time: The patient presented to the Emergency Department on the above date and was hospitalized for further evaluation of their emergent condition. - New Patient This patient is new to me today: Yes Date on this admission: 04/03/19 - Critical Care Critical Care patient: No ATTENDING PHYSICIAN STATEMENT I saw and evaluated the patient. I reviewed the resident's note and discussed the case with the resident. I agree with the resident's findings and plan as documented. SUBJECTIVE: OBJECTIVE: ASSESSMENT AND PLAN:
--- NOTE | 2019-04-03 17:35 | PN ---
Progress Note (short form) - Note Progress Note: ID consult per resident reviewed patient seen and examined daughter at bedside as interpretor seen in ED last month for uti- treated with macrobid with resolution of symptoms -ecoli esbl 02/27/19 now with hyperglycemia and suprapubic pain and dysuria again constipation agree with ertapenem f/u cultures second recent UTI will obtain renal bladder sonogram Problem List - Problems (1) Complicated UTI (urinary tract infection) Code(s): N39.0 - URINARY TRACT INFECTION, SITE NOT SPECIFIED (2) History of ESBL E. coli infection Code(s): Z86.19 - PERSONAL HISTORY OF OTHER INFECTIOUS AND PARASITIC DISEASES (3) Constipation Code(s): K59.00 - CONSTIPATION, UNSPECIFIED
[2019-04-03] MEDS: ERTAPENEM SODIUM 1 GM in SODIUM CHLORIDE 50 ML IVPB SCH (18:30)
[2019-04-03] MEDS: SODIUM CHLORIDE 1,000 ML IV SCH (21:46)
[2019-04-03] MEDS ORDERED: HEPARIN NA (PORCINE) 5,000 UNITS/ML 1ML VIAL ONE (21:51)
[2019-04-03] MEDS: INSULIN (LEVEMIR) 100 UNITS/ML UNITS SQ SCH (22:15)
[2019-04-03] MEDS: ROSUVASTATIN CA 40 MG TABLET PO SCH (22:15)
[2019-04-04] MEDS: INSULIN SLIDING SCALE (NOVOLOG) 1 VIAL SQ SCH ×3 (06:45→17:13)
[2019-04-04 07:47] LABS: HEMATOCRIT 36.5 % (32.4-45.2); MEAN CELL VOLUME 89.6 fl (80-96); RBC 4.08 M/mm3 (3.60-5.2)
[2019-04-04 07:48] LABS: MCH 29.5 pg (25.7-33.7); MCHC 32.9 g/dl (32.0-36.0); PLATELET COUNT 176 K/MM3 (134-434); RDW 15.8 % (11.6-15.6)
[2019-04-04 07:53] LABS: ALBUMIN 2.8 g/dl (3.4-5.0); BILIRUBIN,TOTAL 0.3 mg/dL (0.2-1); CREATININE 0.8 mg/dL (0.55-1.3); POTASSIUM 3.9 mmol/L (3.5-5.1); TOT PROT 6.7 g/dl (6.4-8.2)
[2019-04-04] MEDS: LOSARTAN POTASSIUM 50 MG TABLET (FP) PO SCH (09:42)
[2019-04-04] MEDS: HEPARIN NA (PORCINE) 5,000 UNITS/ML 1ML VIAL SQ SCH ×2 (09:43→22:07)
[2019-04-04] MEDS: HYDROCHLOROTHIAZIDE 12.5 MG CAPSULE (FP) PO SCH (09:43)
[2019-04-04] MEDS: ERTAPENEM SODIUM 1 GM in SODIUM CHLORIDE 50 ML IVPB SCH (09:44)
[2019-04-04] MEDS: POLYETHYLENE GLYCOL 3350 119 GM BTL PO SCH (09:44)
[2019-04-04] MEDS: MEROPENEM 1 GM in DEXTROSE 5%-WATER 100 ML IVPB SCH ×2 (10:46→10:47)
--- NOTE | 2019-04-04 11:38 | PN ---
Progress Note, Physician Chief Complaint: patient seen and examined no distress renal sono note for possible renal mass - Current Medication List Current Medications: Active Medications Acetaminophen (Tylenol -) 650 mg PO Q4H PRN PRN Reason: PAIN OR FEVER Heparin Sodium (Porcine) (Heparin -) 5,000 unit SQ BID [facility] Last Admin: 04/04/19 09:43 Dose: 5,000 unit Hydrochlorothiazide (Hctz -) 12.5 mg PO DAILY [facility] Last Admin: 04/04/19 09:43 Dose: 12.5 mg Ertapenem 1 gm/ Sodium (Chloride) 50 mls @ 100 mls/hr IVPB DAILY [facility] Last Admin: 04/04/19 09:44 Dose: 100 mls/hr Insulin Aspart (Novolog Vial Sliding Scale -) 1 vial SQ TIDAC [facility]; Protocol Last Admin: 04/04/19 06:45 Dose: Not Given Insulin Detemir (Levemir Vial) 15 units SQ [facility] Stop: 04/08/19 23:59 Last Admin: 04/03/19 22:15 Dose: 15 units Losartan Potassium (Cozaar -) 100 mg PO DAILY [facility] Last Admin: 04/04/19 09:42 Dose: 100 mg Polyethylene Glycol (Miralax (For Daily Use) -) 17 gm PO DAILY [facility] Last Admin: 04/04/19 09:44 Dose: 17 gm Rosuvastatin Calcium (Crestor -) 40 mg PO HS [facility] Last Admin: 04/03/19 22:15 Dose: 40 mg - Objective Vital Signs: Vital Signs Temperature 99.1 F 04/04/19 10:36 Pulse Rate 88 04/04/19 10:36 Respiratory Rate 18 04/04/19 10:36 Blood Pressure 157/98 04/04/19 10:36 O2 Sat by Pulse Oximetry (%) 97 04/04/19 10:36 Constitutional: Yes: Calm, Thin Cardiovascular: Yes: Regular Rate and Rhythm, S1, S2 Respiratory: Yes: CTA Bilaterally Gastrointestinal: Yes: Normal Bowel Sounds, Soft Edema: No Neurological: Yes: Alert, Oriented Labs: CBC, BMP 04/04/19 06:40 04/04/19 06:40 Problem List - Problems (1) Complicated UTI (urinary tract infection) Assessment/Plan: ertrapenem id on board Code(s): N39.0 - URINARY TRACT INFECTION, SITE NOT SPECIFIED (2) Renal mass Assessment/Plan: urology and renal eval contrast enchanced ct scan Code(s): N28.89 - OTHER SPECIFIED DISORDERS OF KIDNEY AND URETER (3) Diabetes Assessment/Plan: [id number] bgm sliding scale Code(s): E11.9 - TYPE 2 DIABETES MELLITUS WITHOUT COMPLICATIONS Qualifiers: Diabetes mellitus type: type 2
[2019-04-04 14:35] VITALS: BMI 21.8
[2019-04-04] MEDS ORDERED: FLU VACCINE QUAD 60 MCG/0.5 ML (MDV 19-20) IM ONE (15:00)
--- NOTE | 2019-04-04 17:03 | CONSULT ---
Consult Consult Specialty:: Nephrology Reason for Consultation:: dehydration - History of Present Illness Chief Complaint: elevated glucose History of Present Illness: Pt is a 63 year old female with pmhx of ckd, dm, anemai and cva who presented with weakness. She also complains of elevated blood sugar. She was found to be hypernatremic and dehydrated. I was called to evaluate her. She is awake and appears more comfortable. She denies shortness of breath. She did complain of chills. She denies chest pain. She denies nsaid use. SHe was found to have a left renal lesion as well. 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) Endocrine: Yes: Diabetes Mellitus - Past Surgical History Past Surgical History: Yes: , Hysterectomy, Tubal Ligation - Alcohol/Substance Use Hx Alcohol Use: No History of Substance Use: reports: None - Smoking History Smoking history: Never smoked Have you smoked in the past 12 months: No - Social History Usual Living Arrangement: With Child ADL: Family Assistance Occupation: retired History of Recent Travel: No Home Medications - Allergies Allergies/Adverse Reactions: Allergies Allergy/AdvReac Type Severity Reaction Status Date / Time No Known Allergies Allergy Verified 04/04/19 06:59 - Home Medications Home Medications: Ambulatory Orders Rosuvastatin [Crestor -] 40 mg PO HS #30 tablet MDD 1 01/02/18 Aspirin [ASA -] 81 mg PO DAILY tab.chew 06/20/18 Polyethylene Glycol 3350 [Miralax 119 gm Btl -] 17 gm PO BID #2 bottle 07/12/18 Insulin (Novolog) [Novolog -] 0 units SQ AC #1 ea 07/27/18 Insulin (Levemir) [Levemir Vial] 20 units SQ AM units 08/22/18 Insulin (Levemir) [Levemir Vial] 15 units SQ AM units 09/08/18 Metoclopramide HCl [Reglan -] 10 mg PO TID PRN #90 tablet 09/08/18 Calcium Carbonate [Calcium] 0 mg PO DAILY 02/28/19 Insulin Glargine,Hum.rec.anlog [Toujeo Solostar] 300 unit SQ DAILY 02/28/19 Insulin Lispro [Admelog Solostar] 100 unit SQ DAILY 02/28/19 Losartan/Hydrochlorothiazide [Losartan-Hctz 100-12.5 mg Tab] 1 each PO DAILY 11/11 Mirabegron [Myrbetriq] 25 mg PO DAILY 02/28/19 Multivitamin,Ther and Minerals [Vitamin and Minerals] 1 each PO DAILY 02/28/19 Nitrofurantoin Monohyd/M-Cryst [Macrobid -] 100 mg PO BID 5 Days #10 capsule 11/11 Nitrofurantoin Monohyd/M-Cryst [Macrobid -] 100 mg PO BID #14 capsule 04/02/19 Family Medical History Family History: Denies Review of Systems - Review of Systems Constitutional: reports: Chills, Malaise Eyes: reports: No Symptoms HENT: reports: No Symptoms Cardiovascular: reports: No Symptoms Respiratory: reports: No Symptoms Gastrointestinal: reports: No Symptoms Genitourinary: reports: No Symptoms Musculoskeletal: reports: No Symptoms Integumentary: reports: No Symptoms Neurological: reports: No Symptoms Endocrine: reports: No Symptoms Hematology/Lymphatic: reports: No Symptoms Psychiatric: reports: No Symptoms Physical Exam Vital Signs: Vital Signs Temperature 98.1 F 04/04/19 14:45 Pulse Rate 83 04/04/19 14:45 Respiratory Rate 18 04/04/19 14:45 Blood Pressure 155/83 04/04/19 14:45 O2 Sat by Pulse Oximetry (%) 97 04/04/19 14:15 Constitutional: Yes: Calm Eyes: Yes: Conjunctiva Clear HENT: Yes: Atraumatic Neck: Yes: Supple Cardiovascular: Yes: S1, S2 Respiratory: Yes: CTA Bilaterally Gastrointestinal: Yes: Soft Renal/: Yes: WNL Musculoskeletal: Yes: WNL Edema: No Neurological: Yes: Oriented Labs: CBC, BMP 04/04/19 06:40 04/04/19 06:40 Laboratory Tests 09/08/18 09/09/18 02/27/19 05:20 05:45 23:46 WBC Hgb Sodium Creatinine 0.9 0.5 L 1.4 H Urine Protein Urine Glucose (UA) Urine Nitrite 04/02/19 04/02/19 04/03/19 16:47 16:47 06:00 WBC Hgb Sodium 146 H Creatinine 1.3 1.0 Urine Protein Negative Urine Glucose (UA) 3+ H Urine Nitrite Positive H 04/04/19 04/04/19 06:40 06:40 WBC 4.0 Hgb 12.0 Sodium Creatinine 0.8 Urine Protein Urine Glucose (UA) Urine Nitrite Imaging - Results Ultrasound: Report Reviewed Problem List - Problems (1) Complicated UTI (urinary tract infection) Code(s): N39.0 - URINARY TRACT INFECTION, SITE NOT SPECIFIED (2) Diabetes Code(s): E11.9 - TYPE 2 DIABETES MELLITUS WITHOUT COMPLICATIONS Qualifiers: Diabetes mellitus type: type 2 (3) Renal mass Code(s): N28.89 - OTHER SPECIFIED DISORDERS OF KIDNEY AND URETER Assessment/Plan Current Medications Generic Name Dose Route Start Last Admin Trade Name Freq PRN Reason Stop Dose Admin Acetaminophen 650 mg 04/02/19 21:00 Tylenol - PO Q4H PRN PAIN OR FEVER Heparin Sodium (Porcine) 5,000 unit 04/02/19 22:00 04/04/19 09:43 Heparin - SQ 5,000 unit BID JULIANA Administration Hydrochlorothiazide 12.5 mg 04/03/19 10:00 04/04/19 09:43 Hctz - PO 12.5 mg DAILY JULIANA Administration Ertapenem 1 gm/ Sodium 50 mls @ 100 mls/hr 04/03/19 16:30 04/04/19 09:44 Chloride IVPB 100 mls/hr DAILY JULIANA Administration Sodium Chloride 1,000 mls @ 75 mls/hr 04/04/19 14:45 Normal Saline - IV ASDIR JULIANA Insulin Aspart 1 vial 04/03/19 07:00 04/04/19 11:59 Novolog Vial Sliding Scale - SQ 2 units TIDAC JULIANA Administration Protocol Insulin Detemir 15 units 04/02/19 22:00 04/03/19 22:15 Levemir Vial SQ 04/08/19 23:59 15 units HS JULIANA Administration Losartan Potassium 100 mg 04/03/19 10:00 04/04/19 09:42 Cozaar - PO 100 mg DAILY JULIANA Administration Polyethylene Glycol 17 gm 04/03/19 10:00 04/04/19 09:44 Miralax (For Daily Use) - PO 17 gm DAILY JULIANA Administration Rosuvastatin Calcium 40 mg 04/02/19 22:00 10/09/19 22:15 Crestor - PO 40 mg HS JULIANA Administration Impression 1. hypernatremia 2. azotemia 3. DM poorly controlled 4. HTN 5. weakness 6. hx of CVA 7. dehydration 8. UTI Plan - start fluids - monitor renal function - follow cultures - cont abx - monitor blood sugar - discussed with medical team - pt will require further imaging for mass and urology eval
[2019-04-04] MEDS: SODIUM CHLORIDE 1,000 ML IV SCH (17:13)
[2019-04-04] MEDS ORDERED: PT OWN MED DRAWER 7, Y5N ONE (18:29)
[2019-04-04] MEDS: ROSUVASTATIN CA 20 MG TABLET (FP) PO SCH (22:06)
[2019-04-04] MEDS: INSULIN (LEVEMIR) 100 UNITS/ML UNITS SQ SCH (22:07)
[2019-04-05] MEDS: INSULIN SLIDING SCALE (NOVOLOG) 1 VIAL SQ SCH ×3 (06:05→16:56)
[2019-04-05] MEDS: SODIUM CHLORIDE 1,000 ML IV SCH (06:13)
[2019-04-05] MEDS ORDERED: INSULIN (NOVOLOG) ASPART 100 UNITS/ML 10ML VIAL ONE ×2 (07:56→16:49)
[2019-04-05] MEDS ORDERED: INSULIN (LEVEMIR) 100 UNITS/ML UNITS SQ ONE (07:56)
--- NOTE | 2019-04-05 08:09 | CON.GU ---
Consult Consult Specialty:: urology Reason for Consultation:: uti/left renal mass - History of Present Illness Chief Complaint: uti/left renal mass History of Present Illness: Patient is a private patient of mine who has been followed for microscopic hematuria and recurrent uti's. The patient currently is admitted with a urinary tract infection with poor control of her diabetes. Patient currently is afebrile with significant improvement in her urinary symptoms. The patient denies gross hematuria, nausea, vomiting, fever or chills. 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) Endocrine: Yes: Diabetes Mellitus - Past Surgical History Past Surgical History: Yes: , Hysterectomy, Tubal Ligation - Alcohol/Substance Use Hx Alcohol Use: No History of Substance Use: reports: None - Smoking History Smoking history: Never smoked Have you smoked in the past 12 months: No - Social History Usual Living Arrangement: With Child ADL: Family Assistance Occupation: retired History of Recent Travel: No Home Medications - Allergies Allergies/Adverse Reactions: Allergies Allergy/AdvReac Type Severity Reaction Status Date / Time No Known Allergies Allergy Verified 04/04/19 06:59 - Home Medications Home Medications: Ambulatory Orders Rosuvastatin [Crestor -] 40 mg PO HS #30 tablet MDD 1 01/02/18 Aspirin [ASA -] 81 mg PO DAILY tab.chew 06/20/18 Polyethylene Glycol 3350 [Miralax 119 gm Btl -] 17 gm PO BID #2 bottle 07/12/18 Insulin (Novolog) [Novolog -] 0 units SQ AC #1 ea 07/27/18 Insulin (Levemir) [Levemir Vial] 20 units SQ AM units 08/22/18 Insulin (Levemir) [Levemir Vial] 15 units SQ AM units 09/08/18 Metoclopramide HCl [Reglan -] 10 mg PO TID PRN #90 tablet 09/08/18 Calcium Carbonate [Calcium] 0 mg PO DAILY 02/28/19 Insulin Glargine,Hum.rec.anlog [Anshul Chun] 300 unit SQ DAILY 02/28/19 Insulin Lispro [Admelog Solostar] 100 unit SQ DAILY 02/28/19 Losartan/Hydrochlorothiazide [Losartan-Hctz 100-12.5 mg Tab] 1 each PO DAILY 11/11 Mirabegron [Myrbetriq] 25 mg PO DAILY 02/28/19 Multivitamin,Ther and Minerals [Vitamin and Minerals] 1 each PO DAILY 02/28/19 Nitrofurantoin Monohyd/M-Cryst [Macrobid -] 100 mg PO BID 5 Days #10 capsule 11/11 Nitrofurantoin Monohyd/M-Cryst [Macrobid -] 100 mg PO BID #14 capsule 04/02/19 Physical Exam- Vital Signs: Vital Signs Temperature 97.8 F 04/05/19 05:00 Pulse Rate 88 04/05/19 05:00 Respiratory Rate 20 04/04/19 23:44 Blood Pressure 143/75 04/05/19 05:00 O2 Sat by Pulse Oximetry (%) 97 04/04/19 21:00 Constitutional: Yes: Well Nourished, No Distress, Calm Eyes: Yes: WNL, Conjunctiva Clear, EOM Intact HENT: Yes: WNL, Atraumatic, Normocephalic Neck: Yes: WNL, Supple, Trachea Midline Cardiovascular: Yes: WNL Respiratory: Yes: WNL Gastrointestinal: Yes: WNL, Normal Bowel Sounds, Soft Renal/: Yes: WNL Kidneys: Yes: WNL Pelvis: Yes: WNL External Genitalia: Yes: WNL Musculoskeletal: Yes: WNL Extremities: Yes: WNL Integumentary: Yes: WNL Neurological: Yes: WNL, Alert, Oriented Labs: CBC, BMP 04/04/19 06:40 04/04/19 06:40 Imaging - Results Cat Scan: Report Reviewed Ultrasound: Report Reviewed Assessment/Plan impression uti left renal mass by U/S s/p unremarkable CT scan with contrast performed in 2017 uti right renal cyst plan patient may be followed as an outpatient will repeat CT as outpatient in 2-3 months
[2019-04-05 09:45] LABS: BASO % 0.7 % (0-2.0); EOS % 2.5 % (0-4.5); HEMATOCRIT 39.4 % (32.4-45.2); LYMPH % 27.2 % (8-40); MCH 29.5 pg (25.7-33.7); MCHC 32.9 g/dl (32.0-36.0); MEAN CELL VOLUME 89.5 fl (80-96); MEAN PLT VOLUME 10.6 fl (7.5-11.1); MONO % 7.2 % (3.8-10.2); NEUT % 62.4 % (42.8-82.8); PLATELET COUNT 179 K/MM3 (134-434); RDW 15.9 % (11.6-15.6); WHITE BLOOD COUNT 3.9 K/mm3 (4.0-10.0)
[2019-04-05 10:13] LABS: ALBUMIN 3.1 g/dl (3.4-5.0); BILIRUBIN,TOTAL 0.6 mg/dL (0.2-1); BLOOD UREA NITROGEN 16.2 mg/dL (7-18); CALCIUM 9.6 mg/dL (8.5-10.1); CREATININE 0.8 mg/dL (0.55-1.3); POTASSIUM 4.1 mmol/L (3.5-5.1); TOT PROT 7.4 g/dl (6.4-8.2)
[2019-04-05] MEDS: HYDROCHLOROTHIAZIDE 12.5 MG CAPSULE (FP) PO SCH (11:22)
[2019-04-05] MEDS: LOSARTAN POTASSIUM 50 MG TABLET (FP) PO SCH (11:22)
[2019-04-05] MEDS: ERTAPENEM SODIUM 1 GM in SODIUM CHLORIDE 50 ML IVPB SCH (11:23)
[2019-04-05] MEDS: HEPARIN NA (PORCINE) 5,000 UNITS/ML 1ML VIAL SQ SCH ×2 (11:23→21:32)
[2019-04-05] MEDS: POLYETHYLENE GLYCOL 3350 119 GM BTL PO SCH (11:23)
--- NOTE | 2019-04-05 12:02 | CONSULT ---
Consult Consult Specialty:: endocrine Referred by:: michelle calderon Reason for Consultation:: t2dm uncontrolled - History of Present Illness Chief Complaint: weakness high sugars History of Present Illness: 63 year old female with PMH of DMT2,diabetic neruropathy,CKD, poorly compliant, anemia, prior CVA w/ residual L sided weakness presented with weakness, and urinary symptoms , with burning, I am loosing all of my vitamins and weight". As per patient symptoms have been there for over a month and getting worse.has frequent labile blood sugars,despite taking insulin sugars tend to be high after eating.she denies cp cough nausea or vomiting. 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) Endocrine: Yes: Diabetes Mellitus - Past Surgical History Past Surgical History: Yes: , Hysterectomy, Tubal Ligation - Alcohol/Substance Use Hx Alcohol Use: No History of Substance Use: reports: None - Smoking History Smoking history: Never smoked Have you smoked in the past 12 months: No - Social History Usual Living Arrangement: With Child ADL: Family Assistance Occupation: retired History of Recent Travel: No Home Medications - Allergies Allergies/Adverse Reactions: Allergies Allergy/AdvReac Type Severity Reaction Status Date / Time No Known Allergies Allergy Verified 04/04/19 06:59 - Home Medications Home Medications: Ambulatory Orders Rosuvastatin [Crestor -] 40 mg PO HS #30 tablet MDD 1 01/02/18 Aspirin [ASA -] 81 mg PO DAILY tab.chew 06/20/18 Polyethylene Glycol 3350 [Miralax 119 gm Btl -] 17 gm PO BID #2 bottle 07/12/18 Insulin (Novolog) [Novolog -] 0 units SQ AC #1 ea 07/27/18 Insulin (Levemir) [Levemir Vial] 20 units SQ AM units 08/22/18 Insulin (Levemir) [Levemir Vial] 15 units SQ AM units 09/08/18 Metoclopramide HCl [Reglan -] 10 mg PO TID PRN #90 tablet 09/08/18 Calcium Carbonate [Calcium] 0 mg PO DAILY 02/28/19 Insulin Glargine,Hum.rec.anlog [Toujeo Solostar] 300 unit SQ DAILY 02/28/19 Insulin Lispro [Admelog Solostar] 100 unit SQ DAILY 02/28/19 Losartan/Hydrochlorothiazide [Losartan-Hctz 100-12.5 mg Tab] 1 each PO DAILY 11/11 Mirabegron [Myrbetriq] 25 mg PO DAILY 02/28/19 Multivitamin,Ther and Minerals [Vitamin and Minerals] 1 each PO DAILY 02/28/19 Nitrofurantoin Monohyd/M-Cryst [Macrobid -] 100 mg PO BID 5 Days #10 capsule 11/11 Nitrofurantoin Monohyd/M-Cryst [Macrobid -] 100 mg PO BID #14 capsule 04/02/19 Review of Systems - Review of Systems Constitutional: reports: Lethargy, Weakness Eyes: reports: Blurred Vision HENT: reports: No Symptoms Neck: reports: No Symptoms Cardiovascular: reports: Shortness of Breath Respiratory: reports: Exercise Intolerance, SOB on Exertion Gastrointestinal: reports: Bloating Genitourinary: reports: Frequency Breasts: reports: No Symptoms Reported Musculoskeletal: reports: Joint Pain, Muscle Pain, Muscle Cramps, Muscle Weakness Neurological: reports: Numbness, Unsteady Gait, Weakness Endocrine: reports: Unexplained Weight Loss Physical Exam Vital Signs: Vital Signs Temperature 97.8 F 04/05/19 05:00 Pulse Rate 88 04/05/19 05:00 Respiratory Rate 20 04/04/19 23:44 Blood Pressure 143/75 04/05/19 05:00 O2 Sat by Pulse Oximetry (%) 97 04/04/19 21:00 Constitutional: Yes: Calm Eyes: Yes: EOM Intact HENT: Yes: Normocephalic Neck: Yes: Trachea Midline Cardiovascular: Yes: Regular Rate and Rhythm Respiratory: Yes: CTA Bilaterally Gastrointestinal: Yes: Normal Bowel Sounds ...Rectal Exam: Yes: Deferred Renal/: Yes: WNL Musculoskeletal: Yes: Muscle Weakness Edema: No Peripheral Pulses WNL: Yes Neurological: Yes: Alert, Oriented Labs: CBC, BMP 04/05/19 08:20 04/05/19 08:20 Problem List - Problems (1) Complicated UTI (urinary tract infection) Code(s): N39.0 - URINARY TRACT INFECTION, SITE NOT SPECIFIED (2) Diabetes Code(s): E11.9 - TYPE 2 DIABETES MELLITUS WITHOUT COMPLICATIONS Qualifiers: Diabetes mellitus type: type 2 (3) UTI (urinary tract infection) Code(s): N39.0 - URINARY TRACT INFECTION, SITE NOT SPECIFIED Qualifiers: Urinary tract infection type: site unspecified Hematuria presence: without hematuria Qualified Code(s): N39.0 - Urinary tract infection, site not specified (4) ALEX (acute kidney injury) Code(s): N17.9 - ACUTE KIDNEY FAILURE, UNSPECIFIED (5) Abdominal pain Code(s): R10.9 - UNSPECIFIED ABDOMINAL PAIN (6) Abscesses of both axillae Code(s): L02.411 - CUTANEOUS ABSCESS OF RIGHT AXILLA; L02.412 - CUTANEOUS ABSCESS OF LEFT AXILLA (7) Acute renal failure Code(s): N17.9 - ACUTE KIDNEY FAILURE, UNSPECIFIED Assessment/Plan Current Active Problems Complicated UTI (urinary tract infection) (Acute) Diabetes (Acute) Renal mass (Acute) UTI (urinary tract infection) (Acute) Abnormal Lab Results 04/05/19 04/05/19 04/05/19 08:20 08:20 08:20 WBC 3.9 L RDW 15.9 H Chloride 110 H Anion Gap 4 L Hemoglobin A1c % 10.4 H Albumin 3.1 L Laboratory Results - last 24 hr 04/04/19 04/05/19 04/05/19 16:21 06:05 08:20 WBC 3.9 L RBC 4.40 Hgb 13.0 Hct 39.4 MCV 89.5 MCH 29.5 MCHC 32.9 RDW 15.9 H Plt Count 179 MPV 10.6 Absolute Neuts (auto) 2.4 Neutrophils % 62.4 Lymphocytes % 27.2 Monocytes % 7.2 Eosinophils % 2.5 D Basophils % 0.7 Nucleated RBC % 0 Sodium Potassium Chloride Carbon Dioxide Anion Gap BUN Creatinine Est GFR (CKD-EPI)AfAm Est GFR (CKD-EPI)NonAf POC Glucometer 248 99 Random Glucose Hemoglobin A1c % Calcium Total Bilirubin AST ALT Alkaline Phosphatase Total Protein Albumin 04/05/19 04/05/19 04/05/19 08:20 08:20 11:25 WBC RBC Hgb Hct MCV MCH MCHC RDW Plt Count MPV Absolute Neuts (auto) Neutrophils % Lymphocytes % Monocytes % Eosinophils % Basophils % Nucleated RBC % Sodium 143 Potassium 4.1 Chloride 110 H Carbon Dioxide 29 Anion Gap 4 L BUN 16.2 Creatinine 0.8 Est GFR (CKD-EPI)AfAm 89.67 Est GFR (CKD-EPI)NonAf 77.37 POC Glucometer 288 Random Glucose 84 Hemoglobin A1c % 10.4 H Calcium 9.6 Total Bilirubin 0.6 AST 17 ALT 17 Alkaline Phosphatase 81 Total Protein 7.4 Albumin 3.1 L plan\\ levemir dose 15 unit am levemir 7unit hs if sugar over 150mg/dl bgm coverage scale diet and close op follow up
--- NOTE | 2019-04-05 15:50 | PN ---
Progress Note, Physician Chief Complaint: patient seen and examined awake alert - Current Medication List Current Medications: Active Medications Acetaminophen (Tylenol -) 650 mg PO Q4H PRN PRN Reason: PAIN OR FEVER Last Admin: 04/05/19 06:18 Dose: 650 mg Heparin Sodium (Porcine) (Heparin -) 5,000 unit SQ BID [facility] Last Admin: 04/05/19 11:23 Dose: 5,000 unit Hydrochlorothiazide (Hctz -) 12.5 mg PO DAILY [facility] Last Admin: 04/05/19 11:22 Dose: 12.5 mg Ertapenem 1 gm/ Sodium (Chloride) 50 mls @ 100 mls/hr IVPB DAILY [facility] Last Admin: 04/05/19 11:23 Dose: 100 mls/hr Sodium Chloride (Normal Saline -) 1,000 mls @ 75 mls/hr IV ASDIR [facility] Last Admin: 04/05/19 06:13 Dose: 75 mls/hr Insulin Aspart (Novolog Vial Sliding Scale -) 1 vial SQ TIDAC [facility]; Protocol Insulin Detemir (Levemir Vial) 7 units SQ HS [facility] Stop: 04/08/19 23:59 Insulin Detemir (Levemir Vial) 15 units SQ AM [facility] Losartan Potassium (Cozaar -) 100 mg PO DAILY [facility] Last Admin: 04/05/19 11:22 Dose: 100 mg Polyethylene Glycol (Miralax (For Daily Use) -) 17 gm PO DAILY [facility] Last Admin: 04/05/19 11:23 Dose: 17 gm Rosuvastatin Calcium (Crestor -) 40 mg PO HS [facility] Last Admin: 04/04/19 22:06 Dose: 40 mg - Objective Vital Signs: Vital Signs Temperature 98.2 F 04/05/19 14:28 Pulse Rate 88 04/05/19 14:28 Respiratory Rate 20 04/05/19 14:28 Blood Pressure 156/88 04/05/19 14:28 O2 Sat by Pulse Oximetry (%) 97 04/04/19 21:00 Constitutional: Yes: Calm Neck: Yes: Trachea Midline Cardiovascular: Yes: Regular Rate and Rhythm, S1, S2 Respiratory: Yes: CTA Bilaterally Gastrointestinal: Yes: Normal Bowel Sounds, Soft Edema: No Neurological: Yes: Alert Labs: CBC, BMP 04/05/19 08:20 04/05/19 08:20 Problem List - Problems (1) Complicated UTI (urinary tract infection) Assessment/Plan: charles sauceda on board Microbiology 04/02/19 18:58 Urine - Urine Clean Catch Urine Culture - Final Escherichia Coli Esbl [employer] Code(s): N39.0 - URINARY TRACT INFECTION, SITE NOT SPECIFIED (2) Renal mass Assessment/Plan: urology consult noted to have repeat ct scan in [address] scan done Code(s): N28.89 - OTHER SPECIFIED DISORDERS OF KIDNEY AND URETER (3) Diabetes Assessment/Plan: hgba1c 10.8 uncontrollled bgm sliding scale levemir 15 units AM and 7 units HS Code(s): E11.9 - TYPE 2 DIABETES MELLITUS WITHOUT COMPLICATIONS Qualifiers: Diabetes mellitus type: type 2
--- NOTE | 2019-04-05 16:51 | PN ---
Progress Note, Physician History of Present Illness: Pt seen and examined at bedside. She is awake and alert. She denies shortness of breath. - Current Medication List Current Medications: Active Medications Acetaminophen (Tylenol -) 650 mg PO Q4H PRN PRN Reason: PAIN OR FEVER Last Admin: 04/05/19 06:18 Dose: 650 mg Heparin Sodium (Porcine) (Heparin -) 5,000 unit SQ BID [facility] Last Admin: 04/05/19 11:23 Dose: 5,000 unit Hydrochlorothiazide (Hctz -) 12.5 mg PO DAILY [facility] Last Admin: 04/05/19 11:22 Dose: 12.5 mg Ertapenem 1 gm/ Sodium (Chloride) 50 mls @ 100 mls/hr IVPB DAILY [facility] Last Admin: 04/05/19 11:23 Dose: 100 mls/hr Sodium Chloride (Normal Saline -) 1,000 mls @ 75 mls/hr IV ASDIR [facility] Last Admin: 04/05/19 06:13 Dose: 75 mls/hr Insulin Aspart (Novolog Vial Sliding Scale -) 1 vial SQ TIDAC [facility]; Protocol Insulin Detemir (Levemir Vial) 7 units SQ HS [facility] Stop: 04/08/19 23:59 Insulin Detemir (Levemir Vial) 15 units SQ AM [facility] Losartan Potassium (Cozaar -) 100 mg PO DAILY [facility] Last Admin: 04/05/19 11:22 Dose: 100 mg Polyethylene Glycol (Miralax (For Daily Use) -) 17 gm PO DAILY [facility] Last Admin: 04/05/19 11:23 Dose: 17 gm Rosuvastatin Calcium (Crestor -) 40 mg PO HS [facility] Last Admin: 04/04/19 22:06 Dose: 40 mg - Objective Vital Signs: Vital Signs Temperature 98.2 F 04/05/19 14:28 Pulse Rate 88 04/05/19 14:28 Respiratory Rate 20 04/05/19 14:28 Blood Pressure 156/88 04/05/19 14:28 O2 Sat by Pulse Oximetry (%) 97 04/05/19 09:00 Constitutional: Yes: Calm Eyes: Yes: Conjunctiva Clear HENT: Yes: Atraumatic Neck: Yes: Supple Cardiovascular: Yes: S1, S2 Respiratory: Yes: CTA Bilaterally Gastrointestinal: Yes: Soft Genitourinary: Yes: WNL Musculoskeletal: Yes: WNL Edema: No Neurological: Yes: Oriented Psychiatric: Yes: Oriented Labs: CBC, BMP 04/05/19 08:20 04/05/19 08:20 Problem List - Problems (1) Complicated UTI (urinary tract infection) Code(s): N39.0 - URINARY TRACT INFECTION, SITE NOT SPECIFIED (2) Diabetes Code(s): E11.9 - TYPE 2 DIABETES MELLITUS WITHOUT COMPLICATIONS Qualifiers: Diabetes mellitus type: type 2 (3) Renal mass Code(s): N28.89 - OTHER SPECIFIED DISORDERS OF KIDNEY AND URETER Assessment/Plan Current Medications Generic Name Dose Route Start Last Admin Trade Name Freq PRN Reason Stop Dose Admin Acetaminophen 650 mg 04/02/19 21:00 04/05/19 06:18 Tylenol - PO 650 mg Q4H PRN Administration PAIN OR FEVER Heparin Sodium (Porcine) 5,000 unit 04/02/19 22:00 04/05/19 11:23 Heparin - SQ 5,000 unit BID [facility] Administration Hydrochlorothiazide 12.5 mg 04/03/19 10:00 04/05/19 11:22 Hctz - PO 12.5 mg DAILY [facility] Administration Ertapenem 1 gm/ Sodium 50 mls @ 100 mls/hr 04/03/19 16:30 04/05/19 11:23 Chloride IVPB 100 mls/hr DAILY [facility] Administration Sodium Chloride 1,000 mls @ 75 mls/hr 04/04/19 14:45 04/05/19 06:13 Normal Saline - IV 75 mls/hr ASDIR [facility] Administration Insulin Aspart 1 vial 04/05/19 12:06 Novolog Vial Sliding Scale - SQ TIDAC [facility] Protocol Insulin Detemir 7 units 04/05/19 12:05 Levemir Vial SQ 04/08/19 23:59 HS JULIANA Insulin Detemir 15 units 04/06/19 07:00 Levemir Vial SQ AM [facility] Losartan Potassium 100 mg 04/03/19 10:00 04/05/19 11:22 Cozaar - PO 100 mg DAILY [facility] Administration Polyethylene Glycol 17 gm 04/03/19 10:00 04/05/19 11:23 Miralax (For Daily Use) - PO 17 gm DAILY [facility] Administration Rosuvastatin Calcium 40 mg 04/04/19 21:29 04/04/19 22:06 Crestor - PO 40 mg HS [facility]UL[facility] Administration Impression 1. hypernatremia 2. azotemia 3. DM poorly controlled 4. HTN 5. weakness 6. hx of CVA 7. dehydration 8. UTI Plan - can change fluids to 1/2 ns - ct scan shows enhancing left renal mass, urology eval - monitor renal function - repeat labs in am - cont abx - discussed with medical team
--- NOTE | 2019-04-05 17:51 | PN ---
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
[2019-04-05] MEDS: SODIUM CHLORIDE 0.45% 1,000 ML IV SCH (20:19)
[2019-04-05] MEDS: ROSUVASTATIN CA 20 MG TABLET (FP) PO SCH (21:32)
[2019-04-05] MEDS: INSULIN (LEVEMIR) 100 UNITS/ML UNITS SQ SCH (21:32)
[2019-04-06] MEDS: INSULIN (LEVEMIR) 100 UNITS/ML UNITS SQ SCH ×2 (06:34→21:45)
[2019-04-06] MEDS: INSULIN SLIDING SCALE (NOVOLOG) 1 VIAL SQ SCH ×3 (06:34→17:07)
[2019-04-06] MEDS ORDERED: INSULIN (LEVEMIR) 100 UNITS/ML UNITS SQ SCH (07:00)
[2019-04-06] MEDS: HYDROCHLOROTHIAZIDE 12.5 MG CAPSULE (FP) PO SCH (09:37)
[2019-04-06] MEDS: HEPARIN NA (PORCINE) 5,000 UNITS/ML 1ML VIAL SQ SCH ×2 (09:37→21:46)
[2019-04-06] MEDS: ERTAPENEM SODIUM 1 GM in SODIUM CHLORIDE 50 ML IVPB SCH (09:37)
[2019-04-06] MEDS: LOSARTAN POTASSIUM 50 MG TABLET (FP) PO SCH (09:37)
[2019-04-06] MEDS: POLYETHYLENE GLYCOL 3350 119 GM BTL PO SCH (09:38)
[2019-04-06 10:50] LABS: BASO % 1.4 % (0-2.0); EOS % 2.3 % (0-4.5); HEMATOCRIT 37.6 % (32.4-45.2); HEMOGLOBIN 12.3 GM/dL (10.7-15.3); LYMPH % 28.8 % (8-40); MCH 29.1 pg (25.7-33.7); MCHC 32.7 g/dl (32.0-36.0); MEAN CELL VOLUME 88.8 fl (80-96); NEUT % 59.5 % (42.8-82.8); PLATELET COUNT 180 K/MM3 (134-434); RBC 4.24 M/mm3 (3.60-5.2); RDW 15.8 % (11.6-15.6); WHITE BLOOD COUNT 3.6 K/mm3 (4.0-10.0)
[2019-04-06 11:24] LABS: BILIRUBIN,TOTAL 0.4 mg/dL (0.2-1); BLOOD UREA NITROGEN 17.4 mg/dL (7-18); CALCIUM 9.2 mg/dL (8.5-10.1); CREATININE 0.9 mg/dL (0.55-1.3); POTASSIUM 4.2 mmol/L (3.5-5.1); TOT PROT 7.2 g/dl (6.4-8.2)
[2019-04-06] MEDS: SODIUM CHLORIDE 0.45% 1,000 ML IV SCH (13:03)
[2019-04-06] MEDS ORDERED: DOCUSATE SODIUM 100 MG CAPSULE (FP) PO PRN (13:29)
[2019-04-06] MEDS ORDERED: MAGNESIUM CITRATE 300 ML BOTTLE PO ONE (13:29)
--- NOTE | 2019-04-06 13:34 | DS ---
Physical Examination Vital Signs: Vital Signs Temperature 98.0 F 04/06/19 08:03 Pulse Rate 95 H 04/06/19 08:03 Respiratory Rate 14 04/06/19 08:03 Blood Pressure 138/77 04/06/19 08:03 O2 Sat by Pulse Oximetry (%) 97 04/06/19 09:00 Constitutional: Yes: No Distress Eyes: Yes: WNL HENT: Yes: WNL Neck: Yes: WNL Cardiovascular: Yes: WNL Respiratory: Yes: WNL Gastrointestinal: Yes: WNL Breast(s): Yes: Gynecomastia Extremities: Yes: WNL Edema: No Peripheral Pulses WNL: Yes Integumentary: Yes: WNL Wound/Incision: Yes: Clean/Dry Neurological: Yes: WNL ...Motor Strength: WNL Psychiatric: Yes: WNL Labs: CBC, BMP 04/06/19 09:20 04/06/19 09:20 Discharge Summary Problems reviewed: Yes Reason For Visit: URINARY TRACT INFECTION Current Active Problems Complicated UTI (urinary tract infection) (Acute) Diabetes (Acute) Renal mass (Acute) UTI (urinary tract infection) (Acute) Procedures: Principal: CT SCAN/LABS Other Procedures: [facility] Course: TREATED FOR UTI WITH IV ABX, WILL NEED FOLLOW UP OF CT SCAN FINDING WITH DR ZULETA NEPHROLOGY AND DR ANGELES UROLOGY FOR RENAL SSUSPICIOUS MASS. Plan of Treatment: MACROBID BID FOR [address] UTI SEE DR ANGELES AND DR GLOVER IN 2 WEEKS Goals: COMPLETE ANTIBIOTICS, GLUCOSE CONTROL Condition: Stable - Instructions Diet, Activity, Other Instructions: SEE YOUR DOCTOR IN 3-4 [address] UP WITH DR ANGELES IN 2 WEEKS FOR RENAL MASS SEEN ON CT SCAN Referrals: Ivan Hatch MD [Primary Care Provider] - Disposition: HOME - Home Medications Comprehensive Discharge Medication List: Ambulatory Orders Rosuvastatin [Crestor -] 40 mg PO HS #30 tablet MDD 1 01/02/18 Aspirin [ASA -] 81 mg PO DAILY tab.chew 06/20/18 Polyethylene Glycol 3350 [Miralax 119 gm Btl -] 17 gm PO BID #2 bottle 07/12/18 Insulin (Novolog) [Novolog -] 0 units SQ AC #1 ea 07/27/18 Insulin (Levemir) [Levemir Vial] 20 units SQ AM units 08/22/18 Insulin (Levemir) [Levemir Vial] 15 units SQ AM units 09/08/18 Calcium Carbonate [Calcium] 0 mg PO DAILY 02/28/19 Insulin Glargine,Hum.rec.anlog [Toujeo Solostar] 300 unit SQ DAILY 02/28/19 Insulin Lispro [Admelog Solostar] 100 unit SQ DAILY 02/28/19 Losartan/Hydrochlorothiazide [Losartan-Hctz 100-12.5 mg Tab] 1 each PO DAILY 11/11 Mirabegron [Myrbetriq] 25 mg PO DAILY 02/28/19 Multivitamin,Ther and Minerals [Vitamin and Minerals] 1 each PO DAILY 02/28/19 Nitrofurantoin Monohyd/M-Cryst [Macrobid -] 100 mg PO BID #14 capsule 04/02/19 Acetaminophen [Tylenol .Regular Strength -] 650 mg PO Q4H PRN tablet 04/06/19 Docusate Sodium [Colace] 100 mg PO HS #3 capsule 04/06/19 Nitrofurantoin Monohyd/M-Cryst [Macrobid -] 100 mg PO BID 7 Days #14 capsule 06/13 Prescription Drug Monitoring Program (I-STOP) results: I-STOP not reviewed
[2019-04-06] MEDS ORDERED: SODIUM PHOSPHATE/NA BIPHOS 133 ML ENEMA PR ONE (14:15)
--- NOTE | 2019-04-06 20:49 | PN ---
Progress Note (short form) - Note Progress Note: renal mass s/p ct with contrast Current Medications Acetaminophen (Tylenol -) 650 mg PO Q4H PRN PRN Reason: PAIN OR FEVER Last Admin: 04/05/19 06:18 Dose: 650 mg Docusate Sodium (Colace -) 100 mg PO Q8H PRN PRN Reason: CONSTIPATION Heparin Sodium (Porcine) (Heparin -) 5,000 unit SQ BID [facility] Last Admin: 04/06/19 09:37 Dose: 5,000 unit Hydrochlorothiazide (Hctz -) 12.5 mg PO DAILY [facility] Last Admin: 04/06/19 09:37 Dose: 12.5 mg Ertapenem 1 gm/ Sodium (Chloride) 50 mls @ 100 mls/hr IVPB DAILY [facility] Last Admin: 04/06/19 09:37 Dose: 100 mls/hr Insulin Aspart (Novolog Vial Sliding Scale -) 1 vial SQ TIDAC [facility]; Protocol Last Admin: 04/06/19 17:07 Dose: 6 units Insulin Detemir (Levemir Vial) 7 units SQ HS [facility] Stop: 04/08/19 23:59 Last Admin: 04/05/19 21:32 Dose: 7 units Insulin Detemir (Levemir Vial) 15 units SQ AM [facility] Last Admin: 04/06/19 06:34 Dose: 15 units Losartan Potassium (Cozaar -) 100 mg PO DAILY [facility] Last Admin: 04/06/19 09:37 Dose: 100 mg Polyethylene Glycol (Miralax (For Daily Use) -) 17 gm PO DAILY [facility] Last Admin: 04/06/19 09:38 Dose: 17 gm Rosuvastatin Calcium (Crestor -) 40 mg PO HS [facility] Last Admin: 04/05/19 21:32 Dose: 40 mg Last Vital Signs Temp Pulse Resp BP Pulse Ox 98.0 F 95 H 14 138/77 97 04/06/19 08:03 04/06/19 08:03 04/06/19 08:03 04/06/19 08:03 04/06/19 09:00 CBC, BMP 04/06/19 09:20 04/06/19 09:20
[2019-04-06] MEDS ORDERED: INSULIN (NOVOLOG) ASPART 100 UNITS/ML 10ML VIAL ONE (21:36)
[2019-04-06] MEDS: ROSUVASTATIN CA 20 MG TABLET (FP) PO SCH (21:45)
[2019-04-07] MEDS: INSULIN SLIDING SCALE (NOVOLOG) 1 VIAL SQ SCH ×2 (06:41→11:14)
[2019-04-07] MEDS: INSULIN (LEVEMIR) 100 UNITS/ML UNITS SQ SCH (06:42)
[2019-04-07 07:31] VITALS: PULSE 97
[2019-04-07] MEDS ORDERED: PT OWN MED DRAWER 7, Y5N ONE (09:20)
[2019-04-07] MEDS: HYDROCHLOROTHIAZIDE 12.5 MG CAPSULE (FP) PO SCH (09:54)
[2019-04-07] MEDS: LOSARTAN POTASSIUM 50 MG TABLET (FP) PO SCH (09:56)
[2019-04-07] MEDS: POLYETHYLENE GLYCOL 3350 119 GM BTL PO SCH (09:57)
[2019-04-07] MEDS: ERTAPENEM SODIUM 1 GM in SODIUM CHLORIDE 50 ML IVPB SCH (09:57)
[2019-04-07] MEDS: HEPARIN NA (PORCINE) 5,000 UNITS/ML 1ML VIAL SQ SCH (09:57)
[2019-04-07] MEDS ORDERED: INSULIN (NOVOLOG) ASPART 100 UNITS/ML 10ML VIAL ONE (11:11)
[2019-04-07 14:27] VITALS: BP 122/72; TEMP 97.7
== END 2019-04-07 16:46 | disposition home or self-care (01) | DRG 683 ==
LOC: JER 15:56 → JERBED 19:49 → J6S 04-04 12:32
PROVIDERS: ADMIT Family Medicine; ATTEND Family Medicine
DX: N17.9 Acute kidney failure, unspecified (principal); I69.354 Hemiplegia and hemiparesis following cerebral infarction affecting left non-dominant side; N39.0 Urinary tract infection, site not specified; E87.0 Hyperosmolality and hypernatremia; I12.9 Hypertensive chronic kidney disease with stage 1 through stage 4 chronic kidney disease, or unspecified chronic kidney disease; E11.22 Type 2 diabetes mellitus with diabetic chronic kidney disease; N18.9 Chronic kidney disease, unspecified; K59.09 Other constipation; E78.00 Pure hypercholesterolemia, unspecified; F32.9 Major depressive disorder, single episode, unspecified; K21.9 Gastro-esophageal reflux disease without esophagitis; R31.9 Hematuria, unspecified; E11.40 Type 2 diabetes mellitus with diabetic neuropathy, unspecified; N28.1 Cyst of kidney, acquired; R79.89 Other specified abnormal findings of blood chemistry; Z89.022 Acquired absence of left finger(s); D64.9 Anemia, unspecified; E86.0 Dehydration
CPT/HCPCS: 36415; 74177-TC; 76775-TC; 76856-TC; 80048; 80053; 81003; 82010; 82803; 82962; 83036; 84484; 85025; 85027; 87086; 87186; 93005; 93010; 99283-25; G0008; J1644; J7030; Q2036; Q9967

== ENCOUNTER 2019-04-10 17:33 | Emergency (ER) | payer OTHER ==
[2019-04-10 17:43] VITALS: TEMP 97.8; BMI 25.6
--- NOTE | 2019-04-10 17:44 | PDOC ---
History of Present Illness - General Chief Complaint: Blood Sugar Problem Stated Complaint: HYPOGLYCEMIA Time Seen by Provider: 04/10/19 17:43 History Source: Patient Exam Limitations: No Limitations, Language Barrier (uruguayan) - History of Present Illness Initial Comments: 04/10/19 17:43 Anastasia Patel is a 63yF w PMHx IDDM, CKD, diabetic neuropathy, anemia, prior CVA w/ residual L sided weakness presenting w hypoglycemia. Went to PCP clinic at 12p today, found to be hyperglycemic, given unknown amount of insulin. Did not eat after. 3pm, family member found pt unconscious and diaphoretic on bed. Given some juice, started D10 fluids by EMS on way to ED. Currently complaining of mild R suprapubic region discomfort. Denies fever, headache, nausea/vomiting, SOB, chest pain, urinary/bowel movement changes. Was d/c 4d ago from hospital for UTI treatment. Past History - Past Medical History Allergies/Adverse Reactions: Allergies Allergy/AdvReac Type Severity Reaction Status Date / Time No Known Allergies Allergy Verified 04/10/19 18:41 Home Medications: Ambulatory Orders Aspirin [ASA -] 81 mg PO DAILY tab.chew 06/20/18 Calcium Carbonate [Calcium] 0 mg PO DAILY 02/28/19 Insulin Glargine,Hum.rec.anlog [Toujeo Solostar] 35 unit SQ DAILY 02/28/19 Insulin Lispro [Admelog Solostar] 0 unit SQ PRN PRN 02/28/19 Losartan/Hydrochlorothiazide [Losartan-Hctz 100-12.5 mg Tab] 1 each PO DAILY 11/11 Mirabegron [Myrbetriq] 25 mg PO DAILY 02/28/19 Acetaminophen [Tylenol .Regular Strength -] 650 mg PO Q4H PRN tablet 04/06/19 Nitrofurantoin Monohyd/M-Cryst [Macrobid -] 100 mg PO BID 7 Days #14 capsule 06/13 Anemia: No Asthma: No Cancer: No Cardiac Disorders: No CVA: Yes COPD: No CHF: No Dementia: No Diabetes: Yes (TYPE 2) GI Disorders: Yes (CONSTIPATION) Disorders: Yes (recurrent UTIs) HTN: Yes Hypercholesterolemia: Yes Liver Disease: No Psychiatric Problems: Yes (Depression) Seizures: No Thyroid Disease: No - Surgical History Abdominal Surgery: No Appendectomy: No Cardiac Surgery: No Cholecystectomy: No Gastric Stapling: No GI Surgery: No Lung Surgery: No Neurologic Surgery: No Orthopedic Surgery: No - Immunization History TDAP Vaccination: Yes Immunization Up to Date: No - Psycho Social/Smoking Cessation Hx Smoking History: Never smoked Have you smoked in the past 12 months: No Hx Alcohol Use: No Drug/Substance Use Hx: No Substance Use Type: None Hx Substance Use Treatment: No Review of Systems - Review of Systems Able to Perform ROS?: Yes Constitutional: No: Chills, Fever HEENTM: No: Eye Pain, Nose Pain, Throat Pain, Mouth Pain Respiratory: No: Cough, Shortness of Breath Cardiac (ROS): No: Chest Pain, Palpitations, Syncope ABD/GI: No: Abdominal Distended, Constipated, Diarrhea, Nausea, Vomiting : No: Burning, Dysuria, Discharge, Frequency, Flank Pain Musculoskeletal: No: Back Pain, Joint Pain, Muscle Pain Integumentary: Yes: Sweating. No: Bruising, Dryness, Erythema Neurological: No: Headache, Seizure, Tingling, Tremors Psychiatric: No: Anxiety, Depression, Stressors Endocrine: No: Excessive Sweating, Flushing, Intolerance to Cold, Intolerance to Heat Hematologic/Lymphatic: No: Anemia, Blood Clots *Physical Exam - Vital Signs Last Vital Signs Temp Pulse Resp BP Pulse Ox 97.8 F 79 18 131/74 99 04/10/19 17:41 04/10/19 17:41 04/10/19 17:41 04/10/19 17:41 04/10/19 17:41 - Physical Exam General Appearance: Yes: Nourished, Appropriately Dressed. No: Apparent Distress HEENT: positive: EOMI, MANDI, Normal Voice, Hearing Grossly Normal. negative: Scleral Icterus (R), Scleral Icterus (L), Nasal Congestion, Rhinorrhea Respiratory/Chest: positive: Lungs Clear, Normal Breath Sounds. negative: Chest Tender, Respiratory Distress Cardiovascular: positive: Regular Rhythm, Regular Rate, S1, S2. negative: Edema , Murmur Gastrointestinal/Abdominal: positive: Normal Bowel Sounds, Tender (mild discomfort R suprapubic ), Flat, Soft. negative: Organomegaly, Distended, Guarding Musculoskeletal: negative: CVA Tenderness (R), CVA Tenderness (L) Integumentary: positive: Normal Color Neurologic: positive: Fully Oriented, Alert, Normal Response, Responsive. negative: Numbness, Confused, Disoriented ED Treatment Course - LABORATORY CBC & Chemistry Diagram: 04/10/19 20:10 04/10/19 20:10 Medical Decision Making - Medical Decision Making 04/10/19 19:06 CBC CMP hydroxybutyrate UA Ucx EKG BG 111, 117, WBC 10.7, no infection/ketones on UA, normal b-hydroxybutyrate EKG shows NSR, LVH, HR 91, QTc 457, no ST changes --- nAastasia Patel is a 63yF w PMHx IDDM, CKD, diabetic neuropathy, anemia, prior CVA w/ residual L sided weakness presenting w hypoglycemia and R suprapubic pain. Hypoglycemia probably d/t overdosed insulin administration at PCP without eating after. Neuro intact. Repeat BG 111 after D10 given. Not in DKA (no urine ketones or b-hydroxybutyrate), no evidence of UTI. Dc home w PCP f /u Discharge - Discharge Information Problems reviewed: Yes Clinical Impression/Diagnosis: Hypoglycemia Condition: Improved Disposition: HOME - Admission No - Follow up/Referral Referrals: Darion Morales [Primary Care Provider] - - Patient Discharge Instructions Patient Printed Discharge Instructions: DI for Hypoglycemia Additional Instructions: You were seen for low glucose levels. Your labs do not show anything concerning. You were given glucose. Please make an appointment with your primary care doctor regarding this visit. Eat/drink food after taking insulin to avoid low glucose. Come back to the ED if you lose consciousness, chest pain, or trouble breathing - Post Discharge Activity
[2019-04-10 19:27] LABS: PH,URINE 5.5 (5.0-8.0); URINE APPEARANCE CLEAR; URINE BILIRUBIN NEGATIVE (NEGATIVE); URINE COLOR YELLOW; URINE GLUCOSE (UA) 3+ (NEGATIVE); URINE KETONE NEGATIVE (NEGATIVE); URINE LEUK ESTERASE NEGATIVE (NEGATIVE); URINE NITRITE NEGATIVE (NEGATIVE); URINE PROTEIN NEGATIVE (NEGATIVE); URINE UROBILINOGEN 0.2 mg/dL (0.2-1.0)
[2019-04-10 20:22] LABS: BASO % 0.5 % (0-2.0); EOS % 0.1 % (0-4.5); HEMATOCRIT 37.1 % (32.4-45.2); HEMOGLOBIN 12.1 GM/dL (10.7-15.3); LYMPH % 5.9 % (8-40); MCH 29.3 pg (25.7-33.7); MCHC 32.6 g/dl (32.0-36.0); MEAN CELL VOLUME 89.9 fl (80-96); MEAN PLT VOLUME 10.3 fl (7.5-11.1); MONO % 3.6 % (3.8-10.2); NEUT % 89.9 % (42.8-82.8); PLATELET COUNT 184 K/MM3 (134-434); RBC 4.12 M/mm3 (3.60-5.2); WHITE BLOOD COUNT 10.7 K/mm3 (4.0-10.0)
[2019-04-10 20:56] LABS: ALBUMIN 3.4 g/dl (3.4-5.0); BILIRUBIN,TOTAL 0.2 mg/dL (0.2-1); BLOOD UREA NITROGEN 27.9 mg/dL (7-18); CALCIUM 9.4 mg/dL (8.5-10.1); POTASSIUM 4.3 mmol/L (3.5-5.1); TOT PROT 7.8 g/dl (6.4-8.2)
[2019-04-10 21:22] VITALS: BP 130/76; PULSE 74
--- NOTE | 2019-04-11 02:00 | PDOC ---
Attending Attestation - Resident Resident Name: Jim Mahajan - ED Attending Attestation I have performed the following: I have examined & evaluated the patient, The case was reviewed & discussed with the resident, I agree w/resident's findings & plan, Exceptions are as noted - HPI HPI: 04/11/19 01:57 63 PMHx IDDM, CKD, diabetic neuropathy, anemia, prior CVA w/ residual L sided weakness presenting w hypoglycemia. Patient is here with her daughter states that she was in clinic earlier found to be hyperglycemia with a sugar of the 400s was given insulin sugar was rechecked it was still high so she was given a second dose subsequently went home and became acutely altered was found to be hypoglycemic EMS gave the patient dextrose and some juice since that time she has been feeling better currently denies any chest pain shortness of breath has been treated recently for UTI and is on day 2 of her antibiotics otherwise no change her medications no other acute complaints - Physicial Exam PE: 04/11/19 01:58 Awake alert no acute distress lungs are clear bilaterally heart is regular without murmurs rubs or gallops abdomen is soft and nontender extremities are warm and well-perfused neurologically she is awake alert and oriented - Medical Decision Making 04/11/19 01:58 63-year-old female history of multiple medical problems here today with hypoglycemic episode after she was treated for a sugar of 400 with insulin. Likely overmedicated due to patient's chronic renal insufficiency differential includes worsening infection as she has recently been treated for UTI. Plan EKG CBC CMP UA. UA shows resolution of her UTI recommended to continue her antibiotics recheck of her blood sugar shows its within normal range here in the ED she is tolerating p.o. was given a sandwich would like to go home and eat dinner discharged home told to follow-up with her primary care doctor Heart Score/ECG Review #1 General ECG Interpretation: Sinus Rhythm, Normal Rate (91), Normal Intervals, No acute ischemic changes Compared to previous ECG there are: Other (left axis)
--- NOTE | 2019-04-11 13:18 | EKG ---
Test Reason : Blood Pressure : / mmHG Vent. Rate : 091 BPM Atrial Rate : 091 BPM P-R Int : 172 ms QRS Dur : 082 ms QT Int : 372 ms P-R-T Axes : 056 001 039 degrees QTc Int : 457 ms NORMAL SINUS RHYTHM POSSIBLE LEFT ATRIAL ENLARGEMENT LEFT VENTRICULAR HYPERTROPHY POSSIBLE INFERIOR INFARCT , AGE UNDETERMINED ABNORMAL ECG WHEN COMPARED WITH ECG OF 02-APR-2019 16:40, NO SIGNIFICANT CHANGE WAS FOUND Confirmed by EMANUEL PIERSON, PATRICIO ([id number]) on 04/11/2019 1:18:12 PM Referred By: Confirmed By:PATRICIO CASTELLANOS MD
== END 2019-04-10 21:21 | disposition home or self-care (01) ==
LOC: JER 17:33
DX: E11.22 Type 2 diabetes mellitus with diabetic chronic kidney disease (principal); N18.9 Chronic kidney disease, unspecified; Z79.4 Long term (current) use of insulin; E16.2 Hypoglycemia, unspecified; D64.9 Anemia, unspecified; F32.9 Major depressive disorder, single episode, unspecified; E78.00 Pure hypercholesterolemia, unspecified; I10 Essential (primary) hypertension; Z86.73 Personal history of transient ischemic attack (TIA), and cerebral infarction without residual deficits; K59.00 Constipation, unspecified; N39.0 Urinary tract infection, site not specified
CPT/HCPCS: 36415; 80053; 81003; 82010; 82962; 85025; 87086; 93005; 93010; 99284-25

== ENCOUNTER 2019-05-30 16:24 | Inpatient (IN) | payer MEDICARE, OTHER ==
--- NOTE | 2019-05-30 17:59 | PDOC ---
History of Present Illness - General Chief Complaint: Blood Sugar Problem Stated Complaint: HYPERGLYCEMIA Time Seen by Provider: 05/30/19 17:59 History Source: Patient Exam Limitations: No Limitations - History of Present Illness Initial Comments: 63 year old female with PMH HTN, DM, COPD presented to ED for generalized weakness x3-4 days associated with productive white cough and dysuria. Pt denied chest pain, shortness of breath, nausea, vomiting, diarrhea, abdominal pain. ROS General: denied fever, chills, generalized weakness. HEENT: denied sore throat, rhinorrhea, ear pain. Cardiovascular: denied chest pain, palpitations, syncope, diaphoresis. Respiratory: admitted to cough, sputum production. denied shortness of breath, hemoptysis. Gastrointestinal: denied abdominal pain, nausea, vomiting, diarrhea, constipation, blood in stool. Genitourinary: admitted to dysuria. denied hematuria, urinary incontinence, flank pain. Back: denied back pain. Musculoskeletal: denied joint pain, muscle pain, joint swelling. Neurological: denied headache, dizziness, numbness, tingling, weakness. Integumentary: denied rash, laceration, abrasion. Hematologic/Lymphatic: denied bruising or bleeding. PE Constitutional: Well-nourished, Well-developed, appearing stated age. HEENT: head is normocephalic, atraumatic. EOMI. PERRLA. Neck: supple. Full ROM. Cardiovascular: regular heart rhythm. no murmurs. no pericardial friction rub. Respiratory: clear to auscultation bilaterally. no crackles, rhonchi or wheezing. no stridor. Gastrointestinal: soft, flat. tender to palpation normal bowel sounds. no rebound, guarding, masses. Extremities: peripheral pulses intact. no lower extremity edema. Neurological: CN 2-12 grossly intact. moves all four extremities. Psych: awake, alert, oriented x3. follows commands. answers questions appropriately. Past History - Past Medical History Allergies/Adverse Reactions: Allergies Allergy/AdvReac Type Severity Reaction Status Date / Time No Known Allergies Allergy Verified 05/30/19 17:04 Home Medications: Ambulatory Orders Aspirin [ASA -] 81 mg PO DAILY tab.chew 06/20/18 Calcium Carbonate [Calcium] 0 mg PO DAILY 02/28/19 Insulin Glargine,Hum.rec.camelialog [Anshul Chun] 35 unit SQ DAILY 02/28/19 Insulin Lispro [Admelog Solostar] 0 unit SQ PRN PRN 02/28/19 Losartan/Hydrochlorothiazide [Losartan-Hctz 100-12.5 mg Tab] 1 each PO DAILY 11/11 Mirabegron [Myrbetriq] 25 mg PO DAILY 02/28/19 Acetaminophen [Tylenol .Regular Strength -] 650 mg PO Q4H PRN tablet 04/06/19 Nitrofurantoin Monohyd/M-Cryst [Macrobid -] 100 mg PO BID 7 Days #14 capsule 06/13 - Immunization History TDAP Vaccination: Yes Immunization Up to Date: No - Psycho Social/Smoking Cessation Hx Smoking History: Never smoked Have you smoked in the past 12 months: No Hx Alcohol Use: No Drug/Substance Use Hx: No Substance Use Type: None Hx Substance Use Treatment: No *Physical Exam - Vital Signs Last Vital Signs Temp Pulse Resp BP Pulse Ox 98.6 F 94 H 18 125/90 97 05/30/19 17:04 05/30/19 17:04 05/30/19 17:04 05/30/19 17:04 05/30/19 17:04 ED Treatment Course - LABORATORY CBC & Chemistry Diagram: 05/30/19 18:21 05/30/19 18:21 - ADDITIONAL ORDERS Additional order review: Laboratory Results 05/30/19 17:46 POC Glucometer 403 05/30/19 17:46 POC Glucometer 403 Medical Decision Making - Medical Decision Making 63 year old female with above PMH presented to ED for generalized weakness associated with productive white cough and dysuria. Initial Vital Signs Temp Pulse Resp BP Pulse Ox 98.6 F 94 H 18 125/90 97 05/30/19 17:04 05/30/19 17:04 05/30/19 17:04 05/30/19 17:04 05/30/19 17:04 Afebrile. Borderline tachycardia. No tachypnea. No hypotension. No hypoxia on room air. EKG performed at 2117: rate 85, regular rhythm, normal axis, normal intervals, QTc 423, no acute ST changes. CXR my view: no acute infiltrate. no cardiomegaly. sharp costophrenic angles. -Pending official report. Laboratory Last Values WBC 5.2 K/mm3 (4.0-10.0) 05/30/19 18:21 RBC 4.56 M/mm3 (3.60-5.2) 05/30/19 18:21 Hgb 13.3 GM/dL (10.7-15.3) 05/30/19 18:21 Hct 40.8 % (32.4-45.2) 05/30/19 18:21 MCV 89.5 fl (80-96) 05/30/19 18:21 MCH 29.2 pg (25.7-33.7) 05/30/19 18:21 MCHC 32.6 g/dl (32.0-36.0) 05/30/19 18:21 RDW 15.7 % (11.6-15.6) H 05/30/19 18:21 Plt Count 196 K/MM3 (134-434) 05/30/19 18:21 MPV 10.1 fl (7.5-11.1) 05/30/19 18:21 Absolute Neuts (auto) 3.2 K/mm3 (1.5-8.0) 05/30/19 18:21 Neutrophils % 60.8 % (42.8-82.8) D 05/30/19 18:21 Lymphocytes % 28.0 % (8-40) D 05/30/19 18:21 Monocytes % 9.8 % (3.8-10.2) D 05/30/19 18:21 Eosinophils % 1.0 % (0-4.5) D 05/30/19 18:21 Basophils % 0.4 % (0-2.0) 05/30/19 18:21 Nucleated RBC % 0 % (0-0) 05/30/19 18:21 VBG pH 7.32 (7.31-7.41) 05/30/19 18:21 POC VBG pCO2 60.5 mmHg (38-52) H 05/30/19 18:21 POC VBG pO2 < 49 mmHg (28-48) H 05/30/19 18:21 VBG HCO3 30.1 mmol/L (23-29) H 05/30/19 18:21 VBG O2 Sat (Martha) 39.0 % (70-80) L 05/30/19 18:21 VBG Base Excess 2.8 meq/l (-2-2) H 05/30/19 18:21 Sodium 140 mmol/L (136-145) 05/30/19 18:21 Potassium 4.7 mmol/L (3.5-5.1) 05/30/19 18:21 Chloride 105 mmol/L (98-107) 05/30/19 18:21 Carbon Dioxide 30 mmol/L (21-32) 05/30/19 18:21 Anion Gap 5 MMOL/L (8-16) L 05/30/19 18:21 BUN 20.6 mg/dL (7-18) H 05/30/19 18:21 Creatinine 1.1 mg/dL (0.55-1.3) 05/30/19 18:21 Est GFR (CKD-EPI)AfAm 61.01 05/30/19 18:21 Est GFR (CKD-EPI)NonAf 52.64 05/30/19 18:21 POC Glucometer 403 UNITS (80-120) 05/30/19 17:46 Random Glucose 436 mg/dL (74-106) H* 05/30/19 18:21 Lactic Acid 1.5 mmol/L (0.4-2.0) 05/30/19 18:14 Calcium 10.5 mg/dL (8.5-10.1) H 05/30/19 18:21 Total Bilirubin 0.2 mg/dL (0.2-1) 05/30/19 18:21 AST 14 U/L (15-37) L 05/30/19 18:21 ALT 23 U/L (13-61) 05/30/19 18:21 Alkaline Phosphatase 118 U/L (45-117) H 05/30/19 18:21 Troponin I < 0.02 ng/ml (0.00-0.05) 05/30/19 18:21 Total Protein 8.7 g/dl (6.4-8.2) H 05/30/19 18:21 Albumin 3.6 g/dl (3.4-5.0) 05/30/19 18:21 Urine Color Yellow 05/30/19 18:14 Urine Appearance Cloudy 05/30/19 18:14 Urine pH 5.0 (5.0-8.0) 05/30/19 18:14 Ur Specific [place] 1.022 (1.010-1.035) 05/30/19 18:14 Urine Protein Negative (NEGATIVE) 05/30/19 18:14 Urine Glucose (UA) 3+ (NEGATIVE) H 05/30/19 18:14 Urine Ketones Negative (NEGATIVE) 05/30/19 18:14 Urine Blood Negative (NEGATIVE) 05/30/19 18:14 Urine Nitrite Negative (NEGATIVE) 05/30/19 18:14 Urine Bilirubin Negative (NEGATIVE) 05/30/19 18:14 Urine Urobilinogen 0.2 mg/dL (0.2-1.0) 05/30/19 18:14 Ur Leukocyte Esterase 1+ (NEGATIVE) H 05/30/19 18:14 Urine WBC (Auto) 139 /hpf (0-5) 05/30/19 18:14 Urine RBC (Auto) 2 /hpf (0-4) 05/30/19 18:14 Urine Casts (Auto) 1 /lpf (0-8) 05/30/19 18:14 U Epithel Cells (Auto) 1.5 /HPF (0-5/HPF) 05/30/19 18:14 Urine Bacteria (Auto) 446.6 /hpf (NEGATIVE) 05/30/19 18:14 No leukocytosis. No anemia. CO2 retention without acidosis - hx of COPD. No anion gap. No electrolyte abnormalities. No ALEX. UA positive for UTI. Negative for urine ketones. Do not suspect DKA, no acidosis, no ketonuria, no anion gap. Hyperglycemia being treated with IV fluid hydration. 05/30/19 21:35 CT report: Name: BAKARI ORTIZ DEPARTMENT OF RADIOLOGY Phys: Cee Dominguez RESIDENT : 1955 Age: 63 Sex: F [facility] Acct: [id number] Loc: [address] Exam Date: 05/30/19 Status: [facility] [place] [address] Unit Number: [id number] EXAM#: TYPE/EXAM: RESULT: [id number] CT/ABDOMEN PELVIS CT WITH CONTR Abdomen and pelvis CT with contrast Clinical information: left lower quadrant tenderness, dysuria Multiplanar imaging was performed following the intravenous administration of nonionic contrast. Enteric contrast was not administered. In comparison to prior CT exams of 04/05/2019 and 05/19/2018 interval development of concentric diffuse urinary bladder wall thickening is noted suggestive of acute cystitis. No discrete urinary tract calculus is noted on contrast- enhanced imaging. There is no hydronephrosis. A possible small left renal upper pole mass lesion described on the CT exam of 04/05/2019 cannot be definitely appreciated on the current study. As suggested in the 04/05/2019 report correlation with contrast-enhanced MRI is suggested. On the current and prior exam there appears to be mild dilatation of the main pancreatic duct with a 0.3 cm diameter. No gross pancreatic soft tissue mass lesion is identified. The peripancreatic fat planes appear intact. There is possible diffuse fatty infiltration of the liver. If clinically indicated correlate with sonography. The spleen, gallbladder, adrenal glands and right kidney demonstrate no discrete abnormality. Incidental note is again made of a simple right renal cortical cyst laterally. There is no aortic aneurysm. No definite lymphadenopathy is noted on the basis of size criteria. No evidence of pneumoperitoneum, abscess, free intraperitoneal fluid or bowel obstruction. Status post hysterectomy as on prior studies. There is no obvious CT evidence of acute appendicitis or diverticulitis allowing for a relative paucity of intra -abdominal fat and contiguous unopacified bowel loops. No gross noncontrast small bowel pathology is identified. Moderate colonic fecal retention. Note is again made of a stable partially calcified 3 x 1.3 cm subcutaneous focus within the left buttock medially possibly on a posttraumatic or postinflammatory basis. Correlate clinically. Impression: In comparison to prior CT studies interval development of concentric diffuse urinary bladder wall thickening is noted suggestive of acute cystitis. A possible small left renal upper pole mass lesion described on a CT study of 04/05/2019 cannot be definitely appreciated on the current exam. As suggested in the prior CT report correlation with contrast-enhanced MRI is suggested. There is possible interval development of mild dilatation of the main pancreatic duct. MRI/MRCP evaluation is suggested in this regard. Status post hysterectomy. Stable partially calcified 3 x 1.3 cm left buttock subcutaneous soft tissue focus. Reported By: Trace Lopez MD 11/1105/30/19 21:52 Past urine cultures grew ESBL producing organism. Pt informed of results and need to be admitted for IV antibiotics, pt reported she agreed with plan for care. Pending admission. Medications ordered: Meropenem 1g IV once Labs ordered: blood cultures 05/30/19 22:20 POC glucose 255. Discharge - Discharge Information Problems reviewed: Yes Clinical Impression/Diagnosis: UTI (urinary tract infection), ESBL E. coli carrier Condition: Stable - Admission Yes - Follow up/Referral Referrals: Darion Morales [Primary Care Provider] - - Patient Discharge Instructions Patient Printed Discharge Instructions: DI for Urinary Tract Infection (UTI), DI for Hyperglycemia -- Adult - Post Discharge Activity
[2019-05-30] MEDS ORDERED: SODIUM CHLORIDE 1,000 ML IV STA (18:11)
[2019-05-30] MEDS ORDERED: ACETAMINOPHEN 1000 MG/100 ML VIAL (NON FORMULARY) IVPB ONE (18:11)
[2019-05-30] MEDS ORDERED: ACETAMINOPHEN INJECTION 100 ML IVPB ONE (18:28)
[2019-05-30 18:35] LABS: VENOUS PC02 60.5 mmHg (38-52); VENOUS PH 7.32 (7.31-7.41)
[2019-05-30 18:37] LABS: VENOUS PO2 < 49 mmHg (28-48)
[2019-05-30 19:00] LABS: BASO % 0.4 % (0-2.0); HEMATOCRIT 40.8 % (32.4-45.2); HEMOGLOBIN 13.3 GM/dL (10.7-15.3); MCH 29.2 pg (25.7-33.7); MCHC 32.6 g/dl (32.0-36.0); MEAN CELL VOLUME 89.5 fl (80-96); MEAN PLT VOLUME 10.1 fl (7.5-11.1); MONO % 9.8 % (3.8-10.2); NEUT % 60.8 % (42.8-82.8); PLATELET COUNT 196 K/MM3 (134-434); RBC 4.56 M/mm3 (3.60-5.2); RDW 15.7 % (11.6-15.6); WHITE BLOOD COUNT 5.2 K/mm3 (4.0-10.0)
[2019-05-30 19:00] LABS: EPI CELLS 1.5 /HPF (0-5/HPF); HYALINE CASTS 1 /lpf (0-8); URINE APPEARANCE CLOUDY; URINE BACTERIA 446.6 /hpf (NEGATIVE); URINE BILIRUBIN NEGATIVE (NEGATIVE); URINE COLOR YELLOW; URINE GLUCOSE (UA) 3+ (NEGATIVE); URINE KETONE NEGATIVE (NEGATIVE); URINE LEUK ESTERASE 1+ (NEGATIVE); URINE NITRITE NEGATIVE (NEGATIVE); URINE PROTEIN NEGATIVE (NEGATIVE); URINE RBC 2 /hpf (0-4); URINE UROBILINOGEN 0.2 mg/dL (0.2-1.0); URINE WBC 139 /hpf (0-5)
[2019-05-30 19:35] LABS: ALBUMIN 3.6 g/dl (3.4-5.0); ALK PHOS 118 U/L (45-117); ANION GAP 5 MMOL/L (8-16); BILIRUBIN,TOTAL 0.2 mg/dL (0.2-1); BLOOD UREA NITROGEN 20.6 mg/dL (7-18); CALCIUM 10.5 mg/dL (8.5-10.1); CHLORIDE 105 mmol/L (98-107); CO2 30 mmol/L (21-32); CREATININE 1.1 mg/dL (0.55-1.3); POTASSIUM 4.7 mmol/L (3.5-5.1); SGOT/AST 14 U/L (15-37); SGPT/ALT 23 U/L (13-61); SODIUM 140 mmol/L (136-145); TOT PROT 8.7 g/dl (6.4-8.2)
[2019-05-30 19:40] LABS: GLUCOSE,RANDOM 436 mg/dL (74-106)
--- NOTE | 2019-05-30 19:51 | PDOC ---
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
[2019-05-30] MEDS ORDERED: MEROPENEM 1 GM in DEXTROSE 5%-WATER 100 ML IVPB ONE (21:45)
[2019-05-30] MEDS ORDERED: MEROPENEM 1 GM VIAL (RESTRICTED TO ID) IVPB ONE (22:02)
[2019-05-30] MEDS ORDERED: ACETAMINOPHEN 325 MG TABLET (FP) PO PRN ×2 (22:52→23:16)
--- NOTE | 2019-05-30 23:02 | HP ---
Admitting History and Physical - Primary Care Physician PCP: Dr. Limon - Admission Chief Complaint: High blood sugar History of Present Illness: 63 year old female with PMH HTN, DM, COPD presented to ED for generalized weakness x3-4 days associated with productive white cough and dysuria. Patient denied chest pain, shortness of breath, nausea, vomiting, diarrhea, abdominal pain. 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) Endocrine: Yes: Diabetes Mellitus - Past Surgical History Past Surgical History: Yes: , Hysterectomy, Tubal Ligation - Smoking History Smoking history: Never smoked Have you smoked in the past 12 months: No - Alcohol/Substance Use Hx Alcohol Use: No History of Substance Use: reports: None - Social History ADL: Family Assistance Occupation: retired History of Recent Travel: No Home Medications - Allergies Allergies/Adverse Reactions: Allergies Allergy/AdvReac Type Severity Reaction Status Date / Time No Known Allergies Allergy Verified 05/30/19 17:04 - Home Medications Home Medications: Ambulatory Orders Aspirin [ASA -] 81 mg PO DAILY tab.chew 06/20/18 Calcium Carbonate [Calcium] 0 mg PO DAILY 02/28/19 Insulin Glargine,Hum.rec.anlog [Toujeo Solostar] 35 unit SQ DAILY 02/28/19 Insulin Lispro [Admelog Solostar] 0 unit SQ PRN PRN 02/28/19 Losartan/Hydrochlorothiazide [Losartan-Hctz 100-12.5 mg Tab] 1 each PO DAILY 11/11 Mirabegron [Myrbetriq] 25 mg PO DAILY 02/28/19 Acetaminophen [Tylenol .Regular Strength -] 650 mg PO Q4H PRN tablet 04/06/19 Nitrofurantoin Monohyd/M-Cryst [Macrobid -] 100 mg PO BID 7 Days #14 capsule 06/13 Family Medical History Family History: Denies Review of Systems - Review of Systems Constitutional: reports: Weakness Eyes: reports: No Symptoms HENT: reports: No Symptoms, Ocular Prosthesis Neck: reports: No Symptoms Cardiovascular: reports: No Symptoms Respiratory: reports: Cough Gastrointestinal: reports: No Symptoms Genitourinary: reports: Burning, Dysuria Musculoskeletal: reports: No Symptoms Integumentary: reports: No Symptoms Neurological: reports: No Symptoms Endocrine: reports: No Symptoms Hematology/Lymphatic: reports: No Symptoms Psychiatric: reports: No Symptoms Physical Examination Vital Signs: Vital Signs Temperature 98.6 F 05/30/19 17:04 Pulse Rate 94 H 05/30/19 17:04 Respiratory Rate 18 05/30/19 17:04 Blood Pressure 125/90 05/30/19 17:04 O2 Sat by Pulse Oximetry (%) 97 05/30/19 17:04 Constitutional: Yes: No Distress, Calm Eyes: Yes: Conjunctiva Clear, EOM Intact HENT: Yes: Atraumatic, Normocephalic Neck: Yes: Supple, Trachea Midline Cardiovascular: Yes: Regular Rate and Rhythm Respiratory: Yes: Regular, CTA Bilaterally Gastrointestinal: Yes: Normal Bowel Sounds, Soft Renal/: Yes: CVA Tenderness - Left, CVA Tenderness - Right Musculoskeletal: Yes: WNL Extremities: Yes: WNL Edema: No Peripheral Pulses WNL: Yes Neurological: Yes: Alert, Oriented Labs: CBC, BMP 05/30/19 18:21 05/30/19 18:21 Imaging - Results Chest X-ray: Report Reviewed (CXR: no acute infiltrate.) Cat Scan: Report Reviewed (- CT ABD: urinary bladder thickening suggestive of acute cystitis) EKG: Report Reviewed (-EKG: rate 85, regular rhythm, no acute ST changes.) Problem List - Problems (1) UTI (urinary tract infection) Code(s): N39.0 - URINARY TRACT INFECTION, SITE NOT SPECIFIED Qualifiers: (2) ESBL E. coli carrier Code(s): Z22.39 - CARRIER OF OTHER SPECIFIED BACTERIAL DISEASES (3) Hyperglycemia Code(s): R73.9 - HYPERGLYCEMIA, UNSPECIFIED (4) Hyperglycemia due to type 2 diabetes mellitus Code(s): E11.65 - TYPE 2 DIABETES MELLITUS WITH HYPERGLYCEMIA (5) Overactive bladder Code(s): N32.81 - OVERACTIVE BLADDER (6) COPD (chronic obstructive pulmonary disease) Code(s): J44.9 - CHRONIC OBSTRUCTIVE PULMONARY DISEASE, UNSPECIFIED (7) Constipation Code(s): K59.00 - CONSTIPATION, UNSPECIFIED (8) HTN (hypertension) Code(s): I10 - ESSENTIAL (PRIMARY) HYPERTENSION Assessment/Plan 63 year old female with PMH of DMII, CKD, diabetic neuropathy, anemia, HTN, prior CVA w/ residual L sided weakness arrived to ED due to generalized weakness , cough, and urinary symptoms, Member has h/o of ( ucx: ESBL, E-coli). # Complicated UTI - wbc: 5.2, lactic acid: 1.5 - UA positive - in ED given Ofirmve x1, meropenem 1g, 1L NS - CT ABD: urinary bladder thickening suggestive of acute cystitis - follow up UCX, BCX - continue with IV fluids x 24 hours - continue with meropenem 1 g q 8 hours - follow up ID in Am - Tylenol q 4 hours prn - follow up bmp, cbc in AM # Overactive bladder - continue with myrbetriq 25 mg daily # DM #hyperglycemia - random glucose: 436 - POC glucometer: 403 ---> 255 - IV fluids - monitor FSBS TID AC - coverage with novolog sliding scale TID AC - Toujeo solostar 35 units in Am - follow up hgA1c # HTN -Losartan-Hctz 100-12.5 mg Tab 1 each PO DAILY #Constipation - Polyethylene Glycol 3350 17 gm PO daily #COPD ABG: CO2 retention without acidosis -nebs PRN VTE: Heparin SQ FEN: IV fluids x 24hrs, JH/NCS, monitor lytes Dispo: Med-Surg Visit type - Emergency Visit Emergency Visit: Yes ED Registration Date: 05/30/19 Care time: The patient presented to the Emergency Department on the above date and was hospitalized for further evaluation of their emergent condition. - New Patient This patient is new to me today: Yes Date on this admission: 05/30/19 - Critical Care Critical Care patient: No
[2019-05-30] MEDS ORDERED: ALBUTEROL SO4 0.083% IH SOL 2.5 MG/3 ML VIAL.NEB. NEB PRN (23:19)
[2019-05-31] MEDS: SODIUM CHLORIDE 1,000 ML IV SCH ×2 (00:50→21:21)
[2019-05-31] MEDS ORDERED: MEROPENEM 1 GM VIAL (RESTRICTED TO ID) IVPB ONE ×2 (01:36→09:47)
[2019-05-31] MEDS: MEROPENEM 1 GM in DEXTROSE 5%-WATER 100 ML IVPB SCH ×4 (01:58→20:57)
[2019-05-31] MEDS ORDERED: ALBUTEROL SO4 0.083% IH SOL 2.5 MG/3 ML VIAL.NEB. NEB PRN (04:22)
[2019-05-31] MEDS: ERTAPENEM SODIUM 1 GM in SODIUM CHLORIDE 50 ML IVPB SCH (05:10)
[2019-05-31] MEDS ORDERED: INSULIN (LEVEMIR) 100 UNITS/ML UNITS SQ ONE (06:25)
[2019-05-31 06:28] LABS: HEMATOCRIT 34.5 % (32.4-45.2); HEMOGLOBIN 11.5 GM/dL (10.7-15.3); MCH 29.3 pg (25.7-33.7); MCHC 33.4 g/dl (32.0-36.0); MEAN CELL VOLUME 87.8 fl (80-96); MEAN PLT VOLUME 9.8 fl (7.5-11.1); PLATELET COUNT 166 K/MM3 (134-434); RBC 3.93 M/mm3 (3.60-5.2); RDW 15.4 % (11.6-15.6); WHITE BLOOD COUNT 5.1 K/mm3 (4.0-10.0)
[2019-05-31 06:52] LABS: BLOOD UREA NITROGEN 20.4 mg/dL (7-18); CALCIUM 8.7 mg/dL (8.5-10.1); CREATININE 1.2 mg/dL (0.55-1.3); POTASSIUM 4.4 mmol/L (3.5-5.1)
[2019-05-31] MEDS ORDERED: INSULIN (LEVEMIR) 100 UNITS/ML UNITS SQ SCH ×2 (07:00→12:16)
[2019-05-31] MEDS ORDERED: Insulin (LOG) Aspart 100 UNITS/ML VIAL SQ ONE (07:38)
[2019-05-31] MEDS: INSULIN SLIDING SCALE (NOVOLOG) 1 VIAL SQ SCH ×4 (07:55→21:41)
[2019-05-31] MEDS: LOSARTAN POTASSIUM 50 MG TABLET (FP) PO SCH (09:45)
[2019-05-31] MEDS: POLYETHYLENE GLYCOL 3350 119 GM BTL PO SCH (09:45)
[2019-05-31] MEDS: HEPARIN NA (PORCINE) 5,000 UNITS/ML 1ML VIAL SQ SCH ×2 (09:45→21:42)
[2019-05-31] MEDS ORDERED: HYDROCHLOROTHIAZIDE 12.5 MG CAPSULE (FP) PO SCH (10:00)
[2019-05-31] MEDS ORDERED: PATIENT'S OWN MEDICATION (NON-FORMULARY) (Losartan/Hydrochlorothiazide [Losartan-Hctz 100- PO SCH (10:00)
[2019-05-31] MEDS ORDERED: PATIENT'S OWN MEDICATION (NON-FORMULARY) (Mirabegron [Myrbetriq] 25 MG) PO SCH (10:00)
--- NOTE | 2019-05-31 10:42 | CON.ID ---
Consult Consult Specialty:: infectious disease Referred by:: dr dyson Reason for Consultation:: uti - History of Present Illness Chief Complaint: dysuria for several days History of Present Illness: generalized weakness, constipation no fevers or chills no nausea or vomiting foung to haved elevated blood sugar of [address] scan with evidence of thickened bladder wall c/w cystitis prior history of ecoli esbl uti and MRSA skin infection - History Source History Provided By: Patient Limitations to Obtaining History: Language Barrier (entry level account representative phone used) - Past Medical History [employer]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) Cardio/Vascular: Yes: HTN, Hyperlipdemia Gastrointestinal: Yes: Constipation, GERD Renal/: Yes: Renal Inusuff Musculoskeletal: Yes: 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) Endocrine: Yes: Diabetes Mellitus - Past Surgical History Past Surgical History: Yes: , Hysterectomy, Tubal Ligation - Alcohol/Substance Use Hx Alcohol Use: No History of Substance Use: reports: None - Smoking History Smoking history: Never smoked Have you smoked in the past 12 months: No - Social History Usual Living Arrangement: With Child ADL: Family Assistance Occupation: retired Place of : Other ([employer]) History of Recent Travel: No Home Medications - Allergies Allergies/Adverse Reactions: Allergies Allergy/AdvReac Type Severity Reaction Status Date / Time No Known Allergies Allergy Verified 05/30/19 17:04 - Home Medications Home Medications: Ambulatory Orders Aspirin [ASA -] 81 mg PO DAILY tab.chew 06/20/18 Calcium Carbonate [Calcium] 0 mg PO DAILY 02/28/19 Insulin Glargine,Hum.rec.anlog [Toujeo Solostar] 35 unit SQ DAILY 02/28/19 Insulin Lispro [Admelog Solostar] 0 unit SQ PRN PRN 02/28/19 Losartan/Hydrochlorothiazide [Losartan-Hctz 100-12.5 mg Tab] 1 each PO DAILY 11/11 Mirabegron [Myrbetriq] 25 mg PO DAILY 02/28/19 Acetaminophen [Tylenol .Regular Strength -] 650 mg PO Q4H PRN tablet 04/06/19 Nitrofurantoin Monohyd/M-Cryst [Macrobid -] 100 mg PO BID 7 Days #14 capsule 06/13 Family Medical History Family History: Unable to Obtain Review of Systems - Review of Systems Constitutional: reports: Lethargy, Weakness. denies: Chills, Fever Eyes: reports: No Symptoms HENT: reports: No Symptoms Neck: reports: No Symptoms Cardiovascular: reports: No Symptoms Respiratory: reports: No Symptoms Gastrointestinal: reports: Constipation Genitourinary: reports: Dysuria Musculoskeletal: reports: No Symptoms Integumentary: reports: No Symptoms Physical Exam Vital Signs: Vital Signs Temperature 98 F 05/31/19 07:45 Pulse Rate 95 H 05/31/19 07:45 Respiratory Rate 18 05/31/19 07:45 Blood Pressure 116/71 05/31/19 07:45 O2 Sat by Pulse Oximetry (%) 96 05/31/19 07:45 Constitutional: Yes: Well Nourished, No Distress, Calm Eyes: Yes: Conjunctiva Clear, EOM Intact HENT: Yes: Atraumatic, Normocephalic. No: Nasal Congestion, Thrush, Tonsillar Exudate Neck: Yes: Supple. No: Lymphadenopathy Cardiovascular: Yes: Regular Rate and Rhythm Respiratory: Yes: Regular, CTA Bilaterally Gastrointestinal: Yes: Normal Bowel Sounds, Soft. No: Tenderness, Epigastrium, Tenderness, Rebound ...Rectal Exam: Yes: Deferred Renal/: Yes: Other (suprapubic discomfort to palpation). No: CVA Tenderness - Left, CVA Tenderness - Right Extremities: Yes: WNL Edema: No Neurological: Yes: Alert, Oriented Labs: CBC, BMP 05/31/19 05:30 05/31/19 05:30 Laboratory Tests 05/30/19 05/31/19 18:14 05:30 Hemoglobin A1c % 10.9 H Ur Leukocyte Esterase 1+ H Urine WBC (Auto) 139 Imaging - Results Chest X-ray: Report Reviewed, Image Reviewed Cat Scan: Report Reviewed, Image Reviewed Problem List - Problems (1) UTI (urinary tract infection) Code(s): N39.0 - URINARY TRACT INFECTION, SITE NOT SPECIFIED Qualifiers: (2) Poorly controlled diabetes mellitus Code(s): E11.65 - TYPE 2 DIABETES MELLITUS WITH HYPERGLYCEMIA (3) ESBL E. coli carrier Code(s): Z22.39 - CARRIER OF OTHER SPECIFIED BACTERIAL DISEASES Assessment/Plan contact isolation ertapenem f/u cultures needs diabetes education with hgba1c over 10!
--- NOTE | 2019-05-31 11:42 | EKG ---
Test Reason : Blood Pressure : / mmHG Vent. Rate : 085 BPM Atrial Rate : 085 BPM P-R Int : 162 ms QRS Dur : 084 ms QT Int : 356 ms P-R-T Axes : 061 021 059 degrees QTc Int : 423 ms NORMAL SINUS RHYTHM CANNOT RULE OUT ANTERIOR INFARCT , AGE UNDETERMINED ABNORMAL ECG WHEN COMPARED WITH ECG OF 10-APR-2019 21:09, BORDERLINE CRITERIA FOR INFERIOR INFARCT ARE NO LONGER PRESENT Confirmed by YUSEF MCCARTHY MD ([id number]) on 05/31/2019 11:41:44 AM Referred By: Confirmed By:YUSEF MCCARTHY MD
--- NOTE | 2019-05-31 12:15 | PN ---
Progress Note, Physician Chief Complaint: patient seen and examined the ER complaining of suprapubic pain - Current Medication List Current Medications: Active Medications Acetaminophen (Tylenol -) 650 mg PO Q4H PRN PRN Reason: PAIN OR FEVER Albuterol Sulfate (Ventolin 0.083% Nebulizer Soln -) 1 amp NEB RQID PRN PRN Reason: SHORT OF BREATH/WHEEZING Heparin Sodium (Porcine) (Heparin -) 5,000 unit SQ BID [facility] Last Admin: 05/31/19 09:45 Dose: 5,000 unit Hydrochlorothiazide (Hctz -) 12.5 mg PO DAILY [facility] Last Admin: 05/31/19 09:45 Dose: 12.5 mg Sodium Chloride (Normal Saline -) 1,000 mls @ 50 mls/hr IV ASDIR [facility] Stop: 05/31/19 23:15 Last Admin: 05/31/19 00:50 Dose: 50 mls/hr Ertapenem 1 gm/ Sodium (Chloride) 50 mls @ 100 mls/hr IVPB DAILY [facility] Insulin Aspart (Novolog Vial Sliding Scale -) 1 vial SQ TIDAC [facility]; Protocol Last Admin: 05/31/19 07:55 Dose: Not Given Insulin Detemir (Levemir Vial) 35 units SQ AM [facility] Last Admin: 05/31/19 06:35 Dose: 35 units Losartan Potassium (Cozaar -) 100 mg PO DAILY [facility] Last Admin: 05/31/19 09:45 Dose: 100 mg Non-Formulary Medication (Mirabegron [Myrbetriq]) 25 mg PO DAILY [facility] Polyethylene Glycol (Miralax (For Daily Use) -) 17 gm PO DAILY [facility] Last Admin: 05/31/19 09:45 Dose: 17 gm - Objective Vital Signs: Vital Signs Temperature 98 F 05/31/19 07:45 Pulse Rate 95 H 05/31/19 07:45 Respiratory Rate 18 05/31/19 07:45 Blood Pressure 116/71 05/31/19 07:45 O2 Sat by Pulse Oximetry (%) 96 05/31/19 07:45 Constitutional: Yes: Calm Neck: Yes: Trachea Midline Cardiovascular: Yes: Regular Rate and Rhythm, S1, S2 Respiratory: Yes: CTA Bilaterally Gastrointestinal: Yes: Normal Bowel Sounds, Soft Edema: No Neurological: Yes: Alert Labs: CBC, BMP 05/31/19 05:30 05/31/19 05:30 Problem List - Problems (1) UTI (urinary tract infection) Assessment/Plan: iv ertrapenem 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
[2019-05-31] MEDS ORDERED: ERTAPENEM SODIUM 1 GM VIAL ONE (17:10)
[2019-06-01] MEDS: SODIUM CHLORIDE 1,000 ML IV SCH (05:44)
[2019-06-01] MEDS: INSULIN SLIDING SCALE (NOVOLOG) 1 VIAL SQ SCH ×4 (06:09→22:11)
[2019-06-01] MEDS: POLYETHYLENE GLYCOL 3350 119 GM BTL PO SCH (10:00)
[2019-06-01] MEDS: LOSARTAN POTASSIUM 50 MG TABLET (FP) PO SCH (10:00)
[2019-06-01] MEDS: HEPARIN NA (PORCINE) 5,000 UNITS/ML 1ML VIAL SQ SCH ×2 (10:00→22:11)
[2019-06-01] MEDS: ERTAPENEM SODIUM 1 GM in SODIUM CHLORIDE 50 ML IVPB SCH (11:31)
--- NOTE | 2019-06-01 11:33 | PN ---
Progress Note, Physician History of Present Illness: AWAKE IN BED C/O DYSURIA, LLQ ABDOMINAL PAIN AFEBRILE URINE C/S PENDING - Current Medication List Current Medications: Active Medications Acetaminophen (Tylenol -) 650 mg PO Q4H PRN PRN Reason: PAIN OR FEVER Albuterol Sulfate (Ventolin 0.083% Nebulizer Soln -) 1 amp NEB RQID PRN PRN Reason: SHORT OF BREATH/WHEEZING Heparin Sodium (Porcine) (Heparin -) 5,000 unit SQ BID [facility] Last Admin: 06/01/19 10:00 Dose: 5,000 unit Ertapenem 1 gm/ Sodium (Chloride) 50 mls @ 100 mls/hr IVPB DAILY [facility] Last Admin: 05/31/19 05:10 Dose: 100 mls/hr Insulin Aspart (Novolog Vial Sliding Scale -) 1 vial SQ ACHS [facility]; Protocol Last Admin: 06/01/19 06:09 Dose: Not Given Insulin Detemir (Levemir Vial) 40 units SQ AM [facility] Last Admin: 06/01/19 06:46 Dose: 40 units Losartan Potassium (Cozaar -) 100 mg PO DAILY [facility] Last Admin: 06/01/19 10:00 Dose: 100 mg Polyethylene Glycol (Miralax (For Daily Use) -) 17 gm PO DAILY [facility] Last Admin: 06/01/19 10:00 Dose: 17 gm - Objective Vital Signs: Vital Signs Temperature 98.1 F 06/01/19 09:06 Pulse Rate 84 06/01/19 09:06 Respiratory Rate 18 06/01/19 09:06 Blood Pressure 144/84 06/01/19 09:06 O2 Sat by Pulse Oximetry (%) 97 05/31/19 22:00 Constitutional: Yes: No Distress Eyes: Yes: Conjunctiva Clear Cardiovascular: Yes: Regular Rate and Rhythm, S1, S2 Respiratory: Yes: Diminished Gastrointestinal: Yes: Normal Bowel Sounds, Soft, Tenderness, Other (+ LLQ / SUPRAPUBIC ABDOMINAL TENDERNESS) Edema: Yes Labs: CBC, BMP 05/31/19 05:30 05/31/19 05:30 Assessment/Plan UTI HX ESBL UNCONTROLLED DM AWAIT C/S CONTINUE EMPIRIC ERTAPENEM
--- NOTE | 2019-06-01 13:30 | PN ---
Progress Note, Physician Chief Complaint: AWAKE ALERT EVENTS AND NOTES REVIEWED - Current Medication List Current Medications: Active Medications Acetaminophen (Tylenol -) 650 mg PO Q4H PRN PRN Reason: PAIN OR FEVER Albuterol Sulfate (Ventolin 0.083% Nebulizer Soln -) 1 amp NEB RQID PRN PRN Reason: SHORT OF BREATH/WHEEZING Heparin Sodium (Porcine) (Heparin -) 5,000 unit SQ BID [facility] Last Admin: 06/01/19 10:00 Dose: 5,000 unit Ertapenem 1 gm/ Sodium (Chloride) 50 mls @ 100 mls/hr IVPB DAILY [facility] Last Admin: 06/01/19 11:31 Dose: 100 mls/hr Insulin Aspart (Novolog Vial Sliding Scale -) 1 vial SQ ACHS [facility]; Protocol Last Admin: 06/01/19 11:39 Dose: 6 units Insulin Detemir (Levemir Vial) 40 units SQ AM [facility] Last Admin: 06/01/19 06:46 Dose: 40 units Losartan Potassium (Cozaar -) 100 mg PO DAILY [facility] Last Admin: 06/01/19 10:00 Dose: 100 mg Polyethylene Glycol (Miralax (For Daily Use) -) 17 gm PO DAILY [facility] Last Admin: 06/01/19 10:00 Dose: 17 gm - Objective Vital Signs: Vital Signs Temperature 98.1 F 06/01/19 09:06 Pulse Rate 84 06/01/19 09:06 Respiratory Rate 18 06/01/19 09:06 Blood Pressure 144/84 06/01/19 09:06 O2 Sat by Pulse Oximetry (%) 97 05/31/19 22:00 Constitutional: Yes: Mild Distress Cardiovascular: Yes: Regular Rate and Rhythm Respiratory: Yes: WNL Gastrointestinal: Yes: WNL Genitourinary: Yes: Other Edema: No Peripheral Pulses WNL: Yes Integumentary: Yes: WNL Wound/Incision: Yes: Clean/Dry Neurological: Yes: Pre-Existing Deficit Labs: CBC, BMP 05/31/19 05:30 05/31/19 05:30 Problem List - Problems (1) COPD (chronic obstructive pulmonary disease) Code(s): J44.9 - CHRONIC OBSTRUCTIVE PULMONARY DISEASE, UNSPECIFIED (2) ESBL E. coli carrier Code(s): Z22.39 - CARRIER OF OTHER SPECIFIED BACTERIAL DISEASES (3) Overactive bladder Code(s): N32.81 - OVERACTIVE BLADDER (4) Complicated UTI (urinary tract infection) Code(s): N39.0 - URINARY TRACT INFECTION, SITE NOT SPECIFIED (5) Cystitis Code(s): N30.90 - CYSTITIS, UNSPECIFIED WITHOUT HEMATURIA (6) Diabetes mellitus Code(s): E11.9 - TYPE 2 DIABETES MELLITUS WITHOUT COMPLICATIONS (7) Diabetic neuropathy Code(s): E11.40 - TYPE 2 DIABETES MELLITUS WITH DIABETIC NEUROPATHY, UNSP (8) Non compliance with medical treatment Code(s): Z91.19 - PATIENT'S NONCOMPLIANCE W OTH MEDICAL TREATMENT AND REGIMEN (9) Poorly controlled diabetes mellitus Code(s): E11.65 - TYPE 2 DIABETES MELLITUS WITH HYPERGLYCEMIA Assessment/Plan NON-COMPLIANT DM, WITH POOR OUTPATIENT FOLLOW UP WITH ENDOCRINE AND HER PMD DR SERNA. ACUTE CYSTITIS IV ABX PER ID PAIN CONTROL OOB TO CHAIR ENDOCRINE CONSULT/DIETARY F/U HOME HEALTH AID WITH EDUCATION ON OUT PATIENT CARE
--- NOTE | 2019-06-01 22:17 | CONSULT ---
Consult Consult Specialty:: ENDOCRINE Referred by:: DR.MOIZUDDIN YEE Reason for Consultation:: DMT2 - History of Present Illness Chief Complaint: HIGH BLOOD SUGARS ABDOMINAL PAIN History of Present Illness: 63 year old female with PMH DM T2,HTN, COPD presented with abdominal pain, nausea,high blood sugars,frequent urination,dry mouth,poor appetite.she has had cough with productive white cough and dysuria. 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) Endocrine: Yes: Diabetes Mellitus - Past Surgical History Past Surgical History: Yes: , Hysterectomy, Tubal Ligation - Alcohol/Substance Use Hx Alcohol Use: No History of Substance Use: reports: None - Smoking History Smoking history: Never smoked Have you smoked in the past 12 months: No - Social History Usual Living Arrangement: With Child ADL: Family Assistance Occupation: retired History of Recent Travel: No Home Medications - Allergies Allergies/Adverse Reactions: Allergies Allergy/AdvReac Type Severity Reaction Status Date / Time No Known Allergies Allergy Verified 05/30/19 17:04 - Home Medications Home Medications: Ambulatory Orders Aspirin [ASA -] 81 mg PO DAILY tab.chew 06/20/18 Calcium Carbonate [Calcium] 1 tab PO DAILY 02/28/19 Insulin Glargine,Hum.rec.anlog [Toujeo Solostar] 35 unit SQ DAILY 02/28/19 Insulin Lispro [Admelog Solostar] 0 unit SQ PRN PRN 02/28/19 Losartan/Hydrochlorothiazide [Losartan-Hctz 100-12.5 mg Tab] 1 each PO DAILY 11/11 Oxybutynin Chloride [Oxybutynin Chloride ER] 10 mg PO DAILY 06/01/19 Review of Systems - Review of Systems Constitutional: reports: Lethargy, Weakness Eyes: reports: No Symptoms HENT: reports: No Symptoms Neck: reports: No Symptoms Cardiovascular: reports: Shortness of Breath Respiratory: reports: Exercise Intolerance, SOB on Exertion Gastrointestinal: reports: Bloating, Constipation Genitourinary: reports: Frequency Breasts: reports: No Symptoms Reported Musculoskeletal: reports: Muscle Pain, Muscle Cramps, Muscle Weakness Integumentary: reports: No Symptoms Neurological: reports: Weakness Endocrine: reports: Unexplained Weight Gain Physical Exam Vital Signs: Vital Signs Temperature 98.1 F 06/01/19 19:00 Pulse Rate 89 06/01/19 19:00 Respiratory Rate 18 06/01/19 19:00 Blood Pressure 134/79 06/01/19 19:00 O2 Sat by Pulse Oximetry (%) 97 06/01/19 09:00 Constitutional: Yes: Calm Eyes: Yes: EOM Intact HENT: Yes: Normocephalic Neck: Yes: Trachea Midline Cardiovascular: Yes: Regular Rate and Rhythm Respiratory: Yes: CTA Bilaterally Gastrointestinal: Yes: Normal Bowel Sounds, Tenderness, Epigastrium ...Rectal Exam: Yes: Deferred Renal/: Yes: WNL Musculoskeletal: Yes: Muscle Weakness Extremities: Yes: WNL Edema: Yes Edema: LLE: Trace, RLE: Trace Neurological: Yes: Alert, Oriented Labs: CBC, BMP 05/31/19 05:30 05/31/19 05:30 Problem List - Problems (1) Type 2 diabetes mellitus with other diabetic kidney complication Problems reviewed: Yes Code(s): E11.29 - TYPE 2 DIABETES MELLITUS W OTH DIABETIC KIDNEY COMPLICATION (2) COPD (chronic obstructive pulmonary disease) Code(s): J44.9 - CHRONIC OBSTRUCTIVE PULMONARY DISEASE, UNSPECIFIED (3) Overactive bladder Code(s): N32.81 - OVERACTIVE BLADDER (4) UTI (urinary tract infection) Code(s): N39.0 - URINARY TRACT INFECTION, SITE NOT SPECIFIED Qualifiers: (5) ALEX (acute kidney injury) Code(s): N17.9 - ACUTE KIDNEY FAILURE, UNSPECIFIED (6) Abdominal pain Code(s): R10.9 - UNSPECIFIED ABDOMINAL PAIN (7) Abscesses of both axillae Code(s): L02.411 - CUTANEOUS ABSCESS OF RIGHT AXILLA; L02.412 - CUTANEOUS ABSCESS OF LEFT AXILLA Assessment/Plan Current Active Problems COPD (chronic obstructive pulmonary disease) (Acute) ESBL E. coli carrier (Acute) Overactive bladder (Acute) Type 2 diabetes mellitus with other diabetic kidney complication (Acute) UTI (urinary tract infection) (Acute) Laboratory Results - last 24 hr 06/01/19 06/01/19 06/01/19 06:07 11:37 16:56 POC Glucometer 130 262 149 06/01/19 22:09 POC Glucometer 223 Laboratory Tests 05/31/19 05:30 Hemoglobin A1c % 10.9 H Laboratory Tests 05/31/19 05:30 Sodium 138 Potassium 4.4 Chloride 104 Carbon Dioxide 30 Anion Gap 3 L BUN 20.4 H Creatinine 1.2 Est GFR (CKD-EPI)AfAm 54.92 Est GFR (CKD-EPI)NonAf 47.39 Random Glucose 436 H* plan: bgm qid novolog scale levemir 35 units am diet gi consultation
[2019-06-02] MEDS: INSULIN SLIDING SCALE (NOVOLOG) 1 VIAL SQ SCH ×4 (06:26→21:28)
[2019-06-02] MEDS: INSULIN (LEVEMIR) 100 UNITS/ML UNITS SQ SCH (06:27)
[2019-06-02] MEDS ORDERED: INSULIN (LEVEMIR) 100 UNITS/ML UNITS SQ ONE (06:57)
[2019-06-02] MEDS ORDERED: INSULIN SLIDING SCALE (NOVOLOG) 1 VIAL SQ ONE (06:57)
[2019-06-02] MEDS: ERTAPENEM SODIUM 1 GM in SODIUM CHLORIDE 50 ML IVPB SCH (09:31)
[2019-06-02] MEDS: HEPARIN NA (PORCINE) 5,000 UNITS/ML 1ML VIAL SQ SCH ×2 (09:32→21:28)
[2019-06-02] MEDS: LOSARTAN POTASSIUM 50 MG TABLET (FP) PO SCH (09:32)
[2019-06-02] MEDS: POLYETHYLENE GLYCOL 3350 119 GM BTL PO SCH (09:33)
[2019-06-02 14:29] VITALS: BMI 25.0
--- NOTE | 2019-06-02 17:52 | PN ---
Progress Note, Physician Chief Complaint: AWAKE ALERT FEELING BETTER - Current Medication List Current Medications: Active Medications Acetaminophen (Tylenol -) 650 mg PO Q4H PRN PRN Reason: PAIN OR FEVER Albuterol Sulfate (Ventolin 0.083% Nebulizer Soln -) 1 amp NEB RQID PRN PRN Reason: SHORT OF BREATH/WHEEZING Heparin Sodium (Porcine) (Heparin -) 5,000 unit SQ BID [facility] Last Admin: 06/02/19 09:32 Dose: 5,000 unit Ertapenem 1 gm/ Sodium (Chloride) 50 mls @ 100 mls/hr IVPB DAILY [facility] Last Admin: 06/02/19 09:31 Dose: 100 mls/hr Insulin Aspart (Novolog Vial Sliding Scale -) 1 vial SQ ACHS [facility]; Protocol Last Admin: 06/02/19 17:08 Dose: 2 units Insulin Detemir (Levemir Vial) 35 units SQ AM [facility] Last Admin: 06/02/19 06:27 Dose: 35 units Losartan Potassium (Cozaar -) 100 mg PO DAILY [facility] Last Admin: 06/02/19 09:32 Dose: 100 mg Polyethylene Glycol (Miralax (For Daily Use) -) 17 gm PO DAILY [facility] Last Admin: 06/02/19 09:33 Dose: 17 gm - Objective Vital Signs: Vital Signs Temperature 97.9 F 06/02/19 13:52 Pulse Rate 89 06/02/19 13:52 Respiratory Rate 18 06/02/19 13:52 Blood Pressure 140/76 06/02/19 13:52 O2 Sat by Pulse Oximetry (%) 98 06/02/19 09:00 Constitutional: Yes: Mild Distress Eyes: Yes: WNL HENT: Yes: WNL Neck: Yes: WNL Cardiovascular: Yes: Regular Rate and Rhythm Respiratory: Yes: WNL Gastrointestinal: Yes: WNL Genitourinary: Yes: Other Musculoskeletal: Yes: WNL Extremities: Yes: WNL Integumentary: Yes: WNL ...Motor Strength: WNL Psychiatric: Yes: Other Labs: CBC, BMP 05/31/19 05:30 05/31/19 05:30 Problem List - Problems (1) COPD (chronic obstructive pulmonary disease) Code(s): J44.9 - CHRONIC OBSTRUCTIVE PULMONARY DISEASE, UNSPECIFIED (2) ESBL E. coli carrier Code(s): Z22.39 - CARRIER OF OTHER SPECIFIED BACTERIAL DISEASES (3) Overactive bladder Code(s): N32.81 - OVERACTIVE BLADDER (4) Complicated UTI (urinary tract infection) Code(s): N39.0 - URINARY TRACT INFECTION, SITE NOT SPECIFIED (5) Cystitis Code(s): N30.90 - CYSTITIS, UNSPECIFIED WITHOUT HEMATURIA (6) Diabetes mellitus Code(s): E11.9 - TYPE 2 DIABETES MELLITUS WITHOUT COMPLICATIONS (7) Diabetic neuropathy Code(s): E11.40 - TYPE 2 DIABETES MELLITUS WITH DIABETIC NEUROPATHY, UNSP (8) Non compliance with medical treatment Code(s): Z91.19 - PATIENT'S NONCOMPLIANCE W OTH MEDICAL TREATMENT AND REGIMEN (9) Poorly controlled diabetes mellitus Code(s): E11.65 - TYPE 2 DIABETES MELLITUS WITH HYPERGLYCEMIA Assessment/Plan NON-COMPLIANT DM, WITH POOR OUTPATIENT FOLLOW UP WITH ENDOCRINE AND HER PMD DR SERNA. ACUTE CYSTITIS IV ABX PER ID PAIN CONTROL OOB TO CHAIR ENDOCRINE CONSULT/DIETARY F/U HOME HEALTH AID WITH EDUCATION ON OUT PATIENT CARE
[2019-06-03] MEDS: INSULIN (LEVEMIR) 100 UNITS/ML UNITS SQ SCH (06:33)
[2019-06-03] MEDS: INSULIN SLIDING SCALE (NOVOLOG) 1 VIAL SQ SCH ×2 (06:33→11:22)
[2019-06-03] MEDS ORDERED: PT OWN MED DRAWER 7, Y5N ONE (11:12)
[2019-06-03] MEDS: HEPARIN NA (PORCINE) 5,000 UNITS/ML 1ML VIAL SQ SCH (11:13)
[2019-06-03] MEDS: LOSARTAN POTASSIUM 50 MG TABLET (FP) PO SCH (11:14)
[2019-06-03] MEDS: ERTAPENEM SODIUM 1 GM in SODIUM CHLORIDE 50 ML IVPB SCH (11:14)
[2019-06-03] MEDS: POLYETHYLENE GLYCOL 3350 119 GM BTL PO SCH (11:15)
--- NOTE | 2019-06-03 13:29 | PN ---
Progress Note (short form) - Note Progress Note: feels well no pelvic pain Vital Signs Period Temp Pulse Resp BP Sys/Haskins Pulse Ox Last 24 Hr 97.8 F-98.9 F 86-94 18-18 127-140/76-92 97-98 cor-rrr llungs clear abd soft,nt, mno supraubic pain ext no edema CBC, BMP 05/31/19 05:30 05/31/19 05:30 Microbiology 05/30/19 22:05 Blood - Peripheral Venous Blood Culture - Preliminary NO GROWTH OBTAINED AFTER 72 HOURS, INCUBATION TO CONTINUE FOR 2 DAYS. 05/30/19 22:05 Blood - Peripheral Venous Blood Culture - Preliminary NO GROWTH OBTAINED AFTER 72 HOURS, INCUBATION TO CONTINUE FOR 2 DAYS. 05/30/19 18:14 Urine - Urine Clean Catch Urine Culture - Final Strep Agalactiae Group B a/p UTI-day #4 antibioitcs poorly controlled DM histry of ecoli esbl uti in the past - contact isolation can switch to keflex for another 10 days d/w dr grigsby Problem List - Problems (1) UTI (urinary tract infection) Code(s): N39.0 - URINARY TRACT INFECTION, SITE NOT SPECIFIED Qualifiers: (2) Poorly controlled diabetes mellitus Code(s): E11.65 - TYPE 2 DIABETES MELLITUS WITH HYPERGLYCEMIA (3) ESBL E. coli carrier Code(s): Z22.39 - CARRIER OF OTHER SPECIFIED BACTERIAL DISEASES
--- NOTE | 2019-06-03 13:39 | DS ---
Physical Examination Vital Signs: Vital Signs Temperature 97.8 F 06/03/19 10:00 Pulse Rate 94 H 06/03/19 10:00 Respiratory Rate 18 06/03/19 10:00 Blood Pressure 127/92 06/03/19 10:00 O2 Sat by Pulse Oximetry (%) 97 06/03/19 09:00 Constitutional: Yes: Calm, Thin Cardiovascular: Yes: Regular Rate and Rhythm, S1, S2 Respiratory: Yes: CTA Bilaterally Gastrointestinal: Yes: Normal Bowel Sounds, Soft Edema: No Labs: CBC, BMP 05/31/19 05:30 05/31/19 05:30 Discharge Summary Problems reviewed: Yes Reason For Visit: UTI/HISTORY OF ESBL E. COLI INFECTION Current Active Problems COPD (chronic obstructive pulmonary disease) (Acute) ESBL E. coli carrier (Acute) Overactive bladder (Acute) Type 2 diabetes mellitus with other diabetic kidney complication (Acute) UTI (urinary tract infection) (Acute) Other Procedures: abd/pelvis CT shows bladder wall thickening acute cysttis Hospital Course: 63 year old female with PMH HTN, DM, COPD presented to ED for generalized weakness x3-4 days associated with productive white cough and dysuria. Patient denied chest pain, shortness of breath, nausea, vomiting, diarrhea, abdominal pain admitted got iv abx change to po keflex Condition: Stable - Instructions Referrals: Darion Morales [Primary Care Provider] - 1 Week - Home Medications Comprehensive Discharge Medication List: Ambulatory Orders Aspirin [ASA -] 81 mg PO DAILY tab.chew 06/20/18 Calcium Carbonate [Calcium] 1 tab PO DAILY 02/28/19 Insulin Glargine,Hum.rec.anlog [Toujeo Solostjennifer] 35 unit SQ DAILY 02/28/19 Insulin Lispro [Admelog Solostar] 0 unit SQ PRN PRN 02/28/19 Losartan/Hydrochlorothiazide [Losartan-Hctz 100-12.5 mg Tab] 1 each PO DAILY 11/11 Oxybutynin Chloride [Oxybutynin Chloride ER] 10 mg PO DAILY 06/01/19 Cephalexin [Keflex] 500 mg PO BID #20 capsule 06/03/19
[2019-06-03 15:05] VITALS: BP 111/72; PULSE 102; TEMP 98
== END 2019-06-03 16:30 | disposition home or self-care (01) | DRG 638 ==
LOC: JER 16:24 → JERBED 21:56 → J4S 05-31 19:51
PROVIDERS: ADMIT Family Medicine; ATTEND Family Medicine
DX: E11.65 Type 2 diabetes mellitus with hyperglycemia (principal); N39.0 Urinary tract infection, site not specified; Z16.12 Extended spectrum beta lactamase (ESBL) resistance; I69.354 Hemiplegia and hemiparesis following cerebral infarction affecting left non-dominant side; E11.40 Type 2 diabetes mellitus with diabetic neuropathy, unspecified; N32.81 Overactive bladder; J44.9 Chronic obstructive pulmonary disease, unspecified; K59.00 Constipation, unspecified; K21.9 Gastro-esophageal reflux disease without esophagitis; B96.20 Unspecified Escherichia coli [E. coli] as the cause of diseases classified elsewhere
CPT/HCPCS: 36415; 71046-TC-FY; 74177-TC; 80048; 80053; 81003; 82803; 82962; 83036; 83605; 84484; 85025; 85027; 87040; 87086; 93005; 93010; 99284-25; J0131; J1644; J7030; Q9967

== ENCOUNTER 2020-08-23 18:24 | Emergency (ER) | payer OTHER ==
[2020-08-23 18:52] VITALS: BP 175/98; PULSE 89; TEMP 98.9; BMI 28.3
[2020-08-23 19:40] LABS: BASO % 0.4 % (0-2.0); EOS % 0.1 % (0-4.5); HEMATOCRIT 37.4 % (32.4-45.2); HEMOGLOBIN 12.4 GM/dL (10.7-15.3); LYMPH % 6.5 % (8-40); MCH 29.9 pg (25.7-33.7); MCHC 33.1 g/dl (32.0-36.0); MEAN CELL VOLUME 90.2 fl (80-96); MEAN PLT VOLUME 10.3 fl (7.5-11.1); MONO % 3.3 % (3.8-10.2); NEUT % 89.7 % (42.8-82.8); PLATELET COUNT 176 K/MM3 (134-434); RBC 4.15 M/mm3 (3.60-5.2); RDW 14.3 % (11.6-15.6); WHITE BLOOD COUNT 8.6 K/mm3 (4.0-10.0)
[2020-08-23 20:00] LABS: CHLORIDE 105 mmol/L (98-107); POTASSIUM 5.3 mmol/L (3.5-5.1); SODIUM 137 mmol/L (136-145)
[2020-08-23 20:02] LABS: CALCIUM 9.3 mg/dL (8.5-10.1)
[2020-08-23 20:03] LABS: ALBUMIN 3.3 g/dl (3.4-5.0); ANION GAP 4 MMOL/L (8-16); BLOOD UREA NITROGEN 14.8 mg/dL (7-18); CO2 29 mmol/L (21-32); GLUCOSE,RANDOM 168 mg/dL (74-106); MAGNESIUM 1.8 mg/dL (1.8-2.4)
[2020-08-23 20:06] LABS: CREATININE 0.8 mg/dL (0.55-1.3); SGOT/AST 42 U/L (15-37); SGPT/ALT 25 U/L (13-61)
[2020-08-23 20:07] LABS: BILIRUBIN,TOTAL 0.4 mg/dL (0.2-1); TOT PROT 7.8 g/dl (6.4-8.2)
[2020-08-23 20:08] LABS: ALK PHOS 83 U/L (45-117)
[2020-08-23 21:23] LABS: URINE APPEARANCE CLOUDY; URINE BILIRUBIN NEGATIVE (NEGATIVE); URINE COLOR YELLOW; URINE GLUCOSE (UA) TRACE (NEGATIVE); URINE KETONE NEGATIVE (NEGATIVE); URINE LEUK ESTERASE TRACE (NEGATIVE); URINE NITRITE NEGATIVE (NEGATIVE); URINE PROTEIN TRACE (NEGATIVE); URINE UROBILINOGEN 0.2 mg/dL (0.2-1.0)
[2020-08-23 22:54] LABS: URINE WBC 25.1 /uL (0-25.8)
[2020-08-23 22:55] LABS: EPI CELLS 15.2 /uL (0-25.1); HYALINE CASTS 0.38 /uL (0-3.1); URINE BACTERIA 14141.1 /uL (0-1359)
== END 2020-08-23 21:44 | disposition home or self-care (01) ==
LOC: SUPCPDRO 18:24 → JER 18:24
DX: E11.649 Type 2 diabetes mellitus with hypoglycemia without coma (principal); R55 Syncope and collapse; Z11.52 Encounter for screening for COVID-19
CPT/HCPCS: 36415; 71046-TC-FY; 80053; 81003; 82550; 82553; 82962; 83735; 84100; 84484; 85025; 87086; 87186; 93005; 93010; 99285-25; C9803; U0003

== ENCOUNTER 2022-12-04 21:37 | Inpatient (IN) | payer OTHER ==
[2022-12-04] MEDS ORDERED: morphine CARPU-JECT 2 MG/1 ML DISP.SYRIN IVPUSH ONE (22:10)
[2022-12-04] MEDS ORDERED: FAMOTIDINE 20 MG/50 ML IVPB 20 MG/50 ML MG IVPB ONE ×2 (22:16→22:30)
[2022-12-04] MEDS ORDERED: PANTOPRAZOLE SODIUM 40 MG VIAL IVPUSH ONE (22:16)
[2022-12-04] MEDS ORDERED: ONDANSETRON 4 MG/2 ML VIAL IVPUSH ONE (22:16)
[2022-12-04] MEDS ORDERED: ACETAMINOPHEN 1000 MG/100 ML BAG IVPB ONE (22:18)
[2022-12-04] MEDS ORDERED: LACTATED RINGERS SOLUTION 1000 ML INFUS.BAG IV ONE (22:26)
[2022-12-04] MEDS ORDERED: ACETAMINOPHEN INJECTION 100 ML IVPB ONE (22:29)
[2022-12-04] MEDS ORDERED: ONDANSETRON 4 MG/2 ML VIAL ONE (22:30)
[2022-12-04] MEDS ORDERED: PANTOPRAZOLE SODIUM 40 MG VIAL ONE (22:30)
[2022-12-04 23:19] LABS: BASO % 0.7 % (0-2.0); EOS % 0.3 % (0-4.5); HEMATOCRIT 42.4 % (32.4-45.2); HEMOGLOBIN 14.1 GM/dL (10.7-15.3); LYMPH % 13.6 % (8-40); MCH 29.1 pg (25.7-33.7); MCHC 33.3 g/dl (32.0-36.0); MEAN CELL VOLUME 87.4 fl (80-96); MEAN PLT VOLUME 9.8 fl (7.5-11.1); MONO % 3.8 % (3.8-10.2); NEUT % 81.6 % (42.8-82.8); PLATELET COUNT 224 10^3/uL (134-434); RBC 4.85 M/mm3 (3.60-5.2); RDW 15.1 % (11.6-15.6)
[2022-12-04 23:25] LABS: INR 0.97 (0.83-1.09); PROTHROMBIN TIME (PATIENT) 11.3 SEC (9.7-13.0)
[2022-12-05 00:02] LABS: POTASSIUM 4.7 mmol/L (3.5-5.1)
[2022-12-05 00:04] LABS: BLOOD UREA NITROGEN 19.1 mg/dL (7-18); CALCIUM 10.3 mg/dL (8.5-10.1)
[2022-12-05 00:05] LABS: ALBUMIN 3.5 g/dl (3.4-5.0)
[2022-12-05 00:07] LABS: CREATININE 1.2 mg/dL (0.55-1.3)
[2022-12-05 00:09] LABS: BILIRUBIN,TOTAL 0.5 mg/dL (0.2-1); TOT PROT 8.2 g/dl (6.4-8.2)
[2022-12-05 02:23] LABS: EPI CELLS 4 /uL (0-25.1); HYALINE CASTS 0 /uL (0-3.1); PH,URINE 5.5 (5.0-8.0); URINE APPEARANCE TURBID; URINE BACTERIA >9,000 /uL (0-1359); URINE BILIRUBIN NEGATIVE (NEGATIVE); URINE COLOR YELLOW; URINE GLUCOSE (UA) 3+ (NEGATIVE); URINE KETONE 1+ (NEGATIVE); URINE LEUK ESTERASE 1+ (NEGATIVE); URINE NITRITE NEGATIVE (NEGATIVE); URINE PROTEIN 4+ (NEGATIVE); URINE UROBILINOGEN 0.2 mg/dL (0.2-1.0); URINE WBC 5060 /uL (0-25.8)
[2022-12-05] MEDS ORDERED: DOCUSATE SODIUM 100 MG CAPSULE (FP) PO PRN (02:55)
[2022-12-05] MEDS ORDERED: CEFTRIAXONE 1,000 MG in DEXTROSE 5%-WATER - 50 ML IVPB ONE (02:56)
[2022-12-05] MEDS ORDERED: CEFTRIAXONE 1 GM/50 ML BAG ONE (04:02)
[2022-12-05] MEDS ORDERED: SODIUM PHOSPHATE/NA BIPHOS 133 ML ENEMA RC ONE (04:20)
[2022-12-05] MEDS ORDERED: ONDANSETRON 4 MG/2 ML VIAL IVPUSH PRN (05:00)
[2022-12-05 05:55] VITALS: BMI 22.3
[2022-12-05] MEDS ORDERED: ACETAMINOPHEN 1000 MG/100 ML BAG IVPB PRN (06:00)
[2022-12-05] MEDS: POLYETHYLENE GLYCOL (HEALTHYLAX) 3350 17 GM PACKET PO SCH ×3 (06:29→23:25)
[2022-12-05] MEDS: INSULIN SLIDING SCALE (NOVOLOG) 1 VIAL SQ SCH ×4 (06:36→23:26)
[2022-12-05 07:47] LABS: BASO % 0.6 % (0-2.0); EOS % 0.3 % (0-4.5); HEMATOCRIT 39.1 % (32.4-45.2); HEMOGLOBIN 12.8 GM/dL (10.7-15.3); LYMPH % 30.1 % (8-40); MCH 29.1 pg (25.7-33.7); MCHC 32.6 g/dl (32.0-36.0); MEAN CELL VOLUME 89.1 fl (80-96); MEAN PLT VOLUME 10.4 fl (7.5-11.1); PLATELET COUNT 208 10^3/uL (134-434); RBC 4.38 M/mm3 (3.60-5.2); WHITE BLOOD COUNT 5.8 K/mm3 (4.0-10.0)
[2022-12-05 08:04] LABS: URINE RBC 155.1 /uL (0-23.9); YEAST FEW (NEGATIVE)
[2022-12-05 08:07] LABS: POTASSIUM 4.4 mmol/L (3.5-5.1)
[2022-12-05 08:13] LABS: CALCIUM 9.9 mg/dL (8.5-10.1)
[2022-12-05 08:14] LABS: BLOOD UREA NITROGEN 16.9 mg/dL (7-18); MAGNESIUM 2.2 mg/dL (1.8-2.4)
[2022-12-05 08:18] LABS: CREATININE 1.2 mg/dL (0.55-1.3); PHOSPHOROUS 7.3 mg/dL (2.5-4.9)
[2022-12-05] MEDS: amLODIPine BESYLATE 5 MG TABLET (FP) PO SCH (09:11)
[2022-12-05] MEDS: LISINOPRIL 20 MG TABLET PO SCH (09:11)
[2022-12-05] MEDS: CARBIDOPA/LEVODOPA 10/100 TABLET (FP) PO SCH ×2 (11:26→23:26)
[2022-12-05] MEDS: ZIPRASIDONE 20 MG CAPSULE PO SCH (11:26)
[2022-12-05] MEDS ORDERED: INSULIN (NOVOLOG) ASPART 100 UNITS/ML 10ML VIAL ONE (21:49)
[2022-12-06] MEDS ORDERED: ACETAMINOPHEN 325 MG TABLET (FP) PO PRN (06:00)
[2022-12-06] MEDS: INSULIN SLIDING SCALE (NOVOLOG) 1 VIAL SQ SCH ×4 (06:29→23:22)
[2022-12-06] MEDS: ZIPRASIDONE 20 MG CAPSULE PO SCH (10:08)
[2022-12-06] MEDS: POLYETHYLENE GLYCOL (HEALTHYLAX) 3350 17 GM PACKET PO SCH ×2 (10:08→23:22)
[2022-12-06] MEDS: LISINOPRIL 20 MG TABLET PO SCH (10:09)
[2022-12-06] MEDS: amLODIPine BESYLATE 5 MG TABLET (FP) PO SCH (10:09)
[2022-12-06] MEDS: CARBIDOPA/LEVODOPA 10/100 TABLET (FP) PO SCH ×2 (10:13→23:22)
[2022-12-06] MEDS: CEFTRIAXONE 1 GM in DEXTROSE 5%-WATER - 50 ML IVPB SCH (10:14)
[2022-12-07] MEDS: INSULIN SLIDING SCALE (NOVOLOG) 1 VIAL SQ SCH ×2 (06:45→11:06)
[2022-12-07 07:19] VITALS: RESP 16
[2022-12-07 07:55] LABS: POTASSIUM 4.3 mmol/L (3.5-5.1)
[2022-12-07 07:59] LABS: BLOOD UREA NITROGEN 14.6 mg/dL (7-18); CALCIUM 9.1 mg/dL (8.5-10.1)
[2022-12-07 08:04] LABS: BILIRUBIN,TOTAL 0.3 mg/dL (0.2-1); TOT PROT 6.6 g/dl (6.4-8.2)
[2022-12-07 08:37] LABS: ALBUMIN 2.7 g/dl (3.4-5.0)
[2022-12-07] MEDS: CEFTRIAXONE 1 GM in DEXTROSE 5%-WATER - 50 ML IVPB SCH (10:24)
[2022-12-07] MEDS: POLYETHYLENE GLYCOL (HEALTHYLAX) 3350 17 GM PACKET PO SCH (10:24)
[2022-12-07] MEDS: ZIPRASIDONE 20 MG CAPSULE PO SCH (10:25)
[2022-12-07] MEDS: amLODIPine BESYLATE 5 MG TABLET (FP) PO SCH (10:25)
[2022-12-07] MEDS: LISINOPRIL 20 MG TABLET PO SCH (10:25)
[2022-12-07] MEDS: CARBIDOPA/LEVODOPA 10/100 TABLET (FP) PO SCH (10:26)
[2022-12-07 11:24] VITALS: BP 139/76; PULSE 91; TEMP 98.2
== END 2022-12-07 14:07 | disposition home or self-care (01) | DRG 690 ==
LOC: JER 21:37 → JERBED 12-05 01:59 → J7W 12-05 05:07
PROVIDERS: ADMIT Internal Medicine; ATTEND Family Medicine
DX: N39.0 Urinary tract infection, site not specified (principal); N17.9 Acute kidney failure, unspecified; I69.354 Hemiplegia and hemiparesis following cerebral infarction affecting left non-dominant side; E87.0 Hyperosmolality and hypernatremia; N18.9 Chronic kidney disease, unspecified; N13.30 Unspecified hydronephrosis; K59.00 Constipation, unspecified; E83.52 Hypercalcemia; I10 Essential (primary) hypertension; E78.5 Hyperlipidemia, unspecified; K21.9 Gastro-esophageal reflux disease without esophagitis; R10.9 Unspecified abdominal pain; N13.2 Hydronephrosis with renal and ureteral calculous obstruction; E11.43 Type 2 diabetes mellitus with diabetic autonomic (poly)neuropathy; E11.22 Type 2 diabetes mellitus with diabetic chronic kidney disease; E11.65 Type 2 diabetes mellitus with hyperglycemia; E11.649 Type 2 diabetes mellitus with hypoglycemia without coma; J44.9 Chronic obstructive pulmonary disease, unspecified; I12.9 Hypertensive chronic kidney disease with stage 1 through stage 4 chronic kidney disease, or unspecified chronic kidney disease
CPT/HCPCS: 36415; 71045-TC-FY; 74177-TC; 80048; 80053; 81003; 82962; 83605; 83690; 83735; 84100; 85025; 85610; 85730; 86850; 86900; 86901; 87081; 87086; 87186; 93005; 93010; 99285-25; Q9967

== ENCOUNTER 2023-10-08 18:52 | Inpatient (IN) | payer OTHER ==
[2023-10-08 20:08] VITALS: BMI 25.2
[2023-10-08] MEDS: SODIUM CHLORIDE 1,000 ML IV STA (20:31)
[2023-10-08 20:35] LABS: VENOUS O2 SATURATION 53.9 % (70-80); VENOUS PCO2 57.2 mmHg (38-52); VENOUS PH 7.302 (7.310-7.410)
[2023-10-08 20:47] LABS: BASO % 0.4 % (0-2.0); HEMATOCRIT 40.8 % (32.4-45.2); HEMOGLOBIN 13.5 GM/dL (10.7-15.3); LYMPH % 11.2 % (8-40); MCH 28.6 pg (25.7-33.7); MEAN CELL VOLUME 86.6 fl (80-96); MEAN PLT VOLUME 9.3 fl (7.5-11.1); MONO % 4.8 % (3.8-10.2); NEUT % 83.6 % (42.8-82.8); PLATELET COUNT 187 10^3/uL (134-434); RBC 4.71 M/mm3 (3.60-5.2); RDW 15.7 % (11.6-15.6); WHITE BLOOD COUNT 8.6 K/mm3 (4.0-10.0)
[2023-10-08 20:49] LABS: EPI CELLS 7 /uL (0-25.1); HYALINE CASTS 0 /uL (0-3.1); PH,URINE 6.5 (5.0-8.0); URINE APPEARANCE CLEAR; URINE BACTERIA 76 /uL (0-1359); URINE BILIRUBIN NEGATIVE (NEGATIVE); URINE COLOR YELLOW; URINE GLUCOSE (UA) 3+ (NEGATIVE); URINE KETONE 1+ (NEGATIVE); URINE LEUK ESTERASE NEGATIVE (NEGATIVE); URINE NITRITE NEGATIVE (NEGATIVE); URINE PROTEIN 3+ (NEGATIVE); URINE RBC 62 /uL (0-23.9); URINE UROBILINOGEN 0.2 mg/dL (0.2-1.0); URINE WBC 14 /uL (0-25.8)
[2023-10-08 20:50] LABS: CHLORIDE 101 mmol/L (98-107); POTASSIUM 4.5 mmol/L (3.5-5.1); SODIUM 135 mmol/L (136-145)
[2023-10-08 20:51] LABS: CALCIUM 9.6 mg/dL (8.5-10.1)
[2023-10-08 20:52] LABS: ANION GAP 5 mmol/L (4-13); CO2 29 mmol/L (21-32)
[2023-10-08 20:53] LABS: BLOOD UREA NITROGEN 27.6 mg/dL (7-18)
[2023-10-08 20:55] LABS: INR 0.96 (0.83-1.09); PHOSPHOROUS 3.3 mg/dL (2.5-4.9); PROTHROMBIN TIME (PATIENT) 11.1 SEC (9.7-13.0)
[2023-10-08 20:55] LABS: SGOT/AST 29 U/L (15-37); SGPT/ALT 36 U/L (13-61)
[2023-10-08 20:56] LABS: CREATININE 1.6 mg/dL (0.55-1.3)
[2023-10-08 20:57] LABS: ACTIVATED PTT 25.5 SECONDS (25.2-36.5)
[2023-10-08 20:57] LABS: CHOLESTEROL 347 mg/dL (50-200); TOT PROT 7.8 g/dl (6.4-8.2)
[2023-10-08 20:58] LABS: BILIRUBIN,TOTAL 0.4 mg/dL (0.2-1); LDL CHOLESTEROL (ONLY SJRH) 174 mg/dL (5-100)
[2023-10-08 20:59] LABS: ALK PHOS 112 U/L (45-117)
[2023-10-08 21:00] LABS: HDL CHOLESTEROL 129 mg/dL (40-60)
[2023-10-08 21:04] LABS: GLUCOSE,RANDOM 588 mg/dL (74-106)
[2023-10-08] MEDS ORDERED: HALOPERIDOL LACTATE 5 MG/ML ONE (21:19)
[2023-10-08] MEDS ORDERED: ACETAMINOPHEN INJECTION 100 ML IVPB ONE (21:33)
[2023-10-08] MEDS: HALOPERIDOL LACTATE 5 MG/ML IM ONE (21:40)
[2023-10-08] MEDS: INSULIN REGULAR HUMAN 100 UNITS/ML *VIAL SQ ONE (21:49)
[2023-10-08] MEDS: ACETAMINOPHEN 1000 MG/100 ML BAG IVPB ONE (21:50)
[2023-10-08] MEDS ORDERED: LABETALOL HCL 20 MG/4 ML VIAL ONE (21:51)
[2023-10-08] MEDS: LABETALOL HCL 5 MG/1 ML (100MG/20 ML VIAL) IVPUSH ONE (21:55)
[2023-10-08] MEDS ORDERED: PIPERACILLIN/TAZOB 4.5 GM 4.5 GM/100 ML BAG IVPB ONE (22:52)
[2023-10-08] MEDS: PIPERACILLIN/TAZOB 4.5 GM 4.5 GM in DEXTROSE 5%-WATER - 100 ML IVPB ONE (23:01)
[2023-10-08] MEDS ORDERED: VANCOMYCIN 1 GRAM (PRE-DOCKED) 1,000 MG/250 ML BAG IVPB ONE (23:57)
[2023-10-09] MEDS: VANCOMYCIN 1,000 MG in DEXTROSE 5%-WATER - 250 ML IVPB ONE (00:15)
[2023-10-09] MEDS: SODIUM CHLORIDE 1,000 ML IV SCH (01:39)
[2023-10-09] MEDS: INSULIN ASPART SLIDING SCALE (NOVOLOG) 1 VIAL SQ SCH ×2 (01:46→06:51)
[2023-10-09 08:57] LABS: CALCIUM 9.6 mg/dL (8.5-10.1)
[2023-10-09 09:01] LABS: CREATININE 1.9 mg/dL (0.55-1.3)
[2023-10-09] MEDS ORDERED: LISINOPRIL 20 MG TABLET ONE (09:26)
[2023-10-09] MEDS ORDERED: PIPERACILLIN/TAZOB 4.5 GM 4.5 GM/100 ML BAG IVPB ONE (09:26)
[2023-10-09] MEDS ORDERED: ASPIRIN 81 MG CHEWABLE TABLETS ONE (09:26)
[2023-10-09] MEDS ORDERED: amLODIPine BESYLATE 5 MG TABLET (FP) ONE (09:26)
[2023-10-09] MEDS ORDERED: INSULIN (LEVEMIR) 100 UNITS/ML UNITS SQ ONE (09:27)
[2023-10-09] MEDS: INSULIN (LEVEMIR) 100 UNITS/ML UNITS SQ SCH ×2 (09:39→22:18)
[2023-10-09] MEDS: ASPIRIN 81 MG CHEWABLE TABLETS PO SCH (09:40)
[2023-10-09] MEDS: amLODIPine BESYLATE 5 MG TABLET (FP) PO SCH (09:40)
[2023-10-09] MEDS ORDERED: CARBIDOPA PO SCH (10:00)
[2023-10-09] MEDS ORDERED: LEVODOPA PO SCH (10:00)
[2023-10-09] MEDS: LISINOPRIL 20 MG TABLET PO SCH (10:01)
[2023-10-09] MEDS: PIPERACILLIN/TAZOB 4.5 GM 4.5 GM in DEXTROSE 5%-WATER 100 ML IVPB SCH (10:02)
[2023-10-09] MEDS: SODIUM CHLORIDE 0.45% 1,000 ML IV SCH (17:47)
[2023-10-09] MEDS: CEFTRIAXONE 1 GM in DEXTROSE 5%-WATER - 50 ML IVPB SCH (17:48)
[2023-10-09] MEDS ORDERED: INSULIN (NOVOLOG) ASPART 100 UNITS/ML 10ML VIAL ONE (21:24)
[2023-10-10] MEDS ORDERED: INSULIN (NOVOLOG) ASPART 100 UNITS/ML 10ML VIAL ONE ×4 (03:21→21:34)
[2023-10-10] MEDS: INSULIN (LEVEMIR) 100 UNITS/ML UNITS SQ SCH (06:31)
[2023-10-10 07:19] LABS: HEMATOCRIT 33.6 % (32.4-45.2); MCH 28.8 pg (25.7-33.7); MCHC 32.8 g/dl (32.0-36.0); MEAN CELL VOLUME 87.7 fl (80-96); PLATELET COUNT 142 10^3/uL (134-434); RBC 3.83 M/mm3 (3.60-5.2); RDW 15.6 % (11.6-15.6); WHITE BLOOD COUNT 7.7 K/mm3 (4.0-10.0)
[2023-10-10 07:37] LABS: LYMPH % 31.2 % (8-40); MONO % 8.6 % (3.8-10.2); NEUT % 58.5 % (42.8-82.8)
[2023-10-10 07:38] LABS: BASO % 0.4 % (0-2.0); EOS % 1.3 % (0-4.5)
[2023-10-10 07:42] LABS: POTASSIUM 3.3 mmol/L (3.5-5.1)
[2023-10-10 07:50] LABS: BLOOD UREA NITROGEN 20.8 mg/dL (7-18)
[2023-10-10 07:53] LABS: CREATININE 1.5 mg/dL (0.55-1.3)
[2023-10-10 07:55] LABS: BILIRUBIN,TOTAL 0.3 mg/dL (0.2-1)
[2023-10-10 07:58] LABS: ALBUMIN 2.1 g/dl (3.4-5.0); TOT PROT 5.7 g/dl (6.4-8.2)
[2023-10-10 09:19] LABS: ANISOCYTOSIS 1+; MACROCYTOSIS 0
[2023-10-10] MEDS: POTASSIUM CHLORIDE ORAL LIQUID 20 MEQ/15 ML PO ONE (13:01)
[2023-10-10] MEDS ORDERED: INSULIN (LEVEMIR) 100 UNITS/ML UNITS SQ SCH (22:00)
[2023-10-11] MEDS ORDERED: INSULIN (NOVOLOG) ASPART 100 UNITS/ML 10ML VIAL ONE (03:28)
[2023-10-11 06:23] VITALS: RESP 20
[2023-10-11 07:26] LABS: BLOOD UREA NITROGEN 25.1 mg/dL (7-18); CALCIUM 8.4 mg/dL (8.5-10.1)
[2023-10-11 07:30] LABS: CREATININE 1.4 mg/dL (0.55-1.3)
[2023-10-11] MEDS ORDERED: INSULIN (LEVEMIR) 100 UNITS/ML UNITS SQ SCH ×2 (09:00→09:01)
[2023-10-11] MEDS: amLODIPine BESYLATE 10 MG TABLET (FP) PO SCH (10:06)
[2023-10-11] MEDS: INSULIN (LEVEMIR) 100 UNITS/ML UNITS SQ SCH (21:45)
[2023-10-12] MEDS: INSULIN (LEVEMIR) 100 UNITS/ML UNITS SQ SCH (06:57)
[2023-10-12] MEDS: PIPERACILLIN/TAZOB 4.5 GM 4.5 GM in DEXTROSE 5%-WATER 100 ML IVPB SCH (09:32)
[2023-10-12 12:27] VITALS: BP 132/65; PULSE 73; TEMP 98.5
== END 2023-10-12 12:19 | disposition home or self-care (01) | DRG 637 ==
LOC: JER 18:52 → JERBED 23:16 → J4W 10-09 14:20
PROVIDERS: ADMIT Internal Medicine; ATTEND Family Medicine
DX: E10.65 Type 1 diabetes mellitus with hyperglycemia (principal); G93.41 Metabolic encephalopathy; I16.1 Hypertensive emergency; I69.354 Hemiplegia and hemiparesis following cerebral infarction affecting left non-dominant side; N20.0 Calculus of kidney; E83.52 Hypercalcemia; E10.40 Type 1 diabetes mellitus with diabetic neuropathy, unspecified; K59.00 Constipation, unspecified; F32.A Depression, unspecified; E78.00 Pure hypercholesterolemia, unspecified; R79.89 Other specified abnormal findings of blood chemistry; E86.0 Dehydration; E10.43 Type 1 diabetes mellitus with diabetic autonomic (poly)neuropathy; K31.84 Gastroparesis; J44.9 Chronic obstructive pulmonary disease, unspecified; K21.9 Gastro-esophageal reflux disease without esophagitis; I12.9 Hypertensive chronic kidney disease with stage 1 through stage 4 chronic kidney disease, or unspecified chronic kidney disease; E10.22 Type 1 diabetes mellitus with diabetic chronic kidney disease; N18.9 Chronic kidney disease, unspecified; Z89.422 Acquired absence of other left toe(s)
CPT/HCPCS: 0241U-QW; 36415; 70450-TC; 70496-TC; 70498-TC; 70551-TC; 71045-TC-FY; 76775-TC; 80048; 80053; 80061; 81003; 82010; 82550; 82553; 82803; 82962; 83036; 83605; 83735; 84100; 84484; 85025; 85610; 85730; 86850; 86900; 86901; 87040; 87086; 87651; 87899; 93005; 93010; 97116-GP; 97162-GP; 99285-25; J0131

== ENCOUNTER 2023-12-05 00:35 | Observation (INO) | payer OTHER ==
[2023-12-05 02:09] LABS: BASO % 0.3 % (0-2.0); EOS % 0.2 % (0-4.5); HEMATOCRIT 37.3 % (32.4-45.2); HEMOGLOBIN 12.3 GM/dL (10.7-15.3); LYMPH % 8.7 % (8-40); MCH 29.4 pg (25.7-33.7); MCHC 32.9 g/dl (32.0-36.0); MEAN CELL VOLUME 89.5 fl (80-96); MEAN PLT VOLUME 8.9 fl (7.5-11.1); MONO % 2.1 % (3.8-10.2); NEUT % 88.7 % (42.8-82.8); PLATELET COUNT 209 10^3/uL (134-434); RBC 4.17 M/mm3 (3.60-5.2); RDW 15.5 % (11.6-15.6); WHITE BLOOD COUNT 8.5 K/mm3 (4.0-10.0)
[2023-12-05] MEDS ORDERED: amLODIPine BESYLATE 10 MG TABLET (FP) ONE (02:12)
[2023-12-05] MEDS: amLODIPine BESYLATE 10 MG TABLET (FP) PO ONE (02:13)
[2023-12-05 02:29] LABS: CALCIUM 9.5 mg/dL (8.5-10.1)
[2023-12-05 02:30] LABS: ALBUMIN 3.2 g/dl (3.4-5.0); MAGNESIUM 2.2 mg/dL (1.8-2.4)
[2023-12-05 02:33] LABS: CREATININE 1.1 mg/dL (0.55-1.3)
[2023-12-05 02:34] LABS: INR 0.86 (0.83-1.09); PROTHROMBIN TIME (PATIENT) 9.9 SEC (9.7-13.0)
[2023-12-05 02:35] LABS: BILIRUBIN,TOTAL 0.2 mg/dL (0.2-1); TOT PROT 7.4 g/dl (6.4-8.2)
[2023-12-05 02:37] LABS: ACTIVATED PTT 30.1 SECONDS (25.2-36.5)
[2023-12-05] MEDS ORDERED: hydrALAZINE HCL 20 MG/ML VIAL ONE (04:12)
[2023-12-05] MEDS: hydrALAZINE HCL 20 MG/ML VIAL IVPUSH ONE (04:20)
[2023-12-05] MEDS ORDERED: ACETAMINOPHEN INJECTION 100 ML IVPB ONE (05:03)
[2023-12-05] MEDS: ACETAMINOPHEN 1000 MG/100 ML BAG IVPB ONE (05:10)
[2023-12-05 06:02] VITALS: BMI 23.9
[2023-12-05] MEDS: POLYETHYLENE GLYCOL (HEALTHYLAX) 3350 17 GM PACKET PO ONE (06:34)
[2023-12-05] MEDS: INSULIN ASPART SLIDING SCALE (NOVOLOG) 1 VIAL SQ SCH ×2 (06:34→21:44)
[2023-12-05 06:36] LABS: EPI CELLS 9 /uL (0-25.1); HYALINE CASTS 0 /uL (0-3.1); URINE APPEARANCE CLEAR; URINE BACTERIA 43 /uL (0-1359); URINE BILIRUBIN NEGATIVE (NEGATIVE); URINE COLOR YELLOW; URINE GLUCOSE (UA) 1+ (NEGATIVE); URINE KETONE NEGATIVE (NEGATIVE); URINE LEUK ESTERASE NEGATIVE (NEGATIVE); URINE NITRITE NEGATIVE (NEGATIVE); URINE PROTEIN 3+ (NEGATIVE); URINE RBC 42 /uL (0-23.9); URINE UROBILINOGEN 0.2 mg/dL (0.2-1.0); URINE WBC 10 /uL (0-25.8)
[2023-12-05 08:21] LABS: HEMATOCRIT 31.8 % (32.4-45.2); HEMOGLOBIN 10.7 GM/dL (10.7-15.3); MCHC 33.7 g/dl (32.0-36.0); MEAN CELL VOLUME 88.9 fl (80-96); MEAN PLT VOLUME 8.4 fl (7.5-11.1); PLATELET COUNT 192 10^3/uL (134-434); RBC 3.57 M/mm3 (3.60-5.2); RDW 15.4 % (11.6-15.6); WHITE BLOOD COUNT 6.9 K/mm3 (4.0-10.0)
[2023-12-05 08:34] LABS: POTASSIUM 4.2 mmol/L (3.5-5.1)
[2023-12-05 08:37] LABS: ALBUMIN 2.7 g/dl (3.4-5.0); BLOOD UREA NITROGEN 19.6 mg/dL (7-18); CALCIUM 9.3 mg/dL (8.5-10.1)
[2023-12-05 08:40] LABS: CREATININE 0.9 mg/dL (0.55-1.3); PHOSPHOROUS 2.6 mg/dL (2.5-4.9)
[2023-12-05 08:42] LABS: BILIRUBIN,TOTAL 0.3 mg/dL (0.2-1); TOT PROT 6.6 g/dl (6.4-8.2)
[2023-12-05] MEDS: ENOXAPARIN NA (PORCINE) 40 MG/0.4 ML DISP.SYRIN SQ SCH (09:59)
[2023-12-05 14:21] LABS: EOS % 0.4 % (0-4.5); HEMATOCRIT 32.1 % (32.4-45.2); HEMOGLOBIN 10.7 GM/dL (10.7-15.3); LYMPH % 20.5 % (8-40); MCH 29.5 pg (25.7-33.7); MCHC 33.2 g/dl (32.0-36.0); MEAN CELL VOLUME 89.1 fl (80-96); MEAN PLT VOLUME 9.7 fl (7.5-11.1); MONO % 6.2 % (3.8-10.2); NEUT % 71.9 % (42.8-82.8); PLATELET COUNT 196 10^3/uL (134-434); RBC 3.61 M/mm3 (3.60-5.2); RDW 15.4 % (11.6-15.6); WHITE BLOOD COUNT 6.9 K/mm3 (4.0-10.0)
[2023-12-05] MEDS: IRON SUCROSE INJECTION 200 MG in SODIUM CHLORIDE 100 ML IVPB ONE (15:29)
[2023-12-05] MEDS: PANTOPRAZOLE 40 MG TABLET PO SCH (15:32)
[2023-12-05] MEDS: LISINOPRIL 20 MG TABLET PO SCH (15:32)
[2023-12-05] MEDS: POLYETHYLENE GLYCOL (HEALTHYLAX) 3350 17 GM PACKET PO SCH ×2 (15:33→21:44)
[2023-12-05] MEDS ORDERED: CARBIDOPA PO SCH (22:00)
[2023-12-05] MEDS ORDERED: LEVODOPA PO SCH (22:00)
[2023-12-06] MEDS ORDERED: POLYETHYLENE GLYCOL (HEALTHYLAX) 3350 17 GM PACKET PO PRN (05:41)
[2023-12-06] MEDS: INSULIN (LEVEMIR) 100 UNITS/ML UNITS SQ SCH (06:23)
[2023-12-06 08:39] LABS: BASO % 0.8 % (0-2.0); EOS % 2.6 % (0-4.5); HEMOGLOBIN 10.4 GM/dL (10.7-15.3); LYMPH % 35.1 % (8-40); MCH 29.5 pg (25.7-33.7); MCHC 32.5 g/dl (32.0-36.0); MEAN CELL VOLUME 90.6 fl (80-96); MEAN PLT VOLUME 9.3 fl (7.5-11.1); NEUT % 54.5 % (42.8-82.8); PLATELET COUNT 195 10^3/uL (134-434); RBC 3.53 M/mm3 (3.60-5.2); WHITE BLOOD COUNT 4.5 K/mm3 (4.0-10.0)
[2023-12-06] MEDS: amLODIPine BESYLATE 10 MG TABLET (FP) PO SCH (10:18)
[2023-12-06] MEDS: ASPIRIN 81 MG CHEWABLE TABLETS PO SCH (10:18)
[2023-12-06 13:15] VITALS: BP 176/75; PULSE 81; RESP 17; TEMP 98.3
[2023-12-06] MEDS ORDERED: NIFEdipine E.R 60 MG TABLET PO SCH (22:00)
== END 2023-12-06 18:54 | disposition home health service (06) ==
LOC: JER 00:35 → JERBED 03:23 → J4S 06:27
PROVIDERS: ADMIT Internal Medicine; ATTEND Family Medicine
PROC: 3E033NZ Introduction of Analgesics, Hypnotics, Sedatives into Peripheral Vein, Percutaneous Approach (ICD-10-PCS; principal; 2023-12-05)
PROC: 3E023GC Introduction of Other Therapeutic Substance into Muscle, Percutaneous Approach (ICD-10-PCS; 2023-12-05)
PROC: 3E033GC Introduction of Other Therapeutic Substance into Peripheral Vein, Percutaneous Approach (ICD-10-PCS; 2023-12-05)
PROC: 3E013VG Introduction of Insulin into Subcutaneous Tissue, Percutaneous Approach (ICD-10-PCS; 2023-12-05)
DX: D64.9 Anemia, unspecified (principal); I16.0 Hypertensive urgency; R77.8 Other specified abnormalities of plasma proteins; I69.954 Hemiplegia and hemiparesis following unspecified cerebrovascular disease affecting left non-dominant side; E16.2 Hypoglycemia, unspecified; K31.84 Gastroparesis; I10 Essential (primary) hypertension; E78.5 Hyperlipidemia, unspecified; K59.00 Constipation, unspecified; K21.9 Gastro-esophageal reflux disease without esophagitis; N28.9 Disorder of kidney and ureter, unspecified
CPT/HCPCS: 36415; 71045-TC-FY; 80053; 81003; 82607; 82728; 82962; 83036; 83540; 83550; 83735; 84100; 84484; 85025; 85027; 85610; 85730; 87077; 87086; 93005; 93010; 93970-TC; 99285-25; G0378; J0131; J1756

== ENCOUNTER 2025-01-17 20:10 | Observation (INO) | payer OTHER ==
[2025-01-17 21:12] LABS: BG HCT 39.0 % (32.4-45.2); VENOUS BASE EXCESS 2.5 mmol/L (-2-2); VENOUS O2 SATURATION 32.0 % (70-80); VENOUS PCO2 65.5 mmHg (38-52); VENOUS PH 7.29 (7.310-7.410)
[2025-01-17 21:15] LABS: ABSOLUTE IMMATURE GRANULOCYTES 0.01 x10^3/uL (0.0-0.031); BASOPHILS # 0.03 x10^3/uL (0.01-0.08); EOSINOPHIL % 0.8 % (0.7-5.8); EOSINOPHILS # 0.05 x10^3/uL (0.04-0.36); MCHC 32.4 g/dl (32.2-35.5); MEAN CELL VOLUME 89.5 fl (79.4-94.8); MEAN PLT VOLUME 11.5 fl (9.4-12.3); MONOCYTE # 0.38 x10^3/uL (0.24-0.86); MONOCYTE % 6.2 % (4.7-12.5); RDW 14.3 % (12.4-16.6)
[2025-01-17 21:19] LABS: EPI CELLS 14 /uL (0-25.1); HYALINE CASTS 0 /uL (0-3.1); URINE APPEARANCE CLEAR; URINE BACTERIA 105 /uL (0-1359); URINE BILIRUBIN NEGATIVE (NEGATIVE); URINE COLOR YELLOW; URINE GLUCOSE (UA) 3+ (NEGATIVE); URINE KETONE NEGATIVE (NEGATIVE); URINE LEUK ESTERASE NEGATIVE (NEGATIVE); URINE NITRITE NEGATIVE (NEGATIVE); URINE PROTEIN 3+ (NEGATIVE); URINE RBC 11 /uL (0-23.9); URINE UROBILINOGEN 0.2 mg/dL (0.2-1.0); URINE WBC 55 /uL (0-25.8)
[2025-01-17] MEDS: LACTATED RINGERS SOLUTION 1000 ML INFUS.BAG IV ONE (21:23)
[2025-01-17 21:36] LABS: CO2 31 mmol/L (21-32)
[2025-01-17 21:39] LABS: CREATININE 2.4 mg/dL (0.55-1.3); SGOT/AST 15 U/L (15-37); SGPT/ALT 29 U/L (13-61)
[2025-01-17 21:40] LABS: TOT PROT 7.4 g/dl (6.4-8.2)
[2025-01-17 21:42] LABS: ALK PHOS 106 U/L (45-117)
[2025-01-17 21:43] LABS: GLUCOSE,RANDOM 725 mg/dL (74-106)
[2025-01-17] MEDS: INSULIN (NOVOLOG) ASPART 100 UNITS/ML 10ML VIAL SQ ONE (21:49)
[2025-01-17 22:26] LABS: HIV INTERPRETATION NEGATIVE (NEGATIVE)
[2025-01-17 22:27] LABS: HCV DIAGNOSTIC IN-HOUSE W/RFLX NON-REACTIVE (NONREACTIVE)
[2025-01-18] MEDS ORDERED: ACETAMINOPHEN 325 MG TABLET (FP) PO PRN (00:59)
[2025-01-18] MEDS ORDERED: ONDANSETRON 4 MG/2 ML VIAL IVPUSH PRN (00:59)
[2025-01-18] MEDS: SODIUM CHLORIDE 1,000 ML IV SCH (01:58)
[2025-01-18] MEDS ORDERED: INSULIN GLARGINE (LANTUS) 100 UNITS/ML UNITS SQ ONE (07:24)
[2025-01-18] MEDS: INSULIN GLARGINE (LANTUS) 100 UNITS/ML UNITS SQ SCH (07:45)
[2025-01-18] MEDS: INSULIN (NOVOLOG) ASPART 100 UNITS/ML 10ML VIAL SQ SCH (08:31)
[2025-01-18] MEDS: INSULIN ASPART SLIDING SCALE (NOVOLOG) 1 VIAL SQ SCH (09:24)
[2025-01-18] MEDS ORDERED: METOPROLOL TARTRATE 25 MG TABLET (FP) ONE (09:28)
[2025-01-18] MEDS ORDERED: amLODIPine BESYLATE 5 MG TABLET (FP) ONE (09:28)
[2025-01-18] MEDS ORDERED: LISINOPRIL 20 MG TABLET ONE (09:28)
[2025-01-18] MEDS: LACTOBACILLUS ACIDOPHILUS 1 TABLET PO SCH (09:30)
[2025-01-18] MEDS: amLODIPine BESYLATE 5 MG TABLET (FP) PO SCH (09:31)
[2025-01-18] MEDS: CALCIUM 500MG/VIT-D 200 UNITS COMBO TABLET (FP) PO SCH (09:31)
[2025-01-18] MEDS: METOPROLOL TARTRATE 25 MG TABLET (FP) PO SCH (09:31)
[2025-01-18] MEDS: NORTRIPTYLINE HCL 10 MG CAPSULE PO SCH (09:31)
[2025-01-18] MEDS: LISINOPRIL 20 MG TABLET PO SCH (09:32)
[2025-01-18 10:13] LABS: CO2 33.0 mmol/L (21-32); GLUCOSE,RANDOM 349.0 mg/dL (74-106)
[2025-01-18 10:16] LABS: CREATININE 1.8 mg/dL (0.55-1.3)
[2025-01-18 10:45] LABS: BG HCT 33.0 % (32.4-45.2); VENOUS BASE EXCESS 2.1 mmol/L (-2-2); VENOUS O2 SATURATION 67.2 % (70-80); VENOUS PCO2 57.0 mmHg (38-52); VENOUS PH 7.325 (7.310-7.410)
[2025-01-18] MEDS ORDERED: ENOXAPARIN NA (PORCINE) 40 MG/0.4 ML DISP.SYRIN SQ ONE (13:28)
[2025-01-18] MEDS: ENOXAPARIN NA (PORCINE) 40 MG/0.4 ML DISP.SYRIN SQ SCH (13:29)
[2025-01-18] MEDS ORDERED: DEXTROSE 50%-WATER 25 GM/50 ML DISP.SYRIN ONE (17:17)
[2025-01-18] MEDS: DEXTROSE 50%-WATER - 25 GM/50 ML VIAL IVPUSH ONE (17:32)
[2025-01-18] MEDS ORDERED: DEXTROSE 50%-WATER 25 GM/50 ML DISP.SYRIN IVPUSH PRN (17:39)
[2025-01-18] MEDS ORDERED: INSULIN GLARGINE (LANTUS) 100 UNITS/ML UNITS SQ SCH (17:51)
[2025-01-18] MEDS ORDERED: hydrALAZINE HCL 50 MG TABLET (FP) ONE ×2 (18:31→20:29)
[2025-01-18] MEDS: hydrALAZINE HCL 50 MG TABLET (FP) PO ONE (19:00)
[2025-01-18] MEDS ORDERED: ATORVASTATIN CA 10 MG TABLET (FP) ONE (20:29)
[2025-01-18] MEDS: ATORVASTATIN CA 20 MG TABLET (FP) PO SCH (21:55)
[2025-01-19 00:12] VITALS: BMI 23.8
[2025-01-19] MEDS: CARVEDILOL 25 MG TABLET (FP) PO SCH (01:18)
[2025-01-19] MEDS: amLODIPine BESYLATE 10 MG TABLET (FP) PO SCH (09:17)
[2025-01-19 09:20] LABS: MCHC 33.0 g/dl (32.2-35.5); MEAN CELL VOLUME 87.4 fl (79.4-94.8); MEAN PLT VOLUME 11.2 fl (9.4-12.3); RDW 13.9 % (12.4-16.6)
[2025-01-19] MEDS: INSULIN GLARGINE (LANTUS) 100 UNITS/ML UNITS SQ SCH (09:31)
[2025-01-19 10:54] LABS: CO2 31.0 mmol/L (21-32); GLUCOSE,RANDOM 144.0 mg/dL (74-106); SGOT/AST 23.0 U/L (15-37); SGPT/ALT 29.0 U/L (13-61)
[2025-01-19 10:56] LABS: TOT PROT 6.0 g/dl (6.4-8.2)
[2025-01-19 10:57] LABS: ALK PHOS 81.0 U/L (45-117); CREATININE 1.5 mg/dL (0.55-1.3)
[2025-01-19] MEDS ORDERED: DEXTROSE 50%-WATER 25 GM/50 ML DISP.SYRIN IVPUSH PRN (11:06)
[2025-01-20 04:43] VITALS: RESP 18
[2025-01-20 07:58] LABS: ABSOLUTE IMMATURE GRANULOCYTES 0.01 x10^3/uL (0.0-0.031); BASOPHILS # 0.02 x10^3/uL (0.01-0.08); EOSINOPHIL % 1.7 % (0.7-5.8); EOSINOPHILS # 0.09 x10^3/uL (0.04-0.36); MCHC 32.5 g/dl (32.2-35.5); MEAN CELL VOLUME 88.1 fl (79.4-94.8); MEAN PLT VOLUME 11.1 fl (9.4-12.3); MONOCYTE # 0.35 x10^3/uL (0.24-0.86); MONOCYTE % 6.8 % (4.7-12.5); RDW 14.3 % (12.4-16.6)
[2025-01-20 09:38] LABS: GLUCOSE,RANDOM 71.0 mg/dL (74-106)
[2025-01-20 09:39] LABS: CO2 30.0 mmol/L (21-32)
[2025-01-20 09:41] LABS: CREATININE 1.6 mg/dL (0.55-1.3); SGOT/AST 17.0 U/L (15-37); SGPT/ALT 22.0 U/L (13-61)
[2025-01-20 09:43] LABS: ALK PHOS 69.0 U/L (45-117); TOT PROT 5.5 g/dl (6.4-8.2)
[2025-01-20] MEDS: hydrALAZINE HCL 25 MG TABLET (FP) PO SCH (09:56)
[2025-01-20 11:12] VITALS: BP 133/77; PULSE 84; TEMP 98.4
== END 2025-01-20 15:56 | disposition home health service (06) ==
LOC: JER 20:10 → JERBED 23:06 → OBSVTOIN 23:06 → INTOOBSV 23:06 → UNDOADMOB 23:06 → JERBED 01-18 00:59 → J4S 01-18 22:54
PROVIDERS: ADMIT Hospitalist; ATTEND Family Medicine
DX: E11.65 Type 2 diabetes mellitus with hyperglycemia (principal); N17.9 Acute kidney failure, unspecified; I16.0 Hypertensive urgency; I12.9 Hypertensive chronic kidney disease with stage 1 through stage 4 chronic kidney disease, or unspecified chronic kidney disease; E11.22 Type 2 diabetes mellitus with diabetic chronic kidney disease; N18.9 Chronic kidney disease, unspecified; R91.1 Solitary pulmonary nodule; J18.1 Lobar pneumonia, unspecified organism; E11.40 Type 2 diabetes mellitus with diabetic neuropathy, unspecified; E78.5 Hyperlipidemia, unspecified; K21.9 Gastro-esophageal reflux disease without esophagitis; D63.1 Anemia in chronic kidney disease; J44.9 Chronic obstructive pulmonary disease, unspecified; I69.954 Hemiplegia and hemiparesis following unspecified cerebrovascular disease affecting left non-dominant side; Z89.022 Acquired absence of left finger(s); Z79.84 Long term (current) use of oral hypoglycemic drugs; Z79.4 Long term (current) use of insulin
CPT/HCPCS: 36415; 71046-TC-FY; 71250-TC; 76775-TC; 76856-TC; 80048; 80053; 81003; 82010; 82803; 82962; 83036; 83735; 83930; 84484; 85025; 85027; 86803; 87086; 87389; 93005; 93010; 96372; 96374; 99285-25; G0378